=== PATIENT | female | born 1960 | race Caucasian/White ===

== ENCOUNTER → 2017-06-18 | Outpatient (CLI) | payer MEDICAID, SELFPAY | PROVIDERS: Family Provider Family Medicine; Visit Provider Orthopaedic Surgery | DX: M17.0 Bilateral primary osteoarthritis of knee (principal) | CPT/HCPCS: 73564 ==

== ENCOUNTER → 2017-07-10 15:59 | Outpatient (CLI) | payer MEDICAID, SELFPAY ==
--- NOTE | 2017-07-10 16:05 | MR_ITS ---
MR knee LT wo con HISTORY: Left knee pain mostly medial swelling and limited range of motion. ITS.REASON: INJURY OF LEFT KNEE, INITIAL ENCOUNTER ORDERING PHYSICIAN: Major Wasserman MD PATIENT AGE: 56 years COMPARISON: 11/07/2016 TECHNIQUE: Standard multiplanar multiecho sequences are performed without contrast. FINDINGS: The oblique sagittal images for the cruciate ligaments are limited. The patient was not able to tolerate repeating the images. Once again, the ACL is not identified consistent with chronic tear. There is thickening of the posterior cruciate ligament. There is a longitudinal tear involving the posterior horn of the medial meniscus which was not evident on the previous exam. The anterior horn of the lateral meniscus is not identified consistent with chronic tear/maceration versus postsurgical change. There is increased signal intensity of the posterior horn of the lateral meniscus but no obvious tear. There is tendinopathy/tendinosis of the patellar tendon. The collateral ligaments appear intact. There is a moderate sized knee joint effusion mainly in the suprapatellar region. Patellar cartilage is very thin to absent. There are severe osteoarthritic changes of all 3 compartments. There has been interval injection of radio opaque material into the subchondral cystic area of the lateral tibial plateau with decreased T2 signal in this region. Small subchondral cystic changes are present at the lateral tibial plateau centrally as well as the medial tibial plateau. There is increased T2 signal involving the medial tibial plateau which is more prominent than when compared to the previous exam consistent with underlying bone marrow edema. T2 hyperintensity also involves the subchondral portion of the lateral femoral condyle with cortical irregularity. There is also increased T2 signal involving the superior patella more prominent on today's study. IMPRESSION: 1. There is a new longitudinal tear involving posterior horn of the medial meniscus. 2. Anterior horn of the lateral meniscus is not identified consistent with chronic tear/maceration 3. Chronic tear of the ACL. 4. Moderate size knee joint effusion with severe tricompartmental osteoarthritis and subchondral cystic changes/bone marrow edema of the distal femur and proximal tibia and patella as described above. Prior injection of hypointense material within the lateral tibial plateau.
== END ==
PROVIDERS: Family Provider Family Medicine; PCP Family Medicine; Visit Provider Orthopaedic Surgery
DX: S89.92XA Unspecified injury of left lower leg, initial encounter (principal)
CPT/HCPCS: 73721

== ENCOUNTER → 2017-08-11 16:28 | Outpatient (CLI) | payer MEDICAID, SELFPAY ==
--- NOTE | 2017-08-11 | XR_ITS ---
XR chest 2V HISTORY: Hypertension ORDERING PHYSICIAN: Major Wasserman MD PATIENT AGE: 56 years FINDINGS: The cardiomediastinal silhouette and pulmonary vascularity are within normal limits. The lungs are clear without infiltrates, suspicious nodules, or pleural effusions. No acute bony abnormalities. There is moderate lumbar scoliosis convex left IMPRESSION: No acute finding or change from 12/09/2016
[2017-08-11 16:40] LABS: Microscopic, Urine URINE MICROSCOPIC (MICROSCOPIC)
[2017-08-11 17:02] LABS: Appearance,Urine CLEAR (Clear); Bilirubin,Urine Negative (Negative); Blood, Urine Negative (Negative); Color,Urine YELLOW (Yellow); Glucose,Urine (UA) Negative (Negative); Ketones,Urine Negative (Negative); Leukocyte Esterase,Urine Negative (Negative); Nitrate,Urine Negative (Negative); PH,Urine 5.5 (5.0-8.5); Protein,Urine Negative (Negative); Urobilinogen,Urine 0.2 EU/dl (0.2)
[2017-08-11 17:11] LABS: Basophils % 0.8 % (0.1-2.0); Eosinophils # 0.9 K/mm3 (0.0-0.4); Eosinophils % 17.9 % (0.1-12.0); Hemoglobin 13.4 g/dL (12.2-16.2); Lymphocytes # 1.3 K/mm3 (0.7-4.5); Lymphocytes % 24.5 K/mm3 (10-50); Mean Corpuscular HGB Conc 31.9 g/dL (31.8-35.4); Mean Corpuscular Hemoglobin 31.3 pg (27.0-31.2); Mean Corpuscular Volume 98.1 fl (81-99); Mean Platelet Volume 7.8 fl (7.4-10.4); Monocytes # 0.3 K/mm3 (0.1-1.0); Monocytes % 5.2 % (1.7-9.3); Neutrophils # 2.7 K/mm3 (1.8-7.8); Neutrophils % 51.7 % (37.0-80.0); Platelet Count 252 K/mm3 (142-424); Red Blood Count 4.28 M/mm3 (4.20-5.40); Red Cell Distribution Width 12.8 % (11.5-17.5); White Blood Count 5.1 K/mm3 (4.8-10.8)
[2017-08-11 17:17] LABS: INR 1.03 (0.9-1.1); Prothrombin Time 11.1 seconds (9.4-11.8)
[2017-08-11 17:24] LABS: Bacteria,Urine Trace /lpf; Squamous Epithelial Cell,Urine Occasional #/hpf (0-5)
[2017-08-11 18:09] LABS: Erythrocyte Sedimentation Rate 21 mm/hr (0-30)
[2017-08-11 19:33] LABS: Alanine Aminotransferase 95 U/L (12-78); Albumin Level 3.7 gm/dL (3.4-5.0); Albumin/Globulin Ratio 1.4 (1.1-1.8); Alkaline Phosphatase 99 U/L (46-116); Anion Gap 14.1 mEq/L (5-15); Aspartate Amino Transferase 47 U/L (15-37); Bilirubin,Total 0.4 mg/dL (0.2-1.0); Blood Urea Nitrogen 27 mg/dL (7-18); Calcium 8.9 mg/dL (8.5-10.1); Carbon Dioxide 27 mmol/L (21.0-32.0); Chloride 106 mmol/L (98-107); Creatinine,Serum 1.03 mg/dL (0.55-1.02); Estimated Glomerular Filt Rate 55 ml/min (>60); GFR (African American) 67 ML/MIN (>60); Globulin 2.6 gm/dl (1.3-3.2); Glucose 108 mg/dL (74-106); Potassium 4.1 mmoL/L (3.5-5.1); Sodium 143 mmol/L (136-145); Total Protein,Serum 6.3 gm/dL (6.4-8.2)
[2017-08-11 19:36] LABS: C-Reactive Protein < 0.2 mg/L (0.0-0.9)
== END ==
PROVIDERS: PCP Nurse Practitioner; Visit Provider Orthopaedic Surgery
DX: Z01.818 Encounter for other preprocedural examination (principal); M17.12 Unilateral primary osteoarthritis, left knee
CPT/HCPCS: 36415; 71046; 80053; 81001; 85025; 85610; 85651; 86140; 86850; 93005

== ENCOUNTER 2017-08-19 14:29 | Inpatient (IN) | payer MEDICAID, SELFPAY ==
[2017-08-18 12:52] VITALS: BMI 41.0
[2017-08-19] VITALS (19 sets, daily range): BP systolic 112–197; BP diastolic 70–102; PULSE 63–78; RESP 17–20; TEMP 36.1–43; O2SAT 94–98; BMI 41.0; BMI 44.6
--- NOTE | 2017-08-19 | XR_ITS ---
Repeat View XR CLINICAL INDICATION: Knee replacement ORDERING PHYSICIAN: Major Wasserman MD PATIENT AGE: 56 years COMPARISON: None FINDINGS: 2 images submitted with the C-arm show good alignment of the total knee arthroplasty. Fluoroscopy time 5 seconds IMPRESSION: Status post total arthroplasty as described above
--- NOTE | 2017-08-19 06:36 | HMH.ANESCL ---
[facility] Anesthesia Checklist - Structural Data Admitted From: Home Planned Operative Procedure/s: l total knee Consent for Planned Operative Procedure(s) Verified: Yes Verified Documents: Surgical Consent - Airway Assessment C-Spine Mobility Assessed: Yes TMJ Mobility Assessed: Yes Dentition: Dentures-good fit - Neurological Assessment Level of Consciousness: Awake, Alert - Psychosocial Assessment Concerns Regarding Surgery: pt got very sick for every surgery - Anesthesia Plan Anesthesia Risk discussed: Yes Anesthesia Plan: Verified ASA Class: II Anesthesia Type: General - Preoperative Comments Pre-Operative Comments: will do fem sciatic block [facility] Anesthesia HX I have reviewed the patient's past medical history: Yes Medical History: Reports:: Depression, Hypertension Denies:: Cancer, Diabetes Mellitus Type 1, Diabetes Mellitus Type 2, Internal Pacemaker, MRSA Other Medical History: Reports: Arthritis, Thyroid Disease, Other (IBS) Laterality Cases: Bilateral: Arthroscopy Knee Other Surgeries: Yes: Colonoscopy, Hysterectomy-Total, Other (Gallbladder, Gastric Bypass.). No: Pacemaker Amputation: No Fractures: Yes (right first toe fracture) *Family Hx:: Anemia, Cancer, Diabetes, Heart Attack, Hypertension, Thyroid Disorder
[2017-08-19 07:03] LABS: Basophils % 0.6 % (0.1-2.0); Eosinophils # 0.7 K/mm3 (0.0-0.4); Eosinophils % 11.1 % (0.1-12.0); Hematocrit 40.4 % (37.0-47.0); Hemoglobin 13.9 g/dL (12.2-16.2); Lymphocytes # 1.5 K/mm3 (0.7-4.5); Lymphocytes % 23.4 K/mm3 (10-50); Mean Corpuscular HGB Conc 34.4 g/dL (31.8-35.4); Mean Corpuscular Hemoglobin 32.4 pg (27.0-31.2); Mean Platelet Volume 8.5 fl (7.4-10.4); Monocytes # 0.3 K/mm3 (0.1-1.0); Monocytes % 4.4 % (1.7-9.3); Neutrophils # 3.9 K/mm3 (1.8-7.8); Neutrophils % 60.5 % (37.0-80.0); Platelet Count 278 K/mm3 (142-424); Red Cell Distribution Width 12.4 % (11.5-17.5); White Blood Count 6.4 K/mm3 (4.8-10.8)
[2017-08-19 07:52] LABS: C-Reactive Protein < 0.2 mg/L (0.0-0.9)
[2017-08-19 08:10] LABS: Erythrocyte Sedimentation Rate 26 mm/hr (0-30)
--- NOTE | 2017-08-19 09:06 | SUR.OPER ---
0733- time into OR delay due to leg ayala dropped upon opening room & resterilzed
--- NOTE | 2017-08-19 12:04 | SUR.PREOP ---
Addendum entered by Annia Tee RN 08/19/17 12:06: 1205-udated family, second time on pt condition and surgery. Original Note: Addendum entered by Annia Tee RN 08/19/17 12:06: Original Note: Addendum entered by Annia Tee RN 08/19/17 12:05: 1130 Original Note: updated family members on pt, voiced understanding.
--- NOTE | 2017-08-19 13:10 | HMH.ANESI ---
[facility] Anesthesia Record Part I Intake, IV Amount: 1,750 Estimated blood loss (mL): 100 Urine output (mL): 200 Blood Products used (#): none Blood Pressure: 197/95 SaO2: 96 Pulse Rate: 75 Respiratory Rate: 18 Temperature: 98.2 F Patient is:: Drowsy, Stable Stable to PACU at:: 13:10
--- NOTE | 2017-08-19 13:13 | P.PN_ITS ---
[facility] Anesthesia Record Part I Intake, IV Amount: 1,750 Estimated blood loss (mL): 100 Urine output (mL): 200 Blood Products used (#): none Blood Pressure: 197/95 SaO2: 96 Pulse Rate: 75 Respiratory Rate: 18 Temperature: 98.2 F Patient is:: Drowsy, Stable Stable to PACU at:: 13:10
--- NOTE | 2017-08-19 13:13 | HMH.ANESII ---
[facility] Anesthesia Record Part II Discharge Time: 13:40 Destination: Medical Surgical Department PACU nurse assessment reviewed?: Yes Patient Condition:: Good Anesthesia Complications:: None
--- NOTE | 2017-08-19 13:15 | XR_ITS ---
XR knee LT 3V HISTORY: Follow-up total knee replacement ITS.REASON: s/p left total knee arthroplasty ORDERING PHYSICIAN: Major Wasserman MD PATIENT AGE: 56 years COMPARISON: 06/18/2017 FINDINGS: Status post total knee replacement with good alignment of the prosthesis. Postsurgical drain and gas is present. There remains sclerosis of the lateral aspect of the tibial plateau as before probably related to recent subchondroplasty IMPRESSION: Status post total arthroplasty with good alignment as described above
--- NOTE | 2017-08-19 14:25 | HMH.OPNOTE ---
Date of procedure: 08/19/17 Pre-op Diagnosis:: Advanced tricompartmental degenerative arthritis, left knee Post-op Diagnosis:: Advanced tricompartmental degenerative arthritis, left knee Post-op diagnosis:: same Procedure performed:: Cemented total knee arthroplasty, left knee Surgeon:: Major Wasserman MD Coal Pulverizing Operator(s):: Dr. Lima (Dr. Lima's assistance was needed given the complexity and difficulty of the procedure). JOB TRAINER:: Ulises Simmons Anesthesia: GETA, regional Estimated blood loss (mL): 100 Clinical Note:: Patient is a 56-year-old female with end-stage osteoarthritis and [id number] tricompartmental osteoarthritis with more significant degeneration over the lateral compartment and a progressive valgus deformity and flexion contracture presented with unremitting severe pain not relieved by conservative management. The pain is advanced to the point that it is becoming a hazard for the patient with risk of falling and injuring herself. Total knee arthroplasty is indicated to relieve the pain, improve function, reduce the risk of falls and to improve quality of life. Operative findings:: As noted on the preoperative evaluation, the knee joint had a fixed flexion of 5? and fixed valgus deformity of 5?. As seen on the x-rays, the lateral and patellofemoral compartments showed advanced degenerative changes with [id number] appearance. The menisci and cruciate ligaments were significantly degenerate. There was extensive osteophyte formation over all 3 compartments. There were a couple of loose bodies at the back of the knee. Bone quality was satisfactory. Operative note:: On the day of the surgery the patient and her were seen in the preoperative area. I reviewed the clinical and x-ray findings with the patient and her . I again discussed the diagnosis, natural history and management options in detail including both nonsurgical and surgical. She has end-stage degenerative arthritis of her LEFT knee and has failed to respond satisfactorily to conservative management so far and has opted for a LEFT total knee arthroplasty. Her knee joint also gives out and she is at risk of falls potentially resulting in fractures. She mobilizes with a cane. We again discussed the details of the procedure, risks and benefits and alternatives in detail. The complications discussed include but are not limited to infection, injury to nerves and blood vessels including injury to popliteal artery, injury to tendons and ligaments, DVT and PE, fat embolism, intraoperative fracture, limb length inequality, patella fracture, patellofemoral instability, patellar clunk syndrome, quadriceps and patellar tendon rupture, implant failure, component loosening, periprosthetic femur and tibia fractures, stiffness(arthrofibrosis), limp, incomplete relief of pain, incomplete functional recovery, likely need for further surgery in future including revision and anesthetic complications including heart attack, stroke and even . We discussed how any of these events can be devastating. We have discussed nonsurgical alternatives as well. Patient understands and wishes to proceed with a LEFT total knee arthroplasty and I believe that she is fully informed as to the risks, benefits, and alternatives including nonsurgical alternatives. We also discussed the postoperative course including the rehab and physical therapy required. She lives with her family and is planning to go back home with home health after surgery. A physical examination was performed and documented. Consent form was reviewed and signed. The patient was then brought to the operating room and a general anesthesia was administered by the paralegal instructor. Prior to that patient had femoral and sciatic nerve blocks in the pre-anesthetic area. The patient was then positioned supine on the operating table. All the bony prominences were appropriately padded. A well-padded tourniquet cuff was placed high over the upper thigh.
--- NOTE | 2017-08-19 14:34 | P.OP_ITS ---
Date of procedure: 08/19/17 Pre-op Diagnosis:: Advanced tricompartmental degenerative arthritis, left knee Post-op Diagnosis:: Advanced tricompartmental degenerative arthritis, left knee Post-op diagnosis:: same Procedure performed:: Cemented total knee arthroplasty, left knee Surgeon:: Major Wasserman MD Instructional Design Consultant(s):: Dr. Lima (Dr. Lima's assistance was needed given the complexity and difficulty of the procedure). RETAIL FIELD MERCHANDISER:: Ulises Simmons Anesthesia: GETA, regional Estimated blood loss (mL): 100 Clinical Note:: Patient is a 56-year-old female with end-stage osteoarthritis and [id number] tricompartmental osteoarthritis with more significant degeneration over the lateral compartment and a progressive valgus deformity and flexion contracture presented with unremitting severe pain not relieved by conservative management. The pain is advanced to the point that it is becoming a hazard for the patient with risk of falling and injuring herself. Total knee arthroplasty is indicated to relieve the pain, improve function, reduce the risk of falls and to improve quality of life. Operative findings:: As noted on the preoperative evaluation, the knee joint had a fixed flexion of 5 ? and fixed valgus deformity of 5?. As seen on the x-rays, the lateral and patellofemoral compartments showed advanced degenerative changes with bone-on- bone appearance. The menisci and cruciate ligaments were significantly degenerate. There was extensive osteophyte formation over all 3 compartments. There were a couple of loose bodies at the back of the knee. Bone quality was satisfactory. Operative note:: On the day of the surgery the patient and her were seen in the preoperative area. I reviewed the clinical and x-ray findings with the patient and her . I again discussed the diagnosis, natural history and management options in detail including both nonsurgical and surgical. She has end-stage degenerative arthritis of her LEFT knee and has failed to respond satisfactorily to conservative management so far and has opted for a LEFT total knee arthroplasty. Her knee joint also gives out and she is at risk of falls potentially resulting in fractures. She mobilizes with a cane. We again discussed the details of the procedure, risks and benefits and alternatives in detail. The complications discussed include but are not limited to infection, injury to nerves and blood vessels including injury to popliteal artery, injury to tendons and ligaments, DVT and PE, fat embolism, intraoperative fracture, limb length inequality, patella fracture, patellofemoral instability, patellar clunk syndrome, quadriceps and patellar tendon rupture, implant failure, component loosening, periprosthetic femur and tibia fractures, stiffness( arthrofibrosis), limp, incomplete relief of pain, incomplete functional recovery , likely need for further surgery in future including revision and anesthetic complications including heart attack, stroke and even . We discussed how any of these events can be devastating. We have discussed nonsurgical alternatives as well. Patient understands and wishes to proceed with a LEFT total knee arthroplasty and I believe that she is fully informed as to the risks , benefits, and alternatives including nonsurgical alternatives. We also discussed the postoperative course including the rehab and physical therapy required. She lives with her family and is planning to go back home with home health after surgery. A physical examination was performed and documented. Consent form was reviewed and signed. The patient was then brought to the operating room and a general anesthesia was administered by the form setter. Prior to that patient had femoral and sciat
--- NOTE | 2017-08-19 17:05 | SUR.PHASEI ---
f/c drained of 225 ml clear dark yellow urine, hemovac drained of 25 ml dark red viscous blood, hemovac clamped at [address]asserman, not tob be unclamped until 1430, hemovac tubing unclamped at 1430 by Pam Bello RN, verbal order for 3 views left knee given by Dr Wasserman and entered by Florence Garcia RN, Briana Winston and Jolene Blackwood to PACU for xrays, verbal order given by Dr Wasserman for knee immobilizer to be applied by PT, order entered by Florence Garcia RN and call made to PT, confirmed by Candy that knee immobilizer would be applied by PT
[2017-08-19 18:34] LABS: Microscopic,Cath URINE MICROSCOPIC (MICROSCOPIC)
[2017-08-19 19:43] LABS: Appearance,Urine/Cath CLEAR (Clear); Bilirubin,Cath Negative (Negative); Blood, Urine/Cath Negative (Negative); Color,Urine/Cath YELLOW (Yellow); Glucose,Urine/Cath (UA) Negative (Negative); Ketones,Urine/Cath Negative (Negative); Leukocyte Esterase,Cath Negative (Negative); Nitrate,Cath Negative (Negative); PH,Urine/Cath 5.5 (5.0-8.5); Protein,Urine/Cath Negative (Negative); Urobilinogen,Cath 0.2 EU/dl (0.2)
[2017-08-19 21:14] LABS: Bacteria,Urine/Cath 1+ /lpf; Mucus,Urine/Cath 1+ /lpf; RBC,Urine/Cath Occasional # /hpf (0-3); Squamous Epithelial Ur./Cath Occasional #/hpf (0-5); WBC,Urine/Cath Occasional #/hpf (0-3)
[2017-08-20] VITALS (12 sets, daily range): BP systolic 100–152; BP diastolic 57–99; PULSE 65–98; RESP 16–22; TEMP 36.8–37.4; O2SAT 89–99; BMI 44.7
--- NOTE | 2017-08-20 03:33 | PC.NURSE ---
Pt has rested well this shift with c/o mild pain in her left knee r/t surgical procedure. Pt continues to have polar pack and knee immobilizer to left knee. Femoral, pedal, and tibial pulses all palpable and strong. No s/s of compartment syndrome or infection noted to leg, unable to visulize incision due to dressing which is CDI. Pt is able to wiggle toes and feel touch which are pink and warm. Homavac in place with sanguineous drainage present, 120 ml of draining emptied at beginning of shift. F/C in place and draining clear yellow urine. Pt c/o pressure in bladder even though catheter is in place, bladder is not distended upon palpation and catheter is in place during inspection of butch area. Lung clear t/o auscultation, pt educated on using incentive spirometer, pt states she is using it when she is awake. BS hypoactive, pt denies passing flatus, LBM 08/18/17. Scud noted to rt leg. VSS. No acute distress noted. Will continue to monitor.
--- NOTE | 2017-08-20 06:44 | PC.NURSE ---
18 cleared from ASSET COORDINATOR
[2017-08-20 07:12] LABS: Anion Gap 11.4 mEq/L (5-15); Blood Urea Nitrogen 25 mg/dL (7-18); Carbon Dioxide 28 mmol/L (21.0-32.0); Chloride 103 mmol/L (98-107); Creatinine Clearance Estimated 50 mL/min (0-300); Creatinine,Serum 1.23 mg/dL (0.55-1.02); Estimated Glomerular Filt Rate 45 ml/min (>60); GFR (African American) 55 ML/MIN (>60); Glucose 132 mg/dL (74-106); Potassium 3.4 mmoL/L (3.5-5.1); Sodium 139 mmol/L (136-145)
--- NOTE | 2017-08-20 07:21 | HMH.CONS ---
*Admission Date: 08/19/17 *Chief complaint: Postop left knee replacement *History of present illness: 56-year-old female underwent total left knee replacement by Dr. Wasserman yesterday. I have been consulted for medical management. Patient is a longtime patient in my practice who sees my nurse practitioner Saundra Currie. She has a history of hypothyroidism and swelling of the lower extremities as well as obesity. [facility] History I have reviewed the patient's past medical history: Yes Medical History: Reports:: Depression, Hypertension Denies:: Cancer, Diabetes Mellitus Type 1, Diabetes Mellitus Type 2, Internal Pacemaker, MRSA, Seizures Other Medical History: Reports: Arthritis, Thyroid Disease, Other (IBS) Laterality Cases: Left: Arthroscopy Knee Other Surgeries: Yes: Colonoscopy, Hysterectomy-Total, Other (Gallbladder, Gastric Bypass.). No: Pacemaker Amputation: No Fractures: Yes (right first toe fracture) - *Social History Educational Level: Completed High School Smoking Status: Never smoker Tobacco Type: cigarettes Alcohol Intake: never Occupational Status: unemployed, disabled Housing: house Household Members: spouse - Psychiatric History Expresses thoughts of harming self/others: None Suicide Plan Description: No Plan Pschychiatric History:: Reports:: Depression *Family Hx:: Anemia, Cancer, Diabetes, Heart Attack, Hypertension, Thyroid Disorder Review of Systems - Review of Systems Review of systems:: pertinent systems reviewed and negative unless documented below - Constitutional Denies anorexia, Denies chills, Denies fever(s) - *Cardiovascular Reports chest pain - *Respiratory Denies cough, Denies shortness of breath - *Gastrointestinal Denies abdominal pain - *Musculoskeletal Reports joint pain Meds Home Medications Medication Instructions Recorded Confirmed Type aspirin 81 mg chewable tablet 81 mg PO ONCE 07/23/17 08/19/17 History cholecalciferol (vitamin D3) 1,000 1,000 unit PO DAILY 07/23/17 08/19/17 History unit capsule cyclobenzaprine 10 mg tablet 10 mg PO Q8H 07/23/17 08/19/17 History furosemide 40 mg tablet 40 mg PO ONCE 07/23/17 08/19/17 History levothyroxine 100 mcg capsule 100 mcg PO DAILY 07/23/17 08/19/17 History naproxen 500 mg tablet 500 mg PO Q12H 07/23/17 08/19/17 History omeprazole 40 mg capsule,delayed 40 mg PO DAILY 07/23/17 08/19/17 History release pramipexole 0.125 mg tablet 0.125 mg PO HS 07/23/17 08/19/17 History venlafaxine ER 75 mg 75 mg PO DAILY 07/23/17 08/19/17 History capsule,extended release 24 hr zinc acetate 50 mg (zinc) capsule 50 mg PO DAILY 07/23/17 08/19/17 History Propranolol HCl 40 mg PO DAILY 08/19/17 08/19/17 History Allergies Allergy/AdvReac Type Severity Reaction Status Date / Time hyaluronic acid AdvReac Severe Verified 08/19/17 06:34 [From Caty] Exam Vital signs and Labs for Last 24 Hours: Temp Pulse Resp BP Pulse Ox 98.4 F 81 22 100/67 89 L 08/20/17 05:34 08/20/17 05:34 08/20/17 05:34 08/20/17 05:34 08/20/17 05:34 Laboratory Results - last 24 hr 08/19/17 06:49: ESR 26 08/19/17 06:49: C-Reactive Protein < 0.2 08/19/17 06:49: Blood Type AB Positive, Antibody Screen Negative, Crossmatch (AHG) See Detail 08/19/17 : Urine Color Yellow, Urine Appearance Clear, Urine pH 5.5, Ur Specific [place] 1.020, Urine Protein Negative, Urine Glucose (UA) Negative, Urine Ketones Negative, Urine Blood Negative, Urine Nitrate Negative, Urine Bilirubin Negative, Urine Urobilinogen 0.2, Ur Leukocyte Esterase Negative, Urine RBC Occasional, Urine WBC Occasional, Ur Squamous Epith Cells Occasional, Urine Bacteria 1+, Hyaline Casts 5-10 I & O for Last 24 hours: Intake & Output 08/17/17 08/18/17 08/19/17 08/20/17 11:59 11:59 11:59 11:59 Intake Total 3273 / 3273 Output Total 170 / 170 Balance 3103 / 3103 Weight 285 lb 0.006 oz 285 lb Narrative: She is sitting up in bed and is in no distress. HEENT
--- NOTE | 2017-08-20 07:24 | P.CONS_ITS ---
*Admission Date: 08/19/17 *Chief complaint: Postop left knee replacement *History of present illness: 56-year-old female underwent total left knee replacement by Dr. Wasserman yesterday. I have been consulted for medical management. Patient is a longtime patient in my practice who sees my nurse practitioner Saundra Currie. She has a history of hypothyroidism and swelling of the lower extremities as well as obesity. [facility] History I have reviewed the patient's past medical history: Yes Medical History: Reports:: Depression, Hypertension Denies:: Cancer, Diabetes Mellitus Type 1, Diabetes Mellitus Type 2, Internal Pacemaker, MRSA, Seizures Other Medical History: Reports: Arthritis, Thyroid Disease, Other (IBS) Laterality Cases: Left: Arthroscopy Knee Other Surgeries: Yes: Colonoscopy, Hysterectomy-Total, Other (Gallbladder, Gastric Bypass.). No: Pacemaker Amputation: No Fractures: Yes (right first toe fracture) - *Social History Educational Level: Completed High School Smoking Status: Never smoker Tobacco Type: cigarettes Alcohol Intake: never Occupational Status: unemployed, disabled Housing: house Household Members: spouse - Psychiatric History Expresses thoughts of harming self/others: None Suicide Plan Description: No Plan Pschychiatric History:: Reports:: Depression *Family Hx:: Anemia, Cancer, Diabetes, Heart Attack, Hypertension, Thyroid Disorder Review of Systems - Review of Systems Review of systems:: pertinent systems reviewed and negative unless documented below - Constitutional Denies anorexia, Denies chills, Denies fever(s) - *Cardiovascular Reports chest pain - *Respiratory Denies cough, Denies shortness of breath - *Gastrointestinal Denies abdominal pain - *Musculoskeletal Reports joint pain Meds Home Medications Medication Instructions Recorded Confirmed Type aspirin 81 mg chewable tablet 81 mg PO ONCE 07/23/17 08/19/17 History cholecalciferol (vitamin D3) 1,000 1,000 unit PO DAILY 07/23/17 08/19/17 History unit capsule cyclobenzaprine 10 mg tablet 10 mg PO Q8H 07/23/17 08/19/17 History furosemide 40 mg tablet 40 mg PO ONCE 07/23/17 08/19/17 History levothyroxine 100 mcg capsule 100 mcg PO DAILY 07/23/17 08/19/17 History naproxen 500 mg tablet 500 mg PO Q12H 07/23/17 08/19/17 History omeprazole 40 mg capsule,delayed 40 mg PO DAILY 07/23/17 08/19/17 History release pramipexole 0.125 mg tablet 0.125 mg PO HS 07/23/17 08/19/17 History venlafaxine ER 75 mg 75 mg PO DAILY 07/23/17 08/19/17 History capsule,extended release 24 hr zinc acetate 50 mg (zinc) capsule 50 mg PO DAILY 07/23/17 08/19/17 History Propranolol HCl 40 mg PO DAILY 08/19/17 08/19/17 History Allergies Allergy/AdvReac Type Severity Reaction Status Date / Time hyaluronic acid AdvReac Severe Verified 08/19/17 06:34 [From Caty] Exam Vital signs and Labs for Last 24 Hours: Temp Pulse Resp BP Pulse Ox 98.4 F 81 22 100/67 89 L 08/20/17 05:34 08/20/17 05:34 08/20/17 05:34 08/20/17 05:34 08/20/17 05:34 Laboratory Results - last 24 hr 08/19/17 06:49: ESR 26 08/19/17 06:49: C-Reactive Protein < 0.2 08/19/17 06:49: Blood Type AB Positive, Antibody Screen Negative, Crossmatch ( AHG) See Detail 08/19/17 : Urine Color Yellow, Urine Appearance Clear, Urine pH 5.5, Ur Specific [place] 1.020, Urine Protein Negative, Urine Glucose (U
--- NOTE | 2017-08-20 07:34 | HMH.PHAVTE ---
[facility] Pharmacy VTE Monitoring - Patient Demographics Admission date: 08/19/17 Report Date: 08/20/17 Time: 07:34 Allergies/Adverse Reactions: Patient Allergies hyaluronic acid [From Supartz] Adverse Reaction (Severe, Verified 08/19/17 06:34) Height: 1.7 m Weight: 129.274 kg Patient Problems: Current Active Problems Status post left knee replacement (Acute) Hypothyroidism (Acute) Hypertension (Acute) - VTE Risk Labs: VTE Related Lab Results Hgb 13.9 g/dL (12.2-16.2) 08/19/17 06:49 Hct 40.4 % (37.0-47.0) 08/19/17 06:49 Plt Count 278 K/mm3 (142-424) 08/19/17 06:49 BUN 25 mg/dL (7-18) H 08/20/17 06:35 Creatinine 1.23 mg/dL (0.55-1.02) H 08/20/17 06:35 Estimated Creat Clear 50 mL/min (0-300) 08/20/17 06:35 Was VTE Risk Assessment Performed: Yes VTE Risk Level: Very Low Risk Clinical Trial Participant: No - Prophylaxis VTE Prophylaxis Ordered?: Yes Types of VTE Prophylaxis: TEDS Knee High
[2017-08-20 07:35] LABS: Basophils % 0.2 % (0.1-2.0); Eosinophils # 0.1 K/mm3 (0.0-0.4); Eosinophils % 0.8 % (0.1-12.0); Hematocrit 33.6 % (37.0-47.0); Lymphocytes # 1.2 K/mm3 (0.7-4.5); Lymphocytes % 14.4 K/mm3 (10-50); Mean Corpuscular HGB Conc 33.1 g/dL (31.8-35.4); Mean Corpuscular Volume 96.8 fl (81-99); Mean Platelet Volume 8.5 fl (7.4-10.4); Monocytes # 0.4 K/mm3 (0.1-1.0); Monocytes % 4.6 % (1.7-9.3); Neutrophils # 6.7 K/mm3 (1.8-7.8); Platelet Count 205 K/mm3 (142-424); Red Blood Count 3.47 M/mm3 (4.20-5.40); Red Cell Distribution Width 12.5 % (11.5-17.5); White Blood Count 8.3 K/mm3 (4.8-10.8)
--- NOTE | 2017-08-20 07:41 | PC.NURSE ---
report given to bryce amaya rn
--- NOTE | 2017-08-20 10:25 | HMH.PTEV ---
Physical Therapy Evaluation Rehab PT IP Evaluation Start: 08/19/17 14:03 Freq: ONCE Status: Active Protocol: Document 08/20/17 10:20 [email or web address] (Rec: 08/20/17 10:25 [email or web address] [id number]) Subjective/History History History This is the initial Physical Therapy evaluation for Sue Wood. Pt is a 56 y/o female admitted to [facility] s/p L TKA. Subjective Subjective PT RepORTS 8/10 PAIN w/ mvmnt of LLE Rehab PT IP Eval Objective Appearance Patient Behavior Appropriate Fearful Patient Orientation Person Place Time Difficulty following instructions none Speech Pattern Clear Ambulation Patient Able to Ambulate Yes Ambulation Observation IP General Gait Pattern Observation Antalgic Gait Decrease Weight Bear (L) Decrease Stride Lngth (L) Ambulation Distance (feet) 2 Ambulation Assistive Device Rolling Walker Balance Ability to Arise Able, uses arms to help Sitting Balance Steady, safe Standing Balance Unsteady Dynamic Sitting Balance Ability Good Dynamic Standing Balance Ability Poor Transfers Bed Transfer Ability Minimal x 1 (25% assist) Chair Transfer Ability Minimal x 1 (25% assist) Sit to Stand Bed Transfer Ability Minimal x 1 (25% assist) Sit to Stand Chair Transfer Ability Minimal x 1 (25% assist) Pain Left Knee Pain Intensity 8 ROM LLE PT ROM Status ABN Abnormal ROM Comment severe limit 2nd to pain and knee immobilizer MMT LLE PT MMT ABN Abnormal MMT Grade 3-/5 Rehab PT IP prob,goals,plan Problems Date of Evaluation: 08/20/17 PT IP Problems Bed Mobility Transfers Gait Self care Safety Rehab Potential Rehab Potential Fair Equipment Needs Assistive Devices Rolling / Wheeled Walker Plan PT Intervention Plan Bed Mobility Transfers Gait Balance Self care Safety PT Plan Frequency BID Duration LOS Discharge Goals Bed Transfer Ability Contact Maciej
--- NOTE | 2017-08-20 11:46 | SW/DCPLANNER ---
WENT IN TO SPEAK WITH PATIENT REGARDING HER DISCHARGE PLAN: PATIENT STATED SHE RESIDES AT HOME WITH SPOUSE, SHE SAID SHE DRAWS DISABILITY AND HER IS A DATABASE SPECIALIST...SHE HAS PASSPORT INSURANCE AND I SENT IT TO [facility]... PATIENT APPEARS TO NOT HAVE AN INSURANCE THAT WILL PAY FOR SKILLED REHAB SO I WILL SPEAK WITH PATIENT AND ASSIST WITH HOME HEALTH SERVICES... [place] STATED [place] AND DOESN'T KNOW HOW SHE IS GOING TO INTO HER HOUSE, WILL GET AN AMBULANCE AT HER EXPENSE TO TAKE HER HOME...IF ORDERED HOME HEALTH I WILL SET IT UP AT TIME OF DISPOSITION....
--- NOTE | 2017-08-20 11:48 | HMH.ORTHPN ---
Subjective Date: 08/20/17 Time: 10:45 Principal diagnosis: Status post total knee arthroplasty, left Interval history: Patient is status post left total knee arthroplasty post op day #1. Patient is sitting up in a chair. Says she is doing well and reports no problems. Patient reports moderate knee pain and says it's well-controlled with medication. Patient still reports some paresthesias in the lower leg and foot from the nerve blocks. No history of any nausea or vomiting. No history of any cough, chest pain, shortness of breath or palpitations. Patient is eating and drinking well. PN: Obj Ex Vital signs: Temp Pulse Resp BP Pulse Ox 99.3 F 72 18 152/99 94 L 08/20/17 10:11 08/20/17 10:11 08/20/17 10:11 08/20/17 10:11 08/20/17 10:11 Narrative: Intake & Output 08/19/17 08/20/17 08/20/17 19:59 03:59 11:59 Intake Total 2110 / 0 1403 / 1403 Output Total 120 / 120 750 / 750 Balance 2109 / 2109 -120 / -120 653 / 653 Weight 285 lb 285 lb Laboratory Results - last 24 hr 08/19/17 : Urine Color Yellow, Urine Appearance Clear, Urine pH 5.5, Ur Specific [place] 1.020, Urine Protein Negative, Urine Glucose (UA) Negative, Urine Ketones Negative, Urine Blood Negative, Urine Nitrate Negative, Urine Bilirubin Negative, Urine Urobilinogen 0.2, Ur Leukocyte Esterase Negative, Urine RBC Occasional, Urine WBC Occasional, Ur Squamous Epith Cells Occasional, Urine Bacteria 1+, Hyaline Casts 5-10 08/20/17 06:35: WBC 8.3 D, RBC 3.47 L, Hgb 11.0 L D, Hct 33.6 L, MCV 96.8, MCH 32.0 H, MCHC 33.1, RDW 12.5, Plt Count 205 D, MPV 8.5, Neut % (Auto) 80.0, Lymph % (Auto) 14.4, [place] % (Auto) 4.6, Eos % (Auto) 0.8, Baso % (Auto) 0.2, Neut # (Auto) 6.7, Lymph # (Auto) 1.2, [place] # (Auto) 0.4, Eos # (Auto) 0.1, Baso # (Auto) 0.0 08/20/17 06:35: Sodium 139, Potassium 3.4 L, Chloride 103, Carbon Dioxide 28, Anion Gap 11.4, BUN 25 H, Creatinine 1.23 H, Estimated Creat Clear 50, Estimated GFR 45 L, Est GFR ( Amer) 55 L, Glucose 132 H Physical exam: General appearance: alert, active, awake, no acute distress ENT: normal exam; mucous membranes moist Neck: Soft and supple, trachea midline, full range of movements Cardiovascular: regular rate & rhythm, S1-S2 heard, normal peripheral pulses Respiratory: clear to auscultation, normal breath sounds Abdomen: Soft and nontender, normal bowel sounds Neuro: alert, oriented x 3, asset analyst II-XII normal as tested Psych: normal and appropriate mood/affect; communicates well Extremities: On examination of the left knee, a knee immobilizer is in place. On examination out of the knee immobilizer, dressings are clean, dry and intact. Knee range of motion is 10-70? of flexion. Distal pulses are 2+. Capillary refill is brisk. Patient has paresthesias over the right leg and foot from the nerve blocks. Thigh and calf are soft and nontender. Extensor mechanism is intact and quadriceps is actively yann. She is able to just about actively lift the leg off the chair. The Hemovac drain is in place and total drainage overnight was 150 mL. Progress Note: A&P (1) Status post left knee replacement Status: Acute Assessment and plan: Status post left total knee arthroplasty, postoperative day #1, doing well I reviewed the intraoperative findings and procedure with the patient. I have given a paper copy of the postoperative knee x-ray to the patient. Patient started physical therapy and mobilization today with the help of physical therapist. Discontinue IV fluids as eating and drinking well. Continue SHIRT PRESSER for another day and continue DVT prophylaxis. Care management consult regarding discharge planning. Medical management as per Dr. Judd. Current Visit: Yes
--- NOTE | 2017-08-20 15:49 | PC.NURSE ---
Lungs clear, bowel sounds active x4. Pt has been up to the chair in the am w/heel elevated on pillow. Instructed on use of incentive spirometer, pt states she uses it 10 times q1hr. Huitron dc'd w/700ml's out. Hemovac in place w/bloody drainage noted. HAIR CUTTER dosage changed to 0.5mg q10 w/lockout of 20 per md request due pt being drowsy from use. Respiration are easy and non labored at approx 16-20 per minute. No s/s of respiratory depression noted. Family at bedside. Will continue to monitor.
--- NOTE | 2017-08-20 17:58 | PC.NURSE ---
Good urine output since removal of kiser. Pt was assisted to bedside commode with minimal assist x2. She reported severe pain upon return to bed. Toradol administered with satisfactory pain relief. Polar pack in place. 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
--- NOTE | 2017-08-20 18:19 | PC.NURSE ---
Care management rounds: Discussed pt needs after dc and dc plan
--- NOTE | 2017-08-20 18:59 | PC.NURSE ---
report to be given to Hannah Alarcon RN
[2017-08-21] VITALS (13 sets, daily range): BP systolic 100–168; BP diastolic 50–84; PULSE 57–89; RESP 18–24; TEMP 36.3–38.8; O2SAT 93–100
--- NOTE | 2017-08-21 03:48 | PC.NURSE ---
Pt has c/o pain this shift in her left knee r/t surgical procedure, medicated with COATER SLATE and other PRN pain medication. Pt had epsiode of being nauseated and shakiness, PRN zofran administered and v/s taken, WNL, pt states she think it is the morphine. Polar pack in place to left knee, dressing CDI, hemovac in place and draining sanguineous draining. Pt uses immobilizer when getting up tp BSC, pt does well with 2 assist to BSC. 2L O2 NC in place. Pt educated on use of incentive spirometer. Lung sounds clear. BS active, pt states she is passing flatus. VSS. No acute distress noted. Will continue to monitor.
--- NOTE | 2017-08-21 06:54 | HMH.ACPN2 ---
Internal Medicine - PN: Subj *Date: 08/21/17 *Time: 06:54 Interval history: The patient has no complaints this morning. She did develop some nausea yesterday evening and overnight and she believes she may have overdone it yesterday. Other than pain in her knees she has no other problems at this time Exam Vital signs and Labs for Last 24 Hours: Temp Pulse Resp BP Pulse Ox 99.1 F 76 22 125/65 96 08/21/17 04:00 08/21/17 04:00 08/21/17 04:00 08/21/17 04:00 08/21/17 04:00 Laboratory Results - last 24 hr 08/20/17 06:35: WBC 8.3 D, RBC 3.47 L, Hgb 11.0 L D, Hct 33.6 L, MCV 96.8, MCH 32.0 H, MCHC 33.1, RDW 12.5, Plt Count 205 D, MPV 8.5, Neut % (Auto) 80.0, Lymph % (Auto) 14.4, [place] % (Auto) 4.6, Eos % (Auto) 0.8, Baso % (Auto) 0.2, Neut # (Auto) 6.7, Lymph # (Auto) 1.2, [place] # (Auto) 0.4, Eos # (Auto) 0.1, Baso # (Auto) 0.0 08/20/17 06:35: Sodium 139, Potassium 3.4 L, Chloride 103, Carbon Dioxide 28, Anion Gap 11.4, BUN 25 H, Creatinine 1.23 H, Estimated Creat Clear 50, Estimated GFR 45 L, Est GFR ( Amer) 55 L, Glucose 132 H Vital Signs - 24 hr 08/20/17 07:42 08/20/17 09:37 08/20/17 10:11 Temperature 98.6 F 99.3 F Pulse Rate [Apical] 98 H 72 Pulse Rate [Right Brachial] Respiratory Rate 16 16 18 Blood Pressure [Right Arm] 109/57 152/99 02 Sat by Pulse Oximetry 97 97 94 L 08/20/17 12:00 08/20/17 14:00 08/20/17 16:00 Temperature 99.0 F 99.2 F 98.8 F Pulse Rate [Apical] 68 66 65 Pulse Rate [Right Brachial] Respiratory Rate 18 16 18 Blood Pressure [Right Arm] 124/64 126/61 127/67 02 Sat by Pulse Oximetry 94 L 95 97 08/20/17 20:00 08/20/17 21:20 08/20/17 21:30 Temperature 98.3 F Pulse Rate [Apical] 69 Pulse Rate [Right Brachial] Respiratory Rate 22 Blood Pressure [Right Arm] 121/64 02 Sat by Pulse Oximetry 95 94 L 94 L 08/20/17 22:00 08/21/17 00:00 08/21/17 02:00 Temperature 99.0 F 99.0 F 99.5 F Pulse Rate [Apical] Pulse Rate [Right Brachial] 79 79 86 Respiratory Rate 18 22 20 Blood Pressure [Right Arm] 125/68 132/70 117/65 02 Sat by Pulse Oximetry 94 L 100 96 08/21/17 04:00 Temperature 99.1 F Pulse Rate [Apical] Pulse Rate [Right Brachial] 76 Respiratory Rate 22 Blood Pressure [Right Arm] 125/65 02 Sat by Pulse Oximetry 96 I & O for Last 24 hours: Intake & Output 08/18/17 08/19/17 08/20/17 08/21/17 11:59 11:59 11:59 11:59 Intake Total 3513 / 3513 1331 / 1331 Output Total 870 / 870 2135 / 2135 Balance 2643 / 2643 -804 / -804 Weight 285 lb 0.006 oz 285 lb 285 lb 0.006 oz Narrative: She appears well. Lungs are clear. Heart has a regular rate and rhythm. Abdomen is soft and nontender. Assessment and Plan (1) Status post left knee replacement Current visit: Yes Status: Acute Category: Surgical Code(s): Z96.652 - Presence of left artificial knee joint (2) Hypertension Current visit: Yes Status: Acute Category: Medical Code(s): I10 - Essential (primary) hypertension (3) Hypothyroidism Current visit: Yes Status: Acute Category: Medical Code(s): E03.9 - Hypothyroidism, unspecified - Assessment and plan all Dx Assessment and Plan for all problems:: No change in medical care. Postop care per Dr. Wasserman
--- NOTE | 2017-08-21 07:22 | PC.NURSE ---
REPORT GIVEN TO Eduardo QUESADA W/C
--- NOTE | 2017-08-21 07:43 | PC.NURSE ---
report given to bryce amaya rn
--- NOTE | 2017-08-21 07:48 | PC.NURSE ---
9mg cleared from HEEL SANDER pump
--- NOTE | 2017-08-21 08:43 | PC.NURSE ---
Left message with SANDRA in Dr Wasserman's office to have him call me when he gets in regarding pt temp of 101.9.
--- NOTE | 2017-08-21 09:17 | XR_ITS ---
XR chest portable HISTORY: ITS.REASON: new fever, recent surgery with fever ORDERING PHYSICIAN: Major Wasserman MD PATIENT AGE: 56 years COMPARISON: 08/11/2017 FINDINGS: The cardiomediastinal silhouette and pulmonary vascularity are within normal limits. There are mild atelectatic changes in the left lung base laterally. Right hemidiaphragm is slightly elevated with mild vascular crowding on the right. No lobar consolidation or collapse is evident. IMPRESSION: Low lung volumes with mild left basilar atelectasis. No lobar consolidation or collapse
[2017-08-21 09:39] LABS: Adenovirus,PCR Not Detected (NotDetected); Bordetella Pertussis Not Detected (NotDetected); Chlamydophila Pneumoniae, PCR Not Detected (NotDetected); Coronavirus 229E Not Detected (NotDetected); Coronavirus NL63 Not Detected (NotDetected); Coronavirus OC43 Not Detected (NotDetected); Coronovirus HKU1,PCR Not Detected (NotDetected); Human Metapneumovirus Not Detected (NotDetected); Influenza A, PCR Not Detected (NotDetected); Influenza AH1, 2009 Not Detected (NotDetected); Influenza AH1, PCR Not Detected (NotDetected); Influenza AH3,PCR Not Detected (NotDetected); Influenza B, PCR Not Detected (NotDetected); Mycoplasma Pneumoniae, PCR Not Detected (NotDected); Parainfluenza 1, PCR Not Detected (NotDetected); Parainfluenza 2, PCR Not Detected (NotDetected); Parainfluenza 3, PCR Not Detected (NotDetected); Parainfluenza 4, PCR Not Detected (NotDetected); Respiratory Syncytial Virus Not Detected (NotDetected); Rhinovirus/Enterovirus Not Detected (NotDetected)
[2017-08-21 09:40] LABS: Basophils % 0.5 % (0.1-2.0); Eosinophils # 0.2 K/mm3 (0.0-0.4); Eosinophils % 3.5 % (0.1-12.0); Hematocrit 30.8 % (37.0-47.0); Hemoglobin 10.3 g/dL (12.2-16.2); Lymphocytes # 0.8 K/mm3 (0.7-4.5); Lymphocytes % 10.8 K/mm3 (10-50); Mean Corpuscular HGB Conc 33.6 g/dL (31.8-35.4); Mean Corpuscular Hemoglobin 32.4 pg (27.0-31.2); Mean Corpuscular Volume 96.4 fl (81-99); Mean Platelet Volume 8.9 fl (7.4-10.4); Monocytes # 0.3 K/mm3 (0.1-1.0); Monocytes % 4.7 % (1.7-9.3); Neutrophils # 5.5 K/mm3 (1.8-7.8); Neutrophils % 80.4 % (37.0-80.0); Platelet Count 161 K/mm3 (142-424); Red Blood Count 3.19 M/mm3 (4.20-5.40); Red Cell Distribution Width 12.5 % (11.5-17.5); White Blood Count 6.9 K/mm3 (4.8-10.8)
[2017-08-21 10:48] LABS: Appearance,Urine CLEAR (Clear); Bilirubin,Urine Negative (Negative); Blood, Urine Negative (Negative); Color,Urine YELLOW (Yellow); Glucose,Urine (UA) Negative (Negative); Ketones,Urine Negative (Negative); Leukocyte Esterase,Urine Negative (Negative); Microscopic, Urine URINE MICROSCOPIC (MICROSCOPIC); Nitrate,Urine Negative (Negative); Protein,Urine Negative (Negative); Urobilinogen,Urine 0.2 EU/dl (0.2)
[2017-08-21 11:15] LABS: Bacteria,Urine Trace /lpf
--- NOTE | 2017-08-21 11:19 | PC.NURSE ---
Dr Judd notified that pt spiked a temp of 101.9 orally. Chest xray, cbc, and pcr panel ordered. Tylenol administered per aug. Dr Wasserman returned call, UA ordered. Stated he will be up to the floor around 1100 to see pt.
--- NOTE | 2017-08-21 12:39 | HMH.ORTHPN ---
Subjective Date: 08/21/17 Time: 12:00 Principal diagnosis: Status post total knee arthroplasty, left Interval history: Patient is status post left total knee arthroplasty post op day #2. Patient is lying down in bed. Says she is not feeling well today and spiked a temperature this morning. She says she is feeling tired and drowsy. He reports moderate knee pain and says it's well-controlled with medication. No history of any nausea or vomiting. She reports that she had productive cough this morning. No history of any chest pain, shortness of breath or palpitations. She did not do any physical therapy for mobilization this morning as she is not feeling well. Following recommendation by Dr. Judd, she had chest x-ray, CBC and viral screening. Also I have recommended urine culture and sensitivity earlier in the morning. PN: Obj Ex Vital signs: Temp Pulse Resp BP Pulse Ox 97.4 F L 57 L 22 100/50 93 L 08/21/17 12:00 08/21/17 12:00 08/21/17 12:00 08/21/17 12:00 08/21/17 12:00 Narrative: Laboratory Results - last 24 hr 08/21/17 09:26: Chlamy pneumoniae PCR Not detected, Adenovirus (PCR) Not detected, B.parapertussis DNA PCR Not detected, Coronavirus OC43 (PCR) Not detected, Coronavirus HKU1 (PCR) Not detected, Coronavirus 229E (PCR) Not detected, Coronavirus NL63 (PCR) Not detected, Human Metapneumovir PCR Not detected, Influenza A (H1) PCR Not detected, Influ A (H1N1/09) PCR Not detected, Influenza A (H3) PCR Not detected, Influenza Type A (PCR) Not detected, Influenza Type B (PCR) Not detected, M. pneumoniae (PCR) Not detected, Parainfluenza 1 (PCR) Not detected, Parainfluenza 2 (PCR) Not detected, Parainfluenza 3 (PCR) Not detected, Parainfluenza 4 (PCR) Not detected, RSV (PCR) Not detected, Entero/Rhino (PCR) Not detected 08/21/17 09:30: WBC 6.9, RBC 3.19 L, Hgb 10.3 L, Hct 30.8 L, MCV 96.4, MCH 32.4 H, MCHC 33.6, RDW 12.5, Plt Count 161, MPV 8.9, Neut % (Auto) 80.4 H, Lymph % (Auto) 10.8, [place] % (Auto) 4.7, Eos % (Auto) 3.5, Baso % (Auto) 0.5, Neut # (Auto) 5.5, Lymph # (Auto) 0.8, [place] # (Auto) 0.3, Eos # (Auto) 0.2, Baso # (Auto) 0.0 08/21/17 10:30: Urine Color Yellow, Urine Appearance Clear, Urine pH 6.0, Ur Specific [place] 1.010, Urine Protein Negative, Urine Glucose (UA) Negative, Urine Ketones Negative, Urine Blood Negative, Urine Nitrate Negative, Urine Bilirubin Negative, Urine Urobilinogen 0.2, Ur Leukocyte Esterase Negative, Urine RBC None, Urine WBC None, Ur Squamous Epith Cells 3-5, Urine Bacteria Trace Intake & Output 08/21/17 08/21/17 08/21/17 03:59 11:59 19:59 Intake Total 290 / 290 Output Total 825 / 825 Balance -825 / -825 260 / 260 Intake: Intake, Oral Amount 240 / 240 Intake, Total IV Amount 50 / 50 Cefazolin Sodium 1 gm In 0.9 % 50 / 50 Sodium Chloride 50 ml @ 100 mls /hr IV Q6H [facility] Rx#:[id number] Output: Output, Urine Amount 800 / 800 Output, Drainage Amount / 30 Left Knee Other: Number of Voids 1 - Constitutional no acute distress - Routine HEENT Exam Head: Present: normocephalic Eye: Present: EOMI, PERRL - Routine Neck Exam Present: supple, full ROM, trachea midline - Routine Respiratory Exam Present: CTA bilaterally - Routine Cardiovascular Exam Present: RRR, Normal S1, Normal S2 - Routine Abdominal Exam Present: soft, normoactive bowel sounds - Routine Extremities Exam Present: edema, pulses intact Comments: On examination of the left knee, a knee immobilizer is in place. On examination out of the knee immobilizer, dressings are clean, dry and intact. I have changed the dressings and the incision appears clean, dry and healthy. There is no erythema or discharge. There is diffuse swelling and tenderness over the knee as to be expected. I have also removed the Hemovac drain under aseptic precautions and sent the drain tip for culture and sensitivity. Sterile dressings were applied.
--- NOTE | 2017-08-21 16:01 | PC.NURSE ---
Lungs clear, bowel sounds active x4. Pt had a temp in the am of 101.[address] Wasserman and Dr Judd notified and new orders received (see previous notes). Pt was given tylenol. Follow up temp was 98.9 orally with most recent temp being 97.4. She refused ambulating with physical therapy in the am. She did get up to the chair for approx 2hrs. She requested being put back to bed. Pt educated on benefits of staying up to chair, ambulating and using incentive spirometer to help prevent pneumonia and promote circulation. Pt verbalizes understanding. Will continue to monitor.
--- NOTE | 2017-08-21 18:44 | PC.NURSE ---
6 mg cleared out of BRIDGES SUPERVISOR Dressing to r knee is cdi.
--- NOTE | 2017-08-21 18:51 | PC.NURSE ---
Report to be given to Alisha Mathur RN
[2017-08-22] VITALS (7 sets, daily range): BP systolic 122–169; BP diastolic 50–76; PULSE 58–73; RESP 16–20; TEMP 36.6–37.3; O2SAT 91–98
--- NOTE | 2017-08-22 03:59 | PC.NURSE ---
PATIENT HAS RESTED ON AND OFF THIS SHIFT. SHE WAS ASSISTED TO BSC PER STAFF X1 AND DID WELL. SHE C/O PAIN AND SPASMS TO LEFT KNEE ON AND OFF. CAREER TRANSITION SPECIALIST IS IN USE, HOWEVER PATIENT DID RECEIVED ONE DOSE OF PRN TORADOL. DRESSING REMAINS CDI. PATIENT DID C/O HAVING COLD CHILLS ONCE THIS SHIFT. TEMP WAS TAKEN AT THAT TIME AND WAS 98.7 AND SHE HAS REMAINED AFEBRILE THROUGHOUT SHIFT. PATIENT IS CURRENTLY IN BED ASLEEP. NO OTHER PROBLEMS NOTED AT THIS TIME. VSS. WILL CONTINUE TO MONITOR. SAFETY MEASURES IN PLACE, CALL LIGHT IN REACH.
--- NOTE | 2017-08-22 06:46 | PC.NURSE ---
5.5 ML SHIFT TOTAL CLEARED FROM JACKSCREW MAN PUMP
--- NOTE | 2017-08-22 07:03 | HMH.ACPN2 ---
Internal Medicine - PN: Subj *Date: 08/22/17 *Time: 07:03 Interval history: Patient spiked a fever yesterday morning which led to a workup for postoperative infection. Patient's chest x-ray, CBC, urinalysis were all nonsupporting of a bacterial infection. Patient was encouraged to use her incentive spirometer. Dr. Wasserman evaluated her knee and did not feel like there is any sign of infection. Throughout the day patient states she continued to have what she thought were low-grade fever although review of vital signs shows normal temperatures. This morning she feels a little tired. Exam Vital signs and Labs for Last 24 Hours: Temp Pulse Resp BP Pulse Ox 98.6 F 73 20 169/76 93 L 08/22/17 06:00 08/22/17 06:00 08/22/17 06:00 08/22/17 06:00 08/22/17 06:00 Laboratory Results - last 24 hr 08/19/17 06:49: Crossmatch (AHG) See Detail 08/21/17 09:26: Chlamy pneumoniae PCR Not detected, Adenovirus (PCR) Not detected, B.parapertussis DNA PCR Not detected, Coronavirus OC43 (PCR) Not detected, Coronavirus HKU1 (PCR) Not detected, Coronavirus 229E (PCR) Not detected, Coronavirus NL63 (PCR) Not detected, Human Metapneumovir PCR Not detected, Influenza A (H1) PCR Not detected, Influ A (H1N1/09) PCR Not detected, Influenza A (H3) PCR Not detected, Influenza Type A (PCR) Not detected, Influenza Type B (PCR) Not detected, M. pneumoniae (PCR) Not detected, Parainfluenza 1 (PCR) Not detected, Parainfluenza 2 (PCR) Not detected, Parainfluenza 3 (PCR) Not detected, Parainfluenza 4 (PCR) Not detected, RSV (PCR) Not detected, Entero/Rhino (PCR) Not detected 08/21/17 09:30: WBC 6.9, RBC 3.19 L, Hgb 10.3 L, Hct 30.8 L, MCV 96.4, MCH 32.4 H, MCHC 33.6, RDW 12.5, Plt Count 161, MPV 8.9, Neut % (Auto) 80.4 H, Lymph % (Auto) 10.8, [place] % (Auto) 4.7, Eos % (Auto) 3.5, Baso % (Auto) 0.5, Neut # (Auto) 5.5, Lymph # (Auto) 0.8, [place] # (Auto) 0.3, Eos # (Auto) 0.2, Baso # (Auto) 0.0 08/21/17 10:30: Urine Color Yellow, Urine Appearance Clear, Urine pH 6.0, Ur Specific [place] 1.010, Urine Protein Negative, Urine Glucose (UA) Negative, Urine Ketones Negative, Urine Blood Negative, Urine Nitrate Negative, Urine Bilirubin Negative, Urine Urobilinogen 0.2, Ur Leukocyte Esterase Negative, Urine RBC None, Urine WBC None, Ur Squamous Epith Cells 3-5, Urine Bacteria Trace I & O for Last 24 hours: Intake & Output 08/19/17 08/20/17 08/21/17 08/22/17 11:59 11:59 11:59 11:59 Intake Total 3513 / 3513 1571 / 1571 883 / 883 Output Total 870 / 870 2165 / 2165 1100 / 1100 Balance 2643 / 2643 -594 / -594 -217 / -217 Weight 285 lb 0.006 oz 285 lb 285 lb 0.006 oz Narrative: She is awake and alert. She does not appear toxic. Oropharynx is moist and clear. Neck is without lymphadenopathy. Lungs are clear to auscultation. Heart has a regular rate and rhythm. Assessment and Plan (1) Status post left knee replacement Start date: 08/19/17 Current visit: Yes Status: Acute Category: Surgical Code(s): Z96.652 - Presence of left artificial knee joint (2) Hypertension Current visit: Yes Status: Acute Category: Medical Code(s): I10 - Essential (primary) hypertension (3) Hypothyroidism Current visit: Yes Status: Acute Category: Medical Code(s): E03.9 - Hypothyroidism, unspecified - Assessment and plan all Dx Assessment and Plan for all problems:: She is medically stable. CBC this evening is pending. Patient tells me Dr. Wasserman may discharge her today and I see no contraindication to that from a medical standpoint.
--- NOTE | 2017-08-22 07:06 | P.PN_ITS ---
Internal Medicine - PN: Subj *Date: 08/22/17 *Time: 07:03 Interval history: Patient spiked a fever yesterday morning which led to a workup for postoperative infection. Patient's chest x-ray, CBC, urinalysis were all nonsupporting of a bacterial infection. Patient was encouraged to use her incentive spirometer. Dr. Wasserman evaluated her knee and did not feel like there is any sign of infection. Throughout the day patient states she continued to have what she thought were low-grade fever although review of vital signs shows normal temperatures. This morning she feels a little tired. Exam Vital signs and Labs for Last 24 Hours: Temp Pulse Resp BP Pulse Ox 98.6 F 73 20 169/76 93 L 08/22/17 06:00 08/22/17 06:00 08/22/17 06:00 08/22/17 06:00 08/22/17 06:00 Laboratory Results - last 24 hr 08/19/17 06:49: Crossmatch (AHG) See Detail 08/21/17 09:26: Chlamy pneumoniae PCR Not detected, Adenovirus (PCR) Not detected, B.parapertussis DNA PCR Not detected, Coronavirus OC43 (PCR) Not detected, Coronavirus HKU1 (PCR) Not detected, Coronavirus 229E (PCR) Not detected, Coronavirus NL63 (PCR) Not detected, Human Metapneumovir PCR Not detected, Influenza A (H1) PCR Not detected, Influ A (H1N1/09) PCR Not detected , Influenza A (H3) PCR Not detected, Influenza Type A (PCR) Not detected, Influenza Type B (PCR) Not detected, M. pneumoniae (PCR) Not detected, Parainfluenza 1 (PCR) Not detected, Parainfluenza 2 (PCR) Not detected, Parainfluenza 3 (PCR) Not detected, Parainfluenza 4 (PCR) Not detected, RSV (PCR ) Not detected, Entero/Rhino (PCR) Not detected 08/21/17 09:30: WBC 6.9, RBC 3.19 L, Hgb 10.3 L, Hct 30.8 L, MCV 96.4, MCH 32.4 H, MCHC 33.6, RDW 12.5, Plt Count 161, MPV 8.9, Neut % (Auto) 80.4 H, Lymph % ( Auto) 10.8, [place] % (Auto) 4.7, Eos % (Auto) 3.5, Baso % (Auto) 0.5, Neut # (Auto ) 5.5, Lymph # (Auto) 0.8, [place] # (Auto) 0.3, Eos # (Auto) 0.2, Baso # (Auto) 0.0 08/21/17 10:30: Urine Color Yellow, Urine Appearance Clear, Urine pH 6.0, Ur Specific [place] 1.010, Urine Protein Negative, Urine Glucose (UA) Negative, Urine Ketones Negative, Urine Blood Negative, Urine Nitrate Negative, Urine Bilirubin Negative, Urine Urobilinogen 0.2, Ur Leukocyte Esterase Negative, Urine RBC None, Urine WBC None, Ur Squamous Epith Cells 3-5, Urine Bacteria Trace I & O for Last 24 hours: Intake & Output 08/19/17 08/20/17 08/21/17 08/22/17 11:59 11:59 11:59 11:59 Intake Total 3513 / 3513 1571 / 1571 883 / 883 Output Total 870 / 870 2165 / 2165 1100 / 1100 Balance 2643 / 2643 -594 / -594 -217 / -217 Weight 285 lb 0.006 oz 285 lb 285 lb 0.006 oz Narrative: She is awake and alert. She does not appear toxic. Oropharynx is moist and clear. Neck is without lymphadenopathy. Lungs are clear to auscultation. Heart has a regular rate and rhythm. Assessment and Plan (1) Status post left knee replacement Start date: 08/19/17 Current visit: Yes Status: Acute Category: Surgical Code(s): Z96.652 - Presence of left artificial knee joint (2) Hypertension Current visit: Yes Status: Acute Category: Medical Code(s): I10 - Essential (primary) hypertension (3) Hypothyroidism Current visit: Yes Status: Acute Category: Medical Code(s): E03.9 - Hypothyroidism, unspecified - Assessment and plan all Dx Assessment and Plan for all problems:: She is medically stable. CBC this evening is pending. Patient tells me Dr. Wasserman may discharge her today and I see no contraindication to that from a medical standpoint.
--- NOTE | 2017-08-22 07:13 | PC.NURSE ---
REPORT GIVEN TO Reanna CUENCA W/C
[2017-08-22 07:17] LABS: Basophils % 0.3 % (0.1-2.0); Eosinophils # 0.4 K/mm3 (0.0-0.4); Eosinophils % 8.3 % (0.1-12.0); Hemoglobin 9.6 g/dL (12.2-16.2); Lymphocytes # 0.9 K/mm3 (0.7-4.5); Lymphocytes % 16.5 K/mm3 (10-50); Mean Corpuscular HGB Conc 33.2 g/dL (31.8-35.4); Mean Corpuscular Hemoglobin 32.3 pg (27.0-31.2); Mean Corpuscular Volume 97.4 fl (81-99); Mean Platelet Volume 8.3 fl (7.4-10.4); Monocytes # 0.3 K/mm3 (0.1-1.0); Monocytes % 5.2 % (1.7-9.3); Neutrophils # 3.7 K/mm3 (1.8-7.8); Neutrophils % 69.6 % (37.0-80.0); Platelet Count 157 K/mm3 (142-424); Red Blood Count 2.98 M/mm3 (4.20-5.40); Red Cell Distribution Width 12.5 % (11.5-17.5); White Blood Count 5.3 K/mm3 (4.8-10.8)
--- NOTE | 2017-08-22 09:36 | P.PN_ITS ---
Internal Medicine - PN: Subj *Date: 08/22/17 *Time: 09:36 Exam Vital signs and Labs for Last 24 Hours: Temp Pulse Resp BP Pulse Ox 99.1 F 71 16 142/58 92 L 08/22/17 08:00 08/22/17 08:00 08/22/17 08:00 08/22/17 08:00 08/22/17 08:00 Laboratory Results - last 24 hr 08/19/17 06:49: Crossmatch (AHG) See Detail 08/21/17 09:26: Chlamy pneumoniae PCR Not detected, Adenovirus (PCR) Not detected, B.parapertussis DNA PCR Not detected, Coronavirus OC43 (PCR) Not detected, Coronavirus HKU1 (PCR) Not detected, Coronavirus 229E (PCR) Not detected, Coronavirus NL63 (PCR) Not detected, Human Metapneumovir PCR Not detected, Influenza A (H1) PCR Not detected, Influ A (H1N1/09) PCR Not detected , Influenza A (H3) PCR Not detected, Influenza Type A (PCR) Not detected, Influenza Type B (PCR) Not detected, M. pneumoniae (PCR) Not detected, Parainfluenza 1 (PCR) Not detected, Parainfluenza 2 (PCR) Not detected, Parainfluenza 3 (PCR) Not detected, Parainfluenza 4 (PCR) Not detected, RSV (PCR ) Not detected, Entero/Rhino (PCR) Not detected 08/21/17 09:30: WBC 6.9, RBC 3.19 L, Hgb 10.3 L, Hct 30.8 L, MCV 96.4, MCH 32.4 H, MCHC 33.6, RDW 12.5, Plt Count 161, MPV 8.9, Neut % (Auto) 80.4 H, Lymph % ( Auto) 10.8, [place] % (Auto) 4.7, Eos % (Auto) 3.5, Baso % (Auto) 0.5, Neut # (Auto ) 5.5, Lymph # (Auto) 0.8, [place] # (Auto) 0.3, Eos # (Auto) 0.2, Baso # (Auto) 0.0 08/21/17 10:30: Urine Color Yellow, Urine Appearance Clear, Urine pH 6.0, Ur Specific [place] 1.010, Urine Protein Negative, Urine Glucose (UA) Negative, Urine Ketones Negative, Urine Blood Negative, Urine Nitrate Negative, Urine Bilirubin Negative, Urine Urobilinogen 0.2, Ur Leukocyte Esterase Negative, Urine RBC None, Urine WBC None, Ur Squamous Epith Cells 3-5, Urine Bacteria Trace 08/22/17 06:30: WBC 5.3, RBC 2.98 L, Hgb 9.6 L, Hct 29.0 L, MCV 97.4, MCH 32.3 H , MCHC 33.2, RDW 12.5, Plt Count 157, MPV 8.3, Neut % (Auto) 69.6, Lymph % (Auto ) 16.5, [place] % (Auto) 5.2, Eos % (Auto) 8.3, Baso % (Auto) 0.3, Neut # (Auto) 3.7, Lymph # (Auto) 0.9, [place] # (Auto) 0.3, Eos # (Auto) 0.4, Baso # (Auto) 0.0 I & O for Last 24 hours: Intake & Output 08/19/17 08/20/17 08/21/17 08/22/17 23:59 23:59 23:59 23:59 Intake Total 2110 / 2110 2684 / 2684 890 / 890 523 / 523 Output Total 120 / 120 2059 / 0 1954 / 1954 Balance 1989 624 / 624 -1065 / -1065 523 / 523 Weight 129.274 kg 129.274 kg Assessment and Plan (1) Status post left knee replacement Start date: 08/19/17 Current visit: Yes Status: Acute Category: Surgical Code(s): Z96.652 - Presence of left artificial knee joint (2) Hypertension Current visit: Yes Status: Acute Category: Medical Code(s): I10 - Essential (primary) hypertension (3) Hypothyroidism Current visit: Yes Status: Acute Category: Medical Code(s): E03.9 - Hypothyroidism, unspecified The patient's infection will respond to the chosen ABx?: Yes Is the patient receiving the right drug, dose, and route?: Yes Could a more targeted ABx be ordered?: No
--- NOTE | 2017-08-22 15:24 | HMH.DCSUM ---
General - General Admission date: 08/19/17 Discharge date: 08/22/17 HPI HPI: Patient is a 56-year-old female with advanced degenerative joint disease of the left knee who is admitted to the hospital electively following an uncomplicated primary left total knee arthroplasty on 08/19/2017. She has not responded well to conservative options including NSAID, Tylenol, and interarticular injections and arthroscopic surgery for her knee osteoarthritis. She is using assistive walking devices. Total knee arthroplasty is indicated to reduce the risk of falls, improve her pain and mobility and quality of life. The surgical and nonsurgical alternatives were discussed in detail with the patient as well as the risks and benefits of the surgery. She has a history of hypothyroidism, swelling of the lower extremities as well as morbid obesity. Objective Vital signs: Temp Pulse Resp BP Pulse Ox 99.1 F 71 16 142/58 98 08/22/17 08:00 08/22/17 08:00 08/22/17 08:00 08/22/17 08:00 08/22/17 09:00 no acute distress, morbidly obese, cooperative - *Routine HEENT Exam Head: Present: normocephalic, atraumatic Eye: Present: EOMI, PERRL - *Routine Neck Exam Present: supple, full ROM, tracheal deviation - *Routine Respiratory Exam Present: CTA bilaterally - *Routine Cardiovascular Exam Present: RRR, Normal S1, Normal S2 - *Routine Abdominal Exam Present: soft, normoactive bowel sounds - *Routine Extremities Exam Present: normal capillary refill Comments: On examination of the left knee, a knee immobilizer is in place. On examination out of the knee immobilizer, dressings are clean, dry and intact. I have changed the dressings and the incision appears clean, dry and healthy. There is no erythema or discharge. There is diffuse swelling and tenderness over the knee as to be expected. Sterile dressings were applied. Knee range of motion is 5-90? of flexion. Distal pulses are 2+. Capillary refill is brisk. Sensation is intact to light touch throughout. Thigh and calf are soft and there is mild tenderness over the distal thigh. There is also 1+ edema of the left leg, ankle and foot. She demonstrates good range of foot and ankle movements. The quadriceps tendon is actively yann. She is not able to actively straight leg raise. - *Routine Skin Exam Present: intact, normal turgor - *Routine Neurological Exam Present: alert, oriented X3, CN II-XII intact, moving all extremities, vision grossly intact, hearing grossly intact - Routine Psychiatric Exam Present: normal affect, normal thought process, cooperative, good judgment Hospital Course Hospital Course: Patient underwent an uncomplicated straightforward primary left total knee arthroplasty on 08/19/2017. Following surgery patient progressed well without any complications. Her postoperative check x-ray was satisfactory with good alignment and fixation of the components. On postoperative day 2 she spiked a 101.5 temperature appropriate screening revealed no infective focus. She responded well to symptomatic treatment and has been apyrexial for more than 24 hours prior to discharge. She progressed rapidly with physical therapy and was able to mobilize using a walker. At the time of discharge she still has not regained good quadriceps control and was advised to mobilize with the knee immobilizer until she fully regains quadriceps control and is able to actively straight leg raise. Her pain is well controlled with as needed oral Percocet. The dressings were changed on the second postoperative day and also at the time of discharge and the wound is healthy and healing well. No signs of any erythema, induration or discharge. Patient was started on Xarelto 10 mg daily for DVT for prophylaxis after surgery. Her neurovascular status in both lower extremities is intact. Pedal pulses 2+ bilaterally and fully sensate distally. No clinical evidence of DVT noted. Patient was cl
--- NOTE | 2017-08-22 15:24 | SW/DCPLANNER ---
RECEIVED REFERRAL FOR HOME HEALTH PT FOR THIS PATIENT: I SPOKE WITH PATIENT AND SHE STATED SHE THOUGHT SHE COULD BENEFIT FROM SOME HOME HEALTH AND I GOT AN ORDER AND SET UP WITH [facility] PER PATIENT CHOICE.. SHE IS GOING TO DISCHARGE HOME LATER TODAY AND SERVICES TO START ON FRIDAY.. I HAVE ASKED THEM TO CALL HER AND LET HER KNOW WHEN THEY WOULD BE THERE....
--- NOTE | 2017-08-22 15:44 | DIET.NUTRFU ---
Pt with hx of gastric bypass. She is on regular diet and po intakes avg 56% x 4 meals. Pt reports we are meeting her nutritional needs with current diet. She eats small meals but usually eats only 3 meals a day. No nutritional concerns.
[2017-08-28 15:04] LABS: POC Glucose,Bedside 116 mg/dL (70-110)
== END 2017-08-22 16:56 | disposition home health service (06) | DRG 470 ==
PROVIDERS: Admitting Provider Orthopaedic Surgery; Family Provider Family Medicine; PCP Nurse Practitioner; Visit Provider Orthopaedic Surgery
PROC: 0SRD0J9 Replacement of Left Knee Joint with Synthetic Substitute, Cemented, Open Approach (ICD-10-PCS; CPT 27447; principal; 2017-08-19 07:30)
DX: E03.9 Hypothyroidism, unspecified (principal); I10 Essential (primary) hypertension; M17.12 Unilateral primary osteoarthritis, left knee
CPT/HCPCS: 27447; 36415; 71045; 73562; 80048; 81001; 82962; 85025; 85651; 86140; 86850; 87486; 87581; 87633; 87798; 94761; 96374; 97110; 97116; 97161; C1765; C1776; J2405

== ENCOUNTER → 2017-09-04 10:33 | Outpatient (CLI) | payer MEDICAID, SELFPAY ==
--- NOTE | 2017-09-04 10:35 | XR_ITS ---
XR knee LT 2V HISTORY: Follow-up total knee replacement ITS.REASON: post operative LEFT TKA ORDERING PHYSICIAN: Major Wasserman MD PATIENT AGE: 56 years COMPARISON: 09/16/2017 FINDINGS: Status post total knee arthroplasty. Good alignment. No evidence of orthopedic complications. Skin clips remain in place. There is sclerosis of the lateral tibial plateau consistent with previous subchondral plasty. IMPRESSION: No change status post total knee arthroplasty with good alignment
== END ==
PROVIDERS: PCP Family Medicine; Visit Provider Orthopaedic Surgery
DX: Z48.89 Encounter for other specified surgical aftercare (principal)
CPT/HCPCS: 73560

== ENCOUNTER → 2017-11-12 11:20 | Outpatient (CLI) | payer MEDICAID, SELFPAY ==
--- NOTE | 2017-11-12 11:23 | XR_ITS ---
XR knee LT 2V HISTORY: Follow-up filming arthroplasty ITS.REASON: s/p LT TKA dos 08/19/17 ORDERING PHYSICIAN: Major Wasserman MD PATIENT AGE: 56 years COMPARISON: 09/04/2017 FINDINGS: Status post total knee arthroplasty with good alignment of the prosthesis and no evidence of orthopedic complication. IMPRESSION: Unremarkable status post left knee arthroplasty
== END ==
PROVIDERS: PCP Family Medicine; Visit Provider Orthopaedic Surgery
DX: Z96.652 Presence of left artificial knee joint (principal)
CPT/HCPCS: 73560

== ENCOUNTER 2017-11-13 08:30 | Outpatient (RCR) | payer MEDICAID, SELFPAY ==
--- NOTE | 2017-11-06 16:39 | HMH.PTOPEV ---
PT Outpatient Evaluation Rehab OP Evaluation Start: 11/06/17 16:31 Freq: Status: Active Protocol: Document 11/06/17 16:31 [email or web address] (Rec: 11/06/17 16:38 IRENE [id number]) Electronically Signed By Nathan Schwartz PT 11/06/17 16:31 Outpatient Therapy Subjective History Subjective History This is the initial Physical Therapy evaluation for Sue Wood. Pt is a 56 y/o female referred to PT s/p L TKA. Pt had sx 08/19/17. Pt had multiple HHPT visits. Chief Complaint Pain Stiff Weakness Symptom Type Ache Throb Sharp Symptoms Relieved By Rest/Positioning Symptoms Aggravated By Physical Activity Walking Current Functional Limitations Standing Squatting Recreation Activity Walking Stairs Symptom Description Constant but Variable Level of pain today (0-10) 2 Pain scale - at its best (0-10) 2 Pain scale - at its worst (0-10) 9 Hip/Knee Eval Gait Observation General Gait Pattern Observation Antalgic Gait Assistive Device Assistive Devices Straight Cane MMT left Knee Extension Strength Grade 4 Good Knee Flexion Strength Grade 4 Good right Knee Extension Strength Grade 5 Normal Knee Flexion Strength Grade 5 Normal ROM left Knee Extension Active Range of Motion ( 0 degrees) Knee Flexion Active Range of Motion ( 115 degrees) right Knee Extension Active Range of Motion ( 0 degrees) Knee Flexion Active Range of Motion ( 125 degrees) Outpatient Therapy Assessment Impairments Problems/Impairmments Impaired Range of Motion Impaired Strength Impaired Endurance Impaired Gait Pattern Impaired Walking Impaired Standing Impaired Household Care Impaired Stair Climbing Impaired Squatting Impaired Recreational Activities Subjective C/O Pain Impaired Self Care/Self Management Prognosis Rehab Potential
== END 2017-11-13 08:31 | disposition home or self-care (01) ==
LOC: PT 08:30
PROVIDERS: Family Provider Family Medicine; PCP Family Medicine; Visit Provider Orthopaedic Surgery
DX: Z96.652 Presence of left artificial knee joint (principal)
CPT/HCPCS: 97010; 97014; 97110; 97163; G0283

== ENCOUNTER → 2018-02-27 09:45 | Outpatient (CLI) | payer MEDICAID, SELFPAY ==
--- NOTE | 2018-02-27 09:47 | MR_ITS ---
MR lumbar spine wo con Ordering Physician: Gabby London Patient Age: 57 years: Female HISTORY: ITS.REASON: LUMBAGO OF MULTIPLE SITES Low back pain bilateral pain numbness tingling down legs to feet. Symptoms 2 months. No trauma. No surgery TECHNIQUE: Sagittal STIR, T1, T2, axial T1 and T2. On 1.5T Siemens wide bore MRI. 3-D MR myelogram image set obtained & performed on MRI workstation. Additional sagittal thin section T2 weighted dataset obtained from this latter acquisition as well (---76 CPT) COMPARISON :July 29, 2016 MRI lumbar Plain films lumbar spine July 19, 2016 FINDINGS Levoscoliosis again noted. Roughly Up to 20 degree levoscoliosis on this nonstanding study with this there is disc space more pronounced at the inner curvature and right aspect of the L2/3, L3/4 disc levels L5/S1. Disc space fairly well maintained but There is 3.5 mm Grade 1 degenerative anterolisthesis of L5 on S1, this mild listhesis become slightly more pronounced to the left. Prominent facet hypertrophy bilaterally. Minor disc bulge most evident to the left. These features yield moderate/generous Left Foraminal encroachment . L4/5. Only mild degenerative disc space narrowing.. Again minimal 2.5 mm grade 1 degenerative anterolisthesis noted. Diffuse disc bulge with additional disc protrusion just right of midline extending cephalad & indenting thecal sac.. This along with a very prominent exuberant facet hypertrophy yields prominent central canal stenosis at this level. Pronounced Bilateral foraminal encroachment at this level also observed due to both the disc bulge and exuberant facet/ligament flavum hypertrophy. . L3/4. disc space narrowing most pronounced rightward, reflecting levoscoliosis. Eccentric disc bulge to the right indents thecal sac to right and encroach upon right foramen. The levoscoliosis also decreases the height of the right foramen. Together features yield generous right foraminal stenosis, encroachment.. Moderate central canal stenosis L2/3 disc space narrowing most pronounced rightward, reflecting levoscoliosis. Diffuse disc bulge slightly more evident to the right bilateral foraminal disc bulge and mild central canal stenosis. L1/L2, T12/L1 disc intact. T11/12 disc intact. No foramen widely patent at these levels. There is mild old superior endplate compression T11 with prominent Schmorl's node superior aspect. Stable appearance. 3-D MRI myelogram image set nicely demonstrates the multilevel spinal stenosis with findings similar to the previous 2017 study. On only question slight progressive spinal stenosis at L4/5. Less pronounced spinal stenosis L3/4 and mild narrowing spinal canal narrowing at L2/3. Levoscoliosis again noted along on the sequence along with the generous fluid at the L4/5 facets bilaterally IMPRESSION Levoscoliosis with multilevel degenerative changes similar to previous study. No prominent findings. L4/5. Fairly pronounced spinal stenosis due to prominent exuberant facet arthropathy and hypertrophy.. Mild listhesis & mild disc bulge also contribute to the spinal stenosis and bilateral foraminal encroachment most pronounced at this level bilaterally. (Spinal stenosis is similar to perhaps incrementally more pronounced L4/5 versus 2017 MR) L3/4. Moderate central canal stenosis with rightward foraminal encroachment. . L2/3. Mild/moderate central canal stenosis, with mild bilateral foraminal encroachment
== END ==
PROVIDERS: Family Provider Family Medicine; PCP Family Medicine; Visit Provider Nurse Practitioner
DX: M54.42 Lumbago with sciatica, left side; M54.40 Lumbago with sciatica, unspecified side
CPT/HCPCS: 72148; 76376

== ENCOUNTER 2018-03-06 13:00 | Outpatient (RCR) | payer MEDICAID, SELFPAY ==
--- NOTE | 2017-12-26 10:53 | HMH.PTOPEV ---
PT Outpatient Evaluation Rehab PT Outpatient Evaluation Start: 12/26/17 10:29 Freq: Status: Active Protocol: Document 12/26/17 10:29 RU (Rec: 12/26/17 10:52 RU [id number]) Electronically Signed By Slade Mckinnon, PT 12/26/17 10:29 Outpatient Therapy Subjective History Subjective History Pt reports h/o chronic LBP over the last 2-3yrs, however, reports most recent exacerbation began insidiously around 12/01/17. Pt reports L sided LBP with radicular s/s from L glut mm area to L foot/ ankle at its worst. pt reports recent L TKA (August), which (LBP) interfered with TKA rehab. Chief Complaint Pain Spasms Stiff Paresthesia Weakness Symptom Type Ache Throb Sharp Dull Stabbing Burning Numbness Tingling Shooting Symptoms Relieved By Rest/Positioning Ice Prescription Meds Symptoms Aggravated By Standing Bending/Stooping Physical Activity Twisting Walking Lifting Prior Functional Limitations Lifting Housework Standing Sitting Walking Current Functional Limitations Reaching Lifting Standing Sitting Walking Bending/Stooping Symptom Description Constant but Variable Level of pain today (0-10) 4 Pain scale - at its best (0-10) 3 Pain scale - at its worst (0-10) 9 Lumbopelvic Eval Posture Thoracic Spine Posture Standing Position Flattened Lumbar Spine Posture Standing Position Flattened Assistive device Assistive Devices Straight Cane Gait Observation General Gait Pattern Observation Antalgic Gait Palapation tenderness right thoracic spinal tenderness Yes:
--- NOTE | 2018-02-04 14:47 | HMH.RHREAS ---
Rehab Reassessment Rehab OP Re-assessment Start: 02/04/18 14:42 Freq: Status: Active Protocol: Document 02/04/18 14:42 RU (Rec: 02/04/18 14:47 RU [id number]) Electronically Signed By Slade Mckinnon, PT 02/04/18 14:42 Rehab Re-assessment Subjective Subjective PT REPORTS 6-7/10 LBP ON VAS, AND FEELS 25% BETTER SINCE I EVAL Objective Objective Notes AROM L-SPINE FLX 0-20, EXT 0- 10, R SB 0-10, L SB 0-5 MMT: L HIP FLX 4/5, ALL OTHER 4+-5/5 B LE TTP: L LUMBAR PARASPINALS 3/4, L PIRIFORMIS 3/4, R LUMBAR PARA. 2/4 Assessment Progress Assessment Slower Than Expected Patient goals met STG'S 09/05 Goals Not Met STGS 12/06, LTG'S 04/08 Plan Plan PT TO CONT. W/SKILLED P.T. TO MAKE FURTHER IMPROVEMENTS W/ ROM, STRENGTH, AND TTP TO ALLOW FOR OPTIMAL FUNCTION Frequency of Therapy 2X/WK Duration of therapy 2-4 WEEKS Time and Billing Re-Eval Time 15 Re-Eval Billing Units 1 PHYSICIAN CERTIFICATION: I certify the specified therapy services for Sue Wood are required, authorized, and reviewed every 30 days.
== END 2018-03-06 13:01 | disposition home or self-care (01) ==
LOC: PT 13:00
PROVIDERS: Family Provider Family Medicine; PCP Family Medicine; Visit Provider Nurse Practitioner
DX: M54.42 Lumbago with sciatica, left side (principal)
CPT/HCPCS: 97010; 97012; 97014; 97035; 97110; 97163; 97164; G0283

== ENCOUNTER → 2018-05-04 10:53 | Outpatient (CLI) | payer MEDICAID, SELFPAY ==
--- NOTE | 2018-05-04 10:58 | XR_ITS ---
XR DEXA axial skeleton HISTORY: ITS.REASON: POST MENOPAUSAL ORDERING PHYSICIAN: Raisa Perla PATIENT AGE: 57 years COMPARISON: None FINDINGS: The BMD measured at the Total Left femoral neck is 0.715 g/cm squared with a T score of -2.3. This is considered Osteopenic according to the World Health Organization criteria. Fracture risk is Moderate. Treatment is advised. L1 L4 density has T score of -1.7. IMPRESSION: Osteopenia with moderate fracture risk. Suggest treatment and follow-up exams April 2020
== END ==
PROVIDERS: PCP Nurse Practitioner; Visit Provider Physician Assistant Medical
DX: Z78.0 Asymptomatic menopausal state (principal)
CPT/HCPCS: 77080

== ENCOUNTER 2018-05-13 14:03 | Outpatient (RCR) | payer MEDICAID, SELFPAY | END 2018-05-13 14:05 | disposition home or self-care (01) | LOC: PT 14:03 | PROVIDERS: Visit Provider Physician Assistant Medical | DX: M43.16 Spondylolisthesis, lumbar region (principal); M41.9 Scoliosis, unspecified ==

== ENCOUNTER → 2018-06-10 14:30 | Outpatient (CLI) | payer MEDICAID, SELFPAY ==
--- NOTE | 2018-06-10 14:42 | XR_ITS ---
EXAM: XR lumbar spine min 4V HISTORY: ITS.REASON: LBP MULTIPLE SITES ORDERING PHYSICIAN: Gabby London PATIENT AGE: 57 years COMPARISON: None FINDINGS: There is mild lumbar scoliosis convex left which measures 13 degrees. Degenerative disc disease is present at L2-L3, L3-L4, L4-L5, and L5-S1. There is 5 mm anterolisthesis of L4 on L5. No fracture or dislocation. No lytic or blastic change. IMPRESSION: Mild levoscoliosis with multilevel degenerative disc disease
--- NOTE | 2018-06-10 14:42 | XR_ITS ---
XR hip RT 2-3V w/pelvis HISTORY: Right hip pain ITS.REASON: LBP MULTIPLE SITES ORDERING PHYSICIAN: Gabby London PATIENT AGE: 57 years COMPARISON: 07/19/2016 FINDINGS: No fracture or dislocation is evident. No significant degenerative change. No lytic or blastic change. Unremarkable soft tissues. Mild osteoarthritic changes are present at the SI joints on both sides IMPRESSION: Negative hips. Mild osteoarthritic changes of the SI joints
== END ==
PROVIDERS: PCP Nurse Practitioner; Visit Provider Nurse Practitioner
DX: M54.5 Low back pain (principal)
CPT/HCPCS: 72110; 73502

== ENCOUNTER → 2018-07-24 13:56 | Outpatient (CLI) | payer MEDICAID, SELFPAY ==
--- NOTE | 2018-07-24 14:03 | CT_ITS ---
CT sinus wo con CLINICAL INDICATION: Facial pressure and pain ITS.REASON: FRONTAL SINUS PAIN, FACIAL INJURY ORDERING PHYSICIAN: Gabby London PATIENT AGE: 57 years COMPARISON: None TECHNIQUE:Axial images obtained with sagittal and coronal reformats. All CT scans at the facility use one or more dose reduction, viz: automated exposure control, ma/kV adjustment per patient size (including targeted exams where dose is matched to indication, i.e. head), or iterative reconstruction technique. FINDINGS: No sinus air-fluid level. No significant mucosal thickening or sinus mass. The ostiomeatal units are patent. There is mild leftward nasal septal deviation with a small septal spur projecting toward the left. The temporomandibular joints have an unremarkable appearance. Scattered small lymph nodes are present in the neck. The globes have an unremarkable appearance.. Incidental note made of degenerative disc disease with reversal lordosis at the C5-C6 level. IMPRESSION: 1. No evidence of sinusitis. 2. Mild leftward nasal septal deviation with small septal spur projecting toward the left
== END ==
PROVIDERS: PCP Nurse Practitioner; Visit Provider Nurse Practitioner
DX: J34.89 Other specified disorders of nose and nasal sinuses (principal); S09.93XD Unspecified injury of face, subsequent encounter; R31.9 Hematuria, unspecified
CPT/HCPCS: 70486

== ENCOUNTER → 2018-08-05 15:29 | Outpatient (CLI) | payer MEDICAID, SELFPAY ==
--- NOTE | 2018-08-05 15:36 | XR_ITS ---
XR knee LT 2V HISTORY: Follow-up knee replacement ITS.REASON: status post left knee arthroplasty DOS 08/19/17 ORDERING PHYSICIAN: Major Wasserman MD PATIENT AGE: 57 years COMPARISON: None FINDINGS: Status post total knee arthroplasty with good alignment. The orthopedic complications. IMPRESSION: Good alignment status post total knee arthroplasty unchanged
--- NOTE | 2018-08-05 15:37 | XR_ITS ---
XR chest 2V HISTORY: ITS.REASON: BRONCHITIS ORDERING PHYSICIAN: Major Wasserman MD PATIENT AGE: 57 years COMPARISON: None FINDINGS: The cardiomediastinal silhouette and pulmonary vascularity are within normal limits. The lungs are clear without infiltrates, suspicious nodules, or pleural effusions. There is mild lower thoracic scoliosis convex right No acute bony abnormalities. IMPRESSION: No acute finding
== END ==
PROVIDERS: PCP Nurse Practitioner; Visit Provider Orthopaedic Surgery
DX: Z96.652 Presence of left artificial knee joint (principal); J40 Bronchitis, not specified as acute or chronic
CPT/HCPCS: 71046; 73560

== ENCOUNTER → 2018-09-15 09:44 | Outpatient (POV) | payer MEDICAID, SELFPAY | PROVIDERS: Visit Provider Otolaryngology | DX: Z00.00 Encounter for general adult medical examination without abnormal findings (principal) ==

== ENCOUNTER → 2018-09-29 08:44 | Outpatient (POV) | payer MEDICAID, SELFPAY | PROVIDERS: Visit Provider Otolaryngology | DX: Z00.00 Encounter for general adult medical examination without abnormal findings (principal) ==

== ENCOUNTER → 2018-10-13 11:28 | Outpatient (POV) | payer MEDICAID, SELFPAY | PROVIDERS: Visit Provider Otolaryngology | DX: Z00.00 Encounter for general adult medical examination without abnormal findings (principal) ==

== ENCOUNTER → 2018-12-01 10:48 | Outpatient (POV) | payer MEDICAID, SELFPAY | PROVIDERS: Visit Provider Otolaryngology | DX: Z00.00 Encounter for general adult medical examination without abnormal findings (principal) ==

== ENCOUNTER → 2018-12-16 16:29 | Outpatient (CLI) | payer MEDICAID, SELFPAY ==
--- NOTE | 2018-12-16 16:34 | XR_ITS ---
XR knee LT 2V HISTORY: Follow-up total knee replacement ITS.REASON: 1 year status post LT tka ORDERING PHYSICIAN: Major Wasserman MD PATIENT AGE: 58 years COMPARISON: 08/05/2018 FINDINGS: Status post total replacement with good alignment. There is mild valgus angulation at the knee. On the patellar view the knee joint space is slightly widened medially. There are no previous exams performed with weightbearing. Osteosclerosis is present along the proximal lateral aspect of the tibia is not significant changed. IMPRESSION: Status post total replacement with good alignment of the prosthesis. There is mild valgus angulation at the knee and mild prominence of the medial aspect of the patellofemoral joint space
--- NOTE | 2018-12-16 16:34 | XR_ITS ---
XR knee RT 4V HISTORY: Right knee pain ITS.REASON: right knee osteoarthritis ORDERING PHYSICIAN: Major Wasserman MD PATIENT AGE: 58 years COMPARISON: None FINDINGS: Moderate osteoarthritic changes involving the medial compartment and patellofemoral joint. No fracture or dislocation. No lytic or blastic change. Small periarticular calcification noted medially. IMPRESSION: Moderate osteoarthritis
== END ==
PROVIDERS: PCP Nurse Practitioner; Visit Provider Orthopaedic Surgery
DX: M17.11 Unilateral primary osteoarthritis, right knee (principal); Z96.652 Presence of left artificial knee joint
CPT/HCPCS: 73560; 73564

== ENCOUNTER → 2019-01-05 09:58 | Outpatient (CLI) | payer MEDICAID, SELFPAY ==
--- NOTE | 2019-01-05 10:01 | MM_ITS ---
MM Dig screening mamm BI w/CAD CAD Screening COMPARISON: None, this is baseline INDICATION: There is no personal or family history of breast cancer TECHNIQUE: Standard CC and MLO images were obtained. R2 CAD reviewed. FINDINGS: The breasts are composed primarily of fat with minimal scattered fiber glandular densities in each breast. There is no suspicious lesion and no suspicious microcalcifications. There are small fatty replaced nodes in both axilla. IMPRESSION: Fatty type breast parenchyma with no suspicious lesion seen BI-RADS Category: 1 Negative RECOMMENDED FOLLOW-UP: 1YR - 1 YEAR FOLLOW-UP (A letter has been sent to the patient regarding results of the study.)
== END ==
PROVIDERS: PCP Nurse Practitioner; Referring Provider Nurse Practitioner; Visit Provider Nurse Practitioner
DX: Z12.31 Encounter for screening mammogram for malignant neoplasm of breast (principal)
CPT/HCPCS: 77067

== ENCOUNTER → 2019-02-17 14:08 | Outpatient (CLI) | payer MEDICARE, MEDICAID, SELFPAY ==
--- NOTE | 2019-02-17 14:15 | XR_ITS ---
PROCEDURE: XR KNEE LT 2V CLINICAL INDICATION: sp LT total knee arthroplasty Follow-up surgery COMPARISON: from 12/16/2018 FINDINGS: Status post total knee arthroplasty. There is good alignment. No fracture or dislocation is evident. There is some nonspecific lucency at the base of the tibial prosthesis not significantly changed. Sclerosis is present long the proximal aspect of the laterally and medially nonspecific and not significantly changed. IMPRESSION: Good alignment status post total knee arthroplasty unchanged Dictated by: Charly De Anda MD 02/17/2019 16:17 Signed by: <Electronically signed by Charly De Anda MD in [place]> 02/17/2019 16:17
== END ==
PROVIDERS: PCP Nurse Practitioner; Visit Provider Orthopaedic Surgery
DX: Z96.652 Presence of left artificial knee joint (principal)
CPT/HCPCS: 73560

== ENCOUNTER → 2019-03-02 12:52 | Outpatient (CLI) | payer MEDICARE, MEDICAID, SELFPAY | PROVIDERS: PCP Nurse Practitioner; Visit Provider Nurse Practitioner | DX: R42 Dizziness and giddiness (principal); R25.1 Tremor, unspecified | CPT/HCPCS: 95816 ==

== ENCOUNTER → 2019-06-15 12:33 | Outpatient (CLI) | payer MEDICARE, MEDICAID, SELFPAY ==
--- NOTE | 2019-06-15 12:38 | XR_ITS ---
PROCEDURE: XR KNEE LT 2V CLINICAL INDICATION: lt tka; had injury Follow-up total knee replacement with increasing pain and swelling following injury COMPARISON: KNEELMLT XR knee LT 2V from 09/04/2017 KNEELMLT XR knee LT 2V from 11/12/2017 KNEELMLT XR knee LT 2V from 08/05/2018 XR KNEE LT 2V from 02/17/2019 FINDINGS: Normal alignment prosthesis. No acute fracture or dislocation. Other findings:None. IMPRESSION: Status post total knee replacement with good alignment and no evidence of orthopedic complications Dictated by: Charly De Anda MD 06/15/2019 13:10 Electronically signed by Charly De Anda MD in [place] 06/15/2019 13:10
== END ==
PROVIDERS: PCP Nurse Practitioner; Visit Provider Orthopaedic Surgery
DX: Z96.652 Presence of left artificial knee joint (principal); M25.562 Pain in left knee
CPT/HCPCS: 73560

== ENCOUNTER 2019-06-15 15:13 | Outpatient (RCR) | payer MEDICARE, MEDICAID, SELFPAY | END 2019-06-15 15:45 | disposition home or self-care (01) | LOC: PT 15:13 | PROVIDERS: Visit Provider Orthopaedic Surgery | DX: M25.562 Pain in left knee (principal); Z96.652 Presence of left artificial knee joint | CPT/HCPCS: 97760 ==

== ENCOUNTER → 2019-06-16 10:48 | Outpatient (CLI) | payer MEDICARE, MEDICAID, SELFPAY ==
--- NOTE | 2019-06-16 10:51 | CA_ITS ---
APPROVED REPORT EXAM: Comprehensive 2D, Doppler, and color-flow Echocardiogram [employer]: Sherita Ballard RDCS Ht: 5 ft 7 in Wt: 265lbs BSA: 2.28 BP: 147/84 mmHg Indications: Hypertension/HDD,EDEMA 2D Dimensions LVOT 2.17 cm (M/F) 1.5-2.5 M-Mode Dimensions RVDd 2.39 cm (0.9-2.6) LVDd 5.92 cm (3.5-5.7) LVDs 4.64 cm (3.5-5.7) IVSd 0.86 cm (0.6-1.1) PWd 0.71 cm (0.6-1.1) EF (Teich) 43.10% FS 21.60% EDV (Teich) 174.60 mL ESV (Teich) 99.30 mL LV Diastology E/A Ratio 0.89 Mitral Valve MV A Velocity 76.00 (40-130 cm/s) Left Ventricle Left atrium is mildly enlarged, left ventricle is normal size, visually estimated ejection fraction 55% with no regional wall motion abnormality, grade 1 diastolic dysfunction seen without tissue Doppler evidence of raise left atrial pressure. Right Ventricle Right atrium and right ventricular normal size and contractility. Aortic Valve Aortic valve is minimally thickened and fibrosed, there is no aortic stenosis, there is mild aortic insufficiency. Mitral Valve Mitral valve is grossly normal, there is mild mitral regurgitation. Tricuspid Valve Tricuspid valve is grossly normal, there is mild tricuspid regurgitation. Pulmonic Valve Pulmonic valve is poorly visualized. Great Vessels Aortic root is normal size. Pericardium No significant pericardial effusion noted. Conclusion 1. Mildly enlarged left atrium, normal left ventricular size, visually estimated ejection fraction 55% with no regional wall motion abnormality, grade 1 diastolic dysfunction seen without tissue Doppler evidence of raise left atrial pressure. 2. Thickened and calcified aortic valve without aortic stenosis, there is trace aortic insufficiency. 3. Mild mitral and tricuspid regurgitation. 4. No significant pericardial effusion noted. Electronically signed by : Tushar Waters, 06/18/2019 13:14:19
== END ==
PROVIDERS: PCP Family Medicine; Visit Provider Nurse Practitioner
DX: M79.89 Other specified soft tissue disorders (principal); R60.1 Generalized edema
CPT/HCPCS: 93306

== ENCOUNTER → 2019-07-06 13:51 | Outpatient (CLI) | payer MEDICARE, MEDICAID, SELFPAY ==
--- NOTE | 2019-07-06 13:53 | US_ITS ---
APPROVED REPORT Exam Type: Lower Extremity Segmental Pressures Insurance Operations Rep: Sherita Ballard RDCS Indications Claudication: Rest Pain: Edema Risk Factors Hypertension Obesity Pressures/Indices Right Indices Left Indices Brachial 161.00 mmHg Brachial 150.00 mmHg High Thigh 207.00 mmHg High Thigh 232.00 mmHg Calf 167.00 mmHg Calf 148.00 mmHg Ankle(PT) 182.00 mmHg Ankle(PT) 173.00 mmHg Ankle(DP) 168.00 mmHg Ankle(DP) 183.00 mmHg Digit 147.00 mmHg Digit 122.00 mmHg Findings R CEASAR 1.13 L CEASAR 1.07 R TBI .9 L TBI .8 NORMAL PULSES DIMINISHED WAVEFORMS Conclusion No evidence significant arterial disease throughout the right and left lower extremities as evidenced by normal resting PVR waveforms and normal resting indices. Electronically signed by : Charly De Anda MD 07/06/2019 16:18:44
== END ==
PROVIDERS: PCP Nurse Practitioner; Visit Provider Nurse Practitioner
DX: I73.9 Peripheral vascular disease, unspecified (principal); M79.89 Other specified soft tissue disorders; R60.9 Edema, unspecified; M79.604 Pain in right leg; M79.605 Pain in left leg
CPT/HCPCS: 93923

== ENCOUNTER → 2019-07-12 15:38 | Outpatient (CLI) | payer MEDICARE, MEDICAID, SELFPAY | PROVIDERS: PCP Nurse Practitioner; Visit Provider Nurse Practitioner | DX: R00.2 Palpitations (principal) | CPT/HCPCS: 93270 ==

== ENCOUNTER → 2019-07-20 14:09 | Outpatient (CLI) | payer MEDICARE, MEDICAID, SELFPAY | PROVIDERS: PCP Nurse Practitioner; Visit Provider Nurse Practitioner | DX: G47.33 Obstructive sleep apnea (adult) (pediatric) (principal) | CPT/HCPCS: G0399 ==

== ENCOUNTER → 2019-08-09 12:38 | Outpatient (CLI) | payer MEDICARE, MEDICAID, SELFPAY ==
--- NOTE | 2019-08-09 12:50 | XR_ITS ---
PROCEDURE: XR KNEE LT 2V CLINICAL INDICATION: left knee pain; tka 08/19/17 Pain following injury COMPARISON: KNEELMLT XR knee LT 2V from 11/12/2017 KNEELMLT XR knee LT 2V from 08/05/2018 XR KNEE LT 2V from 02/17/2019 XR KNEE LT 2V from 06/15/2019 FINDINGS: Status post total knee replacement with good alignment. There is sclerosis along the lateral aspect of the proximal tibia may be due to prior sub chondroplasty unchanged. No acute fracture or dislocation. IMPRESSION: No change status post total knee replacement with good alignment Dictated by: Charly De Anda MD 08/09/2019 14:05 Electronically signed by Charly De Anda MD in [place] 08/09/2019 14:05
== END ==
PROVIDERS: PCP Nurse Practitioner; Visit Provider Orthopaedic Surgery
DX: S83.412A Sprain of medial collateral ligament of left knee, initial encounter (principal); Z96.652 Presence of left artificial knee joint
CPT/HCPCS: 73560

== ENCOUNTER → 2020-02-08 13:36 | Outpatient (CLI) | payer MEDICARE, MEDICAID, SELFPAY ==
--- NOTE | 2020-02-08 13:40 | MM_ITS ---
PROCEDURE: MM DIG SCREENING MAMM BI W/CAD Referring Doctor: Gabby London Patient Age:59Y CLINICAL INDICATION: SCREENING 59-year-old spur bilateral screening mammogram. No hormones but no new complaints. Previous hysterectomy. Family history. Negative COMPARISON: CT CTAC CTA-CHEST from 12/25/2015 MG DIG MAMM-SCREEN GENESIS from 01/05/2019 TECHNIQUE: Standard CC and MLO images were obtained. R2 CAD reviewed. Bilateral digital breast tomosynthesis included. Additional CC nipple profile views bilateral FINDINGS: Minimal residual fibroglandular elements in both breast but moderate of fatty replacement. No new dominant or suspicious mass but no suspicious calcifications. Right breast: No new areas of significant concern. Area of asymmetric fibroglandular elements at lateral right breast similar to previous study the with tissue and to dissipate tomosynthesis views particularly the MLO tomosynthesis image set Left breast no new areas of concern Bilateral follow-up 1 year recommended IMPRESSION: . Stable bilateral mammogram with no significant new areas of concern Bilateral follow-up 1 year recommended BI-RAD Category: 1 Negative FOLLOW-UP: 1YR 1 Year Follow-up (A letter has been sent to the patient regarding results of the study.) Dictated b Tyler Morris MD 02/08/2020 17:01 Tyler Morris MD in [place] 02/08/2020 17:01
== END ==
PROVIDERS: PCP Nurse Practitioner; Visit Provider Nurse Practitioner
DX: Z12.31 Encounter for screening mammogram for malignant neoplasm of breast (principal)
CPT/HCPCS: 77063; 77067

== ENCOUNTER → 2020-02-25 17:47 | Outpatient (CLI) | payer MEDICARE, MEDICAID, SELFPAY ==
--- NOTE | 2020-02-25 18:07 | XR_ITS ---
PROCEDURE: XR CERVICAL SPINE 5V CLINICAL INDICATION: NECK PAIN COMPARISON: No exams were available for comparison FINDINGS: There is reversal of the normal cervical lordosis with minimal anterolisthesis of C4 on of 3 mm and C5 on C6 2 mm. There is degenerative disc disease C5-C6 and C6-C7. No acute fracture or dislocation. There is mild on at C3-C4. Mild facet arthritic changes are present C3-C7. There is prominence of the transverse processes bilaterally at C7. Other findings:No acute fracture or dislocation. No lytic or blastic change IMPRESSION: Degenerative changes as described Dictated by: Charly De Anda MD 02/25/2020 22:11 Charly De Anda MD in [place] 02/25/2020 22:11
== END ==
PROVIDERS: PCP Nurse Practitioner; Visit Provider Nurse Practitioner
DX: M54.2 Cervicalgia (principal)
CPT/HCPCS: 72050

== ENCOUNTER 2020-03-02 06:32 | Emergency (ER) | payer MEDICARE, MEDICAID, SELFPAY ==
[2020-03-02] VITALS (12 sets, daily range): BP systolic 104–140; BP diastolic 58–94; PULSE 49–58; RESP 14–18; TEMP 36.4–36.6; O2SAT 91–98; BMI 43.8
--- NOTE | 2020-03-02 06:36 | ECG_ITS ---
APPROVED REPORT Exam: Resting ECG HR:51 bpm ECG Measurements Heart Rate 51 AXES [place] 174 P 38 QRSd 100 QRS -6 QT 458 T 32 QTc 422 <Conclusion> Sinus bradycardia Left ventricular hypertrophy with repolarization abnormality Abnormal ECG Electronically signed by : Ulises Negrete, 03/03/2020 06:34:45
--- NOTE | 2020-03-02 06:41 | HMH.EDOD ---
ED Disposition Clinical Impression: Drug overdose Qualifiers: Encounter type: initial encounter Injury intent: accidental or unintentional Qualified Code(s): T50.901A - Poisoning by unspecified drugs, medicaments and biological substances, accidental (unintentional), initial encounter Disposition: Home, Self-Care Condition on Discharge: Good Instructions: DI for Drug Overdose in Adults Referrals: Ulises Judd MD [Primary Care Provider] - - Critical Care Critical Care Time: No Attestation: On , the high probability of a clinically significant, sudden or life threatening deterioration of the following system(s) required my full and direct attention, intervention and personal management. The time I documented below is in addition to time spent performing reported procedures but includes the following listed in this critical care notation. Medical Decision Making - Medical Records Medical records reviewed: Yes: I reviewed the patient's medical records. - Tavo Inquiry Pt receiving controlled substance: No Vital Signs: 03/02/20 06:30 Temperature 97.8 F Temperature Source Oral Pulse Rate [Left] 58 L Respiratory Rate 18 Blood Pressure [Right Arm] 137/85 Blood Pressure Mean [Right Arm] 102 Blood Pressure Source [Right Arm] Automatic Cuff Blood Pressure Position [Right Arm] Sitting 02 Sat by Pulse Oximetry 97 Oxygen Delivery Method Room Air - Lab Data Lab Results 03/02/20 06:30: WBC 7.4, RBC 3.89 L, Hgb 12.7, Hct 38.2, MCV 98.3, MCH 32.6 H, MCHC 33.2, RDW 13.2, Plt Count 209, MPV 8.8, Neut % (Auto) 65.3, Lymph % (Auto) 20.5, Crisp % (Auto) 4.9, Eos % (Auto) 8.4, Baso % (Auto) 0.8, Neut # (Auto) 4.8, Lymph # (Auto) 1.5, Crisp # (Auto) 0.4, Eos # (Auto) 0.6 H, Baso # (Auto) 0.1 03/02/20 06:30: Sodium 142, Potassium 3.7, Chloride 103, Carbon Dioxide 30, Anion Gap 12.7, BUN 17, Creatinine 1.20 H, Estimated Creat Clear 49, Estimated GFR 46 L, Est GFR ( Amer) 56 L, Glucose 140 H, Calcium 9.5, Total Bilirubin 0.6, AST 79 H, ALT 86 H, Alkaline Phosphatase 102, Total Protein 7.2, Albumin 4.2, Globulin 3.0, Albumin/Globulin Ratio 1.4 03/02/20 06:30: Acetaminophen 58 H Result diagrams: 03/02/20 06:30 03/02/20 06:30 Orders (Tests/Meds): ED MEDICATIONS Discontinued Medications Generic Name Dose Route Start Last Admin Trade Name Horacio PRN Reason Stop Dose Admin Lactated Ringer's 1,000 mls @ 999 mls/hr 03/02/20 06:45 03/02/20 06:46 Lactated Ringer's 1000 Ml Bag IV 03/02/20 07:45 999 mls/hr .Q1H1M JAVIER Administration ORDERS Category Date Time Status Acetaminophen Timed Lab 03/02/20 10:30 Ordered Drug Screen,Urine Stat Lab 03/02/20 06:42 Ordered Urinalysis and Microscopic Stat Lab 03/02/20 06:42 Ordered Medical Decision Narrative: 59-year-old female with past medical history of A. fib, chronic pain, and depression brought in by EMS for further evaluation after overdose. Patient took approximately 8-12 7.5 mg [place] tablets. Received Narcan in route by EMS. Awake alert and oriented on arrival and tearful. Denies suicidal or self-harm thoughts. Denies this being a suicide attempt. Poison Control Center called and recommended obtaining basic labs along with acetaminophen level at 4 hours. Poison Control Center also recommended observing patient for at least 6 hours after ingestion. Labs obtained including CBC, CMP, urine drug screen, 4-hour serum and level. Provided patient with 1 L bolus of lactated Ringer's. Labs significant for mild elevated LFTs. 0-hour acetaminophen level of 58. Repeat draw obtained and not elevated greater than 200. Following observation in emergency department patient remained hemodynamically stable. Patient to be discharged home with outpatient follow-up with PCP. Overdose HPI - General Chief Complaint: Overdose Stated Complaint: ACCIDENTAL OVERDOSE Time Seen by Provider: 03/02/20 06:35 Mode of Arrival: EMS Limitations: No Limitations Description of
--- NOTE | 2020-03-02 06:51 | PC.NURSE ---
SPOKE TO [facility] AT [facility]. CHERISE RECOMMENDS TO REPEAT A TYLENOL LEVEL IN APPROX 4 HOURS, BUT TO OBSERVE PATIENT UP TO 6+ HOURS IF SHE IS SYMPTOMATIC. ATTENDING NOTIFIED.
[2020-03-02 06:53] LABS: Basophils # 0.1 K/mm3 (0-0.2); Basophils % 0.8 % (0.1-2.0); Eosinophils # 0.6 K/mm3 (0.0-0.4); Eosinophils % 8.4 % (0.1-12.0); Hematocrit 38.2 % (37.0-47.0); Hemoglobin 12.7 g/dL (12.2-16.2); Lymphocytes # 1.5 K/mm3 (0.7-4.5); Lymphocytes % 20.5 % (10-50); Mean Corpuscular HGB Conc 33.2 g/dL (31.8-35.4); Mean Corpuscular Hemoglobin 32.6 pg (27.0-31.2); Mean Corpuscular Volume 98.3 fl (81-99); Mean Platelet Volume 8.8 fl (7.4-10.4); Monocytes # 0.4 K/mm3 (0.1-1.0); Monocytes % 4.9 % (1.7-9.3); Neutrophils # 4.8 K/mm3 (1.8-7.8); Neutrophils % 65.3 % (37.0-80.0); Platelet Count 209 K/mm3 (142-424); Red Blood Count 3.89 M/mm3 (4.20-5.40); Red Cell Distribution Width 13.2 % (11.5-17.5); White Blood Count 7.4 K/mm3 (4.8-10.8)
[2020-03-02 06:55] LABS: Chloride 103 mmol/L (98-107); Potassium 3.7 mmoL/L (3.5-5.1); Sodium 142 mmol/L (136-145)
[2020-03-02 06:57] LABS: Blood Urea Nitrogen 17 mg/dl (7-17)
[2020-03-02 06:58] LABS: Acetaminophen 58 ug/ml (10-30); Alanine Aminotransferase 86 U/L (12-78); Albumin Level 4.2 g/dl (3.5-5.0); Albumin/Globulin Ratio 1.4 (1.1-1.8); Alkaline Phosphatase 102 U/L (38-126); Aspartate Amino Transferase 79 U/L (14-36); Bilirubin,Total 0.6 mg/dl (0.2-1.3); Calcium 9.5 mg/dl (8.4-10.2); Creatinine Clearance Estimated 49 mL/min (50-200); Estimated Glomerular Filt Rate 46 ml/min (>60); GFR (African American) 56 ML/MIN (>60); Glucose 140 mg/dl (74-100); Total Protein,Serum 7.2 g/dl (6.3-8.2)
[2020-03-02 07:07] LABS: Anion Gap 12.7 mEq/L (5-15); Carbon Dioxide 30 mmol/L (22.0-30.0)
--- NOTE | 2020-03-02 07:17 | PC.NURSE ---
report received from Urmila RN
--- NOTE | 2020-03-02 08:44 | PC.NURSE ---
Pt resting at this time, no needs voiced. States she cannot provide urine specimen at this time. Dr Lloyd notified.
--- NOTE | 2020-03-02 09:12 | PC.NURSE ---
Poison control called for an update on patient. Update given.
[2020-03-02 10:54] LABS: Acetaminophen 26 ug/ml (10-30)
--- NOTE | 2020-03-02 11:31 | PC.NURSE ---
MD at bedside. Patient given a lunch tray. Is awake and alert.
--- NOTE | 2020-03-02 12:35 | PC.NURSE ---
patient in bathroom at this time
== END 2020-03-02 12:51 | disposition home or self-care (01) ==
PROVIDERS: Emergency Provider Emergency Medicine; PCP Family Medicine
DX: T40.2X1A Poisoning by other opioids, accidental (unintentional), initial encounter (principal); Y92.019 Unspecified place in single-family (private) house as the place of occurrence of the external cause; I48.20 Chronic atrial fibrillation, unspecified; F41.8 Other specified anxiety disorders; I10 Essential (primary) hypertension; E03.9 Hypothyroidism, unspecified; Z79.899 Other long term (current) drug therapy; Z90.710 Acquired absence of both cervix and uterus
CPT/HCPCS: 80053; 80329; 85025; 93005; 96365; 99284

== ENCOUNTER → 2020-03-09 09:49 | Outpatient (POV) | payer MEDICARE, MEDICAID, SELFPAY ==
[2020-03-09 11:03] VITALS: BP 135/57; PULSE 58; RESP 19; TEMP 36.9; O2SAT 100; BMI 42.5
--- NOTE | 2020-03-09 12:21 | HMH.PMCON ---
Assessment and Plan (1) Degenerative joint disease (DJD) of lumbar spine Current visit: Yes Status: Chronic Category: Medical Code(s): M47.816 - Spondylosis without myelopathy or radiculopathy, lumbar region (2) Lumbar radiculopathy Current visit: Yes Status: Chronic Category: Medical Code(s): M54.16 - Radiculopathy, lumbar region (3) Spinal stenosis of lumbar region Current visit: Yes Status: Chronic Category: Medical Code(s): M48.061 - Spinal stenosis, lumbar region without neurogenic claudication (4) Neurogenic claudication Current visit: Yes Status: Chronic Category: Medical Code(s): M48.062 - Spinal stenosis, lumbar region with neurogenic claudication - Assessment and plan all Dx Assessment and Plan for all problems:: We will schedule the patient for a lumbar epidural steroid injection at L4-L5 with an epidurogram. We will see if the patient gets relief with the injections. She does have spinal stenosis with some neurogenic claudication symptoms. She may possibly benefit from possible vert a flex versus spinal cord stimulation if she does not get any relief with the injections. She was given educational information regarding both procedures. We will follow-up with her after her injection to see if she got any relief. She is on Xarelto we will contact her provider to see if she is able to hold her anticoagulation therapy. Patient has been instructed to contact clinic if she has any concerns before her next appointment. The patient and I specifically discussed risk factors for COVID19. These risks include, but are not limited to age greater than 60, heart or lung disease, diabetes, immunosuppression, and travel. We also discussed NSAIDs may worsen COVID19 infection or symptoms. Patient should not use NSAIDs to treat COVID19 signs or symptoms. Patient was also informed that any type of corticosteroid of any form (oral or injection) will decrease the patient's immune system response and may increase the likelihood of COVID19 infection [address] symptoms[address] Barnett has reviewed this note and agrees with this plan of care. This note was dictated using voice recognition software and make contain errors or omissions. HPI - Data of Consult Patient: new to practice Consult date: 03/09/20 Requesting Physician: María Elena Mcmillan APRN Primary Care Provider: Aristides Thompson MD - Consult Narrative Reason for consult: Chronic low back pain History of present illness: Ms. Wood is a 59 year old female is today for consultation for chronic low back pain. Patient has multiple comorbidities. She currently is on anticoagulation therapy for atrial fibrillation. She takes Xarelto as prescribed by Gabby Clark APRN. She is also had gastric bypass in the past. Patient says that she was followed by a pain management clinic in [facility] for which she did undergo injective therapy. Patient has had multiple injections along with various conservative therapies. Patient did try physical therapy for greater than 6 weeks. She did try anti-inflammatories in the past, though she does report to be on Xarelto. Patient says that she has had medial branch blocks and ablations in the past which did not give her any relief. She complains primarily of low back pain that is radiating into her bilateral lower extremities. She says that her pain is causing her legs to feel like they are going to give out . She says she also feels like something is wrapped around bilateral toes . She says that she continuously checks her feet to make sure rubber bands or hair is not wrapped around her toes causing decreased circulation. She reports to have numbness, tingling, edema and redness in her bilateral lower extremities. Patient says that when she is standing and walking she feels as though her legs are going to buckle . She does have imaging from 2018 that shows spinal stenosis. Her pain is 7 out of 10 today. CC: María Elena May
== END ==
PROVIDERS: PCP Family Medicine; Visit Provider Clinical Nurse Specialist Family Health
DX: M48.062 Spinal stenosis, lumbar region with neurogenic claudication (principal); M47.896 Other spondylosis, lumbar region; M54.16 Radiculopathy, lumbar region
CPT/HCPCS: 99202

== ENCOUNTER → 2020-03-12 10:31 | Outpatient (CLI) | payer MEDICARE, MEDICAID, SELFPAY | PROVIDERS: PCP Nurse Practitioner; Visit Provider Internal Medicine Gastroenterology | DX: Z01.818 Encounter for other preprocedural examination (principal) ==

== ENCOUNTER 2020-03-13 11:49 | Day surgery (SDC) | payer MEDICARE, MEDICAID, SELFPAY ==
[2020-03-09 13:46] VITALS: BMI 42.7
--- NOTE | 2020-03-09 13:58 | SUR.PREOP ---
spoke with Dr. Judd's office regarding patient's xarelto. Dr. Judd ok'd patient to stop xarelto tomorrow and resume after the colonoscopy on Friday. Call patient and left message on voicemail with these instructions
[2020-03-12 13:24] LABS: Coronavirus 19 IgG Antibody Negative (Negative); Coronavirus 19 IgM Antibody Negative (Negative)
[2020-03-13] VITALS (8 sets, daily range): BP systolic 117–140; BP diastolic 60–87; PULSE 53–58; RESP 12–18; TEMP 36.5–36.7; O2SAT 95–99
--- NOTE | 2020-03-13 14:27 | HMH.PROC ---
[facility] Procedure Note Procedure Note:: Colonoscopy Procedure Report: Colonoscopy with hemorrhoid band ligation Endoscopist: Brenden Oh II, MD Referring physician: Saundra TERRY Date of Procedure: March 13, 2020 Equipment: Olympus 180 variable stiffness pediatric colonoscope Sedation: MAC sedation Indication: Mrs. Wood is a 59-year-old female who is here for diagnostic colonoscopy secondary to rectal bleeding. She has had blood that will fill the toilet bowl and sometimes on the toilet tissue. This has occurred 5-6 times over the last couple of months. She does have some irregular bowel function with both diarrhea and sometimes regular bowel function. She occasionally will have constipation. The patient has noted some rectal or hemorrhoidal prolapse. She also reports some right lower quadrant abdominal discomfort. She reports no bloating or gassiness. She reports no weight loss or family history of colon cancer. She does state that her last colonoscopy was 5 to 6 years ago at which time colon polyps were removed. Her recent lab work did show normal hemoglobin 12.1 and hematocrit 36.2. Procedure: Prior to the procedure, a history and physical exam was performed, and patient's medications and allergies were reviewed. The risks, benefits and alternatives of the sedation and procedure were discussed with the patient. All questions were answered and informed consent was obtained. The patient was brought to the procedure room. Patient identification and proposed procedure were verified by the physician and the nurse. The patient was placed in a left lateral decubitus position and the scope was passed under direct vision. Throughout the procedure, the patient's blood pressure, pulse, and oxygen saturations were monitored continuously. The colonoscopy was accomplished without difficulty. The patient tolerated the procedure well. Findings: On digital rectal examination there was normal rectal tone. There were no external hemorrhoids. The colonoscope was introduced through the anal canal to the rectum and advanced to the cecum. The ileocecal valve and appendiceal orifice were identified. The scope was advanced a short distance into the ileum which appeared grossly normal. The scope was then withdrawn into the colon. The cecum, ascending, transverse, descending, sigmoid and rectum were grossly normal. There was mild diverticulosis of the descending and sigmoid colon. There were no mucosal abnormalities identified. Upon retroflexion within the rectum there were grade 2-3 internal hemorrhoids.These were banded using 3 bands with excellent ligation effect. The preparation was excellent throughout with [place] Preparation Score of 9. The cecal time was 10 minutes. Impression: 1. Mild left-sided diverticulosis 2. Grade 2-3 internal hemorrhoids status post band ligation x3 Plan: The patient will not require screening/surveillance colonoscopy again for 10 years by ACS guidelines. I would encourage dietary measures and bulk fiber supplementation on a long-term daily maintenance basis.
--- NOTE | 2020-03-13 14:54 | HMH.ANESCL ---
[facility] Anesthesia Checklist - Structural Data Admitted From: Home Planned Operative Procedure/s: colonoscopy Consent for Planned Operative Procedure(s) Verified: Yes - Additional verifications Anesthesia Reactions: No (nausea/vomiting) Hx Blood Transfusions: No - Airway Assessment C-Spine Mobility Assessed: Yes TMJ Mobility Assessed: Yes Dentition: Good Dentition - Neurological Assessment Level of Consciousness: Awake, Alert, Appropriate - Anesthesia Plan Anesthesia Risk discussed: Yes Anesthesia Plan: Verified ASA Class: II Anesthesia Type: MAC [facility] History I have reviewed the patient's past medical history: Yes Medical History: Reports:: Anxiety, Atrial Fibrillation, Depression, Hypertension Denies:: Cancer, Diabetes Mellitus Type 1, Diabetes Mellitus Type 2, Internal Pacemaker, MRSA, Seizures *Have you ever received a pneumonia vaccine?: No *Have you received a flu vaccine this season?: No Other Medical History: Reports: Arthritis, Thyroid Disease, Other Anesthesia experience/problems:: none Laterality Cases: Left: Arthroscopy Knee Other Surgeries: Yes: Bariatric Surgery, Cardiac Catheterization, Cholecystectomy, Colonoscopy, Hysterectomy-Total, Other. No: Pacemaker Amputation: No Fractures: Yes (right first toe fracture) - *Social History Smoking Status: Never smoker Alcohol Intake: never Substance Use Type: denies use *Occupational Status:: disabled Housing: house Household Members: spouse *Travel in the last 8 weeks: None - Psychiatric History Pschychiatric History:: Reports:: Anxiety, Depression Family Hx:: Anemia, Cancer, Diabetes, Heart Attack, Hypertension, Thyroid Disorder
== END 2020-03-13 16:06 | disposition home or self-care (01) ==
LOC: OUTP 11:51
PROVIDERS: PCP Nurse Practitioner; Visit Provider Internal Medicine Gastroenterology
PROC: 0DJD8ZZ Inspection of Lower Intestinal Tract, Via Natural or Artificial Opening Endoscopic (ICD-10-PCS; CPT 45378; principal; 2020-03-13 13:00)
DX: Z86.010 Personal history of colon polyps (principal); K57.30 Diverticulosis of large intestine without perforation or abscess without bleeding; K64.1 Second degree hemorrhoids; I10 Essential (primary) hypertension; I48.91 Unspecified atrial fibrillation; F32.9 Major depressive disorder, single episode, unspecified; F41.9 Anxiety disorder, unspecified; M19.90 Unspecified osteoarthritis, unspecified site; E07.9 Disorder of thyroid, unspecified; Z98.84 Bariatric surgery status; Z90.49 Acquired absence of other specified parts of digestive tract; Z90.710 Acquired absence of both cervix and uterus
CPT/HCPCS: 45398; 36415; 86328

== ENCOUNTER 2020-03-31 11:08 | Day surgery (SDC) | payer MEDICARE, MEDICAID, SELFPAY ==
[2020-03-31 11:28] VITALS: BP 161/81; PULSE 56; RESP 19; TEMP 36.5; O2SAT 99; BMI 40.7
--- NOTE | 2020-03-31 11:49 | HMH.PMPROC ---
- Procedure Date: 03/31/20 Time: 11:49 Anesthesiologist:: Ned Barnett MD Complications:: None Pre-procedure Diagnosis:: Degenerative disc disease of lumbar spine with lumbar radiculopathy symptoms Post-procedure Diagnosis:: Same Indications for Procedure:: This patient is a pleasant 59-year-old white female who we are treating for low back pain with lumbar radiculopathy symptoms. She has been off her Xarelto for 4 days. Most of her pain is in the back rating down both legs. Will do lumbar epidural steroid injection today to help her with her pain symptoms. Procedure Details:: Informed consent was obtained and the risk and benefits of the procedure was explained to the patient. The patient was taken to the procedure room. The patient was placed prone on the procedure table. The patient was prepped and draped in sterile fashion. C-arm fluoroscopy was used to view the lumbar spine. Skin and subcutaneous tissues were anesthetized using lidocaine. I placed an 18-gauge epidural needle and advanced into the L4-L5 interspace using fluoroscopic guidance and [id number] to air. After confirmation of needle placement in the epidural space with dye I injected 2 mL of lidocaine 1.5% with Depo-Medrol 80 mg. Patient tolerated the procedure well with no complications. Plan and Disposition:: Patient does have significant scoliosis so she is most likely not a candidate for minimally invasive lumbar decompression or superion Vertiflex. She can restart her Xarelto tomorrow. We will follow-up with her in 2 weeks. Will reevaluate her symptoms at that time. If she continues to have significant pain with minimal long-term relief from epidurals she may be a candidate for spinal cord stimulation
[2020-03-31 11:50] VITALS: BP 135/85; PULSE 85; RESP 18
[2020-03-31 11:52] VITALS: BP 138/85; PULSE 85; RESP 18; O2SAT 98
[2020-03-31 12:12] VITALS: BP 156/83; PULSE 48; RESP 18; O2SAT 99
== END 2020-03-31 12:13 | disposition home or self-care (01) ==
LOC: SC.PAINP 11:09
PROVIDERS: PCP Nurse Practitioner; Visit Provider Anesthesiology
DX: M51.16 Intervertebral disc disorders with radiculopathy, lumbar region (principal); K21.9 Gastro-esophageal reflux disease without esophagitis; E03.9 Hypothyroidism, unspecified; I48.91 Unspecified atrial fibrillation; I10 Essential (primary) hypertension; J45.909 Unspecified asthma, uncomplicated; F41.9 Anxiety disorder, unspecified; F32.9 Major depressive disorder, single episode, unspecified; N28.9 Disorder of kidney and ureter, unspecified; Z88.8 Allergy status to other drugs, medicaments and biological substances; Z79.899 Other long term (current) drug therapy
CPT/HCPCS: 62323; J1040

== ENCOUNTER 2020-04-06 11:00 | Outpatient (RCR) | payer MEDICARE, MEDICAID, SELFPAY ==
--- NOTE | 2020-03-15 14:10 | HMH.PTOPEV ---
PT Outpatient Evaluation Rehab PT Outpatient Evaluation Start: 03/15/20 13:21 Freq: Status: Active Protocol: Document 03/15/20 13:22 RU (Rec: 03/15/20 14:09 UR [id number]) Electronically Signed By Slade Mckinnon, PT 03/15/20 13:22 Outpatient Therapy Subjective History Subjective History Pt reports acute onset L sided neck pain following 'a spell' (siezure-like episode) ~2 weeks ago. Pt reports 'I just marion freak out, and my neck and shoulders get really tight and tense', and reports constant L sided neck pain since event, with referred pain into L SH, and L suboccipital area. Chief Complaint Pain,Spasms,Stiff Symptom Type Ache,Sharp,Dull Symptoms Relieved By Rest/Positioning,Heat,Ice Symptoms Aggravated By Physical Activity,Twisting, Lifting Prior Functional Limitations None Current Functional Limitations Lifting,Housework,Driving Symptom Description Constant but Variable Level of pain today (0-10) 4 Pain scale - at its best (0-10) 4 Pain scale - at its worst (0-10) 8 Cervical Eval Palpation Cervical Muscles L Cervical Paraspinal,L Suboccipital,L CT Junction,R Upper Trapezius,L Upper Trapezius Cervical/Thoracic Palpation Findings Tenderness,Spasm,Trigger Point Posture Head/C-Spine Posture Sitting Position Flexed Head/C-Spine Posture Standing Position Flexed Flexibility Deficits Upper Trapezius Muscle Length (R) Mild Tightness,(L) Moderate Tightness Levaetor Scapulae Muscle Length (R) Mild Tightness,(L) Mild Tightness Scalene Group Muscle Length (R) Mild Tightness,(L) Mild Tightness Passive Joint Mobility Cervical PIVM Dec: R OA L OA R AA L AA R C2/3 L C2/3 R C3/4 L C3/4 R C4/5 L C4/5 R C5/6 L C5/6 R C6/7 L C6/7 R C7/T1
== END 2020-04-06 11:05 | disposition home or self-care (01) ==
LOC: PT 11:00
PROVIDERS: PCP Nurse Practitioner; Visit Provider Nurse Practitioner
DX: M54.2 Cervicalgia (principal)
CPT/HCPCS: 97010; 97014; 97035; 97110; 97140; 97163; G0283

== ENCOUNTER → 2020-04-20 13:20 | Outpatient (POV) | payer MEDICARE, MEDICAID, SELFPAY ==
[2020-04-20 13:50] VITALS: BP 132/85; PULSE 62; RESP 18; O2SAT 98; BMI 40.4
--- NOTE | 2020-04-20 13:56 | HMH.PAINSOAP ---
[facility] Pain Management SOAP Note Subjective:: Patient is a 59-year-old white female who presents today for follow-up. She is being treated for chronic low back pain with lumbar radiculopathy symptoms. The patient's pain is primarily in her low back area with radiation into her bilateral lower extremities. She does have numbness and tingling as well. Patient says she has no sensation to her right foot. She does say she is having throbbing sensations to her low back area and legs. Patient reports she did not get any relief following the lumbar epidural steroid injection. She rates her pain a 6 out of 10 today. She also reports to be having neck pain that is causing her to have numbness and tingling in her bilateral arms and hands. 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 The patient has tried conservative therapies of physical therapy for more than 6 weeks. She is also used ice and heat therapies. She continues with a limited home stretching program to the best of her ability. The patient is currently on Xarelto that is prescribed by Dr. Mckenzie. She has been approved to hold her anticoagulation therapy in the past for injective therapy. Patient says that injections have not been beneficial for her pain either. Patient has tried all conservative therapies and failed at this point. She was evaluated for possible Vertiflex procedure, however, due to significant scoliosis was not considered a candidate. Dr. SHAWN Silver did discuss with the patient at the last visit possible spinal cord stimulation. She is interested in this type of therapy. Review of Systems General: No recent weight changes, no fever, no sleep disturbances Respiratory: No cough, no shortness of air, no recurring pulmonary infections Cardiovascular/peripheral vascular: No chest pain, no palpitations, no edema, no shortness of breath Gastrointestinal: No new onset incontinence, normal bowel movements reported Genitourinary: No new onset incontinence Musculoskeletal: Low back pain with radiation into bilateral lower extremities and feet with numbness and tingling, neck pain with radiation into bilateral upper extremities with numbness and tingling bilateral hands Psychiatric: Normal mood/affect Neurological: [Denies weakness in extremities], [denies balance issues] Objective:: Physical exam General: Alert and oriented x3, no acute distress, pleasant and cooperative, [on room air] Lungs: Respirations even and unlabored, symmetrical chest expansion Eyes: PERRL Musculoskeletal: Flexion and extension of cervical and lumbar spine somewhat guarded secondary to pain, deep tendon reflexes normal, strength in upper and lower extremities [5/5], [abnormal gait noted] Neurological: Speech clear, staff physician equal, no gross sensory deficit Assessment:: Degenerative disc disease lumbar spine with lumbar radiculopathy symptoms, neck pain with cervical radiculopathy symptoms Plan:: Patient has tried and failed conservative therapies of injections, ice and heat therapies and physical therapy/home stretching programs. The patient cannot take anti-inflammatories due to anticoagulation therapy. She is not interested in oral opiates. At this point the patient would likely benefit from spinal cord stimulation. We will schedule her for psychological evaluation for possible spinal cord stimulator. We will see her back after her psychological evaluation to discuss a further plan of care. She has been instructed to contact clinic if she has any concerns before next appointment. The patient and I specifically discussed risk factors for COVID19. These risks include, but are not limited to age greater than 60, heart or lung disease, diabetes, immunosuppression, and travel. We also discussed NSAIDs may worsen COVID19 infection or symptoms. Patient should not use NSAIDs to treat COVID19 signs or symptoms. Bryanna
== END ==
PROVIDERS: PCP Nurse Practitioner; Visit Provider Clinical Nurse Specialist Family Health
DX: M51.16 Intervertebral disc disorders with radiculopathy, lumbar region (principal); M54.12 Radiculopathy, cervical region; M54.2 Cervicalgia
CPT/HCPCS: 99212

== ENCOUNTER 2020-05-28 18:02 | Emergency (ER) | payer MEDICARE, MEDICAID, SELFPAY ==
[2020-05-28 18:06] VITALS: BP 126/83; PULSE 60; RESP 18; TEMP 36.7; O2SAT 100; BMI 40.4
--- NOTE | 2020-05-28 18:23 | HMH.EDGENADL ---
ED Disposition Clinical Impression: Low back pain Qualifiers: Chronicity: chronic Back pain laterality: midline Sciatica presence: with sciatica Sciatica laterality: bilateral sciatica Qualified Code(s): M54.41 - Lumbago with sciatica, right side; M54.42 - Lumbago with sciatica, left side; G89.29 - Other chronic pain Disposition: Home, Self-Care Condition on Discharge: Good Instructions: DI for Low Back Pain Additional Instructions: Continue your current pain medication. Call Saundra Combs tomorrow for follow-up. Referrals: Gabby London APRN [Primary Care Provider] - - Critical Care Critical Care Time: No Attestation: On 05/28/20, the high probability of a clinically significant, sudden or life threatening deterioration of the following system(s) required my full and direct attention, intervention and personal management. The time I documented below is in addition to time spent performing reported procedures but includes the following listed in this critical care notation. Medical Decision Making - Medical Records Medical records reviewed: Yes: I reviewed the patient's medical records. MR Comment: Reviewed pain management clinic note 04/20/2020, discussion regarding nerve stimulator, reviewed most recent emergency department visit note 03/02/2009/17/2019 which was for an opiate overdose, took 8-12 of her Lortab 7.5 mg. - Tavo Inquiry Pt receiving controlled substance: No Tavo was queried for this patient: Yes Reference #:: [id number] Comment: 19 rxs. last rx 180 lortab 7.5mg on 05/22/20 (30d supply) Vital Signs: 05/28/20 18:06 Temperature 98.0 F Temperature Source Oral Pulse Rate [Right Radial] 60 Respiratory Rate 18 Blood Pressure [Right Arm] 126/83 Blood Pressure Mean [Right Arm] 97 Blood Pressure Source [Right Arm] Automatic Cuff Blood Pressure Position [Right Arm] Sitting 02 Sat by Pulse Oximetry 100 Oxygen Delivery Method Room Air - Lab Data Lab Results 05/28/20 18:35: Urine Color Yellow, Urine Appearance Clear, Urine pH 6.0, Ur Specific [place] 1.025, Urine Protein Negative, Urine Glucose (UA) Negative, Urine Ketones Negative, Urine Blood Negative, Urine Nitrate Negative, Urine Bilirubin Negative, Urine Urobilinogen 0.2, Ur Leukocyte Esterase Negative, Urine WBC Occasional Orders (Tests/Meds): ORDERS Category Date Time Status Lumbar spine XR 2-3 views [XR lumbar spine 2-3V] Stat Exams 05/28/20 18:37 Taken - Radiology Data #1 Image(s): L-Spine - Physician Consults Physician Consulted: Dutch Time: 19:02 Reason -: Pt condition Medical Decision Narrative: Prior LS spine x-ray: EXAM: XR lumbar spine min 4V HISTORY: ITS.REASON: LBP MULTIPLE SITES ORDERING PHYSICIAN: Gabby London PATIENT AGE: 57 years COMPARISON: None FINDINGS: There is mild lumbar scoliosis convex left which measures 13 degrees. Degenerative disc disease is present at L2-L3, L3-L4, L4-L5, and L5-S1. There is 5 mm anterolisthesis of L4 on L5. No fracture or dislocation. No lytic or blastic change. IMPRESSION: Mild levoscoliosis with multilevel degenerative disc disease Dictated By: Charly De Anda MD Signed By: <Electronically signed by Charly De Anda MD in [place]> 06/10/18 1526 DD/ 1524 General Adult HPI - General Stated complaint: Back pain Time Seen by Provider: 05/28/20 18:30 - History of Present Illness HPI narrative: Patient complains of low back pain. She says she twisted wrong about a week and a half ago and felt a crack in her back. She complains of pain in the lower lumbar midline. She has chronic back pain, says that she has scoliosis and spinal stenosis. She has chronic numbness in both the legs because of her spinal stenosis. She says that the aching and numbness in her legs seems to be worse since she injured her back. She goes to pain management with Dr. Barnett and says that they are planning on putting a spinal cord stimulator.
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
[2020-05-28 18:39] LABS: Microscopic, Urine URINE MICROSCOPIC (MICROSCOPIC)
[2020-05-28 18:55] LABS: Appearance,Urine CLEAR (Clear); Bilirubin,Urine Negative (Negative); Blood, Urine Negative (Negative); Color,Urine YELLOW (Yellow); Glucose,Urine (UA) Negative (Negative); Ketones,Urine Negative (Negative); Leukocyte Esterase,Urine Negative (Negative); Nitrate,Urine Negative (Negative); Protein,Urine Negative (Negative); Specific Gravity, Urine 1.025 (1.005-1.030); Urobilinogen,Urine 0.2 EU/dl (0.2)
[2020-05-28 18:57] LABS: WBC,Urine Occasional #/hpf (0-3)
[2020-05-28 19:24] VITALS: BP 130/78; PULSE 64; RESP 18; TEMP 36.7; O2SAT 98
== END 2020-05-28 19:27 | disposition home or self-care (01) ==
PROVIDERS: Emergency Provider Emergency Medicine; PCP Nurse Practitioner
DX: M54.42 Lumbago with sciatica, left side (principal); G89.29 Other chronic pain; I48.0 Paroxysmal atrial fibrillation; F41.8 Other specified anxiety disorders; I10 Essential (primary) hypertension; E03.9 Hypothyroidism, unspecified; Z79.899 Other long term (current) drug therapy
CPT/HCPCS: 72100; 81001; 99282

== ENCOUNTER 2020-07-14 10:08 | Day surgery (SDC) | payer MEDICARE, MEDICAID, SELFPAY ==
[2020-07-14 07:54] VITALS: BMI 40.4
[2020-07-14 10:53] VITALS: BP 134/84; PULSE 60; RESP 18; TEMP 36.4; O2SAT 100
[2020-07-14 11:00] LABS: Basophils # 0.1 K/mm3 (0-0.2); Eosinophils # 1.1 K/mm3 (0.0-0.4); Eosinophils % 16.9 % (0.1-12.0); Hematocrit 41.1 % (37.0-47.0); Lymphocytes # 1.1 K/mm3 (0.7-4.5); Lymphocytes % 18.2 % (10-50); Mean Corpuscular Hemoglobin 33.8 pg (27.0-31.2); Mean Corpuscular Volume 99.5 fl (81-99); Mean Platelet Volume 8.2 fl (7.4-10.4); Monocytes # 0.3 K/mm3 (0.1-1.0); Monocytes % 4.1 % (1.7-9.3); Neutrophils # 3.7 K/mm3 (1.8-7.8); Neutrophils % 59.8 % (37.0-80.0); Platelet Count 258 K/mm3 (142-424); Red Blood Count 4.13 M/mm3 (4.20-5.40); Red Cell Distribution Width 13.4 % (11.5-17.5); White Blood Count 6.3 K/mm3 (4.8-10.8)
[2020-07-14 11:07] LABS: POC Glucose,Bedside 111 (70-110)
[2020-07-14 11:19] LABS: Anion Gap 10.3 mEq/L (5-15); Blood Urea Nitrogen 18 mg/dl (7-17); Calcium 9.9 mg/dl (8.4-10.2); Carbon Dioxide 33 mmol/L (22.0-30.0); Chloride 102 mmol/L (98-107); Creatinine Clearance Estimated 102 mL/min (50-200); Estimated Glomerular Filt Rate 51 ml/min (>60); GFR (African American) 62 ML/MIN (>60); Glucose 123 mg/dl (74-100); Potassium 3.3 mmoL/L (3.5-5.1); Sodium 142 mmol/L (136-145)
[2020-07-14 11:39] LABS: Coronavirus 19 IgG Antibody Negative (Negative); Coronavirus 19 IgM Antibody Negative (Negative)
--- NOTE | 2020-07-14 12:37 | HMH.ANESCL ---
[facility] Anesthesia Checklist - Patient Identification Patient Identification: Arm Band - Structural Data Admitted From: Home Planned Operative Procedure/s: mac Consent for Planned Operative Procedure(s) Verified: Yes Verified Documents: Surgical Consent - Additional verifications Anesthesia Reactions: Yes (nausea) Hx Blood Transfusions: No Blood Transfusion Reaction: No - Anesthesia Plan Anesthesia Risk discussed: Yes Anesthesia Plan: Verified ASA Class: III Anesthesia Type: MAC - Preoperative Comments Pre-Operative Comments: non [facility] History Medical History: Reports:: Anxiety, Atrial Fibrillation, Depression, Diabetes Mellitus Type 2, Hypertension Denies:: Cancer, Diabetes Mellitus Type 1, Internal Pacemaker, MRSA, Seizures *Have you ever received a pneumonia vaccine?: No *Have you received a flu vaccine this season?: Yes Other Medical History: Reports: Arthritis, Thyroid Disease, Other. Denies: Blood Transfusion Reaction Anesthesia experience/problems:: non Laterality Cases: Left: Arthroscopy Knee Other Surgeries: Yes: Bariatric Surgery, Cardiac Catheterization, Cholecystectomy, Colonoscopy, Hysterectomy-Total, Other. No: Pacemaker Amputation: No Fractures: Yes (right first toe fracture) - *Social History Last grade of school completed: High school graduate Smoking Status: Never smoker Alcohol Intake: never Substance Use Type: denies use *Occupational Status:: disabled Housing: house Household Members: spouse *Travel in the last 8 weeks: None - Psychiatric History Pschychiatric History:: Reports:: Anxiety, Depression Family Hx:: Anemia, Cancer, Diabetes, Heart Attack, Hypertension, Thyroid Disorder
[2020-07-14 13:00] VITALS: RESP 24
[2020-07-14 13:30] VITALS: BP 135/65; PULSE 70; RESP 18; TEMP 36.6; O2SAT 96
[2020-07-14 13:45] VITALS: BP 136/68; PULSE 69; RESP 18; O2SAT 97
--- NOTE | 2020-07-14 13:59 | HMH.OPNOTE ---
Date of procedure: 07/14/20 Pre-op Diagnosis:: Degenerative disc disease of lumbar spine with lumbar radiculopathy symptoms and scoliosis Post-op Diagnosis:: Same Procedure performed:: Spinal cord stimulator lead placement epidural x2 Surgeon:: Ned Barnett MD CHIEF INTERNAL AUDITOR:: Other Anesthesia: MAC Estimated blood loss (mL): 1 Clinical Note:: Patient is a pleasant 59-year-old white female who we are treating for low back pain and leg pain. Right leg is worse than left. She has failed all previous conservative treatments including injections, oral medications, physical therapy and she is not a surgical candidate. She has stopped her anticoagulants for 6 days. She presents for spinal cord stimulator trial today with epidural lead placement x2. She is had a successful psychological evaluation. Operative findings:: None Operative note:: Informed consent was obtained the risk and benefits of the procedure were explained to the patient. Patient was taken to the procedure room. The back was prepped using ChloraPrep. The skin and subcutaneous tissues were anesthetized using lidocaine. I placed 17-gauge epidural needle was into the L2-L3 interspace. After confirmation of needle placement in the epidural space stimulating lead was inserted to the T7-T8-T9 vertebral body. Lead placement was checked in AP and lateral views. A second needle was then inserted again into the L2-L3 interspace. Again after confirmation of needle placement in the epidural space a second stimulating lead was inserted and advanced again to the T7-T8-T9 vertebral body. Again lead placement was checked in AP and lateral views. The stylets and needles were removed. The leads were secured in place. The patient was taken recovery in stable condition. The patient tolerated the procedure well with no complications. Patient was programmed by the [employer] canvas products sales representative with good stimulation in all areas of pain. She is put on a paresthesia free fast program. Patient was discharged home neurologically intact with good relief of pain symptoms. Plan and disposition: We will follow-up with this patient in 3 days for reprogramming. We will follow-up in 1 week for lead pull. If the patient has any problems or questions she is to call us back in the back line. Condition: stable Disposition: PACU Complications:: None
[2020-07-14 14:00] VITALS: BP 137/63; PULSE 69; RESP 18; O2SAT 97
[2020-07-14 14:30] VITALS: BP 130/68; PULSE 68; RESP 18; O2SAT 98
== END 2020-07-14 14:30 | disposition home or self-care (01) ==
LOC: OR 10:11
PROVIDERS: PCP Nurse Practitioner; Visit Provider Anesthesiology
DX: M51.16 Intervertebral disc disorders with radiculopathy, lumbar region (principal); M41.9 Scoliosis, unspecified; I48.91 Unspecified atrial fibrillation; E11.9 Type 2 diabetes mellitus without complications; I10 Essential (primary) hypertension; F41.9 Anxiety disorder, unspecified; F32.9 Major depressive disorder, single episode, unspecified; M19.90 Unspecified osteoarthritis, unspecified site; E07.9 Disorder of thyroid, unspecified; Z98.84 Bariatric surgery status; Z90.49 Acquired absence of other specified parts of digestive tract; Z80.9 Family history of malignant neoplasm, unspecified
CPT/HCPCS: 63650 ×2; 36415; 80048; 82962; 85025; 86328; 96374; C1778; J3370

== ENCOUNTER → 2020-07-21 10:17 | Outpatient (POV) | payer MEDICARE, MEDICAID, SELFPAY ==
[2020-07-21 10:39] VITALS: BP 156/73; PULSE 69; RESP 18; TEMP 36.4; O2SAT 98; BMI 35.2
--- NOTE | 2020-07-21 12:17 | P.CONS_ITS ---
[facility] Pain Management SOAP Note Subjective:: Patient is a pleasant 59-year-old white female who is status post spinal cord stimulator trial with [employer] alpha system. She did very well she had 80 to 90% relief in her pain symptoms. She was much more functional. She noticed most difference when she turned her stimulator off and she was unable to walk without having increased pain. This was a successful letter trial. The leads were removed intact with no signs of infection swelling or redness. Band- Aids were placed. We will plan on permanent placement with the [employer] alpha spinal cord stimulator system. Needle entry was at L2-L3 and lead placement was at T7-T8 and T9. Objective:: Oriented x3 in no acute distress. Patient does have an antalgic gait. Motor strength of the lower extremities is 5/5. There is no gross sensory deficit. Final cord stimulator leads were removed intact with no signs of infection redness or swelling. Assessment:: Degenerative disc disease of lumbar spine with lumbar radiculopathy symptoms status post successful spinal cord stimulator trial Plan:: Take approval and plan on permanent placement of spinal cord stimulator system with the [employer] alpha system. This will be with 2 epidural leads at T7-T8 and T9. [facility] History Medical History: Reports:: Anxiety, Atrial Fibrillation, Depression, Diabetes Mellitus Type 2, Hypertension Denies:: Cancer, Diabetes Mellitus Type 1, Internal Pacemaker, MRSA, Seizures *Have you ever received a pneumonia vaccine?: Yes *Have you received a flu vaccine this season?: Yes Other Medical History: Reports: Arthritis, Thyroid Disease, Other. Denies: Blood Transfusion Reaction Laterality Cases: Left: Arthroscopy Knee Other Surgeries: Yes: Bariatric Surgery, Cardiac Catheterization, Cholecystectomy, Colonoscopy, Hysterectomy-Total, Other. No: Pacemaker Amputation: No Fractures: Yes (right first toe fracture) - *Social History Smoking Status: Never smoker Alcohol Intake: never Substance Use Type: denies use *Occupational Status:: other Housing: house Household Members: spouse *Travel in the last 8 weeks: None - Psychiatric History Pschychiatric History:: Reports:: Anxiety, Depression Family Hx:: Anemia, Cancer, Diabetes, Heart Attack, Hypertension, Thyroid Disorder
== END ==
PROVIDERS: PCP Nurse Practitioner; Visit Provider Anesthesiology
DX: M51.16 Intervertebral disc disorders with radiculopathy, lumbar region (principal); Z96.82 Presence of neurostimulator
CPT/HCPCS: 99212; G0463

== ENCOUNTER → 2020-07-27 13:58 | Outpatient (POV) | payer MEDICARE, MEDICAID, SELFPAY ==
[2020-07-27 14:20] VITALS: BP 140/77; PULSE 68; RESP 18; TEMP 36.7; O2SAT 99; BMI 39.9
--- NOTE | 2020-07-27 15:19 | HMH.PAINSOAP ---
[facility] Pain Management SOAP Note Subjective:: Patient is a pleasant 59-year-old white female who is status post spinal cord stimulator trial. Patient has done extremely well getting 90% relief of her pain symptoms. She is much more functional. She is awaiting implant. She rates her pain a 5 out of 10. She has tried and failed multiple modalities of treatment including injections, medications. Patient states her pain is much higher now. She states that she has not been taking all of her prescribed [place]. I encouraged her to do so until she gets implanted. Patient does have a approval for this. Needle entry was at L2-L3 and lead placement at T7-T8-T9 for her trial. ROS General: no recent weight change, no fever, no sleep disturbances Respiratory: no cough, no shortness of air, no recurring pulmonary infections Cardiovascular/Peripheral Vascular: No chest pain, No palpitations, no edema, no shortness of breath. Gastrointestinal: no new onset incontinence, normal bowel movements reported Genitourinary: no new onset incontinence Musculoskeletal: Back pain, leg pain Psychiatric: normal mood/ affect Neurological: [denies new onset weakness in extremities], [denies new onset balance issues] Objective:: Physical Exam General: Alert and oriented x3, no acute distress, pleasant and cooperative, [on room air] Lungs: Resps E/U, Symmetrical chest expansion, Eyes: PERRL Musculoskeletal: Flexion and extension of lumbar spine somewhat guarded secondary to pain, deep tendon reflexes normal, strength in upper and lower extremities [5/5], [abnormal gait noted] Neurological: speech clear, finishing machine operator equal, no gross sensory deficits Assessment:: Degenerative disc disease lumbar spine lumbar radiculopathy symptoms spinal stenosis Plan:: We will move forward with her implant she is on a blood thinner however she has permission to come off prior to her implant. Patient had a successful trial. Again the entry was at L2-L3 and lead placement at was at T7-T8-T9. And I will follow-up with the patient after this reassess her symptoms at that time we discussed the process. Patient's questions were answered. Dr. Barnett has reviewed this note and agrees with this plan of care. This note was dictated using voice recognition software and may contain errors or omissions [facility] History I have reviewed the patient's past medical history: Yes Medical History: Reports:: Anxiety, Atrial Fibrillation, Depression, Diabetes Mellitus Type 2, Hypertension Denies:: Cancer, Diabetes Mellitus Type 1, Internal Pacemaker, MRSA, Seizures *Have you ever received a pneumonia vaccine?: Yes *Have you received a flu vaccine this season?: Yes Other Medical History: Reports: Arthritis, Thyroid Disease, Other. Denies: Blood Transfusion Reaction Laterality Cases: Left: Arthroscopy Knee Other Surgeries: Yes: Bariatric Surgery, Cardiac Catheterization, Cholecystectomy, Colonoscopy, Hysterectomy-Total, Other. No: Pacemaker Amputation: No Fractures: Yes (right first toe fracture) - *Social History Smoking Status: Never smoker Alcohol Intake: never Substance Use Type: denies use *Occupational Status:: other Housing: house Household Members: spouse *Travel in the last 8 weeks: None - Psychiatric History Pschychiatric History:: Reports:: Anxiety, Depression Family Hx:: Anemia, Cancer, Diabetes, Heart Attack, Hypertension, Thyroid Disorder
== END ==
PROVIDERS: PCP Nurse Practitioner; Visit Provider Clinical Nurse Specialist Family Health
DX: M48.061 Spinal stenosis, lumbar region without neurogenic claudication (principal)
CPT/HCPCS: 99212; G0463

== ENCOUNTER → 2020-08-15 11:43 | Outpatient (CLI) | payer MEDICARE, MEDICAID, SELFPAY ==
[2020-08-15 12:07] LABS: Basophils # 0.1 K/mm3 (0-0.2); Basophils % 0.9 % (0.1-2.0); Eosinophils % 16.1 % (0.1-12.0); Hematocrit 41.1 % (37.0-47.0); Hemoglobin 13.1 g/dL (12.2-16.2); Lymphocytes # 1.2 K/mm3 (0.7-4.5); Lymphocytes % 18.5 % (10-50); Mean Corpuscular HGB Conc 31.9 g/dL (31.8-35.4); Mean Corpuscular Hemoglobin 31.2 pg (27.0-31.2); Mean Corpuscular Volume 97.8 fl (81-99); Mean Platelet Volume 8.3 fl (7.4-10.4); Monocytes # 0.3 K/mm3 (0.1-1.0); Monocytes % 4.8 % (1.7-9.3); Neutrophils # 3.7 K/mm3 (1.8-7.8); Neutrophils % 59.7 % (37.0-80.0); Platelet Count 222 K/mm3 (142-424); Red Cell Distribution Width 13.2 % (11.5-17.5); White Blood Count 6.3 K/mm3 (4.8-10.8)
[2020-08-15 12:44] LABS: Chloride 100 mmol/L (98-107); Potassium 3.8 mmoL/L (3.5-5.1); Sodium 141 mmol/L (136-145)
[2020-08-15 12:47] LABS: Blood Urea Nitrogen 30 mg/dl (7-17); Estimated Glomerular Filt Rate 46 ml/min (>60); GFR (African American) 56 ML/MIN (>60)
[2020-08-15 12:48] LABS: Anion Gap 10.8 mEq/L (5-15); Calcium 9.9 mg/dl (8.4-10.2); Carbon Dioxide 34 mmol/L (22.0-30.0); Glucose 111 mg/dl (74-100)
[2020-08-15 13:11] LABS: Coronavirus 19 IgG Antibody Negative (Negative); Coronavirus 19 IgM Antibody Negative (Negative)
== END ==
PROVIDERS: Visit Provider Anesthesiology
DX: Z01.818 Encounter for other preprocedural examination (principal); Z20.822 Contact with and (suspected) exposure to COVID-19; M51.36 Other intervertebral disc degeneration, lumbar region
CPT/HCPCS: 36415; 80048; 85025; 86328

== ENCOUNTER 2020-08-16 09:03 | Day surgery (SDC) | payer MEDICARE, MEDICAID, SELFPAY ==
[2020-08-15 08:43] VITALS: BMI 39.6
[2020-08-16 10:16] VITALS: BP 148/64; PULSE 68; RESP 18; TEMP 36.4; O2SAT 100
--- NOTE | 2020-08-16 12:08 | HMH.PMCON ---
Assessment and Plan - Assessment and plan all Dx Assessment and Plan for all problems:: Impression-degenerative disc disease of the lumbar spine with radiculopathy Plan-placement of pain stimulator system including catheter and leads today HPI - Data of Consult Patient: new to practice Consult date: 08/16/20 Requesting Physician: Ned Barnett MD Primary Care Provider: Gabby London - Consult Narrative Reason for consult: Degenerative disc disease of the lumbar spine with radiculopathy History of present illness: Ms. Wood is a 59 year old female with chronic back pain who had a recent pain stimulator trial with significant improvement. She comes in today for placement of a pain stimulator system CC: Ned Barnett MD [facility] History I have reviewed the patient's past medical history: Yes Medical History: Reports:: Anxiety, Atrial Fibrillation, Depression, Hypertension Denies:: Cancer, Diabetes Mellitus Type 1, Diabetes Mellitus Type 2, Internal Pacemaker, MRSA, Seizures *Have you ever received a pneumonia vaccine?: No *Have you received a flu vaccine this season?: Yes Other Medical History: Reports: Arthritis, Thyroid Disease, Other. Denies: Blood Transfusion Reaction Comment:: Atrial fib, asthma, depression, chronic back pain Laterality Cases: Left: Arthroscopy Knee Other Surgeries: Yes: Bariatric Surgery, Cardiac Catheterization, Cholecystectomy, Colonoscopy, Hysterectomy-Total, Other. No: Pacemaker Amputation: No Fractures: Yes (right first toe fracture) Comment: Operations--cardiac cath, left knee arthroscopy, left knee replacement, lap cholecystectomy, hysterectomy, gastric bypass, cardiac ablation - *Social History Last grade of school completed: High school graduate Smoking Status: Never smoker Alcohol Intake: never Substance Use Type: denies use *Occupational Status:: disabled Housing: house Household Members: spouse *Travel in the last 8 weeks: Inside the [facility] - Psychiatric History Pschychiatric History:: Reports:: Anxiety, Depression Family Hx:: Diabetes, Heart Attack, Hypertension, Thyroid Disorder, Mental illness Review of Systems - Review of Systems Review of systems:: pertinent systems reviewed and negative unless documented below Meds Home Medications Medication Instructions Recorded Confirmed Type cholecalciferol (vitamin D3) 25 1,000 unit PO DAILY 07/23/17 08/15/20 History mcg (1,000 unit) capsule furosemide 40 mg tablet 80 mg PO DAILY 07/23/17 08/15/20 History levothyroxine 100 mcg capsule 125 mcg PO DAILY 07/23/17 08/15/20 History naproxen 500 mg tablet 500 mg PO Q12H PRN 07/23/17 08/15/20 History venlafaxine 75 mg capsule,extended 150 mg PO DAILY 07/23/17 08/15/20 History release 24 hr zinc acetate 50 mg (zinc) capsule 50 mg PO DAILY 07/23/17 08/15/20 History Potassium Chloride [Pot Chlor 10 10 meq PO BID 08/20/17 08/15/20 History mEq Tab] Topiramate 50 mg PO BID 08/20/17 08/15/20 History hydrocodone 7.5 mg-acetaminophen 1 tab PO Q4-6H PRN 09/04/17 08/15/20 History 300 mg tablet Buspirone HCl [Buspar 10mg 10 mg PO BID 05/06/18 08/15/20 History tablet] Ferrous Sulfate [Ferrous Sulfate 325 mg PO DAILY 05/06/18 08/15/20 History 325mg Tablet] Pramipexole Di-HCl [Mirapex 1mg 1 mg PO TID 05/06/18 08/15/20 History tablet] rivaroxaban 10 mg tablet 20 mg PO DAILY 08/12/19 08/15/20 History Escitalopram Oxalate [Lexapro] 10 mg PO DAILY 05/28/20 08/15/20 History Melatonin 1 mg PO DAILY 05/28/20 08/15/20 History Pantoprazole Sodium 40 mg PO DAILY 05/28/20 08/15/20 History Sulfamethoxazole/Trimethoprim 1 each PO BID #14 tab 08/16/20 Rx [Bactrim DS tablet] Allergies Allergy/AdvReac Type Severity Reaction Status Date / Time hyaluronic acid AdvReac Severe Verified 07/21/20 10:38 [From Caty] Objective Vital signs: Temp Pulse Resp BP Pulse Ox 97.6 F 68 18 148/64 H 100 08/16/20 10:16 08/16/20 10:16 08/16/20 10:16 07/31
--- NOTE | 2020-08-16 12:19 | P.OP_ITS ---
Date of procedure: 08/16/20 Pre-op Diagnosis:: Degenerative disc disease of lumbar spine with lumbar radiculopathy symptoms and scoliosis Post-op Diagnosis:: Same Procedure performed:: Spinal cord stimulator lead placement epidural x2 for permanent spinal cord stimulator placement Surgeon:: Ned Barnett MD SIMULATION DEVELOPER:: Other Anesthesia: MAC Estimated blood loss (mL): 5 Clinical Note:: The patient is a pleasant 59-year-old white female who we are treating for low back pain and leg pain. Her right side is worse than her left. She has failed all previous conservative treatments including injections, oral medications, physical therapy and she is not a surgical candidate. She has had a successful psychological evaluation and a successful spinal cord stimulator trial. She had 80 to 90% relief of her pain symptoms after her spinal cord stimulator trial. She has been off of her blood thinners for 7 days. She presents for permanent placement of her spinal cord stimulator today. Operative findings:: None Operative note:: Informed consent was obtained and the risk and benefits of the procedure were explained to the patient. Patient was taken to the operating room placed prone on the procedure table. She was prepped and draped in sterile fashion. C-arm fluoroscopy was used to view the lumbar spine. The skin and subcutaneous tissues adjacent to the L2-L3 and L3-L4 interspace were anesthetized using lidocaine. I made an incision adjacent to the L2-L3 and L3-L4 interspace and dissected down to the lumbar paraspinous fascia. A 17-gauge epidural needle was inserted and advanced into the L2-L3 interspace. After confirmation of needle placement in the epidural space stimulating lead was inserted and advanced very easily to the T7-T8 vertebral bodies. This was an 8 contact compact lead. Lead placement was checked in AP and lateral views. A second needle was inserted and advanced again into the L2-L3 interspace. Again after confirmation of needle placement in the epidural space a stimulating lead was inserted and advanced again very easily to the T7-T8 vertebral bodies. Again this was an 8 contact compact lead. Again lead placement is checked in AP and lateral views. The stylets and needles were removed. The leads were secured to the fascia with anchor devices and 2-[address] Cisneros created the generator pocket. I tunneled the leads from the back to the generator pocket and attached the leads to the generator. Impedances were checked and found to be okay. Both incisions were irrigated with bacitracin solution. Both incisions were then closed with 2-0 Vicryl followed by 4-0 nylon. A wound VAC was placed over both incisions. The patient was distended abdominal binder taken recovery stable condition. Patient tolerated the procedure well with no complications. Patient was programmed by the [employer] sales representative and placed on a paresthesia free FAST program. Patient was discharged home neurologically intact with good relief of pain symptoms. Plan and disposition: We will follow-up with this patient in 1 week for wound check and reprogramming. We will follow-up in 2 weeks for suture removal. If she has any problems or questions she is to call us back in the pain clinic. Condition: stable Disposition: PACU Complications:: None
--- NOTE | 2020-08-16 12:33 | P.PN_ITS ---
[facility] Anesthesia Checklist - Patient Identification Patient Identification: Arm Band, Verbal (Name & ) - Structural Data Admitted From: Home Planned Operative Procedure/s: nerve stimulator Consent for Planned Operative Procedure(s) Verified: Yes Verified Documents: Surgical Consent - Additional verifications Anesthesia Reactions: Yes (nausea) Hx Blood Transfusions: No Blood Transfusion Reaction: No - Anesthesia Plan Anesthesia Plan: Verified ASA Class: III Anesthesia Type: MAC [facility] History Medical History: Reports:: Anxiety, Atrial Fibrillation, Depression, Hypertension Denies:: Cancer, Diabetes Mellitus Type 1, Diabetes Mellitus Type 2, Internal Pacemaker, MRSA, Seizures *Have you ever received a pneumonia vaccine?: No *Have you received a flu vaccine this season?: Yes Other Medical History: Reports: Arthritis, Thyroid Disease, Other. Denies: Blood Transfusion Reaction Anesthesia experience/problems:: none Laterality Cases: Left: Arthroscopy Knee Other Surgeries: Yes: Bariatric Surgery, Cardiac Catheterization, Cholecyst ectomy, Colonoscopy, Hysterectomy-Total, Other. No: Pacemaker Amputation: No Fractures: Yes (right first toe fracture) - *Social History Last grade of school completed: High school graduate Smoking Status: Never smoker Alcohol Intake: never Substance Use Type: denies use *Occupational Status:: disabled Housing: house Household Members: spouse *Travel in the last 8 weeks: Inside the [place] - Psychiatric History Pschychiatric History:: Reports:: Anxiety, Depression Family Hx:: Diabetes, Heart Attack, Hypertension, Thyroid Disorder, Mental illness
--- NOTE | 2020-08-16 13:21 | P.OP_ITS ---
Date of procedure: 08/16/20 Pre-op Diagnosis:: Degenerative disc disease of the lumbar spine with radiculopathy Post-op Diagnosis:: Same Procedure performed:: Placement of pain stimulator generator Surgeon:: Zackery Cisneros MD CLIENT REPORTING ASSOCIATE:: Marcos Velasco, Ulises Simmons, Reji Cevallos, Felix Gaston, Other Anesthesia: MAC, local Estimated blood loss (mL): 15 Operative findings:: Not applicable Operative note:: Patient was placed prone on the operating table and her back and flank regions were prepped and draped in sterile fashion. Once adequate IV sedation was obtained via anesthesia and local anesthesia lysing 1% Xylocaine with epinephrine a paraspinal incision was made by Dr. Kathleen there which 2 epidural leads were placed in the epidural space to the area desired by Dr. Kathleen. The leads were then fixed the paraspinal fascia with fixation devices and 2-0 Prolene sutures. A right flank incision was then made under which made a pocket for placement of the generator. Utilizing the tunneling device the cath the leads were passed from the paraspinal incision to the pocket incision. Both pockets irrigated with antibiotic solution. The leads and connected to the generator which was placed in the pocket. System noted to be functioning properly. Subcutaneous tissues closed with 2-0 Vicryl. Skin closed arm stitches of 4-0 nylon. Wound VAC dressings and a binder applied to the wound. The patient taught procedure well was taken recovery in stable condition. Upon recovery the patient will be discharged home and will follow up in 1 week remove the wound VAC system in 2 weeks remove the sutures. Antibiotics x1 week per protocol. The patient tolerated the procedure well Condition: stable Disposition: PACU Complications:: None
[2020-08-16 13:35] VITALS: BP 136/81; PULSE 72; RESP 18; TEMP 36.3; O2SAT 97
[2020-08-16 13:50] VITALS: BP 137/75; PULSE 63; RESP 18; TEMP 36.3; O2SAT 98
[2020-08-16 14:05] VITALS: BP 123/71; PULSE 66; RESP 18; TEMP 36.3; O2SAT 99
[2020-08-16 14:20] VITALS: BP 140/80; PULSE 63; RESP 18; TEMP 36.3; O2SAT 94
[2020-08-16 14:39] VITALS: BP 113/75; PULSE 60; RESP 18; TEMP 36.3; O2SAT 94
== END 2020-08-16 14:41 | disposition home or self-care (01) ==
LOC: OR 09:04
PROVIDERS: PCP Nurse Practitioner; Visit Provider Anesthesiology
PROC: (CPT 63650; principal; 2020-08-16 10:45)
DX: M51.16 Intervertebral disc disorders with radiculopathy, lumbar region (principal); F41.9 Anxiety disorder, unspecified; I48.91 Unspecified atrial fibrillation; F32.9 Major depressive disorder, single episode, unspecified; I10 Essential (primary) hypertension; M19.90 Unspecified osteoarthritis, unspecified site; E07.9 Disorder of thyroid, unspecified; Z79.899 Other long term (current) drug therapy; Z83.3 Family history of diabetes mellitus; Z82.49 Family history of ischemic heart disease and other diseases of the circulatory system; Z81.8 Family history of other mental and behavioral disorders; Z88.8 Allergy status to other drugs, medicaments and biological substances
CPT/HCPCS: 63650 ×2; 63685; 96374; C1778; C1820; J3370

== ENCOUNTER → 2020-08-24 15:18 | Outpatient (POV) | payer MEDICARE, MEDICAID, SELFPAY ==
[2020-08-24 15:58] VITALS: BP 128/74; PULSE 88; RESP 18; O2SAT 98; BMI 39.6
--- NOTE | 2020-08-24 16:10 | HMH.PAINSOAP ---
[facility] Pain Management SOAP Note Subjective:: Patient is a 59-year-old white female who presents today for follow-up after her spinal cord stimulator implant. She has been treated for chronic pain secondary to degenerative disc disease lumbar spine with lumbar radiculopathy symptoms. Patient rates her pain a 2 out of 10 today. She did receive reprogramming with the [employer] spinal cord stimulator this past week. She says that she is getting good relief. She will have her wound VAC removed today. She does report some incisional pain today. Otherwise, the patient says she is doing well. Review of Systems General: No recent weight changes, no fever, no sleep disturbances Respiratory: No cough, no shortness of air, no recurring pulmonary infections Cardiovascular/peripheral vascular: No chest pain, no palpitations, no edema, no shortness of breath Gastrointestinal: No new onset incontinence, normal bowel movements reported Genitourinary: No new onset incontinence Musculoskeletal: Incisional pain Psychiatric: Normal mood/affect Neurological: [Denies weakness in extremities], [denies balance issues] Objective:: Physical exam General: Alert and oriented x3, no acute distress, pleasant and cooperative, [on room air] Lungs: Respirations even and unlabored, symmetrical chest expansion Eyes: PERRL Musculoskeletal: Flexion and extension of lumbar spine somewhat guarded secondary to pain, deep tendon reflexes normal, strength in upper and lower extremities [5/5], [abnormal gait noted] Neurological: Speech clear, steel sampler equal, no gross sensory deficit Integumentary: Wound VAC removed. Incision well approximated, no redness, no drainage, no edema noted to site. Sutures open to air and intact Assessment:: Degenerative disc disease lumbar spine with lumbar radiculopathy symptoms Plan:: We will plan to see the patient back in the clinic in 2 weeks to reevaluate her symptoms and remove her sutures at that time. Patient is doing well overall. She has been instructed to contact clinic if she has any concerns before next appointment. The patient and I specifically discussed risk factors for COVID19. These risks include, but are not limited to age greater than 60, heart or lung disease, diabetes, immunosuppression, and travel. We also discussed NSAIDs may worsen COVID19 infection or symptoms. Patient should not use NSAIDs to treat COVID19 signs or symptoms. Patient was also informed that any type of corticosteroid of any form (oral or injection) will decrease the patient's immune system response and may increase the likelihood of COVID19 infection and symptoms[address] Dr. Barnett has reviewed this note and agrees with this plan of care. This note was dictated using voice recognition software and make contain errors or omissions. [facility] History I have reviewed the patient's past medical history: Yes Medical History: Reports:: Anxiety, Atrial Fibrillation, Depression, Hypertension Denies:: Cancer, Diabetes Mellitus Type 1, Diabetes Mellitus Type 2, Internal Pacemaker, MRSA, Seizures *Have you ever received a pneumonia vaccine?: Yes *Have you received a flu vaccine this season?: Yes Other Medical History: Reports: Arthritis, Thyroid Disease, Other. Denies: Blood Transfusion Reaction Laterality Cases: Left: Arthroscopy Knee Other Surgeries: Yes: Bariatric Surgery, Cardiac Catheterization, Cholecystectomy, Colonoscopy, Hysterectomy-Total, Other. No: Pacemaker Amputation: No Fractures: Yes (right first toe fracture) - *Social History Smoking Status: Never smoker Alcohol Intake: never Substance Use Type: denies use *Occupational Status:: other Housing: house Household Members: spouse *Travel in the last 8 weeks: None - Psychiatric History Pschychiatric History:: Reports:: Anxiety, Depression Family Hx:: Diabetes, Heart Attack, Hypertension, Thyroid Disorder, Mental illness
== END ==
PROVIDERS: PCP Nurse Practitioner; Visit Provider Clinical Nurse Specialist Family Health
DX: M51.16 Intervertebral disc disorders with radiculopathy, lumbar region (principal)
CPT/HCPCS: 99212; G0463

== ENCOUNTER → 2020-09-07 13:50 | Outpatient (POV) | payer MEDICARE, MEDICAID, SELFPAY ==
[2020-09-07 14:10] VITALS: BP 151/93; PULSE 68; RESP 20; TEMP 36.2; O2SAT 100; BMI 39.6
--- NOTE | 2020-09-07 14:26 | HMH.PAINSOAP ---
[facility] Pain Management SOAP Note Subjective:: Patient is a pleasant 59-year-old white female who presents today for follow-up after her spinal cord stimulator implant. She is being treated for chronic low back pain secondary to degenerative disc disease lumbar spine with lumbar radiculopathy symptoms. She rates the pain a 5 out of 10 however she does need a reprogramming. Her sutures have been removed her sites are well-healed no sign symptoms of infection. Patient overall doing well. She states that she is moving forward with being more active. ROS General: no recent weight change, no fever, no sleep disturbances Respiratory: no cough, no shortness of air, no recurring pulmonary infections Cardiovascular/Peripheral Vascular: No chest pain, No palpitations, no edema, no shortness of breath. Gastrointestinal: no new onset incontinence, normal bowel movements reported Genitourinary: no new onset incontinence Musculoskeletal: Back pain, leg pain Psychiatric: normal mood/ affect Neurological: [denies new onset weakness in extremities], [denies new onset balance issues] Objective:: Physical Exam General: Alert and oriented x3, no acute distress, pleasant and cooperative, [on room air] Lungs: Resps E/U, Symmetrical chest expansion, Eyes: PERRL Musculoskeletal: Flexion and extension of lumbar spine somewhat guarded secondary to pain, deep tendon reflexes normal, strength in upper and lower extremities [5/5], [abnormal gait noted] Neurological: speech clear, can striper equal, no gross sensory deficits Assessment:: Degenerative disc disease lumbar spine lumbar radiculopathy, back pain Plan:: We will see the patient back in 3 months reassess her symptoms at that time she has been instructed to call the office if she has any issues prior to her next appointment. Dr. Barnett has reviewed this note and agrees with this plan of care. This note was dictated using voice recognition software and may contain errors or omissions [facility] History I have reviewed the patient's past medical history: Yes Medical History: Reports:: Anxiety, Atrial Fibrillation, Depression, Hypertension Denies:: Cancer, Diabetes Mellitus Type 1, Diabetes Mellitus Type 2, Internal Pacemaker, MRSA, Seizures *Have you ever received a pneumonia vaccine?: Yes *Have you received a flu vaccine this season?: Yes Other Medical History: Reports: Arthritis, Thyroid Disease, Other. Denies: Blood Transfusion Reaction Laterality Cases: Left: Arthroscopy Knee Other Surgeries: Yes: Bariatric Surgery, Cardiac Catheterization, Cholecystectomy, Colonoscopy, Hysterectomy-Total, Other. No: Pacemaker Amputation: No Fractures: Yes (right first toe fracture) - *Social History Smoking Status: Never smoker Alcohol Intake: never Substance Use Type: denies use *Occupational Status:: other Housing: house Household Members: spouse *Travel in the last 8 weeks: None - Psychiatric History Pschychiatric History:: Reports:: Anxiety, Depression Family Hx:: Diabetes, Heart Attack, Hypertension, Thyroid Disorder, Mental illness
== END ==
PROVIDERS: PCP Nurse Practitioner; Visit Provider Clinical Nurse Specialist Family Health
DX: M51.16 Intervertebral disc disorders with radiculopathy, lumbar region (principal); Z98.890 Other specified postprocedural states
CPT/HCPCS: 99213; G0463

== ENCOUNTER → 2020-10-02 10:15 | Outpatient (POV) | payer MEDICARE, MEDICAID, SELFPAY ==
--- NOTE | 2020-10-02 10:56 | XR_ITS ---
PROCEDURE: XR MULTIPLE SPINE 6+V CLINICAL INDICATION: BACK PAIN/HX OF COMPRESSION FX COMPARISON: No exams were available for comparison FINDINGS: Thoracic spine: Mild thoracic scoliosis convex right. Epidural neurostimulator device is present with the leads terminating superiorly at the T10 level. Mild degenerative changes of the midthoracic spine with small anterior osteophytes at T7-T8. No acute fracture or dislocation. On the swimmer's view there is flexion of the cervical spine with 4 mm anterolisthesis of C4 on C5 with degenerative disc disease at C5-C6 and C6-C7. Lumbar spine: Mild lumbar scoliosis convex left with degenerative disc disease at L2-L3 L3-L4 and L4-5. There is 8 mm anterolisthesis of L5 on S1 with degenerative disc disease also at that level. No acute fracture. There are degenerative changes in the SI joints IMPRESSION: 1. 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 Please see above for detail 2. Degenerative changes of the SI joints Dictated by: Charly De Anda MD 10/02/2020 15:04 Charly De Anda MD in [place] 10/02/2020 15:04
--- NOTE | 2020-10-02 12:11 | P.CONS_ITS ---
[facility] Pain Management SOAP Note Subjective:: Patient is a pleasant 59-year-old white female presents today for follow-up. Patient is in extreme discomfort at this moment. She rates her pain a 10 out of 10. She was leaning forward and she felt something pop in her lower back she has had extreme pain since. Patient has a history of compression fractures. Patient sites and incisions where her stimulator was placed are healed with no sign symptoms of infection. Patient will be sent for x-rays today. We will also start her on some prednisone. ROS General: no recent weight change, no fever, no sleep disturbances Respiratory: no cough, no shortness of air, no recurring pulmonary infections Cardiovascular/Peripheral Vascular: No chest pain, No palpitations, no edema, no shortness of breath. Gastrointestinal: no new onset incontinence, normal bowel movements reported Genitourinary: no new onset incontinence Musculoskeletal: Back pain, leg pain Psychiatric: normal mood/ affect Neurological: [denies new onset weakness in extremities], [denies new onset balance issues] Objective:: Physical Exam General: Alert and oriented x3, no acute distress, pleasant and cooperative, [on room air] Lungs: Resps E/U, Symmetrical chest expansion, Eyes: PERRL Musculoskeletal: Flexion and extension of lumbar spine somewhat guarded secondary to pain, deep tendon reflexes normal, strength in upper and lower extremities [5/5], [abnormal gait noted] Neurological: speech clear, telesales supervisor equal, no gross sensory deficits Assessment:: Acute back pain, degenerative disc disease lumbar spine lumbar radiculopathy Plan:: We will schedule the patient for x-rays at this time of lumbar and thoracic spine to help determine pathology of pain we will also start on prednisone 20 mg 1 p.o. twice daily. Patient's been instructed to call our office on Friday if she still having pain we will see her . I will review her x-rays when available. Dr. Barnett has reviewed this note and agrees with this plan of care. This note was dictated using voice recognition software and may contain errors or omissions [facility] History I have reviewed the patient's past medical history: Yes Medical History: Reports:: Anxiety, Atrial Fibrillation, Depression, Hypertension Denies:: Cancer, Diabetes Mellitus Type 1, Diabetes Mellitus Type 2, Internal Pacemaker, MRSA, Seizures *Have you ever received a pneumonia vaccine?: Yes *Have you received a flu vaccine this season?: Yes Other Medical History: Reports: Arthritis, Thyroid Disease, Other. Denies: Blood Transfusion Reaction Laterality Cases: Left: Arthroscopy Knee Other Surgeries: Yes: Bariatric Surgery, Cardiac Catheterization, Cholecystectomy, Colonoscopy, Hysterectomy-Total, Other. No: Pacemaker Amputation: No Fractures: Yes (right first toe fracture) - *Social History Smoking Status: Never smoker Alcohol Intake: never Substance Use Type: denies use *Occupational Status:: other Housing: house Household Members: spouse *Travel in the last 8 weeks: None - Psychiatric History Pschychiatric History:: Reports:: Anxiety, Depression Family Hx:: Diabetes, Heart Attack, Hypertension, Thyroid Disorder, Mental il lness
[2020-10-02 12:29] VITALS: BP 137/85; PULSE 64; RESP 18; O2SAT 98; BMI 39.6
== END ==
PROVIDERS: PCP Nurse Practitioner; Visit Provider Clinical Nurse Specialist Family Health
DX: R52 Pain, unspecified (principal); M51.16 Intervertebral disc disorders with radiculopathy, lumbar region; Z87.39 Personal history of other diseases of the musculoskeletal system and connective tissue
CPT/HCPCS: 72084; 99212; G0463

== ENCOUNTER → 2020-10-06 11:02 | Day surgery (SDC) | payer MEDICARE, MEDICAID, SELFPAY ==
[2020-10-06 11:50] VITALS: BP 158/74; PULSE 62; RESP 20; TEMP 36.6; O2SAT 100; BMI 39.4
[2020-10-06 12:08] VITALS: BP 125/78; BP 128/89; PULSE 77; PULSE 85; RESP 18; O2SAT 98
--- NOTE | 2020-10-06 12:10 | HMH.PMPROC ---
- Procedure Date: 10/06/20 Time: 12:10 Anesthesiologist:: Ned Barnett MD Complications:: None Pre-procedure Diagnosis:: Sacroiliitis Post-procedure Diagnosis:: Same Indications for Procedure:: This patient is a pleasant 59-year-old white female who we are treating for right-sided hip pain. She is tender over the right SI joint. She does have a positive Eber's test on the right side. She has a positive Galina test on the right side. She has positive SI joint compression test on the right side. We will do a right SI joint injection today under fluoroscopy to help her with her pain symptoms. She has been on prednisone orally which is not helped her with her pain symptoms. She also has a spinal cord stimulator in place which works fine for her back pain but is not helped her hip pain. Her x-ray showed no acute changes throughout her lumbar spine however it did comment on inflammation in the SI joints. Procedure Details:: Right SI joint injection under fluoroscopy Informed consent was obtained and the risks and benefits of the procedure was going to the patient. Patient was taken to the procedure room. Patient was placed prone on the procedure table. The right hip was prepped using ChloraPrep. The skin and subcutaneous tissues were anesthetized using lidocaine. I placed a 22-gauge spinal needle into the inferior aspect of the right SI joint. Needle placement was confirmed with dye. After this we injected 5 mL bupivacaine 0.25% and Depo-Medrol 40 mg into the right SI joint. The patient tolerated the procedure well with no complication. Plan and Disposition:: We will follow-up with her in 2 weeks. Will reevaluate symptoms at that time.
== END ==
PROVIDERS: PCP Family Medicine; Visit Provider Anesthesiology
DX: M46.1 Sacroiliitis, not elsewhere classified (principal); I10 Essential (primary) hypertension; I25.10 Atherosclerotic heart disease of native coronary artery without angina pectoris; Z45.1 Encounter for adjustment and management of infusion pump
CPT/HCPCS: 27096; G0260; J1040; Q9966

== ENCOUNTER → 2020-10-19 13:01 | Outpatient (POV) | payer MEDICARE, MEDICAID, SELFPAY ==
[2020-10-19 13:25] VITALS: BP 142/78; PULSE 85; RESP 18; TEMP 36.8; O2SAT 98; BMI 38.0
--- NOTE | 2020-10-19 14:05 | P.CONS_ITS ---
[facility] Pain Management SOAP Note Subjective:: Patient is a pleasant 59-year-old white female who presents today for follow-up after right SI joint injection. Patient is doing extremely well. She rates her pain a 2 out of 10. Patient is still having some residual pain in her right SI joint. Patient has a positive Eber's test Galina test SI joint compression test and distraction test on that side. She is interested in repeating the injection 1 more time to get full results. Patient does have a neurostimulator which she states she is using sparingly at this time due to the relief that she got from her injective therapy. ROS General: no recent weight change, no fever, no sleep disturbances Respiratory: no cough, no shortness of air, no recurring pulmonary infections Cardiovascular/Peripheral Vascular: No chest pain, No palpitations, no edema, no shortness of breath. Gastrointestinal: no new onset incontinence, normal bowel movements reported Genitourinary: no new onset incontinence Musculoskeletal: Right SI joint pain Psychiatric: normal mood/ affect Neurological: [denies new onset weakness in extremities], [denies new onset balance issues] Objective:: Physical Exam General: Alert and oriented x3, no acute distress, pleasant and cooperative, [on room air] Lungs: Resps E/U, Symmetrical chest expansion, Eyes: PERRL Musculoskeletal: Flexion and extension of lumbar spine somewhat guarded secondary to pain, deep tendon reflexes normal, strength in upper and lower extremities [5/5], antalgic gait noted Neurological: speech clear, 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 Given the efficacy of this in the past I do believe it would benefit her. She has been instructed to call the office if she has any issues prior to her next appointment. Dr. Barnett has reviewed this note and agrees with this plan of care. This note was dictated using voice recognition software and may contain errors or omissions [facility] History I have reviewed the patient's past medical history: Yes Medical History: Reports:: Anxiety, Atrial Fibrillation, Depression, Hypertension Denies:: Cancer, Diabetes Mellitus Type 1, Diabetes Mellitus Type 2, Internal Pacemaker, MRSA, Seizures *Have you ever received a pneumonia vaccine?: Yes *Have you received a flu vaccine this season?: Yes Other Medical History: Reports: Arthritis, Hypothyroidism, Thyroid Disease, Other. Denies: Blood Transfusion Reaction Laterality Cases: Left: Arthroscopy Knee Other Surgeries: Yes: Bariatric Surgery, Cardiac Catheterization, Cholecystectomy, Colonoscopy, Hysterectomy-Total, Other (neurostimulator implant). No: Pacemaker Amputation: No Fractures: Yes (right first toe fracture) - *Social History Smoking Status: Never smoker Alcohol Intake: never Substance Use Type: denies use *Occupational Status:: other Housing: house Household Members: spouse *Travel in the last 8 weeks: None - Psychiatric History Pschychiatric History:: Reports:: Anxiety, Depression Family Hx:: Diabetes, Heart Attack, Hypertension, Thyroid Disorder, Mental illness
== END ==
PROVIDERS: PCP Family Medicine; Visit Provider Clinical Nurse Specialist Family Health
DX: M46.1 Sacroiliitis, not elsewhere classified (principal)
CPT/HCPCS: 99212; G0463

== ENCOUNTER → 2020-11-06 11:11 | Outpatient (POV) | payer MEDICARE, MEDICAID, SELFPAY ==
[2020-11-06 11:17] VITALS: BP 133/79; PULSE 68; RESP 18; O2SAT 98; BMI 38.0
--- NOTE | 2020-11-06 12:11 | HMH.PAINSOAP ---
[facility] Pain Management SOAP Note Subjective:: Is a pleasant 59-year-old white female who presents today for follow-up. Patient had a right SI joint injection she is still having some relief from this. She does rate her pain a 6 out of 10. This is more in the musculature of her right buttocks. Patient has extreme point tenderness over her right piriformis muscle. Patient and I discussed trigger point injection she is agreeable. Patient does have a neurostimulator which is still providing quite a bit of relief for other areas of her body. ROS General: no recent weight change, no fever, no sleep disturbances Respiratory: no cough, no shortness of air, no recurring pulmonary infections Cardiovascular/Peripheral Vascular: No chest pain, No palpitations, no edema, no shortness of breath. Gastrointestinal: no new onset incontinence, normal bowel movements reported Genitourinary: no new onset incontinence Musculoskeletal: Myofascial pain piriformis pain Psychiatric: normal mood/ affect, Neurological: [denies new onset weakness in extremities], [denies new onset balance issues] Objective:: Physical Exam General: Alert and oriented x3, no acute distress, pleasant and cooperative, [on room air] Lungs: Resps E/U, Symmetrical chest expansion, Eyes: PERRL Musculoskeletal: Flexion and extension of lumbar spine somewhat guarded secondary to pain, deep tendon reflexes normal, strength in upper and lower extremities [5/5], [abnormal gait noted] Neurological: speech clear, template fitter equal, no gross sensory deficits Assessment:: Myofascial pain syndrome, piriformis syndrome, sacroiliitis Plan:: We will plan a piriformis trigger point injection for the patient. I will follow-up with her after this reassess her symptoms at that time she has been instructed to call the office if she has any issues prior to her next appointment. Dr. Barnett has reviewed this note and agrees with this plan of care. This note was dictated using voice recognition software and may contain errors or omissions [facility] History I have reviewed the patient's past medical history: Yes Medical History: Reports:: Anxiety, Atrial Fibrillation, Depression, Hypertension Denies:: Cancer, Diabetes Mellitus Type 1, Diabetes Mellitus Type 2, Internal Pacemaker, MRSA, Seizures *Have you ever received a pneumonia vaccine?: Yes *Have you received a flu vaccine this season?: Yes Other Medical History: Reports: Arthritis, Hypothyroidism, Thyroid Disease, Other. Denies: Blood Transfusion Reaction Laterality Cases: Left: Arthroscopy Knee Other Surgeries: Yes: Bariatric Surgery, Cardiac Catheterization, Cholecystectomy, Colonoscopy, Hysterectomy-Total, Other (neurostimulator implant). No: Pacemaker Amputation: No Fractures: Yes (right first toe fracture) - *Social History Smoking Status: Never smoker Alcohol Intake: never Substance Use Type: denies use *Occupational Status:: other Housing: house Household Members: spouse *Travel in the last 8 weeks: None - Psychiatric History Pschychiatric History:: Reports:: Anxiety, Depression Family Hx:: Diabetes, Heart Attack, Hypertension, Thyroid Disorder, Mental illness
== END ==
PROVIDERS: PCP Family Medicine; Visit Provider Clinical Nurse Specialist Family Health
DX: M79.18 Myalgia, other site (principal); G57.00 Lesion of sciatic nerve, unspecified lower limb; M46.1 Sacroiliitis, not elsewhere classified
CPT/HCPCS: 99212; G0463

== ENCOUNTER 2020-11-17 10:47 | Day surgery (SDC) | payer MEDICARE, MEDICAID, SELFPAY ==
[2020-11-17 11:04] VITALS: BP 196/91; PULSE 59; RESP 16; TEMP 36.3; O2SAT 100; BMI 38.0
[2020-11-17 11:29] VITALS: BP 133/78; PULSE 85; RESP 18; O2SAT 98
[2020-11-17 11:30] VITALS: BP 138/89; PULSE 89; RESP 18; O2SAT 98
--- NOTE | 2020-11-17 11:46 | HMH.PMPROC ---
- Procedure Date: 11/17/20 Time: 11:46 Anesthesiologist:: Ned Barnett MD Complications:: None Pre-procedure Diagnosis:: Sacroiliitis and piriformis syndrome right side Post-procedure Diagnosis:: Same Indications for Procedure:: This patient is a pleasant 59-year-old white female who we are treating for right-sided sacroiliitis and piriformis syndrome. She does have a spinal cord stimulator in place. She is doing well with her stimulator. She did well with her previous right SI joint injection. We will do a right piriformis muscle injection today as she is having some issues over the piriformis muscle and down her right leg. Procedure Details:: Trigger point injections x1 to the right piriformis muscle Informed consent was obtained risk and benefits of the procedure were explained to the patient. Patient was taken the procedure room. The right buttock was prepped using ChloraPrep. A 25-gauge needle was used we injected 10 mL bupivacaine 0.25% and Depo-Medrol 40 mg into the right piriformis muscle. Patient tolerated procedure well with no complications. Plan and Disposition:: We will follow-up with her in 2 weeks. Will reevaluate her symptoms at that time.
[2020-11-17 11:50] VITALS: BP 136/76; PULSE 52; RESP 18; O2SAT 100
== END 2020-11-17 11:50 | disposition home or self-care (01) ==
LOC: SC.PAINP 10:48
PROVIDERS: PCP Family Medicine; Visit Provider Anesthesiology
DX: M46.1 Sacroiliitis, not elsewhere classified (principal); G57.01 Lesion of sciatic nerve, right lower limb; Z96.82 Presence of neurostimulator; I48.91 Unspecified atrial fibrillation; I10 Essential (primary) hypertension; M19.90 Unspecified osteoarthritis, unspecified site; E78.5 Hyperlipidemia, unspecified; G43.909 Migraine, unspecified, not intractable, without status migrainosus; Z88.8 Allergy status to other drugs, medicaments and biological substances
CPT/HCPCS: 20552; J1030

== ENCOUNTER → 2020-11-28 16:13 | Outpatient (CLI) | payer MEDICARE, MEDICAID, SELFPAY ==
--- NOTE | 2020-11-28 16:24 | XR_ITS ---
PROCEDURE: XR ANKLE RT MIN 3V CLINICAL INDICATION: PAIN IN RT ANKLE AND JOINTS OF RT FOOT COMPARISON: CR ANKR3 ANKLE-RT-3 VIEWS from 06/03/2015 FINDINGS: No fracture or dislocation. No lytic or blastic change. There is normal mineralization. The ankle joint has an unremarkable appearance. Degenerative changes are present in the midfoot. There is a mildly prominent calcaneal spur. Other findings:None. IMPRESSION: No acute findings. Dictated by: Charly De Anda MD 11/28/2020 18:25 Charly De Anda MD in [place] 11/28/2020 18:25
== END ==
PROVIDERS: PCP Family Medicine; Visit Provider Family Medicine
DX: M25.571 Pain in right ankle and joints of right foot (principal)
CPT/HCPCS: 73610

== ENCOUNTER → 2020-12-14 10:50 | Outpatient (POV) | payer MEDICARE, MEDICAID, SELFPAY ==
[2020-12-14 10:58] VITALS: BP 142/84; PULSE 66; RESP 20; O2SAT 98; BMI 37.5
--- NOTE | 2020-12-14 13:39 | HMH.PAINSOAP ---
[facility] Pain Management SOAP Note Subjective:: Patient is a 60-year-old white female who presents today for follow-up after right SI joint injection and a right piriformis injection. Patient is being treated for chronic right sacroiliitis and piriformis pain syndrome. She also has severe right knee pain at this time. She did contact the clinic to see if she could undergo an injection tomorrow. Patient I did discuss we would need to get approval by her insurance before proceeding with the injection to her right knee. She rates her pain at 7 out of 10 to her right knee and a 3 out of 10 at this time to her low back in comparison to her knee. She says that the pain in her right low back area is starting to return. She got significant relief with her previous injections up to 70% relief for more than 2 weeks. Unfortunately, the pain is starting to return. She is uncertain if her right knee pain is contributing to her worsening low back pain. She says the pain is worse with standing and walking and does not improve with sitting. She is continuing with home stretching program. Is also tried anti-inflammatories. She has tried physical therapy in the past with no significant relief for greater than 6 weeks. Review of Systems General: No recent weight changes, no fever, no sleep disturbances Respiratory: No cough, no shortness of air, no recurring pulmonary infections Cardiovascular/peripheral vascular: No chest pain, no palpitations, no edema, no shortness of breath Gastrointestinal: No new onset incontinence, normal bowel movements reported Genitourinary: No new onset incontinence Musculoskeletal: Right knee pain, right low back pain and right buttock pain Psychiatric: Normal mood/affect Neurological: [Denies weakness in extremities], [denies balance issues] Objective:: Physical exam General: Alert and oriented x3, no acute distress, pleasant and cooperative, [on room air] Lungs: Respirations even and unlabored, symmetrical chest expansion Eyes: PERRL Musculoskeletal: Flexion and extension of lumbar spine somewhat guarded secondary to pain, deep tendon reflexes normal, strength in upper and lower extremities [4/5], [abnormal gait noted] Neurological: Speech clear, polls or surveys 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 She has had injections in her right knee in the past which is giving her about 60 to 70% relief for greater than 2 weeks. Following her knee injection, we will schedule her for right SI joint injection and possible right piriformis injection if she is still having pain in her right buttock. We will follow-up with her after her injection to reevaluate her symptoms. Risks and benefits of the procedure have been explained to the patient. Patient would like to proceed with the procedure. Possible side effects of corticosteroids have been discussed with the patient. Patient has been instructed to contact the clinic with any concerns before the next appointment. Dr. Barnett has reviewed this note and agrees with this plan of care. This note was dictated using voice recognition software and make contain errors or omissions. [facility] History I have reviewed the patient's past medical history: Yes Medical History: Reports:: Anxiety, Atrial Fibrillation, Depression, Hyperlipidemia, Hypertension Denies:: Cancer, Diabetes Mellitus Type 1, Diabetes Mellitus Type 2, Internal Pacemaker, MRSA, Seizures *Have you ever received a pneumonia vaccine?: No *Have you received a flu vaccine this season?: No Other Medical History: Reports: Arthritis, Hypothyroidism, Thyroid Disease, Other. Denies: Blood Transfusion Reaction Laterality Cases: Left: Arthroscopy Knee Other Surgeries: Yes: Bariatric Surgery, Cardiac Catheterization, Cholecystectomy, Colonoscopy, Hysterectomy-Total, Other
== END ==
PROVIDERS: PCP Family Medicine; Visit Provider Clinical Nurse Specialist Family Health
DX: G57.01 Lesion of sciatic nerve, right lower limb (principal); M17.11 Unilateral primary osteoarthritis, right knee; M46.1 Sacroiliitis, not elsewhere classified
CPT/HCPCS: 99212; G0463

== ENCOUNTER 2020-12-18 13:00 | Day surgery (SDC) | payer MEDICARE, MEDICAID, SELFPAY ==
[2020-12-18 13:21] VITALS: BP 151/68; PULSE 64; RESP 18; O2SAT 97; BMI 382.7
[2020-12-18 13:41] VITALS: BP 158/90; PULSE 60; RESP 18; O2SAT 99
[2020-12-18 13:42] VITALS: BP 158/95; PULSE 61; RESP 18; O2SAT 100
--- NOTE | 2020-12-18 13:49 | P.PCN_ITS ---
- Procedure Date: 12/18/20 Time: 13:49 Anesthesiologist:: María Elena Mcmillan APRN Complications:: None Pre-procedure Diagnosis:: Osteoarthritis right knee, right knee pain Post-procedure Diagnosis:: Same Indications for Procedure:: Patient is a 60-year-old white female who presents today for a right intra- articular knee injection. Patient has had a left knee surgery in the past and 10 used to have worsening left knee pain. She has been using her right leg for stability due to weakness in her left knee. She is now having worsening pain in her right knee. Her pain is a 7 out of 10 to her right knee. We will perform a right intra-articular knee injection today to see if she gets relief. She does have some edema noted to her right knee and is having limited mobility due to th e pain in her right knee. She is concerned that her knees are causing her to have worsening low back pain. We did discuss undergoing an x-ray of her left knee at her last visit due to worsening pain to the left knee. We will assess her left knee to make sure hardware is in place. She is continue with home stretching. Physical exam General: Alert and oriented x3, no acute distress, pleasant and cooperative, [on room air] Lungs: Respirations even and unlabored, symmetrical chest expansion Eyes: PERRL Musculoskeletal: Flexion and extension of lumbar spine somewhat guarded secondary to pain, deep tendon reflexes normal, strength in upper and lower extremities [5/5], [abnormal gait noted] Neurological: Speech clear, wound care physician equal, no gross sensory deficit Procedure Details:: Procedure: Informed consent was obtained and risk and benefits of the procedure was explained to the patient. Patient was taken to the procedure room. Right knee was prepped using ChloraPrep. A 25-gauge needle was used first medially then laterally to inject 10 mL's bupivacaine 0.25% and Depo-Medrol 40 mg. Patient tolerated the procedure well with no complications. Plan and Disposition:: We will see the patient back in 2 weeks to reevaluate her symptoms. We will order an x-ray of her left knee to check hardware placement. Patient has been instructed to contact the clinic with any concerns before the next appointment. Dr. Barnett has reviewed this note and agrees with this plan of care. This note was dictated using voice recognition software and make contain errors or omissions.
[2020-12-18 13:58] VITALS: BP 132/56; PULSE 68; RESP 20; O2SAT 98
--- NOTE | 2020-12-18 14:00 | XR_ITS ---
PROCEDURE: XR KNEE LT 3V CLINICAL INDICATION: LT KNEE PAIN COMPARISON: CR KNEELMLT XR knee LT 2V from 08/05/2018 CR XR KNEE LT 2V from 02/17/2019 CR XR KNEE LT 2V from 06/15/2019 CR XR KNEE LT 2V from 08/09/2019 FINDINGS: There has been a prior total knee replacement on the left. There is good alignment of the prosthesis with no evidence of prosthesis loosening. There is an area of sclerosis with small cystic component involving the proximal tibia laterally which is unchanged. IMPRESSION: Status post total knee replacement with good alignment overall not significantly changed Dictated by: Charly De Anda MD 12/18/2020 14:11 Charly De Anda MD in [place] 12/18/2020 14:11
== END 2020-12-18 13:59 | disposition home or self-care (01) ==
PROVIDERS: PCP Family Medicine; Visit Provider Clinical Nurse Specialist Family Health
DX: M17.11 Unilateral primary osteoarthritis, right knee (principal); M25.569 Pain in unspecified knee
CPT/HCPCS: 20610; 73562

== ENCOUNTER 2021-01-09 14:22 | Emergency (ER) | payer MEDICARE, MEDICAID, SELFPAY ==
[2021-01-09 14:27] VITALS: BP 124/71; PULSE 61; RESP 16; TEMP 36.8; O2SAT 98; BMI 38.0
[2021-01-09 14:39] VITALS: PULSE 68; RESP 16; TEMP 36.8; O2SAT 99; BMI 38.0
--- NOTE | 2021-01-09 14:41 | XR_ITS ---
PROCEDURE: XR ANKLE RT MIN 3V CLINICAL INDICATION: fall Posttraumatic pain COMPARISON: CR ANKR3 ANKLE-RT-3 VIEWS from 06/03/2015 CR XR ANKLE RT MIN 3V from 11/28/2020 FINDINGS: No fracture or dislocation. No lytic or blastic change. There is normal mineralization. The joint spaces are well-preserved. No significant degenerative/arthritic changes. No erosive changes evident. Other findings:None. IMPRESSION: Negative ankle Dictated by: Charly De Anda MD 01/09/2021 15:26 Charly De Anda MD in [place] 01/09/2021 15:26
--- NOTE | 2021-01-09 14:41 | XR_ITS ---
PROCEDURE: XR FOOT RT MIN 3V CLINICAL INDICATION: fall Pain COMPARISON: CR FTR3 FOOT-RT-3 VIEWS from 06/03/2015 CR FTR3 FOOT-RT-3 VIEWS from 01/22/2016 CR FTR3 FOOT-RT-3 VIEWS from 02/20/2016 CR FTR3 FOOT-RT-3 VIEWS from 03/19/2016 FINDINGS: There is lateral angulation the head of the 3rd metatarsal. This may represent an old fracture. Please correlate as the patient's area of pain and swelling. This was not present however on the previous exam. There are osteoarthritic changes which have developed at the tarsal metatarsal junction at the 2nd, 3rd, 4th, and 5th metatarsals. Subchondral cystic changes are present at the tarsal metatarsal junction as well and have developed in the interval. There is some mild prominence of the joint space at the 2nd tarsal metatarsal junction. There are osteoarthritic changes at the navicular cuneiform joint which is developed. Small calcaneal spurs noted. There is prominent soft tissue swelling along the dorsal aspect of the foot at the metatarsal region. There is lateral deviation of the proximal phalanges at the 2nd 3rd and 4th toes. No definite acute bony destructive changes apparent IMPRESSION: Diffuse soft tissue swelling at the dorsal metatarsal region Degenerative changes of the midfoot as described above. Possible developing Charcot joint. Old fracture at the head of the 3rd metatarsal Dictated by: Charly De Anda MD 01/09/2021 15:25 Charly De Anda MD in [place] 01/09/2021 15:25
--- NOTE | 2021-01-09 15:38 | HMH.EDUTC ---
[facility] [place] Dis[place] Clinical Impression: Right foot pain Right ankle pain Qualifiers: Chronicity: acute Qualified Code(s): M25.571 - Pain in right ankle and joints of right foot Disposition: Home, Self-Care Condition on Discharge: Good Instructions: DI for Ankle Pain Additional Instructions: Rest the extremity, apply ice for 15 minutes as tolerated three or four times per day, Wear the joseph wrap for compression, Elevate the extremity as tolerated while you are resting. Take ibuprofen for pain. Follow up with Dr. Fontenot (podiatry). I put in a referral but you need to call his office and schedule an appointment. Follow up with your regular doctor. GO TO THE ER FOR ANY WORSENING SYMPTOMS Referrals: Ulises Judd MD [Primary Care Provider] - Liza Fontenot DPM [Staff Physician] - Time of Disposition: 15:40 Medical Decision Making - Medical Records Medical records reviewed: No: I reviewed the patient's medical records. - Tavo Inquiry Pt receiving controlled substance: No Vital Signs: 01/09/21 14:27 01/09/21 14:39 01/09/21 16:08 Temperature 98.3 F 98.3 F 98 F Temperature Source Oral Oral Pulse Rate 64 Pulse Rate [Right Radial] 61 68 Respiratory Rate 16 16 16 Blood Pressure 121/81 Blood Pressure [Right Arm] 124/71 Blood Pressure Mean [Right Arm] 88 Blood Pressure Source [Right Arm] Automatic Cuff Blood Pressure Position [Right Arm] Sitting 02 Sat by Pulse Oximetry 98 99 Oxygen Delivery Method Room Air - Radiology Data #1 Image(s): Ankle, Foot/Toes PROCEDURE: XR ANKLE RT MIN 3V CLINICAL INDICATION: fall Posttraumatic pain COMPARISON: CR ANKR3 ANKLE-RT-3 VIEWS from 06/03/2015 CR XR ANKLE RT MIN 3V from 11/28/2020 FINDINGS: No fracture or dislocation. No lytic or blastic change. There is normal mineralization. The joint spaces are well-preserved. No significant degenerative/arthritic changes. No erosive changes evident. Other findings:None. IMPRESSION: Negative ankle Dictated by: Charly De Anda MD 01/09/2021 15:26 Charly De Anda MD in [place] 01/09/2021 15:26 [facility] [place] HPI - General Stated complaint: ao 12/28 rt ankle pain Time Seen by Provider: 01/09/21 14:45 Mode of Arrival: Ambulatory Source of Information: Patient Limitations: No Limitations Description of Symptoms (Recalled from Triage Doc. by RN): pt fell two weeks ago and is still having pain in her R foot and ankle. HEENT Symptoms (Recalled from RN notes): No Resp Symptoms (Recalled from RN notes): No Skin Symptoms (Recalled from RN notes): No MS Symptoms (Recalled from RN notes): Yes (R foot and ankle pain) Functional Status (Recalled from RN notes): na - History of Present Illness Provider Complaint: She c/o right foot pain and swelling for the past 2 weeks. - Related Data Home Medications Medication Instructions Recorded Confirmed cholecalciferol (vitamin D3) 25 1,000 unit PO DAILY 07/23/17 12/18/20 mcg (1,000 unit) capsule furosemide 40 mg tablet 80 mg PO DAILY 07/23/17 12/18/20 levothyroxine 100 mcg capsule 125 mcg PO DAILY 07/23/17 12/18/20 naproxen 500 mg tablet 500 mg PO Q12H PRN 07/23/17 12/18/20 venlafaxine 75 mg capsule,extended 150 mg PO DAILY 07/23/17 12/18/20 release 24 hr zinc acetate 50 mg (zinc) capsule 50 mg PO DAILY 07/23/17 12/18/20 Potassium Chloride [Pot Chlor 10 10 meq PO BID 08/20/17 12/18/20 mEq Tab] Topiramate 50 mg PO BID 08/20/17 12/18/20 hydrocodone 7.5 mg-acetaminophen 1 tab PO Q4-6H PRN 09/04/17 12/18/20 300 mg tablet Buspirone HCl [Buspar 10mg 10 mg PO BID 05/06/18 12/18/20 tablet] Ferrous Sulfate [Ferrous Sulfate 325 mg PO DAILY 05/06/18 12/18/20 325mg Tablet] Pramipexole Di-HCl [Mirapex 1mg 1 mg PO TID 05/06/18 12/18/20 tablet] rivaroxaban 10 mg tablet 20 mg PO DAILY 08/12/19 12/18/20 Escitalopram Oxalate [Lexapro] 10 mg PO DAILY 05/28/20 12/18/20 Melatonin 1 mg PO DAILY 05/28/20 12/18/20 Pantoprazole Sodium 40 mg
[2021-01-09 16:08] VITALS: BP 121/81; PULSE 64; RESP 16; TEMP 36.6
== END 2021-01-09 17:00 | disposition home or self-care (01) ==
PROVIDERS: Emergency Provider Nurse Practitioner Family; PCP Family Medicine
DX: M25.571 Pain in right ankle and joints of right foot (principal); I48.0 Paroxysmal atrial fibrillation; I10 Essential (primary) hypertension; F41.8 Other specified anxiety disorders; E78.5 Hyperlipidemia, unspecified; E03.9 Hypothyroidism, unspecified; Z79.899 Other long term (current) drug therapy
CPT/HCPCS: G0463; 73610; 73630; 99202

== ENCOUNTER 2021-03-08 03:36 | Emergency (ER) | payer MEDICARE, MEDICAID, SELFPAY ==
[2021-03-08 03:52] VITALS: BP 161/89; PULSE 68; RESP 18; TEMP 36.4; O2SAT 94; BMI 39.9
--- NOTE | 2021-03-08 04:17 | HMH.EDEPIS ---
ED Disposition Clinical Impression: Epistaxis Disposition: Home, Self-Care Condition on Discharge: Good Instructions: DI for Nosebleed Additional Instructions: see pcp or ent if sx continue Referrals: Ulises Judd MD [Primary Care Provider] - Fortunato Shearer MD [Staff Physician] - - Critical Care Critical Care Time: No Attestation: On 03/08/21, the high probability of a clinically significant, sudden or life threatening deterioration of the following system(s) required my full and direct attention, intervention and personal management. The time I documented below is in addition to time spent performing reported procedures but includes the following listed in this critical care notation. Medical Decision Making - Medical Records Medical records reviewed: Yes: I reviewed the patient's medical records. - Tavo Inquiry Pt receiving controlled substance: No Vital Signs: 03/08/21 03:52 Temperature 97.5 F L Temperature Source Oral Pulse Rate [Right] 68 Respiratory Rate 18 Blood Pressure [Right Arm] 161/89 H Blood Pressure Mean [Right Arm] 113 Blood Pressure Source [Right Arm] Automatic Cuff Blood Pressure Position [Right Arm] Sitting 02 Sat by Pulse Oximetry 94 L Oxygen Delivery Method Room Air Orders (Tests/Meds): ED MEDICATIONS Discontinued Medications Generic Name Dose Route Start Last Admin Trade Name Freq PRN Reason Stop Dose Admin Cocaine HCl 4 ml 03/08/21 04:05 03/08/21 04:06 Cocaine 4% Topical Soln 4ml Bottle TP 03/08/21 04:06 4 ml ONCE ONE Administration Oxymetazoline HCl 2 ml 03/08/21 04:05 03/08/21 04:06 Oxymetazoline Nasal [place] 0.05% 15ml NS 03/08/21 04:06 2 ml ONCE ONE Administration Medical Decision Narrative: has nosebleed complicated by anticoagulant Epistaxis HPI - General Chief complaint: Epistaxis Stated complaint: Nose Bleed Time Seen by Provider: 03/08/21 04:05 Mode of Arrival: Ambulatory Source of Information: Patient, Medical Record Limitations: No Limitations Description of Symptoms (Recalled from ER Triage Doc. by RN): Pt states her Dr took her off xarelto, but today is the first day she didn't take it. Pt states her nose started bleeding about 0130 this evening and would not stop. On arrival pt hat tissue stuffed up both nare, when removed there was blood on the tissue from the right nare. No active bleeding noted at this time. - History of Present Illness HPI Narrative: atraumatic nose bleed from rt with hx of same on xaralto till yesterday complaint: epistaxis Location: bilateral nostril Onset (ago): hour(s) Duration: intermittent Context: history of previous Treatment prior to arrival: stuffed nose with tissue - Related Data Home Medications Medication Instructions Recorded Confirmed cholecalciferol (vitamin D3) 25 1,000 unit PO DAILY 07/23/17 12/18/20 mcg (1,000 unit) capsule furosemide 40 mg tablet 80 mg PO DAILY 07/23/17 12/18/20 levothyroxine 100 mcg capsule 125 mcg PO DAILY 07/23/17 12/18/20 naproxen 500 mg tablet 500 mg PO Q12H PRN 07/23/17 12/18/20 venlafaxine 75 mg capsule,extended 150 mg PO DAILY 07/23/17 12/18/20 release 24 hr zinc acetate 50 mg (zinc) capsule 50 mg PO DAILY 07/23/17 12/18/20 Potassium Chloride [Pot Chlor 10 10 meq PO BID 08/20/17 12/18/20 mEq Tab] Topiramate 50 mg PO BID 08/20/17 12/18/20 hydrocodone 7.5 mg-acetaminophen 1 tab PO Q4-6H PRN 09/04/17 12/18/20 300 mg tablet Buspirone HCl [Buspar 10mg 10 mg PO BID 05/06/18 12/18/20 tablet] Ferrous Sulfate [Ferrous Sulfate 325 mg PO DAILY 05/06/18 12/18/20 325mg Tablet] Pramipexole Di-HCl [Mirapex 1mg 1 mg PO TID 05/06/18 12/18/20 tablet] rivaroxaban 10 mg tablet 20 mg PO DAILY 08/12/19 12/18/20 Escitalopram Oxalate [Lexapro] 10 mg PO DAILY 05/28/20 12/18/20 Melatonin 1 mg PO DAILY 05/28/20 12/18/20 Pantoprazole Sodium 40 mg PO DAILY 05/28/20 12/18/20 Previous Rx's Medication Instructions Recorded Diclof
[2021-03-08 04:36] VITALS: BP 122/80; PULSE 71; RESP 18; TEMP 36.4; O2SAT 96
== END 2021-03-08 04:38 | disposition home or self-care (01) ==
PROVIDERS: Emergency Provider Emergency Medicine; PCP Family Medicine
DX: R04.0 Epistaxis (principal); F41.8 Other specified anxiety disorders; I10 Essential (primary) hypertension; E78.5 Hyperlipidemia, unspecified; I48.0 Paroxysmal atrial fibrillation; E03.9 Hypothyroidism, unspecified; Z79.899 Other long term (current) drug therapy
CPT/HCPCS: 30901; 99281

== ENCOUNTER 2021-03-24 11:50 | Emergency (ER) | payer MEDICARE, MEDICAID, SELFPAY ==
[2021-03-24 13:00] VITALS: BP 177/99; PULSE 62; RESP 20; TEMP 36.6; O2SAT 100; BMI 39.1
--- NOTE | 2021-03-24 13:23 | HMH.EDUTC ---
[facility] [place] Disposition Clinical Impression: URI (upper respiratory infection) Qualifiers: URI type: unspecified URI Qualified Code(s): J06.9 - Acute upper respiratory infection, unspecified Disposition: Home, Self-Care Condition on Discharge: Good Instructions: Preventing the Spread of Coronavirus Discharge Instructions Additional Instructions: You have been tested for COVID19. Please isolate yourself as if you are positive until test results received. Return to [facility] if difficulty breathing, chest pain, dehydration, etc Referrals: Ulises Judd MD [Primary Care Provider] - Time of Disposition: 13:25 Medical Decision Making - Tavo Inquiry Pt receiving controlled substance: No Vital Signs: 03/24/21 13:00 Temperature 97.8 F Temperature Source Oral Pulse Rate [Right Brachial] 62 Respiratory Rate 20 Blood Pressure [Right Arm] 177/99 H Blood Pressure Mean [Right Arm] 125 Blood Pressure Source [Right Arm] Automatic Cuff Blood Pressure Position [Right Arm] Sitting 02 Sat by Pulse Oximetry 100 Oxygen Delivery Method Room Air [facility] [place] HPI - General Stated complaint: nasa congestion,cough Time Seen by Provider: 03/24/21 13:23 Mode of Arrival: Ambulatory Source of Information: Patient Limitations: No Limitations Description of Symptoms (Recalled from Triage Doc. by RN): PATIENT C/O CONGESTION, RUNNY NOSE, DIARRHEA, CHILLS AND COUGH X 5 DAYS. REQUESTING COVID TEST HEENT Symptoms (Recalled from RN notes): Yes Resp Symptoms (Recalled from RN notes): Yes Skin Symptoms (Recalled from RN notes): No MS Symptoms (Recalled from RN notes): No Functional Status (Recalled from RN notes): WNL - History of Present Illness Provider Complaint: Runny nose, nasal congestion, cough, diarrhea X 5 days. No fever. Has been vaccinated against COVID19. No known direct exposure. Onset (ago): day(s) (5) Location: chest Relieving factors: none Exacerbating factors: none Associated symptoms: cough, malaise Treatments prior to arrival: none - Related Data Home Medications Medication Instructions Recorded Confirmed cholecalciferol (vitamin D3) 25 1,000 unit PO DAILY 07/23/17 12/18/20 mcg (1,000 unit) capsule furosemide 40 mg tablet 80 mg PO DAILY 07/23/17 12/18/20 levothyroxine 100 mcg capsule 125 mcg PO DAILY 07/23/17 12/18/20 naproxen 500 mg tablet 500 mg PO Q12H PRN 07/23/17 12/18/20 venlafaxine 75 mg capsule,extended 150 mg PO DAILY 07/23/17 12/18/20 release 24 hr zinc acetate 50 mg (zinc) capsule 50 mg PO DAILY 07/23/17 12/18/20 Potassium Chloride [Pot Chlor 10 10 meq PO BID 08/20/17 12/18/20 mEq Tab] Topiramate 50 mg PO BID 08/20/17 12/18/20 hydrocodone 7.5 mg-acetaminophen 1 tab PO Q4-6H PRN 09/04/17 12/18/20 300 mg tablet Buspirone HCl [Buspar 10mg 10 mg PO BID 05/06/18 12/18/20 tablet] Ferrous Sulfate [Ferrous Sulfate 325 mg PO DAILY 05/06/18 12/18/20 325mg Tablet] Pramipexole Di-HCl [Mirapex 1mg 1 mg PO TID 05/06/18 12/18/20 tablet] rivaroxaban 10 mg tablet 20 mg PO DAILY 08/12/19 12/18/20 Escitalopram Oxalate [Lexapro] 10 mg PO DAILY 05/28/20 12/18/20 Melatonin 1 mg PO DAILY 05/28/20 12/18/20 Pantoprazole Sodium 40 mg PO DAILY 05/28/20 12/18/20 Previous Rx's Medication Instructions Recorded Diclofenac Sodium [Pennsaid] 2 gm TP QID 30 Days #2 soln.pk.g. 12/25/20 Allergies Allergy/AdvReac Type Severity Reaction Status Date / Time hyaluronic acid AdvReac Severe Verified 12/18/20 13:22 [From Caty] - Worker's Comp Is this a Worker's Comp case?: No [facility] History - Hepatitis A Screen Drug use history?: No High risk sexual behaviors?: No History of sexually transmitted infection?: No Currently employed?: No Childcare worker?: No Do you have indoor plumbing?: Yes Do you have electricity?: Yes Attestation statement:: This patient has been screened for Hepatitis A risk factors. I have reviewed the patient's past medical history: Yes Medical History: Reports:: Anxiety, Atri
[2021-03-24 13:34] VITALS: BP 177/99; PULSE 62; RESP 20; TEMP 36.6; O2SAT 100
== END 2021-03-24 13:36 | disposition home or self-care (01) ==
PROVIDERS: Emergency Provider Physician Assistant; PCP Family Medicine
DX: J06.9 Acute upper respiratory infection, unspecified (principal)
CPT/HCPCS: 99202; C9803; G0463; U0003; U0005

== ENCOUNTER → 2021-04-02 15:27 | Outpatient (POV) | payer MEDICARE, MEDICAID, SELFPAY ==
[2021-04-02 15:42] VITALS: BP 126/68; PULSE 67; RESP 18; O2SAT 98; BMI 39.1
--- NOTE | 2021-04-02 16:08 | HMH.PAINSOAP ---
[facility] Pain Management SOAP Note Subjective:: Patient is a 60-year-old white female who presents today for follow-up. The patient did undergo a right intra-articular knee injection on 12/18/2020. Patient is back today with complaints of worsening knee pain as well as low back pain with radiation into the right foot. She says that the pain is progressively Mahesh worsening. She is unable to discharge her spinal cord stimulator?[employer] due to the pump moving. Patient has lost weight recently and says that she is now unable to charge her device adequately. She is having severe low back pain with radiation into her lower extremities with any type of movement. She is now using a scooter and a walker for ambulation. She is very tearful today. She rates her pain an 8 out of 10. She would like to undergo repositioning/takedown of her [employer] stimulator. She is also interested and a right intra-articular knee injection. Given the patient's worsening symptoms and minimal relief with her device, we did discuss intrathecal therapy. She is interested in proceeding with possible intrathecal therapy for long-term pain management. Review of Systems General: No recent weight changes, no fever, no sleep disturbances Respiratory: No cough, no shortness of air, no recurring pulmonary infections Cardiovascular/peripheral vascular: No chest pain, no palpitations, no edema, no shortness of breath Gastrointestinal: No new onset incontinence, normal bowel movements reported Genitourinary: No new onset incontinence Musculoskeletal: Low back pain, right knee pain, right foot pain Psychiatric: [Normal mood/affect] Neurological: [Denies weakness in extremities], [denies balance issues] Objective:: Physical exam General: Alert and oriented x3, no acute distress, pleasant and cooperative, [on room air] Lungs: Respirations even and unlabored, symmetrical chest expansion Eyes: PERRL Musculoskeletal: Flexion and extension of lumbar [spine] somewhat guarded secondary to pain, strength in upper and lower extremities [5/5], [antalgic gait noted] Neurological: Speech clear, [design agent equal], no gross sensory deficit Assessment:: Degenerative disc disease lumbar spine with lumbar radiculopathy symptoms, osteoarthritis bilateral knees Plan:: We will schedule the patient for repeat injection to her right knee. She does get relief with the injections up to 80% but only for short time, at approximately 2 weeks. We will schedule patient for takedown of her [employer] stimulator and reach out to the admitting representative for reprogramming. We will send the patient for psychological evaluation to see if she is an appropriate candidate for intrathecal therapy. We will order the patient compounding cream to apply topically to her knees. Patient is continued to have significant pain and the low back, right lower extremity and right foot. She is also having pain into bilateral knees and left leg. Patient says the pain has now started to travel to her mid back and neck as well. We will schedule her for the psychological evaluation and discuss a further plan of care once we receive the results. Possible side effects of corticosteroids have been discussed with the patient. Risks and benefits of the procedure have been explained to the patient. Patient would like to proceed with the procedure. Patient has been instructed to contact the clinic with any concerns before the next appointment. Dr. Barnett has reviewed this note and agrees with this plan of care. This note was dictated using voice recognition software and make contain errors or omissions. [facility] History I have reviewed the patient's past medical history: Yes Medical History: Reports:: Anxiety, Atrial Fibrillation, Depression, Hyperlipidemia, Hypertension Denies:: Cancer, Diabetes Mellitus Type 1, Diabetes Mellitus Type 2, Internal Pacemaker, MRSA, Seizures *Have you ever received a pneumonia vacc
== END ==
PROVIDERS: PCP Family Medicine; Visit Provider Clinical Nurse Specialist Family Health
DX: M51.16 Intervertebral disc disorders with radiculopathy, lumbar region (principal); M17.0 Bilateral primary osteoarthritis of knee
CPT/HCPCS: 99212; G0463

== ENCOUNTER 2021-04-13 10:00 | Day surgery (SDC) | payer MEDICARE, MEDICAID, SELFPAY ==
[2021-04-13 10:07] VITALS: BP 151/71; PULSE 64; RESP 18; TEMP 36.6; O2SAT 99; BMI 39.1
[2021-04-13 10:26] VITALS: BP 145/70; PULSE 64; RESP 18; O2SAT 100
[2021-04-13 10:27] VITALS: BP 145/70; PULSE 64; RESP 18; O2SAT 100
--- NOTE | 2021-04-13 10:33 | P.PCN_ITS ---
- Procedure Date: 04/13/21 Time: 10:33 Anesthesiologist:: Ned Barnett MD Complications:: None Pre-procedure Diagnosis:: Right knee pain with degenerative osteoarthritis Post-procedure Diagnosis:: Same Indications for Procedure:: This patient is a pleasant 60-year-old white female who we are treating for right knee pain with degenerative osteoarthritis. She had a right knee intra-articular injection back in November. She did benefit from this she was 70 to 80% better. Her pain is now returning she presents for repeat right knee intra- articular injection today. Procedure Details:: Right knee intra-articular injection Informed consent was obtained the risk and benefits of the procedure were explained to the patient. Patient was taken the procedure room. The right knee was prepped using ChloraPrep. A 25-gauge needle was used first medially then laterally to inject 10 mL bupivacaine 0.25% and Depo-Medrol 40 mg into the right knee. The patient tolerated procedure well with no complications. Plan and Disposition:: We will follow-up with her in 2 weeks. Will reevaluate symptoms at that time.
[2021-04-13 10:44] VITALS: BP 156/81; PULSE 60; RESP 20; O2SAT 100
== END 2021-04-13 10:45 | disposition home or self-care (01) ==
LOC: SC.PAINP 10:02
PROVIDERS: PCP Family Medicine; Visit Provider Anesthesiology
DX: M17.11 Unilateral primary osteoarthritis, right knee (principal); M81.0 Age-related osteoporosis without current pathological fracture; E03.9 Hypothyroidism, unspecified; E78.5 Hyperlipidemia, unspecified; I48.91 Unspecified atrial fibrillation; I10 Essential (primary) hypertension; F41.9 Anxiety disorder, unspecified; F32.9 Major depressive disorder, single episode, unspecified; Z88.8 Allergy status to other drugs, medicaments and biological substances
CPT/HCPCS: 20610; J1040

== ENCOUNTER → 2021-04-16 14:42 | Outpatient (CLI) | payer MEDICARE, MEDICAID, SELFPAY ==
[2021-04-16 15:18] LABS: Basophils % 0.6 % (0.1-2.0); Eosinophils # 0.4 K/mm3 (0.0-0.4); Eosinophils % 8.2 % (0.1-12.0); Hematocrit 38.4 % (37.0-47.0); Hemoglobin 12.1 g/dL (12.2-16.2); Lymphocytes # 1.1 K/mm3 (0.7-4.5); Lymphocytes % 22.2 % (10-50); Mean Corpuscular HGB Conc 31.6 g/dL (31.8-35.4); Mean Corpuscular Hemoglobin 31.9 pg (27.0-31.2); Mean Corpuscular Volume 100.9 fl (81-99); Mean Platelet Volume 9.3 fl (7.4-10.4); Monocytes # 0.2 K/mm3 (0.1-1.0); Monocytes % 4.7 % (1.7-9.3); Neutrophils # 3.3 K/mm3 (1.8-7.8); Neutrophils % 64.2 % (37.0-80.0); Platelet Count 235 K/mm3 (142-424); Red Blood Count 3.81 M/mm3 (4.20-5.40); Red Cell Distribution Width 13.3 % (11.5-17.5); White Blood Count 5.1 K/mm3 (4.8-10.8)
[2021-04-16 16:28] LABS: Chloride 108 mmol/L (98-107); Sodium 143 mmol/L (136-145)
[2021-04-16 16:29] LABS: Potassium 4.1 mmoL/L (3.5-5.1)
[2021-04-16 16:31] LABS: Blood Urea Nitrogen 13 mg/dl (7-17); Estimated Glomerular Filt Rate 85 ml/min (>60); GFR (African American) 103 ML/MIN (>60)
[2021-04-16 16:32] LABS: Anion Gap 12.1 mEq/L (5-15); Carbon Dioxide 27 mmol/L (22.0-30.0); Glucose 89 mg/dl (74-100)
== END ==
PROVIDERS: Visit Provider Anesthesiology
DX: Z01.812 Encounter for preprocedural laboratory examination (principal); Z11.52 Encounter for screening for COVID-19; U07.1 COVID-19; M54.16 Radiculopathy, lumbar region
CPT/HCPCS: 36415; 80048; 85025; C9803; U0003; U0005

== ENCOUNTER 2021-04-17 10:05 | Emergency (ER) | payer MEDICARE, MEDICAID, SELFPAY ==
[2021-04-17 10:56] VITALS: BP 133/80; PULSE 87; RESP 19; O2SAT 99; BMI 39.1
--- NOTE | 2021-04-17 11:41 | HMH.EDUTC ---
[facility] [place] Disposition Clinical Impression: Epistaxis Disposition: Home, Self-Care Condition on Discharge: Good Instructions: DI for Nosebleed Additional Instructions: Follow up with your pcp if you continue to have nosebleeds. Follow up witn ENT if necessary. GO TO THE ER FOR ANY WORSENING SYMPTOMS OR CONCERNS Referrals: Ulises Judd MD [Primary Care Provider] - Time of Disposition: 12:28 Medical Decision Making - Medical Records Medical records reviewed: No: I reviewed the patient's medical records. - Tavo Inquiry Pt receiving controlled substance: No Vital Signs: 04/17/21 10:56 04/17/21 13:04 Temperature 98 F Pulse Rate 85 Pulse Rate [Left] 87 Respiratory Rate 19 16 Blood Pressure 133/82 Blood Pressure [Right Arm] 133/80 Blood Pressure Mean [Right Arm] 97 02 Sat by Pulse Oximetry 99 Orders (Tests/Meds): ED MEDICATIONS Discontinued Medications Generic Name Dose Route Start Last Admin Trade Name Freq PRN Reason Stop Dose Admin Oxymetazoline HCl 0 ml 04/17/21 13:02 04/17/21 13:03 Oxymetazoline Nasal [place] 0.05% 15ml NS 04/17/21 13:03 1 spray ONCE ONE Administration Medical Decision Narrative: Pressure was held to her nose and afrin was appied. the bleeding was easily stopped. She was observed for 45 minutes after the bleeding stopped and then released. She is to return if the bleeding resumes. [facility] [place] HPI - General Stated complaint: nose bleed Time Seen by Provider: 04/17/21 11:41 Mode of Arrival: Ambulatory Source of Information: Patient Limitations: No Limitations Description of Symptoms (Recalled from Triage Doc. by RN): pt has had bilateral epistaxis since 0630 today. pt states she frequently has had nose bleeds in the past. HEENT Symptoms (Recalled from RN notes): Yes (epistaxis) Resp Symptoms (Recalled from RN notes): No Skin Symptoms (Recalled from RN notes): No MS Symptoms (Recalled from RN notes): No Functional Status (Recalled from RN notes): na - History of Present Illness Provider Complaint: She had a covid test done this morning at around 0630. After that she began having a nose bleed. She has a history of getting nose bleeds frequently. She was having the covid test because she is going to have a procedure done in 3 days. She takes blood thinner because she has a history of atrial fib. She has been holding her blood thinner for the past 4 days already due to her procedure. - Related Data Home Medications Medication Instructions Recorded Confirmed cholecalciferol (vitamin D3) 25 1,000 unit PO DAILY 07/23/17 04/16/21 mcg (1,000 unit) capsule furosemide 40 mg tablet 80 mg PO DAILY 07/23/17 04/16/21 levothyroxine 100 mcg capsule 125 mcg PO DAILY 07/23/17 04/16/21 naproxen 500 mg tablet 500 mg PO Q12H PRN 07/23/17 04/16/21 venlafaxine 75 mg capsule,extended 150 mg PO BID 07/23/17 04/16/21 release 24 hr zinc acetate 50 mg (zinc) capsule 50 mg PO DAILY 07/23/17 04/16/21 Potassium Chloride [Pot Chlor 10 10 meq PO BID 08/20/17 04/16/21 mEq Tab] Topiramate 50 mg PO BID 08/20/17 04/16/21 hydrocodone 7.5 mg-acetaminophen 1 tab PO Q4-6H PRN 09/04/17 04/16/21 300 mg tablet Buspirone HCl [Buspar 10mg 10 mg PO BID 05/06/18 04/16/21 tablet] Ferrous Sulfate [Ferrous Sulfate 325 mg PO DAILY 05/06/18 04/16/21 325mg Tablet] Pramipexole Di-HCl [Mirapex 1mg 1 mg PO TID 05/06/18 04/16/21 tablet] rivaroxaban 10 mg tablet 20 mg PO DAILY 08/12/19 04/16/21 Escitalopram Oxalate [Lexapro] 10 mg PO DAILY 05/28/20 04/16/21 Melatonin 1 mg PO DAILY 05/28/20 04/16/21 Pantoprazole Sodium 40 mg PO DAILY 05/28/20 04/16/21 Diclofenac Sodium [Pennsaid] 2 gm TP QID 04/13/21 04/16/21 Allergies Allergy/AdvReac Type Severity Reaction Status Date / Time hyaluronic acid AdvReac Severe Verified 04/13/21 10:33 [From Caty] - Worker's Comp Is this a Worker's Comp case?: No [facility] History - Hepatitis A Screen Drug use history?: No H
[2021-04-17 13:04] VITALS: BP 133/82; PULSE 85; RESP 16; TEMP 36.6
== END 2021-04-17 13:05 | disposition home or self-care (01) ==
PROVIDERS: Emergency Provider Nurse Practitioner Family; PCP Family Medicine
DX: R04.0 Epistaxis (principal); Z20.822 Contact with and (suspected) exposure to COVID-19; I48.0 Paroxysmal atrial fibrillation; I10 Essential (primary) hypertension; E78.5 Hyperlipidemia, unspecified; E03.9 Hypothyroidism, unspecified; F41.8 Other specified anxiety disorders; Z79.899 Other long term (current) drug therapy
CPT/HCPCS: G0463; 99202

== ENCOUNTER 2021-04-20 00:25 | Emergency (ER) | payer MEDICARE, MEDICAID, SELFPAY ==
[2021-04-20 00:26] VITALS: BP 159/82; PULSE 81; RESP 16; TEMP 36.8; O2SAT 97; BMI 37.5
[2021-04-20 01:42] LABS: Basophils % 0.5 % (0.1-2.0); Eosinophils # 0.4 K/mm3 (0.0-0.4); Eosinophils % 6.2 % (0.1-12.0); Hematocrit 26.9 % (37.0-47.0); Hemoglobin 8.8 g/dL (12.2-16.2); Lymphocytes # 1.4 K/mm3 (0.7-4.5); Lymphocytes % 23.9 % (10-50); Mean Corpuscular HGB Conc 32.5 g/dL (31.8-35.4); Mean Corpuscular Volume 98.3 fl (81-99); Mean Platelet Volume 9.5 fl (7.4-10.4); Monocytes # 0.3 K/mm3 (0.1-1.0); Monocytes % 4.5 % (1.7-9.3); Neutrophils # 3.9 K/mm3 (1.8-7.8); Platelet Count 250 K/mm3 (142-424); Red Blood Count 2.74 M/mm3 (4.20-5.40); Red Cell Distribution Width 13.3 % (11.5-17.5)
--- NOTE | 2021-04-20 01:49 | HMH.EDGENADL ---
ED Disposition Clinical Impression: Epistaxis not due to trauma Disposition: Home, Self-Care Condition on Discharge: Fair Instructions: DI for Nosebleed Referrals: Ulises Judd MD [Primary Care Provider] - - Critical Care Critical Care Time: No Attestation: On 04/20/21, the high probability of a clinically significant, sudden or life threatening deterioration of the following system(s) required my full and direct attention, intervention and personal management. The time I documented below is in addition to time spent performing reported procedures but includes the following listed in this critical care notation. Medical Decision Making - Medical Records Medical records reviewed: Yes: I reviewed the patient's medical records. - Tavo Inquiry Pt receiving controlled substance: No Vital Signs: 04/20/21 00:26 04/20/21 02:13 Temperature 98.2 F 98.2 F Temperature Source Oral Oral Pulse Rate 80 Pulse Rate [Right] 81 Respiratory Rate 16 20 Blood Pressure 148/79 H Blood Pressure [Right Arm] 159/82 H Blood Pressure Mean [Right Arm] 107 02 Sat by Pulse Oximetry 97 Oxygen Delivery Method Room Air - Lab Data Lab Results 04/20/21 01:32: WBC 6.0, RBC 2.74 L, Hgb 8.8 L, Hct 26.9 L, MCV 98.3, MCH 32.0 H, MCHC 32.5, RDW 13.3, Plt Count 250, MPV 9.5, Neut % (Auto) 65.0, Lymph % (Auto) 23.9, [place] % (Auto) 4.5, Eos % (Auto) 6.2, Baso % (Auto) 0.5, Neut # (Auto) 3.9, Lymph # (Auto) 1.4, [place] # (Auto) 0.3, Eos # (Auto) 0.4, Baso # (Auto) 0.0 Result diagrams: 04/20/21 01:32 Orders (Tests/Meds): ED MEDICATIONS Generic Name Dose Route Start Last Admin Trade Name Freq PRN Reason Stop Dose Admin Silver Nitrate 1 each 04/20/21 01:48 Silver Nitrate Applicator TP 04/20/21 01:49 ONCE ONE Discontinued Medications Generic Name Dose Route Start Last Admin Trade Name Freq PRN Reason Stop Dose Admin Hydrocodone Bitart/Acetaminophen 1 tab 04/20/21 02:22 Hydrocodone/Apap 5/325 Mg Tablet PO 04/20/21 02:23 ONCE ONE Cocaine HCl 4 ml 04/20/21 00:55 04/20/21 00:55 Cocaine 4% Topical Soln 4ml Bottle TP 04/20/21 00:56 4 ml ONCE ONE Administration Ondansetron HCl 4 mg 04/20/21 01:21 04/20/21 01:34 Ondansetron 4mg Odt SL 04/20/21 01:22 4 mg ONCE ONE Administration Oxymetazoline HCl 1 ml 04/20/21 00:55 04/20/21 00:56 Oxymetazoline Nasal [place] 0.05% 15ml NS 04/20/21 00:56 1 ml ONCE ONE Administration Medical Decision Narrative: Patient is a 60-year-old female presenting to the emergency department chief complaint of epistaxis. Differential diagnosis includes anterior bleed, posterior bleed, sinusitis, anemia among others. Given the patient history of having prolonged chest pain the day prior as well, patient CBC was checked. Patient was found to be anemic compared to prior assessment 4 days ago. Bleeding was stopped with oxymetazoline as well as cocaine, and then silver nitrate. Patient was observed in between ED steps, and had resolution of epistaxis. Throughout the course the emergency department stay she stated that she developed some nausea as she had swallowed some blood she was given Zofran for this. She also has chronic right lower back pain where she has a stimulator and was given a [place]. Due to her blood loss, she was given outpatient lab follow-up as well as told to follow-up with Dr. Judd her primary care physician. Her was able to escort her home. General Adult HPI - General Chief complaint: Epistaxis Stated complaint: nose bleed Time Seen by Provider: 04/20/21 00:40 Mode of Arrival: Wheelchair Limitations: No Limitations Description of Symptoms (Recalled from ER Triage Doc. by RN): pt states nosebleed that started a hour ago - History of Present Illness HPI narrative: Patient is 60-year-old female presented emergency department with chief complaint of epistaxis. Patient states that it began about an hour prior to coming to
[2021-04-20 02:13] VITALS: BP 148/79; PULSE 80; RESP 20; TEMP 36.8; O2SAT 98
--- NOTE | 2021-04-20 02:15 | PC.NURSE ---
pt given d/c instructions and outpt order for cbc to be completed before noon today (04/20).
== END 2021-04-20 02:20 | disposition home or self-care (01) ==
PROVIDERS: Emergency Provider Emergency Medicine; PCP Family Medicine
DX: R04.0 Epistaxis (principal); U07.1 COVID-19; F41.8 Other specified anxiety disorders; E78.5 Hyperlipidemia, unspecified; I10 Essential (primary) hypertension; E03.9 Hypothyroidism, unspecified; Z79.899 Other long term (current) drug therapy
CPT/HCPCS: 30901; 36415; 85025; 99282

== ENCOUNTER → 2021-04-20 11:20 | Outpatient (CLI) | payer MEDICARE, MEDICAID, SELFPAY ==
[2021-04-20 11:55] LABS: Basophils % 0.7 % (0.1-2.0); Eosinophils # 0.4 K/mm3 (0.0-0.4); Eosinophils % 5.9 % (0.1-12.0); Hematocrit 26.8 % (37.0-47.0); Hemoglobin 8.3 g/dL (12.2-16.2); Lymphocytes # 1.2 K/mm3 (0.7-4.5); Lymphocytes % 19.3 % (10-50); Mean Corpuscular HGB Conc 30.8 g/dL (31.8-35.4); Mean Corpuscular Hemoglobin 31.9 pg (27.0-31.2); Mean Corpuscular Volume 103.4 fl (81-99); Mean Platelet Volume 8.8 fl (7.4-10.4); Monocytes # 0.2 K/mm3 (0.1-1.0); Monocytes % 3.9 % (1.7-9.3); Neutrophils # 4.2 K/mm3 (1.8-7.8); Neutrophils % 70.1 % (37.0-80.0); Platelet Count 245 K/mm3 (142-424); Red Blood Count 2.59 M/mm3 (4.20-5.40); Red Cell Distribution Width 13.6 % (11.5-17.5)
== END ==
PROVIDERS: PCP Family Medicine; Visit Provider Emergency Medicine
DX: D64.9 Anemia, unspecified (principal)
CPT/HCPCS: 36415; 85025

== ENCOUNTER 2021-04-20 16:04 | Emergency (ER) | payer MEDICARE, MEDICAID, SELFPAY ==
[2021-04-20] VITALS (7 sets, daily range): BP systolic 109–168; BP diastolic 47–93; PULSE 66–92; RESP 14–17; TEMP 36.6; O2SAT 96–100; BMI 39.1
[2021-04-20 18:11] LABS: Hematocrit 24.5 % (37.0-47.0); Hemoglobin 7.8 g/dL (12.2-16.2)
--- NOTE | 2021-04-20 19:48 | PC.NURSE ---
paged dr lopez
--- NOTE | 2021-04-20 19:49 | PC.NURSE ---
on phone with dr lopez
--- NOTE | 2021-04-20 20:51 | PC.NURSE ---
calling [facility] at this time [phone]
--- NOTE | 2021-04-20 20:55 | PC.NURSE ---
phone number entered in error in last note. phone number is [phone]
--- NOTE | 2021-04-20 20:58 | PC.NURSE ---
[facility] not have [facility]. calling [facility] now
--- NOTE | 2021-04-20 21:03 | PC.NURSE ---
on phone with dr. Dunham from
--- NOTE | 2021-04-20 21:13 | PC.NURSE ---
call placed to [facility] at this time. waiting admissions clinician from dr barrios.
--- NOTE | 2021-04-20 22:58 | PC.NURSE ---
contacted [facility]onya[facility] for oxygen delivery. faxed information to [phone]
[2021-04-20 23:07] LABS: Basophils % 0.5 % (0.1-2.0); Eosinophils # 0.1 K/mm3 (0.0-0.4); Eosinophils % 1.7 % (0.1-12.0); Hemoglobin 7.8 g/dL (12.2-16.2); Lymphocytes # 0.9 K/mm3 (0.7-4.5); Lymphocytes % 10.3 % (10-50); Mean Corpuscular HGB Conc 31.1 g/dL (31.8-35.4); Mean Corpuscular Hemoglobin 32.1 pg (27.0-31.2); Mean Corpuscular Volume 103.3 fl (81-99); Mean Platelet Volume 9.1 fl (7.4-10.4); Monocytes # 0.3 K/mm3 (0.1-1.0); Monocytes % 3.2 % (1.7-9.3); Neutrophils # 7.1 K/mm3 (1.8-7.8); Neutrophils % 84.4 % (37.0-80.0); Platelet Count 266 K/mm3 (142-424); Red Blood Count 2.42 M/mm3 (4.20-5.40); Red Cell Distribution Width 13.6 % (11.5-17.5); White Blood Count 8.4 K/mm3 (4.8-10.8)
--- NOTE | 2021-04-20 23:10 | HMH.EDGENADL ---
ED Disposition <UzmakwakuCrys - Last Filed: 04/20/21 23:19> Condition on Discharge: Fair Time of Disposition: 07:04 - Critical Care Critical Care Time: No <Jasmyn Lloyd - Last Filed: 04/21/21 07:48> Clinical Impression: Epistaxis Disposition: Admitted as Observation Instructions: DI for Nosebleed Referrals: Ulises Judd MD [Primary Care Provider] - Attestation: On 04/20/21, the high probability of a clinically significant, sudden or life threatening deterioration of the following system(s) required my full and direct attention, intervention and personal management. The time I documented below is in addition to time spent performing reported procedures but includes the following listed in this critical care notation. Medical Decision Making - Medical Records Medical records reviewed: Yes: I reviewed the patient's medical records. - Tavo Dennis Pt receiving controlled substance: No - Lab Data Result diagrams: 04/20/21 22:50 <Crys Perez - Last Filed: 04/20/21 23:19> - Medical Records Medical records reviewed: Yes: I reviewed the patient's medical records. - Tavo Dennis Pt receiving controlled substance: No - Lab Data Result diagrams: 04/21/21 07:30 04/20/21 22:50 <Jasmyn Lloyd - Last Filed: 04/21/21 07:48> Vital Signs: 04/20/21 16:38 04/20/21 17:31 04/20/21 18:01 Temperature 97.9 F Temperature Source Oral Pulse Rate 67 76 Pulse Rate [Right Radial] 66 Respiratory Rate 17 16 16 TAR Vitals Timing Blood Pressure 115/64 113/55 L Blood Pressure [Right Arm] 162/81 H Blood Pressure Mean 81 74 Blood Pressure Mean [Right Arm] 108 Blood Pressure Source Blood Pressure Source [Right Arm] Automatic Cuff Blood Pressure Position Blood Pressure Position [Right Arm] Supine 02 Sat by Pulse Oximetry 99 100 100 Oxygen Delivery Method Room Air 04/20/21 18:31 04/20/21 19:30 04/20/21 20:30 Temperature Temperature Source Pulse Rate 75 92 H Pulse Rate [Right Radial] Respiratory Rate 16 TAR Vitals Timing Blood Pressure 109/47 L 116/69 168/93 H Blood Pressure [Right Arm] Blood Pressure Mean 84 Blood Pressure Mean [Right Arm] Blood Pressure Source Automatic Cuff Blood Pressure Source [Right Arm] Blood Pressure Position Sitting Blood Pressure Position [Right Arm] 02 Sat by Pulse Oximetry 96 98 Oxygen Delivery Method Room Air 04/20/21 23:00 04/21/21 00:00 04/21/21 01:00 Temperature 98.0 F Temperature Source Oral Pulse Rate 81 75 74 Pulse Rate [Right Radial] Respiratory Rate 14 12 12 TAR Vitals Timing Pre-Blood Vitals Blood Pressure 152/72 H 143/98 H 175/78 H Blood Pressure [Right Arm] Blood Pressure Mean 110 Blood Pressure Mean [Right Arm] Blood Pressure Source Automatic Cuff Blood Pressure Source [Right Arm] Blood Pressure Position Supine Blood Pressure Position [Right Arm] 02 Sat by Pulse Oximetry 97 97 99 Oxygen Delivery Method Room Air Room Air 04/21/21 01:05 04/21/21 01:10 04/21/21 01:15 Temperature 97.9 F 97.5 F L 98.3 F Temperature Source Oral Oral Oral Pulse Rate 81 80 80 Pulse Rate [Right Radial] Respiratory Rate 12 15 15 TAR Vitals Timing Start Vitals 5 Minute 10 Minute Blood Pressure 170/74 H 162/101 H 125/85 Blood Pressure [Right Arm] Blood Pressure Mean 106 121 98 Blood Pressure Mean [Right Arm] Blood Pressure Source Automatic Cuff Automatic Cuff Automatic Cuff Blood Pressure Source [Right Arm] Blood Pressure Position Supine Supine Supine Blood Pressure Position [Right Arm] 02 Sat by Pulse Oximetry 96 98 98 Oxygen Delivery Method 04/21/21 01:30 04/21/21 01:45 04/21/21 02:00 Temperature 97.4 F L 97.5 F L 98.0 F Temperature Source Oral Oral Oral Pulse Rate 73 73 74 Pulse Rate [Right Radial] Respiratory Rate 12 12 12 TAR Vitals Timing 15 Minute 30 Minute 45 Minute Blood Pressure 153/70 H 144/88 H 146/69 H Blood Pressure [Right Arm]
[2021-04-20 23:17] LABS: Alanine Aminotransferase 27 U/L (12-78); Albumin Level 3.6 g/dl (3.5-5.0); Albumin/Globulin Ratio 1.4 (1.1-1.8); Alkaline Phosphatase 101 U/L (38-126); Anion Gap 10.9 mEq/L (5-15); Aspartate Amino Transferase 38 U/L (14-36); Bilirubin,Total 0.2 mg/dl (0.2-1.3); Blood Urea Nitrogen 20 mg/dl (7-17); Calcium 8.5 mg/dl (8.4-10.2); Carbon Dioxide 26 mmol/L (22.0-30.0); Chloride 106 mmol/L (98-107); Creatinine Clearance Estimated 134 mL/min (50-200); Estimated Glomerular Filt Rate 73 ml/min (>60); GFR (African American) 89 ML/MIN (>60); Globulin 2.6 g/dL (1.3-3.2); Glucose 145 mg/dl (74-100); Potassium 3.9 mmoL/L (3.5-5.1); Sodium 139 mmol/L (136-145); Total Protein,Serum 6.2 g/dl (6.3-8.2)
[2021-04-21] VITALS (49 sets, daily range): BP systolic 101–175; BP diastolic 51–101; PULSE 61–81; RESP 12–20; TEMP 36.3–37; O2SAT 95–100
[2021-04-21 04:11] LABS: Hematocrit 22.8 % (37.0-47.0); Hemoglobin 7.2 g/dL (12.2-16.2)
--- NOTE | 2021-04-21 07:13 | PC.NURSE ---
Page out to dr mayorga. Awaiting a call back
[2021-04-21 07:40] LABS: Hematocrit 23.7 % (37.0-47.0); Hemoglobin 7.5 g/dL (12.2-16.2)
--- NOTE | 2021-04-21 07:41 | PC.NURSE ---
speaking with dr monzon
--- NOTE | 2021-04-21 07:44 | PC.NURSE ---
nues-->mukesh epistaxis anemia obs covid +
--- NOTE | 2021-04-21 08:35 | PC.NURSE ---
Dr Judd at bedside to see pt. states for pt to receive 1L of prbc and to be d/c. states a follow up h/h is not necessary and pt can be d/c following the transfusion.
--- NOTE | 2021-04-21 09:18 | P.PN_ITS ---
Internal Medicine - PN: Subj *Date: 04/21/21 *Time: 09:18 Interval history: Patient is familiar to me and I evaluated her while in the emergency department. Patient presented with a nosebleed for the second time this week. Nosebleeds had begun earlier in the week after nasal swab for Covid. Patient had a decline in H&H. She had presented to the ER overnight and had been given a unit of blood with attempts made by the ER to transfer the patient. As no one could acutely accept her in transfer plan had been to admit the patient. Bleeding had stopped and patient's hemoglobin was stable. Had a long discussion with patient regarding lack of the ENT services at our facility. As bleeding had stopped and hemoglobin was stable the plan was to give the patient additional unit of packed red blood cells and discharge. She had a diagnosis of COVID-19 infection as well and was going to be given Regen-Cov. It was emphasized to the patient that should bleeding recur when she returns home that I recommend she go to a facility with ENT services that can evaluate her promptly such as the [facility]. Exam Vital signs and Labs for Last 24 Hours: Temp Pulse Resp BP Pulse Ox 98.6 F 77 12 138/59 L 99 04/21/21 08:45 04/21/21 09:01 04/21/21 09:01 04/21/21 09:01 04/21/21 08:45 Laboratory Results - last 24 hr 04/20/21 18:06: Hgb 7.8 L, Hct 24.5 L 04/20/21 22:50: WBC 8.4 D, RBC 2.42 L, Hgb 7.8 L, Hct 25.0 L, MCV 103.3 H, MCH 32.1 H, MCHC 31.1 L, RDW 13.6, Plt Count 266, MPV 9.1, Neut % (Auto) 84.4 H, Lymph % (Auto) 10.3, [place] % (Auto) 3.2, Eos % (Auto) 1.7, Baso % (Auto) 0.5, Neut # (Auto) 7.1, Lymph # (Auto) 0.9, [place] # (Auto) 0.3, Eos # (Auto) 0.1, Baso # (Auto) 0.0 04/20/21 22:50: Sodium 139, Potassium 3.9, Chloride 106, Carbon Dioxide 26, Anion Gap 10.9, BUN 20 H, Creatinine 0.80, Estimated Creat Clear 134, Estimated GFR 73, Est GFR ( Amer) 89, Glucose 145 H, Calcium 8.5, Total Bilirubin 0 .2, AST 38 H, ALT 27, Alkaline Phosphatase 101, Total Protein 6.2 L, Albumin 3.6, Globulin 2.6, Albumin/Globulin Ratio 1.4 04/20/21 22:50: Blood Type AB Positive, Antibody Screen Negative, Crossmatch (AHG) See Detail 04/21/21 04:01: Hgb 7.2 L, Hct 22.8 L 04/21/21 07:30: Hgb 7.5 L, Hct 23.7 L I & O for Last 24 hours: Intake & Output 04/18/21 04/19/21 04/20/21 04/21/21 11:59 11:59 11:59 11:59 Intake Total 306 / 306 Balance 306 / 306 Weight 250 lb - Constitutional no acute distress - *Routine HEENT Exam Comments: Nasal packing is present in both nares - *Routine Respiratory Exam Present: CTA bilaterally - *Routine Cardiovascular Exam Present: RRR Assessment and Plan (1) Atrial fibrillation Status: Acute Category: Medical Code(s): I48.91 - Unspecified atrial fibrillation (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 She can then be discharged home. If patient does not require return to a facility with ENT services outpatient follow-up will be arranged with ENT. She has been advised to hold her Xarelto indefinitely
--- NOTE | 2021-04-21 10:30 | PC.NURSE ---
pt c/o chest fluttering and sob pt nsr on radiographer cardiac catheterization. when pt falls asleep resp even and easy lungs clear.
--- NOTE | 2021-04-21 10:45 | ECG_ITS ---
APPROVED REPORT Exam: Resting ECG HR:65 bpm ECG Measurements Heart Rate 65 AXES ID 152 P 50 QRSd 86 QRS 11 QT 468 T 39 QTc 486 Conclusion Sinus rhythm with premature atrial complexes Abnormal ECG Electronically signed by : Ulises Negrete MD 04/22/2021 08:47:49
== END 2021-04-21 11:44 | disposition home or self-care (01) ==
PROVIDERS: Emergency Medicine; Emergency Provider Emergency Medicine; PCP Family Medicine
DX: R04.0 Epistaxis (principal); I48.0 Paroxysmal atrial fibrillation; F41.8 Other specified anxiety disorders; U07.1 COVID-19; I10 Essential (primary) hypertension; E03.9 Hypothyroidism, unspecified; Z79.899 Other long term (current) drug therapy
CPT/HCPCS: 30903; 36415; 36430; 80053; 85014; 85018; 85025; 86850; 93005; 96365; 96367; 96375; 99282; 99284; J2405; P9016

== ENCOUNTER → 2021-04-30 09:11 | Outpatient (POV) | payer MEDICARE, MEDICAID, SELFPAY ==
[2021-04-30 09:22] VITALS: BP 177/83; PULSE 68; RESP 18; O2SAT 100; BMI 39.1
--- NOTE | 2021-04-30 11:46 | HMH.PAINSOAP ---
[facility] Pain Management SOAP Note Subjective:: Patient is a 60-year-old white female who presents today for follow-up after a right intra-articular knee injection. Patient reports that she got 100% relief with this injection. She has no pain to her right knee at this time. She is complaining, however, of left knee pain which is progressively worsening with no relief of interventional therapies per our clinic. Patient does see Dr. Wasserman and says that she will schedule an appointment to follow back up with him. She is complaining at this time of pain with her spinal cord stimulator. She says that it is causing her to have stimulation in her neck causing significant pain. The patient was scheduled for a takedown of the device, but was diagnosed with Covid at that time and had to postpone the procedure. She is scheduled for May 23. The patient most recently is complaining of frequent nosebleeds. She was having multiple episodes of nosebleeding and did follow-up with an urgent treatment center as well as the emergency room. Patient is on Xarelto for atrial fibrillation. She is currently holding her anticoagulation therapy. She had significant bleeding from her nose with a trip to the emergency room. She was noted to have a perforated septum. The patient says that she is had to get multiple units of blood while inpatient. She is having right ear pain as well now and plans to follow-up with her primary care provider. The patient says that her nosebleeds have subsided at this time. She is scheduled to see Dr. Judd for reevaluation and for lab work regarding her low H&H. Patient is reporting to feel very tired and lethargic since being hospitalized. She is saying that she is having stimulation into her neck area caused by the stimulator. The patient's [employer] spinal cord stimulator was placed for low back pain, however. She says that the stimulator has never given her stimulation in her neck area in the past. She does rate her pain a 5 out of 10. She has not had any visits with the security representative for reprogramming recently. Review of Systems General: No recent weight changes, no fever, no sleep disturbances Respiratory: No cough, no shortness of air, no recurring pulmonary infections Cardiovascular/peripheral vascular: No chest pain, no palpitations, no edema, no shortness of breath Gastrointestinal: No new onset incontinence, normal bowel movements reported Genitourinary: No new onset incontinence Musculoskeletal: Right side neck pain, left knee pain Psychiatric: [Normal mood/affect] Neurological: [Denies weakness in extremities], [denies balance issues] Objective:: Physical exam General: Alert and oriented x3, no acute distress, pleasant and cooperative Lungs: Respirations even and unlabored, symmetrical chest expansion Eyes: PERRL Musculoskeletal: Flexion and extension of cervical [spine] and left knee somewhat guarded secondary to pain, [antalgic gait noted] Neurological: Speech clear, no gross sensory deficit Assessment:: Degenerative disc disease lumbar spine with lumbar radiculopathy symptoms, neck pain, left knee pain, osteoarthritis left knee Plan:: We will schedule the patient a reprogramming visit with [employer] spinal cord stimulator security representative. Patient is scheduled to undergo a takedown of her device on May 23. Of note, the patient is currently holding her Xarelto therapy for a perforated septum and excessive bleeding. She has not had any recent lab work to check her H&H level. She will follow up with her PCP Dr. Judd. 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 The patient is planning to see Dr. Wasserman for her left knee pain which is progressively worsening. She got significant relief of her right knee pain with the injection. We will see the patient back after takedown of her device. Patient has been
== END ==
PROVIDERS: Visit Provider Clinical Nurse Specialist Family Health
DX: M51.16 Intervertebral disc disorders with radiculopathy, lumbar region (principal); M54.2 Cervicalgia; M17.9 Osteoarthritis of knee, unspecified
CPT/HCPCS: 99212; G0463

== ENCOUNTER → 2021-05-11 09:43 | Outpatient (CLI) | payer MEDICARE, MEDICAID, SELFPAY | PROVIDERS: PCP Family Medicine; Visit Provider Family Medicine | DX: R56.9 Unspecified convulsions (principal) | CPT/HCPCS: 95819 ==

== ENCOUNTER 2021-05-17 00:08 | Emergency (ER) | payer MEDICARE, MEDICAID, SELFPAY ==
[2021-05-17 00:10] VITALS: BP 163/81; PULSE 60; RESP 16; TEMP 36.6; O2SAT 96; BMI 37.3
[2021-05-17 01:00] VITALS: BP 149/80; PULSE 60; O2SAT 99
--- NOTE | 2021-05-17 01:18 | HMH.EDEPIS ---
ED Disposition Clinical Impression: Epistaxis not due to trauma Disposition: Home, Self-Care Condition on Discharge: Good Instructions: DI for Nosebleed Additional Instructions: see dr shearer at 0900 Referrals: Ulises Judd MD [Primary Care Provider] - Fortunato Shearer MD [Staff Physician] - - Critical Care Critical Care Time: No Attestation: On 05/17/21, the high probability of a clinically significant, sudden or life threatening deterioration of the following system(s) required my full and direct attention, intervention and personal management. The time I documented below is in addition to time spent performing reported procedures but includes the following listed in this critical care notation. Medical Decision Making - Medical Records Medical records reviewed: Yes: I reviewed the patient's medical records. - Tavo Inquiry Pt receiving controlled substance: No Vital Signs: 05/17/21 00:10 05/17/21 01:00 Temperature 97.8 F Temperature Source Oral Pulse Rate 60 Pulse Rate [Apical] 60 Respiratory Rate 16 Blood Pressure 149/80 H Blood Pressure [Right Arm] 163/81 H Blood Pressure Mean [Right Arm] 108 Blood Pressure Source [Right Arm] Automatic Cuff Blood Pressure Position [Right Arm] Sitting 02 Sat by Pulse Oximetry 96 99 Oxygen Delivery Method Room Air Room Air - Physician Consults Physician Consulted: jessica Reason -: Pt condition Epistaxis HPI - General Chief complaint: Epistaxis Stated complaint: nose bleed Time Seen by Provider: 05/17/21 00:15 Mode of Arrival: Ambulatory Source of Information: Patient, Medical Record Limitations: No Limitations Description of Symptoms (Recalled from ER Triage Doc. by RN): patient states that throughout the day she has had intermittent nose bleeds. States that she has a history of them and has been unable to get them to stop. - History of Present Illness HPI Narrative: nosebleed during the day and persisted into tonight - has hx of nosebleeds - not on xarelto at this time complaint: epistaxis Location: bilateral nostril Onset (ago): hour(s) Duration: intermittent Context: history of previous Treatment prior to arrival: stuffed nose with tissue - Related Data Home Medications Medication Instructions Recorded Confirmed cholecalciferol (vitamin D3) 25 1,000 unit PO DAILY 07/23/17 04/26/21 mcg (1,000 unit) capsule furosemide 40 mg tablet 80 mg PO DAILY 07/23/17 04/26/21 levothyroxine 100 mcg capsule 125 mcg PO DAILY 07/23/17 04/26/21 naproxen 500 mg tablet 500 mg PO Q12H PRN 07/23/17 04/26/21 venlafaxine 75 mg capsule,extended 150 mg PO BID 07/23/17 04/26/21 release 24 hr zinc acetate 50 mg (zinc) capsule 50 mg PO DAILY 07/23/17 04/26/21 Potassium Chloride [Pot Chlor 10 10 meq PO BID 08/20/17 04/26/21 mEq Tab] Topiramate 50 mg PO BID 08/20/17 04/26/21 hydrocodone 7.5 mg-acetaminophen 1 tab PO Q4-6H PRN 09/04/17 04/26/21 300 mg tablet Buspirone HCl [Buspar 10mg 10 mg PO BID 05/06/18 04/26/21 tablet] Ferrous Sulfate [Ferrous Sulfate 325 mg PO DAILY 05/06/18 04/26/21 325mg Tablet] Pramipexole Di-HCl [Mirapex 1mg 1 mg PO TID 05/06/18 04/26/21 tablet] rivaroxaban 10 mg tablet 20 mg PO DAILY 08/12/19 04/26/21 Escitalopram Oxalate [Lexapro] 10 mg PO DAILY 05/28/20 04/26/21 Melatonin 1 mg PO DAILY 05/28/20 04/26/21 Pantoprazole Sodium 40 mg PO DAILY 05/28/20 04/26/21 Diclofenac Sodium [Pennsaid] 2 gm TP QID 04/13/21 04/26/21 buspirone 15 mg tablet 15 mg PO DAILY tab 04/26/21 04/26/21 vitamin B complex-folic acid ER 1 tab PO DAILY 04/26/21 04/26/21 400 mcg tablet,extended release Azelastine HCl [Azelastine Nasal 2 spray NOSTRIL-B DAILY 05/15/21 05/15/21 [place] 30mL Bottle] Sodium Chloride/Aloe Vera [[place] 14.1 gm NS BID 05/15/21 05/15/21 Saline Nasal Gel] Allergies Allergy/AdvReac Type Severity Reaction Status Date / Time hyaluronic acid AdvReac Severe Verified 04/26/21 10:19 [From [employer]]
--- NOTE | 2021-05-17 02:29 | PC.NURSE ---
When discussing discharge paperwork with patient, it was noted that she was beginning to bleed from her left nare and she complained of drainage in the back of her throat. MD notified and requested patient wait for the bleeding to stop before being discharged. After roughly 10 minutes the patients bleeding had not subsided so MD reevaluated and repacked her nose. Patient again was told to wait for additional 20 minutes post procedure to see if the bleeding would subside. Upon reevaluation patient states that she no longer feels any drainage and the bleeding as subsided as well. Patient was informed to follow up with Doctor Shearer in the morning at 0900.
[2021-05-17 02:32] VITALS: BP 149/80; PULSE 65; RESP 18; TEMP 36.6; O2SAT 97
== END 2021-05-17 02:34 | disposition home or self-care (01) ==
PROVIDERS: Emergency Provider Emergency Medicine; PCP Family Medicine
DX: R04.0 Epistaxis (principal); I48.91 Unspecified atrial fibrillation; F41.8 Other specified anxiety disorders; E78.5 Hyperlipidemia, unspecified; I10 Essential (primary) hypertension; E03.9 Hypothyroidism, unspecified; Z79.899 Other long term (current) drug therapy
CPT/HCPCS: 30901 ×2; 99282

== ENCOUNTER → 2021-05-29 11:54 | Outpatient (CLI) | payer MEDICARE, MEDICAID, SELFPAY | PROVIDERS: PCP Family Medicine; Visit Provider Nurse Practitioner Family | DX: E66.01 Morbid (severe) obesity due to excess calories (principal); I10 Essential (primary) hypertension; I48.91 Unspecified atrial fibrillation; R04.0 Epistaxis; R06.00 Dyspnea, unspecified; Z68.36 Body mass index [BMI] 36.0-36.9, adult | CPT/HCPCS: 93270 ==

== ENCOUNTER → 2021-06-01 11:12 | Outpatient (CLI) | payer MEDICARE, MEDICAID, SELFPAY ==
--- NOTE | 2021-06-01 11:12 | CA_ITS ---
APPROVED REPORT EXAM: Comprehensive 2D, Doppler, and color-flow Echocardiogram Accreditation Manager: Becky Martines RT(R) Ht: 5 ft 7 in Wt: 234lbs BSA: 2.16 BP: 126/84 mmHg Indications: SOA, HTN, obesity, hyperlipidemia, hx of ablation, hx AFIB, Abn EKG 2D Dimensions LVOT 2.09 cm (M/F) 1.5-2.5 LVEF (Doss's) 60.20 % F: 54 - 74 LV Volume 128.20 mL F: 46 - 106 LV Volume Index 59.35 mL/m2 F: 29 - 61 LA Volume 74.30 mL LA Volume Index 34.39 mL/m2 (M/F) 16-34 M-Mode Dimensions RVDd 3.14 cm (0.9-2.6) LA Diam 4.64 cm (1.9-4.0) LVDd 5.19 cm (3.5-5.7) Ao Diam 2.99 cm (2.0-3.7) LVDs 3.62 cm (3.5-5.7) IVSd 0.89 cm (0.6-1.1) PWd 0.85 cm (0.6-1.1) EF (Teich) 57.20% FS 30.30% EDV (Teich) 128.90 mL ESV (Teich) 55.20 mL LV Diastology E Decel Time 160.00 (160-240 msec) E/A Ratio 0.8 MED E' 6.40 (< 7 cm/sec) E'/MED E' Ratio 13.08 (>14) LAT E' 7.80 (<10 cm/sec) E/LAT E' Ratio 10.73 (>14) Mitral Valve MV E Max Connor. 84.00 (40-130 cm/s) MV A Velocity 101.00 (40-130 cm/s) E/A Ratio 0.83 MV Decel. Time 160.00 (160-240 ms) MV PHT 47.00 ms Left Ventricle Left atrium is mildly enlarged, left ventricle is normal size, mild concentric left ventricular hypertrophy, visually estimated ejection fraction 55% with no regional wall motion abnormality, grade 1 diastolic dysfunction seen without tissue Doppler evidence of raise left atrial pressure. Right Ventricle Right atrium and right ventricle are mildly enlarged with normal contractility. Aortic Valve Aortic valve is minimally thickened and fibrosed, there is no aortic stenosis or aortic insufficiency. Mitral Valve Mitral valve grossly normal, there is trace mitral regurgitation. Tricuspid Valve Tricuspid valve grossly normal, there is trace tricuspid regurgitation, tricuspid regurgitation jet velocity is inadequate for calculation of the right ventricular systolic pressure. Pulmonic Valve Pulmonic valve is poorly visualized. Great Vessels Aortic root is normal size. Inferior vena cava is normal size with normal inspiratory collapse. Pericardium No significant pericardial effusion noted. Conclusion 1. Mild biatrial enlargement, normal left ventricular size, mild concentric left ventricular hypertrophy, visually estimated ejection fraction 55% with no regional wall motion abnormality, grade 1 diastolic dysfunction seen without tissue Doppler evidence of raise left atrial pressure. 2. Mildly enlarged right ventricle with normal contractility. 3. Trace mitral and tricuspid regurgitation. 4. No significant pericardial effusion noted. 5. Inferior vena cava normal size with normal inspiratory collapse. Electronically signed by : Tushar Waters MD 06/01/2021 15:52:19
== END ==
PROVIDERS: PCP Family Medicine; Visit Provider Nurse Practitioner Family
DX: E66.01 Morbid (severe) obesity due to excess calories (principal); I10 Essential (primary) hypertension; I48.91 Unspecified atrial fibrillation; R04.0 Epistaxis; R06.00 Dyspnea, unspecified; Z79.01 Long term (current) use of anticoagulants; Z68.36 Body mass index [BMI] 36.0-36.9, adult
CPT/HCPCS: 93306

== ENCOUNTER → 2021-06-18 11:12 | Outpatient (POV) | payer MEDICARE, MEDICAID, SELFPAY ==
[2021-06-18 11:43] VITALS: BP 179/89; PULSE 77; RESP 18; O2SAT 96; BMI 35.9
--- NOTE | 2021-06-18 11:48 | HMH.PAINSOAP ---
[facility] Pain Management SOAP Note Subjective:: Patient is a pleasant 60-year-old female who comes in here today for follow-up. Patient is currently being treated for degenerative disc disease of the lumbar spine with lumbar radiculopathy symptoms, neck pain, left knee pain. Patient has a [employer] spinal cord stimulator. When we last saw this patient, she was complaining of stimulation to her neck that was not there before. Due to her recent weight loss, her stimulator has been moving and flipped. We had scheduled her to get this fixed on May 23, however, she was having massive nosebleeding where she even had to go to the emergency department for this. We had to cancel her procedure because of this. Now, patient says that they found a mass in her sinuses that is causing her nosebleeds. She says that she cannot get an MRI because of her stimulator. She is scheduled for a CT of her head tomorrow. She would like to get the stimulator explanted since it has not been providing her relief. She talked to the [employer] licensing representative last week who said that her battery is completely . She rates her pain today as 7 out of 10. Her Tavo number is [phone] with a morphine equivalent of 30. Review of Systems General: No recent weight changes, no fever, no sleep disturbances Respiratory: No cough, no shortness of air, no recurring pulmonary infections Cardiovascular/peripheral vascular: No chest pain, no palpitations, no edema, no shortness of breath Gastrointestinal: No new onset incontinence, normal bowel movements reported Genitourinary: No new onset incontinence Musculoskeletal: Low back pain Psychiatric: [Normal mood/affect] Neurological: [Denies weakness in extremities], [denies balance issues] Objective:: Physical exam General: Alert and oriented x3, no acute distress, pleasant and cooperative Lungs: Respirations even and unlabored, symmetrical chest expansion Eyes: PERRL Musculoskeletal: Flexion and extension of lumbar [spine] somewhat guarded secondary to pain, [antalgic gait noted] Neurological: Speech clear, no gross sensory deficit Assessment:: Degenerative disc disease of the lumbar spine with lumbar radiculopathy symptoms Plan:: Patient says that they recently found a mass behind her sinuses that could be causing her nosebleeds. She is scheduled for CT scan tomorrow. Patient would like to get her stimulator explanted since it has not been helping her. She also needs to get an MRI. We will schedule patient for the explant of her [employer] spinal cord stimulator. Risks and benefits of the procedure have been explained to the patient. Patient would like to proceed with the procedure. Patient has been instructed to contact the clinic with any concerns before the next appointment. Dr. Barnett has reviewed this note and agrees with this plan of care. This note was dictated using voice recognition software and make contain errors or omissions. [facility] History Medical History: Reports:: Anxiety, Arrhythmia, Atrial Fibrillation, Depression, Hyperlipidemia, Hypertension Denies:: Cancer, Diabetes Mellitus Type 1, Diabetes Mellitus Type 2, Internal Pacemaker, MRSA, Seizures *Have you ever received a pneumonia vaccine?: No *Have you received a flu vaccine this season?: Yes Other Medical History: Reports: Arthritis, Hypothyroidism, Thyroid Disease, Other. Denies: Blood Transfusion Reaction Laterality Cases: Left: Arthroscopy Knee Other Surgeries: Yes: Bariatric Surgery, Cardiac Catheterization, Cardiac Surgery, Cholecystectomy, Colonoscopy, Hysterectomy-Total, Other. No: Pacemaker Amputation: No Fractures: Yes (right first toe fracture, 4th toe) - *Social History Smoking Status: Former smoker #Yrs smoked (if former smoker): 2 Alcohol Intake: former Substance Use Type: denies use *Occupational Status:: unemployed Housing: house Household Members: spouse *Travel in the last 8 weeks: None - P
== END ==
PROVIDERS: Visit Provider Clinical Nurse Specialist Family Health
DX: M51.16 Intervertebral disc disorders with radiculopathy, lumbar region (principal)
CPT/HCPCS: 99212; G0463

== ENCOUNTER → 2021-08-13 12:46 | Outpatient (CLI) | payer MEDICARE, MEDICAID, SELFPAY ==
[2021-08-13 17:22] LABS: Basophils # 0.1 K/mm3 (0-0.2); Basophils % 0.9 % (0.1-2.0); Eosinophils # 0.7 K/mm3 (0.0-0.4); Eosinophils % 12.2 % (0.1-12.0); Hematocrit 37.2 % (37.0-47.0); Hemoglobin 11.7 g/dL (12.2-16.2); Lymphocytes # 1.3 K/mm3 (0.7-4.5); Lymphocytes % 22.2 % (10-50); Mean Corpuscular HGB Conc 31.4 g/dL (31.8-35.4); Mean Corpuscular Hemoglobin 30.9 pg (27.0-31.2); Mean Corpuscular Volume 98.5 fl (81-99); Mean Platelet Volume 8.5 fl (7.4-10.4); Monocytes # 0.2 K/mm3 (0.1-1.0); Monocytes % 3.9 % (1.7-9.3); Neutrophils # 3.5 K/mm3 (1.8-7.8); Neutrophils % 60.7 % (37.0-80.0); Platelet Count 300 K/mm3 (142-424); Red Blood Count 3.78 M/mm3 (4.20-5.40); Red Cell Distribution Width 13.7 % (11.5-17.5); White Blood Count 5.7 K/mm3 (4.8-10.8)
[2021-08-13 17:58] LABS: Anion Gap 9.7 mEq/L (5-15); Blood Urea Nitrogen 23 mg/dl (7-17); Calcium 9.2 mg/dl (8.4-10.2); Carbon Dioxide 28 mmol/L (22.0-30.0); Chloride 105 mmol/L (98-107); Estimated Glomerular Filt Rate 57 ml/min (>60); GFR (African American) 68 ML/MIN (>60); Glucose 97 mg/dl (74-100); Potassium 3.7 mmoL/L (3.5-5.1); Sodium 139 mmol/L (136-145)
== END ==
PROVIDERS: PCP Family Medicine; Visit Provider Anesthesiology
DX: M51.36 Other intervertebral disc degeneration, lumbar region (principal)
CPT/HCPCS: 36415; 80048; 85025

== ENCOUNTER 2021-08-15 12:04 | Day surgery (SDC) | payer MEDICARE, MEDICAID, SELFPAY ==
[2021-08-14 10:05] VITALS: BMI 34.7
[2021-08-15 12:30] VITALS: BP 144/75; PULSE 61; RESP 18; TEMP 36.8; O2SAT 100
--- NOTE | 2021-08-15 12:57 | P.PN_ITS ---
[facility] Anesthesia Checklist - Patient Identification Patient Identification: Arm Band - Structural Data Admitted From: Home Planned Operative Procedure/s: Stimulator explant Consent for Planned Operative Procedure(s) Verified: Yes - NPO Status Verified Time NPO: 00:00 - Additional verifications Anesthesia Reactions: Yes (N/V) Hx Blood Transfusions: No Blood Transfusion Reaction: No - Airway Assessment C-Spine Mobility Assessed: Yes TMJ Mobility Assessed: Yes Dentition: Edentulous - Neurological Assessment Level of Consciousness: Awake Hx Seizures: No Numbness or tingling in extremities: No - Anesthesia Plan Anesthesia Risk discussed: Yes Anesthesia Plan: Verified ASA Class: III Anesthesia Type: MAC [facility] History I have reviewed the patient's past medical history: Yes Medical History: Reports:: Anxiety, Arrhythmia, Atrial Fibrillation, Depression, Hyperlipidemia, Hypertension Denies:: Cancer, Diabetes Mellitus Type 1, Diabetes Mellitus Type 2, Internal Pacemaker, MRSA, Seizures *Have you ever received a pneumonia vaccine?: No *Have you received a flu vaccine this season?: Yes Other Medical History: Reports: Arthritis, Hypothyroidism, Thyroid Disease, Other. Denies: Blood Transfusion Reaction Anesthesia experience/problems:: None Laterality Cases: Left: Arthroscopy Knee Other Surgeries: Yes: Bariatric Surgery, Cardiac Catheterization, Cardiac Surgery, Cholecystectomy, Colonoscopy, Hysterectomy-Total, Other. No: Pacemaker Amputation: No Fractures: Yes (right first toe fracture, 4th toe) - *Social History Last grade of school completed: High school graduate Smoking Status: Former smoker #Yrs smoked (if former smoker): 2 Alcohol Intake: never Substance Use Type: denies use *Occupational Status:: disabled Housing: house Household Members: spouse *Travel in the last 8 weeks: None - Psychiatric History Pschychiatric History:: Reports:: Anxiety, Depression Family Hx:: Diabetes, Heart Attack
[2021-08-15 15:37] VITALS: BP 135/72; PULSE 71; RESP 18; TEMP 36.5; O2SAT 99
[2021-08-15 15:52] VITALS: BP 158/89; PULSE 64; RESP 18; O2SAT 99
--- NOTE | 2021-08-15 16:00 | HMH.OPNOTE ---
Date of procedure: 08/15/21 Pre-op Diagnosis:: Nonfunctioning spinal cord stimulator system Post-op Diagnosis:: Same Procedure performed:: Removal of spinal cord stimulator system generator and leads Surgeon:: Ned Barnett MD BUSINESS WRITER:: Jumana Osborne Anesthesia: MAC Estimated blood loss (mL): 5 Clinical Note:: This patient is a pleasant 60-year-old white female who we are treating for low back pain with lumbar radiculopathy symptoms. She has had a [employer] spinal cord stimulator in place. This stimulator has flipped several times as the patient has lost a significant amount of weight. Her leads have migrated the system is nonfunctioning at this time. Her battery is completely . She would like explant of her spinal cord stimulator system as it is not helping at all. Operative findings:: None Operative note:: Informed consent was obtained risk and benefits of the procedure were explained to the patient. Patient was taken to the procedure room. The skin and subcutaneous tissues overlying the stimulator generator and lead anchors were anesthetized using lidocaine. I made an incision over the generator and over the leads. I dissected down and explanted the generator and leads. We took final pictures to confirm that all leads and generator were removed. Both incisions were irrigated with antibiotic solution. Both incisions were then closed with 2-0 Vicryl followed by 4-0 nylon and mya. A pressure dressing was placed over both incisions. Patient was taken recovery in stable condition. Patient tolerated the procedure well with no complications. Patient was discharged home neurologically intact with good relief of pain symptoms. We also did discharge her with Bactrim DS twice a day for 5 days. Plan and disposition: We will follow-up with this patient in 1 week for wound check. We will follow-up in 2 weeks for suture and staple removal. If she has any problems or questions she is to call us back in the pain clinic. Condition: stable Disposition: PACU Complications:: None
[2021-08-15 16:26] VITALS: BP 171/91; PULSE 64; RESP 18; O2SAT 99
== END 2021-08-15 16:26 | disposition home or self-care (01) ==
LOC: OR 12:06
PROVIDERS: PCP Family Medicine; Visit Provider Anesthesiology
DX: T85.192A Other mechanical complication of implanted electronic neurostimulator of spinal cord electrode (lead), initial encounter (principal); F41.9 Anxiety disorder, unspecified; I48.91 Unspecified atrial fibrillation; F32.9 Major depressive disorder, single episode, unspecified; E78.5 Hyperlipidemia, unspecified; I10 Essential (primary) hypertension; M19.90 Unspecified osteoarthritis, unspecified site; E03.9 Hypothyroidism, unspecified; Z87.891 Personal history of nicotine dependence; Z83.3 Family history of diabetes mellitus; Z82.3 Family history of stroke; Z88.8 Allergy status to other drugs, medicaments and biological substances; Z79.899 Other long term (current) drug therapy
CPT/HCPCS: 63661; 63688; 96374; J3370

== ENCOUNTER → 2021-08-23 11:04 | Outpatient (POV) | payer MEDICARE, MEDICAID, SELFPAY ==
[2021-08-23 11:26] VITALS: BP 146/84; PULSE 87; RESP 18; O2SAT 98; BMI 35.2
--- NOTE | 2021-08-23 12:21 | P.CONS_ITS ---
[facility] Pain Management SOAP Note Subjective:: Patient is a very pleasant 60-year-old white female who presents today for follow-up and wound check. She went removal of the spinal cord stimulator system including the generator and leads on 08/15/[address] VALADEZ. She states that overall she is doing well and denies any complications from this procedure. Denies any excessive drainage, redness, or pain at the incision site. She is wondering when she can have the mya removed. She rates her pain today as a 6 out of 10. 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 She states that she underwent mass excision and pathology results demonstrated a benign lesion. Objective:: General: Alert and oriented x3, no acute distress, pleasant and cooperative Lungs: Resps E/U, symmetric chest expansion Eyes: PERRL Musculoskeletal: limited flexion and extension of the lumbar spine secondary to pain. Deep tendon reflexes were normal in bilateral lower extremities. Motor exam was grossly intact in the bilateral lower extremities, antalgic gait noted. Skin: Both incision sites appear to be clear dry and intact and are healing appropriately. Neurological: Speech is clear, clinical cytogeneticist scientist equal, no gross sensory deficits Assessment:: Degenerative disc disease of the lumbar spine with lumbar radiculopathy Plan:: Wound check was performed today and incision sites appear to be healing appropriately. I discussed with the patient that we will remove mya at the next visit in 1 week. We will follow-up with this patient in 1 week for staple removal. [facility] #[id number] was reviewed and appropriate. [facility] History Medical History: Reports:: Anxiety, Arrhythmia, Atrial Fibrillation, Depression, Hyperlipidemia, Hypertension Denies:: Cancer, Diabetes Mellitus Type 1, Diabetes Mellitus Type 2, Internal Pacemaker, MRSA, Seizures *Have you ever received a pneumonia vaccine?: No *Have you received a flu vaccine this season?: Yes Other Medical History: Reports: Arthritis, Hypothyroidism, Thyroid Disease, Other. Denies: Blood Transfusion Reaction Laterality Cases: Left: Arthroscopy Knee Other Surgeries: Yes: Bariatric Surgery, Cardiac Catheterization, Cardiac Surgery, Cholecystectomy, Colonoscopy, Hysterectomy-Total, Other. No: Pacemaker Amputation: No Fractures: Yes (right first toe fracture, 4th toe) - *Social History Smoking Status: Former smoker #Yrs smoked (if former smoker): 2 Alcohol Intake: never Substance Use Type: denies use *Occupational Status:: unemployed Housing: house Household Members: spouse *Travel in the last 8 weeks: None - Psychiatric History Pschychiatric History:: Reports:: Anxiety, Depression Family Hx:: Diabetes, Heart Attack
== END ==
PROVIDERS: Visit Provider Anesthesiology Pain Medicine
DX: M51.16 Intervertebral disc disorders with radiculopathy, lumbar region (principal)
CPT/HCPCS: 99212; G0463

== ENCOUNTER → 2021-08-30 14:50 | Outpatient (POV) | payer MEDICARE, MEDICAID, SELFPAY ==
--- NOTE | 2021-08-30 15:35 | HMH.PAINSOAP ---
[facility] Pain Management SOAP Note Subjective:: Is a very pleasant 60-year-old white female who presents today follow-up. She is currently being treated for degenerative disc disease of the lumbar spine with lumbar radiculopathy. She recently underwent a spinal cord stimulator system removal including the generator and leads on August 15, 2021. She states that overall she is doing okay but she continues to experience chronic low back and leg pain. She states that in the past she experience adequate pain relief from epidural injections and is wanting repeat injections in the future. she is currently prescribed hydrocodone 5 mg 1 tablet p.o. 4 times daily by an outside provider. She rates her pain today as a 7 out of 10. Objective:: General: Alert and oriented x3, no acute distress, pleasant and cooperative Lungs: Resps E/U, symmetric chest expansion Eyes: PERRL Musculoskeletal: limited flexion and extension of the lumbar spine secondary to pain. Deep tendon reflexes were normal in bilateral lower extremities. Motor exam was grossly intact in the bilateral lower extremities, antalgic gait noted. skin: Incision sites appear to be healing appropriately with mya intact Neurological: Speech is clear, hand bander equal, no gross sensory deficits Assessment:: Degenerative disc disease of the lumbar spine with lumbar radiculopathy Plan:: I discussed with the patient that her incision sites are healing appropriately and we will remove mya today. I discussed with the patient we will follow-up with her in 1 month for reassessment of her chronic pain symptoms and further evaluation for lumbar epidural steroid injections to help manage her chronic low back and leg pain symptoms. Tavo and prior prior drug screens were reviewed and appropriate. [facility] History Medical History: Reports:: Anxiety, Arrhythmia, Atrial Fibrillation, Depression, Hyperlipidemia, Hypertension Denies:: Cancer, Diabetes Mellitus Type 1, Diabetes Mellitus Type 2, Internal Pacemaker, MRSA, Seizures *Have you ever received a pneumonia vaccine?: No *Have you received a flu vaccine this season?: Yes Other Medical History: Reports: Arthritis, Hypothyroidism, Thyroid Disease, Other. Denies: Blood Transfusion Reaction Laterality Cases: Left: Arthroscopy Knee Other Surgeries: Yes: Bariatric Surgery, Cardiac Catheterization, Cardiac Surgery, Cholecystectomy, Colonoscopy, Hysterectomy-Total, Other. No: Pacemaker Amputation: No Fractures: Yes (right first toe fracture, 4th toe) - *Social History Smoking Status: Former smoker #Yrs smoked (if former smoker): 2 Alcohol Intake: never Substance Use Type: denies use *Occupational Status:: unemployed Housing: house Household Members: spouse *Travel in the last 8 weeks: None - Psychiatric History Pschychiatric History:: Reports:: Anxiety, Depression Family Hx:: Diabetes, Heart Attack
[2021-08-30 15:49] VITALS: BP 154/88; PULSE 68; RESP 20; TEMP 36.7; O2SAT 97; BMI 34.9
== END ==
PROVIDERS: Visit Provider Anesthesiology Pain Medicine
DX: M51.16 Intervertebral disc disorders with radiculopathy, lumbar region (principal)
CPT/HCPCS: 99212; G0463

== ENCOUNTER → 2021-09-04 14:21 | Outpatient (CLI) | payer MEDICARE, MEDICAID, SELFPAY ==
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
== END ==
PROVIDERS: PCP Family Medicine; Visit Provider Family Medicine
DX: M25.511 Pain in right shoulder (principal); M75.101 Unspecified rotator cuff tear or rupture of right shoulder, not specified as traumatic
CPT/HCPCS: 73030

== ENCOUNTER 2021-09-14 11:02 | Outpatient (RCR) | payer MEDICARE, MEDICAID, SELFPAY ==
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
== END 2021-09-14 11:05 | disposition home or self-care (01) ==
LOC: OT 11:02
PROVIDERS: PCP Family Medicine; Visit Provider Family Medicine
DX: M75.101 Unspecified rotator cuff tear or rupture of right shoulder, not specified as traumatic (principal)
CPT/HCPCS: 97165

== ENCOUNTER → 2021-10-01 09:13 | Outpatient (POV) | payer MEDICARE, MEDICAID, SELFPAY ==
[2021-10-01 09:23] VITALS: BP 144/79; PULSE 59; RESP 18; TEMP 36.4; O2SAT 100; BMI 35.2
--- NOTE | 2021-10-01 09:42 | HMH.PAINSOAP ---
[facility] Pain Management SOAP Note Subjective:: Patient is a pleasant 60-year-old female who presents today for follow-up. Patient is being treated for degenerative disc disease of lumbar spine with lumbar radiculopathy symptoms, bilateral sacroiliitis, bilateral knee pain. Patient previously had a spinal cord stimulator system but this was removed on August 15, 2021. She was getting relief from the spinal cord stimulator special for her low back that radiates to bilateral lower extremities. However, she developed a mass behind her sinus. She could not get an MRI because of the spinal cord stimulator so she decided to get it explanted to further evaluate her sinus mass. For pain, we have been managing this patient with ejective therapy. Patient is also getting hydrocodone 5 mg 4 times a day from an outside provider. Today, patient is complaining of bilateral upper buttock pain that radiates to her bilateral legs and does not cross her knees. She says that she cannot tolerate any prolonged activity such as sitting, standing, and walking. It is difficult for her to sit down and stand up from a sitting position because of the pain. Denies any recent falls or traumas. Denies any loss of bowel and bladder functions. Review of Systems: General: No recent weight changes, no fever, no sleep disturbances Respiratory: No cough, no shortness of air, no recurring pulmonary infections Cardiovascular/peripheral vascular: No chest pain, no palpitations, no edema, no shortness of breath Gastrointestinal: No new onset incontinence, normal bowel movements reported Genitourinary: No new onset incontinence Musculoskeletal: Low back pain, bilateral hip pain, bilateral knee pain Psychiatric: [Normal mood/affect] Neurological: [Denies weakness in extremities], [denies balance issues] Objective:: Physical Exam: General: Alert and oriented x3, no acute distress, pleasant and cooperative, [on room air] Lungs: Respirations even and unlabored, symmetrical chest expansion Eyes: PERRL Musculoskeletal: Flexion and extension of lumbar [spine] somewhat guarded secondary to pain, [antalgic gait noted], patient is walking with a cane. Bilateral SI are positive for DANIELLE, Arina's, Cochrane's, Gaenslen's, compression, and distraction. Neurological: Speech clear, no gross sensory deficit Assessment:: Bilateral sacroiliitis Degenerative disc disease of lumbar spine with lumbar radiculopathy symptoms Bilateral knee pain Plan:: Patient has been having issues with her bilateral upper buttock pain. It is difficult for her to sit down and stand up from a sitting position. Her bilateral SI are positive for DANIELLE, Arina's, Cochrane's, Gaenslen's, compression, and distraction. We will schedule the patient for a bilateral SI injection. Risk and benefits have been discussed with the patient. Patient would like to proceed with this procedure. Patient has been instructed to contact the clinic with any concerns before the next appointment. Dr. Barnett has reviewed this note and agrees with this plan of care. This note was dictated using voice recognition software and make contain errors or omissions. [facility] History Medical History: Reports:: Anxiety, Arrhythmia, Atrial Fibrillation, Depression, Hyperlipidemia, Hypertension Denies:: Cancer, Diabetes Mellitus Type 1, Diabetes Mellitus Type 2, Internal Pacemaker, MRSA, Seizures *Have you ever received a pneumonia vaccine?: No *Have you received a flu vaccine this season?: Yes Other Medical History: Reports: Arthritis, Hypothyroidism, Thyroid Disease, Other. Denies: Blood Transfusion Reaction Laterality Cases: Left: Arthroscopy Knee Other Surgeries: Yes: Bariatric Surgery, Cardiac Catheterization, Cardiac Surgery, Cholecystectomy, Colonoscopy, Hysterectomy-Total, Other. No: Pacemaker Amputation: No Fractures: Yes (right first toe fracture, 4th toe) - *Social History Smoking Status: Former smoker #Yrs smoked (if former smoker): 2
== END ==
PROVIDERS: Visit Provider Student in an Organized Health Care Education/Training Program
DX: M46.1 Sacroiliitis, not elsewhere classified (principal); M51.16 Intervertebral disc disorders with radiculopathy, lumbar region; M25.561 Pain in right knee; M25.562 Pain in left knee
CPT/HCPCS: 99212; G0463

== ENCOUNTER 2021-10-05 12:10 | Day surgery (SDC) | payer MEDICARE, MEDICAID, SELFPAY ==
[2021-10-05 12:44] VITALS: BP 150/78; PULSE 100; PULSE 68; RESP 18; RESP 20; TEMP 36.7; O2SAT 100; BMI 35.6
[2021-10-05 12:49] VITALS: BP 150/78; PULSE 102; RESP 20
--- NOTE | 2021-10-05 12:49 | P.PCN_ITS ---
- Procedure Date: 10/05/21 Time: 12:49 Anesthesiologist:: Charles Steele CRNA Complications:: None Pre-procedure Diagnosis:: Bilateral sacroiliitis Post-procedure Diagnosis:: Same Indications for Procedure:: Patient has had some significant improvement in her bilateral posterior hip pain with previous SI joint injections. She is having some intense pain over the bilateral posterior hips. Extreme point tenderness over the bilateral SI joints. Procedure Details:: Procedure: Bilateral sacroiliac joint injections under fluoroscopy Informed consent was obtained and the risks and benefits of the procedure were explained to the patient.~ The patient was taken to the procedure room and noninvasive monitors were placed including a noninvasive blood pressure cuff and pulse oximeter.~ The patient was placed prone on the procedure table. Both hips were cleansed using Betadine as a cleansing solution. C-arm fluoroscopy was used to view the right sacroiliac joint.~ The skin and subcutaneous tissues were anesthetized using lidocaine 1.5% and a 25-gauge needle.~ After this, a 22-gauge spinal needle was inserted under fluoroscopic guidance into the inferior aspect of the right sacroiliac joint.~ Omnipaque dye was injected and good spread was seen throughout the joint.~ After this, approximately 5 mL of bupivacaine, 0.25% and Depo-Medrol, 40 mg was incrementally injected into the right sacroiliac joint. We then moved to the left sacroiliac joint.~ The skin and subcutaneous tissues were anesthetized using lidocaine 1.5% and a 25-gauge needle.~ After this, a 22- gauge spinal needle was inserted under fluoroscopic guidance into the inferior aspect of the left sacroiliac joint.~ Omnipaque dye was injected and good spread was seen throughout the joint. After this, approximately 5 mL of bupivacaine, 0.25% and Depo-Medrol, 40 mg was incrementally injected into the left sacroiliac joint.~ The patient tolerated the procedure well with no complications. The patient was observed in the Pain Clinic and then was discharged home neurologically intact. Plan and Disposition:: She was discharged from clinic without difficulty.
[2021-10-05 12:53] VITALS: BP 153/82; PULSE 64; RESP 18; O2SAT 100
== END 2021-10-05 12:54 | disposition home or self-care (01) ==
LOC: SC.PAINP 12:11
PROVIDERS: PCP Family Medicine; Visit Provider Nurse Anesthetist, Certified Registered
DX: M46.1 Sacroiliitis, not elsewhere classified (principal); M51.16 Intervertebral disc disorders with radiculopathy, lumbar region; F41.9 Anxiety disorder, unspecified; F32.A Depression, unspecified; I48.91 Unspecified atrial fibrillation; E78.5 Hyperlipidemia, unspecified; I10 Essential (primary) hypertension; M19.90 Unspecified osteoarthritis, unspecified site; Z88.8 Allergy status to other drugs, medicaments and biological substances
CPT/HCPCS: 27096; G0260; J1040

== ENCOUNTER 2021-10-30 11:16 | Emergency (ER) | payer MEDICARE, MEDICAID, SELFPAY ==
[2021-10-30] VITALS (8 sets, daily range): BP systolic 138–162; BP diastolic 65–81; PULSE 56–70; RESP 13–20; TEMP 36.4–36.8; O2SAT 93–100; BMI 34.4
--- NOTE | 2021-10-30 11:20 | PC.NURSE ---
GODFREY Perez at BS
--- NOTE | 2021-10-30 11:26 | ECG_ITS ---
APPROVED REPORT Exam: Resting ECG HR:64 bpm ECG Measurements Heart Rate 64 AXES DC 173 P 74 QRSd 96 QRS 20 QT 427 T 62 QTc 437 Conclusion SINUS RHYTHM WITH OCCASIONAL SUPRAVENTRICULAR PREMATURE COMPLEXES BORDERLINE ECG UNCONFIRMED REPORT Electronically signed by : Ulises Negrete MD 10/31/2021 17:56:40
[2021-10-30 11:33] LABS: POC Glucose,Bedside 136 (70-110)
--- NOTE | 2021-10-30 11:50 | PC.NURSE ---
ED MD at
--- NOTE | 2021-10-30 11:51 | PC.NURSE ---
ISMAEL ARRIAGA at
--- NOTE | 2021-10-30 11:53 | HMH.EDGENADL ---
ED Disposition Clinical Impression: Generalized weakness, Nausea Disposition: Home, Self-Care Condition on Discharge: Good Instructions: DI for Fatigue, DI for Nausea -- Adult Additional Instructions: follow up PCP return here for worse or any concerns Referrals: Ulises Judd MD [Primary Care Provider] - - Critical Care Critical Care Time: No Attestation: On 10/30/21, the high probability of a clinically significant, sudden or life threatening deterioration of the following system(s) required my full and direct attention, intervention and personal management. The time I documented below is in addition to time spent performing reported procedures but includes the following listed in this critical care notation. Medical Decision Making - Medical Records Medical records reviewed: Yes: I reviewed the patient's medical records. - Tavo Inquiry Pt receiving controlled substance: No Vital Signs: 10/30/21 11:17 10/30/21 11:34 10/30/21 12:00 Temperature 97.5 F L Temperature Source Oral Pulse Rate 61 56 L Pulse Rate [Left Radial] 64 Respiratory Rate 14 20 18 Blood Pressure 148/72 H 140/73 Blood Pressure [Left Arm] 162/81 H Blood Pressure Mean [Left Arm] 108 Blood Pressure Source Automatic Cuff Blood Pressure Source [Left Arm] Automatic Cuff Blood Pressure Position Sitting Blood Pressure Position [Left Arm] Sitting 02 Sat by Pulse Oximetry 100 100 100 Oxygen Delivery Method Room Air Room Air Room Air 10/30/21 13:03 10/30/21 13:45 Temperature Temperature Source Pulse Rate 70 60 Pulse Rate [Left Radial] Respiratory Rate 16 13 Blood Pressure 143/81 H 138/79 Blood Pressure [Left Arm] Blood Pressure Mean [Left Arm] Blood Pressure Source Automatic Cuff Automatic Cuff Blood Pressure Source [Left Arm] Blood Pressure Position Sitting Sitting Blood Pressure Position [Left Arm] 02 Sat by Pulse Oximetry 100 93 L Oxygen Delivery Method Room Air Room Air - Lab Data Lab Results 10/30/21 11:20: POC Glucose 136 H 10/30/21 11:32: WBC 6.5, RBC 4.42, Hgb 13.7, Hct 42.2, MCV 95.4, MCH 31.0, MCHC 32.4, RDW 14.1, Plt Count 263, MPV 8.9, Neut % (Auto) 71.0, Lymph % (Auto) 18.7, [place] % (Auto) 4.6, Eos % (Auto) 4.6, Baso % (Auto) 1.1, Neut # (Auto) 4.6, Lymph # (Auto) 1.2, [place] # (Auto) 0.3, Eos # (Auto) 0.3, Baso # (Auto) 0.1 10/30/21 11:32: Sodium 141, Potassium 4.0, Chloride 107, Carbon Dioxide 26, Anion Gap 12.0, BUN 19 H, Creatinine 0.80, Estimated Creat Clear 118, Estimated GFR 73, Est GFR ( Amer) 89, Glucose 150 H, Calcium 9.6, Total Bilirubin 0.5, AST 48 H, ALT 48, Alkaline Phosphatase 132 H, Troponin I < 0.01, Total Protein 6.7, Albumin 3.9, Globulin 2.8, Albumin/Globulin Ratio 1.4 10/30/21 12:16: Urine Color Yellow, Urine Appearance Clear, Urine pH 5.5, Ur Specific [place] 1.010, Urine Protein Negative, Urine Glucose (UA) Negative, Urine Ketones Negative, Urine Blood Negative, Urine Nitrate Negative, Urine Bilirubin Negative, Urine Urobilinogen 0.2, Ur Leukocyte Esterase Negative, Urine RBC None, Urine WBC 3-5, Ur Squamous Epith Cells 3-5, Urine Bacteria None Result diagrams: 10/30/21 11:32 10/30/21 11:32 Orders (Tests/Meds): ED MEDICATIONS Discontinued Medications Generic Name Dose Route Start Last Admin Trade Name Abq PRN Reason Stop Dose Admin Ondansetron HCl 8 mg 10/30/21 11:53 10/30/21 12:05 Ondansetron 4mg Odt SL 10/30/21 11:54 8 mg ONCE ONE Administration Medical Decision Narrative: ekg by me nsr, sinus arrythmia, no stelev 1240pm reval, aox4, neutro intact, vss, no obvous source for weakness other than jetlag and home meds, or any convcern for emergency distress, ok with plan to avoid driving today and have relative pick up man, f/u pcp General Adult HPI - General Stated complaint: weakness, possible low glucose Time Seen by Provider: 10/30/21 11:53 - History of Present Illness HPI narrative: generalized weakness and nausea, con
[2021-10-30 12:02] LABS: Chloride 107 mmol/L (98-107); Sodium 141 mmol/L (136-145)
[2021-10-30 12:03] LABS: Basophils # 0.1 K/mm3 (0-0.2); Basophils % 1.1 % (0.1-2.0); Eosinophils # 0.3 K/mm3 (0.0-0.4); Eosinophils % 4.6 % (0.1-12.0); Hematocrit 42.2 % (37.0-47.0); Hemoglobin 13.7 g/dL (12.2-16.2); Lymphocytes # 1.2 K/mm3 (0.7-4.5); Lymphocytes % 18.7 % (10-50); Mean Corpuscular HGB Conc 32.4 g/dL (31.8-35.4); Mean Corpuscular Volume 95.4 fl (81-99); Mean Platelet Volume 8.9 fl (7.4-10.4); Monocytes # 0.3 K/mm3 (0.1-1.0); Monocytes % 4.6 % (1.7-9.3); Neutrophils # 4.6 K/mm3 (1.8-7.8); Platelet Count 263 K/mm3 (142-424); Red Blood Count 4.42 M/mm3 (4.20-5.40); Red Cell Distribution Width 14.1 % (11.5-17.5); White Blood Count 6.5 K/mm3 (4.8-10.8)
[2021-10-30 12:05] LABS: Alanine Aminotransferase 48 U/L (12-78); Albumin Level 3.9 g/dl (3.5-5.0); Albumin/Globulin Ratio 1.4 (1.1-1.8); Alkaline Phosphatase 132 U/L (38-126); Aspartate Amino Transferase 48 U/L (14-36); Bilirubin,Total 0.5 mg/dl (0.2-1.3); Blood Urea Nitrogen 19 mg/dl (7-17); Carbon Dioxide 26 mmol/L (22.0-30.0); Creatinine Clearance Estimated 118 mL/min (50-200); Estimated Glomerular Filt Rate 73 ml/min (>60); GFR (African American) 89 ML/MIN (>60); Globulin 2.8 g/dL (1.3-3.2); Total Protein,Serum 6.7 g/dl (6.3-8.2)
[2021-10-30 12:06] LABS: Calcium 9.6 mg/dl (8.4-10.2); Glucose 150 mg/dl (74-100)
--- NOTE | 2021-10-30 12:14 | PC.NURSE ---
Ana RN assisting patient to restroom with wheelchair and back to ED room; no complications
[2021-10-30 12:19] LABS: Troponin I < 0.01 ng/ml (0.00-0.034)
[2021-10-30 12:20] LABS: Microscopic, Urine URINE MICROSCOPIC (MICROSCOPIC)
--- NOTE | 2021-10-30 12:20 | PC.NURSE ---
patient sitting up talking on cell phone at this time
--- NOTE | 2021-10-30 12:25 | PC.NURSE ---
ED MD at speaking with patient on POC
[2021-10-30 12:31] LABS: Appearance,Urine CLEAR (Clear); Bilirubin,Urine Negative (Negative); Blood, Urine Negative (Negative); Color,Urine YELLOW (Yellow); Glucose,Urine (UA) Negative (Negative); Ketones,Urine Negative (Negative); Leukocyte Esterase,Urine Negative (Negative); Nitrate,Urine Negative (Negative); PH,Urine 5.5 (5.0-8.5); Protein,Urine Negative (Negative); Urobilinogen,Urine 0.2 EU/dl (0.2)
--- NOTE | 2021-10-30 13:25 | PC.NURSE ---
GODFREY Perez at BS
--- NOTE | 2021-10-30 13:28 | PC.NURSE ---
pt still drowsy, pt reports she drove herself to the hospital. Notified ER MD going to order pt lunch tray to see if she can eat.
--- NOTE | 2021-10-30 13:31 | PC.NURSE ---
ISMAEL ARRIAGA at to reasses pt.
--- NOTE | 2021-10-30 13:41 | PC.NURSE ---
patient given a lunch tray from dietary; patient sitting up currently trying to eat
--- NOTE | 2021-10-30 14:34 | PC.NURSE ---
entered room to check on pt, pt sleeping. Woke pt up to check on her. Pt reports still feels very drowsy, pt at half her sandwich. Pt reports attempted to call her cousin to come get her-reports they did not answer. Pt states she will try to call them again.
== END 2021-10-30 15:20 | disposition home or self-care (01) ==
PROVIDERS: Emergency Provider Emergency Medicine; PCP Family Medicine
DX: R53.1 Weakness (principal); R11.0 Nausea; I10 Essential (primary) hypertension; I48.91 Unspecified atrial fibrillation; I49.9 Cardiac arrhythmia, unspecified; E03.9 Hypothyroidism, unspecified; M19.90 Unspecified osteoarthritis, unspecified site; M54.9 Dorsalgia, unspecified; G89.29 Other chronic pain; J45.909 Unspecified asthma, uncomplicated; F32.A Depression, unspecified; F41.9 Anxiety disorder, unspecified; F17.210 Nicotine dependence, cigarettes, uncomplicated; Z79.1 Long term (current) use of non-steroidal anti-inflammatories (NSAID); Z79.899 Other long term (current) drug therapy; Z88.8 Allergy status to other drugs, medicaments and biological substances; Z82.49 Family history of ischemic heart disease and other diseases of the circulatory system; Z83.3 Family history of diabetes mellitus
CPT/HCPCS: 80053; 81001; 82962; 84484; 85025; 93005; 99284

== ENCOUNTER → 2021-11-02 14:18 | Outpatient (CLI) | payer MEDICARE, MEDICAID, SELFPAY ==
--- NOTE | 2021-11-02 14:38 | XR_ITS ---
FINAL REPORT CLINICAL HISTORY: pain, old injury to rt great toe and foot FINDINGS: 3 views of the right foot were obtained. There is no acute fracture or dislocation. There is moderate hallux valgus deformity. There is advanced osteoarthritis of the 2nd through 5th tarsometatarsal joints best seen on the oblique views. There is a large plantar spur. IMPRESSION: Advanced osteoarthritis. Reviewed, Interpreted and Dictated by Joe Marx MD Transcribed by Kirit De La Cruz Authenticated by Joe Marx MD on 11/02/2021 04:03:26 PM [facility]
--- NOTE | 2021-11-02 14:38 | XR_ITS ---
FINAL REPORT CLINICAL HISTORY: lynn foot pain FINDINGS: 3 views of the left foot were obtained. There is no acute fracture or dislocation. The bones are osteopenic. There are [id number] hypertrophic changes at the 3rd and 4th tarsometatarsal joints. There is a large plantar spur. IMPRESSION: Mild to moderate hypertrophic changes at the 3rd and 4th tarsometatarsal joints with a large plantar spur. Reviewed, Interpreted and Dictated by Joe Marx MD Transcribed by Kirit De La Cruz Authenticated by Joe Marx MD on 11/02/2021 04:03:32 PM [facility]
== END ==
PROVIDERS: PCP Family Medicine; Visit Provider Podiatrist
DX: M79.672 Pain in left foot (principal); M79.671 Pain in right foot
CPT/HCPCS: 73630

== ENCOUNTER → 2021-11-08 09:24 | Outpatient (POV) | payer MEDICARE, MEDICAID, SELFPAY ==
[2021-11-08 09:45] VITALS: BP 143/80; PULSE 59; RESP 18; TEMP 36.7; O2SAT 100; BMI 34.7
--- NOTE | 2021-11-08 10:40 | HMH.PAINSOAP ---
[facility] Pain Management SOAP Note Subjective:: Patient is a pleasant 60-year-old female who presents today for follow-up after a bilateral SI injection on October 05, 2021. Patient is being treated for degenerative disc disease of lumbar spine with lumbar radiculopathy symptoms, sacroiliitis. After the procedure, patient had significant relief of 100% that lasted for 4 days. Patient states that she was able to increase her activity during those days. However, as soon as she went back to work at , she started to have pain again on her right hip. Denies any issues after the injection. She wants to know if we can do a repeat injection scheduled. Rates her pain today as 7 out of 10. Patient is also prescribed Magnolia 7.5 mg 4 times a day by Dr. Ulises Judd. Tavo [phone] with an active morphine equivalent of 30. When I last saw this patient, I referred her to podiatry because she was having constant right foot pain around her toes. She says that she injured her toe about 5 years ago when she was working. Today, patient states that she just saw podiatry and was offered surgical intervention. She will meet with Dr. Yu in November to schedule her surgery. Interval History: Patient previously had a spinal cord stimulator system with [employer] that was explanted on August 15, 2021. 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 She needed to get an MRI but because of the stimulator she could not. We explanted her stimulator and they were able to evaluate her mass. We will continue to manage this patient with injective therapy. Review of Systems: General: No recent weight changes, no fever, no sleep disturbances Respiratory: No cough, no shortness of air, no recurring pulmonary infections Cardiovascular/peripheral vascular: No chest pain, no palpitations, no edema, no shortness of breath Gastrointestinal: No new onset incontinence, normal bowel movements reported Genitourinary: No new onset incontinence Musculoskeletal: Low back pain, bilateral hip pain, right foot pain Psychiatric: [Normal mood/affect] Neurological: [Denies weakness in extremities], [denies balance issues] Objective:: Physical Exam: General: Alert and oriented x3, no acute distress, pleasant and cooperative Lungs: Respirations even and unlabored, symmetrical chest expansion Eyes: PERRL Musculoskeletal: Flexion and extension of lumbar [spine] somewhat guarded secondary to pain, [antalgic gait noted]; bilateral SI are positive for DANIELLE, Arina's, [place]'s, Gaenslen's, compression, and distraction. Neurological: Speech clear, no gross sensory deficit Assessment:: Degenerative disc disease of lumbar spine with lumbar radiculopathy symptoms Bilateral sacroiliitis Right foot pain Plan:: Patient had 100% relief after the bilateral SI injection that lasted for 4 days. Patient has tried and failed conservative therapies such as oral medications, physical therapy, and at home exercises for greater than 6 weeks. We will schedule the patient for a bilateral SI injection. Risk and benefits of this procedure has been discussed with the patient. Patient would like to proceed with this procedure. Patient will be seeing Dr. Yu to schedule her right foot surgery. I discussed with the patient that if she will move forward with the right foot surgery, we will consider doing a bilateral SI RFA if the SI injections wear off too quickly. We will postpone in doing sacroiliac joint stabilization procedure until she is done with the right foot surgery. Patient has been instructed to contact the clinic with any concerns before the next appointment. Dr. Barnett has reviewed this note and agrees with this plan of care. This note was dictated using voice recognition software and make contain errors or omissions. [facility] History Medical History: Reports:: Anxiety, Arrhythmia, Atrial Fibrillation, Depression, Hyperlip
== END ==
PROVIDERS: Visit Provider Student in an Organized Health Care Education/Training Program
DX: M51.16 Intervertebral disc disorders with radiculopathy, lumbar region (principal); M46.1 Sacroiliitis, not elsewhere classified; M79.671 Pain in right foot
CPT/HCPCS: 99212; G0463

== ENCOUNTER 2021-12-04 11:00 | Outpatient (RCR) | payer MEDICARE, MEDICAID, SELFPAY | END 2021-12-04 11:05 | disposition home or self-care (01) | LOC: PT 11:00 | PROVIDERS: PCP Family Medicine; Visit Provider Family Medicine | DX: M54.12 Radiculopathy, cervical region (principal); M25.511 Pain in right shoulder | CPT/HCPCS: 97010; 97012; 97014; 97035; 97110; 97163; 97164; G0283 ==

== ENCOUNTER → 2021-12-06 11:10 | Outpatient (POV) | payer MEDICARE, MEDICAID, SELFPAY ==
[2021-12-06 11:43] VITALS: BP 152/83; PULSE 60; RESP 18; TEMP 36.6; O2SAT 100; BMI 34.4
--- NOTE | 2021-12-06 12:02 | HMH.PAINSOAP ---
[facility] Pain Management SOAP Note Subjective:: Patient is a pleasant 61-year-old female who presents today for follow-up. Patient is current being treated for degenerative disc disease of the lumbar spine with lumbar radiculopathy symptoms, sacroiliitis. We have been managing this patient with injective therapy. She had a bilateral SI injection on October 05, 2021 that provided 90 to 100% of relief but it only lasted for about a week. During that week, patient was able to increase her activity. When I saw her last time, she states that her pain is back to baseline so we ordered a repeat bilateral SI injection. However, this repeat injection was rejected by her insurance stating that she needed to wait for 3 months before trying a repeat injection. Patient has continued to do home exercises but they only provide minimal relief. She has done physical therapy in the past that aggravated her symptoms. For pain, she is taking Liberty 7.5 mg 4 times a day that is prescribed by an outside clinic. Tavo [id number] with an active morphine equivalent of 30. Patient has an appointment with Dr. Yu in the next couple of days for her right toe pain. She was told that she may need surgical intervention for this. Interval History: Patient previously had a spinal cord stimulator system with [email or web address] that was explanted on August 15, 2021. 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 She needed to get an MRI but because of the stimulator she could not. We explanted her stimulator and they were able to evaluate her mass. We will continue to manage this patient with injective therapy. Review of Systems: General: No recent weight changes, no fever, no sleep disturbances Respiratory: No cough, no shortness of air, no recurring pulmonary infections Cardiovascular/peripheral vascular: No chest pain, no palpitations, no edema, no shortness of breath Gastrointestinal: No new onset incontinence, normal bowel movements reported Genitourinary: No new onset incontinence Musculoskeletal: Low back pain, bilateral hip pain Psychiatric: [Normal mood/affect] Neurological: [Denies weakness in extremities], [denies balance issues] Objective:: Physical Exam: General: Alert and oriented x3, no acute distress, pleasant and cooperative Lungs: Respirations even and unlabored, symmetrical chest expansion Eyes: PERRL Musculoskeletal: Flexion and extension of lumbar [spine] somewhat guarded secondary to pain, [antalgic gait noted]; bilateral SI are positive for DANIELLE, Arina's, [place]'s, Gaenslen's, compression, and distraction. Neurological: Speech clear, no gross sensory deficit Assessment:: Degenerative disc disease of lumbar spine with lumbar radiculopathy symptoms, bilateral sacroiliitis, right foot pain Plan:: Patient had 90 to 100% relief after her bilateral SI injection that only provided almost a week of relief. Her pain is back to baseline now. I do believe that the patient would benefit from a repeat injection however this has been denied by insurance. We will schedule the patient for a right SI RFA. Risk and benefits have been discussed with the patient. Patient would like to proceed with this procedure. Patient has been instructed to contact the clinic with any concerns before the next appointment. Dr. Barnett has reviewed this note and agrees with this plan of care. This note was dictated using voice recognition software and make contain errors or omissions. [facility] History Medical History: Reports:: Anxiety, Arrhythmia, Atrial Fibrillation, Depression, Hyperlipidemia, Hypertension Denies:: Cancer, Diabetes Mellitus Type 1, Diabetes Mellitus Type 2, Internal Pacemaker, MRSA, Seizures *Have you ever received a pneumonia vaccine?: No *Have you received a flu vaccine this season?: Yes Other Medical History: Reports: Arthritis, Hypothyroidism, Thyroid Disease, Other. Denies: Blood Transfusion R
== END ==
PROVIDERS: Visit Provider Student in an Organized Health Care Education/Training Program
DX: M51.16 Intervertebral disc disorders with radiculopathy, lumbar region (principal); M46.1 Sacroiliitis, not elsewhere classified; M19.90 Unspecified osteoarthritis, unspecified site
CPT/HCPCS: 99212; G0463

== ENCOUNTER → 2021-12-20 10:45 | Outpatient (POV) | payer MEDICARE, MEDICAID, SELFPAY ==
[2021-12-20 10:54] VITALS: BP 166/74; PULSE 97; RESP 20; O2SAT 99; BMI 34.2
--- NOTE | 2021-12-20 12:41 | HMH.PAINSOAP ---
[facility] Pain Management SOAP Note Subjective:: Patient is a pleasant 61-year-old female who presents today for follow-up. Patient is currently being treated for degenerative disc disease of lumbar spine with lumbar radiculopathy symptoms, sacroiliitis. We have been managing this patient with injective therapy. She had a bilateral SI injection on October 05, 2021 that provided 90 to 100% relief that lasted for about a week. She says that she was able to increase her activity during that 1 week. We have tried to get the patient approved for a second injection in this area but has been denied by insurance twice. Her insurance wants us to wait 3 months before trying a repeat injection. We also have tried to schedule the patient for a right SI RFA but this, again, is denied by insurance. She has tried and failed other conservative therapies such as oral medication and home exercises. She also has tried Pennsaid and compounding cream that provides minimal relief. She has tried physical therapy that aggravated her symptoms. For pain, she takes Corning 7.5 mg 4 times a day that is prescribed by an outside clinic. [facility] [id number] with an active morphine equivalent of 30. She is following up with Dr. Yu for her right toe pain. She was told that she may need surgical intervention for this. Interval History: Patient previously had a spinal cord stimulator system with [employer] that was explanted on August 15, 2021. 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 She needed to get an MRI but because of the stimulator she could not. We explanted her stimulator and they were able to evaluate her mass. We will continue to manage this patient with injective therapy. Review of Systems: General: No recent weight changes, no fever, no sleep disturbances Respiratory: No cough, no shortness of air, no recurring pulmonary infections Cardiovascular/peripheral vascular: No chest pain, no palpitations, no edema, no shortness of breath Gastrointestinal: No new onset incontinence, normal bowel movements reported Genitourinary: No new onset incontinence Musculoskeletal: Low back pain, bilateral hip pain Psychiatric: [Normal mood/affect] Neurological: [Denies weakness in extremities], [denies balance issues] Objective:: Physical Exam: General: Alert and oriented x3, no acute distress, pleasant and cooperative Lungs: Respirations even and unlabored, symmetrical chest expansion Eyes: PERRL Musculoskeletal: Flexion and extension of lumbar [spine] somewhat guarded secondary to pain, [antalgic gait noted]; bilateral SI are positive for DANIELLE, Arina's, [place]'s, Gaenslen's, compression, and distraction; limited range of motion of her knee secondary to pain Neurological: Speech clear, no gross sensory deficit Assessment:: Degenerative disc disease of lumbar spine with lumbar radiculopathy symptoms, sacroiliitis, bilateral knee pain Plan:: At this time, we are limited to what we can offer the patient. We will follow-up with her in 6 weeks to see if we can do a repeat bilateral SI injection. Patient might benefit from a sacroiliac joint stabilization procedure. We will discuss this procedure at her next follow-up. Patient has been instructed to contact the clinic with any concerns before the next appointment. Dr. Barnett has reviewed this note and agrees with this plan of care. This note was dictated using voice recognition software and make contain errors or omissions. [facility] History Medical History: Reports:: Anxiety, Arrhythmia, Atrial Fibrillation, Depression, Hyperlipidemia, Hypertension Denies:: Cancer, Diabetes Mellitus Type 1, Diabetes Mellitus Type 2, Internal Pacemaker, MRSA, Seizures *Have you ever received a pneumonia vaccine?: Yes *Have you received a flu vaccine this season?: Yes Other Medical History: Reports: Arthritis, Hypothyroidism, Thyroid Disease, Other. Denies: Blood Transfusion R
== END ==
PROVIDERS: Visit Provider Student in an Organized Health Care Education/Training Program
DX: M51.16 Intervertebral disc disorders with radiculopathy, lumbar region (principal); M46.1 Sacroiliitis, not elsewhere classified; M17.0 Bilateral primary osteoarthritis of knee
CPT/HCPCS: 99212; G0463

== ENCOUNTER → 2022-01-16 12:58 | Outpatient (CLI) | payer MEDICARE, MEDICAID, SELFPAY ==
--- NOTE | 2022-01-16 13:01 | XR_ITS ---
FINAL REPORT CLINICAL HISTORY: knee pain COMPARISON: 12/18/2020 FINDINGS: LEFT KNEE 4 views of the left knee were obtained. There is a new fracture of the proximal pole of the patella with approximately 10 mm of distraction. There is new varus angulation with abnormal appearance of the femoral component of the arthroplasty which is most worries for loosening. IMPRESSION: New fracture of the proximal pole of the patella. New varus angulation, most worrisome for loosening. Reviewed, Interpreted and Dictated by Woody Chopra III, MD Transcribed by Morelia Brown Authenticated and [facility]
== END ==
PROVIDERS: PCP Family Medicine; Visit Provider Orthopaedic Surgery
DX: M25.562 Pain in left knee (principal)
CPT/HCPCS: 73564

== ENCOUNTER → 2022-02-11 12:02 | Outpatient (POV) | payer MEDICARE, MEDICAID, SELFPAY ==
[2022-02-11 12:24] VITALS: BP 123/73; PULSE 67; RESP 20; TEMP 36.7; O2SAT 100; BMI 38.0
--- NOTE | 2022-02-11 13:11 | HMH.PAINSOAP ---
[facility] Pain Management SOAP Note Subjective:: Patient is a pleasant 61-year-old female that presents today for follow-up. We are currently treating the patient for degenerative disc disease of lumbar spine with lumbar radiculopathy symptoms, sacroiliitis, bilateral knee pain. Today she rates her pain an 8 out of 10. She states her pain is primarily in her back and her left knee. Patient describes this as a sharp, shooting pain that is worse with activity. She is scheduled to see an therapeutic physician in [place] for her left knee tomorrow. She denies any new trauma or injury. Patient denies any change to the location or type of pain she experiences. we have done injective therapy in the past. She has had bilateral SI injections that provided 90 to 100% relief lasting about a week. Her last injection however did not provide as long of lasting results. We do try and reschedule her for repeat SI injections however her insurance denied the procedure stating that she needed 3 months between injections. We have also tried to schedule a SI RFA however again insurance denied this. She has tried and failed other conservative therapies such as oral medications and home exercises. She does use Pennsaid and compounding cream however this only provides minimal relief. She has tried physical therapy in the past but this made her symptoms worse. She is currently being managed with Saint Johns 7.5 mg 4 times a day that is written by Dr. Judd. Patient denies any side effects from this medication. She states this medication does adequately manage her pain. Patient has recently been diagnosed with stage III kidney disease. She states that she is having to come off all her NSAIDs and stated that she is worried she will need a higher dosage on her Saint Johns. Patient states she will discuss with Dr. Judd whether he will continue prescribing this medication or would like us to take over. Patient also states that her [id number] last week due to end-stage renal disease. Her Tavo is [phone]. It has been reviewed and appropriate. Review of Systems: General: No recent weight changes, no fever, no sleep disturbances Respiratory: No cough, no shortness of air, no recurring pulmonary infections Cardiovascular/peripheral vascular: No chest pain, no palpitations, no edema, no shortness of breath Gastrointestinal: No new onset incontinence, normal bowel movements reported Genitourinary: No new onset incontinence Musculoskeletal: Low back pain, left knee pain Psychiatric: [Normal mood/affect] Neurological: [Denies weakness in extremities], [denies balance issues] Objective:: Physical Exam: General: Alert and oriented x3, no acute distress, pleasant and cooperative Lungs: Respirations even and unlabored, symmetrical chest expansion Eyes: PERRL Musculoskeletal: Flexion and extension of lumbar [spine] somewhat guarded secondary to pain, [antalgic gait noted]. Extreme point tenderness along bilateral SI's. Positive bilateral Eber's, Arina's, Gaenslen's, compression and distraction test Neurological: Speech clear, no gross sensory deficit Assessment:: Degenerative disc disease of lumbar spine with lumbar radiculopathy symptoms, sacroiliitis, bilateral knee pain Plan:: Patient is experiencing worsening bilateral SI pain. She did have extreme point tenderness and a positive bilateral Eber's, Arina's, Gaenslen's, compression and distraction test during today's exam. I have discussed with her regarding scheduling her for bilateral SI injections. Risk and benefits were discussed with the patient. She would like to proceed forward with these injections. I will schedule the patient for a bilateral SI injection at today's visit. At her next follow-up we will review over her left knee findings with her orthopedic surgeon from [place] as well as whether we will be taking over her Saint Johns prescription from Dr. Judd. Patient has been instructed to contact the clin
== END ==
PROVIDERS: PCP Family Medicine; Visit Provider Nurse Practitioner Family
DX: M51.16 Intervertebral disc disorders with radiculopathy, lumbar region (principal); M46.1 Sacroiliitis, not elsewhere classified; M25.561 Pain in right knee; M25.562 Pain in left knee
CPT/HCPCS: 99212; G0463

== ENCOUNTER 2022-02-28 17:47 | Emergency (ER) | payer MEDICARE, MEDICAID, SELFPAY ==
--- NOTE | 2022-02-28 18:21 | EXP.UTC ---
Discharge Plan Disposition Patient Disposition: Home, Self-Care Condition: Good Prescriptions Prescriptions: New promethazine 25 mg Tablet 25 mg PO Q6H PRN (Reason: Nausea And Vomiting) Qty: 20 0RF No Action naproxen 500 mg tablet 500 mg PO Q12H PRN (Reason: pain) venlafaxine 75 mg capsule,extended release 24hr 150 mg PO BID cholecalciferol (vitamin D3) 1,000 unit capsule 1,000 unit PO DAILY zinc acetate [Galzin] 50 mg (zinc) capsule 50 mg PO DAILY bumetanide 1 mg tablet 1 mg PO DAILY levothyroxine 125 mcg tablet 125 mcg PO DAILY potassium chloride 10 mEq capsule, extended release 10 meq PO DAILY vitamin B complex-folic acid 400 mcg tablet extended release 1 tab PO DAILY Label Comments: TAKE ONE TABLET BY MOUTH EVERY DAY diclofenac sodium 2 GM solution in packet 2 gm TP QID rivaroxaban 20 MG tablet 20 mg PO DAILY Rx Instructions: must administer with evening meal metoprolol succinate 25 MG tablet extended release 24 hr 25 mg PO DAILY topiramate 50 tablet 50 mg PO BID Label Comments: ferrous sulfate 325 MG tablet 325 mg PO DAILY pramipexole 1 tablet 1 mg PO TID pantoprazole 40 MG tablet,delayed release (DR/EC) 40 mg PO DAILY Referrals Follow up/Referrals: Ulises Judd MD [Primary Care Provider] - See instructions Activity Restrictions/Add. Instructions Additional Instructions/Restrictions: Drink plenty of fluids. Take tylenol for pain or fever. Return if you begin to have difficulty breathing. Follow up with your regular doctor. GO TO THE ER FOR ANY WORSENING SYMPTOMS Return a stool sample to the outpatient lab with the order form that we gave you if your diarrhea continues. Clinical Impressions Clinical Impression: Diarrhea, COVID-19 Instructions Patient Instructions: Promethazine, Coronavirus Disease 2019, Preventing the Spread of Coronavirus Discharge Instructions Discharge ED Provider: Thaddeus Jameson [facility] General Stated complaint: covid test/pcr Time Seen by Provider: 02/28/22 18:20 History of Present Illness Provider Complaint: She is here to have a covid-19 pcr test. She has surgery scheduled for 03/05 on her left knee for knee replacement. She was diagnosed with covid-19 1 week ago. She states that her physician is wanting her to test negative for covid before they can do the surgery. She denies any complaints except that she continues to have diarrhea. She had c-diff around 3 months ago and she is worried that it has returned. She has not taken any antibiotics recently. Related Data Home Medications Medication Instructions Recorded Confirmed cholecalciferol (vitamin D3) 25 1,000 unit PO DAILY Supplement 07/23/17 02/11/22 mcg (1,000 unit) capsule naproxen 500 mg tablet 500 mg PO Q12H PRN pain 07/23/17 02/11/22 venlafaxine 75 mg capsule,extended 150 mg PO BID Depression 07/23/17 02/11/22 release 24 hr zinc acetate 50 mg (zinc) capsule 50 mg PO DAILY Supplement 07/23/17 02/11/22 (Galzin) topiramate 50 mg tablet 50 mg PO BID HEADACHES 08/20/17 02/11/22 ferrous sulfate 325 mg (65 mg 325 mg PO DAILY Supplement 05/06/18 02/11/22 iron) tablet pramipexole 1 mg tablet 1 mg PO TID restless legs 05/06/18 02/11/22 pantoprazole 40 mg tablet,delayed 40 mg PO DAILY stomach 05/28/20 02/11/22 release diclofenac sodium 2 % topical 2 gm topical QID NSAID 04/13/21 02/11/22 solution in packet vitamin B complex-folic acid ER 1 tab PO DAILY Supplement 04/26/21 02/11/22 400 mcg tablet,extended release bumetanide 1 mg tablet 1 mg PO DAILY Fluid 05/17/21 02/11/22 levothyroxine 125 mcg tablet 125 mcg PO DAILY Supplement 05/17/21 02/11/22 potassium chloride 10 mEq 10 meq PO DAILY Supplement 05/17/21 02/11/22 capsule,extended release metoprolol succinate 25 mg 25 mg PO DAILY BLOOD PRESSURE 10/01/21 02/11/22 tablet,extended release 24 hr
[2022-02-28 18:24] VITALS: BP 140/79; PULSE 66; RESP 16; TEMP 36.8; O2SAT 99; BMI 33.2
[2022-02-28 18:38] VITALS: BP 140/79; PULSE 66; RESP 16; TEMP 36.8
== END 2022-02-28 18:39 | disposition home or self-care (01) ==
PROVIDERS: Emergency Provider Nurse Practitioner Family; PCP Family Medicine
DX: U07.1 COVID-19 (principal)
CPT/HCPCS: 99212; C9803; G0463; U0003; U0005

== ENCOUNTER → 2022-03-05 11:04 | Outpatient (POV) | payer MEDICARE, MEDICAID, SELFPAY ==
[2022-03-05 11:22] VITALS: BP 155/91; PULSE 68; RESP 18; TEMP 36.9; O2SAT 97; BMI 33.6
--- NOTE | 2022-03-05 12:28 | EXP.PAIN.SOA ---
[facility] Pain Management SOAP Note Subjective:: Patient is a pleasant 61-year-old female who presents today for follow-up. We are currently treating the patient for degenerative disc disease of lumbar spine with lumbar radiculopathy symptoms, sacroiliitis, bilateral knee pain. Today the patient rates her pain a 9 out of 10 and states the pain is primarily in her low back on the right side and her left knee. Patient states this is a sharp sensation that is worse with increased activity. Patient denies any new trauma or injury to the site. She denies any change in location or type of pain she experiences. She is currently seen a orthopedic surgeon in [place] for her left knee. She is planning on having surgery for this issue. At this time the patient states she does not have a definitive surgery date however she is hoping that it will be next week. We have done injective therapy in the past for this patient that has provided significant improvement of her symptoms including bilateral SI injections. Recently we did try to resubmit bilateral SI injections however insurance denied it patient has tried oral medications such as Tylenol and ibuprofen with no improvement of her symptoms. She was previously prescribed [place] 7.5 mg 4 times a day by Dr. Judd however last month he did stop prescribing her medication and stated that our office could take over this prescription. Patient states she has not had this medication since January. Patient denies any side effects with this medication. She states this medication did adequately help manage her pain. Patient recently was diagnosed with stage III kidney disease and had to stop taking all her NSAID medication. Patient has tried and failed conservative therapy such as oral medications, topical medications, home exercises longer than 6 weeks. Her Tavo is [id number]. Its been reviewed and appropriate. Review of Systems: General: No recent weight changes, no fever, no sleep disturbances Respiratory: No cough, no shortness of air, no recurring pulmonary infections Cardiovascular/peripheral vascular: No chest pain, no palpitations, no edema, no shortness of breath Gastrointestinal: No new onset incontinence, normal bowel movements reported Genitourinary: No new onset incontinence Musculoskeletal: Low back pain, left knee pain Psychiatric: [Normal mood/affect] Neurological: [Denies weakness in extremities], [denies balance issues] Objective:: Physical Exam: General: Alert and oriented x3, no acute distress, pleasant and cooperative Lungs: Respirations even and unlabored, symmetrical chest expansion Eyes: PERRL Musculoskeletal: Flexion and extension of lumbar [spine] somewhat guarded secondary to pain, [antalgic gait noted]. Point tenderness distal patella left knee Neurological: Speech clear, no gross sensory deficit Assessment:: Degenerative disc disease of lumbar spine with lumbar radiculopathy symptoms, sacroiliitis, bilateral knee pain Plan:: Patient continues to have significant pain in her low back and left knee. Patient did have limited range of motion of her lumbar spine and point tenderness along her left knee at today's exam. At this time we will not schedule the patient for injective therapy due to her upcoming left knee surgery. I will reorder the patient's [place] 7.5 mg 4 times a day and provide a 1 month supply of this medication. I have counseled the patient that we will do a 1 month follow-up in person however if she does end up having her left knee surgery at that time we can do a telehealth visit. Patient will return to clinic in 1 month for follow-up, reevaluation of symptoms as well as medication refill. Patient has been instructed to contact the clinic with any concerns before the next appointment. Dr. Barnett has reviewed this note and agrees with this plan of care. This note was dictated using voice recognition software and make contain errors or omissions. [facility] Medical History (Reviewed
== END | disposition home or self-care (01) ==
PROVIDERS: PCP Family Medicine; Visit Provider Nurse Practitioner Family
DX: M51.16 Intervertebral disc disorders with radiculopathy, lumbar region (principal); M46.1 Sacroiliitis, not elsewhere classified; M25.561 Pain in right knee; M25.562 Pain in left knee
CPT/HCPCS: 99212; G0463

== ENCOUNTER 2022-03-26 13:44 | Outpatient (RCR) | payer MEDICARE, MEDICAID, SELFPAY | END 2022-03-26 13:50 | disposition home or self-care (01) | LOC: PT 13:44 | PROVIDERS: PCP Family Medicine; Visit Provider Orthopaedic Surgery | DX: M25.562 Pain in left knee (principal); T84.033A Mechanical loosening of internal left knee prosthetic joint, initial encounter | CPT/HCPCS: 97163 ==

== ENCOUNTER → 2022-04-11 13:40 | Outpatient (POV) | payer MEDICARE, MEDICAID, SELFPAY ==
[2022-04-11 14:07] VITALS: BP 127/63; PULSE 61; RESP 18; TEMP 36.6; O2SAT 97; BMI 46.0
--- NOTE | 2022-04-11 15:15 | A.OFFVIS_ITS ---
[facility] Pain Management SOAP Note Subjective:: Patient is a pleasant 61-year-old female who presents today as a follow-up. Patient is currently being treated for degenerative disc disease of lumbar spine with lumbar radiculopathy symptoms, sacroiliitis, bilateral knee pain, right foot pain. Patient is current being managed with [place] 7.5 mg 4 times a day. Denies any side effects from this medication. Stable on these medications. She recently had a left knee TKA by an orthopedic provider in [place]. She still healing from this. She was prescribed oxycodone 5 mg up to 3 times a day. Her sutures were removed and her incisions seem to be healing really well. She was taking ibuprofen and Tylenol in the past to also help with her pain. She was recently diagnosed with stage III kidney disease and had to stop taking all of her NSAID medications. Tavo [id number] with an active morphine equivalent of 53. Review of Systems: General: No recent weight changes, no fever, no sleep disturbances Respiratory: No cough, no shortness of air, no recurring pulmonary infections Cardiovascular/peripheral vascular: No chest pain, no palpitations, no edema, no shortness of breath Gastrointestinal: No new onset incontinence, normal bowel movements reported Genitourinary: No new onset incontinence Musculoskeletal: Low back pain Psychiatric: [Normal mood/affect] Neurological: [Denies weakness in extremities], [denies balance issues] Objective:: Physical Exam: General: Alert and oriented x3, no acute distress, pleasant and cooperative Lungs: Respirations even and unlabored, symmetrical chest expansion Eyes: PERRL Musculoskeletal: Flexion and extension of lumbar [spine] somewhat guarded secondary to pain, [antalgic gait noted] Neurological: Speech clear, no gross sensory deficit Assessment:: Degenerative disc disease of lumbar spine with lumbar radiculopathy symptoms, sacroiliitis, bilateral knee pain Plan:: We will continue the patient's [place] 7.5 mg 4 times a day and provide the patient with 1 month worth of refill. Patient is complaining of worsening low back pain especially around her SI joints today. Discussed with her that we will have to wait 4 more weeks to try injective therapy again. She is 4 weeks post op left TKA. Patient has been instructed to contact the clinic with any concerns before the next appointment. Dr. Barnett has reviewed this note and agrees with this plan of care. This note was dictated using voice recognition software and make contain errors or omissions. [facility] Medical History Abnormal electrocardiography Dyspnea Social History Smoking Status: Current every day smoker second hand exposure: No alcohol intake: never substance use type: denies use current occupational status: disabled Travel in the last 8 weeks: None household members: spouse housing: house current occupational exposures/hazards: No caffeine: Yes
== END | disposition home or self-care (01) ==
PROVIDERS: Visit Provider Student in an Organized Health Care Education/Training Program
DX: M51.16 Intervertebral disc disorders with radiculopathy, lumbar region (principal); M46.1 Sacroiliitis, not elsewhere classified; M25.561 Pain in right knee; M25.562 Pain in left knee; Z72.0 Tobacco use
CPT/HCPCS: 99212; G0463

== ENCOUNTER → 2022-05-13 14:41 | Outpatient (POV) | payer MEDICARE, MEDICAID, SELFPAY ==
[2022-05-13 15:23] VITALS: BP 145/72; PULSE 79; RESP 20; O2SAT 99; BMI 34.0
--- NOTE | 2022-05-13 16:05 | EXP.PAIN.SOA ---
[facility] Pain Management SOAP Note Subjective:: Patient is a pleasant 61-year-old female who presents today for follow-up. We are currently treating the patient for degenerative disc disease of lumbar spine with lumbar radiculopathy symptoms, sacroiliitis, bilateral knee pain, right foot pain. Today the patient rates her pain a 10 out of 10. She states the pain is all in her low back that radiates into bilateral hips and buttocks. Patient denies any new trauma or injury. Patient denies any change in location or type of pain she experiences. Patient states this is a aching, throbbing sensation that is worse with increased activity. Patient states that she cannot perform activities of daily living and cannot handle prolonged sitting, standing, walking due to the pain. Patient does state that she has neuropathy in both her feet and now is experiencing numbness and tingling in her hands as well. Patient states she has not had cervical imaging in the past. Patient previously had a left knee arthroplasty by her provider in [place] and she continues to heal from this. She states that they did actually replace half of her femur that was fractured as well. She states that she continues to have pain and swelling with her knee and is using a cane for ambulation. Patient was previously seen physical therapy however due to the extent of her knee replacement and femur replacement her orthopedic surgeon has stopped treatment at this time. Patient does use [id number] Tylenol as needed to help with her pain symptoms. Patient was recently diagnosed with stage III kidney disease and had to stop all her NSAIDs. Patient is currently prescribed [place] 7.5 mg 4 times a day. Patient denies any side effects from this medication. She states this medication does help manage her pain symptoms. She is requesting refill at today's visit. Patient was also given oxycodone 5 mg from her orthopedic physician related to her knee surgery however she states that he is not continuing this medication. Her Tavo is [id number]. It has been reviewed and appropriate. Review of Systems: General: No recent weight changes, no fever, no sleep disturbances Respiratory: No cough, no shortness of air, no recurring pulmonary infections Cardiovascular/peripheral vascular: No chest pain, no palpitations, no edema, no shortness of breath Gastrointestinal: No new onset incontinence, normal bowel movements reported Genitourinary: No new onset incontinence Musculoskeletal: Low back pain, left knee pain Psychiatric: [Normal mood/affect] Neurological: [Denies weakness in extremities], [denies balance issues] Objective:: Physical Exam: General: Alert and oriented x3, no acute distress, pleasant and cooperative Lungs: Respirations even and unlabored, symmetrical chest expansion Eyes: PERRL Musculoskeletal: Flexion and extension of lumbar [spine] somewhat guarded secondary to pain, [antalgic gait noted]. Extreme point tenderness along bilateral SI's and positive bilateral Eber's, Arina's, Gaenslen's, compression and distraction exam Neurological: Speech clear, no gross sensory deficit Assessment:: Degenerative disc disease of lumbar spine with lumbar radiculopathy symptoms, sacroiliitis, bilateral knee pain, right foot pain Plan:: Patient is experiencing significant pain in her low back that radiates into her bilateral hips/buttocks. Patient did have limited range of motion of her lumbar spine as well as positive bilateral Eber's, Arina's, Gaenslen's, compression and distraction exam. Patient also had extreme point tenderness along bilateral SI's. I have discussed with the patient that she may benefit from bilateral SI injections. Risk and benefits were discussed with the patient. She would like to proceed forward with this plan of care. I will also order the patient a CT without contrast of her cervical spine. I have also discussed with the patient that she may be a beneficial candidate for a pain pu
== END | disposition home or self-care (01) ==
PROVIDERS: PCP Family Medicine; Visit Provider Nurse Practitioner Family
DX: M51.16 Intervertebral disc disorders with radiculopathy, lumbar region (principal); M46.1 Sacroiliitis, not elsewhere classified; M25.561 Pain in right knee; M25.562 Pain in left knee; M79.671 Pain in right foot
CPT/HCPCS: 99212; G0463

== ENCOUNTER → 2022-06-14 12:50 | Outpatient (CLI) | payer MEDICARE, MEDICAID, SELFPAY | PROVIDERS: PCP Family Medicine | DX: Z01.812 Encounter for preprocedural laboratory examination (principal) | CPT/HCPCS: C9803; U0003; U0005 ==

== ENCOUNTER → 2022-06-17 11:21 | Outpatient (POV) | payer MEDICARE, MEDICAID, SELFPAY ==
[2022-06-17 12:08] VITALS: BP 156/80; PULSE 71; RESP 18; O2SAT 98; BMI 32.2
--- NOTE | 2022-06-17 14:42 | EXP.PAIN.SOA ---
[facility] Pain Management SOAP Note Subjective:: Patient is a pleasant 61-year-old female who is here for medication refill and follow-up. Patient is currently being treated for degenerative disc disease of the cervical and lumbar spine with cervical and lumbar radiculopathy symptoms, sacroiliitis, bilateral knee pain, right foot pain. Patient is being managed with [place] 7.5 mg 4 times a day. Patient denies any side effects from the medications. Patient denies any changes to the location and type of pain. Patient states that this is adequately helping manage their pain. Rates pain as 6 out of 10. [facility] number [id number] with an active morphine equivalent 30. Drug screens have been reviewed and appropriate. Review of Systems: General: No recent weight changes, no fever, no sleep disturbances Respiratory: No cough, no shortness of air, no recurring pulmonary infections Cardiovascular/peripheral vascular: No chest pain, no palpitations, no edema, no shortness of breath Gastrointestinal: No new onset incontinence, normal bowel movements reported Genitourinary: No new onset incontinence Musculoskeletal: Low back pain Psychiatric: [Normal mood/affect] Neurological: [Denies weakness in extremities], [denies balance issues] Objective:: Physical Exam: General: Alert and oriented x3, no acute distress, pleasant and cooperative Lungs: Respirations even and unlabored, symmetrical chest expansion Eyes: PERRL Musculoskeletal: Flexion and extension of lumbar and cervical [spine] somewhat guarded secondary to pain, [antalgic gait noted] Neurological: Speech clear, no gross sensory deficit Assessment:: Degenerative disc disease of the cervical and lumbar spine with cervical and lumbar radiculopathy symptoms, sacroiliitis, knee pain, right foot pain Plan:: We will continue the patient's [place] 7.5 mg 4 times a day. We will provide the patient with 1 month of refills. We would like to see the patient back in 1 month for follow-up and reevaluation of chronic pain syndrome. Patient has been advised of risks of oversedation with the prescribed medication. Narcan has been offered to the patient in the event of oversedation. Patient has been advised that a family member should also be educated regarding administration of Narcan. Patient has been instructed to contact the clinic with any concerns before the next appointment. Dr. Barnett has reviewed this note and agrees with this plan of care. This note was dictated using voice recognition software and make contain errors or omissions. [facility] Disclaimer: The information contained in this section may have been updated after the patient was seen, as this information can be updated by other users. Medical History Abnormal electrocardiography Dyspnea Social History Smoking Status: Current every day smoker second hand exposure: No alcohol intake: never substance use type: denies use current occupational status: disabled Travel in the last 8 weeks: None household members: spouse housing: house current occupational exposures/hazards: No caffeine: Yes
== END | disposition home or self-care (01) ==
PROVIDERS: PCP Family Medicine; Visit Provider Student in an Organized Health Care Education/Training Program
DX: M51.16 Intervertebral disc disorders with radiculopathy, lumbar region (principal); M50.10 Cervical disc disorder with radiculopathy, unspecified cervical region; M46.1 Sacroiliitis, not elsewhere classified; M25.569 Pain in unspecified knee; M79.671 Pain in right foot
CPT/HCPCS: 99212; G0463

== ENCOUNTER → 2022-07-08 13:57 | Outpatient (POV) | payer MEDICARE, MEDICAID, SELFPAY ==
--- NOTE | 2022-07-08 14:41 | EXP.PAIN.SOA ---
[facility] Pain Management SOAP Note Subjective:: Patient is a pleasant 61-year-old female who presents today for medication refill and follow-up. We are currently treating the patient for degenerative disc disease of cervical and lumbar spine with cervical and lumbar radiculopathy symptoms, sacroiliitis, bilateral knee pain, right foot pain. Today the patient rates her pain a 4 out of 10. Patient denies any new trauma or injury. Patient denies any change location or type of pain she experiences. Patient states she continues to have significant back pain and hand pain. Previously we did try and order cervical imaging however it was denied by insurance due to not having prior x-ray imaging. Patient is interested in getting this resubmitted. Patient does state that she traveled a lot last week due to the holidays and is experiencing edema in her bilateral lower extremities. Patient does state that she ate quite a bit of food with salt however she is on a daily medication to help with her fluid. Patient has tried compounding cream in the past however she did not notice significant improvement on her hands. Patient is currently managed with [place] 7.5 mg 4 times a day. Patient denies any side effects from this medication. She states this medication does help with her pain symptoms. Previously we had discussed that the patient may benefit from intrathecal pain pump trial. Patient was given educational handouts at her last visit. She is interested in proceeding forward with this plan of care. Her Tavo is [id number]. Its been reviewed and appropriate. Review of Systems: General: No recent weight changes, no fever, no sleep disturbances Respiratory: No cough, no shortness of air, no recurring pulmonary infections Cardiovascular/peripheral vascular: No chest pain, no palpitations, no edema, no shortness of breath Gastrointestinal: No new onset incontinence, normal bowel movements reported Genitourinary: No new onset incontinence Musculoskeletal: Neck pain, hand pain Psychiatric: [Normal mood/affect] Neurological: [Denies weakness in extremities], [denies balance issues] Objective:: Physical Exam: General: Alert and oriented x3, no acute distress, pleasant and cooperative Lungs: Respirations even and unlabored, symmetrical chest expansion Eyes: PERRL Musculoskeletal: Flexion and extension of cervical [spine] somewhat guarded secondary to pain, [antalgic gait noted] Neurological: Speech clear, no gross sensory deficit ORT score updated with low risk Assessment:: Degenerative disc disease of cervical and lumbar spine with cervical and lumbar radiculopathy symptoms, sacroiliitis, bilateral knee pain, right foot pain Plan:: Patient continues to experience significant pain in her upper and lower back including significant pain in her hands. Patient did have limited range of motion of her cervical spine during today's visit. I will order the patient a x-ray of her cervical spine as well as a psychiatric evaluation with the plan to proceed forward with a intrathecal pain pump trial in the future if she is deemed an appropriate candidate. I will refill the patient's [place] 7.5 mg 4 times a day and provide a 1 month supply of this medication. Patient will return to clinic in 1 month for reevaluation of symptoms, medication refill and follow-up. Patient has been advised of risks of oversedation with the prescribed medication. Narcan has been offered to the patient in the event of oversedation. Patient has been advised that a family member should also be educated regarding administration of Narcan. Patient has been instructed to contact the clinic with any concerns before the next appointment. Dr. Barnett has reviewed this note and agrees with this plan of care. This note was dictated using voice recognition software and make contain errors or omissions. [facility] Disclaimer: The information contained in this section may have been updated after the patient was s
[2022-07-08 15:13] VITALS: BP 142/63; PULSE 63; RESP 18; O2SAT 97; BMI 32.2
== END | disposition home or self-care (01) ==
PROVIDERS: Visit Provider Nurse Practitioner Family
DX: M50.10 Cervical disc disorder with radiculopathy, unspecified cervical region (principal); M51.16 Intervertebral disc disorders with radiculopathy, lumbar region; M46.1 Sacroiliitis, not elsewhere classified; M25.561 Pain in right knee; M25.562 Pain in left knee; M79.671 Pain in right foot
CPT/HCPCS: 99212; G0463

== ENCOUNTER → 2022-07-08 15:11 | Outpatient (CLI) | payer MEDICARE, MEDICAID, SELFPAY ==
[2022-07-08 17:12] LABS: Amphetamine/Metha Screen,Urine Negative ng/ml (<1000); Barbiturates Screen,Urine Negative ng/ml (<200)
[2022-07-08 17:13] LABS: Benzodiazepines Screen,Urine Negative ng/ml (<200)
[2022-07-08 17:14] LABS: Cannabinoid Screen,Urine Negative ng/ml (<50); Cocaine Screen,Urine Negative ng/ml (<300)
[2022-07-08 17:15] LABS: Methadone Screen,Urine Negative ng/ml (<300)
[2022-07-08 17:16] LABS: Opiate Screen,Urine Negative ng/ml (<300); Phencyclidine Screen,Urine Negative ng/ml (<25)
[2022-07-13 23:11] LABS: Opiates Negative (Cutoff=100)
== END ==
PROVIDERS: PCP Family Medicine; Visit Provider Nurse Practitioner Family
DX: Z79.891 Long term (current) use of opiate analgesic (principal)
CPT/HCPCS: 80305; 80361; 80365; 99212; G0463; G0480

== ENCOUNTER → 2022-07-18 13:22 | Outpatient (CLI) | payer MEDICARE, MEDICAID, SELFPAY ==
--- NOTE | 2022-07-18 13:43 | XR_ITS ---
PROCEDURE INFORMATION: Exam: XR Cervical Spine Exam date and time: 07/18/2022 1:57 PM Age: 61 years old Clinical indication: Neck pain TECHNIQUE: Imaging protocol: Radiologic exam of the cervical spine. Views: 4 or 5 views. COMPARISON: CR XR MULTIPLE SPINE 6+V 10/02/2020 10:57 AM FINDINGS: Bones/joints: Osteopenia, bones appear diffusely demineralized. Lateral series 2 shows severe anterior subluxation C3-C4 up to 9 mm, and moderate anterior subluxation C4-C5 of 4-5 mm. No definite acute fractures seen, though the posterior elements are suboptimally evaluated at C3 through C5 levels due to superimposed bone shadows. There is cervical facet arthropathy. There is central spinal stenosis suggested at C4-C5, and stenosis of the right C4, left C4 and C5 neural foramina, correlate for radiculopathy. No definite focal lytic lesion is seen. Degenerative disc narrowing and spondylosis greatest C5-C6 and C6-C7. Soft tissues: No acute findings in the soft tissues. No prevertebral swelling. Lungs: Visualized lung apices are unremarkable. IMPRESSION: 1. Severe anterior subluxation at C3-C4 up to 9 mm, moderate anterior subluxation at C4-C5 of 4-5 mm. 2. Spinal stenosis suggested at C4-C5, and stenosis of both C4 foramina and left C5 foramen, correlate for myelopathy and radiculopathy. 3. No definite fracture visible, but recommend follow-up with MRI to exclude occult injury, cord or nerve compression due to the significant degree of listhesis. 4. Degenerative disc narrowing and spondylosis C5-C6 and C6-C7. 5. Osteopenia, limiting the study.
== END ==
PROVIDERS: PCP Family Medicine; Visit Provider Family Medicine
DX: M54.2 Cervicalgia (principal)
CPT/HCPCS: 72050

== ENCOUNTER → 2022-07-31 15:04 | Outpatient (POV) | payer MEDICARE, MEDICAID, SELFPAY ==
[2022-07-31 15:14] VITALS: BP 142/74; PULSE 69; RESP 18; O2SAT 97; BMI 31.8
--- NOTE | 2022-07-31 15:23 | EXP.PAIN.SOA ---
[facility] Pain Management SOAP Note Subjective:: Patient is a pleasant 61-year-old female who presents today for follow-up of x-ray imaging of her cervical spine. We are currently treating the patient for degenerative disc disease of cervical and lumbar spine with cervical and lumbar radiculopathy symptoms, sacroiliitis, bilateral knee pain, right foot pain. Today she rates her pain a 7 out of 10. Patient denies any new trauma or injury. Patient denies any change location or type of pain she experiences. Patient states she continues to have weakness in her hands and extremities. Patient does use a cane for additional ambulation. Patient is currently managed with [place] 7.5 mg 4 times a day from our office. Patient denies any side effects from this medication. She states this medication does help manage her pain symptoms. She does not need a refill at this time. Patient has tried compounding cream in the past however she did not notice significant difference. We have discussed in the past about a intrathecal pain pump trial and educational handouts were given at the last visit however we were doing imaging first. Her Tavo is [id number]. Its been reviewed and appropriate. Review of Systems: General: No recent weight changes, no fever, no sleep disturbances Respiratory: No cough, no shortness of air, no recurring pulmonary infections Cardiovascular/peripheral vascular: No chest pain, no palpitations, no edema, no shortness of breath Gastrointestinal: No new onset incontinence, normal bowel movements reported Genitourinary: No new onset incontinence Musculoskeletal: Upper back/neck pain Psychiatric: [Normal mood/affect] Neurological: [Denies weakness in extremities], [denies balance issues] Objective:: Physical Exam: General: Alert and oriented x3, no acute distress, pleasant and cooperative Lungs: Respirations even and unlabored, symmetrical chest expansion Eyes: PERRL Musculoskeletal: Flexion and extension of cervical [spine] somewhat guarded secondary to pain, [antalgic gait noted] Neurological: Speech clear, no gross sensory deficit PROCEDURE INFORMATION: Exam: XR Cervical Spine Exam date and time: 07/18/2022 1:57 PM Age: 61 years old Clinical indication: Neck pain TECHNIQUE: Imaging protocol: Radiologic exam of the cervical spine. Views: 4 or 5 views. COMPARISON: CR XR MULTIPLE SPINE 6+V 10/02/2020 10:57 AM FINDINGS: Bones/joints: Osteopenia, bones appear diffusely demineralized. Lateral series 2 shows severe anterior subluxation C3-C4 up to 9 mm, and moderate anterior subluxation C4-C5 of 4-5 mm. No definite acute fractures seen, though the posterior elements are suboptimally evaluated at C3 through C5 levels due to superimposed bone shadows. There is cervical facet arthropathy. There is central spinal stenosis suggested at C4-C5, and stenosis of the right C4, left C4 and C5 neural foramina, correlate for radiculopathy. No definite focal lytic lesion is seen. Degenerative disc narrowing and spondylosis greatest C5-C6 and C6-C7. Soft tissues: No acute findings in the soft tissues. No prevertebral swelling. Lungs: Visualized lung apices are unremarkable. IMPRESSION: 1. Severe anterior subluxation at C3-C4 up to 9 mm, moderate anterior subluxation at C4-C5 of 4-5 mm. 2. Spinal stenosis suggested at C4-C5, and stenosis of both C4 foramina and left C5 foramen, correlate for myelopathy and radiculopathy. 3. No definite fracture visible, but recommend follow-up with MRI to exclude occult injury, cord or nerve compression due to the significant degree of listhesis. 4. Degenerative disc narrowing and spondylosis C5-C6 and C6-C7. 5. Osteopenia, limiting the study. Assessment:: Degenerative disc disease of cervical and lumbar spine with cervical and lumbar radiculopathy symptoms, sacroiliitis, bilateral knee pain, right foot pain, cervical spondylosis, cervical facet arthropathy
== END ==
PROVIDERS: PCP Family Medicine; Visit Provider Nurse Practitioner Family
DX: M50.122 Cervical disc disorder at C5-C6 level with radiculopathy (principal); M51.16 Intervertebral disc disorders with radiculopathy, lumbar region; M46.1 Sacroiliitis, not elsewhere classified; M25.561 Pain in right knee; M25.562 Pain in left knee; M79.672 Pain in left foot; M47.22 Other spondylosis with radiculopathy, cervical region; M48.02 Spinal stenosis, cervical region
CPT/HCPCS: 99212; G0463

== ENCOUNTER → 2022-08-16 09:06 | Outpatient (CLI) | payer MEDICARE, MEDICAID, SELFPAY ==
--- NOTE | 2022-08-16 09:19 | XR_ITS ---
FINAL REPORT TECHNIQUE: Bone densitometry calculations of the lumbar spine and hips were obtained. CLINICAL HISTORY: . osteopenia FINDINGS: DEXA BONE DENSITY AXIAL SKELETON Using L1-4, the bone mineral density of the spine is 0.877 g/cm2, corresponding to T-score of -1.5 with a Z-score is 0.0. Using the left hip, the bone mineral density of the total hip is 0.560 g/cm2, corresponding to a T-score of -3.1 with a Z-score of -2.1. Using the right hip, the bone mineral density of the total hip is 0.641 g/cm2, corresponding to a T-score of -2.5 with a Z-score of -1.4. NOTE: T-score: Standard deviation compared with peak bone mass of young adult mean. *Following the recommendations of the International Society of Bone Densitometry, classification of hip BMD is based on the lower of two T-scores; total hip or femoral neck. IMPRESSION: Osteoporosis: Lowest T-score is at or below -2.5. This patient's T-score meets the World Health Organization criteria for osteoporosis. FRAX not reported because: Some T-score for Spine Total or hip Total or femoral neck at or below-2.5. Reviewed, Interpreted and Dictated by Fidelia Kothari MD Transcribed by Morelia Brown Authenticated and [facility]
== END ==
PROVIDERS: PCP Family Medicine; Visit Provider Nurse Practitioner Family
DX: M85.89 Other specified disorders of bone density and structure, multiple sites (principal); M54.2 Cervicalgia; M54.9 Dorsalgia, unspecified
CPT/HCPCS: 77080

== ENCOUNTER 2022-10-22 11:16 | Emergency (ER) | payer MEDICARE, MEDICAID, SELFPAY ==
[2022-10-22] VITALS (15 sets, daily range): BP systolic 94–137; BP diastolic 49–74; PULSE 52–60; RESP 14–20; TEMP 36.4–36.9; O2SAT 96–100; BMI 31.1
--- NOTE | 2022-10-22 11:19 | PC.NURSE ---
poison control called prior to pts arrival, reports pt accidentally took Lyrica approx 2500 mg this morning. Reports to observe pt for at least 4 hours. States can given pt charcoal but may not be helpful and will make pt an aspiration risk. Notified Dr. Dowling of what poison control stated
--- NOTE | 2022-10-22 11:21 | PC.NURSE ---
ISMAEL ARRIAGA at
--- NOTE | 2022-10-22 11:28 | ECG_ITS ---
APPROVED REPORT Exam: Resting ECG HR:58 bpm ECG Measurements Heart Rate 58 AXES ND 182 P 27 QRSd 101 QRS 13 QT 425 T 30 QTc 421 Conclusion SINUS BRADYCARDIA MINIMAL VOLTAGE CRITERIA FOR LVH, CONSIDER NORMAL VARIANT [MEETS CRITERIA IN ONE OF: R(aVL), S(V1), R(V5), R(V5/V6)+S(V1)] BORDERLINE ECG UNCONFIRMED REPORT Electronically signed by : Ulises Negrete MD 10/22/2022 19:36:18
[2022-10-22 11:49] LABS: Basophils % 0.5 % (0.1-2.0); Eosinophils # 0.2 K/mm3 (0.0-0.4); Eosinophils % 4.5 % (0.1-12.0); Hematocrit 37.6 % (37.0-47.0); Hemoglobin 11.8 g/dL (12.2-16.2); Lymphocytes # 0.8 K/mm3 (0.7-4.5); Mean Corpuscular HGB Conc 31.3 g/dL (31.8-35.4); Mean Corpuscular Hemoglobin 29.9 pg (27.0-31.2); Mean Corpuscular Volume 95.4 fl (81-99); Mean Platelet Volume 8.5 fl (7.4-10.4); Monocytes # 0.2 K/mm3 (0.1-1.0); Monocytes % 5.2 % (1.7-9.3); Neutrophils % 71.8 % (37.0-80.0); Platelet Count 273 K/mm3 (142-424); Red Blood Count 3.95 M/mm3 (4.20-5.40); Red Cell Distribution Width 13.9 % (11.5-17.5); White Blood Count 4.2 K/mm3 (4.8-10.8)
--- NOTE | 2022-10-22 11:50 | PC.NURSE ---
notified ER pt is more droswy, pt on bus monitor and continuous pulse ox. VSS wnl at this time
[2022-10-22 11:56] LABS: Alanine Aminotransferase 31 U/L (12-78); Albumin Level 3.8 g/dl (3.5-5.0); Albumin/Globulin Ratio 1.3 (1.1-1.8); Alkaline Phosphatase 109 U/L (38-126); Anion Gap 10.7 mEq/L (5-15); Aspartate Amino Transferase 36 U/L (14-36); Bilirubin,Total 0.3 mg/dl (0.2-1.3); Blood Urea Nitrogen 19 mg/dl (7-17); Calcium 8.7 mg/dl (8.4-10.2); Carbon Dioxide 28 mmol/L (22.0-30.0); Chloride 108 mmol/L (98-107); Creatinine Clearance Estimated 84 mL/min (50-200); Estimated Glomerular Filt Rate 56 ml/min (>60); GFR (African American) 68 ML/MIN (>60); Globulin 2.9 g/dL (1.3-3.2); Glucose 111 mg/dl (74-100); Potassium 3.7 mmoL/L (3.5-5.1); Sodium 143 mmol/L (136-145); Total Protein,Serum 6.7 g/dl (6.3-8.2)
--- NOTE | 2022-10-22 11:58 | PC.NURSE ---
pt given additional warm blanket, call light in reach, pt taking po fluids at this time. will continue to monitor
[2022-10-22 12:15] LABS: Acetaminophen < 10 ug/ml (10-30); Salicylate < 1.0 mg/dL (2.0-20.0)
[2022-10-22 12:16] LABS: Ethyl Alcohol < 10 mg/dl (0-10)
[2022-10-22 12:26] LABS: Thyroid Stimulating Hormone 1.07 uIU/mL (0.465-4.68)
--- NOTE | 2022-10-22 13:04 | HMH.EDGENADL ---
Discharge Plan Disposition Patient Disposition: Home, Self-Care Chief Complaint: Overdose Prescriptions Prescriptions: No Action naproxen 500 mg tablet 500 mg PO Q12H PRN (Reason: pain) venlafaxine 75 mg capsule,extended release 24hr 150 mg PO BID cholecalciferol (vitamin D3) 1,000 unit capsule 1,000 unit PO DAILY zinc acetate [Galzin] 50 mg (zinc) capsule 50 mg PO DAILY bumetanide 1 mg tablet 1 mg PO DAILY levothyroxine 125 mcg tablet 125 mcg PO DAILY potassium chloride 10 mEq capsule, extended release 10 meq PO DAILY vitamin B complex-folic acid 400 mcg tablet extended release 1 tab PO DAILY Label Comments: TAKE ONE TABLET BY MOUTH EVERY DAY diclofenac sodium 2 GM solution in packet 2 gm TP QID rivaroxaban 20 MG tablet 20 mg PO DAILY Rx Instructions: must administer with evening meal metoprolol succinate 25 MG tablet extended release 24 hr 25 mg PO DAILY promethazine 25 mg Tablet 25 mg PO Q6H PRN (Reason: Nausea And Vomiting) Qty: 20 0RF topiramate 50 tablet 50 mg PO BID Label Comments: ferrous sulfate 325 MG tablet 325 mg PO DAILY pramipexole 1 tablet 1 mg PO TID pantoprazole 40 MG tablet,delayed release (DR/EC) 40 mg PO DAILY hydrocodone-acetaminophen 7.5-325 mg tablet 1 tab PO QID Qty: 120 0RF Referrals Follow up/Referrals: Ulises Judd MD [Primary Care Provider] - See instructions Clinical Impressions Clinical Impression: Overdose Discharge ED Provider: Ramu Dowling General Adult HPI General Chief complaint: Overdose Stated complaint: Accidentally took wrong medication Time Seen by Provider: 10/22/22 11:20 Mode of Arrival: Ambulatory Source of Information: Patient Limitations: No Limitations Description of Symptoms (Recalled from ER Triage Doc. by RN): Pt reports accidental ingestion of Lyrica at approx 1015 this morning. Pt reports she normally puts all of her pills in an old pill bottles and takes them at one time. Reports she picked up the other bottle by mistake. Lyrica bottle pt brought in is 75 mg capsules, she has 17 capsules left in her bottle. Prescripton was filled on 10/09/22 s/p cervical spine surgery. pt reports does fell drowsy. History of Present Illness HPI narrative: 61-year-old female presents after accidental ingestion of Lyrica. This occurred around 1015 this morning. She reports that she put them in an old pill bottle and accidentally took them. They are 75 mg she estimated taking 2500 mg total, about 30 pills. She reports mild drowsiness on initial exam. This was not intentional. No other symptoms we did discuss with poison control and they did recommended observation for 8 hours Related Data Home Medications Medication Instructions Recorded Confirmed cholecalciferol (vitamin D3) 25 1,000 unit PO DAILY Supplement 07/23/17 07/31/22 mcg (1,000 unit) capsule naproxen 500 mg tablet 500 mg PO Q12H PRN pain 07/23/17 07/31/22 venlafaxine 75 mg capsule,extended 150 mg PO BID Depression 07/23/17 07/31/22 release 24 hr zinc acetate 50 mg (zinc) capsule 50 mg PO DAILY Supplement 07/23/17 07/31/22 (Galzin) topiramate 50 mg tablet 50 mg PO BID HEADACHES 08/20/17 07/31/22 ferrous sulfate 325 mg (65 mg 325 mg PO DAILY Supplement 05/06/18 07/31/22 iron) tablet pramipexole 1 mg tablet 1 mg PO TID restless legs 05/06/18 07/31/22 pantoprazole 40 mg tablet,delayed 40 mg PO DAILY stomach 05/28/20 07/31/22 release diclofenac sodium 2 % topical 2 gm topical QID NSAID 04/13/21 07/31/22 solution in packet vitamin B complex-folic acid ER 1 tab PO DAILY Supplement 04/26/21 07/31/22 400 mcg tablet,extended release bumetanide 1 mg tablet 1 mg PO DAILY Fluid 05/17/21 07/31/22 levothyroxine 125 mcg tablet 125 mcg PO DAILY Supplement 05/17/21 07/31/22 potassium chloride 10 mEq 10 meq PO DAILY Supplement 05/17/21 07/31/22 capsule,extended rel
--- NOTE | 2022-10-22 13:11 | PC.NURSE ---
checked on pt, pt sleeping when i entered room but alertable to soft tactile stimulation. Pt drank some of her mt. dew while in room via straw, pt tolerated well. call light in reach, at bs.
--- NOTE | 2022-10-22 16:01 | PC.NURSE ---
checked on pt at this time, pt reports feels like she is starting to feel more awake. Pt states no needs at this time, call ligt in reach
== END 2022-10-22 17:58 | disposition home or self-care (01) ==
PROVIDERS: Emergency Provider Emergency Medicine; PCP Family Medicine
DX: T42.71XA Poisoning by unspecified antiepileptic and sedative-hypnotic drugs, accidental (unintentional), initial encounter (principal); R53.83 Other fatigue
CPT/HCPCS: 80053; 80329; 84443; 85025; 93005; 96360; 99285

== ENCOUNTER → 2022-10-28 10:35 | Outpatient (POV) | payer MEDICARE, MEDICAID, SELFPAY ==
--- NOTE | 2022-10-28 11:14 | EXP.PAIN.SOA ---
[facility] Pain Management SOAP Note Subjective:: Patient is a pleasant 61-year-old female who presents today for follow-up. We are currently treating the patient for degenerative disc disease of cervical and lumbar spine with cervical and lumbar radiculopathy symptoms, sacroiliitis, bilateral knee pain, right foot pain. Today she states since our last visit she has had cervical fusion surgery on August 25. Patient states that they were updating additional imaging for an MRI when she was contacted by Dr. Velazquez and stated that she needed to go back to ER for emergency surgery due to spinal cord compression. Patient states that he was worried about additional paralyzation and that she did end up having additional surgery on August 27. Patient states immediately following the surgery she did feel significant improvement in the numbness and tingling in her bilateral upper extremities. Patient is still wearing her c-collar. Patient denies any other problems following this surgery. She states she is scheduled to see the surgeon later today for follow-up. Patient does use a cane for ambulation. She states she does not even think that she has had additional improvement in her right foot that she feels that she has better posture and less pain in that area. Patient denies right her pain today a 7 out of 10 and states it is all along her right knee. She does describe this as an aching, throbbing sensation that is worse with increased activity. Patient states her pain does interfere with her activities of daily living such as cooking and cleaning. Patient has previously had intra-articular injections that did provide significant relief of upwards of 80% or more lasting long-term for over a year or more. Patient is interested in repeating this injection. Patient is currently managed with [place] 7.5 mg 4 times a day from our office and pregabalin 75 mg twice a day from an outside provider. Patient denies any side effects from these medications. Her Tavo is [id number]. Its been reviewed and appropriate. Review of Systems: General: No recent weight changes, no fever, no sleep disturbances Respiratory: No cough, no shortness of air, no recurring pulmonary infections Cardiovascular/peripheral vascular: No chest pain, no palpitations, no edema, no shortness of breath Gastrointestinal: No new onset incontinence, normal bowel movements reported Genitourinary: No new onset incontinence Musculoskeletal: Right knee pain Psychiatric: [Normal mood/affect] Neurological: [Denies weakness in extremities], [denies balance issues] Objective:: Physical Exam: General: Alert and oriented x3, no acute distress, pleasant and cooperative Lungs: Respirations even and unlabored, symmetrical chest expansion Eyes: PERRL Musculoskeletal: Flexion and extension of right knee somewhat guarded secondary to pain, [antalgic gait noted] Neurological: Speech clear, no gross sensory deficit Assessment:: Degenerative disc disease of cervical and lumbar spine with cervical and lumbar radiculopathy symptoms, bilateral knee pain, right foot pain, right knee osteoarthritis Plan:: Patient is experiencing worsening pain in her right knee with limited range of motion. I have discussed with the patient that she may benefit from repeat intra-articular knee injection. Risk and benefits were discussed with the patient and she would like to proceed forward with this plan of care. Patient is not on any blood thinners. I will also refill her [place] 7.5 mg 4 times a day and provide a 1 month supply of this medication. We will schedule her for a right knee intra-articular injection. Patient has been advised of risks of oversedation with the prescribed medication. Narcan has been offered to the patient in the event of oversedation. Patient has been advised that a family member should also be educated regarding administration of Narcan. Patient has been instructed to contact the clinic with any concer
[2022-10-28 12:01] LABS: Amphetamine/Metha Screen,Urine Negative ng/ml (<1000)
[2022-10-28 12:02] LABS: Barbiturates Screen,Urine Negative ng/ml (<200); Benzodiazepines Screen,Urine Negative ng/ml (<200)
[2022-10-28 12:03] LABS: Cannabinoid Screen,Urine Negative ng/ml (<50)
[2022-10-28 12:04] LABS: Cocaine Screen,Urine Negative ng/ml (<300); Methadone Screen,Urine Negative ng/ml (<300)
[2022-10-28 12:05] LABS: Opiate Screen,Urine Negative ng/ml (<300); Phencyclidine Screen,Urine Negative ng/ml (<25)
[2022-10-28 12:30] VITALS: BP 146/87; PULSE 62; RESP 18; O2SAT 98; BMI 31.1
[2022-11-03 15:07] LABS: Opiates Negative (Cutoff=100)
== END ==
PROVIDERS: PCP Family Medicine; Visit Provider Nurse Practitioner Family
DX: Z79.891 Long term (current) use of opiate analgesic (principal); M50.10 Cervical disc disorder with radiculopathy, unspecified cervical region; M25.561 Pain in right knee; M25.562 Pain in left knee; M17.12 Unilateral primary osteoarthritis, left knee; M79.671 Pain in right foot
CPT/HCPCS: 80305; 80361; 80365; 99212; G0463; G0480

== ENCOUNTER 2022-11-05 10:26 | Day surgery (SDC) | payer MEDICARE, MEDICAID, SELFPAY ==
[2022-11-05 10:38] VITALS: BP 134/82; PULSE 59; RESP 18; TEMP 36.2; O2SAT 100; BMI 31.3
[2022-11-05 11:05] VITALS: BP 133/66; PULSE 57; RESP 18; O2SAT 100
--- NOTE | 2022-11-05 11:07 | EXP.PAIN.PRO ---
Procedure Date: 11/05/22 Time: 11:00 Anesthesiologist:: Charles Setele CRNA Complications:: None Pre-procedure Diagnosis:: Degenerative osteoarthritis right knee. Chronic right knee pain. Post-procedure Diagnosis:: Same. Indications for Procedure:: Patient is a very pleasant 61-year-old female that comes our clinic today for right intra-articular knee injection. Patient has had this 2 years ago with significant improvement terms of her overall right knee pain. Today she complains of severe right knee pain with ambulation. Procedure Details:: Informed consent was obtained risk and benefits of the procedure were explained to the patient. Patient was taken the procedure room the right knee was prepped using ChloraPrep. A 25-gauge needle was used to inject 10 mL bupivacaine 0.25% and Depo-Medrol 40 mg into the right knee. The patient tolerated the procedure well with no complications. Plan and Disposition:: Patient was discharged without incident.
== END 2022-11-05 11:05 | disposition home or self-care (01) ==
PROVIDERS: PCP Family Medicine; Visit Provider Nurse Anesthetist, Certified Registered
DX: M17.11 Unilateral primary osteoarthritis, right knee (principal); M25.561 Pain in right knee; G89.29 Other chronic pain
CPT/HCPCS: 20610

== ENCOUNTER → 2022-11-20 11:46 | Outpatient (POV) | payer MEDICARE, MEDICAID, SELFPAY ==
--- NOTE | 2022-11-20 12:04 | EXP.PAIN.SOA ---
[facility] Pain Management SOAP Note Subjective:: Patient is a pleasant 61-year-old female who presents today for follow-up of intra-articular right knee injection on 11/05/2022. We are currently treating the patient for degenerative disc disease of cervical and lumbar spine with cervical and lumbar radiculopathy symptoms, sacroiliitis, bilateral knee pain, right foot pain. Today she states that she has had at least 90 to 100% improvement in her right knee pain symptoms. She rates her pain a 1 out of 10. Patient states she has been able to increase her activity with decreased pain symptoms following this injection. She is currently managed with [place] 7.5 mg 4 times a day from our office and pregabalin 75 mg twice a day from an outside provider. Patient denies any side effects from this medication. Her Tavo is [id number]. Its been reviewed and appropriate. Review of Systems: General: No recent weight changes, no fever, no sleep disturbances Respiratory: No cough, no shortness of air, no recurring pulmonary infections Cardiovascular/peripheral vascular: No chest pain, no palpitations, no edema, no shortness of breath Gastrointestinal: No new onset incontinence, normal bowel movements reported Genitourinary: No new onset incontinence Musculoskeletal: Low back pain Psychiatric: [Normal mood/affect] Neurological: [Denies weakness in extremities], [denies balance issues] Objective:: Physical Exam: General: Alert and oriented x3, no acute distress, pleasant and cooperative Lungs: Respirations even and unlabored, symmetrical chest expansion Eyes: PERRL Musculoskeletal: Flexion and extension of lumbar [spine] somewhat guarded secondary to pain, [antalgic gait noted] Neurological: Speech clear, no gross sensory deficit Assessment:: Degenerative disc disease of cervical and lumbar spine with cervical and lumbar radiculopathy symptoms, sacroiliitis, bilateral knee pain, right foot pain Plan:: Patient has had significant improvement of her pain symptoms in her right knee following her intra-articular injection and does not require any additional injective therapy at this time. We will send in a refill of her [place] 7.5 mg 4 times a day and provide a 1 month supply of this medication. Patient will return to clinic in 1 month for reevaluation of symptoms, medication refill and follow-up. Patient has been advised of risks of oversedation with the prescribed medication. Narcan has been offered to the patient in the event of oversedation. Patient has been advised that a family member should also be educated regarding administration of Narcan. Patient has been instructed to contact the clinic with any concerns before the next appointment. Dr. Barnett has reviewed this note and agrees with this plan of care. This note was dictated using voice recognition software and make contain errors or omissions. [facility] Disclaimer: The information contained in this section may have been updated after the patient was seen, as this information can be updated by other users. Medical History Abnormal electrocardiography Dyspnea Family History (Updated 11/05/22 @ 10:41 by Raisa Corley RN) Other No significant family history Social History Smoking Status: Never smoker second hand exposure: No alcohol intake: never substance use type: denies use current occupational status: retired Travel in the last 8 weeks: None household members: spouse housing: house current occupational exposures/hazards: No caffeine: Yes
[2022-11-20 12:24] VITALS: BP 164/67; PULSE 57; RESP 18; O2SAT 97; BMI 31.1
== END | disposition home or self-care (01) ==
PROVIDERS: PCP Family Medicine; Visit Provider Nurse Practitioner Family
DX: M51.16 Intervertebral disc disorders with radiculopathy, lumbar region (principal); M50.10 Cervical disc disorder with radiculopathy, unspecified cervical region; M46.1 Sacroiliitis, not elsewhere classified; M25.561 Pain in right knee; M25.562 Pain in left knee
CPT/HCPCS: 99212; G0463

== ENCOUNTER → 2022-12-19 11:20 | Outpatient (POV) | payer MEDICARE, MEDICAID, SELFPAY ==
--- NOTE | 2022-12-19 11:47 | EXP.PAIN.SOA ---
[facility] Pain Management SOAP Note Subjective:: Patient is a pleasant 62-year-old female who presents today for 1 month follow-up and medication refill. We are currently treating the patient for degenerative disc disease of cervical and lumbar spine with cervical and lumbar radiculopathy symptoms, sacroiliitis, bilateral knee pain, right foot pain. Today she rates her pain a 5 out of 10. Patient denies any new trauma or injury. Patient denies any change location or type of pain she experiences. She does state that she continues to have occasional spasms and that her pain does good on some days and not so great on others. Today she does state it is a better day. She does state that she is scheduled to go see a medicaid collection specialist up at Dr. Velazquez's office tomorrow. She is currently managed with [place] 7.5 mg 4 times a day from our office and pregabalin 75 mg twice a day from an outside provider. Patient denies any side effects from these medications. Her Tavo is [id number]. Its been reviewed and appropriate. Review of Systems: General: No recent weight changes, no fever, no sleep disturbances Respiratory: No cough, no shortness of air, no recurring pulmonary infections Cardiovascular/peripheral vascular: No chest pain, no palpitations, no edema, no shortness of breath Gastrointestinal: No new onset incontinence, normal bowel movements reported Genitourinary: No new onset incontinence Musculoskeletal: Bilateral knee pain, neck pain, low back pain Psychiatric: [Normal mood/affect] Neurological: [Denies weakness in extremities], [denies balance issues] Objective:: Physical Exam: General: Alert and oriented x3, no acute distress, pleasant and cooperative Lungs: Respirations even and unlabored, symmetrical chest expansion Eyes: PERRL Musculoskeletal: Flexion and extension of cervical, lumbar [spine] somewhat guarded secondary to pain, [antalgic gait noted] Neurological: Speech clear, no gross sensory deficit Assessment:: Degenerative disc disease of cervical and lumbar spine with cervical and lumbar radiculopathy symptoms, sacroiliitis, bilateral knee pain, right foot pain Plan:: I will refill the patient's [place] 7.5 mg 4 times a day and provide a 1 month supply of this medication. We will follow-up with the patient in 1 month for reevaluation of symptoms and medication refill. Patient has been advised of risks of oversedation with the prescribed medication. Narcan has been offered to the patient in the event of oversedation. Patient has been advised that a family member should also be educated regarding administration of Narcan. Patient has been instructed to contact the clinic with any concerns before the next appointment. Dr. Barnett has reviewed this note and agrees with this plan of care. This note was dictated using voice recognition software and make contain errors or omissions. [facility] Disclaimer: The information contained in this section may have been updated after the patient was seen, as this information can be updated by other users. Medical History Abnormal electrocardiography Dyspnea Family History (Updated 11/05/22 @ 10:41 by Raisa Corley RN) Other No significant family history Social History Smoking Status: Never smoker second hand exposure: No alcohol intake: never substance use type: denies use current occupational status: retired Travel in the last 8 weeks: None household members: spouse housing: house current occupational exposures/hazards: No caffeine: Yes
[2022-12-19 12:21] VITALS: BP 141/51; PULSE 60; RESP 18; O2SAT 98; BMI 30.5
== END | disposition home or self-care (01) ==
PROVIDERS: PCP Family Medicine; Visit Provider Nurse Practitioner Family
DX: M50.10 Cervical disc disorder with radiculopathy, unspecified cervical region (principal); M51.16 Intervertebral disc disorders with radiculopathy, lumbar region; M46.1 Sacroiliitis, not elsewhere classified; M25.561 Pain in right knee; M25.562 Pain in left knee; M79.671 Pain in right foot
CPT/HCPCS: 99212; G0463

== ENCOUNTER → 2023-01-02 13:21 | Outpatient (POV) | payer MEDICARE, MEDICAID, SELFPAY ==
--- NOTE | 2023-01-02 13:49 | EXP.PAIN.SOA ---
[facility] Pain Management SOAP Note Subjective:: Patient is a pleasant 62-year-old female who presents today for follow-up. We are currently treating the patient for degenerative disc disease of cervical and lumbar spine with cervical and lumbar radiculopathy symptoms, sacroiliitis, bilateral knee pain, right foot pain. Today she rates her pain a 7 out of 10. She stated that approximately a few days ago she was sitting and turned and immediately had a popping sensation in her mid back. Patient states she is continued to have significant pain at this location and describes it as a constant aching, throbbing sensation that is worse with increased activity. Patient does have a history of fractures and significant osteoporosis. Patient is concerned that she may have fractured her back. Patient denies any other injury or trauma. Patient is currently managed with [place] 7.5 mg 4 times a day from our office and pregabalin 75 mg twice a day from an outside provider. She denies any side effects from this medication. She does state that she also feels like she has had increased grogginess over the last few days and has not even taken any of her pain medication. Patient states that she feels like she could just go back to sleep at any time during the day. Her Tavo is [id number]. Its been reviewed and appropriate. Review of Systems: General: No recent weight changes, no fever, no sleep disturbances Respiratory: No cough, no shortness of air, no recurring pulmonary infections Cardiovascular/peripheral vascular: No chest pain, no palpitations, no edema, no shortness of breath Gastrointestinal: No new onset incontinence, normal bowel movements reported Genitourinary: No new onset incontinence Musculoskeletal: Mid back pain Psychiatric: [Normal mood/affect] Neurological: [Denies weakness in extremities], [denies balance issues] Objective:: Physical Exam: General: Alert and oriented x3, no acute distress, pleasant and cooperative Lungs: Respirations even and unlabored, symmetrical chest expansion Eyes: PERRL Musculoskeletal: Flexion and extension of thoracic [spine] somewhat guarded secondary to pain, [antalgic gait noted] Neurological: Speech clear, no gross sensory deficit Assessment:: Degenerative disc disease of cervical and lumbar spine with cervical and lumbar radiculopathy symptoms, bilateral knee pain, sacroiliitis, right foot pain, mid back pain Plan:: Patient is experiencing significant pain at her mid back with radiating symptoms. I will order x-ray imaging of her thoracic spine to as well as order updated labs of CBC, CMP, thyroid panel and A1c related to her increased grogginess. I have counseled the patient to make a follow-up appointment with her primary care doctor related to her increased grogginess. Patient will return to clinic in 1 week following her x-ray imaging and lab work for reevaluation of symptoms and plan of care. Patient has been instructed to contact the clinic with any concerns before the next appointment. Dr. Barnett has reviewed this note and agrees with this plan of care. This note was dictated using voice recognition software and make contain errors or omissions. [facility] Disclaimer: The information contained in this section may have been updated after the patient was seen, as this information can be updated by other users. Medical History Abnormal electrocardiography Dyspnea Family History (Updated 11/05/22 @ 10:41 by Raisa Corley RN) Other No significant family history Social History Smoking Status: Never smoker second hand exposure: No alcohol intake: never substance use type: denies use current occupational status: retired Travel in the last 8 weeks: None household members: spouse housing: house current occupational exposures/hazards: No caffeine: Yes
[2023-01-02 15:18] LABS: Amphetamine/Metha Screen,Urine Negative ng/ml (<1000)
[2023-01-02 15:19] LABS: Barbiturates Screen,Urine Negative ng/ml (<200)
[2023-01-02 15:20] LABS: Benzodiazepines Screen,Urine Positive ng/ml (<200); Cannabinoid Screen,Urine Negative ng/ml (<50)
[2023-01-02 15:21] LABS: Cocaine Screen,Urine Negative ng/ml (<300)
[2023-01-02 15:22] LABS: Methadone Screen,Urine Negative ng/ml (<300); Opiate Screen,Urine Negative ng/ml (<300)
[2023-01-02 15:23] LABS: Phencyclidine Screen,Urine Negative ng/ml (<25)
[2023-01-02 15:40] VITALS: BP 146/76; PULSE 56; RESP 18; O2SAT 98; BMI 31.1
[2023-01-09 13:53] LABS: Opiates Negative (Cutoff=100)
== END ==
PROVIDERS: PCP Family Medicine; Visit Provider Nurse Practitioner Family
DX: Z79.891 Long term (current) use of opiate analgesic (principal); M50.10 Cervical disc disorder with radiculopathy, unspecified cervical region; M51.16 Intervertebral disc disorders with radiculopathy, lumbar region; M46.1 Sacroiliitis, not elsewhere classified; M25.561 Pain in right knee; M25.562 Pain in left knee; M79.671 Pain in right foot; M54.6 Pain in thoracic spine
CPT/HCPCS: 99212; 80305; 80361; 80365; G0463; G0480

== ENCOUNTER → 2023-01-02 14:38 | Outpatient (CLI) | payer MEDICARE, SELFPAY ==
--- NOTE | 2023-01-02 14:43 | XR_ITS ---
FINAL REPORT TECHNIQUE: 3 views CLINICAL HISTORY: ACUTE PAIN below shoulder blades sx jul 2022 felt a pop then started having pain FINDINGS: There is no fracture present. There is dextroscoliosis. Moderate degenerative changes are seen. There are postoperative changes in the lower cervical and upper thoracic spine from fusion. IMPRESSION: Degenerative and postoperative changes with no acute bony abnormality. Reviewed, Interpreted and Dictated by Woody Chopra III, MD Transcribed by Justine Arevalo Authenticated and [facility]
[2023-01-02 15:57] LABS: Basophils % 0.4 % (0.1-2.0); Eosinophils # 0.2 K/mm3 (0.0-0.4); Eosinophils % 4.8 % (0.1-12.0); Hematocrit 40.6 % (37.0-47.0); Hemoglobin 12.8 g/dL (12.2-16.2); Lymphocytes % 23.4 % (10-50); Mean Corpuscular HGB Conc 31.6 g/dL (31.8-35.4); Mean Corpuscular Hemoglobin 29.3 pg (27.0-31.2); Mean Corpuscular Volume 92.6 fl (81-99); Mean Platelet Volume 8.6 fl (7.4-10.4); Monocytes # 0.3 K/mm3 (0.1-1.0); Monocytes % 6.5 % (1.7-9.3); Neutrophils # 2.8 K/mm3 (1.8-7.8); Platelet Count 231 K/mm3 (142-424); Red Blood Count 4.39 M/mm3 (4.20-5.40); Red Cell Distribution Width 14.1 % (11.5-17.5); White Blood Count 4.3 K/mm3 (4.8-10.8)
[2023-01-02 16:13] LABS: Chloride 106 mmol/L (98-107); Sodium 142 mmol/L (136-145)
[2023-01-02 16:16] LABS: Alanine Aminotransferase 35 U/L (12-78); Albumin Level 3.9 g/dl (3.5-5.0); Albumin/Globulin Ratio 1.4 (1.1-1.8); Alkaline Phosphatase 130 U/L (38-126); Aspartate Amino Transferase 40 U/L (14-36); Bilirubin,Total 0.3 mg/dl (0.2-1.3); Blood Urea Nitrogen 15 mg/dl (7-17); Carbon Dioxide 30 mmol/L (22.0-30.0); Estimated Glomerular Filt Rate 63 ml/min (>60); GFR (African American) 77 ML/MIN (>60); Globulin 2.7 g/dL (1.3-3.2); Total Protein,Serum 6.6 g/dl (6.3-8.2)
[2023-01-02 16:17] LABS: Calcium 8.7 mg/dl (8.4-10.2); Glucose 88 mg/dl (74-100)
[2023-01-02 16:26] LABS: Hemoglobin A1C 5.7 % (4.0-6.0)
[2023-01-02 16:35] LABS: Free Thyroxine Index 2.1 ug/dL (5.93-13.13); T4 (Thyroxine) 6.1 ug/dl (5.53-11.0); Triiodothryronine (T3) Uptake 35 % (23.5-40.5)
[2023-01-02 16:49] LABS: Thyroid Stimulating Hormone 1.43 uIU/mL (0.465-4.68)
== END ==
PROVIDERS: PCP Family Medicine; Visit Provider Nurse Practitioner Family
DX: M54.6 Pain in thoracic spine (principal); R53.83 Other fatigue; Z79.899 Other long term (current) drug therapy
CPT/HCPCS: 36415; 72072; 80053; 80305; 80361; 80365; 83036; 84436; 84443; 84479; 85025; 99212; G0463; G0480

== ENCOUNTER 2023-01-08 14:00 | Outpatient (RCR) | payer MEDICARE, MEDICAID, SELFPAY ==
--- NOTE | 2022-09-18 11:23 | HMH.SLAPHASI ---
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 Does Patient Qualify for Service Yes Qualify/Failure Comment Based on the results of the cognitive communication assessment, Sue would benefit from skilled speech therapy services to improve cognitive linguistic skills to her baseline. Plan Pt will be seen # times/week 1 for # weeks 12 Anticipate reaching STG in # weeks 8 Anticipate reaching LTG in # weeks 12 Pt/Guardian verbally ack understanding Yes of dx/prognosis/goals Pt/Guardian verbally ack understanding Yes of/consent to tx prog G -code Required No STG-Verbal Expressive Language Naming Actions & Describing Objects 90 Define Words 90 STG-Attending/Orientation/Memory Delayed Recall 90 Memory Recall 90 STG-Comparative/Linguistic Skills Thought Organization 90 Sequence Events in Correct Order 90 Care Home Goals Increase cognitive skills to communicate Yes w/family & friends Education Instructions provided Preliminary assesment results, goals, and POC were discussed with pt who expressed understanding. Pt/Caregiver Able to Recall Information Able to recall/restate Reinforcement needed No Speech & Language HPI History Present Illness Description of Patient Problem Ms. Wood is a 61 year old female presenting to [facility] for an assessment of cognitive communication skills. She was admitted to on 08/23/22 followng a concerning MRI. She was c/o worsening shoulder pain and numbness in her hands , which prompted the MRI order . Cervical spine MRI showed
== END 2023-01-08 14:05 | disposition home or self-care (01) ==
LOC: ST 14:00
PROVIDERS: PCP Family Medicine; Visit Provider Physical Medicine & Rehabilitation
DX: F80.89 Other developmental disorders of speech and language (principal); R41.841 Cognitive communication deficit; M43.12 Spondylolisthesis, cervical region
CPT/HCPCS: 92523; 97129; 97130

== ENCOUNTER → 2023-01-15 11:54 | Outpatient (POV) | payer MEDICARE, SELFPAY ==
--- NOTE | 2023-01-15 12:03 | A.OFFVIS_ITS ---
[facility] Pain Management SOAP Note Subjective:: Patient is a pleasant 62-year-old female who presents today for medication refill and follow-up. We are currently treating the patient for degenerative disc disease of cervical and lumbar spine with cervical and lumbar radiculopathy symptoms, sacroiliitis, bilateral knee pain, right foot pain. Today she rates her pain an 8 out of 10. Patient denies any new trauma or injury. Patient denies any change to location or type of pain she experiences. Patient is currently managed with [place] 7.5 mg 4 times a day from our office and pregabalin 75 mg twice a day from an outside provider. Patient denies any side effects from this medication. Her Tavo is [id number]. Its been reviewed and ap propriate. Review of Systems: General: No recent weight changes, no fever, no sleep disturbances Respiratory: No cough, no shortness of air, no recurring pulmonary infections Cardiovascular/peripheral vascular: No chest pain, no palpitations, no edema, no shortness of breath Gastrointestinal: No new onset incontinence, normal bowel movements reported Genitourinary: No new onset incontinence Musculoskeletal: Low back pain Psychiatric: [Normal mood/affect] Neurological: [Denies weakness in extremities], [denies balance issues] Objective:: Physical Exam: General: Alert and oriented x3, no acute distress, pleasant and cooperative Lungs: Respirations even and unlabored, symmetrical chest expansion Eyes: PERRL Musculoskeletal: Flexion and extension of lumbar [spine] somewhat guarded secondary to pain, [antalgic gait noted] Neurological: Speech clear, no gross sensory deficit Assessment:: Degenerative disc disease of cervical and lumbar spine with cervical and lumbar radiculopathy symptoms, sacroiliitis, bilateral knee pain, right foot pain Plan:: We will refill the patient's [place] 5 mg 4 times a day and provide a 1 month supply of this medication. I have discussed with the patient that her urine drug screen was negative and out of precaution we will do a pill count in future. Patient will return to clinic in 1 month for reevaluation of symptoms and plan of care. Patient has been advised of risks of oversedation with the prescribed medication. Narcan has been offered to the patient in the event of oversedation. Patient has been advised that a family member should also be educated regarding administration of Narcan. Patient has been instructed to contact the clinic with any concerns before the next appointment. Dr. Barnett has reviewed this note and agrees with this plan of care. This note was dictated using voice recognition software and make contain errors or omissions. [facility] Disclaimer: The information contained in this section may have been updated after the patient was seen, as this information can be updated by other users. Medical History Abnormal electrocardiography Dyspnea Family History (Updated 11/05/22 @ 10:41 by Raisa Corley RN) Other No significant family history Social History Smoking Status: Never smoker second hand exposure: No alcohol intake: never substance use type: denies use current occupational status: retired Travel in the last 8 weeks: None household members: spouse housing: house current occupational exposures/hazards: No caffeine: Yes
[2023-01-15 14:58] VITALS: BP 146/72; PULSE 62; RESP 18; O2SAT 97; BMI 31.1
== END | disposition home or self-care (01) ==
PROVIDERS: PCP Family Medicine; Visit Provider Nurse Practitioner Family
DX: M50.10 Cervical disc disorder with radiculopathy, unspecified cervical region (principal); M51.16 Intervertebral disc disorders with radiculopathy, lumbar region; M46.1 Sacroiliitis, not elsewhere classified; M25.561 Pain in right knee; M25.562 Pain in left knee; M79.671 Pain in right foot
CPT/HCPCS: 99212; G0463

== ENCOUNTER 2023-01-15 14:00 | Outpatient (RCR) | payer MEDICARE, MEDICAID, SELFPAY | END 2023-01-15 14:05 | disposition home or self-care (01) | LOC: OT 14:00 | PROVIDERS: PCP Family Medicine; Visit Provider Physical Medicine & Rehabilitation | DX: M47.812 Spondylosis without myelopathy or radiculopathy, cervical region (principal) | CPT/HCPCS: 97010; 97014; 97035; 97110; 97140; 97164; 97165; 97530; G0283 ==

== ENCOUNTER 2023-01-15 15:00 | Outpatient (RCR) | payer MEDICARE, MEDICAID, SELFPAY | END 2023-01-15 15:05 | disposition home or self-care (01) | LOC: PT 15:00 | PROVIDERS: PCP Family Medicine; Visit Provider Physical Medicine & Rehabilitation | DX: M47.812 Spondylosis without myelopathy or radiculopathy, cervical region (principal); R41.841 Cognitive communication deficit | CPT/HCPCS: 20561; 97010; 97014; 97110; 97140; 97163; 97164; 97530; 97535; G0283 ==

== ENCOUNTER → 2023-02-17 10:54 | Outpatient (POV) | payer MEDICARE, SELFPAY ==
--- NOTE | 2023-02-17 11:22 | EXP.PAIN.SOA ---
[facility] Pain Management SOAP Note Subjective:: Patient is a pleasant 62-year-old female who presents today for medication refill and follow-up. We are currently treating the patient for degenerative disc disease of cervical and lumbar spine with cervical and lumbar radiculopathy symptoms, sacroiliitis, bilateral knee pain, right foot pain. Today she rates her pain an 8 out of 10. Patient denies any new trauma or injury. Patient does state that her pain today is more related to her neck and shoulders and describes this as an aching, throbbing sensation that is worse with increased activity. She does not have numbness and tingling into her right arm more than her left. Patient does state the pain interferes with her ability perform activities of daily living. Patient is currently managed with Riggins 7.5 mg 4 times a day from our office and pregabalin 75 mg twice a day from an outside provider along with diazepam 2 mg twice a day. Patient denies any side effects from this medication. Her Atvo is [id number]. Its been reviewed and appropriate. Review of Systems: General: No recent weight changes, no fever, no sleep disturbances Respiratory: No cough, no shortness of air, no recurring pulmonary infections Cardiovascular/peripheral vascular: No chest pain, no palpitations, no edema, no shortness of breath Gastrointestinal: No new onset incontinence, normal bowel movements reported Genitourinary: No new onset incontinence Musculoskeletal: Neck pain, bilateral shoulder pain, arm numbness and tingling Psychiatric: [Normal mood/affect] Neurological: [Denies weakness in extremities], [denies balance issues] Objective:: Physical Exam: General: Alert and oriented x3, no acute distress, pleasant and cooperative Lungs: Respirations even and unlabored, symmetrical chest expansion Eyes: PERRL Musculoskeletal: Flexion and extension of cervical [spine] somewhat guarded secondary to pain, [antalgic gait noted] Neurological: Speech clear, no gross sensory deficit Assessment:: Degenerative disc disease of cervical and lumbar spine with cervical and lumbar radiculopathy symptoms, sacroiliitis, bilateral knee pain, right foot pain Plan:: Patient is experiencing significant pain in her neck with radiating symptoms into her upper extremities and shoulders. Patient had limited range of motion of her cervical spine during today's visit. I have discussed with the patient that she may benefit from a cervical epidural steroid injection. Risk and benefits were explained to the patient and she would like to proceed forward with this plan of care. Patient is currently on blood thinners that is prescribed by Dr. Judd. We will contact his office and confirm that she can come off this medication prior to this injection. I will refill the patient's Riggins 7.5 mg 4 times a day and provide a 1 month supply of this medication. Patient will be scheduled for a MATHEUS C6-C7. Patient has been advised of risks of oversedation with the prescribed medication. Narcan has been offered to the patient in the event of oversedation. Patient has been advised that a family member should also be educated regarding administration of Narcan. Patient has been instructed to contact the clinic with any concerns before the next appointment. Dr. Barnett has reviewed this note and agrees with this plan of care. This note was dictated using voice recognition software and make contain errors or omissions. [facility] Disclaimer: The information contained in this section may have been updated after the patient was seen, as this information can be updated by other users. Medical History Abnormal electrocardiography Dyspnea Family History (Updated 11/05/22 @ 10:41 by Raisa Corley RN) Other No significant family history Social History Smoking Status: Never smoker second hand exposure: N
[2023-02-17 12:32] VITALS: BP 146/81; PULSE 68; RESP 18; O2SAT 99; BMI 31.1
== END | disposition home or self-care (01) ==
PROVIDERS: PCP Family Medicine; Visit Provider Nurse Practitioner Family
DX: M50.10 Cervical disc disorder with radiculopathy, unspecified cervical region (principal); M51.16 Intervertebral disc disorders with radiculopathy, lumbar region; M46.1 Sacroiliitis, not elsewhere classified; M25.561 Pain in right knee; M25.562 Pain in left knee; M79.671 Pain in right foot
CPT/HCPCS: 99212; G0463

== ENCOUNTER 2023-03-04 11:19 | Day surgery (SDC) | payer MEDICARE, SELFPAY ==
[2023-03-04 11:34] VITALS: BP 168/91; PULSE 58; RESP 18; TEMP 36.6; O2SAT 100; BMI 32.8
[2023-03-04 11:51] VITALS: BP 173/86; PULSE 56; RESP 18; O2SAT 97
[2023-03-04 11:52] VITALS: BP 173/86; PULSE 56; RESP 18
--- NOTE | 2023-03-04 12:03 | EXP.PAIN.PRO ---
Procedure Date: 03/04/23 Time: 12:02 Anesthesiologist:: Charles Steele CRNA Complications:: None Pre-procedure Diagnosis:: Degenerative disc cervical spine multilevels. Cervical posterior laminectomy. Status post anterior cervical discectomy as well as multilevel posterior fusion cervical spine. Right myofascial trapezius muscle pain. Post-procedure Diagnosis:: Same. Indications for Procedure:: Patient is a very pleasant 62-year-old female comes our clinic today for cervical epidural steroid injection. However, after further review regarding her anterior and posterior cervical fusion. I elected to simply give her right trapezius muscle trigger point injections. Patient's cervical multilevel fusion was done earlier this year. Patient's main complaint is right trapezius pain. Patient also reports she has right torn rotator cuff of the right shoulder. She is in care with orthopedic surgery waiting cardiac clearance for right shoulder rotator cuff repair. Procedure Details:: Details of the procedure explained to the patient. The patient taken to procedure room placed in the sitting position. The area over the right trapezius muscle was cleansed using chlorhexidine as a cleansing solution. Using a 25-gauge needle and a 10 cc solution containing 0.25% Marcaine +1% lidocaine and 40 mg of Depo-Medrol 3 separate areas over the right trapezius muscle was accessed and injected with 3 mL of solution at each area. Patient tolerated procedure without difficulty. There are no complications. Plan and Disposition:: Patient was discharged without incident.
[2023-03-04 12:10] VITALS: BP 166/76; PULSE 54; RESP 20
== END 2023-03-04 12:10 | disposition home or self-care (01) ==
PROVIDERS: PCP Family Medicine; Visit Provider Nurse Anesthetist, Certified Registered
DX: M43.22 Fusion of spine, cervical region; M79.18 Myalgia, other site; M50.30 Other cervical disc degeneration, unspecified cervical region
CPT/HCPCS: 20552; J1040

== ENCOUNTER → 2023-03-06 12:34 | Outpatient (CLI) | payer MEDICARE, SELFPAY ==
--- NOTE | 2023-03-06 | CA_ITS ---
APPROVED REPORT Exam: Pharmacologic Technologist: Suzanna Corona, Ht: 5 ft 7 in Wt: 213 lbs BSA: 2.08 m2 HR: 49 bpm BP: 155/69 mmHg Rhythm: Sinus bradycardia Medical History Medical History: HTN Medications: Levothyroxine,,,,, Ferrous sulfate,,,,, Pantoprazole,,,,, PERCOCET,,,,, TopIRAMATE,,,,, Naproxen,,,,, Vit D3,,,,, ProMETHAZINE,,,,, Venlafaxine,,,,, Potassium,,,,, Pramipexale,,,,, RIvaROXABAN,,,,, Allergies: HYALURONIC ACID Cardiac Risk Factors: HTN Stress Test Details Test: LEXISCAN HR Resting HR: 49 bpm Max Heart Rate (APMHR): 158 bpm Max HR Achieved: 64 bpm Target HR (85% APMHR): 134 bpm % of APMHR: 41 Recovery HR: 56 bpm BP Resting BP: 155/69 mmHg Max BP: 155/69 mmHg Recovery BP: 139.0/67.0 mmHg ECG Resting ECG: MARKED SINUS BRADYCARDIA, PVCS, PAC, RIGHTWARD AXIS, T WAVE ABNS Stress ECG: NO ST CHANGES Arrhythmia: PVCs, PACs Clinical Exercise duration: 04:01 min Highest Stage Achieved: Exercise capacity: 1.0 METs Stress ECG Conclusion PT HAD SOA, NAUSEA, MALAISE NO CP PACs, PVCs NO SIGNIFICANT ST CHANGES UNREMARKABLE LEXISCAN STRESS MYOVIEW IMAGES REPORTED SEPARATELY Test Summary REST 03:52 . . 49 . 155/ 69 . . Stage 1 01:00 . . 59 . . . . Stage 2 01:00 . . 58 . . . . Stage 3 01:00 . . 56 . 144/ 71 . . Stage 4 01:00 . . 55 . 140/ 69 . . Stage 4 01:01 . . 54 . 140/ 69 . Stop exercise at 04:01 RECOVERY 01:00 . . 55 . 142/ 72 . . RECOVERY 02:00 . . 59 . 142/ 72 . . RECOVERY 03:00 . . 56 . 136/ 68 . . RECOVERY 04:00 . . 54 . 139/ 67 . . RECOVERY 04:10 . . 55 . 139/ 67 . . Electronically signed by : Annia Martínez, 03/18/2023 23:57:08
--- NOTE | 2023-03-06 12:34 | NM_ITS ---
APPROVED REPORT Exam: Nuclear Stress Test Indication: HTN, FM HX, SOB, PALPITATIONS Patient Location: Outpatient Stress Tech: Suzanna Corona NM Tech:Emma Saenz AYEPipo RT(R)(N) Ht: 5 ft 7 in Wt: 210 lbs Bra Size: 40D HR: 49 bpm BP: 155/69 mmHg BSA: 2.07 m2 Rhythm: NSR TID: 1.22 BMI: 32.8 History: HTN, FM HX, SOB, PALPITATIONS PT COULD NOT LIE ON STOMACH FOR PRONE IMAGES Procedure: Patient received 0.4 mg of intravenous Lexiscan, resting heart rate 49 bpm, resting blood pressure 155/69 mmHg, with Lexiscan maximum heart rate achieved was 64 bpm which is % of the maximum predicted heart rate and blood pressure was 155/69 mmHg. With Lexiscan, patient denied any complaint of chest pain. Cardiac Stress and Resting SPECT Images: Cardiac Stress and Resting SPECT images were obtained using technetium 99m Myoview 31.0 mCi stress and 10.31 mCi at rest. The patient could not lie on her abdomen. Therefore, prone stress imaging could not be performed. This may affect the diagnostic interpretation of the study findings. Resting and stress imaging in supine position demonstrate a medium sized, moderate, reversible perfusion defect in the basal anterior, anterolateral, as well as in the basal inferior LV wall. There is increased transient ischemic dilatation ratio (TID 1.22), suggestive of possible multivessel disease or balanced ischemia. Gated imaging demonstrates mild reduction in global LV systolic function. There is moderate hypokinesis of the basal anterior and inferior LV garcia. LVEF is calculated at 49%. Conclusion: The patient could not lie on her abdomen. Therefore, prone stress imaging could not be performed. This may affect the diagnostic interpretation of the study findings. Medium sized, moderate, reversible perfusion defect in the basal anterior, anterolateral, as well as in the basal inferior LV wall. Findings are suggestive of reversible ischemia. Increased transient ischemic dilatation ratio (TID 1.22), suggestive of possible multivessel disease or balanced ischemia. Gated imaging demonstrates mild reduction in global LV systolic function. There is moderate hypokinesis of the basal anterior and inferior LV garcia. LVEF is calculated at 49%. Electronically signed by : Annia Martínez, 03/18/2023 23:59:56
== END ==
LOC: RAD 12:34
PROVIDERS: PCP Family Medicine; Visit Provider Physician Assistant
DX: E66.01 Morbid (severe) obesity due to excess calories (principal); F17.200 Nicotine dependence, unspecified, uncomplicated; I10 Essential (primary) hypertension; I48.91 Unspecified atrial fibrillation; R06.00 Dyspnea, unspecified; R94.31 Abnormal electrocardiogram [ECG] [EKG]; Z01.810 Encounter for preprocedural cardiovascular examination; Z68.33 Body mass index [BMI] 33.0-33.9, adult
CPT/HCPCS: 78452; 93017; A9502; J2785

== ENCOUNTER → 2023-03-21 07:51 | Outpatient (CLI) | payer MEDICARE, SELFPAY ==
--- NOTE | 2023-03-21 08:08 | CA_ITS ---
APPROVED REPORT EXAM: Comprehensive 2D, Doppler, and color-flow Echocardiogram Vacuum Conditioner Operator: Gemma West, RCS, RVS Ht: 5 ft 7 in Wt: 213lbs BSA: 2.08 BP: 137/66 mmHg Indications: Hx-Afib, pre-op clearance, SOA, Smoker, HTN, HLD, ABN EKG,Murmur 2D Dimensions Aortic Root 3.38 cm LA Volume 121.90 mL Left Atrium 4.44 cm LA Volume Index 58.388199 mL/m2 (M/F) 16-34 LVOT 2.05 cm (M/F) 1.5-2.5 M-Mode Dimensions RVDd 4.21 cm (0.9-2.6) LA Diam 4.12 cm (1.9-4.0) LVDd 4.33 cm (3.5-5.7) Ao Diam 3.62 cm (2.0-3.7) LVDs 2.85 cm (3.5-5.7) IVSd 1.29 cm (0.6-1.1) PWd 1.02 cm (0.6-1.1) EF (Teich) 63.40% EPSs 0.69 cm FS 34.20% EDV (Teich) 84.40 mL TAPSE 2.98 (<1.7) ESV (Teich) 30.90 mL LV Diastology E Decel Time 193.00 (160-240 msec) E/A Ratio 1.19 MED E' 6.20 (< 7 cm/sec) MED A' 10.20 cm/s E'/MED E' Ratio 15.68 (>14) LAT E' 12.50 (<10 cm/sec) LAT A' 10.70 cm/s E/LAT E' Ratio 7.78 (>14) Aortic Valve LVOT Max 106.00 (70-110 cm/s) LVOT VTI 23.78 cm AoV Peak Connor. 163.00 (50-130 cm/s) AO Peak GR. 10.60 mmHg AO Mean GR. 5.20 (<5 mmHg) AO VTI 38.13 (18-25 cm) JUAN (VTI) 2.06 (2.5-4.5 cm2) Mitral Valve MV A Velocity 82.00 (40-130 cm/s) E/A Ratio 1.19 MV Decel. Time 193.00 (160-240 ms) Pulmonary Valve PV Peak Velocity 82.00 (50-150 cm/s) TN End VMAX 178.00 cm/s Tricuspid Valve TR P. Velocity 304.00 cm/s RAP Estimate 10.00 mmHg RVSP 47.10 mmHg Left Ventricle The left ventricle is normal size. The left ventricular systolic function is normal. The left ventricular ejection fraction is within the normal range. There is normal left ventricular wall thickness. There is normal LV segmental wall motion. The left ventricular diastolic function is indeterminate. LVEF is 55%. Right Ventricle Right ventricle is mildly dilated. The right ventricular systolic function is normal. Atria The left atrium size is normal. The right atrium size is normal. There is no Doppler evidence of interatrial shunt. Aortic Valve The aortic valve is mildly thickened. The aortic valve opens well. There is no aortic valvular stenosis. Trace aortic regurgitation. Mitral Valve The mitral valve is normal in structure. No evidence of mitral valve stenosis. Mild mitral regurgitation. Tricuspid Valve The tricuspid valve leaflets are thin and pliable. Mild to moderate tricuspid regurgitation. RVSP is 30-35 mmHg. Pulmonic Valve The pulmonary valve is normal in structure. Trace pulmonic regurgitation. Great Vessels The aortic root is normal in size. The ascending aorta is normal in size. IVC is normal in size and collapses >50% with inspiration. Pericardium There is no pericardial effusion. Other Information Study Quality: Fair Conclusion Normal biventricular systolic function. Mild RV dilation. Mild MR. Mild to moderate TR. Elevated RVSP 30-35 mmHg. Electronically signed by : Annia Martínez MD 03/23/2023 15:47:15
== END ==
LOC: RT 07:52
PROVIDERS: PCP Family Medicine; Visit Provider Physician Assistant
DX: E66.01 Morbid (severe) obesity due to excess calories (principal); F17.200 Nicotine dependence, unspecified, uncomplicated; I10 Essential (primary) hypertension; I48.0 Paroxysmal atrial fibrillation; R06.00 Dyspnea, unspecified; R94.31 Abnormal electrocardiogram [ECG] [EKG]; Z01.810 Encounter for preprocedural cardiovascular examination; Z68.33 Body mass index [BMI] 33.0-33.9, adult
CPT/HCPCS: 93306

== ENCOUNTER → 2023-04-21 13:49 | Outpatient (POV) | payer MEDICARE, SELFPAY ==
--- OUTSIDE RECORDS SUMMARY | 2023-04-21 13:51 | XMS_ITS | Encounter Summary ---
Author Name Unknown Organization [facility] Address [address] [place] [address] Encounter Details Date Type Department Care Team Description ASSESSMENT No Information TREATMENT PLAN No Information
--- OUTSIDE RECORDS SUMMARY | 2023-04-21 13:51 | XMS_ITS | Encounter Summary ---
Author Name Unknown Organization [facility] Address [address] [place] [address] Encounter Details Date Type Department Care Team Description ASSESSMENT No Information TREATMENT PLAN No Information
--- OUTSIDE RECORDS SUMMARY | 2023-04-21 13:51 | XMS_ITS | Encounter Summary ---
Author Name Unknown Organization [facility] Address [address] [place] [address] Encounter Details Date Type Department Care Team Description ASSESSMENT No Information TREATMENT PLAN No Information
--- OUTSIDE RECORDS SUMMARY | 2023-04-21 13:51 | XMS_ITS | Encounter Summary ---
Author Name Unknown Organization [facility] Address [address] [place] [address] Encounter Details Date Type Department Care Team Description ASSESSMENT No Information TREATMENT PLAN No Information
--- OUTSIDE RECORDS SUMMARY | 2023-04-21 13:51 | XMS_ITS | Encounter Summary ---
Author Name Unknown Organization [facility] Address [address] [place] [address] Encounter Details Date Type Department Care Team Description ASSESSMENT No Information TREATMENT PLAN No Information
--- OUTSIDE RECORDS SUMMARY | 2023-04-21 13:51 | XMS_ITS | Encounter Summary ---
Author Name Unknown Organization [facility] Address [address] [place] [address] Encounter Details Date Type Department Care Team Description ASSESSMENT No Information TREATMENT PLAN No Information
--- OUTSIDE RECORDS SUMMARY | 2023-04-21 13:52 | XMS_ITS | Summary of Care ---
Author Name Unknown Organization [facility] Address [address] [place] [address]- Care Team Providers Care Machine Technician Name Role Phone Ulises Judd Primary Care Physician Unavailab le Encounter 09/04/22 - 09/16/22 [facility] [address] [place] [address] Encounter Diagnosis spondylolisthesis at C3-C4 s/p C2-T2 PCF(Discharge Diagnosis) - 09/04/22 Discharge Disposition: Discharged to Home or Self Care Attending Physician: Elida Connolly DO Admitting Physician: Elida Connolly DO Allergies, Adverse Reactions, Alerts Substance Reaction Severity Status gabapentin Hallucinations Active hyaluronate preparations 1 Anaphylaxis A ctive 1anaphylaxis Assessment and Plan Extracted from: Title: PM&R Discharge Summary Author:Kalyn Busch Date:09/16/22 Patient: MICHAELLE LEONARD Age: 61 years Sex: Female : 1960 Associated Diagnoses: None Author: Kalyn Ventura Date of Admission: 09/04/22 Date of Discharge: 09/16/22 Admission Diagnosis: spondylolisthesis at C3-C4 s/p C2-T2 PCF spondylolisthesis at C3-C4 s/p C2-T2 PCF resulting in functional decline Service Attending: Elida Andrews D.O. Discharge Attending: Elida Andrews D.O. Service Resident: Kalyn Real D.O. Admission HPI: 61-year-old female with PMH significant for chronic neck and back pain, osteoporosis, hypothyroidism, GERD, nasopharyngeal mass, REFUGIO, A-fib on Xarelto, HTN who was admitted to [facility] on 08/23/2022 for concerning MRI. Patient was seen by an outside provider for worsening right shoulder and neck pain, along with numbness in the hands. MRI of the cervical spine was ordered which showed anterior listhesis and severe stenosis at C3-4, at that time patient was advised to go to the emergency department for immediate evaluation. She was seen by neurosurgery and diagnosed with progressive cervical spondylitic lytic myelopathy and high-grade spondylolisthesis at C3-4 with significant endplate erosion, facet joint erosion, spinal cord compression. Parents working she was t
--- OUTSIDE RECORDS SUMMARY | 2023-04-21 13:52 | XMS_ITS | Continuity of Care Document ---
Author Name Unknown Organization [facility] al Address [address] [place] [address]- Care Team Providers Care Ultrasound Manager Name Role Phone NOFAMILY, PROVIDER Primary Care Physician Tato cabrera Encounter [facility] [id number] Date(s): 04/21/20 - 04/21/[address] [address]- [place] Encounter Diagnosis Traumatic ecchymosis of groin(Discharge Diagnosis) - 04/21/20 Discharge Disposition: Home or Self Care Attending Physician: Kye Jeter MD Admitting Physician: Kye Jeter MD Referring Physician: Kye Jeter MD Allergies, Adverse Reactions, Alerts Substance Reaction Severity Status gabapentin Active Supartz Active Assessment and Plan Extracted from: Title:Addendum *ED Author:Jacque Nelson Date: Impression and Plan Diagnosis Traumatic ecchymosis of groin ([id number] S30.1XXA, Discharge, Medical) Plan Condition: Stable. Disposition: Discharged: Time 04/21/2020 19:53:00, to home. Patient was given the following educational materials: Contusion, Jluk-gl-Toin, Contusion, [id number]. Follow up with: PROVIDER NOFAMILY Within As needed; bruise will resolve slowly. return any concern. f/u pcp for abnormal liver function tests. Within As needed, Return to Emergency Department, Primary Care Physician, In: as needed. Counseled: Patient, Family, Regarding diagnostic results, Regarding treatment plan, Regarding prescription, Patient indicated understanding of instructions. Extracted from: Title:ED Physician Note Author:Kye Jeter Date:04/21/20 Assessment/Plan Ordered: CBC with Auto Diff 6, Blood, Stat collect, 04/21/20 17:57:00 EDT, Once, Stop date 04/21/20 17:58:00 EDT, Lab Collect Comprehensive Metabolic Panel 9, Blood, Stat collect, 04/21/20 17:57:00 EDT, Stop date 04/21/20 17:58:00 EDT, Lab Collect CT Abdomen +Pelvis w/ Cont, 04/21/20 17:57:00 EDT, Stat, 04/21/20 17:57:00 EDT, pain, Transport Mode: Cart, Rad Type Follow Up No qualifying data available Functional Status 04/21/20 Recent Travel History No recent t
--- OUTSIDE RECORDS SUMMARY | 2023-04-21 13:52 | XMS_ITS | Continuity of Care Document ---
Author Name Unknown Organization [facility] al Address [address] [place] [address]- Care Team Providers Care Early Childhood Coordinator Name Role Phone NOFAMILY, PROVIDER Primary Care Physician Tato cabrera Encounter [facility] [id number] Date(s): 04/21/20 - 04/21/[address] [address]- [place] Encounter Diagnosis Traumatic ecchymosis of groin(Discharge Diagnosis) - 04/21/20 Discharge Disposition: Home or Self Care Attending Physician: Kye Jeter MD Admitting Physician: Kye Jeter MD Referring Physician: Kye Jetre MD Allergies, Adverse Reactions, Alerts Substance Reaction Severity Status gabapentin Active Supartz Active Assessment and Plan Extracted from: Title:Addendum *ED Author:Jacque Nelson Date: Impression and Plan Diagnosis Traumatic ecchymosis of groin ([id number] S30.1XXA, Discharge, Medical) Plan Condition: Stable. Disposition: Discharged: Time 04/21/2020 19:53:00, to home. Patient was given the following educational materials: Contusion, Mvqp-[id number]-[id number], Contusion, Gnnq-gb-Kagc. Follow up with: PROVIDER NOFAMILY Within As [...]
--- NOTE | 2023-04-21 14:12 | A.OFFVIS_ITS ---
[facility] Pain Management SOAP Note Subjective:: Patient is a very pleasant 62-year-old female comes our clinic today for medication refill. We are currently managing the patient with [place] 7.5 mg 1 p.o. 4 times daily patient reports medication helps with her overall pain symptoms. She does not report any side effects from the medication. Patient also takes Lyrica 75 mg 1 p.o. twice daily and diazepam 2 mg 1 p.o. twice daily from her PCP. We have been managing the patient chronically for degenerative disc disease cervical spine. Degenerative disc disease lumbar spine. Cervical lumbar radiculopathy. Bilateral sacroiliitis. Osteoarthritis bilateral knee. Chronic right foot pain. Chronic right shoulder pain. Myofascial pain. Chronic pain syndrome. She rates her pain today 10/07. Patient's main complaint is right shoulder pain due to rotator cuff tear. However, orthopedic surgery does not recommend surgery at this time. Low back pain she describes as constant, dull, aching. Also bilateral hip and leg radicular symptoms at times. Patient is status post trigger point injections of the right trapezius muscle on 03/04/2026. She reports significant improvement in the right posterior cervical spine as well as right trapezius muscle. Patient's Tavo #[id number] has been reviewed and appropriate. Objective:: Patient is awake alert [place] x3. In no acute distress. Flexion-extension lumbar spine somewhat guarded secondary to pain. Deep tendon reflexes upper and lower extremities normal. Motor strength upper and lower extremities normal. There is no gross sensory deficit. Gait is normal. Assessment:: Degenerative disc lumbar spine multilevels. Lumbar radiculopathy. Degenerative disc cervical spine multiple levels. Cervical radiculopathy. Right shoulder pain. Bilateral knee pain. Right foot pain. Myofascial pain. Chronic pain syndrome. Plan:: I will refill the patient's pain medication. Austin 7.5 mg 1 p.o. 4 times daily. Patient return to see us in 1 month. UDS is pending. [facility] Disclaimer: The information contained in this section may have been updated after the patient was seen, as this information can be updated by other users. Medical History (Updated 03/26/23 @ 09:33 by Ghanshyam Clark RN) Abnormal electrocardiography Abnormal stress test Dyspnea Family History Other No significant family history Social History Smoking Status: Never smoker second hand exposure: No alcohol intake: never substance use type: denies use current occupational status: retired Travel in the last 8 weeks: None household members: spouse housing: house current occupational exposures/hazards: No caffeine: Yes
[2023-04-21 15:10] VITALS: BP 151/77; PULSE 54; RESP 18; O2SAT 99; BMI 33.6
[2023-04-21 15:14] LABS: Amphetamine/Metha Screen,Urine Negative ng/ml (<1000)
[2023-04-21 15:15] LABS: Barbiturates Screen,Urine Negative ng/ml (<200); Benzodiazepines Screen,Urine Negative ng/ml (<200)
[2023-04-21 15:16] LABS: Cannabinoid Screen,Urine Negative ng/ml (<50)
[2023-04-21 15:17] LABS: Cocaine Screen,Urine Negative ng/ml (<300); Methadone Screen,Urine Negative ng/ml (<300)
[2023-04-21 15:18] LABS: Opiate Screen,Urine Positive ng/ml (<300); Phencyclidine Screen,Urine Negative ng/ml (<25)
[2023-04-27 08:24] LABS: Codeine Negative (Cutoff=100); Hydrocodone Positive (.); Hydromorphone Negative (Cutoff=100); Morphine Negative (Cutoff=100); Opiates Positive (.)
== END | disposition home or self-care (01) ==
PROVIDERS: Nurse Practitioner Family; PCP Family Medicine; Visit Provider Nurse Anesthetist, Certified Registered
DX: Z79.891 Long term (current) use of opiate analgesic (principal); M51.16 Intervertebral disc disorders with radiculopathy, lumbar region; M50.10 Cervical disc disorder with radiculopathy, unspecified cervical region; M25.511 Pain in right shoulder; M25.561 Pain in right knee; M25.562 Pain in left knee; M79.671 Pain in right foot; M79.10 Myalgia, unspecified site; G89.4 Chronic pain syndrome
CPT/HCPCS: 80305; 80307; 80361; 80365; 99212; G0463; G0480

== ENCOUNTER 2023-05-07 08:12 | Day surgery (SDC) | payer MEDICARE, SELFPAY ==
[2023-05-07] VITALS (13 sets, daily range): BP systolic 115–160; BP diastolic 67–86; PULSE 51–62; RESP 17–18; O2SAT 94–99; BMI 36.6
--- NOTE | 2023-05-07 07:18 | IR_ITS ---
APPROVED REPORT Patient Location: Outpatient PROCEDURES Left heart catheterization Left ventriculogram Selective coronary angiogram INDICATION Abnormal Myoview, Angina pectoris Informed consent was obtained prior to the procedure. COMPLICATIONS None Estimated Blood Loss: Less than10 mls TECHNIQUE One percent lidocaine used to anesthetize the right anterior aspect of the wrist. The right radial artery was accessed via the Seldinger technique. A 6 Croatian sheath was placed in the right radial artery. 2.5 mg of Verapamil, 800 mcg of nitroglycerin, 1mg Lidocaine and 5000 U Heparin were given through the arterial sheath. The papa catheter was also used to perform left heart catheterization, left ventriculogram and selective coronary angiogram. At the end of the procedure the sheath was removed good hemostasis was achieved using Traclet band, patient was transferred to the postop holding area in stable condition. ANGIOGRAPHIC RESULTS The left main artery Normal The left anterior descending artery Normal The circumflex artery Normal The right coronary artery Dominant normal The KEE ventriculogram reveals Preserved 50% The left ventricular end-diastolic pressure 15 mmHg IMPRESSION Normal coronaries Preserved ejection fraction Normal LVEDP PLAN 1. Continue medical management Electronically signed by : Yonatan Euceda MD 05/07/2023 10:40:14
[2023-05-07 08:51] LABS: Basophils % 0.7 % (0.1-2.0); Eosinophils # 0.4 K/mm3 (0.0-0.4); Eosinophils % 9.5 % (0.1-12.0); Hematocrit 41.6 % (37.0-47.0); Hemoglobin 14.1 g/dL (12.2-16.2); Lymphocytes # 1.1 K/mm3 (0.7-4.5); Lymphocytes % 28.6 % (10-50); Mean Corpuscular HGB Conc 33.9 g/dL (31.8-35.4); Mean Corpuscular Hemoglobin 32.8 pg (27.0-31.2); Mean Platelet Volume 8.5 fl (7.4-10.4); Monocytes # 0.2 K/mm3 (0.1-1.0); Monocytes % 5.1 % (1.7-9.3); Neutrophils # 2.1 K/mm3 (1.8-7.8); Neutrophils % 56.1 % (37.0-80.0); Platelet Count 204 K/mm3 (142-424); Red Blood Count 4.29 M/mm3 (4.20-5.40); Red Cell Distribution Width 13.3 % (11.5-17.5); White Blood Count 3.7 K/mm3 (4.8-10.8)
[2023-05-07 08:55] LABS: Chloride 103 mmol/L (98-107); Potassium 3.6 mmoL/L (3.5-5.1); Sodium 140 mmol/L (136-145)
[2023-05-07 08:58] LABS: Anion Gap 11.6 mEq/L (5-15); Blood Urea Nitrogen 18 mg/dl (7-17); Carbon Dioxide 29 mmol/L (22.0-30.0); Creatinine Clearance Estimated 89 mL/min (50-200); Estimated Glomerular Filt Rate 56 ml/min (>60); GFR (African American) 68 ML/MIN (>60)
[2023-05-07 08:59] LABS: Glucose 104 mg/dl (74-100)
== END 2023-05-07 14:00 | disposition home or self-care (01) ==
PROVIDERS: PCP Family Medicine; Visit Provider Internal Medicine
DX: E66.01 Morbid (severe) obesity due to excess calories (principal); I10 Essential (primary) hypertension; I48.0 Paroxysmal atrial fibrillation; R06.00 Dyspnea, unspecified; R94.31 Abnormal electrocardiogram [ECG] [EKG]; R94.39 Abnormal result of other cardiovascular function study; I20.89 Other forms of angina pectoris; Z68.36 Body mass index [BMI] 36.0-36.9, adult; Z79.899 Other long term (current) drug therapy; Z79.01 Long term (current) use of anticoagulants
CPT/HCPCS: 80048; 85025; 93458; 99152; C1725; C1769; J1644; Q9967

== ENCOUNTER → 2023-05-21 13:49 | Outpatient (POV) | payer MEDICARE, SELFPAY ==
--- NOTE | 2023-05-21 14:16 | EXP.PAIN.SOA ---
[facility] Pain Management SOAP Note Subjective:: Patient is a pleasant 62-year-old female who presents today for 1 month follow-up and medication refill. We are currently treating the patient for degenerative disc disease of cervical and lumbar spine with cervical and lumbar radiculopathy symptoms, chronic pain syndrome, right shoulder pain, bilateral knee pain, right foot pain, myofascial pain. Today she rates her pain a 6 out of 10. Patient denies any new injury or trauma. She does state since our last visit she has gained approximately 30 pounds in fluid. Patient states she is already on a daily fluid pill however it does not seem to be making a difference. Patient does state that she has been to see her food service specialist and had a cardiac cath who stated everything appeared to be doing well. Patient has not followed up with her primary care provider. Patient is currently managed with [place] 7.5 mg 4 times a day. Patient denies any side effects from this medication. She is also prescribed pregabalin 75 mg twice a day from outside provider. Her Tavo has been reviewed and is appropriate. Review of Systems: General: No recent weight changes, no fever, no sleep disturbances Respiratory: No cough, no shortness of air, no recurring pulmonary infections Cardiovascular/peripheral vascular: No chest pain, no palpitations, no edema, no shortness of breath Gastrointestinal: No new onset incontinence, normal bowel movements reported Genitourinary: No new onset incontinence Musculoskeletal: Low back pain, leg pain Psychiatric: [Normal mood/affect] Neurological: [Denies weakness in extremities], [denies balance issues] Objective:: Physical Exam: General: Alert and oriented x3, no acute distress, pleasant and cooperative Lungs: Respirations even and unlabored, symmetrical chest expansion Eyes: PERRL Musculoskeletal: Flexion and extension of lumbar [spine] somewhat guarded secondary to pain, [antalgic gait noted] Neurological: Speech clear, no gross sensory deficit Assessment:: Degenerative disc disease of cervical and lumbar spine with cervical and lumbar radiculopathy symptoms, chronic pain syndrome, right shoulder pain, bilateral knee pain, right foot pain, myofascial pain Plan:: I have counseled the patient to contact her primary care provider to discuss a 30 pound fluid accumulation over the last month. I have recommended updated lab work and possible other testing to determine the cause. I will refill the patient's [place] 7.5 mg 4 times a day and provide a 1 month supply of this medication. Patient will return to clinic in 1 month for reevaluation of symptoms and plan of care. Patient has been advised of risks of oversedation with the prescribed medication. Narcan has been offered to the patient in the event of oversedation. Patient has been advised that a family member should also be educated regarding administration of Narcan. Patient has been instructed to contact the clinic with any concerns before the next appointment. Dr. Barnett has reviewed this note and agrees with this plan of care. This note was dictated using voice recognition software and make contain errors or omissions. [facility] Disclaimer: The information contained in this section may have been updated after the patient was seen, as this information can be updated by other users. Medical History Abnormal electrocardiography Abnormal stress test Dyspnea Family History Other No significant family history Social History Smoking Status: Never smoker second hand exposure: No alcohol intake: never substance use type: denies use current occupational status: retired Travel in the last 8 weeks: None household members: spouse housing: house current occupational exposures/hazards: No caffeine: Yes
[2023-05-21 14:47] VITALS: BP 133/55; PULSE 54; RESP 18; O2SAT 98; BMI 35.0
== END | disposition home or self-care (01) ==
PROVIDERS: PCP Family Medicine; Visit Provider Nurse Practitioner Family
DX: M50.10 Cervical disc disorder with radiculopathy, unspecified cervical region (principal); M51.16 Intervertebral disc disorders with radiculopathy, lumbar region; G89.4 Chronic pain syndrome; M25.511 Pain in right shoulder; M25.561 Pain in right knee; M25.562 Pain in left knee; M79.671 Pain in right foot; M79.10 Myalgia, unspecified site
CPT/HCPCS: 99212; G0463

== ENCOUNTER → 2023-06-16 11:21 | Outpatient (POV) | payer MEDICARE, SELFPAY ==
--- NOTE | 2023-06-16 11:48 | EXP.PAIN.SOA ---
[facility] Pain Management SOAP Note Subjective:: Patient is a pleasant 62-year-old female who presents today for 1 month follow-up and medication refill. We are currently treating the patient for degenerative disc disease of cervical and lumbar spine with cervical and lumbar radiculopathy symptoms, chronic pain syndrome, right shoulder pain, bilateral knee pain, right foot pain, myofascial pain. Today she rates her pain a 5 out of 10. Patient denies any new trauma or injury. Patient states that she has been sleeping quite a bit since our last visit. Patient states that she typically will sleep 20 hours a day. She states she feels groggy all the time and is unrelated to her medication. Patient states that during the last months she has not taken the medication as much to see whether or not if it made any difference however she denies any changes. She states she has not been to see her primary care doctor. She is currently managed with [place] 7.5 mg 4 times a day from our office and pregabalin 75 mg twice a day from her PCP. Patient denies any side effects from this medication. She does state that she is scheduled to see her orthopedic surgeon for her shoulder issues coming up this next week. Her Tavo has been reviewed and is appropriate. Review of Systems: General: No recent weight changes, no fever, no sleep disturbances Respiratory: No cough, no shortness of air, no recurring pulmonary infections Cardiovascular/peripheral vascular: No chest pain, no palpitations, no edema, no shortness of breath Gastrointestinal: No new onset incontinence, normal bowel movements reported Genitourinary: No new onset incontinence Musculoskeletal: Low back pain, shoulder pain, increased fatigue Psychiatric: [Normal mood/affect] Neurological: [Denies weakness in extremities], [denies balance issues] Objective:: Physical Exam: General: Alert and oriented x3, no acute distress, pleasant and cooperative Lungs: Respirations even and unlabored, symmetrical chest expansion Eyes: PERRL Musculoskeletal: Flexion and extension of lumbar [spine] somewhat guarded secondary to pain, [antalgic gait noted] Neurological: Speech clear, no gross sensory deficit Assessment:: Degenerative disc disease of cervical and lumbar spine with cervical and lumbar radiculopathy symptoms, chronic pain syndrome, right shoulder pain, bilateral knee pain, right foot pain, myofascial pain Plan:: Patient continues to have significant pain in her low back and shoulder with limited range of motion. I have discussed with the patient due to her increased fatigue and grogginess that she may benefit from updated lab work. Patient denies having any recent labs drawn. I will order the patient a CBC, CMP, iron panel, thyroid panel and B12. I have discussed with the patient that I highly recommend she make a follow-up appointment with her primary care provider to discuss the increased fatigue. I will send in her [place] 7.5 mg 4 times a day and provide a 1 month supply of this medication. Patient will return to clinic in 2 weeks for reevaluation of symptoms and lab follow-up. Patient has been advised of risks of oversedation with the prescribed medication. Narcan has been offered to the patient in the event of oversedation. Patient has been advised that a family member should also be educated regarding administration of Narcan. Patient has been instructed to contact the clinic with any concerns before the next appointment. Dr. Barnett has reviewed this note and agrees with this plan of care. This note was dictated using voice recognition software and make contain errors or omissions. [facility] Disclaimer: The information contained in this section may have been updated after the patient was seen, as this information can be updated by other users. Medical History Abnormal electrocardiography Abnormal stress test Dyspnea Family History (Reviewed 05/14/23 @ 14:3
[2023-06-16 11:56] VITALS: BP 154/91; PULSE 61; RESP 17; O2SAT 95; BMI 34.9
== END | disposition home or self-care (01) ==
PROVIDERS: PCP Family Medicine; Visit Provider Nurse Practitioner Family
DX: M50.10 Cervical disc disorder with radiculopathy, unspecified cervical region (principal); M51.16 Intervertebral disc disorders with radiculopathy, lumbar region; G89.4 Chronic pain syndrome; M25.511 Pain in right shoulder; M25.561 Pain in right knee; M25.562 Pain in left knee; M79.671 Pain in right foot; M79.10 Myalgia, unspecified site
CPT/HCPCS: 99212; G0463

== ENCOUNTER → 2023-07-04 08:52 | Outpatient (POV) | payer MEDICARE, SELFPAY ==
[2023-07-04 09:44] VITALS: BP 166/88; PULSE 62; RESP 18; O2SAT 96; BMI 34.9
--- NOTE | 2023-07-04 13:56 | EXP.PAIN.SOA ---
[facility] Pain Management SOAP Note Subjective:: Patient is a pleasant 62-year-old female who presents today for medication refill and follow-up. We are currently treating the patient for degenerative disc disease of cervical and lumbar spine with cervical and lumbar radiculopathy symptoms, chronic pain syndrome, right shoulder pain, bilateral knee pain, right foot pain, myofascial pain. Today she rates her pain a 9 out of 10. Patient denies any new trauma or injury. She states today that she continues to have chronic fatigue and increased drowsiness. Patient states that the last visit the blood work that I ordered she is not completed yet due to getting tied up with the holidays. Patient does state that she is planning on getting the blood work done today along with her urine drug screen after leaving our office. Patient is currently managed Irons[place] 7.5 mg 4 times a day from our office and pregabalin 75 mg twice a day from her neurosurgeon out of [place]. Patient does present today emotional and states that she has been dealing with a kidney infection. Patient states that she had saw her primary care provider who did do a UA and was treating her but also sent out a culture to determine sensitivity. Patient just states with that and everything else she has had a lot going on. Patient denies any side effects from her pain medication. She is requesting a refill at today's visit. Her Tavo has been reviewed and is appropriate. Review of Systems: General: No recent weight changes, no fever, no sleep disturbances Respiratory: No cough, no shortness of air, no recurring pulmonary infections Cardiovascular/peripheral vascular: No chest pain, no palpitations, no edema, no shortness of breath Gastrointestinal: No new onset incontinence, normal bowel movements reported Genitourinary: No new onset incontinence Musculoskeletal: Low back pain Psychiatric: [Normal mood/affect] Neurological: [Denies weakness in extremities], [denies balance issues] Objective:: Physical Exam: General: Alert and oriented x3, no acute distress, pleasant and cooperative Lungs: Respirations even and unlabored, symmetrical chest expansion Eyes: PERRL Musculoskeletal: Flexion and extension of lumbar [spine] somewhat guarded secondary to pain, [antalgic gait noted] Neurological: Speech clear, no gross sensory deficit Assessment:: Degenerative disc disease of cervical and lumbar spine with cervical and lumbar radiculopathy symptoms, chronic pain syndrome, right shoulder pain, bilateral knee pain, right foot pain, myofascial pain Plan:: Patient continues to experience significant drowsiness and fatigue with chronic low back pain. I have discussed with the patient to continue to discuss with her primary care provider regarding the increased drowsiness. Patient does state that she is going to lab immediately from our visits to have the lab work ordered of a CBC, CMP, iron panel, thyroid panel and B12 along with her urine drug screen. I will refill the patient's [place] 7.5 mg 4 times a day and provide a 1 month supply of this medication. Patient will return to clinic in 1 month for reevaluation of symptoms and plan of care. Patient has been advised of risks of oversedation with the prescribed medication. Narcan has been offered to the patient in the event of oversedation. Patient has been advised that a family member should also be educated regarding administration of Narcan. Patient has been instructed to contact the clinic with any concerns before the next appointment. Dr. Barnett has reviewed this note and agrees with this plan of care. This note was dictated using voice recognition software and make contain errors or omissions. Update: Patient did not present to the lab for her urine drug screen or blood work. At this time we will hold off sending in her prescription medication. Patient in the past has had inappropriate drug screens in October and December and out of precaution we will contact the patient and let her know that we will need a urine drug screen before the prescription is sent as a precaution. [facility] Disclaimer: The information contained in this section may have been updated after the patient was seen, as this information can be updated by other users. Medical History Abnormal electrocardiography Abnormal stress test Dyspnea Family History Other No significant family history Social History Smoking Status: Never smoker second hand exposure: No alcohol intake: never substance use type: denies use current occupational status: retired Travel in the last 8 weeks: None household members: spouse housing: house current occupational exposures/hazards: No caffeine: Yes
== END | disposition home or self-care (01) ==
PROVIDERS: PCP Family Medicine; Visit Provider Nurse Practitioner Family
DX: M50.10 Cervical disc disorder with radiculopathy, unspecified cervical region (principal); M51.16 Intervertebral disc disorders with radiculopathy, lumbar region; G89.4 Chronic pain syndrome; M25.511 Pain in right shoulder; M25.562 Pain in left knee; M25.561 Pain in right knee; M79.671 Pain in right foot; M79.10 Myalgia, unspecified site
CPT/HCPCS: 99212; G0463

== ENCOUNTER 2023-07-07 12:02 | Outpatient (CLI) | payer MEDICARE, SELFPAY ==
[2023-07-11 13:35] LABS: Acetone <0.010 g/dL (0.000-0.010); Butalbital <1 ug/mL (1-10); Chlordiazepoxide <0.1 ug/mL (0.1-0.9); Diazepam <0.1 ug/mL (0.1-0.9); Ethanol <0.010 g/dL (0.000-0.010); Isopropanol <0.010 g/dL (0.000-0.010); Pentobarbital <1 ug/mL (1-5)
[2023-07-14 09:30] LABS: Oxycodone Cofirmation WB Negative (.); Oxymorphone GS/MS Negative (.)
== END 2023-07-07 23:59 ==
LOC: LAB 12:03
PROVIDERS: PCP Family Medicine; Visit Provider Nurse Practitioner Family
DX: Z79.891 Long term (current) use of opiate analgesic (principal)
CPT/HCPCS: 80306; 80307

== ENCOUNTER → 2023-08-01 13:13 | Outpatient (POV) | payer MEDICARE, SELFPAY ==
[2023-08-01 13:28] VITALS: BP 149/68; PULSE 56; RESP 18; O2SAT 97; BMI 36.0
--- NOTE | 2023-08-01 13:45 | EXP.PAIN.SOA ---
[facility] Pain Management SOAP Note Subjective:: This patient is a pleasant 62-year-old female comes our clinic today for medication refills and follow-up. We are currently treating the patient for degenerative disc lumbar spine multilevels. Lumbar radiculopathy. Degenerative disc cervical spine multilevels. Cervical radiculopathy. Chronic right shoulder pain. Bilateral knee pain. Myofascial pain. She rates her pain 6/10 today. We currently manage the patient with [place] 7.5 mg 1 p.o. 4 times daily. Patient also takes Lyrica 75 mg 1 p.o. twice daily from her PCP. Patient reports the medication does help with her overall pain symptoms and allows her to continue with active daily living. She does not report any side effects. Her Tavo has been reviewed and appropriate. Objective:: Patient is awake alert [place] x 3. In no acute distress. Flexion-extension cervical lumbar spine somewhat guarded secondary to pain. Deep tendon reflexes upper and lower extremities normal. Motor strength upper and lower extremities normal. There is no gross sensory deficit. Gait is normal. Assessment:: Degenerative disc lumbar spine multilevels. Lumbar radiculopathy. Degenerative disc cervical spine cervical radiculopathy. Chronic right shoulder pain. DJD right shoulder. Plan:: Patient reports she is having right shoulder surgery in [place] within the next few weeks. I will refill her pain medication [place] 7.5 mg 1 p.o. 4 times daily. She will return to see us in a month. [facility] Disclaimer: The information contained in this section may have been updated after the patient was seen, as this information can be updated by other users. Medical History Abnormal electrocardiography Abnormal stress test Dyspnea Family History Other No significant family history Social History Smoking Status: Never smoker second hand exposure: No alcohol intake: never substance use type: denies use current occupational status: retired Travel in the last 8 weeks: None household members: spouse housing: house current occupational exposures/hazards: No caffeine: Yes
== END | disposition home or self-care (01) ==
PROVIDERS: PCP Family Medicine; Visit Provider Nurse Anesthetist, Certified Registered
DX: M51.16 Intervertebral disc disorders with radiculopathy, lumbar region (principal); M50.10 Cervical disc disorder with radiculopathy, unspecified cervical region; M19.011 Primary osteoarthritis, right shoulder; M25.511 Pain in right shoulder; G89.29 Other chronic pain
CPT/HCPCS: 99212; G0463

== ENCOUNTER 2023-08-01 14:30 | Outpatient (CLI) | payer MEDICARE, SELFPAY ==
[2023-08-01 15:15] LABS: Basophils % 0.6 % (0.1-2.0); Eosinophils # 0.3 K/mm3 (0.0-0.4); Eosinophils % 6.8 % (0.1-12.0); Hematocrit 38.5 % (37.0-47.0); Hemoglobin 12.9 g/dL (12.2-16.2); Lymphocytes % 22.6 % (10-50); Mean Corpuscular HGB Conc 33.3 g/dL (31.8-35.4); Mean Corpuscular Hemoglobin 32.7 pg (27.0-31.2); Mean Platelet Volume 9.1 fl (7.4-10.4); Monocytes # 0.2 K/mm3 (0.1-1.0); Monocytes % 5.2 % (1.7-9.3); Neutrophils # 2.9 K/mm3 (1.8-7.8); Neutrophils % 64.8 % (37.0-80.0); Platelet Count 197 K/mm3 (142-424); Red Blood Count 3.93 M/mm3 (4.20-5.40); Red Cell Distribution Width 13.1 % (11.5-17.5); White Blood Count 4.5 K/mm3 (4.8-10.8)
[2023-08-01 15:29] LABS: Alanine Aminotransferase 39 U/L (12-78); Albumin Level 3.9 g/dl (3.5-5.0); Albumin/Globulin Ratio 1.6 (1.1-1.8); Alkaline Phosphatase 87 U/L (38-126); Anion Gap 9.8 mEq/L (5-15); Aspartate Amino Transferase 41 U/L (14-36); Bilirubin,Total 0.3 mg/dl (0.2-1.3); Blood Urea Nitrogen 17 mg/dl (7-17); Calcium 8.7 mg/dl (8.4-10.2); Carbon Dioxide 30 mmol/L (22.0-30.0); Chloride 105 mmol/L (98-107); Estimated Glomerular Filt Rate 63 ml/min (>60); GFR (African American) 77 ML/MIN (>60); Globulin 2.4 g/dL (1.3-3.2); Glucose 127 mg/dl (74-100); Potassium 3.8 mmoL/L (3.5-5.1); Sodium 141 mmol/L (136-145); Total Protein,Serum 6.3 g/dl (6.3-8.2)
[2023-08-01 15:38] LABS: Iron 82 ug/dL (37-170)
[2023-08-01 15:48] LABS: Total Iron Binding Capacity 272 ug/dL (265-497)
[2023-08-01 15:50] LABS: T4 (Thyroxine) 5.6 ug/dl (5.53-11.0); Triiodothryronine (T3) Uptake 35 % (23.5-40.5)
[2023-08-01 16:18] LABS: Vitamin B12 709 pg/mL (239-931)
== END 2023-08-01 23:59 ==
LOC: LAB 14:31
PROVIDERS: Nurse Practitioner Family; PCP Family Medicine; Visit Provider Nurse Anesthetist, Certified Registered
DX: Z79.899 Other long term (current) drug therapy; E03.9 Hypothyroidism, unspecified; I10 Essential (primary) hypertension; R40.0 Somnolence; R73.9 Hyperglycemia, unspecified; D64.9 Anemia, unspecified
CPT/HCPCS: 36415; 80053; 82607; 83540; 83550; 84436; 84443; 84479; 85025; 99212; G0463

== ENCOUNTER 2023-09-03 14:43 | Outpatient (POV) | payer MEDICARE, SELFPAY ==
[2023-09-03 14:52] VITALS: BP 186/80; PULSE 75; RESP 20; BMI 37.0
--- NOTE | 2023-09-03 15:15 | A.OFFVIS_ITS ---
[facility] Pain Management SOAP Note Subjective:: Patient is a pleasant 62-year-old female who presents today for medication refill and follow-up. We are currently treating the patient for degenerative disc disease of cervical and lumbar spine with cervical and lumbar radiculopathy symptoms, chronic knee pain, right shoulder pain. Today she rates her pain a 8 out of 10. Patient states that she has been experiencing worsening low back pain along the right side and feels like it may be a UTI or a kidney stone. She states that it is similar but yet still a little bit different. Patient denies any new trauma or injury. Patient states that she has not saw her primary care provider regarding this. Patient does also states that she is experiencing worsening pain in her right knee and would like to do an injection coming up for this. Patient has undergone her right shoulder surgery and states that they did tell her everything went well however it was worse than what they thought once they were in there. Patient does present today in sling due to this procedure. She states that at this time they have not yet started physical therapy. Patient is currently managed with Paradox 7.5 mg 4 times a day from our office and Lyrica 75 mg twice a day from her primary care provider. She denies any side effects from this medication however she states that she feels like the pain medication is not working as well currently. Patient did recently get a postop prescription for Percocet [address] Kahn's office with a 5-day supply. Her Tavo has been reviewed. Review of Systems: General: No recent weight changes, no fever, no sleep disturbances Respiratory: No cough, no shortness of air, no recurring pulmonary infections Cardiovascular/peripheral vascular: No chest pain, no palpitations, no edema, no shortness of breath Gastrointestinal: No new onset incontinence, normal bowel movements reported Genitourinary: No new onset incontinence Musculoskeletal: Right-sided low back pain Psychiatric: [Normal mood/affect] Neurological: [Denies weakness in extremities], [denies balance issues] Objective:: Physical Exam: General: Alert and oriented x3, no acute distress, pleasant and cooperative Lungs: Respirations even and unlabored, symmetrical chest expansion Eyes: PERRL Musculoskeletal: Flexion and extension of lumbar [spine] somewhat guarded secondary to pain, [antalgic gait noted] Neurological: Speech clear, no gross sensory deficit Assessment:: Degenerative disc disease of cervical and lumbar spine with cervical and lumbar radiculopathy symptoms, chronic knee pain, right shoulder pain Plan:: Patient is experiencing worsening pain in her low back along the right side and does state that she questions if she does have a kidney stone or UTI. I have counseled the patient that I will order her a urinalysis as well as x-ray and CT of her lumbar spine without contrast to rule these out. I will refill the patient's Paradox and provide a 1 month supply of this medication. Patient will return to clinic in 2 weeks for reevaluation of symptoms and plan of care. Patient did also have elevated free T4 levels from previous lab work drawn. We will follow-up with the patient at the next visit on how she is doing with her overall fatigue and whether or not we need to do additional evaluation for possible hypothyroid or send her to a specialist. Risks and benefits of the medication have been explained in detail to the patient. The patient does understand the risk of dependence on the medication when given over a prolonged period. Patient has been advised of risks of oversedation with the prescribed medication. Narcan has been offered to the paitent in the event of oversedation. Patient has been advised that a family member should also be educated regarding administration of Narcan. The patient has been advised to consult with his/her primary care provider and pharmacist regarding drug-drug interaction of medications currently prescribed. Patient has been prescribed a controlled substance after being counseled on the medication, medication safety, and possible side effects. Opioid contract was reviewed and signed by the patient, and that they have agreed to all of the terms set forth by our compliance program. Patient has been instructed to contact the clinic with any concerns before the next appointment. Dr. Barnett has reviewed this note and agrees with this plan of care. This note was dictated using voice recognition software and make contain errors or omissions. [facility] Disclaimer: The information contained in this section may have been updated after the patient was seen, as this information can be updated by other users. Medical History Abnormal electrocardiography Abnormal stress test Dyspnea Family History Other No significant family history Social History Smoking Status: Never smoker second hand exposure: No alcohol intake: never substance use type: denies use current occupational status: other Travel in the last 8 weeks: None household members: spouse housing: house current occupational exposures/hazards: No caffeine: Yes
[2023-09-03 16:09] LABS: Microscopic, Urine URINE MICROSCOPIC (MICROSCOPIC)
--- NOTE | 2023-09-03 16:27 | XR_ITS ---
PROCEDURE INFORMATION: Exam: XR Lumbosacral Spine Exam date and time: 09/03/2023 4:29 PM Age: 62 years old Clinical indication: Low back pain TECHNIQUE: Imaging protocol: Radiologic exam of the lumbosacral spine. Views: 4 or 5 views. COMPARISON: CR XR MULTIPLE SPINE 6+V 10/02/2020 10:57 AM FINDINGS: Bones/joints: There is a levo scoliotic curvature of the lumbar spine. The alignment of the lumbar spine is within normal limits with maintained lumbar lordosis. There are moderate degenerative changes characterized by disc space narrowing at multiple levels, most pronounced in the lower lumbar region. There is evidence of osteophyte formation along the vertebral bodies. The facet joints show moderate hypertrophic changes. The vertebral body heights are preserved, and there are no signs of acute fracture or dislocation. There is anterolisthesis of L4 on L5. There is loss of vertebral body at L5. Soft tissues: Unremarkable. Intraperitoneal space: There are right upper quadrant surgical clips suggesting prior cholecystectomy. Vasculature: The visualized portions of the abdominal aorta and pelvic bones appear unremarkable. Other findings: Prevertebral and paravertebral soft tissues appear unremarkable. IMPRESSION: 1. Moderate degenerative changes in the lumbar spine, including disc space narrowing and osteophyte formation. 2. No evidence of acute fracture or significant malalignment.
[2023-09-03 16:38] LABS: Appearance,Urine CLEAR (Clear); Bilirubin,Urine Negative (Negative); Blood, Urine Negative (Negative); Color,Urine YELLOW (Yellow); Glucose,Urine (UA) Negative (Negative); Ketones,Urine Negative (Negative); Leukocyte Esterase,Urine Negative (Negative); Nitrate,Urine Negative (Negative); Protein,Urine Negative (Negative); Urobilinogen,Urine 0.2 EU/dl (0.2)
[2023-09-03 16:58] LABS: Bacteria,Urine Trace /lpf; RBC,Urine Occasional #/hpf (0-3); Squamous Epithelial Cell,Urine Occasional #/hpf (0-5); WBC,Urine Occasional #/hpf (0-3)
== END 2023-09-03 23:59 | disposition home or self-care (01) ==
PROVIDERS: PCP Family Medicine; Visit Provider Nurse Practitioner Family
DX: M50.10 Cervical disc disorder with radiculopathy, unspecified cervical region (principal); M51.16 Intervertebral disc disorders with radiculopathy, lumbar region; M25.561 Pain in right knee; G89.29 Other chronic pain; M25.511 Pain in right shoulder
CPT/HCPCS: 72110; 81001; 99212; G0463

== ENCOUNTER 2023-09-21 11:16 | Emergency (ER) | payer MEDICARE, SELFPAY ==
[2023-09-21] VITALS (9 sets, daily range): BP systolic 91–175; BP diastolic 50–95; PULSE 53–60; RESP 16–20; TEMP 36.3–36.6; O2SAT 95–100; BMI 35.0
--- NOTE | 2023-09-21 11:24 | PC.NURSE ---
placed pt in bed, given warm blanket and pillow for comfort.
--- NOTE | 2023-09-21 11:45 | CT_ITS ---
PROCEDURE INFORMATION: Exam: CT Pelvis Without Contrast; Skeletal Exam date and time: 09/21/2023 12:25 PM Age: 62 years old Clinical indication: Injury or trauma; Fall; Blunt trauma (contusions or hematomas); Bilateral; Pelvic region; Additional info: Sudden KEATING, fall, injury TECHNIQUE: Imaging protocol: Computed tomography of the pelvis without contrast. Exam focused on the skeleton. Radiation optimization: All CT scans at this facility use at least one of these dose optimization techniques: automated exposure control; mA and/or kV adjustment per patient size (includes targeted exams where dose is matched to clinical indication); or iterative reconstruction. COMPARISON: CR HIPCMRT XR hip RT 2-3V w/pelvis 06/10/2018 2:45 PM FINDINGS: Bones/joints: There is a scoliosis with advanced asymmetric degenerative changes lower lumbar spine more pronounced right of midline. There are osteolytic changes involving the endplates at L4-L5 with loss of endplate definition and indistinct scalloping of the endplate margins resulting in widening of the disc space concerning for spondylodiscitis. Mild degenerative changes are present at the pubic symphysis. There is no pelvic fracture or malalignment. Soft tissues: The soft tissues: No significant paraspinal soft tissue swelling detected. IMPRESSION: 1. Negative for pelvic fracture. 2. Advanced degenerative changes lower lumbar spine with additional endplate changes L4-L5 concerning for superimposed spondylodiscitis. Follow-up contrast enhanced MRI examination is suggested for further assessment.
--- NOTE | 2023-09-21 11:45 | CT_ITS ---
PROCEDURE INFORMATION: Exam: CTA Head With Contrast, Arteriography Exam date and time: 09/21/2023 12:29 PM Age: 62 years old Clinical indication: Injury or trauma; Fall; Blunt trauma; Head; Additional info: Sudden KEATING, near syncope, fall, injury TECHNIQUE: Imaging protocol: Computed tomographic angiography of the head with contrast. Exam focused on the arteries. 3D rendering (Not supervised by radiologist): MIP and/or 3D reconstructed images were created by the technologist. Radiation optimization: All CT scans at this facility use at least one of these dose optimization techniques: automated exposure control; mA and/or kV adjustment per patient size (includes targeted exams where dose is matched to clinical indication); or iterative reconstruction. Contrast material: ISOVUE; Contrast volume: 100 ml; Contrast route: INTRAVENOUS (IV); COMPARISON: CT HEAD/BRAIN WO CON 09/21/2023 12:27 PM FINDINGS: Limitations: Study is significantly limited due to pronounced motion artifact. ANTERIOR CIRCULATION: Right internal carotid artery: Poorly visualized. No occlusion. Right middle cerebral artery: Not well visualized. No occlusion. Right anterior cerebral artery: Not well visualized. No occlusion Left internal carotid artery: Poorly visualized. No occlusion. Left middle cerebral artery: Not well visualized. No occlusion Left anterior cerebral artery: No o poorly visualized. No occlusion. POSTERIOR CIRCULATION: Right vertebral artery: No occlusion or significant stenosis. No aneurysm. Left vertebral artery: No occlusion or significant stenosis. No aneurysm. Basilar artery: No occlusion or significant stenosis. No aneurysm. Right posterior cerebral artery: Poorly visualized. No occlusion. Left posterior cerebral artery: Poorly visualized. No occlusion. Brain: No intracranial hemorrhage, mass effect, or midline shift. Cerebral ventricles: No ventriculomegaly. Bones/joints: Unremarkable. No acute fracture. Soft tissues: Unremarkable. Other findings: . IMPRESSION: 1. Suboptimal study significantly limited due to motion artifact. 2. No major branch occlusion detected.
--- NOTE | 2023-09-21 11:45 | CT_ITS ---
PROCEDURE INFORMATION: Exam: CT Head Without Contrast Exam date and time: 09/21/2023 12:27 PM Age: 62 years old Clinical indication: Pain; Headache; Additional info: Sudden KEATING, near syncope, fall, injury TECHNIQUE: Imaging protocol: Computed tomography of the head without contrast. Radiation optimization: All CT scans at this facility use at least one of these dose optimization techniques: automated exposure control; mA and/or kV adjustment per patient size (includes targeted exams where dose is matched to clinical indication); or iterative reconstruction. COMPARISON: SINUSWO CT sinus wo con 07/24/2018 2:18 PM FINDINGS: Brain: Moderate chronic microvascular ischemic changes are noted in the periventricular areas. Moderate diffuse cerebral atrophy is seen. Cerebral ventricles: No ventriculomegaly. Paranasal sinuses: A mucous retention cyst is seen in the left maxillary sinus. Mastoid air cells: Visualized mastoid air cells are well aerated. Bones/joints: Unremarkable. No acute fracture. Soft tissues: Unremarkable. IMPRESSION: 1. No acute findings. 2. Moderate chronic microvascular ischemic changes with moderate diffuse cerebral atrophy. 3. Mucous retention cyst in the left maxillary sinus.
--- NOTE | 2023-09-21 11:45 | CT_ITS ---
PROCEDURE INFORMATION: Exam: CTA Neck With Contrast Exam date and time: 09/21/2023 12:29 PM Age: 62 years old Clinical indication: Injury or trauma; Fall; Blunt trauma; Neck; Additional info: Sudden KEATING, near syncope, fall, injury TECHNIQUE: Imaging protocol: Computed tomographic angiography of the neck with contrast. Exam focused on the cervical segments of the vasculature. 3D rendering (Not supervised by radiologist): MIP and/or 3D reconstructed images were created by the technologist. Radiation optimization: All CT scans at this facility use at least one of these dose optimization techniques: automated exposure control; mA and/or kV adjustment per patient size (includes targeted exams where dose is matched to clinical indication); or iterative reconstruction. Contrast material: ISOVUE; Contrast volume: 100 ml; Contrast route: INTRAVENOUS (IV); COMPARISON: CT ANGIO HEAD 09/21/2023 12:29 PM FINDINGS: Limitations: Study is technically suboptimal due to metallic streak artifact emanating from patient's spinal hardware as well as some motion artifact. Right vertebral artery poorly visualized but appears grossly patent. Right common carotid artery: No stenosis. No dissection or occlusion. Right internal carotid artery: No stenosis of the extracranial segment. No dissection or occlusion. Right external carotid artery: No occlusion or stenosis of the origin. Left common carotid artery: No stenosis. No dissection or occlusion. Left internal carotid artery: No stenosis of the extracranial segment. No dissection or occlusion. Left external carotid artery: No occlusion or stenosis of the origin. Right vertebral artery: No stenosis. No dissection or occlusion. Left vertebral artery: Left vertebral artery poorly visualized but appears grossly patent. Soft tissues: Normal. No significant soft tissue swelling. Bones/joints: No acute fracture. IMPRESSION: 1. Limited study with poor visualization vertebral arteries due to extensive metallic artifact emanating from patient's spinal hardware. 2. No evidence of carotid stenosis. REFERENCES: NASCET CRITERIA. The degree of stenosis in the cervical segment of the internal carotid artery is based on NASCET criteria. Normal is no stenosis. Mild is less than 50% stenosis. Moderate is 50-69% stenosis. Severe is 70% to 99% stenosis. Total occlusion is no detectable patent lumen.
--- NOTE | 2023-09-21 11:51 | HMH.EDGENADL ---
Discharge Plan Disposition Patient Disposition: Home, Self-Care Prescriptions Prescriptions: No Action naproxen 500 mg tablet 500 mg PO Q12H PRN (Reason: pain) venlafaxine 75 mg capsule,extended release 24hr 150 mg PO BID cholecalciferol (vitamin D3) 1,000 unit capsule 1,000 unit PO DAILY zinc acetate [Galzin] 50 mg (zinc) capsule 50 mg PO DAILY bumetanide 1 mg tablet 1 mg PO DAILY levothyroxine 125 mcg tablet 125 mcg PO DAILY potassium chloride 10 mEq capsule, extended release 10 meq PO DAILY cyanocobalamin (vitamin B-12) 500 mcg tablet 500 mcg PO DAILY Patient Comments: TAKE ONE TABLET BY MOUTH EVERY WEEK ascorbic acid (vitamin C) [Vitamin C] 500 mg tablet 0.5 g PO DAILY Patient Comments: TAKE ONE TABLET BY MOUTH EVERY DAY vitamin B complex-folic acid 400 mcg tablet extended release 1 tab PO DAILY Patient Comments: TAKE ONE TABLET BY MOUTH EVERY DAY nitroglycerin 0.4 mg tablet, sublingual 0.4 mg sublingual Q5-15M PRN (Reason: chest pain) Qty: 30 1RF Rx Instructions: do not exceed 3 doses per episode diclofenac sodium 2 GM solution in packet 2 g TP QID rivaroxaban 20 MG tablet 20 mg PO DAILY Rx Instructions: must administer with evening meal metoprolol succinate 25 MG tablet extended release 24 hr 25 mg PO DAILY promethazine 25 mg Tablet 25 mg PO Q6H PRN (Reason: Nausea And Vomiting) Qty: 20 0RF hydrocodone-acetaminophen 7.5-325 mg tablet 1 tab PO QID Qty: 120 0RF topiramate 50 tablet 50 mg PO BID Patient Comments: ferrous sulfate 325 MG tablet 325 mg PO DAILY pramipexole 1 tablet 1 mg PO TID pantoprazole 40 MG tablet,delayed release (DR/EC) 40 mg PO DAILY Referrals Follow up/Referrals: Yonatan Euceda MD [Staff Physician] - See instructions Ulises Judd MD [Primary Care Provider] - See instructions Activity Restrictions/Add. Instructions Additional Instructions/Restrictions: No neurologic or cardiovascular emergency or traumatic emergency identified today. Given the fact that she had a near syncopal episode I would recommend you follow-up with Dr. Euceda for further investigation of your heart including a Holter monitor and/or an echo to look for further structural heart disease. Return with any significant worsening of your symptoms Clinical Impressions Clinical Impression: Headache, Near syncope, Coccyx contusion, Fall Discharge ED Provider: Austin Kennedy General Adult HPI General Chief complaint: Fall Stated complaint: AO 09/21/23 @10:45 fell, bottom and lower back taya Time Seen by Provider: 09/21/23 11:34 Mode of Arrival: Wheelchair Source of Information: Patient Limitations: No Limitations Description of Symptoms (Recalled from ER Triage Doc. by RN): Patient states she was singing in the choir at [employer] when she stood up and felt a little off balance. States she has had a migraine and when she attempted to walk down the steps she fell landing on her bottom. Complaint of headache, lower back pain and pain in her bottom. States she took a lortab at approx 915am. History of Present Illness HPI narrative: Patient is a 62-year-old female presenting today with multiple complaints. States that she started feeling a stabbing headache around 830 this morning that was associated with lightheadedness and dizziness. She states that her symptoms persisted when she went to [employer] and she was getting ready to sing in the choir and she felt very lightheaded while sitting song needed to be accompanied by her walking down stairs afterwards she had a near syncopal episode where she fell did not lose consciousness but fell directly onto her buttock and has significant pain in that region right now. Headache has persisted and is severe. She has had migraines like this in the past no history of any vascular problems including aneurysms etc. Headache has not improved since this began. Related Data Home Medications Medication Instructions Recorded Confirmed cholecalciferol (vitamin D3) 25 1,000 unit PO DAILY Supplement 07/23/17 08/01/23 mcg (1,000 unit) capsule naproxen 500 mg tablet 500 mg PO Q12H PRN pain 07/23/17 08/01/23 venlafaxine 75 mg capsule,extended 150 mg PO BID Depression 07/23/17 08/01/23 release 24 hr zinc acetate 50 mg (zinc) capsule 50 mg PO DAILY Supplement 07/23/17 08/01/23 (Galzin) topiramate 50 mg tablet 50 mg PO BID HEADACHES 08/20/17 08/01/23 ferrous sulfate 325 mg (65 mg 325 mg PO DAILY Supplement 05/06/18 08/01/23 iron) tablet pramipexole 1 mg tablet 1 mg PO TID restless legs 05/06/18 08/01/23 pantoprazole 40 mg tablet,delayed 40 mg PO DAILY stomach 05/28/20 08/01/23 release diclofenac sodium 2 % topical 2 g topical QID NSAID 04/13/21 08/01/23 solution in packet vitamin B complex-folic acid ER 1 tab PO DAILY Supplement 04/26/21 08/01/23 400 mcg tablet,extended release bumetanide 1 mg tablet 1 mg PO DAILY Fluid 05/17/21 08/01/23 levothyroxine 125 mcg tablet 125 mcg PO DAILY Supplement 05/17/21 08/01/23 potassium chloride 10 mEq 10 meq PO DAILY Supplement 05/17/21 08/01/23 capsule,extended release metoprolol succinate 25 mg 25 mg PO DAILY BLOOD PRESSURE 10/01/21 08/01/23 tablet,extended release 24 hr rivaroxaban 20 mg tablet 20 mg PO DAILY Blood thinner 10/01/21 08/01/23 ascorbic acid (vitamin C) 500 mg 0.5 g PO DAILY 06/11/23 08/01/23 tablet (Vitamin C) cyanocobalamin (vitamin B-12) 500 500 mcg PO DAILY 06/11/23 08/01/23 mcg tablet Previous Rx's Medication Instructions Recorded promethazine 25 mg tablet 25 mg PO Q6H PRN Nausea And 02/28/22 Vomiting #20 tabs nitroglycerin 0.4 mg sublingual 0.4 mg sublingual Q5-15M PRN chest 04/29/23 tablet pain #30 tabs hydrocodone 7.5 mg-acetaminophen 1 tab PO QID #120 tabs 09/03/23 325 mg tablet Allergies Allergy/AdvReac Type Severity Reaction Status Date / Time gabapentin Allergy Verified 09/21/23 11:31 hyaluronic acid AdvReac Severe Verified 06/11/23 09:14 [From Cat[facility]] [facility] Disclaimer: The information contained in this section may have been updated after the patient was seen, as this information can be updated by other users. Medical History Abnormal electrocardiography Abnormal stress test Dyspnea Family History Other No significant family history Social History Smoking Status: Unknown if ever smoked second hand exposure: No alcohol intake: never substance use type: denies use current occupational status: other Travel in the last 8 weeks: None household members: spouse housing: house current occupational exposures/hazards: No caffeine: Yes ROS Obtained: Yes All systems reviewed & no additional complaints except as documented Physical Exam General General appearance: lethargic Respiratory Respiratory exam: Present normal lung sounds bilaterally Cardiovascular Cardiovascular exam: Present regular rate and normal rhythm Back Exam Back exam: Present other (No midline lumbar or thoracic spine tenderness or cervical spine tenderness) Back 1 view image: 1. ttp Neurological Exam Neurological exam: Present alert and oriented X3 Medical Decision Making Tavo Inquiry Pt receiving controlled substance: No Vital Signs: 09/21/23 11:18 09/21/23 11:24 09/21/23 12:15 Temperature 97.4 F L Temperature Source Oral Pulse Rate 54 L Pulse Rate [Radial] 56 L Respiratory Rate 16 Blood Pressure 175/92 H 151/95 H Blood Pressure [Right Arm] 175/92 H Blood Pressure Mean 123 Blood Pressure Mean [Right Arm] 119 Blood Pressure Source [Right Arm] Automatic Cuff Blood Pressure Position [Right Arm] Sitting 02 Sat by Pulse Oximetry 100 99 Oxygen Delivery Method Room Air Room Air 09/21/23 13:01 Temperature Temperature Source Pulse Rate 55 L Pulse Rate [Radial] Respiratory Rate Blood Pressure 91/50 L Blood Pressure [Right Arm] Blood Pressure Mean 64 Blood Pressure Mean [Right Arm] Blood Pressure Source [Right Arm] Blood Pressure Position [Right Arm] 02 Sat by Pulse Oximetry 96 Oxygen Delivery Method Room Air Lab Data Lab Results 09/21/23 11:50: WBC 4.0 L, RBC 4.02 L, Hgb 13.2, Hct 41.0, MCV 102.0 H, MCH 32.7 H, MCHC 32.1, RDW 13.4, Plt Count 203, MPV 8.7, Neut % (Auto) 62.1, Lymph % (Auto) 23.2, [place] % (Auto) 10.5 H, Eos % (Auto) 3.3, Baso % (Auto) 0.9, Neut # (Auto) 2.5, Lymph # (Auto) 0.9, [place] # (Auto) 0.4, Eos # (Auto) 0.1, Baso # (Auto) 0.0, Sodium 140, Potassium 3.9, Chloride 111 H, Carbon Dioxide 31 H, Anion Gap 1.9 L, BUN 15, Creatinine 0.90, Estimated Creat Clear 94, Estimated GFR 63, Est GFR ( Amer) 77, Glucose 102 H, Calcium 9.0, Magnesium 2.2, Total Bilirubin 0.2, AST 45 H, ALT 42, Alkaline Phosphatase 114, Troponin I < 0.01, Total Protein 6.2 L, Albumin 3.5, Globulin 2.7, Albumin/Globulin Ratio 1.3 09/21/23 11:50 09/21/23 11:50 Orders (Tests/Meds): ED MEDICATIONS Discontinued Medications Generic Name Dose Route Start Last Admin Trade Name Freq PRN Reason Stop Dose Admin Diphenhydramine HCl 12.5 mg 09/21/23 11:45 09/21/23 12:02 Diphenhydramine 50mg/Ml Vial IV 09/21/23 11:46 12.5 mg ONCE ONE Administration Lactated Ringer's 500 mls @ 999 mls/hr 09/21/23 11:45 09/21/23 12:01 Lactated Ringer's 1000 Ml Bag IV 09/21/23 12:15 999 mls/hr .Q31M JAVIER Administration Iopamidol 100 ml 09/21/23 12:36 09/21/23 12:37 Iopamidol-370 (76%);100ml Bottle IV 09/21/23 12:37 100 ml ONCE ONE Administration Ketorolac Tromethamine 15 mg 09/21/23 11:45 09/21/23 12:00 Ketorolac 30mg/Ml Vial IV 09/21/23 11:46 15 mg ONCE ONE Administration Prochlorperazine Edisylate 5 mg 09/21/23 11:45 09/21/23 12:03 Prochlorperazine 10mg/2ml Vial IV 09/21/23 11:46 5 mg ONCE ONE Administration Sodium Chloride 50 ml 09/21/23 12:36 09/21/23 12:37 0.9 % Sodium Chloride 50 Ml Vial IV 09/21/23 12:37 50 ml ONCE ONE Administration Sodium Chloride 10 ml 09/21/23 12:36 09/21/23 12:37 Sodium Chloride 0.9% 10ml Syr (Rad Only) IV 09/21/23 12:37 10 ml ONCE ONE Administration ORDERS Category Date Time Status CT angio head Stat Cat Scan 09/21/23 11:[address] angio neck Stat Cat Scan 09/21/23 11:[address] bony pelvis Stat Cat Scan 09/21/23 11:[address] head/brain wo con Stat Cat Scan 09/21/23 11:45 Completed CBC w/Auto Diff [Complete Blood Count Auto Diff] Stat Lab 09/21/23 11:50 Completed CMP [Comprehensive Metabolic Panel] Stat Lab 09/21/23 11:50 Completed Magnesium Stat Lab 09/21/23 11:50 Completed Trop I [Troponin I] Stat Lab 09/21/23 11:50 Completed Troponin I Q3H Lab 09/21/23 15:00 Ordered Troponin I Q3H Lab 09/21/23 18:00 Ordered ECG Data Tracing #1: I reviewed this ECG and interpreted as documented below: Ventricular rate of 53 sinus bradycardia no acute ischemic changes noted there is normal axis nondiagnostic EKG Medical Decision Narrative: Patient is a 62-year-old female presenting with above history and physical. Differential includes migraine, vascular dissection, aneurysmal rupture, arrhythmia, dehydration coccygeal fracture versus contusion etc. Will get a bony pelvis CT scan as well as a CT of the head and CT angio head and neck EKG and further workup for syncope. Migraine cocktail is also been administered will reassess. Reassessment 1:46 PM patient is somewhat somnolent from her migraine cocktail but is feeling better. CT scans performed which I personally interpreted and reviewed which show no traumatic or cardiovascular or neurovascular emergency. EKG was unremarkable labs unremarkable. She will be following up with Dr. Euceda for outpatient Holter and echo for structural heart disease. Cannot exactly determine exactly what did cause her syncopal or near syncopal episode today but cannot rule out arrhythmia. She and her reassured she was discharged in stable condition once fully awake. Critical Care Critical Care Time Critical Care Time: No
[2023-09-21] MEDS: KETOROLAC 30MG/ML VIAL 15 MG IV (12:00)
[2023-09-21] MEDS: LACTATED RINGERS 1000ML 500 ML 999 ML IV (12:01)
[2023-09-21] MEDS: diphenhydrAMINE 50MG/ML VIAL 12.5 MG IV (12:02)
[2023-09-21 12:03] LABS: Basophils % 0.9 % (0.1-2.0); Chloride 111 mmol/L (98-107); Eosinophils # 0.1 K/mm3 (0.0-0.4); Eosinophils % 3.3 % (0.1-12.0); Hemoglobin 13.2 g/dL (12.2-16.2); Lymphocytes # 0.9 K/mm3 (0.7-4.5); Lymphocytes % 23.2 % (10-50); Mean Corpuscular HGB Conc 32.1 g/dL (31.8-35.4); Mean Corpuscular Hemoglobin 32.7 pg (27.0-31.2); Mean Platelet Volume 8.7 fl (7.4-10.4); Monocytes # 0.4 K/mm3 (0.1-1.0); Monocytes % 10.5 % (1.7-9.3); Neutrophils # 2.5 K/mm3 (1.8-7.8); Neutrophils % 62.1 % (37.0-80.0); Platelet Count 203 K/mm3 (142-424); Red Blood Count 4.02 M/mm3 (4.20-5.40); Red Cell Distribution Width 13.4 % (11.5-17.5)
[2023-09-21] MEDS: PROCHLORPERAZINE 10MG/2ML VIAL 5 MG IV (12:03)
--- NOTE | 2023-09-21 12:03 | ECG_ITS ---
APPROVED REPORT Exam: Resting ECG HR:53 bpm ECG Measurements Heart Rate 53 AXES WA 187 P 58 QRSd 97 QRS 11 QT 465 T 32 QTc 448 Conclusion SINUS BRADYCARDIA WITH OCCASIONAL SUPRAVENTRICULAR PREMATURE COMPLEXES BORDERLINE ECG UNCONFIRMED REPORT Electronically signed by : Thaddeus Kennedy, 09/21/2023 14:24:34
[2023-09-21 12:04] LABS: Potassium 3.9 mmoL/L (3.5-5.1); Sodium 140 mmol/L (136-145)
[2023-09-21 12:06] LABS: Alanine Aminotransferase 42 U/L (12-78); Aspartate Amino Transferase 45 U/L (14-36); Blood Urea Nitrogen 15 mg/dl (7-17); Creatinine Clearance Estimated 94 mL/min (50-200); Estimated Glomerular Filt Rate 63 ml/min (>60); GFR (African American) 77 ML/MIN (>60)
[2023-09-21 12:07] LABS: Albumin Level 3.5 g/dl (3.5-5.0); Albumin/Globulin Ratio 1.3 (1.1-1.8); Alkaline Phosphatase 114 U/L (38-126); Anion Gap 1.9 mEq/L (5-15); Bilirubin,Total 0.2 mg/dl (0.2-1.3); Carbon Dioxide 31 mmol/L (22.0-30.0); Globulin 2.7 g/dL (1.3-3.2); Glucose 102 mg/dl (74-100); Magnesium 2.2 mg/dl (1.6-2.3); Total Protein,Serum 6.2 g/dl (6.3-8.2)
[2023-09-21 12:20] LABS: Troponin I < 0.01 ng/ml (0.00-0.034)
--- NOTE | 2023-09-21 12:20 | PC.NURSE ---
Pt gone to RAD via stretcher
[2023-09-21] MEDS: 0.9 % SODIUM CHLORIDE 50 ML VIAL IV (12:37)
[2023-09-21] MEDS: IOPAMIDOL-370 (76%);100ML BOTTLE 100 ML IV (12:37)
[2023-09-21] MEDS: SODIUM CHLORIDE 0.9% 10ML SYR (RAD ONLY) 10 ML IV (12:37)
--- NOTE | 2023-09-21 13:14 | PC.NURSE ---
dietary notified of lunch tray request
--- NOTE | 2023-09-21 15:12 | PC.NURSE ---
pt is still asleep. is @ bedside.
== END 2023-09-21 16:08 | disposition home or self-care (01) ==
PROVIDERS: Emergency Provider Student in an Organized Health Care Education/Training Program; PCP Family Medicine
DX: R00.1 Bradycardia, unspecified (principal); S30.0XXA Contusion of lower back and pelvis, initial encounter; G44.89 Other headache syndrome; R55 Syncope and collapse; W19.XXXA Unspecified fall, initial encounter
CPT/HCPCS: 70450; 70496; 70498; 72192; 80053; 83735; 84484; 85025; 93005; 96374; 96375; 99285; Q9967

== ENCOUNTER 2023-09-24 13:44 | Outpatient (POV) | payer MEDICARE, SELFPAY ==
--- NOTE | 2023-09-24 14:04 | A.OFFVIS_ITS ---
[facility] Pain Management SOAP Note Subjective:: Patient is a pleasant 62-year-old female who presents today for medication refill and follow-up. Today she rates her pain a 9 out of 10. Patient states that she did recently have a [facility] [place] [employer]. Patient states that there was not anything in particular she stumbled over however she was having somewhat of migraine symptoms and felt like she kind of blacked out causing her to fall backwards. Patient states that she did go to the ER for evaluation and had no acute fractures. She does state that today she is a little bit more sore in and around her right knee and would like to see about doing an injection. Patient describes this as a fairly constant aching sensation that is worse with increased activity or ambulation. She does state the pain interferes with her ability to perform activities of daily living such as cooking and cleaning. Patient has not had a total knee replacement in the right knee. She has had replacement in the left. Patient is currently managed with Stonewall 7.5 mg 4 times a day from our office and pregabalin from an outside provider. She denies any side effects from this medication. Her Tavo has been reviewed and is appropriate. Review of Systems: General: No recent weight changes, no fever, no sleep disturbances Respiratory: No cough, no shortness of air, no recurring pulmonary infections Cardiovascular/peripheral vascular: No chest pain, no palpitations, no edema, no shortness of breath Gastrointestinal: No new onset incontinence, normal bowel movements reported Genitourinary: No new onset incontinence Musculoskeletal: Low back pain, right knee pain Psychiatric: [Normal mood/affect] Neurological: [Denies weakness in extremities], [denies balance issues] Objective:: Physical Exam: General: Alert and oriented x3, no acute distress, pleasant and cooperative Lungs: Respirations even and unlabored, symmetrical chest expansion Eyes: PERRL Musculoskeletal: Flexion and extension of right knee somewhat guarded secondary to pain, [antalgic gait noted] Neurological: Speech clear, no gross sensory deficit Assessment:: Degenerative disc disease of cervical and lumbar spine with cervical and lumbar radiculopathy symptoms, chronic knee pain, left shoulder pain Plan:: Patient is experiencing worsening pain in her right knee with limited range of motion. I discussed the risk and benefits of the intra-articular knee injection and she would like to proceed forward with this plan of care. I have also discussed with the patient due to the history of migraines and findings on her head CT is that it may be beneficial to see neurology such as Dr. Kamara for additional testing. Patient states at this time she will wait. I have counseled her to just let our office know if she would like us to send a referral at any time. I will refill the patient's Stonewall 7.5 mg 4 times a day and provide a 1 month supply of this medication. This is ahead of schedule I have counseled the patient that it will be there when her next scheduled pickup date is available. Patient acknowledges understanding of this. Patient will be scheduled for right knee intra-articular injection. Risks and benefits of the medication have been explained in detail to the patient. The patient does understand the risk of dependence on the medication when given over a prolonged period. Patient has been advised of risks of oversedation with the prescribed medication. Narcan has been offered to the paitent in the event of oversedation. Patient has been advised that a family member should also be educated regarding administration of Narcan. The patient has been advised to consult with his/her primary care provider and pharmacist regarding drug-drug interaction of medications currently prescribed. Patient has been prescribed a controlled substance after being counseled on the medication, medication safety, and possible side effects. Opioid contract was reviewed and signed by the patient, and that they have agreed to all of the terms set forth by our compliance program. Patient has been instructed to contact the clinic with any concerns before the next appointment. Dr. Barnett has reviewed this note and agrees with this plan of care. This note was dictated using voice recognition software and make contain errors or omissions. [facility] Disclaimer: The information contained in this section may have been updated after the patient was seen, as this information can be updated by other users. Medical History Abnormal electrocardiography Abnormal stress test Dyspnea Family History Other No significant family history Social History Smoking Status: Unknown if ever smoked second hand exposure: No alcohol intake: never substance use type: denies use current occupational status: other Travel in the last 8 weeks: None household members: spouse housing: house current occupational exposures/hazards: No caffeine: Yes
[2023-09-24 14:33] VITALS: BP 148/70; PULSE 62; RESP 20; BMI 37.2
== END 2023-09-24 23:59 | disposition home or self-care (01) ==
PROVIDERS: PCP Family Medicine; Visit Provider Nurse Practitioner Family
DX: M50.10 Cervical disc disorder with radiculopathy, unspecified cervical region (principal); M51.16 Intervertebral disc disorders with radiculopathy, lumbar region; M25.561 Pain in right knee; G89.29 Other chronic pain; M25.512 Pain in left shoulder
CPT/HCPCS: 99212; G0463

== ENCOUNTER 2023-10-21 11:07 | Day surgery (SDC) | payer MEDICARE, SELFPAY ==
[2023-10-21 11:22] VITALS: BP 166/74; PULSE 58; RESP 18; O2SAT 100; BMI 36.0
--- NOTE | 2023-10-21 11:29 | EXP.PAIN.PRO ---
Procedure Date: 10/21/23 Time: 11:20 Anesthesiologist:: Charles Steele CRNA Complications:: None Pre-procedure Diagnosis:: DJD right knee. Chronic right knee pain. Post-procedure Diagnosis:: Same. Indications for Procedure:: Patient is a pleasant 62-year-old female that comes our clinic today for a right intra-articular knee injection. Patient reports right knee pain that is constant, dull, sharp, stabbing. She rates the pain 9/10. Procedure Details:: . Procedure Details: Right intra-articular knee injection Informed consent was obtained risk and benefits of the procedure were explained to the patient. Patient was taken the procedure room the right knee was prepped using ChloraPrep. A 25-gauge needle was used to inject 10 mL bupivacaine 0.25% and Depo-Medrol 40 mg into the right knee. The patient tolerated the procedure well with no complications. Plan and Disposition:: Patient was discharged without incident.
[2023-10-21] MEDS: BUPIVACAINE 0.25% 10ML INJ 25 MG IJ (11:31)
[2023-10-21] MEDS: methylPREDNISolone ACETATE 80MG/ML VIAL 80 MG (11:32)
[2023-10-21] MEDS: LIDOCAINE 1% 5ML PF VIAL 5 ML (11:32)
[2023-10-21 11:40] VITALS: BP 151/81; PULSE 57; RESP 18; O2SAT 100
== END 2023-10-21 11:40 | disposition home or self-care (01) ==
PROVIDERS: PCP Family Medicine; Visit Provider Nurse Anesthetist, Certified Registered
DX: M17.11 Unilateral primary osteoarthritis, right knee (principal); M25.561 Pain in right knee; G89.29 Other chronic pain
CPT/HCPCS: 20610; J1010

== ENCOUNTER 2023-11-05 10:34 | Outpatient (POV) | payer MEDICARE, SELFPAY ==
[2023-11-05 11:08] VITALS: BP 139/66; PULSE 54; RESP 16; O2SAT 96; BMI 36.6
--- NOTE | 2023-11-05 15:52 | EXP.PAIN.SOA ---
[facility] Pain Management SOAP Note Subjective:: Patient is a pleasant 62-year-old female who presents today for follow-up of right intra-articular knee injection as well as medication refill. Today she rates her pain a 1 out of 10 in the right knee however states that her pain in her low back and legs is a 8 out of 10. Patient states it is a chronic aching, throbbing sensation with numbness and tingling into her extremities. She does state the pain interferes with her ability perform activities of daily living such as cooking and cleaning. She does also state that she is also having a lot of pain in her right foot around the toes. Patient states that she does have the big toe where it was broken in the past and then has the other 4 that are hammertoes. She states that she has chronic pain related to this. Patient is currently managed with Lincoln 7.5 mg 4 times a day from our office and pregabalin from an outside provider. She denies any side effects from this medication. Her Tavo has been reviewed and is appropriate. Review of Systems: General: No recent weight changes, no fever, no sleep disturbances Respiratory: No cough, no shortness of air, no recurring pulmonary infections Cardiovascular/peripheral vascular: No chest pain, no palpitations, no edema, no shortness of breath Gastrointestinal: No new onset incontinence, normal bowel movements reported Genitourinary: No new onset incontinence Musculoskeletal: Low back pain, leg pain Psychiatric: [Normal mood/affect] Neurological: [Denies weakness in extremities], [denies balance issues] Objective:: Physical Exam: General: Alert and oriented x3, no acute distress, pleasant and cooperative Lungs: Respirations even and unlabored, symmetrical chest expansion Eyes: PERRL Musculoskeletal: Flexion and extension of lumbar [spine] somewhat guarded secondary to pain, [antalgic gait noted] Neurological: Speech clear, no gross sensory deficit Assessment:: Degenerative disc disease of cervical and lumbar spine with cervical and lumbar radiculopathy symptoms, chronic knee pain, left shoulder pain, right foot pain Plan:: Patient is experiencing worsening pain in her low back with radiating symptoms down into her lower extremities. Patient does have limited range of motion of her lumbar spine. I have discussed with patient that she may benefit from lumbar epidural steroid injection. Risk and benefits were discussed with patient and she would like to proceed forward with this plan of care. Patient is on Xarelto and will have to stop this medication prior to her injection. We will reach out to her provider and confirm that she can discontinue this medication temporarily. Patient has tried and failed conservative therapies with continued at home exercises and stretching with minimal relief in between injections. I will refill the patient's Lincoln 7.5 mg 4 times a day and provide a 1 month supply of this medication. Patient will be scheduled for an LESI L4-L5 under fluoroscopy. Risks and benefits of the medication have been explained in detail to the patient. The patient does understand the risk of dependence on the medication when given over a prolonged period. Patient has been advised of risks of oversedation with the prescribed medication. Narcan has been offered to the paitent in the event of oversedation. Patient has been advised that a family member should also be educated regarding administration of Narcan. The patient has been advised to consult with his/her primary care provider and pharmacist regarding drug-drug interaction of medications currently prescribed. Patient has been prescribed a controlled substance after being counseled on the medication, medication safety, and possible side effects. Opioid contract was reviewed and signed by the patient, and that they have agreed to all of the terms set forth by our compliance program. Patient has been instructed to contact the clinic with any concerns before the next appointment. Dr. Barnett has reviewed this note and agrees with this plan of care. This note was dictated using voice recognition software and make contain errors or omissions. [facility] Disclaimer: The information contained in this section may have been updated after the patient was seen, as this information can be updated by other users. Medical History Abnormal electrocardiography Abnormal stress test Dyspnea Family History Other No significant family history Social History Smoking Status: Unknown if ever smoked second hand exposure: No alcohol intake: never substance use type: denies use current occupational status: other Travel in the last 8 weeks: None household members: spouse housing: house current occupational exposures/hazards: No caffeine: Yes
== END 2023-11-05 23:59 | disposition home or self-care (01) ==
PROVIDERS: PCP Family Medicine; Visit Provider Nurse Practitioner Family
DX: M51.16 Intervertebral disc disorders with radiculopathy, lumbar region (principal); M50.10 Cervical disc disorder with radiculopathy, unspecified cervical region; M25.561 Pain in right knee; G89.29 Other chronic pain; M25.512 Pain in left shoulder; M79.671 Pain in right foot
CPT/HCPCS: 99212; G0463

== ENCOUNTER 2023-11-13 15:00 | Outpatient (RCR) | payer MEDICARE, SELFPAY | END 2023-11-13 16:10 | disposition home or self-care (01) | LOC: OT 15:00 | PROVIDERS: Visit Provider Orthopaedic Surgery | DX: M25.511 Pain in right shoulder (principal) | CPT/HCPCS: 97010; 97014; 97110; 97140; 97164; 97165; 97530; G0283 ==

== ENCOUNTER 2023-11-25 11:31 | Day surgery (SDC) | payer MEDICARE, SELFPAY ==
[2023-11-25 12:02] VITALS: BP 153/79; PULSE 66; RESP 18; TEMP 36.4; O2SAT 100; BMI 36.0
[2023-11-25 12:25] VITALS: BP 162/85; PULSE 57; RESP 18; O2SAT 98
--- NOTE | 2023-11-25 12:26 | EXP.PAIN.PRO ---
Procedure Date: 11/25/23 Time: 12:20 Anesthesiologist:: Charles Steele CRNA Complications:: None Pre-procedure Diagnosis:: Degenerative disc lumbar spine multilevels. Lumbar radiculopathy. Lumbar postlaminectomy syndrome. Post-procedure Diagnosis:: Same. Indications for Procedure:: Patient is a very pleasant 62-year-old female comes our clinic today for lumbar epidural steroid injection at the L4-5 level. However, upon looking at the anatomy under fluoroscopy L4-5 is the postlaminectomy syndrome level. Lumbar epidural steroid injection was given at the L3-4 level. Patient describes low back pain is constant, dull, aching. She rates her pain 6/10. Patient also reports bilateral leg radiculopathy at times. Procedure Details:: Procedure: Lumbar epidural steroid injection under fluoroscopy Informed consent was obtained and the risks and benefits of the procedure were explained to the patient. The patient was taken to the procedure room and noninvasive monitors placed, including noninvasive blood pressure cuff and pulse oximeter. The back was viewed using C-arm Fluoroscopy and prepped using Chloraprep as a cleansing solution and the L3-4 interspace was palpated. Skin and subcutaneous tissues were anesthetized using lidocaine 1.5% and a 25-gauge needle. After this, an 18-gauge Touhy epidural needle was placed into the L3-4 interspace and advanced using fluoroscopic guidance and loss of resistance to air until the epidural space was encountered. After confirmation of needle placement in the epidural space, with dye, a solution containing normal saline, 3 mL and Depo-Medrol 80 mg were incrementally injected into the lumbar epidural space. The patient tolerated the procedure well with no complications. The patient was observed in the Pain Clinic and then discharged home neurologically intact. Plan and Disposition:: Patient was discharged without incident.
[2023-11-25] MEDS: methylPREDNISolone ACETATE 80MG/ML VIAL 80 MG (12:49)
== END 2023-11-25 12:27 | disposition home or self-care (01) ==
PROVIDERS: PCP Family Medicine; Visit Provider Nurse Anesthetist, Certified Registered
DX: M51.16 Intervertebral disc disorders with radiculopathy, lumbar region (principal); M96.1 Postlaminectomy syndrome, not elsewhere classified
CPT/HCPCS: 62323

== ENCOUNTER 2023-12-03 13:35 | Outpatient (POV) | payer MEDICARE, SELFPAY ==
--- NOTE | 2023-12-03 13:53 | EXP.PAIN.SOA ---
[facility] Pain Management SOAP Note Subjective:: Patient is a pleasant 62-year-old female who presents today for medication refill and follow-up of lumbar epidural steroid injection L3-L4 on 11/25/2023. Today she rates her pain a 4 out of 10. Patient does state that she had significant improvement following this injection of more than 50%. Patient is very emotional during today's visit and states that she has been having seizure-like activity. Patient does state that this is not uncommon and that she has had it in the past and has been to neurology however denies ever being put on medication for this. Patient states the last week or so has been increased for no specific reason. Patient is currently managed with [place] 7.5 mg 4 times a day from our office and pregabalin from an outside provider. She denies any side effects from this medication. Her Tavo has been reviewed and is appropriate. Review of Systems: General: No recent weight changes, no fever, no sleep disturbances Respiratory: No cough, no shortness of air, no recurring pulmonary infections Cardiovascular/peripheral vascular: No chest pain, no palpitations, no edema, no shortness of breath Gastrointestinal: No new onset incontinence, normal bowel movements reported Genitourinary: No new onset incontinence Musculoskeletal: Low back pain Psychiatric: [Normal mood/affect] Neurological: [Denies weakness in extremities], [denies balance issues] Objective:: Physical Exam: General: Alert and oriented x3, no acute distress, pleasant and cooperative Lungs: Respirations even and unlabored, symmetrical chest expansion Eyes: PERRL Musculoskeletal: Flexion and extension of lumbar [spine] somewhat guarded secondary to pain, [antalgic gait noted] Neurological: Speech clear, no gross sensory deficit Assessment:: Degenerative disc disease of cervical and lumbar spine with cervical and lumbar radiculopathy symptoms, chronic knee pain, left shoulder pain, right foot pain Plan:: Due to the patient's complaint of seizure-like activity and being very emotional that I have recommended the patient to present to ER for evaluation. I have counseled the patient that I do believe that she needs to be seen by neurology. Patient states that she has already been through all this in the past and there was no change. We did have one of our staff members take her down to the ER for evaluation. Patient is scheduled for a drug urine screen. I have counseled staff to make sure that ER is aware of this and that we still want to get this order. I will refill the patient's [place] 7.5 mg 4 times a day and provide a 1 month supply of this medication once we have confirmed that she has done her urine drug screen. Risks and benefits of the medication have been explained in detail to the patient. The patient does understand the risk of dependence on the medication when given over a prolonged period. Patient has been advised of risks of oversedation with the prescribed medication. Narcan has been offered to the paitent in the event of oversedation. Patient has been advised that a family member should also be educated regarding administration of Narcan. The patient has been advised to consult with his/her primary care provider and pharmacist regarding drug-drug interaction of medications currently prescribed. Patient has been prescribed a controlled substance after being counseled on the medication, medication safety, and possible side effects. Opioid contract was reviewed and signed by the patient, and that they have agreed to all of the terms set forth by our compliance program. Patient has been instructed to contact the clinic with any concerns before the next appointment. Dr. Barnett has reviewed this note and agrees with this plan of care. This note was dictated using voice recognition software and make contain errors or omissions. [facility] Disclaimer: The information contained in this section may have been updated after the patient was seen, as this information can be updated by other users. Medical History Abnormal electrocardiography Abnormal stress test Dyspnea Family History Other No significant family history Social History Smoking Status: Unknown if ever smoked second hand exposure: No alcohol intake: never substance use type: denies use current occupational status: other Travel in the last 8 weeks: None household members: spouse housing: house current occupational exposures/hazards: No caffeine: Yes
[2023-12-03 14:28] VITALS: BP 154/69; PULSE 54; RESP 18; O2SAT 100; BMI 37.0
[2023-12-03 18:29] LABS: Barbiturates Screen,Urine Negative ng/ml (<200)
[2023-12-03 18:30] LABS: Amphetamine/Metha Screen,Urine Negative ng/ml (<1000); Benzodiazepines Screen,Urine Negative ng/ml (<200)
[2023-12-03 18:31] LABS: Cocaine Screen,Urine Negative ng/ml (<300)
[2023-12-03 18:32] LABS: Cannabinoid Screen,Urine Negative ng/ml (<50); Methadone Screen,Urine Negative ng/ml (<300)
[2023-12-03 18:33] LABS: Opiate Screen,Urine Positive ng/ml (<300)
[2023-12-03 18:34] LABS: Phencyclidine Screen,Urine Negative ng/ml (<25)
[2023-12-09 09:15] LABS: Codeine Negative (Cutoff=100); Hydrocodone Positive (.); Hydromorphone Negative (Cutoff=100); Morphine Negative (Cutoff=100); Opiates Positive (.)
== END 2023-12-03 23:59 | disposition home or self-care (01) ==
LOC: SC.PAIN 13:36
PROVIDERS: PCP Family Medicine; Visit Provider Nurse Practitioner Family
DX: Z79.891 Long term (current) use of opiate analgesic (principal); M50.10 Cervical disc disorder with radiculopathy, unspecified cervical region; M51.16 Intervertebral disc disorders with radiculopathy, lumbar region; M25.569 Pain in unspecified knee; G89.29 Other chronic pain; M25.512 Pain in left shoulder; M79.671 Pain in right foot
CPT/HCPCS: 80307; 80361; 80365; 99212; G0463; G0480

== ENCOUNTER 2023-12-03 14:13 | Emergency (ER) | payer MEDICARE, SELFPAY ==
[2023-12-03 14:14] VITALS: BP 132/62; PULSE 57; RESP 18; TEMP 36.6; O2SAT 98; BMI 34.7
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
[2023-12-03 14:30] VITALS: BP 135/71; PULSE 56; O2SAT 93
[2023-12-03] MEDS: KETOROLAC 30MG/ML VIAL 15 MG IV (14:40)
[2023-12-03] MEDS: ACETAMINOPHEN 1,000MG/100ML VIAL 1000 MG IV (14:40)
[2023-12-03] MEDS: DEXAMETHASONE 4MG/ML 5ML MDV 10 MG IV (14:41)
[2023-12-03] MEDS: LACTATED RINGERS 1000ML 1,000 ML 999 ML IV (14:41)
[2023-12-03 15:05] LABS: Chloride 104 mmol/L (98-107); Sodium 139 mmol/L (136-145)
[2023-12-03 15:08] LABS: Alanine Aminotransferase 65 U/L (12-78); Albumin Level 4.3 g/dl (3.5-5.0); Albumin/Globulin Ratio 1.4 (1.1-1.8); Alkaline Phosphatase 94 U/L (38-126); Aspartate Amino Transferase 64 U/L (14-36); Basophils % 0.8 % (0.1-2.0); Bilirubin,Total 0.4 mg/dl (0.2-1.3); Blood Urea Nitrogen 20 mg/dl (7-17); Calcium 9.3 mg/dl (8.4-10.2); Carbon Dioxide 27 mmol/L (22.0-30.0); Creatine Kinase 64 U/L (30-135); Creatinine Clearance Estimated 92 mL/min (50-200); Eosinophils # 0.2 K/mm3 (0.0-0.4); Eosinophils % 3.6 % (0.1-12.0); Estimated Glomerular Filt Rate 56 ml/min (>60); GFR (African American) 68 ML/MIN (>60); Glucose 93 mg/dl (74-100); Hematocrit 41.6 % (37.0-47.0); Hemoglobin 13.6 g/dL (12.2-16.2); Lymphocytes # 1.1 K/mm3 (0.7-4.5); Lymphocytes % 20.5 % (10-50); Mean Corpuscular HGB Conc 32.6 g/dL (31.8-35.4); Mean Corpuscular Hemoglobin 31.9 pg (27.0-31.2); Mean Corpuscular Volume 97.9 fl (81-99); Mean Platelet Volume 8.2 fl (7.4-10.4); Monocytes # 0.3 K/mm3 (0.1-1.0); Monocytes % 5.4 % (1.7-9.3); Neutrophils # 3.8 K/mm3 (1.8-7.8); Neutrophils % 69.8 % (37.0-80.0); Platelet Count 200 K/mm3 (142-424); Red Blood Count 4.25 M/mm3 (4.20-5.40); Red Cell Distribution Width 13.8 % (11.5-17.5); Total Protein,Serum 7.3 g/dl (6.3-8.2); White Blood Count 5.4 K/mm3 (4.8-10.8)
[2023-12-03] MEDS: METHOCARBAMOL 500MG TABLET 500 MG PO (15:15)
[2023-12-03 15:31] VITALS: BP 135/71; PULSE 56; O2SAT 99
[2023-12-03 16:01] VITALS: BP 122/57; PULSE 53; O2SAT 100
[2023-12-03 16:23] VITALS: BP 122/57; PULSE 53; RESP 15; TEMP 36.6; O2SAT 100
== END 2023-12-03 16:24 | disposition home or self-care (01) ==
PROVIDERS: Physician Assistant; Emergency Provider Emergency Medicine; PCP Family Medicine
DX: M62.830 Muscle spasm of back; M51.34 Other intervertebral disc degeneration, thoracic region; M51.35 Other intervertebral disc degeneration, thoracolumbar region; M51.36 Other intervertebral disc degeneration, lumbar region; M51.37 Other intervertebral disc degeneration, lumbosacral region; M48.02 Spinal stenosis, cervical region; M48.03 Spinal stenosis, cervicothoracic region; M48.04 Spinal stenosis, thoracic region; M48.05 Spinal stenosis, thoracolumbar region; I11.0 Hypertensive heart disease with heart failure; I50.30 Unspecified diastolic (congestive) heart failure; E03.9 Hypothyroidism, unspecified; I48.0 Paroxysmal atrial fibrillation; Z79.01 Long term (current) use of anticoagulants
CPT/HCPCS: 80053; 80307; 80361; 80365; 82550; 83735; 85025; 96361; 96374; 96375; 99212; 99284; G0463; G0480; J0131; J7120

== ENCOUNTER 2023-12-18 13:16 | Outpatient (CLI) | payer MEDICARE, SELFPAY ==
--- NOTE | 2023-12-18 13:22 | MM_ITS ---
PROCEDURE INFORMATION: Exam: MG Bilateral Screening 3D Mammography Exam date and time: 12/18/2023 1:18 PM Age: 63 years old Clinical indication: Screening examination TECHNIQUE: Imaging protocol: Bilateral Screening tomosynthesis and 2D mammography including computer-aided detection (CAD) when performed. COMPARISON: 1. MG MM DIG SCREENING MAMM BI W/CAD 02/08/2020 1:44 PM 2. MG DIG MAMM-SCREEN GENESIS 01/05/2019 10:07 AM FINDINGS: MAMMOGRAPHY: Breast composition: The breasts are almost entirely fatty. Mass: None. Architectural distortion: None. Calcifications: No suspicious calcifications. Asymmetric density: None. Skin thickening: None. Axillary adenopathy: None. IMPRESSION: No mammographic evidence of malignancy. Annual screening is recommended unless otherwise clinically indicated. ASSESSMENT: BI-RADS Category 1: Negative
== END 2023-12-18 23:59 | disposition home or self-care (01) ==
LOC: RAD 13:17
PROVIDERS: PCP Family Medicine; Visit Provider Family Medicine
DX: Z12.31 Encounter for screening mammogram for malignant neoplasm of breast (principal)
CPT/HCPCS: 77063; 77067

== ENCOUNTER 2024-01-07 11:36 | Outpatient (POV) | payer MEDICARE, SELFPAY ==
--- OUTSIDE RECORDS SUMMARY | 2024-01-07 11:38 | XMS_ITS | Encounter Summary ---
Author Name Unknown Organization [facility] Address [address] [place] [id number] Encounter Details Date Type Department Care Team Description 2023-12-29 Telephone [facility] [address] [place] [address] Kaleigh Camacho The [facility] care team was unable to complete a Medication Reconciliation with the patient following discharge. ASSESSMENT No Information TREATMENT PLAN No Information
--- OUTSIDE RECORDS SUMMARY | 2024-01-07 11:39 | XMS_ITS | Encounter Summary ---
Author Name Unknown Organization [facility] Address [address] [place] [id number] Encounter Details Date Type Department Care Team Description 2023-12-29 Telephone [facility] [address] [place] [address] Kaleigh Camacho The [facility] care team was unable to complete a Medication Reconciliation with the patient following discharge. ASSESSMENT No Information TREATMENT PLAN No Information
--- NOTE | 2024-01-07 12:06 | A.OFFVIS_ITS ---
[facility] Disclaimer: The information contained in this section may have been updated after the patient was seen, as this information can be updated by other users. Medical History Abnormal stress test Abnormal electrocardiography Dyspnea Family History Other No significant family history Social History Smoking Status: Former smoker second hand exposure: No alcohol intake: never substance use type: denies use current occupational status: other Travel in the last 8 weeks: None household members: spouse housing: house current occupational exposures/hazards: No caffeine: Yes PM Subjective & Objective Subjective Subjective:: Patient is a pleasant 63-year-old female who presents today for medication refill and follow-up. Today she rates her pain a 8 out of 10. Patient denies any new trauma or injury. Patient is currently managed with [place] 7.5 mg 4 times a day from our office and pregabalin from her primary care. She denies any side effects from this medication. Her Tavo has been reviewed and is appropriate. Review of Systems: General: No recent weight changes, no fever, no sleep disturbances Respiratory: No cough, no shortness of air, no recurring pulmonary infections Cardiovascular/peripheral vascular: No chest pain, no palpitations, no edema, no shortness of breath Gastrointestinal: No new onset incontinence, normal bowel movements reported Genitourinary: No new onset incontinence Musculoskeletal: Low back pain Psychiatric: [Normal mood/affect] Neurological: [Denies weakness in extremities], [denies balance issues] Pain at rest (0-10 scale): 8 Objective Objective:: Physical Exam: General: Alert and oriented x3, no acute distress, pleasant and cooperative Lungs: Respirations even and unlabored, symmetrical chest expansion Eyes: PERRL Musculoskeletal: Flexion and extension of lumbar [spine] somewhat guarded secondary to pain, [antalgic gait noted] Neurological: Speech clear, no gross sensory deficit Has patient had previous pain injection?: No Conservative treatment options previously tried: Home exercise plan Length of treatment: Longer than 6 weeks and Prescription medications Length of treatment: Longer than 6 weeks Meds Home Medications and Allergies Home Medications Medication Instructions Recorded Confirmed Type cholecalciferol (vitamin D3) 25 1,000 unit PO DAILY Supplement 07/23/17 12/30/23 History mcg (1,000 unit) capsule venlafaxine 75 mg capsule,extended 150 mg PO BID Depression 07/23/17 12/30/23 History release 24 hr zinc acetate 50 mg (zinc) capsule 50 mg PO DAILY Supplement 07/23/17 12/30/23 History (Galzin) topiramate 50 mg tablet 50 mg PO BID HEADACHES 08/20/17 12/30/23 History ferrous sulfate 325 mg (65 mg 325 mg PO DAILY Supplement 05/06/18 12/30/23 History iron) tablet pramipexole 1 mg tablet 1 mg PO TID restless legs 05/06/18 12/30/23 History pantoprazole 40 mg tablet,delayed 40 mg PO DAILY stomach 05/28/20 12/30/23 History release vitamin B complex-folic acid ER 1 tab PO DAILY Supplement 04/26/21 12/30/23 History 400 mcg tablet,extended release potassium chloride 10 mEq 10 meq PO DAILY Supplement 05/17/21 12/30/23 History capsule,extended release metoprolol succinate 25 mg 25 mg PO DAILY BLOOD PRESSURE 10/01/21 12/30/23 History tablet,extended release 24 hr rivaroxaban 20 mg tablet 20 mg PO DAILY Blood thinner 10/01/21 12/30/23 History nitroglycerin 0.4 mg sublingual 0.4 mg sublingual Q5-15M PRN chest 04/29/23 12/30/23 Rx tablet pain #30 tabs ascorbic acid (vitamin C) 500 mg 0.5 g PO DAILY 06/11/23 12/30/23 History tablet (Vitamin C) cyanocobalamin (vitamin B-12) 500 500 mcg PO DAILY 06/11/23 12/30/23 History mcg tablet hydrocodone 7.5 mg-acetaminophen 1 tab PO QID #120 tabs 12/04/23 12/30/23 Rx 325 mg tablet alendronate 70 mg tablet 70 mg PO WEEKLY 12/30/23 12/30/23 History bumetanide 1 mg tablet 1 mg PO BID PRN Fluid 12/30/23 12/30/23 History levothyroxine 137 mcg tablet 137 mcg PO DAILY 12/30/23 12/30/23 History New Prescriptions to Start Prescriptions: Allergies Allergy/AdvReac Type Severity Reaction Status Date / Time gabapentin Allergy Verified 12/30/23 10:57 hyaluronic acid AdvReac Severe Verified 12/30/23 10:57 [From Supartz] Assessment and Plan *Assessment and plan (1) Lumbar radiculopathy: Status: Chronic Category: Medical Code(s): M54.16 - Radiculopathy, lumbar region (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 Qualifiers: Spinal osteoarthritis complication: with radiculopathy Qualified Code(s): M47.26 - Other spondylosis with radiculopathy, lumbar region Category: Medical Code(s): M47.816 - Spondylosis without myelopathy or radiculopathy, lumbar region Plan I will refill the patient's [place] and provide a 1 month supply of this medication. Patient will return to clinic in 1 month for reevaluation of symptoms and plan of care. Risks and benefits of the medication have been explained in detail to the patient. The patient does understand the risk of dependence on the medication when given over a prolonged period. Patient has been advised of risks of oversedation with the prescribed medication. Narcan has been offered to the paitent in the event of oversedation. Patient has been advised that a family member should also be educated regarding administration of Narcan. The patient has been advised to consult with his/her primary care provider and pharmacist regarding drug-drug interaction of medications currently prescribed. Patient has been prescribed a controlled substance after being counseled on the medication, medication safety, and possible side effects. Opioid contract was reviewed and signed by the patient, and that they have agreed to all of the terms set forth by our compliance program. Patient has been instructed to contact the clinic with any concerns before the next appointment. Dr. Barnett has reviewed this note and agrees with this plan of care. This note was dictated using voice recognition software and make contain errors or omissions.
[2024-01-07 12:13] VITALS: BP 156/76; PULSE 54; RESP 16; O2SAT 97; BMI 35.2
== END 2024-01-07 23:59 | disposition home or self-care (01) ==
PROVIDERS: PCP Family Medicine; Visit Provider Nurse Practitioner Family
DX: M47.26 Other spondylosis with radiculopathy, lumbar region (principal); G89.29 Other chronic pain
CPT/HCPCS: 99212; G0463

== ENCOUNTER 2024-02-05 10:21 | Outpatient (POV) | payer MEDICARE, SELFPAY ==
--- OUTSIDE RECORDS SUMMARY | 2024-02-05 10:24 | XMS_ITS ---
Author Organization [facility] No information ASSESSMENT No information CHIEF COMPLAINT No information Immunizations Date Vaccine Dateadministered Timeadministered Vaccinecode Dose Duedate Cptcode Cvxcode Administeredby 03/07 00:00 :00 flucelva x quad 2 years and up 03/07/2021 11:51:00 11:51:00 [id number] .50 12/28/19 00:00:00 [id number] Elzbieta Mcdonald OBJECTIVE DATA No information PHYSICAL EXAMINATION No information TREATMENT PLAN No information PROBLEMS No information RESULTS No information REVIEW OF SYSTEMS No information SUBJECTIVE DATA No information VITAL SIGNS No information MEDICATIONS No information
[2024-02-05 10:28] VITALS: BP 144/62; PULSE 53; RESP 16; O2SAT 100; BMI 35.2
--- NOTE | 2024-02-05 10:32 | A.OFFVIS_ITS ---
[facility] Disclaimer: The information contained in this section may have been updated after the patient was seen, as this information can be updated by other users. Medical History Abnormal stress test Abnormal electrocardiography Dyspnea Family History Other No significant family history Social History Smoking Status: Former smoker second hand exposure: No alcohol intake: never substance use type: denies use current occupational status: retired Travel in the last 8 weeks: None household members: spouse housing: house current occupational exposures/hazards: No caffeine: Yes PM Subjective & Objective Subjective Subjective:: Patient is a pleasant 63-year-old female who presents today for medication refill and 1 month follow-up. Today she rates her pain a 9 out of 10. Patient denies any new trauma or injury. She does state that she has gone into A-fib a couple of times this week so it is not as great of a week. She is currently managed with [place] 7.5 mg 4 times a day and was taking pregabalin from her primary care. Patient does state that she felt like she was having a lot more grogginess and stopped taking the pregabalin temporarily. She states that she does feel like it is not as bad as what it had been. She is prescribed diazepam from an outside provider. Her Tavo has been reviewed and is appropriate. Review of Systems: General: No recent weight changes, no fever, no sleep disturbances Respiratory: No cough, no shortness of air, no recurring pulmonary infections Cardiovascular/peripheral vascular: No chest pain, no palpitations, no edema, no shortness of breath Gastrointestinal: No new onset incontinence, normal bowel movements reported Genitourinary: No new onset incontinence Musculoskeletal: Low back pain Psychiatric: [Normal mood/affect] Neurological: [Denies weakness in extremities], [denies balance issues] Pain at rest (0-10 scale): 9 Objective Objective:: Physical Exam: General: Alert and oriented x3, no acute distress, pleasant and cooperative Lungs: Respirations even and unlabored, symmetrical chest expansion Eyes: PERRL Musculoskeletal: Flexion and extension of lumbar [spine] somewhat guarded secondary to pain, [antalgic gait noted] Neurological: Speech clear, no gross sensory deficit Has patient had previous pain injection?: No Conservative treatment options previously tried: Prescription medications Length of treatment: Longer than 12 weeks Meds Home Medications and Allergies Home Medications ?Medication ?Instructions ?Recorded ?Confirmed ?Type cholecalciferol (vitamin D3) 25 1,000 unit PO DAILY Supplement 07/23/17 02/05/24 History mcg (1,000 unit) capsule venlafaxine 75 mg capsule,extended 150 mg PO BID Depression 07/23/17 02/05/24 History release 24 hr zinc acetate 50 mg (zinc) capsule 50 mg PO DAILY Supplement 07/23/17 02/05/24 History (Galzin) topiramate 50 mg tablet 50 mg PO BID HEADACHES 08/20/17 02/05/24 History ferrous sulfate 325 mg (65 mg 325 mg PO DAILY Supplement 05/06/18 02/05/24 History iron) tablet pramipexole 1 mg tablet 1 mg PO TID restless legs 05/06/18 02/05/24 History pantoprazole 40 mg tablet,delayed 40 mg PO DAILY stomach 05/28/20 02/05/24 History release vitamin B complex-folic acid ER 1 tab PO DAILY Supplement 04/26/21 02/05/24 History 400 mcg tablet,extended release potassium chloride 10 mEq 10 meq PO DAILY Supplement 05/17/21 02/05/24 History capsule,extended release metoprolol succinate 25 mg 25 mg PO DAILY BLOOD PRESSURE 10/01/21 02/05/24 History tablet,extended release 24 hr rivaroxaban 20 mg tablet 20 mg PO DAILY Blood thinner 10/01/21 02/05/24 History nitroglycerin 0.4 mg sublingual 0.4 mg sublingual Q5-15M PRN chest 04/29/23 02/05/24 Rx tablet pain #30 tabs ascorbic acid (vitamin C) 500 mg 0.5 g PO DAILY 06/11/23 02/05/24 History tablet (Vitamin C) cyanocobalamin (vitamin B-12) 500 500 mcg PO DAILY 06/11/23 02/05/24 History mcg tablet alendronate 70 mg tablet 70 mg PO WEEKLY 12/30/23 02/05/24 History bumetanide 1 mg tablet 1 mg PO BID PRN Fluid 12/30/23 02/05/24 History levothyroxine 137 mcg tablet 137 mcg PO DAILY 12/30/23 02/05/24 History hydrocodone 7.5 mg-acetaminophen 1 tab PO QID #120 tabs 01/07/24 02/05/24 Rx 325 mg tablet New Prescriptions to Start Prescriptions: Allergies Allergy/AdvReac Type Severity Reaction Status Date / Time gabapentin Allergy Verified 12/30/23 10:57 hyaluronic acid AdvReac Severe Verified 12/30/23 10:57 [From Supartz] Assessment and Plan *Assessment and plan (1) Degenerative joint disease (DJD) of lumbar spine: Status: Chronic Qualifiers: Spinal osteoarthritis complication: with radiculopathy Qualified Code(s): M47.26 - Other spondylosis with radiculopathy, lumbar region Category: Medical Code(s): M47.816 - Spondylosis without myelopathy or radiculopathy, lumbar region (2) Lumbar radiculopathy: Status: Chronic Category: Medical Code(s): M54.16 - Radiculopathy, lumbar region Plan We will refill the patient's [place] and provide a 1 month supply of this medication. Patient will return to clinic in 1 month for reevaluation of symptoms and plan of care. Risks and benefits of the medication have been explained in detail to the patient. The patient does understand the risk of dependence on the medication when given over a prolonged period. Patient has been advised of risks of oversedation with the prescribed med ication. Narcan has been offered to the paitent in the event of oversedation. Patient has been advised that a family member should also be educated regarding administration of Narcan. The patient has been advised to consult with his/her primary care provider and pharmacist regarding drug-drug interaction of medications currently prescribed. Patient has been prescribed a controlled substance after being counseled on the medication, medication safety, and possible side effects. Opioid contract was reviewed and signed by the patient, and that they have agreed to all of the terms set forth by our compliance program. Patient has been instructed to contact the clinic with any concerns before the next appointment. Dr. Barnett has reviewed this note and agrees with this plan of care. This note was dictated using voice recognition software and make contain errors or omissions.
== END 2024-02-05 23:59 | disposition home or self-care (01) ==
PROVIDERS: PCP Family Medicine; Visit Provider Nurse Practitioner Family
DX: M47.26 Other spondylosis with radiculopathy, lumbar region (principal); Z79.899 Other long term (current) drug therapy; Z87.891 Personal history of nicotine dependence; Z96.82 Presence of neurostimulator
CPT/HCPCS: 99212; G0463

== ENCOUNTER 2024-02-13 10:27 | Outpatient (CLI) | payer MEDICARE, SELFPAY ==
--- NOTE | 2024-02-13 10:32 | CT_ITS ---
FINAL REPORT CLINICAL HISTORY: .PAIN, SCOLIOSIS COMPARISON: None FINDINGS: Axial CT images of the thoracic spine were obtained without contrast. Sagittal and coronal reformatted images were also obtained. This study was performed with techniques to keep radiation doses as low as reasonably achievable (ALARA). Individualized dose reduction techniques using automated exposure control or adjustment of mA and/or kV according to the patient's size were employed. Dextroscoliosis is present. There is mild and moderate degenerative change in the thoracic spine, as well as postoperative change of fusion in the lower cervical spine extending to the T2 level. There are mild T3 and T4 superior endplate fractures, favor chronic. There is moderate T11 superior endplate compression fracture, also favor chronic. There is no evidence of significant canal stenosis. No paraspinous soft tissue abnormality is identified. Multilevel osteophytes are present. Note is made of postoperative changes in the stomach. IMPRESSION: Compression fractures, mild, in the T3 and T4 superior endplates, favor chronic. There is also a moderate T11 superior endplate compression fracture, also favor chronic. Postoperative changes in the lower cervical spine extending to the T2 level. No significant canal stenosis and no definite paraspinal abnormalities are seen. Reviewed, Interpreted and Dictated by Woody Chopra III, MD Transcribed by Millicent White Authenticated and [facility]
--- NOTE | 2024-02-13 10:34 | MR_ITS ---
FINAL REPORT CLINICAL HISTORY: LBP SCOLIOSIS FINDINGS: Multiplanar MR imaging of the lumbar spine was performed without contrast. On the sagittal T2-weighted images, disc degeneration is seen at multiple levels. Note is made of levoscoliosis. There is 10 mm of anterolisthesis of L4 on 5. There is 6 mm of anterolisthesis of L5 on S1. Endplate changes are seen at multiple levels, greatest at L5-S1. Note is made of several hemangiomas. There is no evidence of fracture. The conus has an unremarkable appearance. T12-L1: There is no significant canal stenosis or neural foraminal narrowing. L1-2: An annular disc bulge is present with mild bilateral neural foraminal narrowing. L2-3: An annular bulge is present. Facet arthropathy and osteophytes are present. There is a small right paracentral disc protrusion with moderate right and mild left neural foraminal narrowing. L3-4: An annular bulge is present. Facet arthropathy and osteophytes are present. There is severe right and mild left neural foraminal narrowing. L4-5: There is severe irregularity at the inferior L4 and superior L5 endplates which are felt to represent severe endplate changes. There is no convincing evidence of discitis or osteomyelitis. There is severe, right greater than left neural foraminal narrowing. There is severe central canal stenosis with an AP diameter of the thecal sac of 3 mm. L5-S1: An annular bulge and facet arthropathy are present. There is moderate right and severe left neural foraminal narrowing. IMPRESSION: Multilevel degenerative disc disease and spondylosis.. Severe central canal stenosis at L4-5. Small right paracentral disc protrusion at L2-3. Reviewed, Interpreted and Dictated by Woody Chopra III, MD Transcribed by Lis Parisi Authenticated and [facility]
--- NOTE | 2024-02-13 10:34 | CT_ITS ---
FINAL REPORT TECHNIQUE: Axial imaging of the lumbar spine was obtained without contrast. Sagittal and coronal reformatted images were also obtained and reviewed. This study was performed with techniques to keep radiation doses as low as reasonably achievable (ALARA). Individualized dose reduction techniques using automated exposure control or adjustment of mA and/or kV according to the patient's size were employed. CLINICAL HISTORY: .PAIN, SCOLIOSIS COMPARISON: CT pelvis 09/21/2023. FINDINGS: Levoscoliosis and moderate to severe degenerative changes noted in the lumbar spine. There is 13 mm of left lateral subluxation of L4 on L5, as well as 7 mm of anterolisthesis of L5 on S1, secondary to changes of facet arthropathy. There is narrowing and marked irregularity of the inferior L4 and superior L5 endplates, which is stable when compared to a prior CT of the pelvis dated 09/21/2023. These changes may represent severe degenerative endplate change or changes of chronic discitis/osteomyelitis. L1-L2: An annular bulge is present without evidence of central canal stenosis or neural foraminal narrowing. L2-L3: An annular bulge is present with facet arthropathy and osteophytes. There is moderate right and mild left neural foraminal narrowing. L3-L4: An annular bulge is present with facet arthropathy and osteophytes. There is severe left and mild right neuroforaminal narrowing, as well as mild canal stenosis with an AP canal diameter of 8 mm. L4-L5: An annular bulge is present with facet arthropathy and osteophytes, and marked endplate irregularity as described above. There is severe right and moderate to severe left neural foraminal narrowing, severe right lateral recess narrowing, and severe canal stenosis with an AP canal diameter of 3 mm. L5-S1: An annular bulge is present with facet arthropathy and osteophytes, and as previously noted 7 mm of anterolisthesis of L5 on S1. There is moderate right and severe left neuroforaminal narrowing. IMPRESSION: Multilevel lumbar degenerative changes present as described above, with multilevel neuroforaminal narrowing, moderate to severe, as described above. At the L4-5 level there is marked irregularity and narrowing of the inferior L4 and superior L5 endplates, that may represent severe degenerative change versus chronic discitis/osteomyelitis. There is severe canal stenosis at this level as well as moderate to severe bilateral neural foraminal narrowing. Reviewed, Interpreted and Dictated by Woody Chopra III, MD Transcribed by Millicent White Authenticated and . [facility]
== END 2024-02-13 23:59 | disposition home or self-care (01) ==
LOC: RAD 10:30
PROVIDERS: PCP Family Medicine; Visit Provider Orthopaedic Surgery
DX: M41.34 Thoracogenic scoliosis, thoracic region (principal); M41.86 Other forms of scoliosis, lumbar region; M54.16 Radiculopathy, lumbar region
CPT/HCPCS: 72128; 72131; 72148

== ENCOUNTER 2024-03-08 15:01 | Outpatient (POV) | payer MEDICARE, SELFPAY ==
[2024-03-08 15:20] VITALS: BP 120/64; PULSE 60; RESP 16; O2SAT 100; BMI 35.0
--- NOTE | 2024-03-08 15:27 | EXP.PAIN.SOA ---
[facility] Disclaimer: The information contained in this section may have been updated after the patient was seen, as this information can be updated by other users. Medical History Abnormal stress test Abnormal electrocardiography Dyspnea Family History Other No significant family history Social History Smoking Status: Former smoker second hand exposure: No alcohol intake: never substance use type: denies use current occupational status: other Travel in the last 8 weeks: None household members: spouse housing: house current occupational exposures/hazards: No caffeine: Yes PM Subjective & Objective Subjective Subjective:: Patient is a pleasant 63-year-old female who presents today for medication refill and follow-up. Today she rates her pain an 8 out of 10. Patient does state that she managed to hurt her left knee on Friday. Patient states she is not really sure what exactly she did that they had company over with all the family and that she did end up falling asleep and woke up with worsening pain on that leg. Patient states she did immediately go and ice the area and does have a small bruise but the pain is getting better. Patient is currently managed with [place] 7.5 mg 4 times a day from our office and pregabalin was from her primary care. Patient did stop taking this due to additional dizziness. Her Tavo has been reviewed and is appropriate. Review of Systems: General: No recent weight changes, no fever, no sleep disturbances Respiratory: No cough, no shortness of air, no recurring pulmonary infections Cardiovascular/peripheral vascular: No chest pain, no palpitations, no edema, no shortness of breath Gastrointestinal: No new onset incontinence, normal bowel movements reported Genitourinary: No new onset incontinence Musculoskeletal: Low back pain, left knee pain Psychiatric: [Normal mood/affect] Neurological: [Denies weakness in extremities], [denies balance issues] Pain at rest (0-10 scale): 8 Objective Objective:: Physical Exam: General: Alert and oriented x3, no acute distress, pleasant and cooperative Lungs: Respirations even and unlabored, symmetrical chest expansion Eyes: PERRL Musculoskeletal: Flexion and extension of lumbar [spine] somewhat guarded secondary to pain, [antalgic gait noted] Neurological: Speech clear, no gross sensory deficit Has patient had previous pain injection?: No Conservative treatment options previously tried: Home exercise plan Length of treatment: Longer than 6 weeks Meds Home Medications and Allergies Home Medications ?Medication ?Instructions ?Recorded ?Confirmed ?Type cholecalciferol (vitamin D3) 25 1,000 unit PO DAILY Supplement 07/23/17 03/08/24 History mcg (1,000 unit) capsule venlafaxine 75 mg capsule,extended 150 mg PO BID Depression 07/23/17 03/08/24 History release 24 hr zinc acetate 50 mg (zinc) capsule 50 mg PO DAILY Supplement 07/23/17 03/08/24 History (Galzin) topiramate 50 mg tablet 50 mg PO BID HEADACHES 08/20/17 03/08/24 History ferrous sulfate 325 mg (65 mg 325 mg PO DAILY Supplement 05/06/18 03/08/24 History iron) tablet pramipexole 1 mg tablet 1 mg PO TID restless legs 05/06/18 03/08/24 History pantoprazole 40 mg tablet,delayed 40 mg PO DAILY stomach 05/28/20 03/08/24 History release vitamin B complex-folic acid ER 1 tab PO DAILY Supplement 04/26/21 03/08/24 History 400 mcg tablet,extended release potassium chloride 10 mEq 10 meq PO DAILY Supplement 05/17/21 03/08/24 History capsule,extended release metoprolol succinate 25 mg 25 mg PO DAILY BLOOD PRESSURE 10/01/21 03/08/24 History tablet,extended release 24 hr rivaroxaban 20 mg tablet 20 mg PO DAILY Blood thinner 10/01/21 03/08/24 History nitroglycerin 0.4 mg sublingual 0.4 mg sublingual Q5-15M PRN chest 04/29/23 03/08/24 Rx tablet pain #30 tabs ascorbic acid (vitamin C) 500 mg 0.5 g PO DAILY 06/11/23 03/08/24 History tablet (Vitamin C) cyanocobalamin (vitamin B-12) 500 500 mcg PO DAILY 06/11/23 03/08/24 History mcg tablet alendronate 70 mg tablet 70 mg PO WEEKLY 12/30/23 03/08/24 History bumetanide 1 mg tablet 1 mg PO BID PRN Fluid 12/30/23 03/08/24 History levothyroxine 137 mcg tablet 137 mcg PO DAILY 12/30/23 03/08/24 History hydrocodone 7.5 mg-acetaminophen 1 tab PO QID #120 tabs 02/05/24 03/08/24 Rx 325 mg tablet New Prescriptions to Start Prescriptions: Allergies Allergy/AdvReac Type Severity Reaction Status Date / Time gabapentin Allergy Verified 12/30/23 10:57 hyaluronic acid AdvReac Severe Verified 12/30/23 10:57 [From Supartz] Assessment and Plan *Assessment and plan (1) Spinal stenosis of lumbar region: Status: Chronic Category: Medical Code(s): M48.061 - Spinal stenosis, lumbar region without neurogenic claudication (2) Lumbar radiculopathy: Status: Chronic Category: Medical Code(s): M54.16 - Radiculopathy, lumbar region (3) Low back pain: Status: Acute Qualifiers: Back pain laterality: midline Chronicity: chronic Sciatica laterality: bilateral sciatica Sciatica presence: with sciatica Qualified Code(s): M54.41 - Lumbago with sciatica, right side; M54.42 - Lumbago with sciatica, left side; G89.29 - Other chronic pain Category: Medical Code(s): M54.5 - Low back pain Plan I will refill the patient's [place] and provide a 1 month supply of this medication. Patient will return to clinic in 1 month for reevaluation of symptoms and plan of care. Risks and benefits of the medication have been explained in detail to the patient. The patient does understand the risk of dependence on the medication when given over a prolonged period. Patient has been advised of risks of oversedation with the prescribed medication. Narcan has been offered to the paitent in the event of oversedation. Patient has been advised that a family member should also be educated regarding administration of Narcan. The patient has been advised to consult with his/her primary care provider and pharmacist regarding drug-drug interaction of medications currently prescribed. Patient has been prescribed a controlled substance after being counseled on the medication, medication safety, and possible side effects. Opioid contract was reviewed and signed by the patient, and that they have agreed to all of the terms set forth by our compliance program. Patient has been instructed to contact the clinic with any concerns before the next appointment. Dr. Barnett has reviewed this note and agrees with this plan of care. This note was dictated using voice recognition software and make contain errors or omissions.
[2024-03-08 17:49] LABS: Calcium 8.6 mg/dl (8.4-10.2)
[2024-03-08 18:04] LABS: 25-OH Vitamin D, Total 56.5 ng/mL (30-100)
== END 2024-03-08 23:59 | disposition home or self-care (01) ==
PROVIDERS: Orthopaedic Surgery; PCP Family Medicine; Visit Provider Nurse Practitioner Family
DX: M48.061 Spinal stenosis, lumbar region without neurogenic claudication (principal); M54.16 Radiculopathy, lumbar region; M54.41 Lumbago with sciatica, right side; M54.42 Lumbago with sciatica, left side; G89.29 Other chronic pain; E55.9 Vitamin D deficiency, unspecified; Z96.82 Presence of neurostimulator; Z87.891 Personal history of nicotine dependence; Z79.899 Other long term (current) drug therapy
CPT/HCPCS: 36415; 82306; 82310; 99212; G0463

== ENCOUNTER 2024-03-23 09:12 | Outpatient (CLI) | payer MEDICARE, SELFPAY ==
--- NOTE | 2024-03-23 09:17 | XR_ITS ---
FINAL REPORT TECHNIQUE: Bone densitometry calculations of the lumbar spine and left hip were obtained. CLINICAL HISTORY: SCREENING FINDINGS: Using L1-4, the bone mineral density of the spine is 0.815 g/cm2, corresponding to T-score of -2.1. Using the left hip, the bone mineral density of the femoral neck is 0.614 g/cm2, corresponding to a T-score of -2.1. Using the right hip, the bone mineral density of the femoral neck is 0.609 g/cm?, corresponding to a T-score of -2.2. NOTE: T-score: Standard deviation compared with peak bone mass of young adult mean. *Following the recommendations of the International Society of Bone densitometry, classification of hip BMD is based on the lower of two T-scores; total hip or femoral neck. IMPRESSION: Diminished bone mineral density of the lumbar spine and bilateral hips consistent with osteopenia. Reviewed, Interpreted and Dictated by Nader Garcia MD Transcribed by Millicent White Authenticated and [facility]
== END 2024-03-23 23:59 | disposition home or self-care (01) ==
LOC: RAD 09:13
PROVIDERS: PCP Family Medicine; Visit Provider Orthopaedic Surgery
DX: M85.89 Other specified disorders of bone density and structure, multiple sites (principal); M54.50 Low back pain, unspecified
CPT/HCPCS: 77080

== ENCOUNTER 2024-04-01 14:48 | Outpatient (POV) | payer MEDICARE, SELFPAY ==
--- NOTE | 2024-04-01 15:01 | A.OFFVIS_ITS ---
[facility] Disclaimer: The information contained in this section may have been updated after the patient was seen, as this information can be updated by other users. Medical History Abnormal stress test Abnormal electrocardiography Dyspnea Family History Other No significant family history Social History Smoking Status: Former smoker second hand exposure: No alcohol intake: never substance use type: denies use current occupational status: other Travel in the last 8 weeks: None household members: spouse housing: house current occupational exposures/hazards: No caffeine: Yes PM Subjective & Objective Subjective Subjective:: Patient is a pleasant 63-year-old female who presents today for medication refill. Today she rates her pain an 9 out of 10. She denies any new falls or injuries. She does state from her last visit she has been to see Dr. Álvarez at regarding her worsening scoliosis. She states she is scheduled to see him back on 19 April. She states he did think that there was surgical intervention available as an option. Patient states she continues to have worsening numbness in her hands and her feet and feels more more unsteady when she is up walking. Patient does present today in wheelchair to help with ambulation. She is currently managed with [place] 7.5 mg 4 times a day from our office. She denies any side effects from this medication. She does state that it helps ease some of her pains. Her Tavo has been reviewed and is appropriate. Review of Systems: General: No recent weight changes, no fever, no sleep disturbances Respiratory: No cough, no shortness of air, no recurring pulmonary infections Cardiovascular/peripheral vascular: No chest pain, no palpitations, no edema, no shortness of breath Gastrointestinal: No new onset incontinence, normal bowel movements reported Genitourinary: No new onset incontinence Musculoskeletal: Low back pain Psychiatric: [Normal mood/affect] Neurological: [Denies weakness in extremities], [denies balance issues] Pain at rest (0-10 scale): 9 Objective Objective:: Physical Exam: General: Alert and oriented x3, no acute distress, pleasant and cooperative Lungs: Respirations even and unlabored, symmetrical chest expansion Eyes: PERRL Musculoskeletal: Flexion and extension of lumbar [spine] somewhat guarded secondary to pain, [antalgic gait noted] Neurological: Speech clear, no gross sensory deficit Has patient had previous pain injection?: No Conservative treatment options previously tried: Home exercise plan Length of treatment: Longer than 6 weeks Meds Home Medications and Allergies Home Medications ?Medication ?Instructions ?Recorded ?Confirmed ?Type cholecalciferol (vitamin D3) 25 1,000 unit PO DAILY Supplement 07/23/17 03/08/24 History mcg (1,000 unit) capsule venlafaxine 75 mg capsule,extended 150 mg PO BID Depression 07/23/17 03/08/24 History release 24 hr zinc acetate 50 mg (zinc) capsule 50 mg PO DAILY Supplement 07/23/17 03/08/24 History (Galzin) topiramate 50 mg tablet 50 mg PO BID HEADACHES 08/20/17 03/08/24 History ferrous sulfate 325 mg (65 mg 325 mg PO DAILY Supplement 05/06/18 03/08/24 History iron) tablet pramipexole 1 mg tablet 1 mg PO TID restless legs 05/06/18 03/08/24 History pantoprazole 40 mg tablet,delayed 40 mg PO DAILY stomach 05/28/20 03/08/24 History release vitamin B complex-folic acid ER 1 tab PO DAILY Supplement 04/26/21 03/08/24 History 400 mcg tablet,extended release potassium chloride 10 mEq 10 meq PO DAILY Supplement 05/17/21 03/08/24 History capsule,extended release metoprolol succinate 25 mg 25 mg PO DAILY BLOOD PRESSURE 10/01/21 03/08/24 History tablet,extended release 24 hr rivaroxaban 20 mg tablet 20 mg PO DAILY Blood thinner 10/01/21 03/08/24 History nitroglycerin 0.4 mg sublingual 0.4 mg sublingual Q5-15M PRN chest 04/29/23 03/08/24 Rx tablet pain #30 tabs ascorbic acid (vitamin C) 500 mg 0.5 g PO DAILY 06/11/23 03/08/24 History tablet (Vitamin C) cyanocobalamin (vitamin B-12) 500 500 mcg PO DAILY 06/11/23 03/08/24 History mcg tablet alendronate 70 mg tablet 70 mg PO WEEKLY 12/30/23 03/08/24 History bumetanide 1 mg tablet 1 mg PO BID PRN Fluid 12/30/23 03/08/24 History levothyroxine 137 mcg tablet 137 mcg PO DAILY 12/30/23 03/08/24 History hydrocodone 7.5 mg-acetaminophen 1 tab PO QID #120 tabs 03/08/24 Rx 325 mg tablet New Prescriptions to Start Prescriptions: Allergies Allergy/AdvReac Type Severity Reaction Status Date / Time gabapentin Allergy Verified 12/30/23 10:57 hyaluronic acid AdvReac Severe Verified 12/30/23 10:57 [From Supartz] Assessment and Plan *Assessment and plan (1) Degenerative joint disease (DJD) of lumbar spine: Status: Chronic Qualifiers: Spinal osteoarthritis complication: with radiculopathy Qualified Code(s): M47.26 - Other spondylosis with radiculopathy, lumbar region Category: Medical Code(s): M47.816 - Spondylosis without myelopathy or radiculopathy, lumbar region Plan We will refill the patient's [place] and provide a 1 month supply of this medication. Patient will return to clinic in 1 month for reevaluation of symptoms and plan of care. Risks and benefits of the medication have been explained in detail to the patient. The patient does understand the risk of dependence on the medication when given over a prolonged period. Patient has been advised of risks of oversedation with the prescribed medication. Narcan has been offered to the paitent in the event of oversedation. Patient has been advised that a family member should also be educated regarding administration of Narcan. The patient has been advised to consult with his/her primary care provider and pharmacist regarding drug-drug interaction of medications currently prescribed. Patient has been prescribed a controlled substance after being counseled on the medication, medication safety, and possible side effects. Opioid contract was reviewed and signed by the patient, and that they have agreed to all of the terms set forth by our compliance program. Patient has been instructed to contact the clinic with any concerns before the next appointment. Dr. Barnett has reviewed this note and agrees with this plan of care. This note was dictated using voice recognition software and make contain errors or omissions.
[2024-04-01 15:08] VITALS: BP 134/70; PULSE 58; RESP 16; O2SAT 99; BMI 40.9
== END 2024-04-01 23:59 | disposition home or self-care (01) ==
PROVIDERS: PCP Family Medicine; Visit Provider Nurse Practitioner Family
DX: M47.26 Other spondylosis with radiculopathy, lumbar region (principal); Z96.82 Presence of neurostimulator; Z87.891 Personal history of nicotine dependence; Z79.899 Other long term (current) drug therapy
CPT/HCPCS: 99212; G0463

== ENCOUNTER 2024-05-03 13:38 | Outpatient (POV) | payer MEDICARE, SELFPAY ==
--- NOTE | 2024-05-03 13:58 | EXP.PAIN.SOA ---
[facility] Disclaimer: The information contained in this section may have been updated after the patient was seen, as this information can be updated by other users. Medical History Abnormal stress test Abnormal electrocardiography Dyspnea Family History Other No significant family history Social History Smoking Status: Former smoker second hand exposure: No alcohol intake: never substance use type: denies use current occupational status: other Travel in the last 8 weeks: None household members: spouse housing: house current occupational exposures/hazards: No caffeine: Yes PM Subjective & Objective Subjective Subjective:: Patient is a pleasant 63-year-old female who presents today for 1 month follow-up and medication refill. Today she rates her pain a 7 out of 10. She denies any new trauma or injury. She does state that she continues to have chronic pain throughout her back and difficulty with her legs. She does present today in wheelchair. She does state from her last visit she did meet with Dr. Henri Traore they are in [place] and they are recommending surgery. 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 She states that he told her that she had been in a wheelchair within 2 years if she does not proceed forward with this. She states that she still does not know quite what she wants to do. She feels like she still has a lot of issues with feeling off balance and that her legs are going to give out. Patient is currently managed with [place] 7.5 mg 4 times a day from our office but states that she really does not feel like this is working that great. She states there are some days she does not even bother taking it because it just does not seem to be helping. Her Tavo has been reviewed and is appropriate. Review of Systems: General: No recent weight changes, no fever, no sleep disturbances Respiratory: No cough, no shortness of air, no recurring pulmonary infections Cardiovascular/peripheral vascular: No chest pain, no palpitations, no edema, no shortness of breath Gastrointestinal: No new onset incontinence, normal bowel movements reported Genitourinary: No new onset incontinence Musculoskeletal: Low back pain, leg pain Psychiatric: [Normal mood/affect] Neurological: [Denies weakness in extremities], [denies balance issues] Pain at rest (0-10 scale): 7 Objective Objective:: Physical Exam: General: Alert and oriented x3, no acute distress, pleasant and cooperative Lungs: Respirations even and unlabored, symmetrical chest expansion Eyes: PERRL Musculoskeletal: Flexion and extension of lumbar [spine] somewhat guarded secondary to pain, [antalgic gait noted] Neurological: Speech clear, no gross sensory deficit FINDINGS: Multiplanar MR imaging of the lumbar spine was performed without contrast. On the sagittal T2-weighted images, disc degeneration is seen at multiple levels. Note is made of levoscoliosis. There is 10 mm of anterolisthesis of L4 on 5. There is 6 mm of anterolisthesis of L5 on S1. Endplate changes are seen at multiple levels, greatest at L5-S1. Note is made of several hemangiomas. There is no evidence of fracture. The conus has an unremarkable appearance. T12-L1: There is no significant canal stenosis or neural foraminal narrowing. L1-2: An annular disc bulge is present with mild bilateral neural foraminal narrowing. L2-3: An annular bulge is present. Facet arthropathy and osteophytes are present. There is a small right paracentral disc protrusion with moderate right and mild left neural foraminal narrowing. L3-4: An annular bulge is present. Facet arthropathy and osteophytes are present. There is severe right and mild left neural foraminal narrowing. L4-5: There is severe irregularity at the inferior L4 and superior L5 endplates which are felt to represent severe endplate changes. There is no convincing evidence of discitis or osteomyelitis. There is severe, right greater than left neural foraminal narrowing. There is severe central canal stenosis with an AP diameter of the thecal sac of 3 mm. L5-S1: An annular bulge and facet arthropathy are present. There is moderate right and severe left neural foraminal narrowing. IMPRESSION: Multilevel degenerative disc disease and spondylosis.. Severe central canal stenosis at L4-5. Small right paracentral disc protrusion at L2-3. Reviewed, Interpreted and Dictated by Woody Chopra III, MD Transcribed by Lis Parisi Authenticated and [facility] Has patient had previous pain injection?: No Conservative treatment options previously tried: Home exercise plan Length of treatment: Longer than 12 weeks Meds Home Medications and Allergies Home Medications ?Medication ?Instructions ?Recorded ?Confirmed ?Type cholecalciferol (vitamin D3) 25 1,000 unit PO DAILY Supplement 07/23/17 04/01/24 History mcg (1,000 unit) capsule venlafaxine 75 mg capsule,extended 150 mg PO BID Depression 07/23/17 04/01/24 History release 24 hr zinc acetate 50 mg (zinc) capsule 50 mg PO DAILY Supplement 07/23/17 04/01/24 History (Galzin) topiramate 50 mg tablet 50 mg PO BID HEADACHES 08/20/17 04/01/24 History ferrous sulfate 325 mg (65 mg 325 mg PO DAILY Supplement 05/06/18 04/01/24 History iron) tablet pramipexole 1 mg tablet 1 mg PO TID restless legs 05/06/18 04/01/24 History pantoprazole 40 mg tablet,delayed 40 mg PO DAILY stomach 05/28/20 04/01/24 History release vitamin B complex-folic acid ER 1 tab PO DAILY Supplement 04/26/21 04/01/24 History 400 mcg tablet,extended release potassium chloride 10 mEq 10 meq PO DAILY Supplement 05/17/21 04/01/24 History capsule,extended release metoprolol succinate 25 mg 25 mg PO DAILY BLOOD PRESSURE 10/01/21 04/01/24 History tablet,extended release 24 hr rivaroxaban 20 mg tablet 20 mg PO DAILY Blood thinner 10/01/21 04/01/24 History nitroglycerin 0.4 mg sublingual 0.4 mg sublingual Q5-15M PRN chest 04/29/23 04/01/24 Rx tablet pain #30 tabs ascorbic acid (vitamin C) 500 mg 0.5 g PO DAILY 06/11/23 04/01/24 History tablet (Vitamin C) cyanocobalamin (vitamin B-12) 500 500 mcg PO DAILY 06/11/23 04/01/24 History mcg tablet alendronate 70 mg tablet 70 mg PO WEEKLY 12/30/23 04/01/24 History bumetanide 1 mg tablet 1 mg PO BID PRN Fluid 12/30/23 04/01/24 History levothyroxine 137 mcg tablet 137 mcg PO DAILY 12/30/23 04/01/24 History hydrocodone 7.5 mg-acetaminophen 1 tab PO QID #120 tabs 04/01/24 Rx 325 mg tablet New Prescriptions to Start Prescriptions: Allergies Allergy/AdvReac Type Severity Reaction Status Date / Time gabapentin Allergy Verified 12/30/23 10:57 hyaluronic acid AdvReac Severe Verified 12/30/23 10:57 [From [facility]artz] Assessment and Plan *Assessment and plan (1) Low back pain: Status: Acute Qualifiers: Back pain laterality: midline Chronicity: chronic Sciatica laterality: bilateral sciatica Sciatica presence: with sciatica Qualified Code(s): M54.41 - Lumbago with sciatica, right side; M54.42 - Lumbago with sciatica, left side; G89.29 - Other chronic pain Category: Medical Code(s): M54.5 - Low back pain (2) Spinal stenosis of lumbar region: Status: Chronic Category: Medical Code(s): M48.061 - Spinal stenosis, lumbar region without neurogenic claudication (3) Lumbar radiculopathy: Status: Chronic Category: Medical Code(s): M54.16 - Radiculopathy, lumbar region (4) Degenerative joint disease (DJD) of lumbar spine: Status: Chronic Qualifiers: Spinal osteoarthritis complication: with radiculopathy Qualified Code(s): M47.26 - Other spondylosis with radiculopathy, lumbar region Category: Medical Code(s): M47.816 - Spondylosis without myelopathy or radiculopathy, lumbar region Plan I did discuss with the patient that I will reach out to Dr. Traore's office and get a copy of the last note. I did discuss with the patient after she requested an increase of her medication for medication change that I can talk to Dr. Barnett and we can see whether or not if we can do anything different. Patient acknowledges understanding. We will change her medication from [place] 7.5 to [place] 10 mg 4 times a day and provide a 1 month supply of this medication. Patient will return to clinic in 1 month for reevaluation of symptoms and plan of care. Risks and benefits of the medication have been explained in detail to the patient. The patient does understand the risk of dependence on the medication when given over a prolonged period. Patient has been advised of risks of oversedation with the prescribed medication. Narcan has been offered to the paitent in the event of oversedation. Patient has been advised that a family member should also be educated regarding administration of Narcan. The patient has been advised to consult with his/her primary care provider and pharmacist regarding drug-drug interaction of medications currently prescribed. Patient has been prescribed a controlled substance after being counseled on the medication, medication safety, and possible side effects. Opioid contract was reviewed and signed by the patient, and that they have agreed to all of the terms set forth by our compliance program. Patient has been instructed to contact the clinic with any concerns before the next appointment. Dr. Barnett has reviewed this note and agrees with this plan of care. This note was dictated using voice recognition software and make contain errors or omissions.
[2024-05-03 14:58] VITALS: BP 111/70; PULSE 108; RESP 18; O2SAT 98; BMI 40.8
== END 2024-05-03 23:59 | disposition home or self-care (01) ==
PROVIDERS: PCP Family Medicine; Visit Provider Nurse Practitioner Family
DX: M54.41 Lumbago with sciatica, right side (principal); M54.42 Lumbago with sciatica, left side; G89.29 Other chronic pain; M48.061 Spinal stenosis, lumbar region without neurogenic claudication; M47.26 Other spondylosis with radiculopathy, lumbar region; Z87.891 Personal history of nicotine dependence
CPT/HCPCS: 99212; G0463

== ENCOUNTER 2024-06-01 12:04 | Observation (INO) | payer MEDICARE, SELFPAY ==
[2024-06-01] VITALS (10 sets, daily range): BP systolic 123–155; BP diastolic 67–90; PULSE 55–81; RESP 16–24; TEMP 36.6–37; O2SAT 96–100; BMI 42.0; BMI 43.2
--- NOTE | 2024-06-01 12:05 | ECG_ITS ---
APPROVED REPORT Exam: Resting ECG HR:64 bpm ECG Measurements Heart Rate 64 AXES WA 175 P 56 QRSd 94 QRS 28 QT 408 T 34 QTc 418 Conclusion Sinus rhythm Electronically signed by : MELINDA STAPLES, 06/01/2024 15:05:54
--- NOTE | 2024-06-01 12:08 | ED_ITS ---
Discharge Plan Disposition Patient Disposition: Admitted Condition: Good Clinical Impressions Clinical Impression: Tachyarrhythmia Chest pain Qualifiers: Chest pain type: unspecified Qualified Code(s): R07.9 - Chest pain, unspecified Discharge ED Provider: Vidal Perea HPI <CATHERINE Shelton - Last Filed: 06/01/24 17:59> General Chief Complaint: Chest Pain Stated Complaint: chest pain Time Seen by Provider: 06/01/24 12:08 History of Present Illness HPI narrative: Patient presents for evaluation of chest discomfort. Patient noted that she abruptly been having a fast heart rate and palpitations that cause her discomfort. It started around 730 last night. It occurred periodically through the night. She measured her heart rate with a wrist blood pressure cuff/heart rate monitor. She noted that her blood pressure was elevated as well. Last episode was just prior to arrival here at the hospital. She does have a known history of previous atrial fibrillation status post ablation. She currently denies chest pain shortness of breath fever chills hemoptysis hematochezia melena nausea vomiting diarrhea. Related Data Home Medications ?Medication ?Instructions ?Recorded ?Confirmed topiramate 50 mg tablet 100 mg PO BID 08/20/17 06/01/24 ferrous sulfate 325 mg (65 mg 325 mg PO BID 05/06/18 06/01/24 iron) tablet pramipexole 1 mg tablet 1 mg PO TID 05/06/18 06/01/24 pantoprazole 40 mg tablet,delayed 40 mg PO DAILY 05/28/20 06/01/24 release potassium chloride 10 mEq 10 meq PO BID 05/17/21 06/01/24 capsule,extended release metoprolol succinate 25 mg 25 mg PO DAILY 10/01/21 06/01/24 tablet,extended release 24 hr rivaroxaban 20 mg tablet 20 mg PO DAILY 10/01/21 06/01/24 cyanocobalamin (vitamin B-12) 500 500 mcg PO WEEKLY 06/11/23 06/01/24 mcg tablet alendronate 70 mg tablet 70 mg PO WEEKLY 12/30/23 06/01/24 bumetanide 1 mg tablet 1 mg PO BID 12/30/23 06/01/24 levothyroxine 137 mcg tablet 137 mcg PO DAILY 12/30/23 06/01/24 hydrocodone 10 mg-acetaminophen 1 tab PO QIDP PRN Pain (Scale 06/01/24 06/01/24 325 mg tablet Score 4-6) venlafaxine 150 mg tablet,extended 150 mg PO BID 06/01/24 06/01/24 release 24 hr Previous Rx's ?Medication ?Instructions ?Recorded nitroglycerin 0.4 mg sublingual 0.4 mg sublingual Q5-15M PRN chest 04/29/23 tablet pain #30 tabs Allergies Allergy/AdvReac Type Severity Reaction Status Date / Time gabapentin Allergy Verified 12/30/23 10:57 hyaluronic acid (From AdvReac Severe Verified 12/30/23 10:57 Supartz) [facility] <CATHERINE Shelton - Last Filed: 06/01/24 17:59> [facility] Disclaimer: The information contained in this section may have been updated after the patient was seen, as this information can be updated by other users. Medical History Abnormal stress test Abnormal electrocardiography Dyspnea Surgical History Hx of cholecystectomy H/O spinal fusion H/O shoulder surgery H/O knee surgery H/O: hysterectomy Family History Other No significant family history Social History (Updated 06/01/24 @ 16:24 by Kaleigh Linder RN) Smoking Status: Never smoker second hand exposure: No alcohol intake: never substance use type: denies use current occupational status: other Travel in the last 8 weeks: None household members: spouse housing: house current occupational exposures/hazards: No caffeine: Yes Other Medical History Have you received the Flu Vaccine for this season: Yes Have you received the Pneumonia Vaccine: Yes <CATHERINE Shelton - Last Filed: 06/01/24 17:59> ROS Obtained: Yes Systems reviewed as appropriate & no additional complaints except as documented Physical Exam <CATHERINE Shelton - Last Filed: 06/01/24 17:59> General General appearance: alert and in no apparent distress Respiratory Respiratory exam: Present normal lung sounds bilaterally Cardiovascular Cardiovascular exam: Present regular rate Neurological Exam Neurological exam: Present alert and oriented X3 HEART Score <CATHERINE Shelton - Last Filed: 06/01/24 17:59> HEART Score HEART Score assessment performed?: No History (anamnesis): Slightly suspicious ECG: Non-specific disturbance Age: 45-65 years Risk factors: 3 or more risk factors Troponin: </= normal limit HEART Score: 4 <Vidal Perea MD - Last Filed: 06/02/24 15:01> HEART Score HEART Score: 4 Critical Care <CATHERINE Shelton - Last Filed: 06/01/24 17:59> Critical Care Time Critical Care Time: No Medical Decision Making <CATHERINE Shelton - Last Filed: 06/01/24 17:59> Medical Records Medical records reviewed: Yes I reviewed the patient's medical records. Tavo Inquiry Pt receiving controlled substance: No Vital Signs Vital Signs: 06/01/24 12:04 06/01/24 13:01 06/01/24 13:31 Temperature 98.2 F Temperature Source Oral Pulse Rate 60 68 Pulse Rate [Right] 64 Respiratory Rate 18 23 24 Blood Pressure 136/79 148/87 H Blood Pressure [Right Arm] 148/71 H Blood Pressure Mean [Right Arm] 96 02 Sat by Pulse Oximetry 100 99 98 Oxygen Delivery Method Room Air Room Air Room Air 06/01/24 14:00 06/01/24 14:31 06/01/24 15:25 Temperature 98.1 F Temperature Source Oral Pulse Rate 57 L 59 L 81 Pulse Rate [Right] Respiratory Rate 18 Blood Pressure 133/67 155/71 H 148/76 H Blood Pressure [Right Arm] Blood Pressure Mean [Right Arm] 02 Sat by Pulse Oximetry 100 100 Oxygen Delivery Method Room Air Room Air Room Air Lab Data Lab results reviewed: Yes I reviewed the patient's lab results. Labs: Lab Results 06/01/24 12:05: WBC 4.5 L, RBC 4.09 L, Hgb 13.2, Hct 41.1, MCV 100.5 H, MCH 32.3 H, MCHC 32.1, RDW 13.5, Plt Count 210, MPV 8.4, Neut % (Auto) 65.8, Lymph % (Auto) 24.3, [place] % (Auto) 5.1, Eos % (Auto) 3.7, Baso % (Auto) 1.1, Neut # (Auto) 3.0, Lymph # (Auto) 1.1, [place] # (Auto) 0.2, Eos # (Auto) 0.2, Baso # (Auto) 0.1, PT 11.3, INR 1.01, Sodium 144, Potassium 4.0, Chloride 112 H, Carbon Dioxide 27, Anion Gap 9.0, BUN 16, Creatinine 0.90, Estimated Creat Clear 46, Estimated GFR 63, Est GFR ( Amer) 77, Glucose 93, Calcium 8.8, Magnesium 2.1, Total Bilirubin 0.3, AST 50 H, ALT 44, Alkaline Phosphatase 74, Troponin I < 0.01, NT-Pro-B Natriuret Pep 462 H, Total Protein 6.4, Albumin 4.0, Globulin 2.4, Albumin/Globulin Ratio 1.7, Hepatitis C Antibody Non reactive, HIV 1&2 Antibody Rapid Nonreactive 06/01/24 15:25: Troponin I < 0.01 06/02/24 05:44 06/02/24 05:44 Response Orders (Tests/Meds): ED MEDICATIONS Generic Name Dose Route Start Last Admin Trade Name Freq PRN Reason Stop Dose Admin Acetaminophen 650 mg 06/01/24 15:10 Acetaminophen 325mg Tab PO 07/01/24 15:09 Q4HP PRN Fever or Mild Pain (1-3) Hydrocodone Bitart/Acetaminophen 1 tab 06/01/24 18:53 06/02/24 08:58 Hydrocodone 10mg/Apap 325mg Tab PO 07/01/24 18:52 1 tab QIDP PRN Administration Pain (Scale Score 4-6) Bumetanide 1 mg 06/01/24 18:55 06/02/24 08:51 Bumetanide 1 Mg Tablet PO 07/01/24 18:54 1 mg BIDL JAVIER Administration Hydroxyzine Pamoate 25 mg 06/01/24 17:42 06/02/24 01:15 Hydroxyzine Pamoate 25mg Capsule PO 07/01/24 17:41 25 mg Q6HP PRN Administration Anxiety Levothyroxine Sodium 137 mcg 06/02/24 09:00 06/02/24 08:52 Levothyroxine 137mcg (0.137mg) Tab PO 07/02/24 08:59 137 mcg DAILYDM JAVIER Administration Metoprolol Succinate 50 mg 06/02/24 09:00 12/04/24 08:51 Metoprolol Succinate Xl 50mg Tablet PO 07/02/24 08:59 50 mg DAILY JAVIER Administration Ondansetron HCl 4 mg 06/01/24 15:10 Ondansetron 4mg/2ml Vial IV 07/01/24 15:09 Q8HP PRN Nausea Pantoprazole Sodium 40 mg 06/02/24 21:00 Pantoprazole 40mg Tablet PO 07/02/24 20:59 HS JAVIER Potassium Chloride 10 meq 06/01/24 21:00 06/02/24 08:51 Potassium Chloride 10meq Capsule.Er PO 07/01/24 20:59 10 meq BID JAVIER Administration Pramipexole Dihydrochloride 1 mg 06/01/24 21:00 06/02/24 12:08 Pramipexole 1mg Tab PO 07/01/24 20:59 1 mg TID JAVIER Administration Rivaroxaban 20 mg 06/02/24 17:30 Rivaroxaban 10mg Tablet PO 07/02/24 17:29 QPMWITHMEAL JAVIER Topiramate 100 mg 06/02/24 09:00 06/02/24 08:52 Topiramate 100mg Tablet PO 07/02/24 08:59 100 mg BID JAVIER Administration Venlafaxine HCl 150 mg 06/02/24 09:00 06/02/24 08:52 Venlafaxine Xr 75mg Capsule PO 07/02/24 08:59 150 mg DAILY JAVIER Administration Discontinued Medications Generic Name Dose Route Start Last Admin Trade Name Freq PRN Reason Stop Dose Admin Belladonna Alkaloids 60 ml 06/02/24 11:58 06/02/24 11:59 Belladonna Alkaloids 60 Ml Ml PO 06/02/24 11:59 60 ml ONCE ONE Administration Enoxaparin Sodium 40 mg 06/02/24 09:00 Enoxaparin 40mg/0.4ml Syringe SUBCUT 07/02/24 08:59 BID JAVIER Iopamidol 75 ml 06/02/24 12:32 06/02/24 12:33 Iopamidol-370 (76%);100ml Bottle IV 06/02/24 12:33 75 ml ONCE ONE Administration Metoprolol Succinate 25 mg 06/02/24 09:00 Metoprolol Succinate Xl 25mg Tablet PO 07/02/24 08:59 DAILY JAVIER Non-Formulary Medication 100 mg 06/01/24 21:00 06/01/24 20:30 Topiramate PO 07/01/24 20:59 100 mg BID JAVIER Administration Sodium Chloride 10 ml 06/02/24 12:32 06/02/24 12:33 Sodium Chloride 0.9% 10ml Syr (Rad Only) IV 06/02/24 12:33 10 ml ONCE ONE Administration ORDERS Category Date Time Status Chest XR 2 view (NOT portable) [XR chest 2V] Stat Exams 06/01/24 12:58 Completed BNP [NT Pro Brain Natriuretic Pep.] Stat Lab 06/01/24 12:05 Completed CBC w/Auto Diff [Complete Blood Count Auto Diff] Stat Lab 06/01/24 12:05 Completed CMP [Comprehensive Metabolic Panel] Stat Lab 06/01/24 12:05 Completed HIV (1&2) Antibody Rapid Stat Lab 06/01/24 12:05 Completed Hep C Ab with Reflex to RNA Stat Lab 06/01/24 12:05 Completed INR [Prothrombin Time INR] Stat Lab 06/01/24 12:05 Completed Magnesium Stat Lab 06/01/24 12:05 Completed Trop I [Troponin I] Stat Lab 06/01/24 12:05 Completed Troponin I Q3H Lab 06/01/24 15:25 Completed Troponin I Q3H Lab 06/01/24 18:15 Completed MDM Narrative Medical Decision Narrative: In summary patient is a 63-year-old female who presents to the emergency department for evaluation of palpitations and chest pain. Patient is initially normotensive at 148/71 with an O2 sat of 100% breathing 18 times a minute and a pulse of 64 upon arrival, afebrile. Physical exam is unremarkable and nonfocal including what appears to be sinus bradycardia on the bedside monitor currently at 55, normal breath sounds normal heart sounds no abdominal tenderness no dependent edema noted. No increased work of breathing or accessory muscle use. Differential diagnosis includes tachyarrhythmia versus A-fib RVR versus ACS versus CHF etc. Initial workup will be conducted with hematologic labs plain film chest x-ray twelve-lead EKG. Initial interventions were considered however patient currently is asymptomatic thus deferred for now. Initial workup reviewed by me shows a white count of 4.5 normal H&H with no neutrophilic shift, a troponin of less than 0.01 and NT proBNP of 462 with the remainder of her hematologic labs being nonactionable. My informal interpretation of her plain film chest x-ray shows no acute processes.. Given that patient had documented tachycardia intermittently but none since arrival I had an interactive discussion with Dr. Euceda of cardiology regarding patient management. He would like to have the patient admitted for further evaluation and care. Given that I had interactive discussion with hospital medicine about patient management and she will be admitted for further evaluation and care. <Vidal Perea MD - Last Filed: 06/02/24 15:01> Vital Signs Vital Signs: 06/01/24 12:04 06/01/24 13:01 06/01/24 13:31 Temperature 98.2 F Temperature Source Oral Pulse Rate 60 68 Pulse Rate [Right] 64 Respiratory Rate 18 23 24 Blood Pressure 136/79 148/87 H Blood Pressure [Right Arm] 148/71 H Blood Pressure Mean [Right Arm] 96 02 Sat by Pulse Oximetry 100 99 98 Oxygen Delivery Method Room Air Room Air Room Air 06/01/24 14:00 06/01/24 14:31 06/01/24 15:25 Temperature 98.1 F Temperature Source Oral Pulse Rate 57 L 59 L 81 Pulse Rate [Right] Respiratory Rate 18 Blood Pressure 133/67 155/71 H 148/76 H Blood Pressure [Right Arm] Blood Pressure Mean [Right Arm] 02 Sat by Pulse Oximetry 100 100 Oxygen Delivery Method Room Air Room Air Room Air Lab Data Labs: Lab Results 06/01/24 12:05: WBC 4.5 L, RBC 4.09 L, Hgb 13.2, Hct 41.1, MCV 100.5 H, MCH 32.3 H, MCHC 32.1, RDW 13.5, Plt Count 210, MPV 8.4, Neut % (Auto) 65.8, Lymph % (Auto) 24.3, [place] % (Auto) 5.1, Eos % (Auto) 3.7, Baso % (Auto) 1.1, Neut # (Auto) 3.0, Lymph # (Auto) 1.1, [place] # (Auto) 0.2, Eos # (Auto) 0.2, Baso # (Auto) 0.1, PT 11.3, INR 1.01, Sodium 144, Potassium 4.0, Chloride 112 H, Carbon Dioxide 27, Anion Gap 9.0, BUN 16, Creatinine 0.90, Estimated Creat Clear 46, Estimated GFR 63, Est GFR ( Amer) 77, Glucose 93, Calcium 8.8, Magnesium 2.1, Total Bilirubin 0.3, AST 50 H, ALT 44, Alkaline Phosphatase 74, Troponin I < 0.01, NT-Pro-B Natriuret Pep 462 H, Total Protein 6.4, Albumin 4.0, Globulin 2.4, Albumin/Globulin Ratio 1.7, Hepatitis C Antibody Non reactive, HIV 1&2 Antibody Rapid Nonreactive 06/01/24 15:25: Troponin I < 0.01 Response Orders (Tests/Meds): ED MEDICATIONS Generic Name Dose Route Start Last Admin Trade Name Freq PRN Reason Stop Dose Admin Acetaminophen 650 mg 06/01/24 15:10 Acetaminophen 325mg Tab PO 07/01/24 15:09 Q4HP PRN Fever or Mild Pain (1-3) Hydrocodone Bitart/Acetaminophen 1 tab 06/01/24 18:53 06/02/24 08:58 Hydrocodone 10mg/Apap 325mg Tab PO 07/01/24 18:52 1 tab QIDP PRN Administration Pain (Scale Score 4-6) Bumetanide 1 mg 06/01/24 18:55 06/02/24 08:51 Bumetanide 1 Mg Tablet PO 07/01/24 18:54 1 mg BIDL JAVIER Administration Hydroxyzine Pamoate 25 mg 06/01/24 17:42 06/02/24 01:15 Hydroxyzine Pamoate 25mg Capsule PO 07/01/24 17:41 25 mg Q6HP PRN Administration Anxiety Levothyroxine Sodium 137 mcg 06/02/24 09:00 06/02/24 08:52 Levothyroxine 137mcg (0.137mg) Tab PO 07/02/24 08:59 137 mcg DAILYDM JAVIER Administration Metoprolol Succinate 50 mg 06/02/24 09:00 06/02/24 08:51 Metoprolol Succinate Xl 50mg Tablet PO 07/02/24 08:59 50 mg DAILY JAVIER Administration Ondansetron HCl 4 mg 06/01/24 15:10 Ondansetron 4mg/2ml Vial IV 07/01/24 15:09 Q8HP PRN Nausea Pantoprazole Sodium 40 mg 06/02/24 21:00 Pantoprazole 40mg Tablet PO 07/02/24 20:59 HS JAVIER Potassium Chloride 10 meq 06/01/24 21:00 06/02/24 08:51 Potassium Chloride 10meq Capsule.Er PO 07/01/24 20:59 10 meq BID JAVIER Administration Pramipexole Dihydrochloride 1 mg 06/01/24 21:00 06/02/24 12:08 Pramipexole 1mg Tab PO 07/01/24 20:59 1 mg TID JAVIER Administration Rivaroxaban 20 mg 06/02/24 17:30 Rivaroxaban 10mg Tablet PO 07/02/24 17:29 QPMWITHMEAL JAVIER Topiramate 100 mg 06/02/24 09:00 06/02/24 08:52 Topiramate 100mg Tablet PO 07/02/24 08:59 100 mg BID JAVIER Administration Venlafaxine HCl 150 mg 06/02/24 09:00 06/02/24 08:52 Venlafaxine Xr 75mg Capsule PO 07/02/24 08:59 150 mg DAILY JAVIRE Administration Discontinued Medications Generic Name Dose Route Start Last Admin Trade Name Freq PRN Reason Stop Dose Admin Belladonna Alkaloids 60 ml 06/02/24 11:58 06/02/24 11:59 Belladonna Alkaloids 60 Ml Ml PO 06/02/24 11:59 60 ml ONCE ONE Administration Enoxaparin Sodium 40 mg 06/02/24 09:00 Enoxaparin 40mg/0.4ml Syringe SUBCUT 07/02/24 08:59 BID [facility] Iopamidol 75 ml 06/02/24 12:32 06/02/24 12:33 Iopamidol-370 (76%);100ml Bottle IV 06/02/24 12:33 75 ml ONCE ONE Administration Metoprolol Succinate 25 mg 06/02/24 09:00 Metoprolol Succinate Xl 25mg Tablet PO 07/02/24 08:59 DAILY [facility] Non-Formulary Medication 100 mg 06/01/24 21:00 06/01/24 20:30 Topiramate PO 07/01/24 20:59 100 mg BID JAVIER Administration Sodium Chloride 10 ml 06/02/24 12:32 06/02/24 12:33 Sodium Chloride 0.9% 10ml Syr (Rad Only) IV 06/02/24 12:33 10 ml ONCE ONE Administration ORDERS Category Date Time Status Chest XR 2 view (NOT portable) [XR chest 2V] Stat Exams 06/01/24 12:58 Completed BNP [NT Pro Brain Natriuretic Pep.] Stat Lab 06/01/24 12:05 Completed CBC w/Auto Diff [Complete Blood Count Auto Diff] Stat Lab 06/01/24 12:05 Completed CMP [Comprehensive Metabolic Panel] Stat Lab 06/01/24 12:05 Completed HIV (1&2) Antibody Rapid Stat Lab 06/01/24 12:05 Completed Hep C Ab with Reflex to RNA Stat Lab 06/01/24 12:05 Completed INR [Prothrombin Time INR] Stat Lab 06/01/24 12:05 Completed Magnesium Stat Lab 06/01/24 12:05 Completed Trop I [Troponin I] Stat Lab 06/01/24 12:05 Completed Troponin I Q3H Lab 06/01/24 15:25 Completed Troponin I Q3H Lab 06/01/24 18:15 Completed ECG Data Tracing #1: Attestation: I reviewed this ECG and interpreted as documented below: (Sinus rhythm 64 beats a minute. MO 175, QRS 94, QTc 418. Normal axis) MDM Narrative Medical Decision Narrative: In summary patient is a 63-year-old female who presents to the emergency department for evaluation of palpitations and chest pain. Patient is initially normotensive at 148/71 with an O2 sat of 100% breathing 18 times a minute and a pulse of 64 upon arrival, afebrile. Physical exam is unremarkable and nonfocal including what appears to be sinus bradycardia on the bedside monitor currently at 55, normal breath sounds normal heart sounds no abdominal tenderness no dependent edema noted. No increased work of breathing or accessory muscle use. Differential diagnosis includes tachyarrhythmia versus A-fib RVR versus ACS versus CHF etc. Initial workup will be conducted with hematologic labs plain film chest x-ray twelve-lead EKG. Initial interventions were considered however patient currently is asymptomatic thus deferred for now. Initial workup reviewed by me shows a white count of 4.5 normal H&H with no neutrophilic shift, a troponin of less than 0.01 and NT proBNP of 462 with the remainder of her hematologic labs being nonactionable. My informal interpretation of her plain film chest x-ray shows no acute processes.. Given that patient had documented tachycardia intermittently but none since arrival I had an interactive discussion with Dr. Euceda of cardiology regarding patient management. He would like to have the patient admitted for further evaluation and care. Given that I had interactive discussion with hospital medicine about patient management and she will be admitted for further evaluation and care. I was consulted by the ROSARIO, and we discussed the complexity of the problems being addressed. I approved the treatment and management plan for this patient's care in the Emergency Department, thus performing a substantive portion of the medical decision making. Vidal Perea MD
[2024-06-01 12:18] LABS: Basophils # 0.1 K/mm3 (0-0.2); Basophils % 1.1 % (0.1-2.0); Eosinophils # 0.2 K/mm3 (0.0-0.4); Eosinophils % 3.7 % (0.1-12.0); Hematocrit 41.1 % (37.0-47.0); Hemoglobin 13.2 g/dL (12.2-16.2); Lymphocytes # 1.1 K/mm3 (0.7-4.5); Lymphocytes % 24.3 % (10-50); Mean Corpuscular HGB Conc 32.1 g/dL (31.8-35.4); Mean Corpuscular Hemoglobin 32.3 pg (27.0-31.2); Mean Corpuscular Volume 100.5 fl (81-99); Mean Platelet Volume 8.4 fl (7.4-10.4); Monocytes # 0.2 K/mm3 (0.1-1.0); Monocytes % 5.1 % (1.7-9.3); Neutrophils % 65.8 % (37.0-80.0); Platelet Count 210 K/mm3 (142-424); Red Blood Count 4.09 M/mm3 (4.20-5.40); Red Cell Distribution Width 13.5 % (11.5-17.5); White Blood Count 4.5 K/mm3 (4.8-10.8)
[2024-06-01 12:24] LABS: Chloride 112 mmol/L (98-107); Sodium 144 mmol/L (136-145)
[2024-06-01 12:27] LABS: Alanine Aminotransferase 44 U/L (12-78); Albumin/Globulin Ratio 1.7 (1.1-1.8); Alkaline Phosphatase 74 U/L (38-126); Aspartate Amino Transferase 50 U/L (14-36); Bilirubin,Total 0.3 mg/dl (0.2-1.3); Blood Urea Nitrogen 16 mg/dl (7-17); Calcium 8.8 mg/dl (8.4-10.2); Carbon Dioxide 27 mmol/L (22.0-30.0); Creatinine Clearance Estimated 46 mL/min (50-200); Estimated Glomerular Filt Rate 63 ml/min (>60); GFR (African American) 77 ML/MIN (>60); Globulin 2.4 g/dL (1.3-3.2); Glucose 93 mg/dl (74-100); Magnesium 2.1 mg/dl (1.6-2.3); Total Protein,Serum 6.4 g/dl (6.3-8.2)
[2024-06-01 12:36] LABS: INR 1.01 (0.9-1.1); NT Pro Brain Natriuretic Pep. 462 pg/mL (0-125); Prothrombin Time 11.3 seconds (10.1-12.5)
[2024-06-01 12:39] LABS: Troponin I < 0.01 ng/ml (0.00-0.034)
--- NOTE | 2024-06-01 12:42 | PC.NURSE ---
pt resting in bed and visiting with her family member. no needs voiced. call julian in reach.
--- NOTE | 2024-06-01 12:58 | XR_ITS ---
FINAL REPORT CLINICAL HISTORY: Chest pain, weakness FINDINGS: CHEST 2 VIEWS PA AND LATERAL There is cardiomegaly with mild pulmonary vascular congestion. The mediastinum is unremarkable. The lungs are clear. There is no pneumothorax. There are postoperative changes of the cervical thoracic spine. IMPRESSION: Cardiomegaly with pulmonary vascular congestion. Reviewed, Interpreted and Dictated by Woody Chopra III, MD Transcribed by Lis Parisi Authenticated and [facility]
[2024-06-01 14:56] LABS: HIV (1&2) Antibody Rapid NONREACTIVE (NONREACTIVE)
--- NOTE | 2024-06-01 14:56 | PC.NURSE ---
HS aware of admission
--- NOTE | 2024-06-01 15:19 | PC.NURSE ---
report called to Alina
--- NOTE | 2024-06-01 16:08 | HMH.PHAINT1 ---
Pharmacy Intervention Comments: home medications verified via outpatient pharmacy and patient interview
[2024-06-01 16:13] LABS: Troponin I < 0.01 ng/ml (0.00-0.034)
--- NOTE | 2024-06-01 18:41 | P.HP_ITS ---
History of Present Illness *Admission Date: 06/01/24 *Reason for visit:: Tachyarrhythmias *History of present illness: Sue Wood is a 63-year-old female with a medical history significant for paroxysmal A-fib s/p ablation on Xarelto, HFpEF, hypothyroidism, anxiety/depression, degenerative disc disease low back who presents with 1 day onset of recurring palpitations and elevated heart rate on her blood pressure cuff. She states it began around 11 PM last night while she was watching a movie with her , with a heart rate as high as 180. She felt palpitations but denied chest pain, shortness of breath during this period. These episodes continued into today and patient decided to come to the ED. Initial EKG showed heart rate 64 with sinus rhythm. CXR showed pulmonary edema, and patient states she has not been taking her medications every day as she is nervous about taking 70 medications. Workup otherwise unremarkable. Dr. Euceda was consulted by the ED who recommended admission for further evaluation of tachyarrhythmias due to history of A-fib. Case discussed with ED provider and decision was made to admit patient for tachyarrhythmia, pulmonary edema. [facility] Disclaimer: The information contained in this section may have been updated after the patient was seen, as this information can be updated by other users. Medical History Abnormal stress test Abnormal electrocardiography Dyspnea Surgical History Hx of cholecystectomy H/O spinal fusion H/O shoulder surgery H/O knee surgery H/O: hysterectomy Family History Other No significant family history Social History (Updated 06/01/24 @ 16:24 by Kaleigh Linder RN) Smoking Status: Never smoker second hand exposure: No alcohol intake: never substance use type: denies use current occupational status: other Travel in the last 8 weeks: None household members: spouse housing: house current occupational exposures/hazards: No caffeine: Yes Other Medical History Have you received the Flu Vaccine for this season: No Have you received the Pneumonia Vaccine: No Meds Home Medications and Allergies Home Medications ?Medication ?Instructions ?Recorded ?Confirmed ?Type topiramate 50 mg tablet 100 mg PO BID 08/20/17 06/01/24 History ferrous sulfate 325 mg (65 mg 325 mg PO BID 05/06/18 06/01/24 History iron) tablet pramipexole 1 mg tablet 1 mg PO TID 05/06/18 06/01/24 History pantoprazole 40 mg tablet,delayed 40 mg PO DAILY 05/28/20 06/01/24 History release potassium chloride 10 mEq 10 meq PO BID 05/17/21 06/01/24 History capsule,extended release metoprolol succinate 25 mg 25 mg PO DAILY 10/01/21 06/01/24 History tablet,extended release 24 hr rivaroxaban 20 mg tablet 20 mg PO DAILY 10/01/21 06/01/24 History nitroglycerin 0.4 mg sublingual 0.4 mg sublingual Q5-15M PRN chest 04/29/23 06/01/24 Rx tablet pain #30 tabs cyanocobalamin (vitamin B-12) 500 500 mcg PO WEEKLY 06/11/23 06/01/24 History mcg tablet alendronate 70 mg tablet 70 mg PO WEEKLY 12/30/23 06/01/24 History bumetanide 1 mg tablet 1 mg PO BID 12/30/23 06/01/24 History levothyroxine 137 mcg tablet 137 mcg PO DAILY 12/30/23 06/01/24 History hydrocodone 10 mg-acetaminophen 1 tab PO QIDP PRN Pain (Scale 06/01/24 06/01/24 History 325 mg tablet Score 4-6) venlafaxine 150 mg tablet,extended 150 mg PO BID 06/01/24 06/01/24 History release 24 hr New Prescriptions to Start Prescriptions: Allergies Allergy/AdvReac Type Severity Reaction Status Date / Time gabapentin Allergy Verified 12/30/23 10:57 hyaluronic acid (From AdvReac Severe Verified 12/30/23 10:57 Supartz) Exam Data for Last 24 hours Vital signs and Labs for Last 24 Hours: Temp Pulse Resp BP Pulse Ox O2 Del Method 98 F 55 L 16 148/90 H 99 Room Air 06/01/24 16:00 06/01/24 16:00 06/01/24 16:00 06/01/24 16:00 06/01/24 16:00 06/01/24 16:00 Laboratory Results - last 24 hr 06/01/24 12:05: WBC 4.5 L, RBC 4.09 L, Hgb 13.2, Hct 41.1, MCV 100.5 H, MCH 32.3 H, MCHC 32.1, RDW 13.5, Plt Count 210, MPV 8.4, Neut % (Auto) 65.8, Lymph % (Auto) 24.3, [place] % (Auto) 5.1, Eos % (Auto) 3.7, Baso % (Auto) 1.1, Neut # (Auto) 3.0, Lymph # (Auto) 1.1, [place] # (Auto) 0.2, Eos # (Auto) 0.2, Baso # (Auto) 0.1, PT 11.3, INR 1.01, Sodium 144, Potassium 4.0, Chloride 112 H, Carbon Dioxide 27, Anion Gap 9.0, BUN 16, Creatinine 0.90, Estimated Creat Clear 46, Estimated GFR 63, Est GFR ( Amer) 77, Glucose 93, Calcium 8.8, Magnesium 2.1, Total Bilirubin 0.3, AST 50 H, ALT 44, Alkaline Phosphatase 74, Troponin I < 0.01, NT-Pro-B Natriuret Pep 462 H, Total Protein 6.4, Albumin 4.0, Globulin 2.4, Albumin/Globulin Ratio 1.7, HIV 1&2 Antibody Rapid Nonreactive 06/01/24 15:25: Troponin I < 0.01 I & O for Last 24 hours: Intake & Output 05/29/24 05/30/24 05/31/24 06/01/24 23:59 23:59 23:59 23:59 Weight 106.73 kg Constitutional Constitutional: no acute distress *Routine HEENT Exam Head: Present normocephalic Eye: Present EOMI and PERRL ENT: Present mucous membranes moist *Routine Neck Exam Neck: Present supple; Absent lymphadenopathy *Routine Respiratory Exam Respiratory: Present CTA bilaterally *Routine Cardiovascular Exam Cardiovascular: Present RRR *Routine Abdominal Exam Abdominal: Present soft and normoactive bowel sounds; Absent tenderness *Routine Rectal Exam Rectal:: deferred *Routine Genitalia Exam Genitalia:: deferred *Routine Extremities Exam Extremities: Absent cyanosis, clubbing or edema *Routine Skin Exam Skin: Present warm; Absent rash *Routine Neurological Exam Neurological: Present alert and oriented X3 Assessment and Plan *Assessment and plan (1) Tachyarrhythmia: Status: Acute Category: Medical Code(s): R00.0 - Tachycardia, unspecified (2) Atrial fibrillation: Status: Chronic Qualifiers: Atrial fibrillation type: paroxysmal Qualified Code(s): I48.0 - Paroxysmal atrial fibrillation Category: Medical Code(s): I48.91 - Unspecified atrial fibrillation Plan Sue Wood is a 63-year-old female with a medical history significant for paroxysmal A-fib s/p ablation on Xarelto, HFpEF, hypothyroidism, anxiety/depression, degenerative disc disease low back who presents with 1 day onset of recurring palpitations and elevated heart rate on her blood pressure cuff. She states it began around 11 PM last night while she was watching a movie with her , with a heart rate as high as 180. She felt palpitations but denied chest pain, shortness of breath during this period. These episodes continued into today and patient decided to come to the ED. Initial EKG showed heart rate 64 with sinus rhythm. CXR showed pulmonary edema, and patient states she has not been taking her medications every day as she is nervous about taking 70 medications. Workup otherwise unremarkable. Dr. Euceda was consulted by the ED who recommended admission for further evaluation of tachyarrhythmias due to history of A-fib. Case discussed with ED provider and decision was made to admit patient for tachyarrhythmia, pulmonary edema. #Tachyarrhythmia, resolved #HFpEF exacerbation #History of A-fib s/p ablation ? On admission, patient was in normal sinus rhythm with heart rate in the 50s and 60s, comfortable and conversational. ? CXR does suggest vascular congestion, BNP 462. No significant peripheral edema. - It is possible pulmonary edema triggered Afib RVR at home. ? Patient states she has not been adherent to her medications every day as she is nervous about taking so many medications. ? Resumed home Bumex 1 mg twice daily. - Resumed home metoprolol succinate 25mg, Xarelto 20mg. - Follow-up ECHO. - Cardiology consulted, pending further recommendations. - Continuous cardiac tele. #Hypothyroidism - Resumed home levothyroxine 137mcg. - Follow-up TSH. #Anxiety/depression - Resumed home velafaxine at lower dose of 150mg daily. FULL CODE Xarelto 20mg
[2024-06-01 19:12] LABS: Troponin I < 0.01 ng/ml (0.00-0.034)
[2024-06-01] MEDS: BUMETANIDE 1 MG TABLET PO (20:29)
[2024-06-01] MEDS: POTASSIUM CHLORIDE 10MEQ CAPSULE.ER 10 MEQ PO (20:29)
[2024-06-01] MEDS: HYDROCODONE 10MG/APAP 325MG TAB 1 TAB PO (20:29)
[2024-06-01] MEDS: TOPIRAMATE 100 EACH PO (20:30)
[2024-06-01] MEDS: PRAMIPEXOLE 1MG TAB 1 MG PO (22:02)
[2024-06-02] VITALS (8 sets, daily range): BP systolic 119–149; BP diastolic 58–96; PULSE 55–104; RESP 16–22; TEMP 36.6–36.7; O2SAT 95–99; BMI 44.1
--- NOTE | 2024-06-02 00:46 | ECG_ITS ---
APPROVED REPORT Exam: Resting ECG HR:61 bpm ECG Measurements Heart Rate 61 AXES VA 161 P 67 QRSd 100 QRS 9 QT 421 T 27 QTc 425 Conclusion SINUS RHYTHM NORMAL ECG UNCONFIRMED REPORT Electronically signed by : Ulises Negrete MD 06/02/2024 20:54:53
[2024-06-02] MEDS: hydrOXYzine pamoate 25MG CAPSULE 25 MG PO (01:15)
--- NOTE | 2024-06-02 04:14 | PC.NURSE ---
At 0040 patient reports while up she became weak, SOB, and felt like the [place] was going on in her chest. She said she was having a tightness in epigastric area. EKG was performed and read sinus rhythm, vitals were stable with BP 130/71, HR 65, O2 95% RA, RR 22. Moreno Fraire NP at bedside. orthostatic vitals were obtained, see chart. While sitting up patient experienced SOB. Upon standing patient became very SOB, Shakey, and said she felt like something was squeezing her around her epigastric area. After lying down patient felt better. Discussed using a purewick and not getting out of bed without assistance. patient agreed. while techs were dressing patient she had another episode. patient reports feeling SOB and tightness in same area. patient stated this happens when cold air touches her back. vistaril was given per aug for anxiety.
[2024-06-02 06:18] LABS: Basophils # 0.1 K/mm3 (0-0.2); Eosinophils # 0.2 K/mm3 (0.0-0.4); Eosinophils % 4.7 % (0.1-12.0); Hematocrit 36.5 % (37.0-47.0); Hemoglobin 12.1 g/dL (12.2-16.2); Lymphocytes # 1.3 K/mm3 (0.7-4.5); Lymphocytes % 27.5 % (10-50); Mean Corpuscular HGB Conc 33.3 g/dL (31.8-35.4); Mean Corpuscular Hemoglobin 32.4 pg (27.0-31.2); Mean Corpuscular Volume 97.5 fl (81-99); Mean Platelet Volume 8.5 fl (7.4-10.4); Monocytes # 0.3 K/mm3 (0.1-1.0); Monocytes % 6.1 % (1.7-9.3); Neutrophils # 2.8 K/mm3 (1.8-7.8); Neutrophils % 60.7 % (37.0-80.0); Platelet Count 175 K/mm3 (142-424); Red Blood Count 3.74 M/mm3 (4.20-5.40); Red Cell Distribution Width 13.4 % (11.5-17.5); White Blood Count 4.6 K/mm3 (4.8-10.8)
--- NOTE | 2024-06-02 06:21 | EXP.EVENT.NO ---
Patient had tried to get out of bed to go to the bathroom and was having quite a bit of problems. Staff had to place her back into the bed. Patient describes pain under the breast and the chest wall that whenever she stands up it feels like there is a tight band and she cannot breathe. exam: With the patient lying in bed showing no symptoms of any discomfort heart and lung sounds were normal. Abdomen hyper active bowel sounds. Had the patient to do orthostatics and actually saw that the blood pressure went up and the heart rate went up from lying sitting to standing 126/60 with 64 lying 139/70 with a heart rate of 70 and 149/96 with a heart rate of 99 standing. What was unusual is that she was fine until she was standing and then needed help standing up kind of leaned forward and was acting as if she was having a tremor and having terrible pain was placed back in bed and seemed to improve. Aranda: Patient gives a history of having gastric bypass surgery more than 15 years ago crushed question where there was a Karla-en-Y also has significant fixation of her cervical spine, thoracic spine shows degeneration with bone spurring but her lumbar spine especially L4 L5-S1 significant degeneration with spinal stenosis, patient stated that she does go to a spinal surgeon in [place] a Dr. Henri Traore. That he has informed her about the spinal stenosis could lead to her not being able to walk.. And her CT scans and MRI of her lumbar spine are quite impressive. So unsure as to the making of this new pain related to all of her previous surgeries always standing now having problems whether or not there is enough spinal stenosis it is beginning to affect her ability to stand. Nurse did note that later on she came in the room patient was sleeping, but only when the patient heard her touch the doorknob to leave the room that she woke up and then started having problems like she was having the same pain again.. Unsure of the cause of this whether there is secondary gain but there is definitely spinal degeneration with scoliosis a twisting and there is cervical next fixation of multiple levels.
[2024-06-02 06:31] LABS: Albumin Level 3.4 g/dl (3.5-5.0); Chloride 112 mmol/L (98-107); Sodium 144 mmol/L (136-145)
[2024-06-02 06:34] LABS: Alanine Aminotransferase 37 U/L (12-78); Albumin/Globulin Ratio 1.5 (1.1-1.8); Alkaline Phosphatase 77 U/L (38-126); Aspartate Amino Transferase 42 U/L (14-36); Bilirubin,Total 0.3 mg/dl (0.2-1.3); Blood Urea Nitrogen 20 mg/dl (7-17); Calcium 8.6 mg/dl (8.4-10.2); Carbon Dioxide 26 mmol/L (22.0-30.0); Creatinine Clearance Estimated 43 mL/min (50-200); Estimated Glomerular Filt Rate 56 ml/min (>60); GFR (African American) 68 ML/MIN (>60); Globulin 2.2 g/dL (1.3-3.2); Glucose 105 mg/dl (74-100); Total Protein,Serum 5.6 g/dl (6.3-8.2)
[2024-06-02 07:16] LABS: HCV Ab Non Reactive (Non Reactive)
[2024-06-02] MEDS: BUMETANIDE 1 MG TABLET PO ×2 (08:51→15:22)
[2024-06-02] MEDS: POTASSIUM CHLORIDE 10MEQ CAPSULE.ER 10 MEQ PO (08:51)
[2024-06-02] MEDS: METOPROLOL SUCCINATE XL 50MG TABLET 50 MG PO (08:51)
[2024-06-02] MEDS: VENLAFAXINE XR 75MG CAPSULE 150 MG PO (08:52)
[2024-06-02] MEDS: LEVOTHYROXINE 137MCG (0.137MG) TAB 137 MCG PO (08:52)
[2024-06-02] MEDS: TOPIRAMATE 100MG TABLET 100 MG PO (08:52)
[2024-06-02] MEDS: PRAMIPEXOLE 1MG TAB 1 MG PO ×2 (08:52→12:08)
[2024-06-02] MEDS: HYDROCODONE 10MG/APAP 325MG TAB 1 TAB PO (08:58)
--- NOTE | 2024-06-02 10:12 | P.CONCA_ITS ---
History of Present Illness History of Present Illness Consult date: 06/02/24 Requesting physician: Kavon Taylor Chief complaint: palpitations Additional Medical History:: 1. History of A. fib A. history of ablation, 2019 B. On Xarelto therapy 2. History of HFpEF 3. Hypothyroidism 4. Anxiety/depression 5. Degenerative disc disease with low back pain 6. Normal coronary angiogram, 04/2023 7. Chronic lower extremity edema, declined referral to lymphedema clinic 8. Tobacco use 9. Colonoscopy, 2019, mild left-sided diverticulosis with grade 2-3 internal hemorrhoids status post band ligation x 3. Dr. Brenden Oh. History of present illness: Sue Wood is a 63-year-old female with a medical history significant for paroxysmal A-fib s/p ablation on Xarelto, HFpEF, hypothyroidism, anxiety/depression, degenerative disc disease low back who presents with 1 day onset of recurring palpitations and elevated heart rate on her blood pressure cuff. She states it began around 11 PM last night while she was watching a movie with her , with a heart rate as high as 180. She felt palpitations but denied chest pain, shortness of breath during this period. These episodes continued into today and patient decided to come to the ED. Initial EKG showed heart rate 64 with sinus rhythm. CXR showed pulmonary edema, and patient states she has not been taking her medications every day as she is nervous about taking 70 medications. Workup otherwise unremarkable. Dr. Euceda was consulted by the ED who recommended admission for further evaluation of tachyarrhythmias due to history of A-fib. Case discussed with ED provider and decision was made to admit patient for tachyarrhythmia, pulmonary edema. The above per Dr. Taylor Events as noted above confirmed by patient. She does relate intermittently not taking her medications over the last few weeks due to concern with the amount of pills she is taking. EKG showed sinus rhythm on admission. Telemetry has shown sinus rhythm with no arrhythmias during her stay. [facility] Disclaimer: The information contained in this section may have been updated after the patient was seen, as this information can be updated by other users. Medical History Abnormal stress test Abnormal electrocardiography Dyspnea Surgical History Hx of cholecystectomy H/O spinal fusion H/O shoulder surgery H/O knee surgery H/O: hysterectomy Family History Other No significant family history Social History (Updated 06/01/24 @ 16:24 by Kaleigh Linder, RN) Smoking Status: Never smoker second hand exposure: No alcohol intake: never substance use type: denies use current occupational status: other Travel in the last 8 weeks: None household members: spouse housing: house current occupational exposures/hazards: No caffeine: Yes Review of Systems Review of Systems Review of systems:: pertinent systems reviewed and negative unless documented below *Cardiovascular Cardiovascular: Denies chest pain and Reports palpitations Endocrine Endocrine: Reports palpitations Exam Data for Last 24 hours Vital signs and Labs for Last 24 Hours: Temp Pulse Resp BP Pulse Ox O2 Del Method 98 F 66 16 139/58 L 96 Room Air 06/02/24 08:00 06/02/24 08:00 06/02/24 08:00 06/02/24 08:00 06/02/24 08:00 06/02/24 09:00 Laboratory Results - last 24 hr 06/01/24 12:05: WBC 4.5 L, RBC 4.09 L, Hgb 13.2, Hct 41.1, MCV 100.5 H, MCH 32.3 H, MCHC 32.1, RDW 13.5, Plt Count 210, MPV 8.4, Neut % (Auto) 65.8, Lymph % (Auto) 24.3, [place] % (Auto) 5.1, Eos % (Auto) 3.7, Baso % (Auto) 1.1, Neut # (Auto) 3.0, Lymph # (Auto) 1.1, [place] # (Auto) 0.2, Eos # (Auto) 0.2, Baso # (Auto) 0.1, PT 11.3, INR 1.01, Sodium 144, Potassium 4.0, Chloride 112 H, Carbon Dioxide 27, Anion Gap 9.0, BUN 16, Creatinine 0.90, Estimated Creat Clear 46, Estimated GFR 63, Est GFR ( Amer) 77, Glucose 93, Calcium 8.8, Magnesium 2.1, Total Bilirubin 0.3, AST 50 H, ALT 44, Alkaline Phosphatase 74, Troponin I < 0.01, NT-Pro-B Natriuret Pep 462 H, Total Protein 6.4, Albumin 4.0, Globulin 2.4, Albumin/Globulin Ratio 1.7, Hepatitis C Antibody Non reactive, HIV 1&2 Anti body Rapid Nonreactive 06/01/24 15:25: Troponin I < 0.01 06/01/24 18:15: Troponin I < 0.01 06/02/24 05:44: WBC 4.6 L, RBC 3.74 L, Hgb 12.1 L, Hct 36.5 L, MCV 97.5, MCH 32.4 H, MCHC 33.3, RDW 13.4, Plt Count 175, MPV 8.5, Neut % (Auto) 60.7, Lymph % (Auto) 27.5, [place] % (Auto) 6.1, Eos % (Auto) 4.7, Baso % (Auto) 1.0, Neut # (Auto) 2.8, Lymph # (Auto) 1.3, [place] # (Auto) 0.3, Eos # (Auto) 0.2, Baso # (Auto) 0.1, Sodium 144, Potassium 4.0, Chloride 112 H, Carbon Dioxide 26, Anion Gap 10.0, BUN 20 H, Creatinine 1.00, Estimated Creat Clear 43, Estimated GFR 56 L, Est GFR ( Amer) 68, Glucose 105 H, Calcium 8.6, Magnesium 2.0, Total Bilirubin 0.3, AST 42 H, ALT 37, Alkaline Phosphatase 77, Total Protein 5.6 L, Albumin 3.4 L D, Globulin 2.2, Albumin/Globulin Ratio 1.5 I & O for Last 24 hours: Intake & Output 05/30/24 05/31/24 06/01/24 06/02/24 11:59 11:59 11:59 11:59 Intake Total 780 / 780 Output Total 675 / 675 Balance 105 / 105 Weight 240 lb Constitutional Constitutional: no acute distress *Routine Respiratory Exam Respiratory: Present CTA bilaterally *Routine Cardiovascular Exam Cardiovascular: Present RRR *Routine Extremities Exam Extremities: Present edema Meds Home Medications and Allergies Home Medications ?Medication ?Instructions ?Recorded ?Confirmed ?Type topiramate 50 mg tablet 100 mg PO BID 08/20/17 06/01/24 History ferrous sulfate 325 mg (65 mg 325 mg PO BID 05/06/18 06/01/24 History iron) tablet pramipexole 1 mg tablet 1 mg PO TID 05/06/18 06/01/24 History pantoprazole 40 mg tablet,delayed 40 mg PO DAILY 05/28/20 06/01/24 History release potassium chloride 10 mEq 10 meq PO BID 05/17/21 06/01/24 History capsule,extended release metoprolol succinate 25 mg 25 mg PO DAILY 10/01/21 06/01/24 History tablet,extended release 24 hr rivaroxaban 20 mg tablet 20 mg PO DAILY 10/01/21 06/01/24 History nitroglycerin 0.4 mg sublingual 0.4 mg sublingual Q5-15M PRN chest 04/29/23 06/01/24 Rx tablet pain #30 tabs cyanocobalamin (vitamin B-12) 500 500 mcg PO WEEKLY 06/11/23 06/01/24 History mcg tablet alendronate 70 mg tablet 70 mg PO WEEKLY 12/30/23 06/01/24 History bumetanide 1 mg tablet 1 mg PO BID 12/30/23 06/01/24 History levothyroxine 137 mcg tablet 137 mcg PO DAILY 12/30/23 06/01/24 History hydrocodone 10 mg-acetaminophen 1 tab PO QIDP PRN Pain (Scale 06/01/24 06/01/24 History 325 mg tablet Score 4-6) venlafaxine 150 mg tablet,extended 150 mg PO BID 06/01/24 06/01/24 History release 24 hr New Prescriptions to Start Prescriptions: Allergies Allergy/AdvReac Type Severity Reaction Status Date / Time gabapentin Allergy Verified 12/30/23 10:57 hyaluronic acid (From AdvReac Severe Verified 12/30/23 10:57 Supartz) Assessment and Plan *Assessment and plan (1) Tachyarrhythmia: Status: Acute Category: Medical Code(s): R00.0 - Tachycardia, unspecified (2) Hypertension: Status: Chronic Qualifiers: Hypertension type: primary hypertension Qualified Code(s): I10 - Essential (primary) hypertension Category: Medical Code(s): I10 - Essential (primary) hypertension (3) Atrial fibrillation: Status: Chronic Qualifiers: Atrial fibrillation type: paroxysmal Qualified Code(s): I48.0 - Paroxysmal atrial fibrillation Category: Medical Code(s): I48.91 - Unspecified atrial fibrillation (4) snf current use of anticoagulant: Status: Acute Category: Medical Code(s): 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 Palpitations with history of A. fib/ablation -sinus here but will recommend event monitor at discharge -non-compliance with meds recently. Strongly encouraged compliance -check thyroid panel but recently normal earlier this year 2. PAF -on Xarelto and metoprolol 3. History of HFpEF with Elevated BNP, mild -continue bumex 4. Anxiety Stable from a cardiac standpoint for discharge home. Recommend event monitor at discharge for evaluation of palpitations. Strongly encouraged compliance with medications. Home medications Bumex 1 mg twice daily Metoprolol succinate 25 mg daily Xarelto 20 mg daily Potassium 10 mill equivalents twice daily Follow-up in office in 3 to 4 weeks.
[2024-06-02 11:07] LABS: Free Thyroxine Index 1.8 ug/dL (5.93-13.13); T4 (Thyroxine) 4.8 ug/dl (5.53-11.0); Triiodothryronine (T3) Uptake 37 % (23.5-40.5)
[2024-06-02 11:20] LABS: Thyroid Stimulating Hormone 8.02 uIU/mL (0.465-4.68)
--- NOTE | 2024-06-02 11:53 | ECG_ITS ---
APPROVED REPORT Exam: Resting ECG HR:49 bpm ECG Measurements Heart Rate 49 AXES RI 176 P 72 QRSd 92 QRS 63 QT 441 T 39 QTc 412 Conclusion SINUS BRADYCARDIA BORDERLINE ECG UNCONFIRMED REPORT Electronically signed by : Ulises Negrete MD 06/02/2024 20:54:23
--- NOTE | 2024-06-02 11:57 | CT_ITS ---
FINAL REPORT TECHNIQUE: After the administration of oral and intravenous contrast, axial images were obtained through the abdomen and pelvis by computed tomography. The study was performed with techniques to keep radiation dose as low as reasonably achievable, (ALARA). Individual dose reduction techniques using automated exposure control or adjustment of mA and/or kV according to the patient's size were employed. CLINICAL HISTORY: epigastric abdominal pain FINDINGS: Abdomen: There is mild atelectasis or scar in the lung bases. There is fatty infiltration of the liver. Patient is status postcholecystectomy. There is mild biliary ductal dilatation, favor postcholecystectomy change. Postoperative changes are seen in the stomach. The spleen is unremarkable. The adrenals are normal. The pancreas is unremarkable. The kidneys enhance appropriately. The aorta is normal in caliber. There is no free fluid or adenopathy. Pelvis: The appendix is not identified. Patient is status post hysterectomy. There are multiple fluid-filled bowel loops in a nonspecific pattern. The urinary bladder is unremarkable. There is no free fluid or adenopathy. IMPRESSION: Mild biliary ductal dilatation, favor postcholecystectomy change. Multiple fluid-filled bowel loops in a nonspecific pattern. Reviewed, Interpreted and Dictated by Woody Chopra III, MD Transcribed by Lis Parisi Authenticated and [facility]
[2024-06-02] MEDS: BELLADONNA ALKALOIDS 60 ML ML PO (11:59)
[2024-06-02 12:03] LABS: POC Glucose,Bedside 109 (70-110)
--- NOTE | 2024-06-02 12:14 | PC.NURSE ---
tech notified this RN of pt reporting chest pain under the left breast at 1145. when i entered the room pt was supine in bed, leaned forward with noted tremors and reporting soa. i auscultated her lungs which were clear, placed 2LNC on pt for comfort, assessed vitals (WNL, HR shayla @ 57). RT was paged for a STAT EKG (1143) and MD was called to bedside (1142). EKG cleared by MD. MD assessed pt with no new significant findings. pt reported that she had just eaten some chips and this may be causing her discomfort. GI cocktail administered per AUG and MD ordered abdominal CT. after about 10 minutes pt expressed that she was feeling some relief and that this event was similar to the one she experienced last night. she explains that she deals with intermittent anxiety. pt encouraged to relax,and practice breathing exercises. pt is calm at this time with no further needs or complaints.
[2024-06-02] MEDS: SODIUM CHLORIDE 0.9% 10ML SYR (RAD ONLY) 10 ML IV (12:33)
[2024-06-02] MEDS: IOPAMIDOL-370 (76%);100ML BOTTLE 75 ML IV (12:33)
--- NOTE | 2024-06-02 14:05 | P.DS_ITS ---
General Admission date:: 06/01/24 HPI HPI HPI: Sue Wood is a 63-year-old female with a medical history significant for paroxysmal A-fib s/p ablation on Xarelto, HFpEF, hypothyroidism, anxiety/depression, degenerative disc disease low back who presents with 1 day onset of recurring palpitations and elevated heart rate on her blood pressure cuff. She states it began around 11 PM last night while she was watching a movie with her , with a heart rate as high as 180. She felt palpitations but denied chest pain, shortness of breath during this period. These episodes continued into today and patient decided to come to the ED. Initial EKG showed heart rate 64 with sinus rhythm. CXR showed pulmonary edema, and patient states she has not been taking her medications every day as she is nervous about taking 70 medications. Workup otherwise unremarkable. Dr. Euceda was consulted by the ED who recommended admission for further evaluation of tachyarrhythmias due to history of A-fib. Case discussed with ED provider and decision was made to admit patient for tachyarrhythmia, pulmonary edema. Hospital Course Hospital Course Hospital Course: Counseled on medication adherence. Sue Wood is a 63-year-old female with a medical history significant for paroxysmal A-fib s/p ablation on Xarelto, HFpEF, hypothyroidism, anxiety/depression, degenerative disc disease low back who presents with 1 day onset of recurring palpitations and elevated heart rate on her blood pressure cuff. She states it began around 11 PM last night while she was watching a movie with her , with a heart rate as high as 180. She felt palpitations but denied chest pain, shortness of breath during this period. These episodes continued into today and patient decided to come to the ED. Initial EKG showed heart rate 64 with sinus rhythm. CXR showed pulmonary edema, and patient states she has not been taking her medications every day as she is nervous about taking 7 medications. Workup otherwise unremarkable. Dr. Euceda was consulted by the ED who recommended admission for further evaluation of tachyarrhythmias due to history of A-fib. Case discussed with ED provider and decision was made to admit patient for tachyarrhythmia, pulmonary edema. #Tachyarrhythmia, resolved #HFpEF exacerbation #History of A-fib s/p ablation ? On admission, patient was in normal sinus rhythm with heart rate in the 50s and 60s, comfortable and conversational. ? CXR does suggest vascular congestion, BNP 462. No significant peripheral edema. - It is possible pulmonary edema triggered Afib RVR at home. ? Patient states she has not been adherent to her medications every day as she is nervous about taking so many medications. ? Resumed home Bumex 1 mg twice daily. - Resumed home metoprolol succinate 25mg, Xarelto 20mg. - Cardiology consulted, did not recommend interventions at this. Recommended and counseled patient on medication adherence. - Discharged with event monitor, will follow-up with cardiology within 2 weeks. #Hypothyroidism - TSH elevated 8.02, T4 low. - Will increase levothroxine from 137 to 150mcg. #Anxiety/depression - Resumed home velafaxine at lower dose of 150mg daily due to risk of arrythmias. FULL CODE Xarelto 20mg Exam Data for Last 24 hours Vital signs and Labs for Last 24 Hours: Temp Pulse Resp BP Pulse Ox O2 Del Method 98 F 58 L 16 119/70 99 Room Air 06/02/24 12:00 06/02/24 12:00 06/02/24 12:00 06/02/24 12:00 06/02/24 12:00 06/02/24 13:00 Laboratory Results - last 24 hr 06/01/24 12:05: Hepatitis C Antibody Non reactive, HIV 1&2 Antibody Rapid Nonreactive 06/01/24 15:25: Troponin I < 0.01 06/01/24 18:15: Troponin I < 0.01 06/02/24 05:44: WBC 4.6 L, RBC 3.74 L, Hgb 12.1 L, Hct 36.5 L, MCV 97.5, MCH 32.4 H, MCHC 33.3, RDW 13.4, Plt Count 175, MPV 8.5, Neut % (Auto) 60.7, Lymph % (Auto) 27.5, [place] % (Auto) 6.1, Eos % (Auto) 4.7, Baso % (Auto) 1.0, Neut # (Auto) 2.8, Lymph # (Auto) 1.3, [place] # (Auto) 0.3, Eos # (Auto) 0.2, Baso # (Auto) 0.1, Sodium 144, Potassium 4.0, Chloride 112 H, Carbon Dioxide 26, Anion Gap 10.0, BUN 20 H, Creatinine 1.00, Estimated Creat Clear 43, Estimated GFR 56 L, Est GFR ( Amer) 68, Glucose 105 H, Calcium 8.6, Magnesium 2.0, Total Bilirubin 0.3, AST 42 H, ALT 37, Alkaline Phosphatase 77, Total Protein 5.6 L, Albumin 3.4 L D, Globulin 2.2, Albumin/Globulin Ratio 1.5, TSH 8.02 H, Free T4 Index 1.8 L, Thyroxine (T4) 4.8 L, T3 Uptake 37 06/02/24 11:53: POC Glucose 109 I & O for Last 24 hours: Intake & Output 05/30/24 05/31/24 06/01/24 06/02/24 23:59 23:59 23:59 23:59 Intake Total 780 / 780 Output Total 0 / 0 1375 / 1375 Balance 0 / 480 -595 / -595 Weight 106.73 kg 108.862 kg Results Data Completed and Pending Labs on day of discharge: Labs from last 24 hours 06/02/24 06/02/24 06/01/24 11:53 05:44 18:15 WBC 4.6 L RBC 3.74 L Hgb 12.1 L Hct 36.5 L MCV 97.5 MCH 32.4 H MCHC 33.3 RDW 13.4 Plt Count 175 MPV 8.5 Neut % (Auto) 60.7 Lymph % (Auto) 27.5 [place] % (Auto) 6.1 Eos % (Auto) 4.7 Baso % (Auto) 1.0 Neut # (Auto) 2.8 Lymph # (Auto) 1.3 [place] # (Auto) 0.3 Eos # (Auto) 0.2 Baso # (Auto) 0.1 Sodium 144 Potassium 4.0 Chloride 112 H Carbon Dioxide 26 Anion Gap 10.0 BUN 20 H Creatinine 1.00 Estimated Creat Clear 43 Estimated GFR 56 L Est GFR ( Amer) 68 Glucose 105 H POC Glucose 109 Calcium 8.6 Magnesium 2.0 Total Bilirubin 0.3 AST 42 H ALT 37 Alkaline Phosphatase 77 Troponin I < 0.01 Total Protein 5.6 L Albumin 3.4 L D Globulin 2.2 Albumin/Globulin Ratio 1.5 TSH 8.02 H Free T4 Index 1.8 L Thyroxine (T4) 4.8 L T3 Uptake 37 Hepatitis C Antibody HIV 1&2 Antibody Rapid 06/01/24 06/01/24 15:25 12:05 WBC RBC Hgb Hct MCV MCH MCHC RDW Plt Count MPV Neut % (Auto) Lymph % (Auto) [place] % (Auto) Eos % (Auto) Baso % (Auto) Neut # (Auto) Lymph # (Auto) [place] # (Auto) Eos # (Auto) Baso # (Auto) Sodium Potassium Chloride Carbon Dioxide Anion Gap BUN Creatinine Estimated Creat Clear Estimated GFR Est GFR ( Amer) Glucose POC Glucose Calcium Magnesium Total Bilirubin AST ALT Alkaline Phosphatase Troponin I < 0.01 Total Protein Albumin Globulin Albumin/Globulin Ratio TSH Free T4 Index Thyroxine (T4) T3 Uptake Hepatitis C Antibody Non reactive HIV 1&2 Antibody Rapid Nonreactive DS: Diagnosis Discharge Diagnosis (1) Tachyarrhythmia: Status: Acute Code(s): R00.0 - Tachycardia, unspecified (2) Hypertension: Status: Chronic Code(s): I10 - Essential (primary) hypertension Qualifiers: Hypertension type: primary hypertension Qualified Code(s): I10 - Essential (primary) hypertension (3) Atrial fibrillation: Status: Chronic Code(s): I48.91 - Unspecified atrial fibrillation Qualifiers: Atrial fibrillation type: paroxysmal Qualified Code(s): I48.0 - Paroxysmal atrial fibrillation (4) FPC current use of anticoagulant: Status: Acute Code(s): Z79.01 - FPC (current) use of anticoagulants Meds Home Medications and Allergies Home Medications ?Medication ?Instructions ?Recorded ?Confirmed ?Type topiramate 50 mg tablet 100 mg PO BID 08/20/17 06/08/24 History ferrous sulfate 325 mg (65 mg 325 mg PO BID 05/06/18 06/08/24 History iron) tablet pramipexole 1 mg tablet 1 mg PO TID 05/06/18 06/08/24 History pantoprazole 40 mg tablet,delayed 40 mg PO DAILY 05/28/20 06/08/24 History release potassium chloride 10 mEq 10 meq PO BID 05/17/21 06/08/24 History capsule,extended release rivaroxaban 20 mg tablet 20 mg PO DAILY 10/01/21 06/08/24 History nitroglycerin 0.4 mg sublingual 0.4 mg sublingual Q5-15M PRN chest 04/29/23 06/08/24 Rx tablet pain #30 tabs cyanocobalamin (vitamin B-12) 500 500 mcg PO WEEKLY 06/11/23 06/08/24 History mcg tablet alendronate 70 mg tablet 70 mg PO WEEKLY 12/30/23 06/08/24 History bumetanide 1 mg tablet 1 mg PO BID 12/30/23 06/08/24 History metoprolol succinate 25 mg 25 mg PO DAILY 30 days #30 tabs 06/02/24 06/08/24 Rx tablet,extended release 24 hr venlafaxine 150 mg tablet,extended 150 mg PO DAILY 30 days #0 tabs 06/02/24 06/08/24 Rx release 24 hr hydrocodone 10 mg-acetaminophen 1 tab PO QIDP PRN Pain (Scale 06/04/24 06/08/24 Rx 325 mg tablet Score 4-6) #120 tabs levothyroxine 150 mcg capsule 150 mcg PO DAILY #30 caps 06/14/24 Rx New Prescriptions to Start Prescriptions: levothyroxine Kavon Taylor metoprolol succinate Kavon Taylor Allergies Allergy/AdvReac Type Severity Reaction Status Date / Time gabapentin Allergy Verified 06/08/24 09:45 hyaluronic acid (From AdvReac Severe Verified 06/08/24 09:45 Supartz) Discharge Plan Disposition Patient Disposition: Home, Self-Care Condition: Good Follow up Plan Follow up with: Yonatan Euceda MD [Staff Physician] - 06/08/24 9:30 am Ulises Judd MD [Referring] - 06/08/24 11:15 am Prescriptions/Medication Reconciliation: New levothyroxine 150 mcg capsule 150 mcg PO DAILY Qty: 30 0RF Continued potassium chloride 10 mEq capsule, extended release 10 meq PO BID cyanocobalamin (vitamin B-12) 500 mcg tablet 500 mcg PO WEEKLY Patient Comments: TAKE ONE TABLET BY MOUTH EVERY WEEK nitroglycerin 0.4 mg tablet, sublingual 0.4 mg sublingual Q5-15M PRN (Reason: chest pain) Qty: 30 1RF Rx Instructions: do not exceed 3 doses per episode alendronate 70 mg tablet 70 mg PO WEEKLY bumetanide 1 mg tablet 1 mg PO BID rivaroxaban 20 MG tablet 20 mg PO DAILY Rx Instructions: must administer with evening meal metoprolol succinate 25 MG tablet extended release 24 hr 25 mg PO DAILY 30 Days Qty: 30 0RF topiramate 50 tablet 100 mg PO BID Patient Comments: ferrous sulfate 325 MG tablet 325 mg PO BID pramipexole 1 tablet 1 mg PO TID pantoprazole 40 MG tablet,delayed release (DR/EC) 40 mg PO DAILY Changed venlafaxine 150 mg tablet extended release 24hr 150 mg PO DAILY 30 Days Qty: 0 0RF Discontinued levothyroxine 137 mcg tablet 137 mcg PO DAILY No Action hydrocodone-acetaminophen 10-325 mg tablet 1 tab PO QIDP PRN (Reason: Pain (Scale Score 4-6)) Qty: 120 0RF Problem Reconciliation Problems Reviewed?: Yes Patient Discharge Instructions Patient Instructions: DI for Chest Pain Print Language: Vietnamese Providers Primary Care Provider: Provider,Referral Admit Provider: Kavon Taylor Attending Provider: Kavon Taylor
--- NOTE | 2024-06-04 11:40 | SW/DCPLANNER ---
Spoke with rommel on the phone. Patient stated that she is doing well. Patient stated that she is aware of her upcoming appointments and that she has no concerns or questions at this time. Tony Espinosa
== END 2024-06-02 16:55 | disposition home or self-care (01) ==
LOC: ER 14:37 → 2ND 15:18
PROVIDERS: Physician Assistant; Admitting Provider Student in an Organized Health Care Education/Training Program; Emergency Provider Emergency Medicine; Visit Provider Student in an Organized Health Care Education/Training Program
DX: I48.0 Paroxysmal atrial fibrillation (principal); R00.0 Tachycardia, unspecified; I11.0 Hypertensive heart disease with heart failure; Z79.01 Long term (current) use of anticoagulants; Z79.899 Other long term (current) drug therapy; E03.9 Hypothyroidism, unspecified; I50.30 Unspecified diastolic (congestive) heart failure
CPT/HCPCS: 36415; 71046; 74177; 80053; 82962; 83735; 83880; 84436; 84443; 84479; 84484; 85025; 85610; 86803; 87389; 93005; 99285; G0378; Q9967

== ENCOUNTER 2024-06-04 09:51 | Outpatient (POV) | payer MEDICARE, SELFPAY ==
[2024-06-04 10:14] VITALS: BP 137/63; PULSE 60; RESP 16; O2SAT 100; BMI 42.0
--- NOTE | 2024-06-04 10:20 | EXP.PAIN.SOA ---
[facility] Disclaimer: The information contained in this section may have been updated after the patient was seen, as this information can be updated by other users. Medical History (Updated 06/04/24 @ 10:23 by Mamta Traore APRN) Abnormal stress test Abnormal electrocardiography Dyspnea Surgical History Hx of cholecystectomy H/O spinal fusion H/O shoulder surgery H/O knee surgery H/O: hysterectomy Family History Other No significant family history Social History (Updated 06/01/24 @ 16:24 by Kaleigh Linder RN) Smoking Status: Never smoker second hand exposure: No alcohol intake: never substance use type: denies use current occupational status: other Travel in the last 8 weeks: None household members: spouse housing: house current occupational exposures/hazards: No caffeine: Yes PM Subjective & Objective Subjective Subjective:: Patient is a pleasant 63-year-old female who presents today for medication refill and worsening pain. Today she does rate her pain a 9 out of 10. Patient states that she still has her chronic low back pain but is having worsening knee pain bilaterally. Patient has had her left knee replaced in the past. She does describe this as a constant aching, throbbing with any type of additional ambulation or movement. Patient has had intra-articular injections on the right knee and has had significant improvement of at least 50%. This last injection was back in September. Patient does state due to the worsening pain it is interfering with her ability perform activities of daily living and she would like to see about getting some additional injections. Patient does state from her last visit that she has also seen Dr. Traore in [place] and at this time they are holding off on any surgery. She does state that he gave a new order for additional assistive devices and that she does feel like her overall back pain has just progressively worsened. Patient is currently managed with Tekonsha 7.5 mg 4 times a day from our office. She denies any side effects from this medication. Her Tavo has been reviewed and is appropriate. Review of Systems: General: No recent weight changes, no fever, no sleep disturbances Respiratory: No cough, no shortness of air, no recurring pulmonary infections Cardiovascular/peripheral vascular: No chest pain, no palpitations, no edema, no shortness of breath Gastrointestinal: No new onset incontinence, normal bowel movements reported Genitourinary: No new onset incontinence Musculoskeletal: Bilateral knee pain, low back pain Psychiatric: [Normal mood/affect] Neurological: [Denies weakness in extremities], [denies balance issues] Pain at rest (0-10 scale): 9 Objective Objective:: Physical Exam: General: Alert and oriented x3, no acute distress, pleasant and cooperative Lungs: Respirations even and unlabored, symmetrical chest expansion Eyes: PERRL Musculoskeletal: Flexion and extension of bilateral knees somewhat guarded secondary to pain, [antalgic gait noted] Neurological: Speech clear, no gross sensory deficit Has patient had previous pain injection?: No Conservative treatment options previously tried: Home exercise plan Length of treatment: Longer than 12 weeks Meds Home Medications and Allergies Home Medications ?Medication ?Instructions ?Recorded ?Confirmed ?Type topiramate 50 mg tablet 100 mg PO BID 08/20/17 06/04/24 History ferrous sulfate 325 mg (65 mg 325 mg PO BID 05/06/18 06/04/24 History iron) tablet pramipexole 1 mg tablet 1 mg PO TID 05/06/18 06/04/24 History pantoprazole 40 mg tablet,delayed 40 mg PO DAILY 05/28/20 06/04/24 History release potassium chloride 10 mEq 10 meq PO BID 05/17/21 06/04/24 History capsule,extended release rivaroxaban 20 mg tablet 20 mg PO DAILY 10/01/21 06/04/24 History nitroglycerin 0.4 mg sublingual 0.4 mg sublingual Q5-15M PRN chest 04/29/23 06/04/24 Rx tablet pain #30 tabs cyanocobalamin (vitamin B-12) 500 500 mcg PO WEEKLY 06/11/23 06/04/24 History mcg tablet alendronate 70 mg tablet 70 mg PO WEEKLY 12/30/23 06/04/24 History bumetanide 1 mg tablet 1 mg PO BID 12/30/23 06/04/24 History levothyroxine 137 mcg tablet 137 mcg PO DAILY 12/30/23 06/04/24 History hydrocodone 10 mg-acetaminophen 1 tab PO QIDP PRN Pain (Scale 06/01/24 06/04/24 History 325 mg tablet Score 4-6) metoprolol succinate 25 mg 25 mg PO DAILY 30 days #30 tabs 06/02/24 06/04/24 Rx tablet,extended release 24 hr venlafaxine 150 mg tablet,extended 150 mg PO DAILY 30 days #0 tabs 06/02/24 06/04/24 Rx release 24 hr New Prescriptions to Start Prescriptions: Allergies Allergy/AdvReac Type Severity Reaction Status Date / Time gabapentin Allergy Verified 12/30/23 10:57 hyaluronic acid (From AdvReac Severe Verified 12/30/23 10:57 Supartz) Assessment and Plan *Assessment and plan (1) Bilateral knee pain: Status: Acute Category: Medical Code(s): M25.561 - Pain in right knee; M25.562 - Pain in left knee Plan Patient is experiencing significant pain in her bilateral knees with limited range of motion. I did discuss with patient due to her having a prior left knee replacement that she may benefit from a infrapatellar nerve block on the left side and a repeat intra-articular right knee injection. Risk and benefits were discussed with patient and she would like to proceed forward with this plan of care. Patient has tried and failed conservative therapy including continued at home stretching exercise for longer than 12 weeks. I will refill the patient's Tekonsha and provide a 1 month supply of this medication. Patient will return to clinic for right intra-articular knee injection and left infrapatellar nerve block under fluoroscopy. \ Risks and benefits of the medication have been explained in detail to the patient. The patient does understand the risk of dependence on the medication when given over a prolonged period. Patient has been advised of risks of oversedation with the prescribed medication. Narcan has been offered to the paitent in the event of oversedation. Patient has been advised that a family member should also be educated regarding administration of Narcan. The patient has been advised to consult with his/her primary care provider and pharmacist regarding drug-drug interaction of medications currently prescribed. Patient has been prescribed a controlled substance after being counseled on the medication, medication safety, and possible side effects. Opioid contract was reviewed and signed by the patient, and that they have agreed to all of the terms set forth by our compliance program. Patient has been instructed to contact the clinic with any concerns before the next appointment. Dr. Barnett has reviewed this note and agrees with this plan of care. This note was dictated using voice recognition software and make contain errors or omissions.
== END 2024-06-04 23:59 | disposition home or self-care (01) ==
PROVIDERS: PCP Family Medicine; Visit Provider Nurse Practitioner Family
DX: M25.561 Pain in right knee (principal); M25.562 Pain in left knee; Z73.89 Other problems related to life management difficulty; Z79.899 Other long term (current) drug therapy
CPT/HCPCS: 99212; G0463

== ENCOUNTER 2024-07-01 15:34 | Emergency (ER) | payer MEDICARE, SELFPAY ==
--- NOTE | 2024-07-01 15:58 | ED_ITS ---
Discharge Plan Disposition Patient Disposition: Home, Self-Care Condition: Good Prescriptions Prescriptions: New benzonatate 100 mg capsule 100 mg PO TIDP PRN (Reason: Cough) Qty: 30 0RF methylprednisolone 4 mg Tablets,Dose Pack 4 mg PO DIRECTED 6 Days Qty: 21 0RF Rx Instructions: Take 1 pack as directed for 6 days cefdinir 300 mg capsule 300 mg PO BID Qty: 20 0RF No Action potassium chloride 10 mEq capsule, extended release 10 meq PO BID cyanocobalamin (vitamin B-12) 500 mcg tablet 500 mcg PO WEEKLY Patient Comments: TAKE ONE TABLET BY MOUTH EVERY WEEK nitroglycerin 0.4 mg tablet, sublingual 0.4 mg sublingual Q5-15M PRN (Reason: chest pain) Qty: 30 1RF Rx Instructions: do not exceed 3 doses per episode alendronate 70 mg tablet 70 mg PO WEEKLY bumetanide 1 mg tablet 1 mg PO BID rivaroxaban 20 MG tablet 20 mg PO DAILY Rx Instructions: must administer with evening meal metoprolol succinate 25 MG tablet extended release 24 hr 25 mg PO DAILY 30 Days Qty: 30 0RF venlafaxine 150 mg tablet extended release 24hr 150 mg PO DAILY 30 Days Qty: 0 0RF levothyroxine 150 mcg capsule 150 mcg PO DAILY Qty: 30 0RF topiramate 50 tablet 100 mg PO BID Patient Comments: ferrous sulfate 325 MG tablet 325 mg PO BID pramipexole 1 tablet 1 mg PO TID pantoprazole 40 MG tablet,delayed release (DR/EC) 40 mg PO DAILY hydrocodone-acetaminophen 10-325 mg tablet 1 tab PO QIDP PRN (Reason: Pain (Scale Score 4-6)) Qty: 120 0RF Referrals Follow up/Referrals: Ulises Judd MD [Primary Care Provider] - See instructions Activity Restrictions/Add. Instructions Additional Instructions/Restrictions: Drink plenty of fluids. Take tylenol or ibuprofen for pain or fever. Take the medications as directed. Follow up with your regular doctor. GO TO THE ER FOR ANY WORSENING SYMPTOMS Use the incentive spirometer 10 times every 4 hours while you are awake for the next couple of weeks. Clinical Impressions Clinical Impression: Acute bronchitis, Pleurisy, Acute viral syndrome Instructions Patient Instructions: DI for Acute Bronchitis, DI for Pleurisy Print Language Print Language: [place] Discharge ED Provider: Thaddeus Jameson [facility] [place] HPI General Stated complaint: cough, temo vomiting, diarrhea Time Seen by Provider: 07/01/24 15:58 Related Data Home Medications ?Medication ?Instructions ?Recorded ?Confirmed topiramate 50 mg tablet 100 mg PO BID 08/20/17 06/08/24 ferrous sulfate 325 mg (65 mg 325 mg PO BID 05/06/18 06/08/24 iron) tablet pramipexole 1 mg tablet 1 mg PO TID 05/06/18 06/08/24 pantoprazole 40 mg tablet,delayed 40 mg PO DAILY 05/28/20 06/08/24 release potassium chloride 10 mEq 10 meq PO BID 05/17/21 06/08/24 capsule,extended release rivaroxaban 20 mg tablet 20 mg PO DAILY 10/01/21 06/08/24 cyanocobalamin (vitamin B-12) 500 500 mcg PO WEEKLY 06/11/23 06/08/24 mcg tablet alendronate 70 mg tablet 70 mg PO WEEKLY 12/30/23 06/08/24 bumetanide 1 mg tablet 1 mg PO BID 12/30/23 06/08/24 Previous Rx's ?Medication ?Instructions ?Recorded nitroglycerin 0.4 mg sublingual 0.4 mg sublingual Q5-15M PRN chest 04/29/23 tablet pain #30 tabs metoprolol succinate 25 mg 25 mg PO DAILY 30 days #30 tabs 06/02/24 tablet,extended release 24 hr venlafaxine 150 mg tablet,extended 150 mg PO DAILY 30 days #0 tabs 06/02/24 release 24 hr hydrocodone 10 mg-acetaminophen 1 tab PO QIDP PRN Pain (Scale 06/04/24 325 mg tablet Score 4-6) #120 tabs levothyroxine 150 mcg capsule 150 mcg PO DAILY #30 caps 06/14/24 benzonatate 100 mg capsule 100 mg PO TIDP PRN Cough #30 caps 07/01/24 cefdinir 300 mg capsule 300 mg PO BID #20 caps 07/01/24 methylprednisolone 4 mg tablets in 4 mg PO DIRECTED 6 days #21 tabs 07/01/24 a dose pack Allergies Allergy/AdvReac Type Severity Reaction Status Date / Time gabapentin Allergy Verified 06/08/24 09:45 hyaluronic acid (From AdvReac Severe Verified 06/08/24 09:45 Supartz) [facility] Disclaimer: The information contained in this section may have been updated after the patient was seen, as this information can be updated by other users. Medical History Abnormal stress test Abnormal electrocardiography Dyspnea Surgical History Hx of cholecystectomy H/O spinal fusion H/O shoulder surgery H/O knee surgery H/O: hysterectomy Family History Other No significant family history Social History Smoking Status: Never smoker second hand exposure: No alcohol intake: never substance use type: denies use current occupational status: other Travel in the last 8 weeks: None household members: spouse housing: house current occupational exposures/hazards: No caffeine: Yes Have you lived/traveled outside [place] in past 30 days?: No Contact w/someone who lives/traveled outside [place] past 30 days?: No Exposure to someone with infectious disease in past 14 days?: No Do you have a fever (greater than 100.4 F or 38 C)?: No Have you tested positive for COVID-19: No Exposed to someone with COVID-19 in past 14 days?: No Do you have a sore throat?: No Do you have a cough?: Yes Do you have any weakness?: No Do you have any diarrhea?: Yes Are you experiencing any unusual bleeding?: No Do you have any muscle aches/pain?: No Do you have any abdominal pain?: No Are you experiencing loss of taste or smell?: No ROS Obtained: Yes All systems reviewed & no additional complaints except as documented Constitutional Constitutional: Reports chills and Reports fever(s) Eyes Eyes: Denies eye discharge ENT Ears, Nose, Mouth, and Throat: Reports as per HPI Cardiovascular Cardiovascular: Denies chest pain Respiratory Respiratory: Reports chest congestion and Reports cough Gastrointestinal Gastrointestingal: Reports nausea; Denies abdominal pain, constipation, cramping, diarrhea or vomiting Musculoskeletal Musculoskeletal: Denies arthralgias Integumentary/Breasts Skin/Breast: Denies rash Neurologic Neurologic: Denies paresthesias Physical Exam General General appearance: alert and in no apparent distress Eye Eye exam: Present normal appearance, PERRL and EOMI ENT ENT exam: Present mucous membranes moist and normal external ear exam Expanded ENT Exam External ear exam: Present normal external inspection TM/Canal exam: Bilateral TM: erythema and bulging Nose exam: Absent sinus tenderness Nasal speculum exam: Bilateral: normal Mouth exam: Present normal external inspection; Absent drooling Teeth exam: Present normal inspection Throat exam: Present tonsillar erythema and tonsillomegaly Neck Neck exam: Present normal inspection, full ROM and trachea midline; Absent tenderness, lymphadenopathy or thyromegaly Chest Chest inspection: Present normal inspection and symmetric chest wall rise; Absent tenderness or rash Respiratory Respiratory exam: Present normal lung sounds bilaterally; Absent respiratory distress, wheezes, stridor or accessory muscle use Cardiovascular Cardiovascular exam: Present regular rate, normal rhythm and normal heart sounds Abdominal Exam Abdominal exam: Present soft; Absent distention, tenderness, guarding, rebound or rigidity Extremities Exam Extremities exam: Present normal inspection, full ROM and normal capillary refill; Absent tenderness or calf tenderness Back Exam Back exam: Present normal inspection and full ROM; Absent tenderness Neurological Exam Neurological exam: Present alert and oriented X3 Psychiatric Psychiatric exam: Present normal affect and normal mood Skin Skin exam: Present warm, dry, intact and normal color Lymphatic Lymphatic Findings: no adenopathy Medical Decision Making Medical Records Medical records reviewed: No I reviewed the patient's medical records. Screening: Per USPSTF and CDC recommendations, given the prevalence of disease in our region, it is our hospital?s policy to screen for HIV and viral Hepatitis for all patients aged 18 and over and those with ongoing risk factors. Tavo Inquiry Pt receiving controlled substance: No Lab Data Lab results reviewed: Yes I reviewed the patient's lab results.
--- NOTE | 2024-07-01 16:07 | XR_ITS ---
PROCEDURE INFORMATION: Exam: XR Right Ribs with PA Chest Exam date and time: 07/01/2024 4:14 PM Age: 63 years old Clinical indication: Painful respiration; Additional info: Cough TECHNIQUE: Imaging protocol: Radiologic exam of the right ribs with PA chest. Views: 3 views COMPARISON: CR XR CHEST 2V 06/01/2024 1:31 PM FINDINGS: Lungs: Normal. Pleural spaces: Normal. No pleural effusion. No pneumothorax. Heart/Mediastinum: Normal. No cardiomegaly. Vasculature: Tortuous atherosclerotic thoracic aorta. Bones/joints: Cervicothoracic spine fusion hardware in place. Old right posterior 10th rib fracture. Thoracic spine dextroscoliosis. Organs: Status post cholecystectomy. IMPRESSION: 1. No acute findings. 2. Old right posterior 10th rib fracture.
[2024-07-01 16:13] VITALS: BP 135/53; PULSE 57; RESP 20; TEMP 36.7; O2SAT 97; BMI 36.6
[2024-07-01 17:15] VITALS: BP 135/53; PULSE 57; RESP 18; TEMP 36.7
[2024-07-01 17:20] LABS: Coronavirus 19, PCR Not Detected (NotDetected); Influenza A, PCR Not Detected (NotDetected); Influenza B, PCR Not Detected (NotDetected)
== END 2024-07-01 17:20 | disposition home or self-care (01) ==
PROVIDERS: Emergency Provider Nurse Practitioner Family; PCP Family Medicine
DX: J20.9 Acute bronchitis, unspecified (principal); R09.1 Pleurisy
CPT/HCPCS: 71101; 87636; 99213; G0381

== ENCOUNTER 2024-07-06 10:00 | Day surgery (SDC) | payer MEDICARE, SELFPAY ==
[2024-07-06 10:11] VITALS: BP 147/77; PULSE 67; RESP 16; TEMP 36.6; O2SAT 97; BMI 41.5
[2024-07-06] MEDS: methylPREDNISolone ACETATE 80MG/ML VIAL 80 MG (10:19)
[2024-07-06] MEDS: LIDOCAINE 1% 5ML PF VIAL 5 ML (10:20)
[2024-07-06 10:21] VITALS: BP 155/90; PULSE 64; RESP 18; O2SAT 95
[2024-07-06] MEDS: BUPIVACAINE 0.25% 10ML INJ 25 MG IJ (10:21)
[2024-07-06 10:27] VITALS: BP 155/99; PULSE 64; RESP 18; O2SAT 95
--- NOTE | 2024-07-06 10:29 | EXP.PAIN.PRO ---
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 Chronic bilateral knee pain. Post-procedure Diagnosis:: Same. Indications for Procedure:: Patient is a pleasant 63-year-old female who comes our clinic today for right intra-articular knee injection. Patient has responded well in the past to intra-articular cortisone and local anesthetic in the right knee. She rates her pain in the right knee 7/10. Also, patient receiving left infrapatellar nerve block for the chronic left knee pain. She rates her pain 7/10 in the left knee. Procedure Details:: Details of the procedure explained to the patient. The patient taken procedure room placed in the sitting position. The over the right knee was cleaned using chlorhexidine as a cleansing solution. Using a 22-gauge inch and half needle the right knee joint was accessed from the anterior lateral position. After negative aspiration 4 cc of 1% lidocaine +4 cc of 0.25% Marcaine and 40 mg of Depo-Medrol was injected. Patient tolerated procedure without difficulty. There are no complications. Details of procedure explained to the patient. Patient was taken the procedure room placed in the sitting position. The area over the left knee was cleaned using chlorhexidine as a cleansing solution. Using a 25-gauge inch and half needle the left infrapatellar nerve was accessed with ease. After negative aspiration 5 cc of 1% lidocaine +5 cc of 0.25% Marcaine +40 mg of Depo-Medrol was injected. Patient tolerated procedure without difficulty. Dental complications. Plan and Disposition:: Patient was discharged without incident.
[2024-07-06 10:32] VITALS: BP 132/69; PULSE 60; RESP 16; O2SAT 93
== END 2024-07-06 10:32 | disposition home or self-care (01) ==
PROVIDERS: PCP Family Medicine; Visit Provider Nurse Anesthetist, Certified Registered
DX: M17.11 Unilateral primary osteoarthritis, right knee (principal); Z96.652 Presence of left artificial knee joint; M25.561 Pain in right knee; M25.562 Pain in left knee; G89.29 Other chronic pain
CPT/HCPCS: 20610; 64450; J1010

== ENCOUNTER 2024-07-20 10:30 | Outpatient (POV) | payer MEDICARE, SELFPAY ==
[2024-07-20 11:00] VITALS: BP 166/85; PULSE 62; RESP 18; TEMP 36.8; O2SAT 99; BMI 39.6
--- NOTE | 2024-07-20 11:08 | EXP.PAIN.SOA ---
[facility] Disclaimer: The information contained in this section may have been updated after the patient was seen, as this information can be updated by other users. Medical History Abnormal stress test Abnormal electrocardiography Dyspnea Surgical History Hx of cholecystectomy H/O spinal fusion H/O shoulder surgery H/O knee surgery H/O: hysterectomy Family History Other No significant family history Social History Smoking Status: Never smoker second hand exposure: No alcohol intake: never substance use type: denies use current occupational status: other Travel in the last 8 weeks: None household members: spouse housing: house current occupational exposures/hazards: No caffeine: Yes PM Subjective & Objective Subjective Subjective:: Patient is a pleasant 63-year-old female who presents today for follow-up of right intra-articular knee injection and left infrapatellar nerve block on 07/06/2024. Today she rates her pain a 5 out of 10. She denies any new trauma or injury. She does state that she has noticed significant improvements stating about 50% on the right and felt like the left did overall just as well but maybe a little bit under inciting around 45%. She does state that she has noticed a significant difference on her range of motion on the left side. She states it did take a little while to get used to the change of sensation however she feels much more functional. Patient is currently managed with Norco10 mg 4 times a day from our office and pregabalin 75 mg from an outside provider. She denies any side effects from this medication. Her Tavo has been reviewed and is appropriate. Review of Systems: General: No recent weight changes, no fever, no sleep disturbances Respiratory: No cough, no shortness of air, no recurring pulmonary infections Cardiovascular/peripheral vascular: No chest pain, no palpitations, no edema, no shortness of breath Gastrointestinal: No new onset incontinence, normal bowel movements reported Genitourinary: No new onset incontinence Musculoskeletal: Chronic back pain Psychiatric: [Normal mood/affect] Neurological: [Denies weakness in extremities], [denies balance issues] Pain at rest (0-10 scale): 5 Objective Objective:: Physical Exam: General: Alert and oriented x3, no acute distress, pleasant and cooperative Lungs: Respirations even and unlabored, symmetrical chest expansion Eyes: PERRL Musculoskeletal: Flexion and extension of lumbar [spine] somewhat guarded secondary to pain, [antalgic gait noted] Neurological: Speech clear, no gross sensory deficit Has patient had previous pain injection?: Yes Percent improvement in pain since last injection: 50% Conservative treatment options previously tried: Home exercise plan Length of treatment: Longer than 12 weeks Meds Home Medications and Allergies Home Medications ?Medication ?Instructions ?Recorded ?Confirmed ?Type topiramate 50 mg tablet 100 mg PO BID 08/20/17 07/20/24 History ferrous sulfate 325 mg (65 mg 325 mg PO BID 05/06/18 07/20/24 History iron) tablet pramipexole 1 mg tablet 1 mg PO TID 05/06/18 07/20/24 History pantoprazole 40 mg tablet,delayed 40 mg PO DAILY 05/28/20 07/20/24 History release potassium chloride 10 mEq 10 meq PO BID 05/17/21 07/20/24 History capsule,extended release rivaroxaban 20 mg tablet 20 mg PO DAILY 10/01/21 07/20/24 History nitroglycerin 0.4 mg sublingual 0.4 mg sublingual Q5-15M PRN chest 04/29/23 07/20/24 Rx tablet pain #30 tabs cyanocobalamin (vitamin B-12) 500 500 mcg PO WEEKLY 06/11/23 07/20/24 History mcg tablet alendronate 70 mg tablet 70 mg PO WEEKLY 12/30/23 07/20/24 History bumetanide 1 mg tablet 1 mg PO BID 12/30/23 07/20/24 History metoprolol succinate 25 mg 25 mg PO DAILY 30 days #30 tabs 06/02/24 07/20/24 Rx tablet,extended release 24 hr venlafaxine 150 mg tablet,extended 150 mg PO DAILY 30 days #0 tabs 06/02/24 07/20/24 Rx release 24 hr levothyroxine 150 mcg capsule 150 mcg PO DAILY #30 caps 06/14/24 07/20/24 Rx benzonatate 100 mg capsule 100 mg PO TIDP PRN Cough #30 caps 07/01/24 07/20/24 Rx cefdinir 300 mg capsule 300 mg PO BID #20 caps 07/01/24 07/20/24 Rx methylprednisolone 4 mg tablets in 4 mg PO DIRECTED 6 days #21 tabs 07/01/24 07/20/24 Rx a dose pack hydrocodone 10 mg-acetaminophen 1 tab PO QIDP PRN Pain (Scale 07/06/24 07/20/24 Rx 325 mg tablet Score 4-6) #120 tabs New Prescriptions to Start Prescriptions: Allergies Allergy/AdvReac Type Severity Reaction Status Date / Time gabapentin Allergy Verified 06/08/24 09:45 hyaluronic acid (From AdvReac Severe Verified 06/08/24 09:45 Supartz) Assessment and Plan *Assessment and plan (1) Lumbar radiculopathy: Status: Chronic Category: Medical Code(s): M54.16 - Radiculopathy, lumbar region (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 Qualifiers: Spinal osteoarthritis complication: with radiculopathy Qualified Code(s): M47.26 - Other spondylosis with radiculopathy, lumbar region Category: Medical Code(s): M47.816 - Spondylosis without myelopathy or radiculopathy, lumbar region (3) Spinal stenosis of lumbar region: Status: Chronic Category: Medical Code(s): M48.061 - Spinal stenosis, lumbar region without neurogenic claudication (4) Bilateral knee pain: Status: Acute Category: Medical Code(s): M25.561 - Pain in right knee; M25.562 - Pain in left knee Plan Patient has had significant improvement following her knee injections and does not require any additional injection therapy at this time. Patient will return to clinic in 3 weeks for medication refill. Patient did have questions concerning medical marijuana due to the extent of her back symptoms and the fact that she is too high risk for additional back surgery. I did disability counselor her that at this time we are not prescribing this however if she does proceed forward with it from an outside provider the expectation is just to have clear communication. Patient was counseled that generally we would plan to decrease her oral opioids if she chose to add the medical marijuana to her medication regimen. Patient acknowledges understanding and agrees with this plan of care. We will follow-up with this at future appointments. Patient has been instructed to contact the clinic with any concerns before the next appointment. Dr. Barnett has reviewed this note and agrees with this plan of care. This note was dictated using voice recognition software and make contain errors or omissions. All injections are used with Lidocaine, Bupivacaine and Depo Medrol. Occasionally urine drug screen is needed to verify patient's compliance with our office pain contract. This is ordered based off specific treatments related to chronic pain with the potential to abuse certain medications.
== END 2024-07-20 23:59 | disposition home or self-care (01) ==
LOC: SC.PAIN 10:31
PROVIDERS: PCP Family Medicine; Visit Provider Nurse Practitioner Family
DX: M47.26 Other spondylosis with radiculopathy, lumbar region (principal); M48.061 Spinal stenosis, lumbar region without neurogenic claudication; M25.561 Pain in right knee; M25.562 Pain in left knee; Z79.899 Other long term (current) drug therapy
CPT/HCPCS: 99212; G0463

== ENCOUNTER 2024-08-11 14:12 | Outpatient (POV) | payer MEDICARE, SELFPAY ==
--- NOTE | 2024-08-11 14:22 | A.OFFVIS_ITS ---
[facility] Disclaimer: The information contained in this section may have been updated after the patient was seen, as this information can be updated by other users. Medical History Abnormal stress test Abnormal electrocardiography Dyspnea Surgical History Hx of cholecystectomy H/O spinal fusion H/O shoulder surgery H/O knee surgery H/O: hysterectomy Family History Other No significant family history Social History Smoking Status: Never smoker second hand exposure: No alcohol intake: never substance use type: denies use current occupational status: other Travel in the last 8 weeks: None household members: spouse housing: house current occupational exposures/hazards: No caffeine: Yes PM Subjective & Objective Subjective Subjective:: Patient is a pleasant 63-year-old female who presents today for medication refill and follow-up. Today she rates her pain a 9 out of 10. She denies any new trauma or injury. She does state that her pain just seems to continually progress. She states that the last nerve block that did so wonderful has already worn off and feels like she never even had it. Patient does also state that she just feels like her scoliosis continues to progress and that she is experiencing a lot more back spasms. Patient does state that she is scheduled to see a cannabis doctor this coming week on Friday in [place]. Patient is currently managed with [place] 10 mg 4 times a day from our office and pregabalin for her PCP. She denies any side effects. Her Tavo has been reviewed and is appropriate. Review of Systems: General: No recent weight changes, no fever, no sleep disturbances Respiratory: No cough, no shortness of air, no recurring pulmonary infections Cardiovascular/peripheral vascular: No chest pain, no palpitations, no edema, no shortness of breath Gastrointestinal: No new onset incontinence, normal bowel movements reported Genitourinary: No new onset incontinence Musculoskeletal: Low back pain Psychiatric: [Normal mood/affect] Neurological: [Denies weakness in extremities], [denies balance issues] Pain at rest (0-10 scale): 9 Objective Objective:: Physical Exam: General: Alert and oriented x3, no acute distress, pleasant and cooperative Lungs: Respirations even and unlabored, symmetrical chest expansion Eyes: PERRL Musculoskeletal: Flexion and extension of lumbar [spine] somewhat guarded secondary to pain, [antalgic gait noted] Neurological: Speech clear, no gross sensory deficit Has patient had previous pain injection?: No Conservative treatment options previously tried: Home exercise plan Length of treatment: Longer than 12 weeks and Prescription medications Length of treatment: Longer than 12 weeks Meds Home Medications and Allergies Home Medications ?Medication ?Instructions ?Recorded ?Confirmed ?Type topiramate 50 mg tablet 100 mg PO BID 08/20/17 07/20/24 History ferrous sulfate 325 mg (65 mg 325 mg PO BID 05/06/18 07/20/24 History iron) tablet pramipexole 1 mg tablet 1 mg PO TID 05/06/18 07/20/24 History pantoprazole 40 mg tablet,delayed 40 mg PO DAILY 05/28/20 07/20/24 History release potassium chloride 10 mEq 10 meq PO BID 05/17/21 07/20/24 History capsule,extended release rivaroxaban 20 mg tablet 20 mg PO DAILY 10/01/21 07/20/24 History nitroglycerin 0.4 mg sublingual 0.4 mg sublingual Q5-15M PRN chest 04/29/23 07/20/24 Rx tablet pain #30 tabs cyanocobalamin (vitamin B-12) 500 500 mcg PO WEEKLY 06/11/23 07/20/24 History mcg tablet alendronate 70 mg tablet 70 mg PO WEEKLY 12/30/23 07/20/24 History bumetanide 1 mg tablet 1 mg PO BID 12/30/23 07/20/24 History metoprolol succinate 25 mg 25 mg PO DAILY 30 days #30 tabs 06/02/24 07/20/24 Rx tablet,extended release 24 hr venlafaxine 150 mg tablet,extended 150 mg PO DAILY 30 days #0 tabs 06/02/24 07/20/24 Rx release 24 hr levothyroxine 150 mcg capsule 150 mcg PO DAILY #30 caps 06/14/24 07/20/24 Rx benzonatate 100 mg capsule 100 mg PO TIDP PRN Cough #30 caps 07/01/24 07/20/24 Rx cefdinir 300 mg capsule 300 mg PO BID #20 caps 07/01/24 07/20/24 Rx methylprednisolone 4 mg tablets in 4 mg PO DIRECTED 6 days #21 tabs 07/01/24 07/20/24 Rx a dose pack hydrocodone 10 mg-acetaminophen 1 tab PO QIDP PRN Pain (Scale 07/06/24 07/20/24 Rx 325 mg tablet Score 4-6) #120 tabs New Prescriptions to Start Prescriptions: Allergies Allergy/AdvReac Type Severity Reaction Status Date / Time gabapentin Allergy Verified 06/08/24 09:45 hyaluronic acid (From AdvReac Severe Verified 06/08/24 09:45 Supartz) Assessment and Plan *Assessment and plan (1) Lumbar radiculopathy: Status: Chronic Category: Medical Code(s): M54.16 - Radiculopathy, lumbar region (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 Qualifiers: Spinal osteoarthritis complication: with radiculopathy Qualified Code(s): M47.26 - Other spondylosis with radiculopathy, lumbar region Category: Medical Code(s): M47.816 - Spondylosis without myelopathy or radiculopathy, lumbar region Plan I will refill the patient's [place] and provide a 1 month supply of this medication. I will also send in a 2-week dose of baclofen 10 mg 3 times daily for her worsening back spasms. Patient was counseled that if she ends up trying the medical marijuana and it does help that we can talk in future about decreasing her oral pain meds. I did also discuss with the patient that I really do believe in future if the progression continues with her scoliosis and chronic neck and back pain that she may very well be a candidate for a intrathecal pain pump trial. Educational handouts and risk and benefits were discussed during today's visit. We will follow-up with this at future visits. Patient will return to clinic in 1 month for reevaluation of symptoms and plan of care. Risks and benefits of the medication have been explained in detail to the patient. The patient does understand the risk of dependence on the medication when given over a prolonged period. Patient has been advised of risks of oversedation with the prescribed medication. Narcan has been offered to the paitent in the event of oversedation. Patient has been advised that a family member should also be educated regarding administration of Narcan. The patient has been advised to consult with his/her primary care provider and pharmacist regarding drug-drug interaction of medications currently prescribed. Patient has been prescribed a controlled substance after being counseled on the medication, medication safety, and possible side effects. Opioid contract was reviewed and signed by the patient, and that they have agreed to all of the terms set forth by our compliance program. A UDS is needed to verify patient's compliance with our office pain contract. This is ordered based off specific treatments related to chronic pain with the potential to abuse certain medications. Patient has been instructed to contact the clinic with any concerns before the next appointment. Dr. Barnett has reviewed this note and agrees with this plan of care. This note was dictated using voice recognition software and make contain errors or omissions.
[2024-08-11 14:42] VITALS: BP 155/71; PULSE 64; RESP 14; O2SAT 100; BMI 39.6
== END 2024-08-11 23:59 | disposition home or self-care (01) ==
PROVIDERS: PCP Family Medicine; Visit Provider Nurse Practitioner Family
DX: M47.26 Other spondylosis with radiculopathy, lumbar region (principal)
CPT/HCPCS: 99212; G0463

== ENCOUNTER 2024-09-08 13:33 | Outpatient (POV) | payer MEDICARE, SELFPAY ==
--- NOTE | 2024-09-08 13:44 | A.OFFVIS_ITS ---
[facility] Disclaimer: The information contained in this section may have been updated after the patient was seen, as this information can be updated by other users. Medical History Abnormal stress test Abnormal electrocardiography Dyspnea Surgical History Hx of cholecystectomy H/O spinal fusion H/O shoulder surgery H/O knee surgery H/O: hysterectomy Family History Other No significant family history Social History Smoking Status: Never smoker second hand exposure: No alcohol intake: never substance use type: denies use current occupational status: other Travel in the last 8 weeks: None household members: spouse housing: house current occupational exposures/hazards: No caffeine: Yes PM Subjective & Objective Subjective Subjective:: Patient is a pleasant 63-year-old female who presents today for monthly medication refill. Today she rates her pain a 10 out of 10. She denies any new trauma or injury. She does state that she is just constantly always having pain and that about 20 minutes ago even her clothing just seem to flareup her pain all of a sudden. At her last visit we did add baclofen onto her medication regiment 10 mg 3 times a day. She does state that this did help and is requesting refills. Patient is currently managed with [place] 10 mg 4 times a day from our office and pregabalin for her PCP. She denies any side effects. Patient from our last visit did go see the cannabis doctor and did get a medical marijuana card. She states that she only got the marijuana officially on Friday and has not noticed to what extent it is helping as of yet. Her Tavo has been reviewed and is appropriate. Review of Systems: General: No recent weight changes, no fever, no sleep disturbances Respiratory: No cough, no shortness of air, no recurring pulmonary infections Cardiovascular/peripheral vascular: No chest pain, no palpitations, no edema, no shortness of breath Gastrointestinal: No new onset incontinence, normal bowel movements reported Genitourinary: No new onset incontinence Musculoskeletal: Low back pain Psychiatric: [Normal mood/affect] Neurological: [Denies weakness in extremities], [denies balance issues] Pain at rest (0-10 scale): 10 Objective Objective:: Physical Exam: General: Alert and oriented x3, no acute distress, pleasant and cooperative Lungs: Respirations even and unlabored, symmetrical chest expansion Eyes: PERRL Musculoskeletal: Flexion and extension of lumbar [spine] somewhat guarded secondary to pain, [antalgic gait noted] Neurological: Speech clear, no gross sensory deficit Has patient had previous pain injection?: No Conservative treatment options previously tried: Home exercise plan Length of treatment: Longer than 12 weeks Meds Home Medications and Allergies Home Medications ?Medication ?Instructions ?Recorded ?Confirmed ?Type topiramate 50 mg tablet 100 mg PO BID 08/20/17 09/08/24 History ferrous sulfate 325 mg (65 mg 325 mg PO BID 05/06/18 09/08/24 History iron) tablet pramipexole 1 mg tablet 1 mg PO TID 05/06/18 09/08/24 History pantoprazole 40 mg tablet,delayed 40 mg PO DAILY 05/28/20 09/08/24 History release potassium chloride 10 mEq 10 meq PO BID 05/17/21 09/08/24 History capsule,extended release rivaroxaban 20 mg tablet 20 mg PO DAILY 10/01/21 09/08/24 History nitroglycerin 0.4 mg sublingual 0.4 mg sublingual Q5-15M PRN chest 04/29/23 09/08/24 Rx tablet pain #30 tabs cyanocobalamin (vitamin B-12) 500 500 mcg PO WEEKLY 06/11/23 09/08/24 History mcg tablet alendronate 70 mg tablet 70 mg PO WEEKLY 12/30/23 09/08/24 History bumetanide 1 mg tablet 1 mg PO BID 12/30/23 09/08/24 History metoprolol succinate 25 mg 25 mg PO DAILY 30 days #30 tabs 06/02/24 09/08/24 Rx tablet,extended release 24 hr venlafaxine 150 mg tablet,extended 150 mg PO DAILY 30 days #0 tabs 06/02/24 09/08/24 Rx release 24 hr levothyroxine 150 mcg capsule 150 mcg PO DAILY #30 caps 06/14/24 09/08/24 Rx benzonatate 100 mg capsule 100 mg PO TIDP PRN Cough #30 caps 07/01/24 09/08/24 Rx cefdinir 300 mg capsule 300 mg PO BID #20 caps 07/01/24 09/08/24 Rx methylprednisolone 4 mg tablets in 4 mg PO DIRECTED 6 days #21 tabs 07/01/24 09/08/24 Rx a dose pack baclofen 10 mg tablet 10 mg PO TID #42 tabs 08/11/24 09/08/24 Rx hydrocodone 10 mg-acetaminophen 1 tab PO QIDP PRN Pain (Scale 08/11/24 09/08/24 Rx 325 mg tablet Score 4-6) #120 tabs New Prescriptions to Start Prescriptions: Allergies Allergy/AdvReac Type Severity Reaction Status Date / Time gabapentin Allergy Verified 06/08/24 09:45 hyaluronic acid (From AdvReac Severe Verified 06/08/24 09:45 Supartz) Assessment and Plan *Assessment and plan (1) Degenerative joint disease (DJD) of lumbar spine: Status: Chronic Qualifiers: Spinal osteoarthritis complication: with radiculopathy Qualified Code(s): M47.26 - Other spondylosis with radiculopathy, lumbar region Category: Medical Code(s): M47.816 - Spondylosis without myelopathy or radiculopathy, lumbar region (2) Lumbar radiculopathy: Status: Chronic Category: Medical Code(s): M54.16 - Radiculopathy, lumbar region (3) Spinal stenosis of lumbar region: Status: Chronic Category: Medical Code(s): M48.061 - Spinal stenosis, lumbar region without neurogenic claudication Plan We will refill her [place] pain medication and baclofen and provide a 1 month supply of this medication. I did discuss at length with the patient that I will see how she progresses over the next month and if she does continue to use the medical marijuana we will plan on making some adjustments to her current medication regimen. I did recommend for the patient to use a journal to keep track of how much improvement she does or does not get with adding this addition onto her daily regimen. Patient acknowledges understanding and agrees with plan of care. Patient will return to clinic in 1 month. Risks and benefits of the medication have been explained in detail to the patient. The patient does understand the risk of dependence on the medication when given over a prolonged period. Patient has been advised of risks of oversedation with the prescribed medication. Narcan has been offered to the paitent in the event of o versedation. Patient has been advised that a family member should also be educated regarding administration of Narcan. The patient has been advised to consult with his/her primary care provider and pharmacist regarding drug-drug interaction of medications currently prescribed. Patient has been prescribed a controlled substance after being counseled on the medication, medication safety, and possible side effects. Opioid contract was reviewed and signed by the patient, and that they have agreed to all of the terms set forth by our compliance program. A UDS is needed to verify patient's compliance with our office pain contract. This is ordered based off specific treatments related to chronic pain with the potential to abuse certain medications. Patient has been instructed to contact the clinic with any concerns before the next appointment. Dr. Barnett has reviewed this note and agrees with this plan of care. This note was dictated using voice recognition software and make contain errors or omissions.
[2024-09-08 13:48] VITALS: BP 151/78; BP 153/75; PULSE 55; RESP 14; O2SAT 98; BMI 39.4
== END 2024-09-08 23:59 | disposition home or self-care (01) ==
PROVIDERS: PCP Family Medicine; Visit Provider Nurse Practitioner Family
DX: M47.26 Other spondylosis with radiculopathy, lumbar region (principal); M48.061 Spinal stenosis, lumbar region without neurogenic claudication
CPT/HCPCS: 99212; G0463

== ENCOUNTER 2024-09-24 19:24 | Emergency (ER) | payer MEDICARE, SELFPAY ==
[2024-09-24 19:35] VITALS: BP 152/69; PULSE 84; RESP 24; TEMP 37; O2SAT 97; BMI 40.1
--- NOTE | 2024-09-24 19:41 | ED_ITS ---
<Statement entered by Austin Kennedy MD - 09/24/24 23:51> I was consulted by the ROSARIO, and we discussed the complexity of the problems being addressed. I approved the treatment and management plan for this patient's care in the emergency department, thus performing a substantive portion of the medical decision making. Austin Kennedy MD, DANAY, FACEP Discharge Plan Disposition Chief Complaint: Back Pain/Injury Prescriptions Prescriptions: No Action potassium chloride 10 mEq capsule, extended release 10 meq PO BID cyanocobalamin (vitamin B-12) 500 mcg tablet 500 mcg PO WEEKLY Patient Comments: TAKE ONE TABLET BY MOUTH EVERY WEEK nitroglycerin 0.4 mg tablet, sublingual 0.4 mg sublingual Q5-15M PRN (Reason: chest pain) Qty: 30 1RF Rx Instructions: do not exceed 3 doses per episode alendronate 70 mg tablet 70 mg PO WEEKLY bumetanide 1 mg tablet 1 mg PO BID rivaroxaban 20 MG tablet 20 mg PO DAILY Rx Instructions: must administer with evening meal metoprolol succinate 25 MG tablet extended release 24 hr 25 mg PO DAILY 30 Days Qty: 30 0RF venlafaxine 150 mg tablet extended release 24hr 150 mg PO DAILY 30 Days Qty: 0 0RF levothyroxine 150 mcg capsule 150 mcg PO DAILY Qty: 30 0RF hydrocodone-acetaminophen 10-325 mg tablet 1 tab PO QIDP PRN (Reason: Pain (Scale Score 4-6)) Qty: 120 0RF baclofen 10 mg tablet 10 mg PO TID Qty: 90 0RF topiramate 50 tablet 100 mg PO BID Patient Comments: ferrous sulfate 325 MG tablet 325 mg PO BID pramipexole 1 tablet 1 mg PO TID pantoprazole 40 MG tablet,delayed release (DR/EC) 40 mg PO DAILY benzonatate 100 mg capsule 100 mg PO TIDP PRN (Reason: Cough) Qty: 30 0RF methylprednisolone 4 mg Tablets,Dose Pack 4 mg PO DIRECTED 6 Days Qty: 21 0RF Rx Instructions: Take 1 pack as directed for 6 days cefdinir 300 mg capsule 300 mg PO BID Qty: 20 0RF Referrals Follow up/Referrals: Ulises Judd MD [Primary Care Provider] - See instructions Instructions Patient Instructions: DI for Low Back Pain Print Language Print Language: Latvian Discharge ED Provider: Austin Kennedy General Adult HPI General Chief complaint: Back Pain/Injury Stated complaint: Lower back pain into right side,nausea Time Seen by Provider: 09/24/24 19:41 Mode of Arrival: Wheelchair Source of Information: Patient Description of Symptoms (Recalled from ER Triage Doc. by RN): pt to ED with c/o right lower back pain, worsening today. Pt reports foul urine odor 3 days ago, and dark urine. History of Present Illness HPI narrative: Patient presents for evaluation of right flank pain. Patient states she has had 2 weeks of increasing right flank pain. It initially began very small but has now become persistent and pervasive. Patient reports he noted a foul odor to her urine starting 3 days ago. She denies any fever chills hemoptysis hematochezia melena nausea vomiting diarrhea. There is no position of comfort there is no aggravating factors but the pain radiates towards her right groin. She denies any trauma or fall. She does have chronic pain due to scoliosis and degenerative joint disease of the spine and is chronically on hydrocodone. Related Data Home Medications ?Medication ?Instructions ?Recorded ?Confirmed topiramate 50 mg tablet 100 mg PO BID 08/20/17 09/08/24 ferrous sulfate 325 mg (65 mg 325 mg PO BID 05/06/18 09/08/24 iron) tablet pramipexole 1 mg tablet 1 mg PO TID 05/06/18 09/08/24 pantoprazole 40 mg tablet,delayed 40 mg PO DAILY 05/28/20 09/08/24 release potassium chloride 10 mEq 10 meq PO BID 05/17/21 09/08/24 capsule,extended release rivaroxaban 20 mg tablet 20 mg PO DAILY 10/01/21 09/08/24 cyanocobalamin (vitamin B-12) 500 500 mcg PO WEEKLY 06/11/23 09/08/24 mcg tablet alendronate 70 mg tablet 70 mg PO WEEKLY 12/30/23 09/08/24 bumetanide 1 mg tablet 1 mg PO BID 12/30/23 09/08/24 Previous Rx's ?Medication ?Instructions ?Recorded nitroglycerin 0.4 mg sublingual 0.4 mg sublingual Q5-15M PRN chest 04/29/23 tablet pain #30 tabs metoprolol succinate 25 mg 25 mg PO DAILY 30 days #30 tabs 06/02/24 tablet,extended release 24 hr venlafaxine 150 mg tablet,extended 150 mg PO DAILY 30 days #0 tabs 06/02/24 release 24 hr levothyroxine 150 mcg capsule 150 mcg PO DAILY #30 caps 06/14/24 benzonatate 100 mg capsule 100 mg PO TIDP PRN Cough #30 caps 07/01/24 cefdinir 300 mg capsule 300 mg PO BID #20 caps 07/01/24 methylprednisolone 4 mg tablets in 4 mg PO DIRECTED 6 days #21 tabs 07/01/24 a dose pack baclofen 10 mg tablet 10 mg PO TID #90 tabs 09/08/24 hydrocodone 10 mg-acetaminophen 1 tab PO QIDP PRN Pain (Scale 09/08/24 325 mg tablet Score 4-6) #120 tabs Allergies Allergy/AdvReac Type Severity Reaction Status Date / Time gabapentin Allergy Verified 06/08/24 09:45 hyaluronic acid (From AdvReac Severe Verified 06/08/24 09:45 Supartz) [facility] Disclaimer: The information contained in this section may have been updated after the patient was seen, as this information can be updated by other users. Medical History Abnormal stress test Abnormal electrocardiography Dyspnea Surgical History Hx of cholecystectomy H/O spinal fusion H/O shoulder surgery H/O knee surgery H/O: hysterectomy Family History Other No significant family history Social History Smoking Status: Light tobacco smoker second hand exposure: No alcohol intake: never substance use type: denies use current occupational status: other Travel in the last 8 weeks: None household members: spouse housing: house current occupational exposures/hazards: No caffeine: Yes Have you lived/traveled outside [place] in past 30 days?: No Contact w/someone who lives/traveled outside US past 30 days?: No Exposure to someone with infectious disease in past 14 days?: No Do you have a fever (greater than 100.4 F or 38 C)?: No Have you tested positive for COVID-19: No Exposed to someone with COVID-19 in past 14 days?: No Do you have a sore throat?: No Do you have a cough?: No Do you have any weakness?: No Do you have any diarrhea?: No Are you experiencing any unusual bleeding?: No Do you have any muscle aches/pain?: No Do you have any abdominal pain?: No Are you experiencing loss of taste or smell?: No Other Medical History Have you received the Flu Vaccine for this season: No Have you received the Pneumonia Vaccine: No ROS Obtained: Yes Systems reviewed as appropriate & no additional complaints except as documented Physical Exam General General appearance: alert and in no apparent distress Respiratory Respiratory exam: Present normal lung sounds bilaterally Cardiovascular Cardiovascular exam: Present regular rate Neurological Exam Neurological exam: Present alert and oriented X3 Medical Decision Making Medical Records Medical records reviewed: Yes I reviewed the patient's medical records. Screening: Per USPSTF and CDC recommendations, given the prevalence of disease in our region, it is our hospital?s policy to screen for HIV and viral Hepatitis for all patients aged 18 and over and those with ongoing risk factors. Tavo Inquiry Pt receiving controlled substance: No Vital Signs: 09/24/24 19:35 09/24/24 20:08 09/24/24 21:00 Temperature 98.6 F Temperature Source Oral Pulse Rate 77 71 Pulse Rate [Left Radial] 84 Respiratory Rate 24 Blood Pressure 166/74 H 117/57 L Blood Pressure [Right Arm] 152/69 H Blood Pressure Mean [Right Arm] 96 Blood Pressure Source [Right Arm] Automatic Cuff Blood Pressure Position [Right Arm] Sitting 02 Sat by Pulse Oximetry 97 98 96 Oxygen Delivery Method Room Air Room Air Room Air 09/24/24 21:30 Temperature Temperature Source Pulse Rate 71 Pulse Rate [Left Radial] Respiratory Rate Blood Pressure 110/54 L Blood Pressure [Right Arm] Blood Pressure Mean [Right Arm] Blood Pressure Source [Right Arm] Blood Pressure Position [Right Arm] 02 Sat by Pulse Oximetry 94 L Oxygen Delivery Method Room Air Lab Data Lab results reviewed: Yes I reviewed the patient's lab results. Lab Results 09/24/24 19:30: WBC 7.0, RBC 4.16 L, Hgb 13.3, Hct 40.2, MCV 96.6, MCH 32.0 H, MCHC 33.1, RDW 12.9, Plt Count 191, MPV 10.5 H, Neut % (Auto) 80.9 H, Lymph % (Auto) 9.5 L, Gates % (Auto) 7.7, Eos % (Auto) 1.4, Baso % (Auto) 0.4, Neut # (Auto) 5.7, Lymph # (Auto) 0.7, Gates # (Auto) 0.5, Eos # (Auto) 0.1, Baso # (Auto) 0.0, Sodium 140, Potassium 3.9, Chloride 105, Carbon Dioxide 25, Anion Gap 13.9, BUN 17, Creatinine 1.10 H, Estimated Creat Clear 85, Estimated GFR 50 L, Est GFR ( Amer) 61, Glucose 146 H, Calcium 9.6, Total Bilirubin 0.8, A ST 181 H, ALT 248 H, Alkaline Phosphatase 137 H, Total Protein 7.5 D, Albumin 4.7, Globulin 2.8, Albumin/Globulin Ratio 1.7, Lipase 84, Procalcitonin 0.372 09/24/24 19:30 09/24/24 19:30 Orders (Tests/Meds): ED MEDICATIONS Generic Name Dose Route Start Last Admin Trade Name Freq PRN Reason Stop Dose Admin Sodium Chloride 10 ml 09/24/24 20:38 09/24/24 20:42 Sodium Chloride 0.9% 10ml Syr (Rad Only) IV 10/24/24 20:37 10 ml NEEDED PRN Administration Maintain IV Site Discontinued Medications Generic Name Dose Route Start Last Admin Trade Name Freq PRN Reason Stop Dose Admin Acetaminophen 1,000 mg 09/24/24 19:44 09/24/24 20:03 Acetaminophen 500mg Tab PO 09/24/24 19:45 1,000 mg ONCE ONE Administration Iopamidol 75 ml 09/24/24 20:38 09/24/24 20:42 Iopamidol-370 (76%);100ml Bottle IV 09/24/24 20:39 75 ml ONCE ONE Administration Ketorolac Tromethamine 15 mg 09/24/24 19:44 09/24/24 20:03 Ketorolac 30mg/Ml Vial IV 09/24/24 19:45 15 mg ONCE ONE Administration Lidocaine 1 each 09/24/24 19:44 09/24/24 20:03 Lidocaine 5% Transdermal Patch TD 09/24/24 19:45 1 each ONCE ONE Administration Methocarbamol 500 mg 09/24/24 19:44 09/24/24 20:03 Methocarbamol 500mg Tablet PO 09/24/24 19:45 500 mg ONCE ONE Administration ORDERS Category Date Time Status CT abdomen pelvis w con Stat Cat Scan 09/24/24 19:45 Completed CBC w/Auto Diff [Complete Blood Count Auto Diff] Stat Lab 09/24/24 19:30 Completed CMP [Comprehensive Metabolic Panel] Stat Lab 09/24/24 19:30 Completed Lipase Stat Lab 09/24/24 19:30 Completed Procalcitonin Stat Lab 09/24/24 19:30 Completed UA [Urinalysis and Microscopic] Stat Lab 09/24/24 19:45 Ordered Medical Decision Narrative: In summary patient is a 63-year-old female who presents to the emergency department for evaluation of right flank pain. Patient is hemodynamically stable with a blood pressure 152/69 pulse 84 with normal sinus rhythm on bedside monitor breathing 24 times a minute satting at 97% on room air upon arrival, afebrile at 90.6. Physical exam is remarkable for a well-nourished well- developed obese, with a BMI of 40, 63-year-old female who is otherwise in no acute distress. Breath sounds clear and equal bilaterally to the bases without adventitious sounds. Abdomen is soft and diffusely mildly tender to palpation without rebound or guarding or rigidity. Bowel sounds normal active. Patient moves all 4 extremities is neurovascular intact distally. Straight leg raise causes pain in her right low back on the ipsilateral side none on the contralateral side patient is tender to palpation in the paraspinous musculature in the right flank but also has CVA tenderness to percussion. She has no midline bony tenderness or abnormality. There is no edema ecchymosis bony deformity.. Differential diagnosis includes radiculopathy versus urinary tract infection versus pyelonephritis versus kidney stone etc. Initial workup will be conducted with hematologic labs urinalysis CT scan abdomen pelvis. Initial interventions include Tylenol Toradol Lidoderm patch. Initial workup reviewed by me and her hematologic labs are significant for white count of 7 normal hemoglobin hematocrit absolute neutrophil count of 5.7. Creatinine is 1.1 GFR is 50 patient does have transaminitis with an AST of 81 and ALT of 248 and alk phos of 137 bilirubin procalcitonin is 0.372. Upon repeat evaluation patient reported complete resolution of her pain after initial intervention however we have yet to receive a urine specimen.. Given this I had a shared decision- making discussion with the patient and given her reported history of foul- smelling urine and her inability to provide a sample but also no red flags for pyelonephritis I offered the patient the option of trying to provide a urinary sample or going home with a prescription for Macrobid with strict and close follow-up with her PCP for continued new or symptoms and patient via patient directed decision making and discharge was agreeable to that plan. Thus patient be given a prescription for Macrobid with first dose given here as well as a prescription for Robaxin and a Lidoderm patch. Patient to follow-up with her PCP Friday for recheck sooner if needed or return to the ER as needed Critical Care Critical Care Time Critical Care Time: No
--- NOTE | 2024-09-24 19:45 | CT_ITS ---
PROCEDURE INFORMATION: Exam: CT Abdomen And Pelvis With Contrast Exam date and time: 09/24/2024 8:27 PM Age: 63 years old Clinical indication: Abdominal pain; Additional info: Right flank pain TECHNIQUE: Imaging protocol: Computed tomography of the abdomen and pelvis with contrast. Radiation optimization: All CT scans at this facility use at least one of these dose optimization techniques: automated exposure control; mA and/or kV adjustment per patient size (includes targeted exams where dose is matched to clinical indication); or iterative reconstruction. Contrast material: ISOVUE; Contrast volume: 75 ml; Contrast route: IV; COMPARISON: CT ABDOMEN PELVIS W CON 06/02/2024 12:19 PM FINDINGS: Lungs: Lung bases are clear. Liver: Fatty liver changes. Liver otherwise unremarkable. Gallbladder and biliary ducts: Status post cholecystectomy. No evident bile duct dilatation allowing for prior cholecystectomy. Pancreas: Normal. No ductal dilation. Spleen: Normal. No splenomegaly. Adrenal glands: Normal. No mass. Kidneys and ureters: Subcentimeter low-density lesion in the superomedial left kidney too small to characterize but likely a cyst. No follow-up advised. Stomach and bowel: Karla-en-Y gastric bypass changes. GI tract structures otherwise unremarkable with no evident wall thickening allowing for incomplete distention. Appendix: No evidence of appendicitis. Intraperitoneal space: Unremarkable. No free air. No significant fluid collection. Vasculature: Unremarkable. No abdominal aortic aneurysm. Lymph nodes: Unremarkable. No enlarged lymph nodes. Urinary bladder: Unremarkable as visualized. Reproductive: Hysterectomy. Bones/joints: Unremarkable. No acute fracture. Soft tissues: Unremarkable. IMPRESSION: No acute abnormalities of the abdomen and pelvis. Nonemergent findings as above. COMMENTS: Consistent with the [employer]'s Incidental Findings Committee white paper (J Am Trish Radiol 2018): Any incidental renal lesion less than 1 cm or classified as too small to characterize, or any incidental cystic renal lesion characterized as simple-appearing, is likely benign. No follow-up imaging is recommended for these lesions per consensus recommendations based on imaging criteria.
[2024-09-24 19:50] LABS: Basophils % 0.4 % (0.1-2.0); Eosinophils # 0.1 K/mm3 (0.0-0.4); Eosinophils % 1.4 % (0.1-12.0); Hematocrit 40.2 % (37.0-47.0); Hemoglobin 13.3 g/dL (12.2-16.2); Lymphocytes # 0.7 K/mm3 (0.7-4.5); Lymphocytes % 9.5 % (10-50); Mean Corpuscular HGB Conc 33.1 g/dL (31.8-35.4); Mean Corpuscular Volume 96.6 fl (81-99); Mean Platelet Volume 10.5 fl (7.4-10.4); Monocytes # 0.5 K/mm3 (0.1-1.0); Monocytes % 7.7 % (1.7-9.3); Neutrophils # 5.7 K/mm3 (1.8-7.8); Neutrophils % 80.9 % (37.0-80.0); Platelet Count 191 K/mm3 (142-424); Red Blood Count 4.16 M/mm3 (4.20-5.40); Red Cell Distribution Width 12.9 % (11.5-17.5)
[2024-09-24 19:52] LABS: Albumin Level 4.7 g/dl (3.5-5.0); Chloride 105 mmol/L (98-107); Potassium 3.9 mmoL/L (3.5-5.1); Sodium 140 mmol/L (136-145)
[2024-09-24 19:54] LABS: Blood Urea Nitrogen 17 mg/dl (7-17); Creatinine Clearance Estimated 85 mL/min (50-200); Estimated Glomerular Filt Rate 50 ml/min (>60); GFR (African American) 61 ML/MIN (>60)
[2024-09-24 19:55] LABS: Alanine Aminotransferase 248 U/L (12-78); Albumin/Globulin Ratio 1.7 (1.1-1.8); Alkaline Phosphatase 137 U/L (38-126); Anion Gap 13.9 mEq/L (5-15); Aspartate Amino Transferase 181 U/L (14-36); Bilirubin,Total 0.8 mg/dl (0.2-1.3); Calcium 9.6 mg/dl (8.4-10.2); Carbon Dioxide 25 mmol/L (22.0-30.0); Globulin 2.8 g/dL (1.3-3.2); Glucose 146 mg/dl (74-100); Lipase 84 U/L (23-300); Total Protein,Serum 7.5 g/dl (6.3-8.2)
[2024-09-24] MEDS: KETOROLAC 30MG/ML VIAL 15 MG IV (20:03)
[2024-09-24] MEDS: ACETAMINOPHEN 500MG TAB 1000 MG PO (20:03)
[2024-09-24] MEDS: METHOCARBAMOL 500MG TABLET 500 MG PO (20:03)
[2024-09-24] MEDS: LIDOCAINE 5% TRANSDERMAL PATCH 1 EACH TD (20:03)
[2024-09-24 20:08] VITALS: BP 166/74; PULSE 77; O2SAT 98
[2024-09-24 20:16] LABS: Procalcitonin 0.372 ng/mL (0.0-2.0)
[2024-09-24] MEDS: SODIUM CHLORIDE 0.9% 10ML SYR (RAD ONLY) 10 ML IV (20:42)
[2024-09-24] MEDS: IOPAMIDOL-370 (76%);100ML BOTTLE 75 ML IV (20:42)
--- NOTE | 2024-09-24 20:43 | PC.NURSE ---
back from Rad by stretcher at this time
[2024-09-24 21:00] VITALS: BP 117/57; PULSE 71; O2SAT 96
[2024-09-24 21:30] VITALS: BP 110/54; PULSE 71; O2SAT 94
[2024-09-24 22:22] LABS: Microscopic, Urine URINE MICROSCOPIC (MICROSCOPIC)
[2024-09-24 22:24] LABS: Appearance,Urine CLEAR (Clear); Bilirubin,Urine Negative (Negative); Blood, Urine Negative (Negative); Color,Urine YELLOW (Yellow); Glucose,Urine (UA) Negative (Negative); Ketones,Urine Negative (Negative); Leukocyte Esterase,Urine Negative (Negative); Nitrate,Urine POSITIVE (Negative); PH,Urine 5.5 (5.0-8.5); Protein,Urine Negative (Negative); Specific Gravity, Urine 1.015 (1.005-1.030); Urobilinogen,Urine 0.2 EU/dl (0.2)
[2024-09-24] MEDS: NITROFURANTOIN 100MG CAPSULE 100 MG PO (22:25)
[2024-09-24 22:33] VITALS: BP 99/54; PULSE 64; RESP 14; TEMP 36.6; O2SAT 95
[2024-09-24 22:40] LABS: Bacteria,Urine 2+ /lpf; Squamous Epithelial Cell,Urine Occasional #/hpf (0-5); WBC,Urine Occasional #/hpf (0-3)
--- NOTE | 2024-09-28 15:55 | PC.NURSE ---
URINE CULTURE DISCUSSED WITH DR HOLLIS, NO NEW ORDERS
== END 2024-09-24 22:34 | disposition home or self-care (01) ==
PROVIDERS: Physician Assistant; Emergency Provider Student in an Organized Health Care Education/Training Program; PCP Family Medicine
DX: M54.50 Low back pain, unspecified (principal)
CPT/HCPCS: 74177; 80053; 81001; 83690; 84145; 85025; 87086; 87088; 87186; 96374; 99284; J1885; Q9967

== ENCOUNTER 2024-10-07 14:27 | Outpatient (POV) | payer MEDICARE, SELFPAY ==
[2024-10-07 14:37] VITALS: BP 122/66; PULSE 65; RESP 14; O2SAT 99; BMI 40.1
--- NOTE | 2024-10-07 14:43 | A.OFFVIS_ITS ---
[facility] Disclaimer: The information contained in this section may have been updated after the patient was seen, as this information can be updated by other users. Medical History Abnormal stress test Abnormal electrocardiography Dyspnea Surgical History Hx of cholecystectomy H/O spinal fusion H/O shoulder surgery H/O knee surgery H/O: hysterectomy Family History Other No significant family history Social History Smoking Status: Light tobacco smoker second hand exposure: No alcohol intake: never substance use type: denies use current occupational status: other Travel in the last 8 weeks: None household members: spouse housing: house current occupational exposures/hazards: No caffeine: Yes PM Subjective & Objective Subjective Subjective:: Patient is a pleasant 63-year-old female who presents today for medication refill and follow-up. Today she does rate her pain an 8 out of 10. She denies any new trauma or injury. She does state that she is just having a spell currently and that feels like her pain continues to worsen on a daily basis. Patient does state that she has still been doing the medical marijuana however she has not bought any additional and does not do it on a regular basis. Patient states she is still trying to figure out if it does help or not. She does make mention that she feels like it does help her legs a little bit. Patient is currently managed [place] 10 mg 4 times a day and baclofen 10 mg 3 times a day from our office and pregabalin from an outside provider. She denies any side effects. Her Tavo has been reviewed. Review of Systems: General: No recent weight changes, no fever, no sleep disturbances Respiratory: No cough, no shortness of air, no recurring pulmonary infections Cardiovascular/peripheral vascular: No chest pain, no palpitations, no edema, no shortness of breath Gastrointestinal: No new onset incontinence, normal bowel movements reported Genitourinary: No new onset incontinence Musculoskeletal: low back pain Psychiatric: [Normal mood/affect] Neurological: [Denies weakness in extremities], [denies balance issues] Pain at rest (0-10 scale): 8 Objective Objective:: Physical Exam: General: Alert and oriented x3, no acute distress, pleasant and cooperative Lungs: Respirations even and unlabored, symmetrical chest expansion Eyes: PERRL Musculoskeletal: Flexion and extension of lumbar [spine] somewhat guarded secondary to pain, [antalgic gait noted] Neurological: Speech clear, no gross sensory deficit Has patient had previous pain injection?: No Conservative treatment options previously tried: Home exercise plan Length of treatment: Longer than 12 weeks Meds Home Medications and Allergies Home Medications ?Medication ?Instructions ?Recorded ?Confirmed ?Type topiramate 50 mg tablet 100 mg PO BID 08/20/17 10/07/24 History ferrous sulfate 325 mg (65 mg 325 mg PO BID 05/06/18 10/07/24 History iron) tablet pramipexole 1 mg tablet 1 mg PO TID 05/06/18 10/07/24 History pantoprazole 40 mg tablet,delayed 40 mg PO DAILY 05/28/20 10/07/24 History release potassium chloride 10 mEq 10 meq PO BID 05/17/21 10/07/24 History capsule,extended release rivaroxaban 20 mg tablet 20 mg PO DAILY 10/01/21 10/07/24 History nitroglycerin 0.4 mg sublingual 0.4 mg sublingual Q5-15M PRN chest 04/29/23 10/07/24 Rx tablet pain #30 tabs cyanocobalamin (vitamin B-12) 500 500 mcg PO WEEKLY 06/11/23 10/07/24 History mcg tablet alendronate 70 mg tablet 70 mg PO WEEKLY 12/30/23 10/07/24 History bumetanide 1 mg tablet 1 mg PO BID 12/30/23 10/07/24 History metoprolol succinate 25 mg 25 mg PO DAILY 30 days #30 tabs 06/02/24 10/07/24 Rx tablet,extended release 24 hr venlafaxine 150 mg tablet,extended 150 mg PO DAILY 30 days #0 tabs 06/02/24 10/07/24 Rx release 24 hr levothyroxine 150 mcg capsule 150 mcg PO DAILY #30 caps 06/14/24 10/07/24 Rx benzonatate 100 mg capsule 100 mg PO TIDP PRN Cough #30 caps 07/01/24 10/07/24 Rx cefdinir 300 mg capsule 300 mg PO BID #20 caps 07/01/24 10/07/24 Rx methylprednisolone 4 mg tablets in 4 mg PO DIRECTED 6 days #21 tabs 07/01/24 10/07/24 Rx a dose pack baclofen 10 mg tablet 10 mg PO TID #90 tabs 09/08/24 10/07/24 Rx hydrocodone 10 mg-acetaminophen 1 tab PO QIDP PRN Pain (Scale 09/08/24 10/07/24 Rx 325 mg tablet Score 4-6) #120 tabs lidocaine 5 % topical patch 1 patch topical DAILY #30 ea 09/24/24 10/07/24 Rx methocarbamol 750 mg tablet 750 mg PO Q6H PRN muscle spasm #20 09/24/24 10/07/24 Rx tabs nitrofurantoin 100 mg PO BID 5 days #10 caps 09/24/24 10/07/24 Rx monohydrate/macrocrystals 100 mg capsule New Prescriptions to Start Prescriptions: Allergies Allergy/AdvReac Type Severity Reaction Status Date / Time gabapentin Allergy Verified 06/08/24 09:45 hyaluronic acid (From AdvReac Severe Verified 06/08/24 09:45 Supartz) Assessment and Plan *Assessment and plan (1) Lumbar radiculopathy: Status: Chronic Category: Medical Code(s): M54.16 - Radiculopathy, lumbar region (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 Qualifiers: Spinal osteoarthritis complication: with radiculopathy Qualified Code(s): M47.26 - Other spondylosis with radiculopathy, lumbar region Category: Medical Code(s): M47.816 - Spondylosis without myelopathy or radiculopathy, lumbar region Plan Patient does not appear to have a recent drug screen. We will do this today. I will refill the patient's [place] and baclofen. Patient was counseled that officially next month if she is still doing the medical marijuana she will be changed to [place] 10 mg 3 times a day. Patient acknowledges understanding. Patient will return to clinic in 1 month. Patient did also state that she had felt like she has a lot of tightness and pain continued at her neck and low back. I did discuss with the patient that it may be beneficial to order evaluation and treatment by physical therapy. Patient is okay with proceeding forward with this option I will put the order in today and we will follow-up with her in future regarding her improvement. Risks and benefits of the medication have been explained in detail to the patient. The patient does understand the risk of dependence on the medication when given over a prolonged period. Patient has been advised of risks of oversedation with the prescribed medication. Narcan has been offered to the paitent in the event of oversedation. Patient has been advised that a family member should also be educated regarding administration of Narcan. The patient has been advised to consult with his/her primary care provider and pharmacist regarding drug-drug interaction of medications currently prescribed. Patient has been prescribed a controlled substance after being counseled on the medication, medication safety, and possible side effects. Opioid contract was reviewed and signed by the patient, and that they have agreed to all of the terms set forth by our compliance program. A UDS is needed to verify patient's compliance with our office pain contract. This is ordered based off specific treatments related to chronic pain with the potential to abuse certain medications. Patient has been instructed to contact the clinic with any concerns before the next appointment. Dr. Barnett has reviewed this note and agrees with this plan of care. This note was dictated using voice recognition software and make contain errors or omissions.
== END 2024-10-07 23:59 | disposition home or self-care (01) ==
PROVIDERS: PCP Family Medicine; Visit Provider Nurse Practitioner Family
DX: M47.26 Other spondylosis with radiculopathy, lumbar region (principal); M54.2 Cervicalgia; Z79.899 Other long term (current) drug therapy
CPT/HCPCS: 99212; G0463

== ENCOUNTER 2024-10-27 15:00 | Outpatient (RCR) | payer MEDICARE, SELFPAY ==
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
== END 2024-10-27 23:59 | disposition home or self-care (01) ==
LOC: PT 15:00
PROVIDERS: PCP Family Medicine; Visit Provider Nurse Practitioner Family
DX: M47.26 Other spondylosis with radiculopathy, lumbar region (principal); M54.2 Cervicalgia
CPT/HCPCS: 97014; 97110; 97140; 97163; 97530; G0283

== ENCOUNTER 2024-11-05 15:01 | Outpatient (CLI) | payer MEDICARE, SELFPAY ==
--- NOTE | 2024-11-05 | CT_ITS ---
FINAL REPORT TECHNIQUE: Axial images were obtained of the cervical spine by computed tomography. Coronal and sagittal reconstruction process performed. This study was performed with techniques to keep radiation doses as low as reasonably achievable (ALARA). Individualized dose reduction techniques using automated exposure control or adjustment of mA and/or kV according to the patient''s size were employed. CLINICAL HISTORY: PAIN, FUSION 2 YEARS AGO COMPARISON: Plain radiographs of the cervical spine 07/18/2022 FINDINGS: CT CERVICAL SPINE: The patient has undergone prior anterior fusion from C2-C4, with a corpectomy of C3 and an interbody bony graft. A partial corpectomy of the inferior portion of C2 may be present as well. The canal is widely patent. There has been posterior fusion from C2-T1. There is significant degenerative disc disease present at the C4-5 and C5-6 levels. No previous postoperative studies are available for comparison purposes. No prevertebral soft tissue swelling is identified. IMPRESSION: Extensive anterior and posterior fusion as described in the body of the report. No previous postoperative studies are available for comparison purposes. Degenerative disc disease is present at the C4-5 and C5-6 levels. No significant canal stenosis is identified. Reviewed, Interpreted and Dictated by Joe Marx MD Transcribed by Millicent White Authenticated and [facility]
== END 2024-11-05 23:59 | disposition home or self-care (01) ==
LOC: RAD 15:02
PROVIDERS: PCP Family Medicine; Visit Provider Neurological Surgery
DX: M50.321 Other cervical disc degeneration at C4-C5 level (principal); M50.322 Other cervical disc degeneration at C5-C6 level
CPT/HCPCS: 72125

== ENCOUNTER 2024-11-11 10:18 | Outpatient (POV) | payer MEDICARE, SELFPAY ==
[2024-11-11 10:35] VITALS: BP 111/69; PULSE 66; RESP 12; O2SAT 100; BMI 40.1
--- NOTE | 2024-11-11 11:13 | EXP.PAIN.SOA ---
[facility] Disclaimer: The information contained in this section may have been updated after the patient was seen, as this information can be updated by other users. Medical History Abnormal stress test Abnormal electrocardiography Dyspnea Surgical History Hx of cholecystectomy H/O spinal fusion H/O shoulder surgery H/O knee surgery H/O: hysterectomy Family History Other No significant family history Social History Smoking Status: Light tobacco smoker second hand exposure: No alcohol intake: never substance use type: denies use current occupational status: other Travel in the last 8 weeks?: None household members: spouse housing: house current occupational exposures/hazards: No caffeine: Yes PM Subjective & Objective Subjective Subjective:: Patient is a pleasant 63-year-old female who presents today for medication refill and follow-up. She rates her pain today an 8 out of 10. She denies any new falls or injuries. She does state from our last visit that she has started physical therapy however still has quite a bit of pain on a daily basis and that has not noticed any benefit at this time. Patient is seeing Dr. Naseem starks and states that she is having 2 additional MRIs later today for the possibility of a additional back surgery coming up. Patient is currently managed with [place] 10 mg 4 times a day, baclofen 10 mg 3 times a day from our office and pregabalin from an outside provider. At her last visit we did discuss that today's visit we would be dropping her Fairfield to 3 times a day because she is using medical marijuana as it helps some of her pains. Her Tavo has been reviewed and is appropriate. Review of Systems: General: No recent weight changes, no fever, no sleep disturbances Respiratory: No cough, no shortness of air, no recurring pulmonary infections Cardiovascular/peripheral vascular: No chest pain, no palpitations, no edema, no shortness of breath Gastrointestinal: No new onset incontinence, normal bowel movements reported Genitourinary: No new onset incontinence Musculoskeletal: Chronic back pain Psychiatric: [Normal mood/affect] Neurological: [Denies weakness in extremities], [denies balance issues] Pain at rest (0-10 scale): 8 Objective Objective:: Physical Exam: General: Alert and oriented x3, no acute distress, pleasant and cooperative Lungs: Respirations even and unlabored, symmetrical chest expansion Eyes: PERRL Musculoskeletal: Flexion and extension of cervical [spine] somewhat guarded secondary to pain, [antalgic gait noted] Neurological: Speech clear, no gross sensory deficit Has patient had previous pain injection?: No Conservative treatment options previously tried: Prescription medications Length of treatment: Longer than 12 weeks Meds Home Medications and Allergies Home Medications ?Medication ?Instructions ?Recorded ?Confirmed ?Type topiramate 50 mg tablet 100 mg PO BID 08/20/17 11/11/24 History ferrous sulfate 325 mg (65 mg 325 mg PO BID 05/06/18 11/11/24 History iron) tablet pramipexole 1 mg tablet 1 mg PO TID 05/06/18 11/11/24 History pantoprazole 40 mg tablet,delayed 40 mg PO DAILY 05/28/20 11/11/24 History release potassium chloride 10 mEq 10 meq PO BID 05/17/21 11/11/24 History capsule,extended release rivaroxaban 20 mg tablet 20 mg PO DAILY 10/01/21 11/11/24 History nitroglycerin 0.4 mg sublingual 0.4 mg sublingual Q5-15M PRN chest 04/29/23 11/11/24 Rx tablet pain #30 tabs cyanocobalamin (vitamin B-12) 500 500 mcg PO WEEKLY 06/11/23 11/11/24 History mcg tablet alendronate 70 mg tablet 70 mg PO WEEKLY 12/30/23 11/11/24 History bumetanide 1 mg tablet 1 mg PO BID 12/30/23 11/11/24 History metoprolol succinate 25 mg 25 mg PO DAILY 30 days #30 tabs 06/02/24 11/11/24 Rx tablet,extended release 24 hr venlafaxine 150 mg tablet,extended 150 mg PO DAILY 30 days #0 tabs 06/02/24 11/11/24 Rx release 24 hr levothyroxine 150 mcg capsule 150 mcg PO DAILY #30 caps 06/14/24 11/11/24 Rx benzonatate 100 mg capsule 100 mg PO TIDP PRN Cough #30 caps 07/01/24 11/11/24 Rx cefdinir 300 mg capsule 300 mg PO BID #20 caps 07/01/24 11/11/24 Rx methylprednisolone 4 mg tablets in 4 mg PO DIRECTED 6 days #21 tabs 07/01/24 11/11/24 Rx a dose pack lidocaine 5 % topical patch 1 patch topical DAILY #30 ea 09/24/24 11/11/24 Rx methocarbamol 750 mg tablet 750 mg PO Q6H PRN muscle spasm #20 09/24/24 11/11/24 Rx tabs nitrofurantoin 100 mg PO BID 5 days #10 caps 09/24/24 11/11/24 Rx monohydrate/macrocrystals 100 mg capsule baclofen 10 mg tablet 10 mg PO TID #90 tabs 10/07/24 11/11/24 Rx hydrocodone 10 mg-acetaminophen 1 tab PO QIDP PRN Pain (Scale 10/07/24 11/11/24 Rx 325 mg tablet Score 4-6) #120 tabs New Prescriptions to Start Prescriptions: Allergies Allergy/AdvReac Type Severity Reaction Status Date / Time gabapentin Allergy Verified 06/08/24 09:45 hyaluronic acid (From AdvReac Severe Verified 06/08/24 09:45 Supartz) Assessment and Plan *Assessment and plan (1) Neck pain: Status: Acute Category: Medical Code(s): M54.2 - Cervicalgia (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 Qualifiers: Spinal osteoarthritis complication: with radiculopathy Qualified Code(s): M47.26 - Other spondylosis with radiculopathy, lumbar region Category: Medical Code(s): M47.816 - Spondylosis without myelopathy or radiculopathy, lumbar region (3) Lumbar radiculopathy: Status: Chronic Category: Medical Code(s): M54.16 - Radiculopathy, lumbar region (4) Spinal stenosis of lumbar region: Status: Chronic Category: Medical Code(s): M48.061 - Spinal stenosis, lumbar region without neurogenic claudication Plan I will change the [place] to 3 times a day and provide a 1 month supply of this along with make sure she has refills on her baclofen. Patient will return to clinic in 1 month for reevaluation of symptoms and plan of care. Risks and benefits of the medication have been explained in detail to the patient. The patient does understand the risk of dependence on the medication when given over a prolonged period. Patient has been advised of risks of oversedation with the prescribed medication. Narcan has been offered to the paitent in the event of oversedation. Patient has been advised that a family member should also be educated regarding administration of Narcan. The patient has been advised to consult with his/her primary care provider and pharmacist regarding drug-drug interaction of medications currently prescribed. Patient has been prescribed a controlled substance after being counseled on the medication, medication safety, and possible side effects. Opioid contract was reviewed and signed by the patient, and that they have agreed to all of the terms set forth by our compliance program. A UDS is needed to verify patient's compliance with our office pain contract. This is ordered based off specific treatments related to chronic pain with the potential to abuse certain medications. Patient has been instructed to contact the clinic with any concerns before the next appointment. Dr. Barnett has reviewed this note and agrees with this plan of care. This note was dictated using voice recognition software and make contain errors or omissions.
== END 2024-11-11 23:59 | disposition home or self-care (01) ==
PROVIDERS: PCP Family Medicine; Visit Provider Nurse Practitioner Family
DX: M54.2 Cervicalgia (principal); M47.26 Other spondylosis with radiculopathy, lumbar region; M48.061 Spinal stenosis, lumbar region without neurogenic claudication; Z79.899 Other long term (current) drug therapy
CPT/HCPCS: 99212; G0463

== ENCOUNTER 2024-11-11 13:05 | Outpatient (CLI) | payer MEDICARE, SELFPAY ==
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
== END 2024-11-11 23:59 | disposition home or self-care (01) ==
LOC: RAD 13:05
PROVIDERS: PCP Family Medicine; Visit Provider Neurological Surgery
DX: M41.86 Other forms of scoliosis, lumbar region (principal); M51.369 Other intervertebral disc degeneration, lumbar region without mention of lumbar back pain or lower extremity pain; M99.73 Connective tissue and disc stenosis of intervertebral foramina of lumbar region; M47.22 Other spondylosis with radiculopathy, cervical region; M47.12 Other spondylosis with myelopathy, cervical region; M99.71 Connective tissue and disc stenosis of intervertebral foramina of cervical region; R26.81 Unsteadiness on feet; Z98.1 Arthrodesis status
CPT/HCPCS: 72141; 72148

== ENCOUNTER 2024-11-25 10:00 | Outpatient (RCR) | payer MEDICARE, SELFPAY | END 2024-11-25 23:59 | disposition home or self-care (01) | LOC: PT 10:00 | PROVIDERS: PCP Family Medicine; Visit Provider Nurse Practitioner Family | DX: M54.2 Cervicalgia (principal); M47.26 Other spondylosis with radiculopathy, lumbar region | CPT/HCPCS: 97014; 97110; 97140; G0283 ==

== ENCOUNTER 2024-12-09 10:25 | Outpatient (POV) | payer MEDICARE, SELFPAY ==
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
--- OUTSIDE RECORDS SUMMARY | 2024-10-25 14:06 | XMS_ITS | Encounter Summary ---
Author Organization Healthcare Address [address] [place] [address] Care Team Providers Care Quartz Miner Blasting Name Role Phone Ulises Judd MD Primary Care Provider [phone] Encounter Details Date Type Department Care Team (Latest Contact Info) Description 10/25/2024 2:06 PM EDT - 10/25/2024 11:59 PM EDT [facility] [address], [address] [place] [phone] Status post cervical spinal fusion Discharge Disposition: Home or Self Care Social History Tobacco Use Types Packs/Day Years [...] drink first t inna in the morning (EYE-SEATING UPHOLSTERER) to steady your nerves or to get [...] AM EST documented as of this encounter Medications at Time of Discharge alendronate (Fosamax) 70 MG tablet Take 1 tablet (70 mg) by mouth once a week. 10/11/2022 Ascorbic Acid (vitamin C) 500 MG tablet Take 1 tablet (500 mg) by mouth 1 (one) time each day. 04/30/2023 B Sjgxoyd-Zzfwzy-NI ( VITAMIN B 50/B-COMPLEX PO) Take 1 tablet by mouth 1 (one) time each day. baclofen (Lioresal) 10 MG tablet 1 tablet. 10/07/2024 bumetanide (Bumex) 1 MG tablet Take by mouth 1 (one) time each day. cyanocobalamin (Vitamin B-12) 500 MCG tablet Take 1 tablet (500 mcg) by mouth 1 (one) time each day. diazePAM (Valium) 2 MG tabletIndications: Cervical myelopathy with cervical radiculopathy (CMS/HCC),Status post cervical spinal fusion Take 1-2 tablets (2-4 mg) by mouth every 6 (six) hours if needed for anxiety, sleep or muscle spasms. 60 tablet 1 11/20/2022 doxycycline (Vibramycin) 100 MG capsule TAKE ONE CAPSULE BY MOUTH EVERY TWELVE HOURS FOR FOURTEEN DAYS -- FINISH ALL MEDICINE -- 11/08/2022 ferrous sulfate 325 (65 Fe) MG tablet Take 1 tablet (325 mg) by mouth 1 (one) time each day with breakfast. HYDROcodone-acetam inophen ([place]) 10-325 MG tablet TAKE ONE TABLET BY MOUTH FOUR TIMES DAILY NEEDED FOR PAIN (scale score 4-6) MAY CAUSE DROWSINESS 10/13/2024 HYDROcodone-acetam inophen ([place]) 7.5-325 MG tablet Take 1 tablet by mouth 4 (four) times a day. Please hold home pain medications while taking the pain medication that was prescribed to you following your surgery. 0 09/04/2022 levothyroxine (Synthroid, Levoxyl) 125 MCG tablet Take 1 tablet (125 mcg) by mouth 1 (one) time each day. 10/11/2022 levothyroxine (Synthroid, Levoxyl) 137 MCG tablet Take 1 tablet by mouth daily. 06/15/2024 methenamine hippurate (Hiprex) 1 g tablet Take 1 tablet (1 g) by mouth 1 (one) time each day. methocarbamol (Robaxin) 750 MG tablet 1 tablet. 09/25/2024 metoprolol succinate XL (Toprol-XL) 25 MG 24 hr tablet Take 1 tablet (25 mg) by mouth 1 (one) time each day. 01/28/2022 Multiple Vitamins-Minerals (GNP Century Mature Women's 50+) tablet Take 1 tablet by mouth 1 (one) time each day. nitroglycerin (Nitrostat) 0.[address] 1 TABLET UNDER TONGUE EVERY 5- 15 MINUTES IF NEEDED FOR CHEST PAIN; MAY REPEAT 2 TIMES; IF NO RELIEF AFTER 3 DOSES CALL 911 OR GO TO ER 04/30/2023 ondansetron (Zofran) 4 MG tablet Take 1 tablet (4 mg) by mouth every 8 (eight) hours if needed. 08/07/2023 oxyCODONE-acetamin ophen (Percocet) 5-325 MG tablet Take 1 tablet by mouth every 6 (six) hours if needed. 08/07/2023 pantoprazole (Protonix) 40 MG EC tablet Take 1 tablet (40 mg) by mouth 1 (one) time each day. 05/10/2021 phenazopyridine (Pyridium) 100 MG tablet Take 1 tablet by mouth. 10/05/2024 potassium chloride ER (Micro-K) 10 MEQ ER capsule Take 1 capsule (10 mEq) by mouth 2 (two) times a day. Do not crush or chew. pramipexole (Mirapex) 1 MG tablet Take 1 tablet (1 mg) by mouth 3 (three) times a day. pregabalin (Lyrica) 75 MG capsuleIndications :Status post cervical spinal fusion,Cervical radiculopathy,Pare sthesias in right hand,Cervical myelopathy with cervical radiculopathy (CMS/HCC) Take 1 capsule (75 mg) by mouth 2 (two) times a day. 60 capsule 11/25/2023 pregabalin (Lyrica) 75 MG capsuleIndications :Status post cervical spinal fusion Take 1 capsule (75 mg) by mouth 2 (two) times a day. 60 capsule 2 01/23/2024 topiramate 50 MG tablet Take 100 mg by mouth 2 (two) times a day. 60 tablet 3 07/17/2022 venlafaxine 150 MG 24 hr tablet TAKE TWO TABLETS BY MOUTH EVERY DAY --TAKE WITH FOOD-- 12/25/2022 venlafaxine XR (Effexor-XR) 150 MG 24 hr capsule 09/13/2022 Xarelto 20 MG tablet Take 1 tablet (20 mg total) by mouth 1 (one) time each day. May resume 2 weeks after your most recent surgery. 09/04/2022 Zinc 50 MG tablet Take 50 mg by mouth 1 (one) time each day. documented as of this encounter Plan of Treatment Upcoming Encounters Date Type Department Care Team (Late st Contact Info) Description 01/03/2025 3:30 PM EDT Office Visit [place] [facility] [address], [address] [place] [address] Trino Trevizo MD [address] [facility] [address] [place] [address] documented as of this encounter Procedures Procedure Name Priority Date/Time Associated Diagnosis Comments XR CERVICAL SPINE 2 OR 3 VIEWS Routine 10/25/2024 2:16 PM EDT Status post cervical spinal fusion documented in this encounter Results * XR Cervical Spine [...] Visit Diagnoses Diagnosis Status post cervical spinal fusion Arthrodesis status documented in this encounter Additional Health Concerns Assessment Noted Time A fall risk assessment has been complete d for the patient 10/25/2024 2:41 PM EDT A Body Mass Index follow-up plan has been documented for the patient 10/25/2024 6:15 PM EDT documented as of this encounter Care Teams Quartz Miner Blasting Relationship Specialty Start Date End Date Ulises Judd [facility] [address] PCP - General 07/27/21 documented as of this encounter
--- OUTSIDE RECORDS SUMMARY | 2024-12-09 10:41 | XMS_ITS | Encounter Summary ---
Author Organization [employer] Address [address] [place] [id number] Care Team Providers Care Order Tracer Name Role Phone Unavailable Primary Care Provider Unavailabl e Encounter Details Date Type Department Care Team (Late st Contact Info) Description 04/12/2020 Transcribed Document [facility] [address] [place] [address] ProviderAbdiel MD [address], [place] [id number] Social History Tobacco Use Types Packs/Day Years Used Date Smoking Tobacco: Never Assessed Comments Unknown Sex and Gender Information Value Date Recorded Sex Assigned at Not on file Legal Sex Female 5:08 PM CDT Gender Identity Not on file Sexual Orientation Not on file documented as of this encounter Miscellaneous Notes * Cerner Conversion Note - Abdiel ProviderMD - 04/12/2020 11:09 AM CDT Initial Discharge Planning Entered On: 04/13/2020 11:09 EDT Performed On: 04/12/2020 11:09 EDT by MAYNOR SEXTON Rn-Mule Developer Initial Assessment I Previously Documented Living Environment : No qualifying data available. Living Situation : Home Patient Lives With : Spouse Emergency Contact #1 : Efren Emergency Contact #1 Phone Number : Emergency Contact #1 Relationship : [phone] Emergency Contact #2 : none Emergency Contact #2 Phone Number : none Emergency Contact #2 Relationship : n one Enter Doctors Name : Dr. London Does Patient have PCP Listed? : Yes Legal Guardian : No MAYNOR SEXTON Rn-Mule Developer - 04/13/2020 11:09 EDT Initial Assessment II Sensory and Motor Deficits : None Current Home Treatments and Equipment : None MAYNOR SEXTON Rn-Mule Developer - 04/13/2020 11:09 EDT Discharge Needs I Anticipated Discharge Date : 04/14/2020 EDT Anticipated Discharge To, CM : Home with family care Current Home Treatment/Equipment : Current Home Treatment/Equipment No qualifying data available. Post Acute/Home Treatments : None Documentation Status Complete : Yes MAYNOR SEXTON Rn-Mule Developer - 04/13/2020 11:09 EDT Discharge Needs II Professional Skilled Services : Professional Skilled Services No qualifying data available. Needs Assistance with Transportation : No Discharge Options Discussed with Patient : Discharge transportation, DME, Home Health, Outpatient services MAYNOR SEXTON Rn-Mule Developer - 04/13/2020 11:09 EDT documented in this encounter Plan of Treatment Not on file documented as of this encounter Visit Diagnoses Not on filedocumented in this encounter
--- OUTSIDE RECORDS SUMMARY | 2024-12-09 10:41 | XMS_ITS | Encounter Summary ---
Author Organization [employer] Address [address] [place] [address] Care Team Providers Care Machine Shop Supervisor Name Role Phone Unavailable Primary Care Provider Unavailabl e Encounter Details Date Type Department Care Team (Late st Contact Info) Description 04/11/2020 Transcribed Document [facility] [place] Family Medicine [address] [place] [address] ProviderAbdiel MD [address] [place] [address] Social History Tobacco Use Types Packs/Day Years Used Date Smoking Tobacco: Never Assessed Comments Unknown Sex and Gender Information Value Date Recorded Sex Assigned at Not on file Legal Sex Female 5:08 PM CDT Gender Identity Not on file Sexual Orientation Not on file documented as of this encounter Miscellaneous Notes * Cerner Conversion Note - Historical ProviderMD - 04/11/2020 11:23 AM CDT Pain Assessment Entered On: 04/12/2020 1:18 EDT Performed On: 04/11/2020 13:42 EDT by Sally Huang, Rn Intervention Information: [email or web address] Performed by GINNY COOL on 04/11/2020 13:12:00 EDT [email or web address],25mcg IV Push,Peripheral Line 1,Pain (Moderate 4-6) Pain Assessment Pain Assessment : Follow-up assessment Pain Scale Goal : 4 Sally Huang, Debra - 04/12/2020 1:18 EDT documented in this encounter Plan of Treatment Not on file documented as of this encounter Visit Diagnoses Not on filedocumented in this encounter
--- OUTSIDE RECORDS SUMMARY | 2024-12-09 10:41 | XMS_ITS | Encounter Summary ---
Author Organization Healthcare Address [address] [place] [address] Care Team Providers Care Fur Remodeler Name Role Phone Ulises Judd MD Primary Care Provider [phone] Reason for Visit * Reason Comments Med Refill Encounter Details Date Type Department Care Team (Late st Contact Info) Description 10/23/2023 Refill [place] [facility] [address], [address] [place] [address] Trino Trevizo MD [address] [place] [address] Status post cervical spinal fusion; Cervical radiculopathy; Paresthesias in right hand; Cervical myelopathy with cervical radiculopathy (CMS/HCC) Social History Tobacco Use Types Packs/Day Years [...] drink first t inna in the morning (EYE-FISHERIES DIRECTOR) to steady your nerves or to get [...] AM EST documented as of this encounter Plan of Treatment Upcoming Encounters Date Type Department Care Team (Late st Contact Info) Description 01/03/2025 3:30 PM EDT Office Visit [facility] [address] [place] [address] Trino Trevizo MD [address] [facility] [address] [place] [address] documented as of this encounter Visit Diagnoses Diagnosis Status post cervical spinal fusion Arthrodesis status Cervical radiculopathy Brachial neuritis or radiculitis nos Paresthesias in right hand Disturbance of skin sensation Cervical myelopathy with cervical radiculopathy (CMS/HCC) documented in this encounter Additional Health Concerns Assessment Noted Time A fall risk assessment has been complete d for the patient 08/25/2023 2:32 PM EST A Body Mass Index follow-up plan has been documented for the patient 08/26/2023 7:29 AM EST documented as of this encounter Care Teams Fur Remodeler Relationship Specialty Start Date End Date Ulises Judd MD [address] [place] [address] PCP - General 07/27/21 documented as of this encounter
--- OUTSIDE RECORDS SUMMARY | 2024-12-09 10:41 | XMS_ITS | Encounter Summary ---
Author Organization Healthcare Address [address] [place] [address] Care Team Providers Care Site Damage Prevention Technician Name Role Phone Ulises Judd MD Primary Care Provider [phone] Reason for Visit * Reason Comments Med Refill Encounter Details Date Type Department Care Team (Late st Contact Info) Description 02/28/2023 [facility]ill [place] [facility] [address], [address] [place] [address] Trino Trevizo MD [address] [place] [address] Cervical myelopathy with cervical radiculopathy (CMS/HCC); Status post cervical spinal fusion Social History Tobacco Use Types Packs/Day Years Used Date Smoking Tobacco: Former Cigarettes Passive Smoke Exposure: Past Smokeless Tobacco: Never Comments:smokng a few cigs. daily currently. Alcohol Use Standard Drinks/Week Comments Not Currently [...] drink first t inna in the morning (EYE-MEDICAL INSURANCE CODING SPECIALIST) to steady your nerves or to get [...] Description 01/03/2025 3:30 PM EDT Office Visit [facility] [address], [address] [place] [address] Trino Trevizo MD [address] [facility] [address] [place] [address] documented as of this encounter Visit Diagnoses Diagnosis Cervical myelopathy with cervical radiculopathy (CMS/HCC) Status post cervical spinal fusion Arthrodesis status documented in this encounter Additional Health Concerns Assessment Noted Time A fall risk assessment has been complete d for the patient 01/20/2023 12:42 PM EDT A Body Mass Index follow-up plan has been documented for the patient 01/20/2023 1:45 PM EDT documented as of this encounter Care Teams Site Damage Prevention Technician Relationship Specialty Start Date End Date Ulises Judd MD [address] [facility] [place] [address] PCP - General 07/27/21 documented as of this encounter
--- OUTSIDE RECORDS SUMMARY | 2024-12-09 10:41 | XMS_ITS | Referral Summary ---
Author Organization [employer] Address [address] [place] [address] Care Team Providers Care Social Service Director Name Role Phone Unavailable Primary Care Provider Unavailabl e Social History Tobacco Use Types Packs/Day Years Used Date Smoking Tobacco: Never Assessed Comments Unknown Sex and Gender Information Value Date Recorded Sex Assigned at Not on file Legal Sex Female 5:08 PM CDT Gender Identity Not on file Sexual Orientation Not on file Plan of Treatment Not on file
--- OUTSIDE RECORDS SUMMARY | 2024-12-09 10:41 | XMS_ITS | Encounter Summary ---
Author Organization Healthcare Address [address] [place] [address] Care Team Providers Care Supervising Floorperson Name Role Phone Ulises Judd MD Primary Care Provider [phone] Reason for Visit * Reason Comments Med Refill Encounter Details Date Type Department Care Team ([facility] Contact Info) Description 05/22/2022 Refill Medical Office Building [facility] [address] [facility], [address] [place] [address] Pino Ponce MD [facility] [place] [address] Social History Tobacco Use Types Packs/Day Years Used Date Smoking Tobacco: Some Days Cigarettes Smokeless Tobacco: Never Comments:smokng a few cigs. daily currently. Alcohol Use Standard Drinks/Week Comments Not Currently 0 (1 standard drink = 0.6 oz pur e alcohol) Comments No Sex and Gender Information Value Date Recorded Sex Assigned at Female 06/18/2021 9:56 AM EST Legal Sex Female 6:52 PM EDT Gender Identity Female 06/18/2021 9:56 AM EST Sexual Orientation Straight 06/18/2021 9: 56 AM EST COVID-19 Exposure Response Date Recorded In the last 10 days, have yo u been in contact with someone who was confirmed or suspected to have Coronavirus/COVID-19? No / Unsure 05/06/2022 9:20 AM EST documented as of this encounter Plan of Treatment Upcoming Encounters Date Type Department Care Team ([facility] st Contact Info) Description 01/03/2025 3:30 PM EDT Office Visit [place] [facility] [address], [address] [place] [address] Trino Trevizo MD [address] [facility] [address] [place] [address] documented as of this encounter Visit Diagnoses Not on filedocumented in this encounter Additional Health Concerns Assessment Noted Time A fall risk assessment has been complete d for the patient 05/07/2022 3:42 PM EST documented as of this encounter Care Teams Supervising Floorperson Relationship Specialty Start Date End Date Ulises Judd MD [address] [facility] [place] [address] PCP - General 07/27/21 documented as of this encounter
--- OUTSIDE RECORDS SUMMARY | 2024-12-09 10:41 | XMS_ITS | Encounter Summary ---
Author Organization Healthcare Address [address] [place] [address] Care Team Providers Care Trumpet Teacher Name Role Phone Ulises Judd MD Primary Care Provider [phone] Reason for Visit * Reason Comments Med Refill Encounter Details Date Type Department Care Team (Late st Contact Info) Description 01/21/2023 Refill [place] [facility] [address], [address] [place] [address] Trino Trevizo MD [address] [facility] [address] [place] [address] Status post cervical spinal fusion Social History [...] drink first t inna in the morning (EYE-MANAGER COMMUNITY) to steady your nerves or to get [...] Description 01/03/2025 3:30 PM EDT Office Visit [place] [facility] [address], [address]st [place] [address] Trino Trevizo MD [address] [address] documented as of this encounter Visit [...] documented as of this encounter Care Teams Trumpet Teacher Relationship Specialty Start Date End Date Ulises Judd MD [address] [place] [address] PCP - General 07/27/21 documented as of this encounter
--- OUTSIDE RECORDS SUMMARY | 2024-12-09 10:41 | XMS_ITS | Encounter Summary ---
Author Organization Healthcare Address [address] [place] [address] Care Team Providers Care Reel Fed Printer Name Role Phone Ulises Judd MD Primary Care Provider [phone] Reason for Visit * Reason Comments Med Refill Encounter Details Date Type Department Care Team (Late st Contact Info) Description 01/21/2023 Refill [place] [facility] [address], [address] [place] [address] Nathan Feliciano MD [address] [facility] [address] [place] [address] Cervical myelopathy with cervical radiculopathy [...] drink first t inna in the morning (EYE-CONVENIENCE STORE MANAGER) to steady your nerves or to get [...] Description 01/03/2025 3:30 PM EDT Office Visit [facility] [address], [address] [place] [address] Trino Trevizo MD [address] [facility] [address] [place] [address] documented as of this encounter Visit Diagnoses [...] documented as of this encounter Care Teams Reel Fed Printer Relationship Specialty Start Date End Date Ulises Judd MD [address] [facility] [place] [address] PCP - General 07/27/21 documented as of this encounter
--- OUTSIDE RECORDS SUMMARY | 2024-12-09 10:41 | XMS_ITS | Encounter Summary ---
Author Organization [employer] Address [address] [place] [address] Care Team Providers Care Research Dietitian Name Role Phone Unavailable Primary Care Provider Unavailabl e Encounter Details Date Type Department Care Team (Late st Contact Info) Description 04/12/2020 Transcribed Document [facility] Family Medicine [address] [place] [address] ProviderAbdiel MD [address] [place] [address] Social History Tobacco Use Types Packs/Day Years Used Date Smoking Tobacco: Never Assessed Comments Unknown Sex and Gender Information Value Date Recorded Sex Assigned at Not on file Legal Sex Female 5:08 PM CDT Gender Identity Not on file Sexual Orientation Not on file documented as of this encounter Miscellaneous Notes * Cerner Conversion Note - Historical ProviderMD - 04/12/2020 3:28 AM CDT Admission History, Adult Entered On: 04/12/2020 3:36 EDT Performed On: 04/12/2020 3:28 EDT by Sally Huang Rn Advance Directive Patient has Advance Directive *Q : No, patient refuses Advance Directive information Sally Huang Rn - 04/12/2020 3:36 EDT Anesthesia/Transfusion History Family History of Anesthesia Reaction : No prior transfusion(s) Blood Transfusion Acceptable to Patient : Yes Transfusion History : Prior anesthesia reaction Type of Anesthesia Reaction : Excessive nausea/vomiting Family History of Anesthesia Reaction : None Sally Huang Rn - 04/12/2020 3:36 EDT Functional Assessment Living Situation : Home Patient Lives With : Spouse Current Home Treatments : Oxygen therapy Sally Huang Rn - 04/12/2020 3:36 EDT General Info Want Family/Rep/Phys Notified of Admit : No Emergency Contact #1 : Efren Emergency Contact #1 Phone Number : marky Emergency Contact #1 Relationship : [phone] Emergency Contact #2 : none Emergency Contact #2 Phone Number : none Emergency Contact #2 Relationship : n one Primary Language : Albanian Communication Barrier : None X Ray Developing Machine Operator Needed : No Sally Huang Rn - 04/12/2020 3:36 EDT Fall Risk Scales ABCs Fall Injury Risk Identification : Age, Coagulation ABC Fall Injury Risk : Moderate to high injury risk BETH Hx Falls Immediate/Within 3 Months : No Beth Secondary Diagnosis : Yes BETH Use of Ambulatory Aid : Crutches/Cane/Walker BETH IV Therapy or IV Access : Yes Beth Gait/Transferring : Weak Beth Mental Status : Oriented to own ability Beth Fall Risk Score : 60 BETH Fall Scale Risk Level : 25-45 Medium Risk Cross Fall Interventions : Adequate lighting Barriers to Learning : None evident Sally Huang Rn - 04/12/2020 3:36 EDT Health Histories Smoking Status : Former smoker, quit more than 30 days ago Smokeless Tobacco Status : Never Sally Huang Rn - 04/12/2020 3:36 EDT Social History (As Of: 04/12/2020 03:36:56 EDT) Alcohol: Alcohol Use History No. (Last Updated: 12/15/2015 07:35:28 EDT by RENETTA DOMÍNGUEZ) Substance Abuse: Drug Use Hx: No. (Last Updated: 12/15/2015 07:35:34 EDT by RENETTA DOMÍNGUEZ) Height and Weight, Clinical Dosing Height Source : Measured Height Entry Format : [place] Height, Feet : 5 ft(Converted to: 152 cm, 60 Inch) Height, Inches : 7 Inch(Converted to: 0 ft 7 Inch, 17.78 cm) Clinical Height : 170.18 cm Weight Source : Standing scale Weight Entry Format : [place] Clinical Dosing Weight : 116.82 kg Weight, Pounds : 257 lb Body Surface Area (BSA) : 2.25 m2 Body Mass Index : 40.3 kg/m2 (>HHI) [place] Body Weight : 61 kg Sally Huang Rn - 04/12/2020 3:36 EDT Infectious Disease History Has the patient ever been tested for COVID-19? : Yes, Patient stated results Negative Where was the COVID-19 Testing completed? : here Where are the test results? : Paper Copy on chart Date of COVID-19 test known? : No Does patient have symptoms of COVID-19? : No COVID19 Screening : No Experiencing Infectious Disease Symptoms : No symptoms Physical contact outside [place] in the last 30 days : No Infectious Disease History : C-Difficile, Chicken pox/Shingles, Influenza Tuberculosis Symptoms : None Sally Huang Rn - 04/12/2020 3:36 EDT Influenza Vaccine Asmt, Adult Previous Vaccines from Immunization Schedule : No qualifying data available. Influenza Immunization, Current Season : No Inactivated Flu Vaccine Contraindications : No contraindications to inactivated influenza vaccine Transplant Workup/Recent Transplant : No Order for Influenza Vaccine : Declined Vaccination Sally Huang Rn - 04/12/2020 3:36 EDT Pneumococcal Vaccine Previous Vaccines from Immunization Schedule : No qualifying data available. Pneumonia Immunization Received : No Pneumococcal Risk Assessment < Age 65 : None Sally Huang Rn - 04/12/2020 3:36 EDT Nutrition History Eating Poorly Due to Decreased Appetite : No Unplanned Weight Loss in Past 3-6 Months : No Malnutrition Screening Tool Total(mal) : 0 Malnutrition Screening Tool Risk Level : Patient not at risk Sally Huang Rn - 04/12/2020 3:36 EDT [place] Suicide Severity Rating Scale (C-SSRS) CSSRS Past Month Wish to be : No CSSRS Past Month Suicidal Thoughts : No CSSRS Lifetime Suicide Behavior : No Suicide Severity Rating Score : 0 Suicide Severity Rating : No Additional Care Required at this time Sally Huang Rn - 04/12/2020 3:36 EDT Psychosocial History Do You Have a History of the Following? : Depression Currently in Unsafe Situation : No Sally Huang Rn - 04/12/2020 3:36 EDT Sleep Apnea Risk Assmt BiPAP/CPAP Ordered for Home Use : Yes Hx of Obstructive Sleep Apnea Diagnosis : Yes BiPAP/CPAP Used at Home : No Reason BiPAP/CPAP Not Used at Home : cant wear it Age over 50 Years Old : Yes Gender Male : No Sally Huagn Rn - 04/12/2020 3:36 EDT Valuables and Belongings Valuables and Belongings : Clothing Clothing : Common streetwear Clothing Disposition : Bedside Sally Huang Rn - 04/12/2020 3:36 EDT documented in this encounter Plan of Treatment Not on file documented as of this encounter Visit Diagnoses Not on filedocumented in this encounter
--- OUTSIDE RECORDS SUMMARY | 2024-12-09 10:41 | XMS_ITS | Encounter Summary ---
Author Organization Healthcare Address [address] [place] [address] Care Team Providers Care Fire Engine Operator Name Role Phone Ulises Judd MD Primary Care Provider Reason for Visit * Reason Comments Med Refill Encounter Details Date Type Department Care Team (Late st Contact Info) Description 12/23/2023 Refill [place] [facility] [address], [address] [place] [address] Trino Trevizo MD [address] [place] [address] Status post cervical spinal fusion; [...] drink first t inna in the morning (EYE-BOAT HOIST OPERATOR) to steady your nerves or to get [...] Description 01/03/2025 3:30 PM EDT Office Visit [facility] [address], [address]st [place] [address] Trino Trevizo MD [address] [facility] [address] [place] [address] documented as of this encounter [...] documented as of this encounter Care Teams Fire Engine Operator Relationship Specialty Start Date End Date Ulises Judd MD [address] [facility] [place] [address] PCP - General 07/27/21 documented as of this encounter
--- OUTSIDE RECORDS SUMMARY | 2024-12-09 10:41 | XMS_ITS | Encounter Summary ---
Author Organization [employer] Address [address] [place] [address] Care Team Providers Care Medication Aide Name Role Phone Unavailable Primary Care Provider Unavailabl e Encounter Details Date Type Department Care Team (Late st Contact Info) Description 04/12/2020 Transcribed Document [facility] Family Medicine [address] [place] [address] ProviderAbdiel MD [address] [place], [place] [id number] Social History Tobacco Use Types Packs/Day Years Used Date Smoking Tobacco: Never Assessed Comments Unknown Sex and Gender Information Value Date Recorded Sex Assigned at Not on file Legal Sex Female 5:08 PM CDT Gender Identity Not on file Sexual Orientation Not on file documented as of this encounter Miscellaneous Notes * Cerner Conversion Note - Abdiel ProviderMD - 04/12/2020 10:11 AM CDT Education-Wound Care Entered On: 04/12/2020 14:34 EDT Performed On: 04/12/2020 10:11 EDT by CARROLL ROMERO RN Teaching/Learning Assessment Barriers To Learning : None evident CARROLL ROMERO RN - 04/12/2020 14:34 EDT Education Topics, Wound Care Wound Education Grid Cleansing Wound : Verbalizes understanding Debridement : Verbalizes understanding Decrease Friction/Shear : Verbalizes understanding Dressing Changes : Verbalizes understanding Diapering : Verbalizes understanding Etiology/Risk Factors : Verbalizes understanding Hygiene : Verbalizes understanding Incontinence Management : Verbalizes understanding Infection Control : Verbalizes understanding Nutritional Support : Verbalizes understanding Pain Management : Verbalizes understanding Plan of Care : Verbalizes understanding Positioning : Verbalizes understanding Postoperative Care : Verbalizes understanding Pressure Relief : Verbalizes understanding Pressure Ulcer Definition : Verbalizes understanding Prevention : Verbalizes understanding Principles of Wound Healing : Verbalizes understanding Product Use : Verbalizes understanding Recognize Signs and Symptoms of Skin Integrity Impairment : Verbalizes understanding Reports Skin Changes to Healthcare Team : Verbalizes understanding Risk Assessment : Verbalizes understanding Skin Assessment : Verbalizes understanding Skin Care : Verbalizes understanding Support Surfaces : Verbalizes understanding Wound Symptoms of Infection : Verbalizes understanding Wound vacuum : Verbalizes understanding Wound Care, Other : Verbalizes understanding CARROLL ROMERO RN - 04/12/2020 14:34 EDT documented in this encounter Plan of Treatment Not on file documented as of this encounter Visit Diagnoses Not on filedocumented in this encounter
--- OUTSIDE RECORDS SUMMARY | 2024-12-09 10:41 | XMS_ITS | Encounter Summary ---
Author Organization Healthcare Address [address] [place] [address] Care Team Providers Care Nuclear Radiologist Name Role Phone Ulises Judd MD Primary Care Provider [phone] Reason for Visit * Reason Comments Med Refill Encounter Details Date Type Department Care Team (Late st Contact Info) Description 11/21/2023 Refill [place] [facility] [address], [address] [place] [address] Trino Trevizo MD [address] [place] [address] Status post cervical spinal fusion [...] drink first t inna in the morning (EYE-BINDER SELECTOR) to steady your nerves or to get [...] Description 01/03/2025 3:30 PM EDT Office Visit [facility] [address], [address] [place] [address] Trino Trevizo MD [address] [facility] [address] [place] [address] documented as of this encounter Visit Diagnoses Diagnosis Status post cervical spinal fusion Arthrodesis status documented in this encounter Additional Health Concerns Assessment Noted Time A fall risk assessment has been complete d for the patient 08/25/2023 2:32 PM EST A Body Mass Index follow-up plan has been documented for the patient 08/26/2023 7:29 AM EST documented as of this encounter Care Teams Nuclear Radiologist Relationship Specialty Start Date End Date Ulises Judd MD [address] [place] [address] PCP - General 07/27/21 documented as of this encounter
--- OUTSIDE RECORDS SUMMARY | 2024-12-09 10:41 | XMS_ITS | Clinical Summary ---
Author Organization [facility] Address [address] [place] [address] Care Team Providers Care Document Image Technician Name Role Phone Ulises Judd MD Primary Care Provider [phone] Allergies Active Allergy Reactions Criticality Noted Date Comments Cross-Linked Hyaluronate Anaphylaxis,Other - please document in the comment field High 05/22/2021 Supartz - Vital signs bottomed out. Gabapentin Hallucinations Medium 02/12/2022 Medications methenamine hippurate (Hiprex) 1 g tablet Take 1 tablet (1 g) by mouth 1 (one) time each day. Active pantoprazole (Protonix) 40 MG EC tablet Take 1 tablet (40 mg) by mouth 1 (one) time each day. 1 Active pramipexole (Mirapex) 1 MG tablet Take 1 tablet (1 mg) by mouth 3 (three) times a day. Active potassium chloride ER (Micro-K) 10 MEQ ER capsule Take 1 capsule (10 mEq) by mouth 2 (two) times a day. Do not crush or chew. Active bumetanide (Bumex) 1 MG tablet Take by mouth 1 (one) time each day. Active metoprolol succinate XL (Toprol-XL) 25 MG 24 hr tablet Take 1 tablet (25 mg) by mouth 1 (one) time each day. 2 Active topiramate 50 MG tablet Take 100 mg by mouth 2 (two) times a day. 60 tablet 3 3 Active ferrous sulfate 325 (65 Fe) MG tablet Take 1 tablet (325 mg) by mouth 1 (one) time each day with breakfast. Active Zinc 50 MG tablet Take 50 mg by mouth 1 (one) time each day. Active cyanocobalamin (Vitamin B-12) 500 MCG tablet Take 1 tablet (500 mcg) by mouth 1 (one) time each day. Active B Jvlzonl-Wxdvzp-IW ( VITAMIN B 50/B-COMPLEX PO) Take 1 tablet by mouth 1 (one) time each day. Active Multiple Vitamins-Minerals (GNP Century Mature Women's 50+) tablet Take 1 tablet by mouth 1 (one) time each day. Active HYDROcodone-aceta minophen (Sparta) 7.5-325 MG tablet Take 1 tablet by mouth 4 (four) times a day. Please hold home pain medications while taking the pain medication that was prescribed to you following your surgery. 0 3 Active Additional Information Patient not taking.Reported on 10/25/2024 Xarelto 20 MG tablet Take 1 tablet (20 mg total) by mouth 1 (one) time each day. May resume 2 weeks after your most recent surgery. 3 Active Additional Information Patient not taking.Reported on 10/25/2024 venlafaxine XR (Effexor-XR) 150 MG 24 hr capsule 3 Active levothyroxine (Synthroid, Levoxyl) 125 MCG tablet Take 1 tablet (125 mcg) by mouth 1 (one) time each day. 3 Active alendronate (Fosamax) 70 MG tablet Take 1 tablet (70 mg) by mouth once a week. 3 Active diazePAM (Valium) 2 MG tabletIndications :Cervical myelopathy with cervical radiculopathy (CMS/HCC),Status post cervical spinal fusion Take 1-2 tablets (2-4 mg) by mouth every 6 (six) hours if needed for anxiety, sleep or muscle spasms. 60 tablet 1 3 Active Additional Information Patient not taking.Reported on 10/25/2024 doxycycline (Vibramycin) 100 MG capsule TAKE ONE CAPSULE BY MOUTH EVERY TWELVE HOURS FOR FOURTEEN DAYS -- FINISH ALL MEDICINE -- 3 Active venlafaxine 150 MG 24 hr tablet TAKE TWO TABLETS BY MOUTH EVERY DAY --TAKE WITH FOOD-- 3 Active Ascorbic Acid (vitamin C) 500 MG tablet Take 1 tablet (500 mg) by mouth 1 (one) time each day. 3 Active nitroglycerin (Nitrostat) 0.[address] 1 TABLET UNDER TONGUE EVERY 5- 15 MINUTES IF NEEDED FOR CHEST PAIN; MAY REPEAT 2 TIMES; IF NO RELIEF AFTER 3 DOSES CALL 911 OR GO TO ER 3 Active ondansetron (Zofran) 4 MG tablet Take 1 tablet (4 mg) by mouth every 8 (eight) hours if needed. 4 Active oxyCODONE-acetami nophen (Percocet) 5-325 MG tablet Take 1 tablet by mouth every 6 (six) hours if needed. 4 Active pregabalin (Lyrica) 75 MG capsuleIndication s:Status post cervical spinal fusion,Cervical radiculopathy,Par esthesias in right hand,Cervical myelopathy with cervical radiculopathy (CMS/HCC) Take 1 capsule (75 mg) by mouth 2 (two) times a day. 60 capsule 4 Active pregabalin (Lyrica) 75 MG capsuleIndication s:Status post cervical spinal fusion Take 1 capsule (75 mg) by mouth 2 (two) times a day. 60 capsule 4 Active Additional Information Patient not taking.Reported on 10/25/2024 pregabalin (Lyrica) 75 MG capsuleIndication s:Status post cervical spinal fusion Take 1 capsule (75 mg) by mouth 2 (two) times a day. 60 capsule 2 4 Active Additional Information Patient not taking.Reported on 10/25/2024 baclofen (Lioresal) 10 MG tablet 1 tablet. 5 Active phenazopyridine (Pyridium) 100 MG tablet Take 1 tablet by mouth. 5 Active HYDROcodone-aceta minophen (Sparta) 10-325 MG tablet TAKE ONE TABLET BY MOUTH FOUR TIMES DAILY NEEDED FOR PAIN (scale score 4-6) MAY CAUSE DROWSINESS 5 Active levothyroxine (Synthroid, Levoxyl) 137 MCG tablet Take 1 tablet by mouth daily. 4 Active methocarbamol (Robaxin) 750 MG tablet 1 tablet. 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, initial encounter 03/15/2022 Pre-operative anxiety 03/15/2022 PND (paroxysmal nocturnal dyspnea) 03/15/2022 Peripheral edema 03/15/2022 Chronic renal insufficiency 03/15/2022 Severe obesity (BMI 35.0-39.9) with comorbidity 03/14/2022 Failure of total knee replacement, subsequent en counter 03/14/2022 Mechanical loosening of internal left knee prost hetic joint 02/13/2022 Overview (02/13/2022): Added automatically from request for surgery [id number] Spinal cord stimulator status 08/03/2021 Arthritis 08/03/2021 Hypertension 08/03/2021 Hypothyroidism 07/25/2021 Gastroesophageal reflux disease 07/25/2021 Nasopharyngeal mass 07/25/2021 PONV (postoperative nausea and vomiting) 022 REFUGIO (obstructive sleep apnea) 07/25/2021 Atrial fibrillation 07/25/2021 Poor tolerance for activity 07/25/2021 Resolved Problems Problem Noted Date Diagnosed Date Resolved Date Cervical spinal cord compression 08/23/2022 09/04/2022 Encounters Date Type Department Care Team Description 10/25/2024 2:06 PM EDT - 10/25/2024 11:59 PM EDT Hospital Encounter [facility] [address], [address] [place] [id number] Status post cervical spinal fusion Discharge Disposition: Home or Self Care 10/25/2024 2:00 PM EDT Office Visit [facility] [address], [address] [place] [address] Trino Trevizo MD Status post cervical spinal fusion (Primary Dx); Gait instability; Cervical radiculopathy; Cervical myelopathy with cervical radiculopathy (CMS/HCC); Low back pain, unspecified back pain laterality, unspecified chronicity, unspecified whether sciatica present 10/25/2024 Travel from Last 3 Months Immunizations Immunization Administration Dates Next Due Influenza, injectable, quadrivalent, preservativ e free 04/30/2022,04/30/2022 Family History Medical History Relation Name Comments Depression Mother Merlyn Hypertension Mother Merlyn Migraines Mother Merlyn Alcohol abuse Other Arthritis Other Diabetes Other Gout Other Heart Problem Other kidney problem Other Anesthesia problems Neg Hx Breast cancer Neg Hx Malig Hyperthermia Neg Hx Relation Name Status Comments Mother Merlyn Other Social History Tobacco Use Types Packs/Day Years Used Date Smoking Tobacco: Former Cigarettes 1 - 11/30/2021 Passive Smoke Exposure: Past Smokeless Tobacco: Never Tobacco Cessation:Counseling Given: Not Answered Comments:I had a mass in my sinuses [...] drink first t inna in the morning (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) to steady your nerves or to get [...] Orientation Straight 06/18/2021 9: 56 AM EST Last Filed Vital Signs Vital Sign Reading Time Taken Comments Blood Pressure 132/80 10/25/2024 2:41 PM EDT Pulse 60 10/25/2024 2:41 PM EDT Temperature 36.6 C (97.8 F) 05/18/2024 11:35 AM EST Respiratory Rate 17 10/28/2022 3:44 PM EDT Oxygen Saturation 95% 10/25/2024 2:41 PM EDT Inhaled Oxygen Concentration - - Weight 102 kg (225 lb 12 oz) 10/25/2024 2:41 PM EDT Height 160 cm (5' 3 ) 10/25/2024 2:41 PM EDT Body Mass Index 39.99 10/25/2024 2:41 PM EDT Plan of Treatment Upcoming Encounters Date Type Department Care Team (Late st Contact Info) Description 01/03/2025 3:30 PM EDT Office Visit [place] [facility] [address], [address] [place] [address] Trino Trevizo MD [address] [place] [address] Health Maintenance Due Date Last Done Comments [facility]-Bone Density Scan 1960 [facility]-Infant/Child/Adol SDOH Screenings 1960 [facility]- SDOH Screenings 1978 [facility]-Adult SDOH Screenings 1978 [facility]-DTaP,Tdap,and Td Vaccines (1 - Tdap) 11/27/1979 CT Colonography 2005 Colonoscopy 2005 FIT-DNA 2005 FIT 2005 FOBT 2005 Sigmoidoscopy 2005 [facility]-Colorectal Cancer Screening 2005 [facility]-Zoster Vaccines (1 of 2) 2010 [facility]-RSV Vaccine: 60+ Years or (1 - Risk 60-74 years 1-dose series) 2020 [facility]-FQACP-18 Vaccine (3 - Moderna risk series) 01/05/2021 12/08/2020, 11/10/2020 [facility]-Breast Cancer Screening 12/06/2023 12/05/2021 [facility]-Depression Screening 01/21/2024 01/20/2023 [facility]-Influenza Vaccine (Season Ended) 2025 05/27/2023, 04/30/2022, 04/30/2022, Additional history exists [facility]-Medicare Annual Wellness (AWV) 09/21/2025 09/21/2024, 09/18/2023 [facility]-HIV Screening Completed 08/23/2022, 07/03/2021 [facility]-Hepatitis C Screening Completed 08/23/2022, 09/2021 [facility]-Pneumococcal Vaccine: 50+ Years Completed 09/18/2023 [facility]-Obesity Intervention Completed 025, 05/18/2024, 08/25/2023, Additional history exists HPV Vaccines Aged Out No longer eligi ble based on patient's age to complete this topic [facility]-HIB Vaccines Aged Out No longer e ligible based on patient's age to complete this topic [facility]-Hepatitis A Vaccines Aged Out No longer eligible based on patient's age to complete this topic [facility]-IPV Vaccines Aged Out No longer e ligible based on patient's age to complete this topic [facility]-Rotavirus Vaccines Aged Out No lo nger eligible based on patient's age to complete this topic Medical Devices Implanted Type Area Storage Engineer Device Identifier Shelf Expiration Date Model / Serial / Lot Cement Palacos Lv W Gent - [id number] - [id number] Implanted:Qty: 6 on 03/15/2022 by Pino Ponce MD at [facility] Cement Left: Knee [employer]-[id number] 08/28/2023 [id number] / [id number] / Putty Fibergraft Bg Xsmall 1cc - [id number] - [id number] Implanted:Qty: 1 on 08/25/2022 by Trino Trevizo MD at [facility] Implant N/A: Spine Cervical [employer] LP-[id number] 12/08/2023 [id number] / [id number] / [id number] Juan Str Ti 4.0x240 - S. - [id number] Implanted:Qty: 1 on 08/27/2022 by Trino Trevizo MD at [facility] Juan N/A: Spine Cervical [employer] LP-[id number] 08/27/2023 [id number] / . / Set Screw - S. - [id number] Implanted:Qty: 11 on 08/27/2022 by Trino Trevizo MD at [facility] Screw N/A: Spine Cervical [employer] LP-[id number] 08/27/2023 [id number] / . / Screw 4.0 Ply 3.5x16 - S. - [id number] Implanted:Qty: 5 on 08/27/2022 by Trino Trevizo MD at [facility] Screw N/A: Spine Cervical [employer] LP-[id number] 08/27/2022 [id number] / . / Screw 4.0 Ply Cfx 4.5x26 - S. - [id number] Implanted:Qty: 2 on 08/27/2022 by Trino Trevizo MD at [facility] Screw N/A: Spine Cervical [employer] LP-[id number] 08/27/2023 [id number] / . / Screw 4.0 Ply Cfx 4.5x30 - S. - [id number] Implanted:Qty: 2 on 08/27/2022 by Trino Trevizo MD at [facility] Screw N/A: Spine Cervical [employer] LP-[id number] 08/27/2023 [id number] / . / Screw 4.0 Ply 4.0x30 - S. - [id number] Implanted:Qty: 1 on 08/27/2022 by Trino Trevizo MD at [facility] Screw N/A: Spine Cervical [employer] LP-[id number] 08/27/2023 [id number] / . / Screw 4.0 Ply 4.0x24 - S. - [id number] Implanted:Qty: 1 on 08/27/2022 by Trino Trevizo MD at [facility] Screw N/A: Spine Cervical [employer] LP-[id number] 08/27/2023 [id number] / . / Tibial Baseplate Size 4 Component - [id number] - [id number] Implanted:Qty: 1 on 03/15/2022 by Pino Ponce MD at [facility] Left: Knee [employer]-[id number] 05/15/2029 [id number]-01 M / [id number] / Stem Ext 33o15de Str Bullet-Tip 20h10wp - [id number] - [id number] Implanted:Qty: 1 on 03/15/2022 by Pino Ponce MD at [facility] Left: Knee [employer]-[id number] 06/01/2029 [id number] / [id number] / Stem Str Fluted 36mm Collar 03pbf595hr - [id number] - [id number] Implanted:Qty: 1 on 03/15/2022 by Pino Ponce MD at [facility] Left: Knee [employer]-[id number] 02/07/2029 -12146-19 M / [id number] / Distalfemur [id number] - [id number] - [id number] Implanted:Qty: 1 on 03/15/2022 by Pino Ponce MD at [facility] Left: Knee [employer]-[id number] 10/17/2029 [id number] / [id number] / One Size Tibial Baseplate Tapered Screw Implanted:Qty: 1 on 03/15/2022 by Pino Ponce MD at [facility] Left: Knee [employer] 12/07/2025 -[id number] / [id number] / Description:NONFILE Eleos Tibial Hinge W/O Rotational Stop - [id number] - [id number] Implanted:Qty: 1 on 03/15/2022 by Pino Ponce MD at [facility] Left: Knee [employer]-[id number] 07/10/2029 [id number] / [id number] / Distalfemur Axial Pin One Size - [id number] - [id number] Implanted:Qty: 1 on 03/15/2022 by Pino Ponce MD at [facility] Left: Knee [employer]-[id number] 12/13/2028 [id number] / [id number] / Tibial Poly Spacer 12mm - [id number] Implanted:Qty: 1 on 03/15/2022 by Pino Ponce MD at [facility] Left: Knee [employer]-140978 02/25/2027 [id number] / / [id number] Compression Pin, 12mm - [id number] Implanted:Qty: 2 on 08/25/2022 by Trino Trevizo MD at [facility] Spine [facility] LP-[id number] 08/25/2023 [id number] / / Bengal Stack Std Lisbeth 30mm - [id number] Implanted:Qty: 1 on 08/25/2022 by Trino Trevizo MD at [facility] N/A: Spine Cervical [employer] LP-[id number] 08/25/2023 [id number] / / Plate Two Level 36mm - [id number] Implanted:Qty: 1 on 08/25/2022 by Trino Trevizo MD at [facility] N/A: Spine Cervical [employer] LP-[id number] 08/25/2023 [id number] / / Self Drilling Screw 18mm - [id number] Implanted:Qty: 3 on 08/25/2022 by Trino Trevizo MD at [facility] N/A: Spine Cervical [employer] LP-[id number] 08/25/2023 [id number] / / Self Drilling Screw 16mm - [id number] Implanted:Qty: 1 on 08/25/2022 by Trino Trevizo MD at [facility] N/A: Spine Cervical [employer] -[id number] 08/25/2023 [id number] / / Graft Vivigen 10cc - [id number] Implanted:Qty: 1 on 08/27/2022 by Trino Trevizo MD at [facility] N/A: Spine Cervical [id number] 04/24/2026 [id number] / / [id number] Matrix Fibergraft Bg Lg 12.5cc - [id number] Implanted:Qty: 1 on 08/27/2022 by Trino Trevizo MD at [facility] N/A: Spine Cervical [employer] LP-[id number] 08/01/2024 [id number] / / [id number] Description:Used part# [id number] Connector Lateral Offset 4.0 L - S. - [id number] Implanted:Qty: 1 on 08/27/2022 by Trino Trevizo MD at [facility] N/A: Spine Cervical [employer] LP-[id number] 08/27/2023 [id number] / . / Procedures Procedure Name Priority Date/Time Associated Diagnosis Comments XR CERVICAL SPINE 2 OR 3 VIEWS Routine 10/25/2024 2:16 PM EDT Status post cervical spinal fusion HEPATITIS C ANTIBODY - ED W/REFLEX TO HCV QUANT PCR STAT 08/23/2022 1:43 PM EST HIV 1/2 ANTIBODY/ANTIGEN SCREEN WITH REFLEX TO HIV I/II DIFFERENTIATION STAT 08/23/2022 1:43 PM EST MAMMOGRAPHY BREAST SCREENING TOMOSYNTHESIS BILATERAL Routine 12/05/2021 11:30 AM EDT Visit for screening mammogram from Last 3 Months or Most Recently Relevant to Health Maintenance Results * XR Cervical Spine 2 or [...] Deleon MD on 10/25/2024 2:27 PM Brittni Sultana PA IMG XR PROCEDURES Final Result * HIV 1 & 2 Antibody/Antigen Screen (08/23/2022 1:43 PM EST) Pathologist [facility] HIV 1 & 2 Antibody/Antigen Screen Non Reactive Non Reactive 08/23/2022 3:06 PM EST [facility] Comment:Screening for HIV 1 & 2 antibodies, and P24 antigen is NONREACTIVE. No confirmatory testing is required. Blood Venous blood specimen / Unknown Venipuncture / Unknown 08/23/2022 1:43 PM EST 08/23/2022 2:22 PM EST Sally Washington MD LAB BLOOD ORDERABLES Final R esult Performing Organization Address City/[facility] Co de Phone Number [facility] [address] [place] [address] * Hepatitis C Antibody - ED (08/23/2022 1:43 PM EST) Hepatitis C Antibody Negative Negative 08/23/2022 3:03 PM EST [facility] Blood Venous blood specimen / Unknown Venipuncture / Unknown 08/23/2022 1:43 PM EST 08/23/2022 2:22 PM EST Sally Washington MD LAB BLOOD ORDERABLES Final R esult Performing Organization Address City/[facility]/ZIP Co de Phone Number [facility] [address] [place] [address] * Mammography Breast Screening Tomosynthesis Bilateral (12/05/2021 11:30 AM EDT) Anatomical Region Laterality Modality Breast Bilateral Mammography Impressions 12/24/2021 8:01 AM EDT No mammographic evidence of malignancy. BI-RADS CATEGORY: Overall: 1 - Negative RECOMMENDATION: - Routine Screening Mammogram in 1 Year. Patient Lifetime Risk Score of Breast Malignancy: 7.0 % This risk assessment is calculated using the Arianna Risk Assessment model which may underestimate the lifetime risk of breast malignancy. COMMUNICATION: Computer-aided detection (CAD) and tomosynthesis were utilized by the radiologist in the interpretation of this examination. The results and recommendations will be sent to the patient in a printed lay language version of the imaging report. Narrative 12/24/2021 8:01 AM EDT EXAM: Mammography Breast Screening Tomosynthesis Bilateral REASON FOR EXAM: Screening Mammogram HISTORY: Patient is 61 y.o. Surgical history includes hysterectomy (Hysterectomy from [employer]). COMPARISON STUDIES: Compared to: 01/05/2019 Mammography Outside Images Upload at [facility] 02/08/2020 Mammography Outside Images Upload at [facility] BREAST COMPOSITION: The breasts are almost entirely fatty. FINDINGS: There are no suspicious masses, calcifications, or areas of architectural distortion in either breast. Ulises Judd MD IMG BI PROCEDURES Final Resul t from Last 3 Months or Most Recently Relevant to Health Maintenance Insurance [employer] MEDICARE Advance Directives * Full Code (Latest Code Status on File) Date Activated Date Inactivated Comments 08/23/2022 9:01 PM 09/04/2022 4:29 PM Question Answer Comments Patient has decision-making capacity? Yes * Full Code Date Activated Date Inactivated Comments 06/18/2022 9:59 AM 06/19/2022 4:37 PM Question Answer Comments Patient has decision-making capacity? Yes * Full Code Date Activated Date Inactivated Comments 03/15/2022 12:42 PM 03/21/2022 6:22 PM Question Answer Comments Patient has decision-making capacity? Yes Care Teams Document Image Technician Relationship Specialty Start Date End Date Ulises Judd MD [address] [place] [address] PCP - General 07/27/21
--- OUTSIDE RECORDS SUMMARY | 2024-12-09 10:41 | XMS_ITS | Encounter Summary ---
Author Organization [employer] Address [address] [place] [address] Care Team Providers Care Waste Machine Tender Name Role Phone Unavailable Primary Care Provider Unavailabl e Encounter Details Date Type Department Care Team (Late st Contact Info) Description 04/11/2020 Transcribed Document [facility] [place] Family Medicine [address] [place] [address] ProviderAbdiel MD [address], [place] [id number] Social History Tobacco Use Types Packs/Day Years Used Date Smoking Tobacco: Never Assessed Comments Unknown Sex and Gender Information Value Date Recorded Sex Assigned at Not on file Legal Sex Female 5:08 PM CDT Gender Identity Not on file Sexual Orientation Not on file documented as of this encounter Miscellaneous Notes * Cerner Conversion Note - Abdiel James MD - 04/11/2020 1:40 PM CDT Patient: MICHAELLE LEONARD Age: 59 Years Sex: Female : 1960 Procedure: 1. Intracardiac echocardiography. 2. Transseptal access. 3. Electrophysiologic study. 4. 3D electroanatomic mapping. 5. Catheter ablation. 6. Isoproterenol provocation. 7. US guided venous access. ATTENDING NETWORKER: Cha Jean-Baptiste MD REFERRING PHYSICIAN: Chris Hernandez MD PROCEDURE INDICATIONS: Symptomatic paroxysmal atrial fibrillation associated with sinus bradycardia could not start AAD. BASELINE ELECTROCARDIOGRAM: The rhythm was normal bradycardia. PROCEDURE SUMMARY: After written, witnessed, informed consent was obtained for the procedure and sedation from the patient,the patient was transferred to the EP laboratory. The patient was in the fasting state. A grounding pad was placed. Self-adhesive anterior- posterior defibrillation pads were applied. Blood pressure was monitored. 1. The groins were prepped and draped in the usual sterile fashion. 2. Local anesthesia with lidocaine was given at the access site. 3. Bilateral femoral vein access was obtained. The vessels were accessed using the modified Seldinger technique under US guidance. 4. Right femoral artery was accessed under US guidance. Esophageal temperature probe was used (CIRCA) 5. A decapolar catheter was positioned in the RA and coronary sinus through the left femoral vein. 6. Intracardiac echocardiography: A phased array 10-Kittitian ICE catheter was advanced into the right atrium via the sheath in the left femoral vein. Echocardiography was used to guide the transseptal puncture, in addition to monitoring for any complications. 7. Transseptal catheterization was performed under fluoroscopic and intracardiac echocardiographic guidance. Heparin bolus was given before and continuous IV infusion was started after transseptal puncture. The sheath in the right femoral vein was exchanged over a wire and transseptal access was performed using a BrockenDodreamsugh needle assembly with SL1. SL1 was then exchanged over Pro-trak wire with 15Fr FlexCath sheath. Arctic Front Advance catheter was advanced through the sheath and positioned in the left atrium. The heparin infusion rate was adjusted to maintain an ACT above 350 seconds throughout the procedure. 8. Electrophysiologic testing was performed with multiple catheter technique. 9. 3D electroanatomic mapping/ablation:3D maps of LA/PV's. 10. Penta-array through SL1 sheath was used to create a pre-voltage map. 11. Ablation of pulmonary veins was performed using cryoaballoon 12. Heparin was revered with protamine at the end of the procedure. Sheaths were then removed and adequate hemostasis was obtained. VASCULAR ACCESS AND CATHETER PROPERTIES: 1. Right femoral vein: An 7-Kittitian short sheath,Biosense Salazar decapolar catheter, in coronary sinus, SVC for diaphragmatic pacing. 2. Left femoral vein: A 11-Kittitian short sheath, Biosense Salazar, Sound Star ICE catheter. 3. Right femoral vein: An 8-Kittitian long sheath (SL1), left atrium, exchanged with 15-Kittitian FlexCath steerable sheath. 4. Right femoral artery: A 4-Kittitian short sheath. ADMINISTERED MEDICATIONS: The procedure was performed under general anesthesia. IV isoproternol was given. ELECTROPHYSIOLOGIC STUDY AND ABLATION: The patient presented to the EP laboratory in sinus rhythm. There was no pericardial effusion present prior to ablation as seen on ICE catheter. PV anatomy was seen by ICE and using pent-array catheter to map LA and create a pre-voltage map. All pulmonary veins were electrically isolated from the left atrium by cryoballoon. Cryoballoon was positioned at the antrum of each vein with confirmed occlusion using contrast injection. Veins were monitored for isolation and then additional 90 seconds were added. Temperature achieved was -38 to -50 C. CryoAblation was stopped once Esophageal temp reached 30 degrees Celsius. Diaphragmatic pacing was performed during isolation of right pulmonary veins(1000 msec, 20mA at 2 ms) with no change of contraction intensity. ICE and 3D mapping were also used to guide Cryoballoon and spiral catheter (achieve) manipulation. Penta-array was exchanged with the CLASEMOVIL Front Advance catheter 3D voltage map of LA and PV's was obtained, showed overall normal voltage on posterior wall, with wide area circumferential ablation around pulmonary veins. Isoproterenol was then infused up to 20 mcg/min. No triggers were noted. EP study was then performed: AH=78 msec, HV=50 msec. IN 148 msec, QRS99 msec. Pent-array was placed in LV to pace LV for CS activation and assessment of Acessory pathway. Retrograde AV jeanie WBCL<380 msec. Concentric CS activation with straight LV pacing. The Flexsheath sheath was then pulled to the right atrium and heparin was reversed using protamine. There was no pericardial effusion present after ablation as seen on ICE catheter. Hemostasis was achieved with a figure of 8. Manual pressure ofr arterial access. COMPLICATIONS: No acute complications. DISCHARGE AND FOLLOWUP: The patient left the EP laboratory to recovery in a stable condition. SUMMARY: 1. Successful pulmonary vein isolation using Cryoballoon ablation. 2. normal baseliune intervals. RECOMMENDATIONS: 1. Bedrest for 4 hours after sheath removal. 2. Restart Xarelto tonight. 3. PPI for one month. Thank you so much for allowing me to participate in the care of your pleasant patient. documented in this encounter Plan of Treatment Not on file documented as of this encounter Visit Diagnoses Not on filedocumented in this encounter
--- OUTSIDE RECORDS SUMMARY | 2024-12-09 10:41 | XMS_ITS | Encounter Summary ---
Author Organization [employer] Address [address] [place] [address] Care Team Providers Care Director Occupational Name Role Phone Unavailable Primary Care Provider Unavailabl e Encounter Details Date Type Department Care Team (Late st Contact Info) Description 04/12/2020 Transcribed Document [facility] [place] Family Medicine [address] [place] [address] ProviderAbdiel MD [address] [place] [address] Social History Tobacco Use Types Packs/Day Years Used Date Smoking Tobacco: Never Assessed Comments Unknown Sex and Gender Information Value Date Recorded Sex Assigned at Not on file Legal Sex Female 5:08 PM CDT Gender Identity Not on file Sexual Orientation Not on file documented as of this encounter Miscellaneous Notes * Cerner Conversion Note - Historical ProviderMD - 04/12/2020 12:59 AM CDT Spiritual Care Short Form Entered On: 04/12/2020 1:00 EDT Performed On: 04/12/2020 0:59 EDT by TORIE TEAGUE Chaplain General Information, Spiritual Care Spiritual Care Referred by : Seasonal Sales Associate initiated Reason for Visit : Initial Ministry Provided to : Patient Intervention/Comment/Summary Points : Door closed quiet within. Chap. prayed o/s pt. room. Focus: restorative sleep followed by renewed strength and robert in AM coupled with renewed realization of God's presence, peace, and eternal provision for body, soul, and spirit thoughout hospital stay. TORIE TEAGUE Chaplain - 04/12/2020 0:59 EDT Electronically signed by Bogdan Garcia Conversion Health Care Marketing Specialist Cerner at 10/15/2022 5:12 PM CDT documented in this encounter Plan of Treatment Not on file documented as of this encounter Visit Diagnoses Not on filedocumented in this encounter
--- OUTSIDE RECORDS SUMMARY | 2024-12-09 10:41 | XMS_ITS | Encounter Summary ---
Author Organization [employer] Address [address] [place] [address] Care Team Providers Care Manager Statistics Name Role Phone Unavailable Primary Care Provider Unavailabl e Encounter Details Date Type Department Care Team (Late st Contact Info) Description 04/12/2020 Transcribed Document [facility] [place] [address] [place] [address] ProviderAbdiel MD [address] [place], [place] [phone] Social History Tobacco Use Types Packs/Day Years Used Date Smoking Tobacco: Never Assessed Comments Unknown Sex and Gender Information Value Date Recorded Sex Assigned at Not on file Legal Sex Female 5:08 PM CDT Gender Identity Not on file Sexual Orientation Not on file documented as of this encounter Miscellaneous Notes * Cerner Conversion Note - Historical ProviderMD - 04/12/2020 8:55 AM CDT UM Authorization Entered On: 04/12/2020 8:55 EDT Performed On: 04/12/2020 8:55 EDT by DORITA LAWRENCE Rn-Utilization Review Primary Insurance Authorization Authorization and Policy Numbers : Insurance 1 Health Plan: [employer] MEDICARE REPL Policy Number: [id number] Authorization Number: [id number] Insurance 2 Health Plan: MEDICAID [place] Policy Number: [id number] Authorization Number: Insurance Primary Name : [facility] MEDICARE REPL Policy Number: [id number] MEDICAID [place] Policy Number: [id number] Historical Authorization Comments-Primary : No Authorization Comments Found DORITA LAWRENCE Rn-Utilization Review - 04/12/2020 8:55 EDT documented in this encounter Plan of Treatment Not on file documented as of this encounter Visit Diagnoses Not on filedocumented in this encounter
--- OUTSIDE RECORDS SUMMARY | 2024-12-09 10:41 | XMS_ITS | Encounter Summary ---
Author Organization [employer] Address [address] [place] [address] Care Team Providers Care Wireless Watcher Name Role Phone Unavailable Primary Care Provider Unavailabl e Encounter Details Date Type Department Care Team (Late st Contact Info) Description 04/12/2020 Transcribed Document [facility] [place] Family Medicine [address] [place] [address] ProviderAbdiel MD [address] [place] [address] Social History Tobacco Use Types Packs/Day Years Used Date Smoking Tobacco: Never Assessed Comments Unknown Sex and Gender Information Value Date Recorded Sex Assigned at Not on file Legal Sex Female 5:08 PM CDT Gender Identity Not on file Sexual Orientation Not on file documented as of this encounter Miscellaneous Notes * Cerner Conversion Note - Historical ProviderMD - 04/12/2020 5:00 PM CDT Chart Check - Review Order Profile Entered On: 04/12/2020 18:54 EDT Performed On: 04/12/2020 17:00 EDT by CARROLL ROMERO RN Chart Check Powerplans Initiated/Discontinued as Appropriate : Yes All Active Orders Reviewed : Yes CARROLL ROMERO RN - 04/12/2020 18:54 EDT documented in this encounter Plan of Treatment Not on file documented as of this encounter Visit Diagnoses Not on filedocumented in this encounter
--- OUTSIDE RECORDS SUMMARY | 2024-12-09 10:41 | XMS_ITS | Encounter Summary ---
Author Organization [employer] Address [address] [place] [address] Care Team Providers Care Deicer Inspector Electric Name Role Phone Unavailable Primary Care Provider Unavailabl e Encounter Details Date Type Department Care Team (Late st Contact Info) Description 04/11/2020 Transcribed Document [facility] [place] Family Medicine [address] [place] [address] ProviderAbdiel MD [address] [place] [address] Social History Tobacco Use Types Packs/Day Years Used Date Smoking Tobacco: Never Assessed Comments Unknown Sex and Gender Information Value Date Recorded Sex Assigned at Not on file Legal Sex Female 5:08 PM CDT Gender Identity Not on file Sexual Orientation Not on file documented as of this encounter Miscellaneous Notes * Cerner Conversion Note - Abdiel ProviderMD - 04/11/2020 7:02 AM CDT Pre Procedure Adult Entered On: 04/11/2020 7:07 EDT Performed On: 04/11/2020 7:02 EDT by DONNA HUTCHINSON RN Height and Weight, Clinical Dosing Height Source : Measured Height Entry Format : Howell Height, Feet : 5 ft(Converted to: 152 cm, 60 Inch) Height, Inches : 7 Inch(Converted to: 0 ft 7 Inch, 17.78 cm) Clinical Height : 170.18 cm Weight Source : Standing scale Weight Entry Format : Howell Clinical Dosing Weight : 116.82 kg Weight, Pounds : 257 lb Body Surface Area (BSA) : 2.25 m2 Body Mass Index : 40.3 kg/m2 (>HHI) Lester Body Weight : 61 kg DONNA HUTCHINSON RN - 04/11/2020 7:02 EDT Health Histories Smoking Status : Former smoker, quit more than 30 days ago Smokeless Tobacco Status : Never DONNA HUTCHINSON RN - 04/11/2020 7:02 EDT Social History (As Of: 04/11/2020 07:07:23 EDT) Alcohol: Alcohol Use History No. (Last Updated: 12/15/2015 07:35:28 EDT by RENETTA DOMÍNGUEZ) Substance Abuse: Drug Use Hx: No. (Last Updated: 12/15/2015 07:35:34 EDT by RENETTA DOMÍNGUEZ) Infectious Disease History Has the patient ever been tested for COVID-19? : Yes, Patient stated results Negative Where was the COVID-19 Testing completed? : here Where are the test results? : Paper Copy on chart Date of COVID-19 test known? : Yes Date of COVID-19 Test : 04/07/2020 EDT Does patient have symptoms of COVID-19? : No COVID19 Screening : No Experiencing Infectious Disease Symptoms : No symptoms Physical contact outside [place] in the last 30 days : No Infectious Disease History : C-Difficile, Chicken pox/Shingles, Influenza Tuberculosis Symptoms : None DONNA HUTCHINSON RN - 04/11/2020 7:02 EDT COVID19 PreProcedure Screening Is this an Emergent or Add on Procedure? : No Date of COVID-19 test known? : Yes Date of COVID-19 Test : 04/07/2020 EDT Has patient been isolated since the test : Yes Exposed to COVID19 symptoms since test? : No DONNA HUTCHINSON RN - 04/11/2020 7:02 EDT Anesthesia/Transfusion History Family History of Anesthesia Reaction : No prior transfusion(s) Blood Transfusion Acceptable to Patient : Yes Transfusion History : Prior anesthesia reaction Type of Anesthesia Reaction : Excessive nausea/vomiting Family History of Anesthesia Reaction : None DONNA HUTCHINSON RN - 04/11/2020 7:02 EDT Functional Assessment Living Situation : Home Patient Lives With : Spouse Current Home Treatments : Oxygen therapy DONNA HUTCHINSON RN - 04/11/2020 7:02 EDT [place] Suicide Severity Rating Scale (C-SSRS) CSSRS Past Month Wish to be : No CSSRS Past Month Suicidal Thoughts : No CSSRS Lifetime Suicide Behavior : No Suicide Severity Rating Score : 0 Suicide Severity Rating : No Additional Care Required at this time DONNA HUTCHINSON RN - 04/11/2020 7:02 EDT Psychosocial History Do You Have a History of the Following? : Depression Currently in Unsafe Situation : No DONNA HUTCHINSON RN - 04/11/2020 7:02 EDT Advance Directive Patient has Advance Directive *Q : No, patient refuses Advance Directive information DONNA HUTCHINSON RN - 04/11/2020 7:02 EDT General Info Want Family/Rep/Phys Notified of Admit : No Emergency Contact #1 : Efren Emergency Contact #1 Phone Number : Emergency Contact #1 Relationship : [phone] Emergency Contact #2 : none Emergency Contact #2 Phone Number : none Emergency Contact #2 Relationship : n one Primary Language : Zambian Communication Barrier : None Injection Molding Engineer Needed : No DONNA HUTCHINSON RN - 04/11/2020 7:02 EDT Sleep Apnea Risk Assmt BiPAP/CPAP Ordered for Home Use : Yes Hx of Obstructive Sleep Apnea Diagnosis : Yes BiPAP/CPAP Used at Home : No Reason BiPAP/CPAP Not Used at Home : cant wear it Age over 50 Years Old : Yes Gender Male : No DONNA HUTCHINSON RN - 04/11/2020 7:02 EDT Krish Scale Krish Sensory Perception : No impairment Krish Moisture : Rarely moist Krish Activity : Walks frequently Krish Mobility : No limitation Krish Nutrition : Adequate Krish Friction and Shear : No apparent problem Krish Score : 22 DONNA HUTCHINSON RN - 04/11/2020 7:02 EDT Fall Risk Scales ABCs Fall Injury Risk Identification : Coagulation ABC Fall Injury Risk : Moderate to high injury risk BETH Hx Falls Immediate/Within 3 Months : No Beth Secondary Diagnosis : No BETH Use of Ambulatory Aid : None BETH IV Therapy or IV Access : Yes Beth Gait/Transferring : Normal, bedrest, immobile Beth Mental Status : Oriented to own ability Beth Fall Risk Score : 20 BETH Fall Scale Risk Level : 0-24 Low Risk [place] Fall Interventions : Adequate lighting, Assistive devices within reach, Bed in low position, Call device within reach, Fall prevention handout/education per facility policy, Hourly comfort/safety rounds, Non-slip footwear, Personal items within reach, Reinforced to call for assistance before getting out of bed, Room free of clutter/spills, Upper side-rails up, Wheels locked, Wires/Cords secured DONNA HUTCHINSON RN - 04/11/2020 7:02 EDT Valuables and Belongings Valuables and Belongings : Clothing Clothing : Common streetwear Clothing Disposition : Bedside DONNA HUTCHINSON RN - 04/11/2020 7:02 EDT documented in this encounter Plan of Treatment Not on file documented as of this encounter Visit Diagnoses Not on filedocumented in this encounter
--- OUTSIDE RECORDS SUMMARY | 2024-12-09 10:41 | XMS_ITS | Encounter Summary ---
Author Organization [facility] Address [address] [place] [address] Care Team Providers Care Director Business Travel Name Role Phone Ulises Judd MD Primary Care Provider [phone] Reason for Visit * Reason Comments Med Refill Encounter Details Date Type Department Care Team (Late st Contact Info) Description 05/21/2023 [facility]ill [place] [facility] [address] [place] [address] Trino Trevizo MD [address] [place] [address] Cervical myelopathy with cervical radiculopathy [...] drink first t inna in the morning (EYE-GINSENG FARMER) to steady your nerves or to get [...] AM EST documented as of this encounter Miscellaneous Notes * Telephone Encounter - Brittni Sultana PA - 05/21/2023 1:33 PM EST Tavo request #: [id number] was reviewed and appropriate. Refill for Lyrica 75 mg BID sent to Dr. Trevizo for authorization. documented in this encounter Plan of Treatment Upcoming Encounters Date Type Department Care Team (Late st Contact Info) Description 01/03/2025 3:30 PM EDT Office Visit [place] [facility] [address] [place] [address] Trino Trevizo MD [address] [facility] [address] [place] [address] documented as of this encounter Visit Diagnoses Diagnosis Cervical myelopathy with cervical radiculopathy (CMS/HCC) Status post cervical spinal fusion Arthrodesis status documented in this encounter Additional Health Concerns Assessment Noted Time A fall risk assessment has been complete d for the patient 05/13/2023 11:05 AM EST A Body Mass Index follow-up plan has been documented for the patient 05/13/2023 11:30 AM EST documented as of this encounter Care Teams Director Business Travel Relationship Specialty Start Date End Date Ulises Judd MD [address] [facility] [place] [address] PCP - General 07/27/21 documented as of this encounter
--- OUTSIDE RECORDS SUMMARY | 2024-12-09 10:41 | XMS_ITS | Encounter Summary ---
Author Organization [employer] Address [address] [place] [address] Care Team Providers Care Bonding Equipment Operator Name Role Phone Unavailable Primary Care Provider Unavailabl e Encounter Details Date Type Department Care Team (Late st Contact Info) Description 04/12/2020 Transcribed Document [facility] [place] Family Medicine [address] [place] [address] ProviderAbdiel MD [address] [place], [place] [id number] Social History Tobacco Use Types Packs/Day Years Used Date Smoking Tobacco: Never Assessed Comments Unknown Sex and Gender Information Value Date Recorded Sex Assigned at Not on file Legal Sex Female 5:08 PM CDT Gender Identity Not on file Sexual Orientation Not on file documented as of this encounter Miscellaneous Notes * Cerner Conversion Note - Abdiel ProviderMD - 04/12/2020 8:00 AM CDT Patient: MICHAELLE LEONARD Age: 59 years Sex: Female : 1960 Associated Diagnoses: None Author: MANDO BUCIO MD-CAR Allergies (1) Active Reaction Supartz None Documented [facility] EP Discharge Summary: Primary Winding Inspector: Dr. Hernandez PCP: Saundra Angel Consults: Dr. Jean-Baptiste- EP History of Present Illness: Patient is a very pleasant 59 yo female who follows with Dr. Hernandez, with PMH significant for paroxysmal atrial fibrillation. As per EKG, she appears to be currently in normal sinus rhythm. She is anticoagulated. She has had recurrent episodes of paroxysmal A. fib at least once to twice a week, lasting up to an hour in duration. She has a monitor that checks pulse rate and she states it shows HR as high as 180 during these episodes. She reports that she has had a Holter monitor study about three months ago at [facility] when she was diagnosed with PAF. She admits to associated symptoms of shortness of breath, chest heaviness and at times, dizziness. Of note the patient has a normal left ventricular systolic function. Also suffers with bilateral lower extremity edema, she is known to have obstructive sleep apnea and she has restarted using CPAP again. Patient has sinus bradycardia at baseline and she may not tolerate AAD. Will proceed with PVI. She said that her mother had AF ablation and she is familiar with the procedure as a management strategy of AF. Admitting Diagnosis: 1. Symptomatic Paroxysmal Afib 2. Palpitations Surgical History: 1. Gastric bypass 2. cholecystectomy Pertinent Labs/Results Blood Gases (Current Encounter/Past 24 Hours) No Blood Gas Results Found (Past 24 Hours) Labs (Last four charted values) WBC H 11.2 (APR 12) 8.2 (APR 11) HB 11.5 (APR 12) 12.8 (APR 11) HCT 36.7 (APR 12) 40.3 (APR 11) Plt 249 (APR 12) 244 (APR 11) Na 139 (APR 12) 139 (APR 11) K 3.5 (APR 12) 3.5 (APR 11) Cl 103 (APR 12) 107 (APR 11) CO2 32 (APR 12) 27 (APR 11) BUN 20 (APR 12) 22 (APR 11) Cr H 1.20 (APR 12) H 1.10 (APR 11) Glu R H 131 (APR 12) 104 (APR 11) Ca 9.1 (APR 12) 9.4 (APR 11) Total Cholesterol Triglycerides HDL LDL Telemetry: Normal sinus rhythm, sinus bradycardia with HR 50's Procedures this admission: 1. Successful pulmonary vein isolation using Cryoballoon ablation. 2. normal baseline intervals. Groins soft this morning. Limited Echo to rule out pericardial effusion this morning unremarkable (chest discomfort) Discharge Diagnoses: 1. Hypothyroidism 2. CKD 3. DM 4. PAD 5. Anxiety Discharge Medications: 1. Baclofen 20 MG Oral Tablet 2. busPIRone HCl - 10 MG Oral Tablet 3. Digoxin 125 MCG Oral Tablet 4. Escitalopram Oxalate 10 MG Oral Tablet 5. Furosemide 80 MG Oral Tablet 6. Gabapentin 300 MG Oral Capsule 7. HYDROcodone-Acetaminophen 7.5-325 MG Oral Tablet 8. Levothyroxine Sodium 125 MCG Oral Tablet 9. Naproxen Sodium 550 MG Oral Tablet 10. Omeprazole 40 MG Oral Capsule Delayed Release 11. Potassium Chloride ER 10 MEQ Oral Capsule Extended Release 12. Pramipexole Dihydrochloride 1 MG Oral Tablet 13. Topiramate 50 MG Oral Tablet 14. Venlafaxine HCl ER 150 MG Oral Capsule Extended Release 24 Hour 15. Xarelto 20 MG Oral Tablet Allergies (1) Active Reaction No Known Medication Allergies None Documented Disposition: Patient sent home in stable condition with family support. Discharge Instructions: Cardiac Diet. Post Cardiac ablation Instructions. Activity as tolerated. Smoking cessation and risk factor modification addressed. Followup Appointments: PCP as scheduled Primary Winding Inspector as scheduled EP in 1 month Patient has been instructed on and verbalized an understanding of the above discharge instructions. Plan has been discussed and is in agreement with Dr. Bucio. Billie Mckinnon, RN documenting for Dr. Bucio. documented in this encounter Plan of Treatment Not on file documented as of this encounter Visit Diagnoses Not on filedocumented in this encounter
--- OUTSIDE RECORDS SUMMARY | 2024-12-09 10:41 | XMS_ITS | Encounter Summary ---
Author Organization [employer] Address [address] [place] [address] Care Team Providers Care Cage Maker Name Role Phone Unavailable Primary Care Provider Unavailabl e Encounter Details Date Type Department Care Team (Late st Contact Info) Description 04/12/2020 Transcribed Document [facility] [place] Family Medicine [address] [place] [address] ProviderAbdiel MD [address] [place] [address] Social History Tobacco Use Types Packs/Day Years Used Date Smoking Tobacco: Never Assessed Comments Unknown Sex and Gender Information Value Date Recorded Sex Assigned at Not on file Legal Sex Female 5:08 PM CDT Gender Identity Not on file Sexual Orientation Not on file documented as of this encounter Miscellaneous Notes * Cerner Conversion Note - Historical ProviderMD - 04/12/2020 10:39 AM CDT Nursing Discharge Summary Entered On: 04/12/2020 10:40 EDT Performed On: 04/12/2020 10:39 EDT by CARROLL ROMERO, prepared foods service team member Documentation Patient Disposition, General : Discharge Discharge To : Home with ambulatory/outpatient follow-up Education Comment : CARROLL Garnett, RN - 04/12/2020 10:39 EDT Electronically signed by Jose [facility] Conversion Linecasting Machine Keyboard Operator Cerner at 10/15/2022 5:22 PM CDT documented in this encounter Plan of Treatment Not on file documented as of this encounter Visit Diagnoses Not on filedocumented in this encounter
--- OUTSIDE RECORDS SUMMARY | 2024-12-09 10:41 | XMS_ITS | Encounter Summary ---
Author Organization [employer] Address [address] [place] [address] Care Team Providers Care Second Time Worker Name Role Phone Unavailable Primary Care Provider Unavailabl e Encounter Details Date Type Department Care Team (Late st Contact Info) Description 04/12/2020 Transcribed Document [facility] [place] [address] [place] [address] ProviderAbdiel MD [address] [place] [address] Social History Tobacco Use Types Packs/Day Years Used Date Smoking Tobacco: Never Assessed Comments Unknown Sex and Gender Information Value Date Recorded Sex Assigned at Not on file Legal Sex Female 5:08 PM CDT Gender Identity Not on file Sexual Orientation Not on file documented as of this encounter Miscellaneous Notes * Cerner Conversion Note - Historical ProviderMD - 04/12/2020 10:39 AM CDT Stroke/Warfarin Instructions Entered On: 04/12/2020 10:39 EDT Performed On: 04/12/2020 10:39 EDT by CARROLL ROMERO RN Stroke/Warfarin Instructions Stroke/TIA Discharge Ins : N/A Warfarin Discharge Ins : N/A CARROLL ROMERO RN - 04/12/2020 10:39 EDT documented in this encounter Plan of Treatment Not on file documented as of this encounter Visit Diagnoses Not on filedocumented in this encounter
--- OUTSIDE RECORDS SUMMARY | 2024-12-09 10:42 | XMS_ITS | Encounter Summary ---
Author Organization [employer] Address [address] [place] [address] Care Team Providers Care Vacuum Filter Operator Name Role Phone Unavailable Primary Care Provider Unavailabl e Encounter Details Date Type Department Care Team (Late st Contact Info) Description 04/18/2020 Transcribed Document [facility] [place] Family Medicine [facility] [place] [address] ProviderAbdiel MD [address] [place] [address] Social History Tobacco Use Types Packs/Day Years Used Date Smoking Tobacco: Never Assessed Comments Unknown Sex and Gender Information Value Date Recorded Sex Assigned at Not on file Legal Sex Female 5:08 PM CDT Gender Identity Not on file Sexual Orientation Not on file documented as of this encounter Miscellaneous Notes * Cerner Conversion Note - Abdiel ProviderMD - 04/18/2020 8:37 AM CDT HISTORY AND PHYSICAL UPDATE Update Required: The appropriate section below MUST be completed prior to authentication. UPDATE: The History and Physical performed by Cha Jean-Baptiste on 03/20/2020___ has been reviewed, patient was examined, and no change has occurred since the History and Physical was completed. OR UPDATE: The History and Physical performed by on has been reviewed and patient examined. The only significant change(s) in the patient's history or condition since the History and Physical was completed are indicated below: Significant Changes: Electronically signed by Interface, Sjh Conversion Optical Effects Line Up Person Cerner at 10/15/2022 5:10 PM CDT documented in this encounter Plan of Treatment Not on file documented as of this encounter Visit Diagnoses Not on filedocumented in this encounter
--- OUTSIDE RECORDS SUMMARY | 2024-12-09 10:42 | XMS_ITS | Encounter Summary ---
Author Organization Healthcare Address [address] [place] [address] Care Team Providers Care American Indian Policy Specialist Name Role Phone Ulises Judd MD Primary Care Provider [phone] Reason for Visit * Reason Comments Med Refill Encounter Details Date Type Department Care Team (Late st Contact Info) Description 01/23/2024 Refill [place] [facility] [address] [place] [address] Trino Trevizo MD [address] [place] [address] Status post cervical spinal fusion [...] drink first t inna in the morning (EYE-ALCOHOL RUBBER) to steady your nerves or to get [...] Telephone Encounter - Brittni Sultana PA - 01/23/2024 4:11 PM EDT Report # : [id number] was reviewed and appropriate. Medication refill for Lyrica was sent to Dr. Trevizo for authorization. documented in this encounter Plan of Treatment Upcoming Encounters Date Type Department Care Team (Late st Contact Info) Description 01/03/2025 3:30 PM EDT Office Visit [place] [facility] [address] [place] [address] Trino Trevizo MD [address] [facility] [address] [place] [phone] documented as of this encounter Visit Diagnoses Diagnosis Status post cervical spinal fusion Arthrodesis status documented in this encounter Additional Health Concerns Assessment Noted Time A fall risk assessment has been complete d for the patient 08/25/2023 2:32 PM EST A Body Mass Index follow-up plan has been documented for the patient 08/26/2023 7:29 AM EST documented as of this encounter Care Teams American Indian Policy Specialist Relationship Specialty Start Date End Date Ulises Judd MD [address] [place] [address] PCP - General 07/27/21 documented as of this encounter
--- OUTSIDE RECORDS SUMMARY | 2024-12-09 10:42 | XMS_ITS | Clinical Summary ---
Author Organization [employer] Address [address] [place] [address] Care Team Providers Care Wire Photo Operator News Name Role Phone Unavailable Primary Care Provider [...]
--- OUTSIDE RECORDS SUMMARY | 2024-12-09 10:42 | XMS_ITS | Encounter Summary ---
Author Organization [employer] Address [address] [place] [address] Care Team Providers Care Ironworker Apprentice Name Role Phone Unavailable Primary Care Provider Unavailabl e Encounter Details Date Type Department Care Team (Late st Contact Info) Description 04/13/2020 Transcribed Document [facility] [place] Family Medicine [address] [place] [address] ProviderAbdiel MD [address] [place] [id number] Social History Tobacco Use Types Packs/Day Years Used Date Smoking Tobacco: Never Assessed Comments Unknown Sex and Gender Information Value Date Recorded Sex Assigned at Not on file Legal Sex Female 5:08 PM CDT Gender Identity Not on file Sexual Orientation Not on file documented as of this encounter Miscellaneous Notes * Cerner Conversion Note - Abdiel ProviderMD - 04/13/2020 11:00 AM CDT Final Discharge Planning Entered On: 04/12/2020 13:30 EDT Performed On: 04/13/2020 11:00 EDT by MAYNOR SEXTON Rn-Project Hire Final Discharge Planning Transportation Needs : Family/Friend Follow Up Appointment Scheduled : Yes Is Patient High/Moderate Readmission Risk? : No Discharge Arrangements : Patient Post-Acute Information Patient Name: MICHAELLE LEONARD Gender: Female : [birth year] Age: 59 Years No Post-Acute Placement(s) Listed No Post-Acute Service(s) Listed No Cur[place] Referral(s) Listed Patient/Family Notified of Plan : Yes Is Patient Ready for Discharge? : Yes Physician Notified Patient is Ready for Discharge? : Yes Discharge To Care Management : Home/Residential/Senior Care or Self Care -01 MAYNOR SEXTON, Rn-Project Hire - 04/13/2020 11:10 EDT documented in this encounter Plan of Treatment Not on file documented as of this encounter Visit Diagnoses Not on filedocumented in this encounter
--- OUTSIDE RECORDS SUMMARY | 2024-12-09 10:42 | XMS_ITS | Encounter Summary ---
Author Organization Healthcare Address [address] [place] [address] Care Team Providers Care Scrap Separator Name Role Phone Ulises Judd MD Primary Care Provider [phone] Reason for Visit * Reason Comments Med Refill Encounter Details Date Type Department Care Team (Late st Contact Info) Description 04/20/2024 Refill [place] [facility] [address] [place] [address] Trino Trevizo MD [address] [place] [address] Status post cervical spinal fusion [...] drink first t inna in the morning (EYE-BLOOD BANK BOOKING CLERK) to steady your nerves or to get [...] Description 01/03/2025 3:30 PM EDT Office Visit [facility] [address] [place] [address] Trino Trevizo MD [address] [facility] [address] [place] [phone] documented as of this encounter Visit Diagnoses Diagnosis Status post cervical spinal fusion Arthrodesis status documented in this encounter Additional Health Concerns Assessment Noted Time A fall risk assessment has been complete d for the patient 08/25/2023 2:32 PM EST A Body Mass Index follow-up plan has been documented for the patient 08/26/2023 7:29 AM EST documented as of this encounter Care Teams Scrap Separator Relationship Specialty Start Date End Date Ulises Judd MD [address] [place] [address] PCP - General 07/27/21 documented as of this encounter
--- OUTSIDE RECORDS SUMMARY | 2024-12-09 10:42 | XMS_ITS | Encounter Summary ---
Author Organization [email or web address] Address [address] [place] [address] Care Team Providers Care Software Clerk Name Role Phone Unavailable Primary Care Provider Unavailabl e Encounter Details Date Type Department Care Team (Late st Contact Info) Description 04/11/2020 Transcribed Document [facility] [place] [address] [place] [address] ProviderAbdiel MD [address], [place] [phone] Social History Tobacco Use Types Packs/Day Years Used Date Smoking Tobacco: Never Assessed Comments Unknown Sex and Gender Information Value Date Recorded Sex Assigned at Not on file Legal Sex Female 5:08 PM CDT Gender Identity Not on file Sexual Orientation Not on file documented as of this encounter Miscellaneous Notes * Cerner Conversion Note - Historical ProviderMD - 04/11/2020 2:38 PM CDT Admission History, Adult Entered On: 04/11/2020 14:40 EDT Performed On: 04/11/2020 14:38 EDT by CARROLL ROMERO RN Advance Directive Patient has Advance Directive *Q : No, patient refuses Advance Directive information CARROLL ROMERO RN - 04/11/2020 14:38 EDT Anesthesia/Transfusion History Family History of Anesthesia Reaction : No prior transfusion(s) Blood Transfusion Acceptable to Patient : Yes Transfusion History : Prior anesthesia reaction Type of Anesthesia Reaction : Excessive nausea/vomiting Family History of Anesthesia Reaction : None CARROLL ROMERO RN - 04/11/2020 14:38 EDT Functional Assessment Living Situation : Home Patient Lives With : Spouse Current Home Treatments : Oxygen therapy CARROLL ROMERO RN - 04/11/2020 14:38 EDT General Info Want Family/Rep/Phys Notified of Admit : No Emergency Contact #1 : Efren Emergency Contact #1 Phone Number : marky Emergency Contact #1 Relationship : [phone] Emergency Contact #2 : none Emergency Contact #2 Phone Number : none Emergency Contact #2 Relationship : n one Primary Language : French Communication Barrier : None Swing Manager Needed : No CARROLL ROMERO RN - 04/11/2020 14:38 EDT Fall Risk Scales ABCs Fall Injury Risk Identification : None BETH Hx Falls Immediate/Within 3 Months : No Beth Secondary Diagnosis : Yes BETH Use of Ambulatory Aid : Bed rest/Nurse assist BETH IV Therapy or IV Access : Yes Beth Gait/Transferring : Weak Beth Mental Status : Oriented to own ability Beth Fall Risk Score : 45 BETH Fall Scale Risk Level : 25-45 Medium Risk [place] Fall Interventions : Adequate lighting, Assistive devices within reach, Bed in low position Barriers to Learning : None evident CARROLL ROMERO RN - 04/11/2020 14:38 EDT Health Histories Smoking Status : Former smoker, quit more than 30 days ago Smokeless Tobacco Status : Never CARROLL ROMERO RN - 04/11/2020 14:38 EDT Social History (As Of: 04/11/2020 14:40:24 EDT) Alcohol: Alcohol Use History No. (Last Updated: 12/15/2015 07:35:28 EDT by RENETTA DOMÍNGUEZ) Substance Abuse: Drug Use Hx: No. (Last Updated: 12/15/2015 07:35:34 EDT by RENETTA DOMÍNGUEZ) Height and Weight, Clinical Dosing Height Source : Measured Height Entry Format : [place] Height, Feet : 5 ft(Converted to: 152 cm, 60 Inch) Height, Inches : 7 Inch(Converted to: 0 ft 7 Inch, 17.78 cm) Clinical Height : 170.18 cm Weight Source : Standing scale Weight Entry Format : [place] Clinical Dosing Weight : 116.82 kg Weight, Pounds : 257 lb Body Surface Area (BSA) : 2.25 m2 Body Mass Index : 40.3 kg/m2 (>HHI) [place] Body Weight : 61 kg CARROLL ROMERO RN - 04/11/2020 14:38 EDT Infectious Disease History Has the patient [...] Chicken pox/Shingles, Influenza Tuberculosis Symptoms : None CARROLL ROMERO RN - 04/11/2020 14:38 EDT Influenza Vaccine Asmt, Adult Previous Vaccines from Immunization Schedule : No qualifying data available. Influenza Immunization, Current Season : No Inactivated Flu Vaccine Contraindications : No contraindications to inactivated influenza vaccine Transplant Workup/Recent Transplant : Yes CARROLL ROMERO RN - 04/11/2020 14:38 EDT Pneumococcal Vaccine Previous Vaccines from Immunization Schedule : No qualifying data available. Pneumonia Immunization Received : No Pneumococcal Risk Assessment < Age 65 : None CARROLL ROMERO RN - 04/11/2020 14:38 EDT Nutrition History Eating Poorly Due to Decreased Appetite : No Unplanned Weight Loss in Past 3-6 Months : No Malnutrition Screening Tool Total(mal) : 0 Malnutrition Screening Tool Risk Level : Patient not at risk CARROLL ROMERO RN - 04/11/2020 14:38 EDT [place] Suicide Severity Rating Scale (C-SSRS) CSSRS Past Month Wish to be : No CSSRS Past Month Suicidal Thoughts : No CSSRS Lifetime Suicide Behavior : No Suicide Severity Rating Score : 0 Suicide Severity Rating : No Additional Care Required at this time CARROLL ROMERO RN - 04/11/2020 14:38 EDT Psychosocial History Do You Have a History of the Following? : Depression Currently in Unsafe Situation : No CARROLL ROMERO RN - 04/11/2020 14:38 EDT Sleep Apnea Risk Assmt BiPAP/CPAP Ordered for Home Use : Yes Hx of Obstructive Sleep Apnea Diagnosis : Yes BiPAP/CPAP Used at Home : No Reason BiPAP/CPAP Not Used at Home : cant wear it Age over 50 Years Old : Yes Gender Male : No CARROLL ROMERO RN - 04/11/2020 14:38 EDT Valuables and Belongings Valuables and Belongings : Clothing Clothing : Common streetwear Clothing Disposition : Bedside CARROLL ROMERO RN - 04/11/2020 14:38 EDT Electronically signed by Jose, [facility] Conversion Pastry Mixer Cerner at 10/15/2022 5:26 PM CDT documented in this encounter Plan of Treatment Not on file documented as of this encounter Visit Diagnoses Not on filedocumented in this encounter
--- OUTSIDE RECORDS SUMMARY | 2024-12-09 10:42 | XMS_ITS | Encounter Summary ---
Author Organization [employer] Address [address] [place] [address] Care Team Providers Care Compliance Director Name Role Phone Unavailable Primary Care Provider Unavailabl e Encounter Details Date Type Department Care Team (Late st Contact Info) Description 04/11/2020 Transcribed Document [facility] [place] Family Medicine [address] [place] [address] ProviderAbdiel MD [address] [place] [address] Social History Tobacco Use Types Packs/Day Years Used Date Smoking Tobacco: Never Assessed Comments Unknown Sex and Gender Information Value Date Recorded Sex Assigned at Not on file Legal Sex Female 5:08 PM CDT Gender Identity Not on file Sexual Orientation Not on file documented as of this encounter Miscellaneous Notes * Cerner Conversion Note - Historical ProviderMD - 04/11/2020 5:18 PM CDT Pain Assessment Entered On: 04/13/2020 0:48 EDT Performed On: 04/12/2020 22:41 EDT by Sally Huang, Rn Intervention Information: acetaminophen-HYDROcodone Performed by Sally Huang Rn on 04/12/2020 21:41:00 EDT acetaminophen-HYDROcodone,1Tab Oral,Pain Pain Assessment Pain Assessment : Follow-up assessment Pain Scale Goal : 4 Sally Huang Rn - 04/13/2020 0:48 EDT Electronically signed by Bogdan Garcia Conversion Enterprise Systems Administrator Cerner at 10/20/2022 2:01 PM CDT documented in this encounter Plan of Treatment Not on file documented as of this encounter Visit Diagnoses Not on filedocumented in this encounter
--- OUTSIDE RECORDS SUMMARY | 2024-12-09 10:42 | XMS_ITS | Encounter Summary ---
Author Organization [employer] Address [address] [place] [id number] Care Team Providers Care Senior Counsel Commercial Name Role Phone Unavailable Primary Care Provider Unavailabl e Encounter Details Date Type Department Care Team (Late st Contact Info) Description 04/11/2020 Transcribed Document [facility] Family Medicine [address] [place] [address] ProviderAbdiel MD [address], [place] [id number] Social History Tobacco Use Types Packs/Day Years Used Date Smoking Tobacco: Never Assessed Comments Unknown Sex and Gender Information Value Date Recorded Sex Assigned at Not on file Legal Sex Female 5:08 PM CDT Gender Identity Not on file Sexual Orientation Not on file documented as of this encounter Miscellaneous Notes * Cerner Conversion Note - Historical ProviderMD - 04/11/2020 6:17 AM CDT Education-Surgery Entered On: 04/11/2020 14:37 EDT Performed On: 04/11/2020 6:17 EDT by CARROLL ROMERO RN Teaching/Learning Assessment Barriers To Learning : None evident CARROLL ROMERO, RN - 04/11/2020 14:37 EDT Education Topics, Periop Preadmission Perioperative Education Grid Arrival Time/Place : Verbalizes understanding CAUTI : Verbalizes understanding Central Lines : Verbalizes understanding CHG Preoperative Bathing/Cloths : Verbalizes understanding Falls : Verbalizes understanding Incentive Spirometry : Verbalizes understanding Infection Control : Verbalizes understanding IV's : Verbalizes understanding NPO Status/Directions : Verbalizes understanding Pain Management : Verbalizes understanding Postoperative Care Preparations : Verbalizes understanding Preprocedure Preparations : Verbalizes understanding Preprocedure Tests/Labs : Verbalizes understanding Remove Body Piercings : Verbalizes understanding Responsible Adult : Verbalizes understanding SNE's : Verbalizes understanding Take/Hold Medications Pre-Procedure : Verbalizes understanding Other : Verbalizes understanding CARROLL ROMERO RN - 04/11/2020 14:37 EDT Education Topics, Day of Surgery DayofSurgery Education Grid Anesthesia/Sedation : Verbalizes understanding CAUTI : Verbalizes understanding Central Lines : Verbalizes understanding CHG Preoperative Bathing/Cloths : Verbalizes understanding Fall Risks : Verbalizes understanding Family Instructions : Verbalizes understanding Incentive Spirometry : Verbalizes understanding Infection Control : Verbalizes understanding Infection Risks : Verbalizes understanding IV's : Verbalizes understanding Medication Instructions : Verbalizes understanding Pain Management : Verbalizes understanding Plan of Care : Verbalizes understanding Respiratory Care : Verbalizes understanding Responsible Adult : Verbalizes understanding SNE's : Verbalizes understanding Tubes/Drains : Verbalizes understanding Other : Verbalizes understanding CARROLL ROMERO RN - 04/11/2020 14:37 EDT Education Topics, Surgery Surgery Education Topics Activity Limitations/Expectations : Verbalizes understanding Advance Directives : Verbalizes understanding Allergies : Verbalizes understanding Equipment/Devices : Verbalizes understanding Follow-up Appointment : Verbalizes understanding Medication : Verbalizes understanding Pain Management : Verbalizes understanding Postprocedure Care : Verbalizes understanding Preoperative Instructions : Verbalizes understanding Safe Surgery Pamphlet : Verbalizes understanding Smoking Cessation : Verbalizes understanding Surgery : Verbalizes understanding Treatments/Procedures/Tests : Verbalizes understanding Turn/Cough/Deep Breathe : Verbalizes understanding Surgery, Other : Verbalizes understanding CARROLL ROMERO RN - 04/11/2020 14:37 EDT Education Topics, Postoperative Ed-Medications Take Home Activity Limitations/Expectations : Verbalizes understanding Community Resources : Verbalizes understanding Diet : Verbalizes understanding Discharge Instructions : Verbalizes understanding Discharge Planning : Verbalizes understanding Emergency and Physician Contact Info : Verbalizes understanding Bathing/Hygiene : Verbalizes understanding Medications Take Home : Verbalizes understanding Pain Management : Verbalizes understanding Plan of Care : Verbalizes understanding Progressive Activity : Verbalizes understanding Respiratory Care : Verbalizes understanding Signs & Symptoms to Report : Verbalizes understanding Tubes/Drains/IV's : Verbalizes understanding Turn/Cough/Deep Breathe : Verbalizes understanding Vital Sign Frequency : Verbalizes understanding Wound/Incision Care : Verbalizes understanding Postoperative, Other : Verbalizes understanding CARROLL ROMERO RN - 04/11/2020 14:37 EDT Education Topics, Intraspinal Intraspinal Education Grid Action/Side Effects of Medication : Verbalizes understanding Insertion Procedure : Verbalizes understanding Line Care : Verbalizes understanding Monitoring/Assessment : Verbalizes understanding Pain Management Strategies : Verbalizes understanding Positioning/Activity : Verbalizes understanding Precautions : Verbalizes understanding Pump : Verbalizes understanding Reason for Catheter : Verbalizes understanding Reportable Symptoms : Verbalizes understanding Transition to Oral Analgesics : Verbalizes understanding Intraspinal, Other : Verbalizes understanding CARROLL ROMERO RN - 04/11/2020 14:37 EDT documented in this encounter Plan of Treatment Not on file documented as of this encounter Visit Diagnoses Not on filedocumented in this encounter
--- OUTSIDE RECORDS SUMMARY | 2024-12-09 10:42 | XMS_ITS | Encounter Summary ---
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 Name Role Phone Unavailable Primary Care Provider Unavailabl e Encounter Details Date Type Department Care Team (Late st Contact Info) Description 04/13/2020 Transcribed Document [facility] [place] [facility] [address] [place] [address] ProviderAbdiel MD [address] [place] [address] Social History Tobacco Use Types Packs/Day Years Used Date Smoking Tobacco: Never Assessed Comments Unknown Sex and Gender Information Value Date Recorded Sex Assigned at Not on file Legal Sex Female 5:08 PM CDT Gender Identity Not on file Sexual Orientation Not on file documented as of this encounter Miscellaneous Notes * Cerner Conversion Note - Abdiel James MD - 04/13/2020 9:40 AM CDT [facility] [place] [address] MICHAELLE LEONARD :1960 Visit Time:04/11/2020 Your Visit Summary Your Care Team Admitting Physician - SERGEY PERKINS MD-CAR Attending Physician - SERGEY PERKINS MD-CAR Primary Care Physician - RUSSELL GARCIA NP-SYLVIA Referring Physician - GEORGE, NOT LISTED Your Diagnosis Paroxysmal atrial fibrillation, Paroxysmal atrial fibrillation Discharge Vitals Temperature 36.3 ??C Heart Rate (Monitored) 51 Respiratory Rate 12 Blood Pressure 142/71 What to do next Instructions From Your Care Team Please STOP taking these home medications: 1. Digoxin 2. Omeprazole -- You will now take Protonix (Pantoprazole) Discharge Activity: Discharge Activity: No strenuous activities Activity: Discharge Activity: No strenuous activities Diet: Discharge Diet: Resume usual diet as tolerated Diet: Discharge Diet: Regular diet as tolerated Wound/Incision Care Instructions: Keep operative site/wound clean and dry Showering/Bathing Instructions: No tub bathing, soaking, or swimming x 3 days Showering/Bathing Instructions: May shower Driving Restriction: Do Not Drive 3 days post procedure. Driving Restriction: No driving until 24 hours after taking pain medication Return to Work or School: May return to work in 1 week. Follow-Up Appointments Follow Up with SERGEY PERKINS When 05/15/2020 11:45 AM EST Comments Appointment has been made Where: [address] [place] [address]- Follow Up with RUSSELL GARCIA NP-FAM When 04/24/2020 10:30 AM EDT Comments Appointment has been made Where: [address] [place] [address]- Medications What How Much When Instructions Next Dose pantoprazole (Protonix 40 mg oral delayed release tablet) 1 Tablet(s) Oral Every Day Printed Prescription ascorbic acid (Vitamin C) 500 Milligram(s) Oral Every Day baclofen (baclofen 20 mg oral tablet) 1 Tablet(s) Oral Three Times A Day as needed for Muscle Spasms cholecalciferol (Vitamin D3) 2,000 Unit(s) Oral Every Day citalopram (CeleXA 10 mg oral tablet) 1 Tablet(s) Oral Every Day furosemide (Lasix 80 mg oral tablet) 1 Tablet(s) Oral Every Day gabapentin (gabapentin 300 mg oral capsule) 1 Capsule(s) Oral Every Day levothyroxine (levothyroxine 125 mcg (0.125 mg) oral tablet) 1 Tablet(s) Oral Every Day multivitamin (Multi Vitamin+) 1 Tablet(s) Oral Every Day pramipexole (pramipexole 1 mg oral tablet) 1 Tablet(s) Oral Three Times A Day topiramate (topiramate 50 mg oral capsule, extended release) 1 Capsule(s) Oral Every Day venlafaxine (Effexor XR 150 mg oral capsule, extended release) 1 Capsule(s) Oral Every Day acetaminophen-hydrocodone (acetaminophen-HYDROcodone 325 mg-7.5 mg oral tablet) 1 Tablet(s) Oral Every 4 Hours as needed for as needed for pain aspirin 81 Milligram(s) Oral Every Day busPIRone (BuSpar) 10 Milligram(s) Oral Two Times A Day ferrous sulfate 325 Milligram(s) Oral Two Times A Day melatonin (Melatonin 1 mg oral tablet) 1 Tablet(s) Oral Once a day (at bedtime) as needed for as needed for insomnia naproxen (naproxen sodium 550 mg oral tablet) 1 Tablet(s) Oral Two Times A Day as needed for for arthritis potassium chloride (potassium chloride 10 mEq oral capsule, extended release) 1 Capsule(s) Oral Two Times A Day rivaroxaban (Xarelto 20 mg oral tablet) 1 Tablet(s) Oral Every Evening zinc sulfate (Zinc) 50 Milligram(s) Oral Every Day Take your medications faithfully. Do NOT skip medication. Do NOT stop taking medications without the direction of a physician. Carry a list of your medications with you at all times, and take this medication list with you to your first follow up visit. Report any side effects. Avoid herbal remedies unless discussed with your physician. As part of your treatment plan, your physician may have prescribed a limited course of a controlled substance. This medication may be given to help people with moderate or severe pain or for other medical conditions, but there are risks involved with treatment. Common side effects may include nausea, constipation, drowsiness, sweating, itching, dry mouth, and rash. More serious side effects may include cognitive and motor impairment, like problems with thinking, concentrating, alertness, and movement (e.g. slowed reflexes), and driving and operating heavy machinery can be dangerous. It is important for you to talk to your physician if you have these side effects or questions. These controlled substances can produce physical dependence and be habit-forming if taken for an extended period of time, which means that the body has gotten used to them and may experience withdrawal symptoms if they are abruptly stopped. Withdrawal symptoms can include runny nose, sweating, goose bumps, diarrhea, abdominal cramping, rapid heartbeat, difficulty sleeping, and nervousness. Please dispose of unused and medications per your retail pharmacy guidance. Allergies Supartz Immunizations This Visit No Immunizations Found Education Materials Electrical Cardioversion Electrical cardioversion is the delivery of a jolt of electricity to restore a normal rhythm to the heart. A rhythm that is too fast or is not regular keeps the heart from pumping well. In this procedure, sticky patches or metal paddles are placed on the chest to deliver electricity to the heart from a device. This procedure may be done in an emergency if: ??? There is low or no blood pressure as a result of the heart rhythm. ??? Normal rhythm must be restored as fast as possible to protect the brain and heart from further damage. ??? It may save a life. This procedure may also be done for irregular or fast heart rhythms that are not immediately life-threatening. Tell a health care provider about: ??? Any allergies you have. ??? All medicines you are taking, including vitamins, herbs, eye drops, creams, and zxji-nbo-iqqfaug medicines. ??? Any problems you or family members have had with anesthetic medicines. ??? Any blood disorders you have. ??? Any surgeries you have had. ??? Any medical conditions you have. ??? Whether you are or may be . What are the risks? Generally, this is a safe procedure. However, problems may occur, including: ??? Allergic reactions to medicines. ??? A blood clot that breaks free and travels to other parts of your body. ??? The possible return of an abnormal heart rhythm within hours or days after the procedure. ??? Your heart stopping (cardiac arrest ). This is rare. What happens before the procedure? Medicines ??? Your health care provider may have you start taking: ? Blood-thinning medicines (anticoagulants) so your blood does not clot as easily. ? Medicines may be given to help stabilize your heart rate and rhythm. ??? Ask your health care provider about changing or stopping your regular medicines. This is especially important if you are taking diabetes medicines or blood thinners. General instructions ??? Plan to have someone take you home from the hospital or clinic. ??? If you will be going home right after the procedure, plan to have someone with you for 24 hours. ??? Follow instructions from your health care provider about eating or drinking restrictions. What happens during the procedure? To lower your risk of infection: ? Your health care team will wash or sanitize their hands. ? Your skin will be washed with soap. ??? An IV tube will be inserted into one of your veins. ??? You will be given a medicine to help you relax (sedative). ??? Sticky patches (electrodes) or metal paddles may be placed on your chest. ??? An electrical shock will be delivered. The procedure may vary among health care providers and hospitals. What happens after the procedure? Your blood pressure, heart rate, breathing rate, and blood oxygen level will be monitored until the medicines you were given have worn off. ??? Do not drive for 24 hours if you were given a sedative. ??? Your heart rhythm will be watched to make sure it does not change. This information is not intended to replace advice given to you by your health care provider. Make sure you discuss any questions you have with your health care provider. Document Released: 06/06/2003 Document Revised: 05/29/2018 Document Reviewed: 12/20/2016 [employer] Patient Education ?? 2020 [employer]. Electrophysiology Study An electrophysiology (EP) study is a heart test in which thin, flexible tubes (catheters) are placed in a large vein in your groin, arm, neck, or chest. This test is done to evaluate the electrical conduction system of your heart. You may need this test if you have: ??? Dizziness or fainting. ??? A fast heartbeat (tachycardia). ??? A slow heartbeat (bradycardia). ??? An irregular heartbeat (arrhythmia), such as atrial fibrillation. Tell a health care provider about: ??? Any allergies you have. ??? All medicines you are taking, including vitamins, herbs, eye drops, creams, and uwtd-aaw-vsvtaue medicines. ??? Any problems you or family members have had with anesthetic medicines. ??? Any blood disorders you have. ??? Any surgeries you have had. ??? Any medical conditions you have. ??? Whether you are or may be . What are the risks? Generally, this is a safe procedure. However, problems may occur, including: ??? Tachycardia that does not go away. ??? Bleeding or bruising around the insertion sites. ??? Infection. ??? Temporary or permanent heart rhythm abnormalities. ??? Temporary changes in blood pressure. ??? Puncture (perforation) of the heart wall or a blood vessel. This can cause bleeding between the heart and the sac that surrounds it (cardiac tamponade). ??? Possible cardiac arrest or fatal heart arrhythmia. ??? Allergic reactions to medicines or dyes. ??? Damage to other structures or organs. What happens before the procedure? Staying hydrated Follow instructions from your health care provider about hydration, which may include: ??? Up to 2 hours before the procedure ??? you may continue to drink clear liquids, such as water, clear fruit juice, black coffee, and plain tea. Eating and drinking restrictions Follow instructions from your health care provider about eating and drinking, which may include: ??? 8 hours before the procedure ??? stop eating heavy meals or foods such as meat, fried foods, or fatty foods. ??? 6 hours before the procedure ??? stop eating light meals or foods, such as toast or cereal. ??? 6 hours before the procedure ??? stop drinking milk or drinks that contain milk. ??? 2 hours before the procedure ??? stop drinking clear liquids. Medicines ??? Ask your health care provider about: ? Changing or stopping your regular medicines. This is especially important if you are taking diabetes medicines or blood thinners. ? Taking medicines such as aspirin and ibuprofen. These medicines can thin your blood. Do not take these medicines before your procedure if your health care provider instructs you not to. ??? You may be given antibiotic medicine to help prevent infection. General instructions ??? Plan to have someone take you home from the hospital or clinic. ??? If you will be going home right after the procedure, plan to have someone with you for 24 hours. ??? Ask your health care provider how your surgical site will be marked or identified. What happens during the procedure? To lower your risk of infection: ? Your health care team will wash or sanitize their hands. ? Your skin will be washed with soap. ? Hair may be removed from the surgical area. ??? An IV tube will be inserted into one of your veins. ??? You will be given one or more of the following: ? A medicine to help you relax (sedative). ? A medicine to numb the area (local anesthetic). ? A medicine to make you fall asleep (general anesthetic). ??? Catheters with an electrode tip will be inserted into a large vein. These electrode tips can measure the heart's electrical activity. They can also use electrical signals to change the heart rhythm. ??? The catheters will be guided to the heart using a type of X-ray machine (fluoroscopy). Once the catheters are in the heart, they will evaluate the electrical activity of your heart. ??? If you are awake during the EP study, you may feel dizzy or light-headed. Your heart rate may temporarily increase or you may feel your heart beating hard. Tell your health care provider if you experience these things during the EP study: ? You feel dizzy or nauseous. ? You have chest pain or pressure. ??? The catheters will be removed. ??? Firm pressure will be applied to the insertion sites to prevent bleeding. ??? A bandage (dressing) may be applied over the insertion sites. The procedure may vary among health care providers and hospitals. What happens after the procedure? Do not drive for 24 hours if you were given a sedative. ??? Your blood pressure, heart rate, breathing rate, and blood oxygen level will be monitored until the medicines you were given have worn off. ??? You will need to lie flat for a few hours or as told by your health care provider. Keep your legs straight. Do not bend or cross your legs. This information is not intended to replace advice given to you by your health care provider. Make sure you discuss any questions you have with your health care provider. Document Released: 12/04/2010 Document Revised: 02/06/2017 Document Reviewed: 12/23/2016 [employer] Patient Education ?? 2020 [employer]. Atrial Fibrillation Atrial fibrillation is a type of heartbeat that is irregular or fast (rapid). If you have this condition, your heart beats without any order. This makes it hard for your heart to pump blood in a normal way. Having this condition gives you more risk for stroke, heart failure, and other heart problems. Atrial fibrillation may start all of a sudden and then stop on its own, or it may become a long-lasting problem. What are the causes? This condition may be caused by heart conditions, such as: ??? High blood pressure. ??? Heart failure. ??? Heart valve disease. ??? Heart surgery. Other causes include: ??? Pneumonia. ??? Obstructive sleep apnea. ??? Lung cancer. ??? Thyroid disease. ??? Drinking too much alcohol. Sometimes the cause is not known. What increases the risk? You are more likely to develop this condition if: ??? You smoke. ??? You are older. ??? You have diabetes. ??? You are overweight. ??? You have a family history of this condition. ??? You exercise often and hard. What are the signs or symptoms? Common symptoms of this condition include: ??? A feeling like your heart is beating very fast. ??? Chest pain. ??? Feeling short of breath. ??? Feeling light-headed or weak. ??? Getting tired easily. Follow these instructions at home: Medicines ??? Take aefh-jmw-vzlfqae and prescription medicines only as told by your doctor. ??? If your doctor gives you a blood-thinning medicine, take it exactly as told. Taking too much of it can cause bleeding. Taking too little of it does not protect you against clots. Clots can cause a stroke. Lifestyle ??? Do not use any tobacco products. These include cigarettes, chewing tobacco, and e-cigarettes. If you need help quitting, ask your doctor. ??? Do not drink alcohol. ??? Do not drink beverages that have caffeine. These include coffee, soda, and tea. ??? Follow diet instructions as told by your doctor. ??? Exercise regularly as told by your doctor. General instructions ??? If you have a condition that causes breathing to stop for a short period of time (apnea), treat it as told by your doctor. ??? Keep a healthy weight. Do not use diet pills unless your doctor says they are safe for you. Diet pills may make heart problems worse. ??? Keep all follow-up visits as told by your doctor. This is important. Contact a doctor if: ??? You notice a change in the speed, rhythm, or strength of your heartbeat. ??? You are taking a blood-thinning medicine and you see more bruising. ??? You get tired more easily when you move or exercise. ??? You have a sudden change in weight. Get help right away if: ??? You have pain in your chest or your belly (abdomen). ??? You have trouble breathing. ??? You have blood in your vomit, poop, or pee (urine). ??? You have any signs of a stroke. BE FAST is an easy way to remember the main warning signs: ? B - Balance. Signs are dizziness, sudden trouble walking, or loss of balance. ? E - Eyes. Signs are trouble seeing or a change in how you see. ? F - Face. Signs are sudden weakness or loss of feeling in the face, or the face or eyelid drooping on one side. ? A - Arms. Signs are weakness or loss of feeling in an arm. This happens suddenly and usually on one side of the body. ? S - Speech. Signs are sudden trouble speaking, slurred speech, or trouble understanding what people say. ? T - Time. Time to call emergency services. Write down what time symptoms started. ??? You have other signs of a stroke, such as: ? A sudden, very bad headache with no known cause. ? Feeling sick to your stomach (nausea). ? Throwing up (vomiting). ? Jerky movements you cannot control (seizure). These symptoms may be an emergency. Do not wait to see if the symptoms will go away. Get medical help right away. Call your local emergency services (911 in the [place] Do not drive yourself to the hospital. Summary ??? Atrial fibrillation is a type of heartbeat that is irregular or fast (rapid). ??? You are at higher risk of this condition if you smoke, are older, have diabetes, or are overweight. ??? Follow your doctor's instructions about medicines, diet, exercise, and follow-up visits. ??? Get help right away if you think that you have signs of a stroke. This information is not intended to replace advice given to you by your health care provider. Make sure you discuss any questions you have with your health care provider. Document Released: 03/25/2009 Document Revised: 08/20/2018 Document Reviewed: 08/07/2018 [employer] Patient Education ?? 2020 [employer] pantoprazole (oral/injection) (owen TOE pra zole) Protonix What is the most important information I should know about pantoprazole? Pantoprazole can cause kidney problems. Tell your doctor if you are urinating less than usual, or if you have blood in your urine. Diarrhea may be a sign of a new infection. Call your doctor if you have diarrhea that is watery or has blood in it. Pantoprazole may cause new or worsening symptoms of lupus. Tell your doctor if you have joint pain and a skin rash on your cheeks or arms that worsens in sunlight. You may be more likely to have a broken bone while taking this medicine [facility] or more than once per day. What is pantoprazole? Pantoprazole is a proton pump inhibitor that decreases the amount of acid produced in the stomach. Pantoprazole is used to treat erosive esophagitis (damage to the esophagus from stomach acid caused by gastroesophageal reflux disease, or GERD) in adults and children who are at least 5 years old. Pantoprazole is usually given for up to 8 weeks at a time while your esophagus heals. Pantoprazole is also used to treat Carlos-Gleason syndrome and other conditions involving excess stomach acid. Pantoprazole is not for immediate relief of heartburn. Pantoprazole may also be used for purposes not listed in this medication guide. What should I discuss with my healthcare provider before using pantoprazole? Heartburn can mimic early symptoms of a heart attack. Get emergency medical help if you have chest pain that spreads to your jaw or shoulder and you feel anxious or light-headed. You should not use this medicine if: ?? you also take medicine that contains rilpivirine (Edurant, Complera, Juluca, Odefsey); or ?? you are allergic to pantoprazole or similar medicines (lansoprazole, omeprazole, Nexium, Prevacid, Prilosec, and others). Tell your doctor if you have ever had: ?? low levels of magnesium in your blood; ?? lupus; or ?? osteoporosis or low bone mineral density. You may be more likely to have a broken bone in your hip, wrist, or spine while taking a proton pump inhibitor long-term or more than once per day. Talk with your doctor about ways to keep your bones healthy. It is not known whether this medicine will harm an unborn baby. Tell your doctor if you are or plan to become . You should not breast-feed while using this medicine. Pantoprazole is not approved for use by anyone younger than 5 years old. How should I use pantoprazole? Follow all directions on your prescription label and read all medication guides or instruction sheets. Use the medicine exactly as directed. Use the lowest dose for the shortest amount of time needed to treat your condition. Pantoprazole is taken by mouth (oral) or given as an infusion into a vein (injection). A healthcare provider may teach you how to properly use pantoprazole injection by yourself. Pantoprazole tablets are taken by mouth, with or without food. Pantoprazole oral granules should be taken 30 minutes before a meal. Do not crush, chew, or break the tablet. Swallow it whole. The oral granules should be mixed with applesauce or apple juice and given either by mouth or through a nasogastric (NG) tube. Read and carefully follow any Instructions for Use provided with your medicine. Ask your doctor or pharmacist if you do not understand these instructions. Use this medicine for the full prescribed length of time, even if your symptoms quickly improve. Call your doctor if your symptoms do not improve or if they get worse while you are using this medicine. This medicine can affect the results of certain medical tests. Tell any doctor who treats you that you are using pantoprazole. Pantoprazole may also affect a drug-screening urine test and you may have false results. Tell the laboratory staff that you use this medicine. Store this medicine at room temperature away from moisture, heat, and light. What happens if I miss a dose? Use the medicine as soon as you can, but skip the missed dose if it is almost time for your next dose. Do not use two doses at one time. What happens if I overdose? Seek emergency medical attention or call the Poison Help line at . What should I avoid while using pantoprazole? This medicine can cause diarrhea, which may be a sign of a new infection. If you have diarrhea that is watery or bloody, call your doctor. Do not use anti-diarrhea medicine unless your doctor tells you to. What are the possible side effects of pantoprazole? Get emergency medical help if you have signs of an allergic reaction: hives; difficulty breathing; swelling of your face, lips, tongue, or throat. Call your doctor at once if you have: ?? severe stomach pain, diarrhea that is watery or bloody; ?? sudden pain or trouble moving your hip, wrist, or back; ?? bruising or swelling where intravenous pantoprazole was injected; ?? kidney problems--urinating less than usual, blood in your urine, swelling, rapid weight gain; ?? low magnesium--dizziness, fast or irregular heart rate, tremors (shaking) or jerking muscle movements, feeling jittery, muscle cramps, muscle spasms in your hands and feet, cough or choking feeling; or ?? new or worsening symptoms of lupus--joint pain, and a skin rash on your cheeks or arms that worsens in sunlight. Taking pantoprazole long-term may cause you to develop stomach growths called fundic gland polyps. Talk with your doctor about this risk. If you use pantoprazole for longer than 3 years, you could develop a vitamin B-12 deficiency. Talk to your doctor about how to manage this condition if you develop it. Common side effects may include: ?? headache, dizziness; ?? stomach pain, gas, nausea, vomiting, diarrhea; ?? joint pain; or ?? fever, rash, or cold symptoms (most common in children). This is not a complete list of side effects and others may occur. Call your doctor for medical advice about side effects. You may report side effects to FDA at 7-997-HQY-2394. What other drugs will affect pantoprazole? Tell your doctor about all your other medicines, especially: ?? digoxin; ?? methotrexate; or ?? a diuretic or 'water pill.' This list is not complete. Other drugs may affect pantoprazole, including prescription and wjtb-pas-jztziec medicines, vitamins, and herbal products. Not all possible drug interactions are listed here. Where can I get more information? Your pharmacist can provide more information about pantoprazole. Remember, keep this and all other medicines out of the reach of children, never share your medicines with others, and use this medication only for the indication prescribed. Every effort has been made to ensure that the information provided by [employer] ('[employer]') is accurate, up-to-date, and complete, but no guarantee is made to that effect. Drug information contained herein may be time sensitive. [employer] information has been compiled for use by healthcare practitioners and consumers in the [place] and therefore [employer] does not warrant that uses outside of the [place] are appropriate, unless specifically indicated otherwise. [employer]'s drug information does not endorse drugs, diagnose patients or recommend therapy. [facility] drug information is an informational resource designed to assist licensed healthcare practitioners in caring for their patients and/or to serve consumers viewing this service as a supplement to, and not a substitute for, the expertise, skill, knowledge and judgment of healthcare practitioners. The absence of a warning for a given drug or drug combination in no way should be construed to indicate that the drug or drug combination is safe, effective or appropriate for any given patient. [facility] does not assume any responsibility for any aspect of healthcare administered with the aid of information [facility] provides. The information contained herein is not intended to cover all possible uses, directions, precautions, warnings, drug interactions, allergic reactions, or adverse effects. If you have questions about the drugs you are taking, check with your doctor, nurse or pharmacist. Copyright 2809-0185 [facility]. Version: 19.02. Revision Date: 12/23/2017. Emergency Awareness and Preventative Care STROKE is an EMERGENCY Every Minute Counts Act FAST and Check for these signs: FACE Does the face look uneven? ARM Does one arm drift down? SPEECH Does their speech sound strange? TIME Call at any sign of stroke Stroke Risk Factors Atrial Fibrillation (irregular heartbeat) Diabetes Family history of stroke Heart Disease Heavy alcohol use High Blood Pressure High Cholesterol Physical inactivity and obesity Smoking Cigarette Smoking The facts are clear, cigarette smoking will shorten your life. Smoking can cause many illnesses along the way. As a healthcare provider, we recommend that you stop smoking. Assistance with quitting is available by contacting 3-809-EFSY-NOW. This is a free resource providing counseling, support, and referral. Or you may contact your personal physician. National Suicide Prevention Lifeline: The National Suicide Prevention Lifeline is a national network of local crisis centers that provides free and confidential emotional support to people in suicidal crisis or emotional distress 24 hours a day, 7 days a week. Don't Wait! Stop a Heart Attack Before it Starts What is a heart attack? A heart attack is damage or to a part of the heart from severely decreased or lack of blood flow to the heart. Over time, arteries can become narrow from the buildup of fat and cholesterol, which is called plaque. The plaque can rupture causing a blood clot to form. When the blood clot forms, the artery can become severely narrowed or completely blocked, causing a heart attack. Heart attack is the leading cause of in the [place]. 85% of muscle damage occurs within the first 2 hours. Delay in the recognition of heart attack symptoms increases the chances of . Know the early symptoms of a heart attack: Nausea Feeling of fullness in chest Jaw Pain Pain that travels down one or both arms Fatigue/being tired Anxiety Back Pain Chest pressure, squeezing, or discomfort Shortness of breath Sweating, or a cold sweat Feeling of impending doom There are unusual signs of a heart attack, too! Women, the elderly, and diabetics may present with atypical symptoms: Fainting/dizziness Weakness Confusion Risk Factors for a Heart Attack Some heart disease risk factors, such as age and family history, cannot be changed. Others, like smoking and lack of exercise, can be changed. Smoking High Cholesterol High Blood Pressure Family History Obesity Age Gender (Males are at higher risk) Lack of Exercise Diabetes Diet Stress Excessive Alcohol Intake If you or someone you know is experiencing the signs and symptoms of a heart attack, DON???T DELAY. Call immediately and seek help. If someone collapses, perform CPR! Do not attempt to drive if you are having symptoms of heart attack. Hands-Only CPR Why Hands-Only CPR? Hands-Only CPR has been shown to be as effective as conventional CPR for cardiac arrests that occur outside of a hospital. Survival depends on immediately receiving CPR from someone nearby. How do you perform Hands-Only CPR? There are two easy steps: Call if you see a teen or adult collapse Push hard and fast in the center of the chest at a beat of 100 beats per minute. Save a life! 4 WAYS TO GET AHEAD OF SEPSIS SEPSIS is a MEDICAL EMERGENCY. Time matters! Infections put you and your family at risk for a life-threatening condition called sepsis. Sepsis is the body's extreme response to an infection. It is life-threatening, and without timely treatment, sepsis can rapidly lead to tissue damage, organ failure, and . Sepsis happens when an infection you already have-in your skin, lungs, urinary tract or somewhere else-triggers a chain reaction throughout your body. 1 PREVENT INFECTIONS Take good care of chronic conditions. Talk to your doctor about getting the recommended vaccines. 2 PRACTICE GOOD HYGIENE Wash your hands frequently. Keep cuts or open sores clean and covered until they are healed. 3 KNOW THE SYMPTOMS Confusion or disorientation Shortness of breath High heart rate Fever, shivering, or feeling very cold Extreme pain or discomfort Clammy or sweaty skin 4 ACT FAST Get medical care IMMEDIATELY if you suspect sepsis or if you have an infection that is not getting better or is getting worse. To learn more about sepsis and how to prevent infections, visit www.cdc.gov/sepsis. Test Results Laboratory or Other Results This Visit (last charted value for your 04/11/2020 visit) Hematology 04/12/2020 2:28 PM WBC: 10.6 K/uL -- Normal range between ( 4.5 and 10.5 ) RBC: 3.93 Million/uL -- Normal range between ( 3.93 and 5.22 ) Hct: 39.4 % -- Normal range between ( 34.1 and 44.9 ) Hgb: 12.4 g/dL -- Normal range between ( 11.2 and 15.7 ) Platelet Count: 263 K/uL -- Normal range between ( 163 and 369 ) MCH: 31.6 pg -- Normal range between ( 25.6 and 32.2 ) MCHC: 31.5 Gram/dL -- Normal range between ( 32.2 and 36.5 ) MCV: 100.3 fL -- Normal range between ( 79.0 and 94.8 ) ALYC #: 2 K/uL RBC Morphology: Abnormal RDW: 12.8 % -- Normal range between ( 11.7 and 14.9 ) ANC #: 8 K/uL [place] Percent Man: 3 % -- Normal range between ( 4 and 5 ) Ovalocytes: 1+ Baso Percent Man: 1 % -- Normal range between ( 0 and 1 ) Neutrophil Percent Man: 76 % -- Normal range between ( 50 and 65 ) Eos Percent Man: 2 % -- Normal range between ( 0 and 3 ) Platelet Ct Estimate: Adequate MPV: 11.2 fL -- Normal range between ( 9.4 and 12.4 ) Lymph Percent Man: 18 % -- Normal range between ( 24 and 44 ) Giant Platelet: rare 04/12/2020 6:07 AM Slide Review: No Eos %: 1.1 % -- Normal range between ( 0.0 and 7.0 ) [place] #: 0.60 K/uL -- Normal range between ( 0.16 and 1.00 ) Eos #: 0.12 x10(3)/uL -- Normal range between ( 0.00 and 0.80 ) [place] %: 5.3 % -- Normal range between ( 3.0 and 9.0 ) Baso %: 0.4 % -- Normal range between ( 0.0 and 1.5 ) Baso #: 0.04 x10(3)/uL -- Normal range between ( 0.00 and 0.20 ) Neut %: 81.3 % -- Normal range between ( 34.0 and 71.0 ) Neut #: 9.13 K/uL -- Normal range between ( 1.56 and 6.13 ) Lymph %: 11.3 % -- Normal range between ( 19.3 and 53.1 ) Lymph #: 1.27 x10(3)/uL -- Normal range between ( 1.00 and 3.90 ) IG#: 0.07 x10(3)/uL -- Normal range between ( 0.00 and 0.05 ) IG%: 0.60 % -- Normal range between ( 0.00 and 0.60 ) General Chemistry 04/12/2020 5:30 PM Glucose POC2: 103 mg/dL -- Normal range between ( 70 and 110 ) Device Comment 1: Device Comment 1 04/12/2020 6:07 AM Creatinine Level: 1.20 mg/dL -- Normal range between ( 0.55 and 1.02 ) Sodium Level: 139 mmol/L -- Normal range between ( 136 and 146 ) Potassium Level: 3.5 mmol/L -- Normal range between ( 3.5 and 5.1 ) Chloride Level: 103 mmol/L -- Normal range between ( 102 and 112 ) Carbon Dioxide Level: 32 mmol/L -- Normal range between ( 21 and 32 ) Anion Gap: 8 -- Normal range between ( 9 and 20 ) Bun/Creatinine: 16.7 -- Normal range between ( 8.0 and 20.0 ) Calcium Level: 9.1 mg/dL -- Normal range between ( 8.4 and 10.1 ) eGFR : 56 mL/min/1.73m2 eGFR NonAfrican: 46 mL/min/1.73m2 Glucose Level: 131 mg/dL -- Normal range between ( 74 and 106 ) Magnesium Level: 2.3 mg/dL -- Normal range between ( 1.5 and 2.4 ) Blood Urea Nitrogen: 20 mg/dL -- Normal range between ( 7 and 22 ) Coagulation 04/11/2020 11:44 AM ACT POC: 153 Second(s) -- Normal range between ( 74 and 137 ) Therapeutic Drugs 04/11/2020 6:18 AM Digoxin Level: 1.0 ng/mL -- Normal range between ( 0.8 and 2.0 ) Computed Tomography 04/12/2020 3:[address] Head WO: CT Head WO Echo 04/12/2020 9:51 AM EC 2D Echo LTD / Follow Up: EC 2D Echo LTD / Follow Up Patient Name:MICHAELLE LEONARD I have received and understand this information and was given the opportunity to ask questions. Patient/Deliverer Pharmacy Name: Patient/Deliverer Pharmacy Signature: Relationship to Patient: Clinician/Hospital Deliverer Pharmacy Signature: Date: documented in this encounter Plan of Treatment Not on file documented as of this encounter Visit Diagnoses Not on filedocumented in this encounter
--- OUTSIDE RECORDS SUMMARY | 2024-12-09 10:42 | XMS_ITS | Encounter Summary ---
Author Organization [employer] Address [address] [place] [address] Care Team Providers Care Pipe Fitter Supervisor Maintenance Name Role Phone Unavailable Primary Care Provider Unavailabl e Encounter Details Date Type Department Care Team (Late st Contact Info) Description 04/13/2020 Transcribed Document [facility] [place] [address] [place] [address] ProviderAbdiel MD [address] [place], [place] [id number] Social History Tobacco Use Types Packs/Day Years Used Date Smoking Tobacco: Never Assessed Comments Unknown Sex and Gender Information Value Date Recorded Sex Assigned at Not on file Legal Sex Female 5:08 PM CDT Gender Identity Not on file Sexual Orientation Not on file documented as of this encounter Miscellaneous Notes * Cerner Conversion Note - Abdiel James MD - 04/13/2020 9:39 AM CDT Patient Education Materials Follows:Medicine Electrical Cardioversion Electrical cardioversion is the delivery [...] including vitamins, herbs, eye drops, creams, and qzxm-kas-oqqvucl medicines. ??? Any problems you or family [...] the procedure. ??? Your heart stopping (cardiac arrest?). This is rare. What happens before the [...] 06/06/2003 Document Revised: 05/29/2018 Document Reviewed: 12/20/2016 [employer] Patient Education ? 2020 [employer] Atrial Fibrillation Atrial fibrillation is a type [...] these instructions at home: Medicines ??? Take mpmc-vsg-mfiunbv and prescription medicines only as told by [...] 03/25/2009 Document Revised: 08/20/2018 Document Reviewed: 08/07/2018 [employer] Patient Education ? 2020 [employer]. Radiology Electrophysiology Study An electrophysiology (EP) study is [...] including vitamins, herbs, eye drops, creams, and rbqk-jfh-duijspm medicines. ??? Any problems you or family [...] Up to 2 hours before the procedure ? you may continue to drink clear liquids, such as water, clear fruit juice, black coffee, and plain tea. Eating and drinking restrictions Follow instructions from your health care provider about eating and drinking, which may include: ??? 8 hours before the procedure ? stop eating heavy meals or foods such as meat, fried foods, or fatty foods. ??? 6 hours before the procedure ? stop eating light meals or foods, such as toast or cereal. ??? 6 hours before the procedure ? stop drinking milk or drinks that contain milk. ??? 2 hours before the procedure ? stop drinking clear liquids. Medicines ??? Ask [...] 12/04/2010 Document Revised: 02/06/2017 Document Reviewed: 12/23/2016 [employer] Patient Education ? 2020 [employer]. documented in this encounter Plan of Treatment Not on file documented as of this encounter Visit Diagnoses Not on filedocumented in this encounter
--- OUTSIDE RECORDS SUMMARY | 2024-12-09 10:42 | XMS_ITS | Encounter Summary ---
Author Organization [employer] Address [address] [place] [address] Care Team Providers Care Diamond Driller Name Role Phone Unavailable Primary Care Provider Unavailabl e Encounter Details Date Type Department Care Team (Late st Contact Info) Description 04/13/2020 Transcribed Document [facility] [place] Family Medicine [address] [place] [address] ProviderAbdiel MD [address], [place] [id number] Social History Tobacco Use Types Packs/Day Years Used Date Smoking Tobacco: Never Assessed Comments Unknown Sex and Gender Information Value Date Recorded Sex Assigned at Not on file Legal Sex Female 5:08 PM CDT Gender Identity Not on file Sexual Orientation Not on file documented as of this encounter Miscellaneous Notes * Cerner Conversion Note - Abdiel ProviderMD - 04/13/2020 8:44 AM CDT Patient: MICHAELLE LEONARD Age: 59 years Sex: Female : 1960 Associated Diagnoses: None Author: SERGEY JEAN-BAPTISTE MD-CAR Allergies (1) Active Reaction Supartz None Documented [facility] EP Discharge Summary: Primary Financial Services Representative: Dr. Hernandez PCP: Saundra Angel Consults: Dr. Jean-Baptiste- EP Addendum: Patient was to be discharged home yesterday 04/12/2020. She received a phone call prior to discharge that her uncle had . She had also received several Rx in the am which she divides dose from am and pm. The patient became confused. Discharge was postponed. CT obtained which was negative. The patient's cognitive status improved over night back to baseline and it was felt this am she could be discharged home. The patient also verbalized her wishes to go home. No changes in discharge plan. History of Present Illness: Patient is a [...] monitor study about three months ago at [facility] when she was diagnosed with PAF. She [...] Labs (Last four charted values) WBC H 10.6 (APR 12) H 11.2 (APR 12) 8.2 (APR 11) HB 12.4 (APR 12) 11.5 (APR 12) 12.8 (APR 11) HCT 39.4 (APR 12) 36.7 (MAR 14) 40.3 (APR 11) Plt 263 (MAR 14) 249 (MAR 14) 244 (MAR 13) Na 139 (MAR 14) 139 (MAR 13) K 3.5 (MAR 14) 3.5 (MAR 13) Cl 103 (MAR 14) 107 (MAR 13) CO2 32 (MAR 14) 27 (MAR 13) BUN 20 (MAR 14) 22 (MAR 13) Cr H 1.20 (MAR 14) H 1.10 (APR 11) Glu R H 131 (MAR 14) 104 (APR 11) Ca 9.1 (APR 12) [...] addressed. Followup Appointments: PCP as scheduled Primary Financial Services Representative as scheduled EP in 1 month Patient has been instructed on and verbalized an understanding of the above discharge instructions. Plan has been discussed and is in agreement with Dr. Jean-Baptiste documented in this encounter Plan of Treatment Not on file documented as of this encounter Visit Diagnoses Not on filedocumented in this encounter
--- OUTSIDE RECORDS SUMMARY | 2024-12-09 10:42 | XMS_ITS | Encounter Summary ---
Author Organization [employer] Address [address] [place] [address] Care Team Providers Care Bailer Tenders Supervisor Name Role Phone Unavailable Primary Care Provider Unavailabl e Encounter Details Date Type Department Care Team (Late st Contact Info) Description 04/11/2020 Transcribed Document [facility] [place] [address] [place] [address] ProviderAbdiel MD [address], [place] [id number] Social History Tobacco Use Types Packs/Day Years Used Date Smoking Tobacco: Never Assessed Comments Unknown Sex and Gender Information Value Date Recorded Sex Assigned at Not on file Legal Sex Female 5:08 PM CDT Gender Identity Not on file Sexual Orientation Not on file documented as of this encounter Miscellaneous Notes * Cerner Conversion Note - Abdiel ProviderMD - 04/11/2020 8:00 AM CDT [facility] Main OR PACU Summary Primary Physician: SERGEY PERKINS MD-CAR Finalized Date/Time: 04/11/20 14:25:18 Pt. Name: MICHAELLE LEONARD/Sex: 1960 Female Med Rec #: [id number] Physician: SERGEY PERKINS MD-CAR Financial #: [id number] Pt. Type: O Room/Bed: [facility]/1 Admit/Disch: 04/11/20 05:59:00 - Institution: [facility] Main OR PACU I Case Times Entry 1 In PACU I 04/11/20 12:33:00 Ready for PACU 04/11/20 13:30:00 Discharge Discharge from PACU 04/11/20 14:15:00 I Last Modified By: GINNY COOL 04/11/20 14:25:11 Finalized By: GINNY COOL Document Signatures Signed By: GINNY COOL 04/11/20 14:25 documented in this encounter Plan of Treatment Not on file documented as of this encounter Visit Diagnoses Not on filedocumented in this encounter
--- OUTSIDE RECORDS SUMMARY | 2024-12-09 10:42 | XMS_ITS | Encounter Summary ---
Author Organization [employer] Address [address] [place] [address] Care Team Providers Care Plumbing And Heating Contractor Name Role Phone Unavailable Primary Care Provider Unavailabl e Encounter Details Date Type Department Care Team (Late st Contact Info) Description 04/13/2020 Transcribed Document [facility] [place] [address] [place] [address] ProviderAbdiel MD [address] [place], [place] [id number] Social History Tobacco Use Types Packs/Day Years Used Date Smoking Tobacco: Never Assessed Comments Unknown Sex and Gender Information Value Date Recorded Sex Assigned at Not on file Legal Sex Female 5:08 PM CDT Gender Identity Not on file Sexual Orientation Not on file documented as of this encounter Miscellaneous Notes * Cerner Conversion Note - Historical ProviderMD - 04/13/2020 11:34 AM CDT Nursing Discharge Summary Entered On: 04/13/2020 11:34 EDT Performed On: 04/13/2020 11:34 EDT by CARROLL ROEMRO, bakery demonstrator Documentation Discharge Date/Time : 04/13/2020 11:30 EDT Patient Disposition, General : Discharge Discharge To : Home with ambulatory/outpatient follow-up Education Comment : CARROLL Garnett, RN - 04/13/2020 11:34 EDT Electronically signed by Bogdan Garcia Conversion Central Office Operator Supervisor Cerner at 10/15/2022 5:12 PM CDT documented in this encounter Plan of Treatment Not on file documented as of this encounter Visit Diagnoses Not on filedocumented in this encounter
--- OUTSIDE RECORDS SUMMARY | 2024-12-09 10:42 | XMS_ITS | Encounter Summary ---
Author Organization Healthcare Address [address] [place] [address] Care Team Providers Care Wrestling Coach Name Role Phone Ulises Judd MD Primary Care Provider [phone] Reason for Visit * Reason Comments Med Refill Encounter Details Date Type Department Care Team (Late st Contact Info) Description 05/20/2024 Refill [place] [facility] [address] [place] [address] Trino Trevizo MD [address] [place] [address] Status post cervical spinal fusion [...] drink first t inna in the morning (EYE-IT BUSINESS SYSTEMS ANALYST) to steady your nerves or to get [...] Telephone Encounter - Brittni Sultana PA - 05/20/2024 4:27 PM EST A message was sent to patient in November 2023 stating we can no longer prescribe Lyrica. Her surgery was with Dr. Trevizo in July 2022. She will need to follow up with PCP for refills. Please let patient know. If she has questions or concerns, please let me know. documented in this encounter Plan of Treatment Upcoming Encounters Date Type Department Care Team (Late st Contact Info) Description 01/03/2025 3:30 PM EDT Office Visit [place] [facility] [address] [place] [address] Trino Trevizo MD [address] [place] [address] documented as of this encounter Visit Diagnoses Diagnosis Status post cervical spinal fusion Arthrodesis status documented in this encounter Additional Health Concerns Assessment Noted Time A fall risk assessment has been complete d for the patient 05/18/2024 11:34 AM EST A Body Mass Index follow-up plan has been documented for the patient 05/18/2024 12:20 PM EST documented as of this encounter Care Teams Wrestling Coach Relationship Specialty Start Date End Date Ulises Judd MD [address] [facility] [place] [address] PCP - General 07/27/21 documented as of this encounter
--- OUTSIDE RECORDS SUMMARY | 2024-12-09 10:42 | XMS_ITS | Encounter Summary ---
Author Organization Healthcare Address [address] [place] [address] Care Team Providers Care Monument Setter Name Role Phone Ulises Judd MD Primary Care Provider [phone] Encounter Details Date Type Department Care Team (Latest Contact Info) Description 10/25/2024 Travel Social History Tobacco Use Types Packs/Day Years [...] drink first t inna in the morning (EYE-MAINTENANCE WORKER MUNICIPAL) to steady your nerves or to get [...] Description 01/03/2025 3:30 PM EDT Office Visit [place] [facility] [address] [place] [address] Trino Trevizo MD [address] [facility] [address] [place] [address] documented as of this encounter Visit Diagnoses Not on filedocumented in this encounter Additional Health Concerns Assessment Noted Time A fall risk assessment has been complete d for the patient 10/25/2024 2:41 PM EDT A Body Mass Index follow-up plan has been documented for the patient 10/25/2024 6:15 PM EDT documented as of this encounter Care Teams Monument Setter Relationship Specialty Start Date End Date Ulises Judd MD [address] [facility] [place] [address] PCP - General 07/27/21 documented as of this encounter
--- NOTE | 2024-12-09 10:47 | EXP.PAIN.SOA ---
[facility] Disclaimer: The information contained in this section may have been updated after the patient was seen, as this information can be updated by other users. 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 Epistaxis not due to trauma URI (upper respiratory infection) Epistaxis Right ankle pain Right foot pain Low back pain Drug overdose Renal insufficiency Accidental drug ingestion Morbid obesity Abnormal stress test Abnormal electrocardiography Dyspnea Surgical History Hx of cholecystectomy H/O spinal fusion H/O shoulder surgery H/O knee surgery H/O: hysterectomy Family History Other No significant family history Social History Smoking Status: Light tobacco smoker second hand exposure: No alcohol intake: never substance use type: denies use current occupational status: other Travel in the last 8 weeks?: None household members: spouse housing: house current occupational exposures/hazards: No caffeine: Yes Have you lived/traveled outside US in past 30 days?: No Contact w/someone who lives/traveled outside US past 30 days?: No Exposure to someone with infectious disease in past 14 days?: No Do you have a fever (greater than 100.4 F or 38 C)?: No Have you tested positive for COVID-19?: No Exposed to someone with COVID-19 in past 14 days?: No Do you have a sore throat?: No Do you have a cough?: No Do you have any weakness?: No Do you have any diarrhea?: No Are you experiencing any unusual bleeding?: No Do you have any muscle aches/pain?: No Do you have any abdominal pain?: No Are you experiencing loss of taste or smell?: No PM Subjective & Objective Subjective Subjective:: Patient is a pleasant 64-year-old female who presents today for Medication refill and follow-up. She rates her pain today an 8 out of 10. Patient does state that she still has the chronic neck and low back pain. Patient is currently managed with Eagle Point 10 mg 3 times a day and baclofen 10 mg 3 times a day and pregabalin from an outside provider. She denies any side effects. Patient is also continued to use her medical marijuana to help with her daily aches and pains. She does state that she is going to see the surgeon on January 03 for the possibility of evaluation of additional surgery. Her Tavo has been reviewed and is appropriate. Review of Systems: General: No recent weight changes, no fever, no sleep disturbances Respiratory: No cough, no shortness of air, no recurring pulmonary infections Cardiovascular/peripheral vascular: No chest pain, no palpitations, no edema, no shortness of breath Gastrointestinal: No new onset incontinence, normal bowel movements reported Genitourinary: No new onset incontinence Musculoskeletal: Neck pain, low back pain Psychiatric: [Normal mood/affect] Neurological: [Denies weakness in extremities], [denies balance issues] Pain at rest (0-10 scale): 8 Objective Objective:: Physical Exam: General: Alert and oriented x3, no acute distress, pleasant and cooperative Lungs: Respirations even and unlabored, symmetrical chest expansion Eyes: PERRL Musculoskeletal: Flexion and extension of cervical [spine] somewhat guarded secondary to pain, [antalgic gait noted] Neurological: Speech clear, no gross sensory deficit Has patient had previous pain injection?: No Conservative treatment options previously tried: Prescription medications Length of treatment: Longer than 12 weeks Meds Home Medications and Allergies Home Medications ?Medication ?Instructions ?Recorded ?Confirmed ?Type pantoprazole 40 mg tablet,delayed 40 mg PO DAILY 05/28/20 12/07/24 History release potassium chloride 10 mEq 10 meq PO BID 05/17/21 12/07/24 History capsule,extended release nitroglycerin 0.4 mg sublingual 0.4 mg sublingual Q5-15M PRN chest 04/29/23 12/07/24 Rx tablet pain #30 tabs cyanocobalamin (vitamin B-12) 500 500 mcg PO WEEKLY 06/11/23 12/07/24 History mcg tablet bumetanide 1 mg tablet 1 mg PO BID 12/30/23 12/07/24 History levothyroxine 150 mcg capsule 150 mcg PO DAILY #30 caps 06/14/24 12/07/24 Rx cefdinir 300 mg capsule 300 mg PO BID #20 caps 07/01/24 12/07/24 Rx methocarbamol 750 mg tablet 750 mg PO Q6H PRN muscle spasm #20 09/24/24 12/07/24 Rx tabs baclofen 10 mg tablet 10 mg PO TID #90 tabs 11/11/24 12/07/24 Rx hydrocodone 10 mg-acetaminophen 1 tab PO TID PRN Pain (Scale Score 11/11/24 12/07/24 Rx 325 mg tablet 4-6) #90 tabs benzonatate 100 mg capsule 100 mg PO TIDP PRN Cough 12/07/24 History metoprolol succinate 25 mg 25 mg PO DAILY 12/07/24 History tablet,extended release 24 hr pramipexole 1 mg tablet 1 mg PO TID 12/07/24 12/07/24 History rivaroxaban 20 mg tablet 20 mg PO DAILY 12/07/24 12/07/24 History venlafaxine 150 mg tablet,extended 150 mg PO DAILY PRN 12/07/24 History release 24 hr New Prescriptions to Start Prescriptions: Allergies Allergy/AdvReac Type Severity Reaction Status Date / Time gabapentin Allergy Verified 12/07/24 08:41 hyaluronic acid (From AdvReac Severe Verified 12/07/24 08:41 Supartz) Assessment and Plan *Assessment and plan (1) Degenerative joint disease (DJD) of lumbar spine: Status: Chronic Qualifiers: Spinal osteoarthritis complication: with radiculopathy Qualified Code(s): M47.26 - Other spondylosis with radiculopathy, lumbar region Category: Medical Code(s): M47.816 - Spondylosis without myelopathy or radiculopathy, lumbar region (2) Degenerative disc disease, cervical: Status: Acute Category: Medical Code(s): M50.30 - Other cervical disc degeneration, unspecified cervical region Plan I will refill the patient's Eagle Point and baclofen and provide a 1 month supply of this medication. Patient will return to clinic in 1 month for reevaluation of symptoms and plan of care. Risks and benefits of the medication have been explained in detail to the patient. The patient does understand the risk of dependence on the medication when given over a prolonged period. Patient has been advised of risks of oversedation with the prescribed medication. Narcan has been offered to the paitent in the event of oversedation. Patient has been advised that a family member should also be educated regarding administration of Narcan. The patient has been advised to consult with his/her primary care provider and pharmacist regarding drug-drug interaction of medications currently prescribed. Patient has been prescribed a controlled substance after being counseled on the medication, medication safety, and possible side effects. Opioid contract was reviewed and signed by the patient, and that they have agreed to all of the terms set forth by our compliance program. A UDS is needed to verify patient's compliance with our office pain contract. This is ordered based off specific treatments related to chronic pain with the potential to abuse certain medications. Patient has been instructed to contact the clinic with any concerns before the next appointment. Dr. Barnett has reviewed this note and agrees with this plan of care. This note was dictated using voice recognition software and make contain errors or omissions.
[2024-12-09 10:52] VITALS: BP 121/63; PULSE 60; RESP 12; O2SAT 100; BMI 38.7
--- OUTSIDE RECORDS SUMMARY | 2024-12-09 11:41 | XMS_ITS | CCD ---
Author Organization Unknown Care Team Providers Care Pipe Out Worker Name Role Phone Non Engaged, [facility] Primary Care Provider Unav ailable Unavailable Chronic Care Management Unavaila ble Summary Purpose DataExchange Insurance Providers Payer name Policy type / Coverage type Covered republican ID Effective Begin Date Effective End Date [facility] [id number] Unknown Unknown Family History Family History data not found Medication Administered No Medication Administered data Reason For Visit No Reason For Visit data Medical Equipment No Medical Equipment data Advance Directives No Advance Directive data
--- OUTSIDE RECORDS SUMMARY | 2024-12-09 11:41 | XMS_ITS | CCD ---
Author Organization Unknown Care Team Providers Care Rolling Mill Operator Helper Name Role Phone Non Engaged, [facility] Primary Care Provider Unav ailable Unavailable Chronic Care Management Unavaila ble Summary Purpose DataExchange Insurance Providers Payer name Policy type / Coverage type Covered constitution party ID Effective Begin Date Effective End Date [facility] [id number] Unknown Unknown Family History Family History data not found Medication Administered No Medication Administered data Reason For Visit No Reason For Visit data Medical Equipment No Medical Equipment data Advance Directives No Advance Directive data
== END 2024-12-09 23:59 | disposition home or self-care (01) ==
PROVIDERS: PCP Family Medicine; Visit Provider Nurse Practitioner Family
DX: M47.26 Other spondylosis with radiculopathy, lumbar region (principal); M50.30 Other cervical disc degeneration, unspecified cervical region; Z79.891 Long term (current) use of opiate analgesic; Z79.899 Other long term (current) drug therapy
CPT/HCPCS: 99212; G0463

== ENCOUNTER 2025-01-10 09:17 | Outpatient (POV) | payer MEDICARE, SELFPAY ==
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
--- OUTSIDE RECORDS SUMMARY | 2025-01-10 09:27 | XMS_ITS | Encounter Summary ---
Author Organization [employer] ([place], [place], [place], [place]) Address [address] [place] [address] Care Team Providers Care Parachute/Combatant Diver Officer Name Role Phone Unavailable Primary Care Provider Unavailabl e Encounter Details Date Type Department Care Team (Late st Contact Info) Description 04/11/2020 Transcribed Document [facility] [place] [address] [place] [address] ProviderAbdiel MD [address] [place] [address] Social History Tobacco Use Types Packs/Day Years [...] : marky Emergency Contact #1 Relationship : [phone] Emergency Contact #2 : none Emergency Contact #2 Phone Number : none Emergency Contact #2 Relationship : n one Primary Language : [place] Islander Communication Barrier : None Motor Vehicles Inspector Needed : No CARROLL ROMERO RN - [...] Scale Risk Level : 25-45 Medium Risk [place] Fall Interventions : Adequate lighting, Assistive devices [...] Source : Measured Height Entry Format : [place] Height, Feet : 5 ft(Converted to: 152 cm, 60 Inch) Height, Inches : 7 Inch(Converted to: 0 ft 7 Inch, 17.78 cm) Clinical Height : 170.18 cm Weight Source : Standing scale Weight Entry Format : [place] Clinical Dosing Weight : 116.82 kg Weight, Pounds : 257 lb Body Surface Area (BSA) : 2.25 m2 Body Mass Index : 40.3 kg/m2 (>HHI) [place] Body Weight : 61 kg CARROLL ROMERO [...] CARROLL ROMERO RN - 04/11/2020 14:38 EDT [place] Suicide Severity Rating Scale (C-SSRS) CSSRS Past [...] - 04/11/2020 14:38 EDT Electronically signed by [facility], [facility] Conversion Roof Bolting Coal Miner Cerner at 10/15/2022 5:26 PM CDT documented in this encounter Plan of Treatment Not on file documented as of this encounter Visit Diagnoses Not on filedocumented in this encounter
--- OUTSIDE RECORDS SUMMARY | 2025-01-10 09:27 | XMS_ITS | Encounter Summary ---
Author Organization [employer] ([place], [place], [place], [place]) Address [address] [place] [address] Care Team Providers Care Clay Puddler Name Role Phone Unavailable Primary Care Provider Unavailabl e Encounter Details Date Type Department Care Team (Late st Contact Info) Description 04/12/2020 Transcribed Document [facility] [place] [address] [place] [address] ProviderAbdiel MD [address] [place] [address] Social History Tobacco Use Types Packs/Day Years [...]
--- OUTSIDE RECORDS SUMMARY | 2025-01-10 09:27 | XMS_ITS | Encounter Summary ---
Author Organization [facility] Address [address] [place] [address] Care Team Providers Care Bronzer Name Role Phone Ulises Judd MD Primary Care Provider Reason for Visit * Reason Comments Med Refill Encounter Details Date Type Department Care Team (Late st Contact Info) Description 02/28/2023 Refill [place] [facility] [address], [address]st [place] [address] Trino Trevizo MD [address] [place] [address] Cervical myelopathy with cervical radiculopathy [...] drink first t inna in the morning (EYE-SERVICE LOSS CONTROL CONSULTANT) to steady your nerves or to get [...] Description 03/21/2025 4:00 PM EDT Office Visit [place] [facility] [address], [address]st [place] [address] Trino Trevizo MD [address] [facility] [address] [place] [address] documented as of this encounter [...] documented as of this encounter Care Teams Bronzer Relationship Specialty Start Date End Date Ulises Judd MD [address] [place] [address] PCP - General 07/27/21 documented as of this encounter
--- OUTSIDE RECORDS SUMMARY | 2025-01-10 09:27 | XMS_ITS | Encounter Summary ---
Author Organization [facility] Address [address] [place] [address] Care Team Providers Care Brass Wind Instrument Maker Name Role Phone Ulises Judd MD Primary Care Provider [phone] Reason for Visit * Reason Comments Med Refill Encounter Details Date Type Department Care Team (Late st Contact Info) Description 12/23/2023 Refill [place] [facility] [address], [address]st [place] [address] Trino Trevizo MD [address] [place] [address] Status post cervical spinal fusion; [...] drink first t inna in the morning (EYE-SKIDDER DRIVER) to steady your nerves or to get [...] Description 03/21/2025 4:00 PM EDT Office Visit [facility] [address], [address] [place] [address] Trino Trevizo MD [address] [facility] [address] [place] [address] documented as of this encounter Visit Diagnoses [...] documented as of this encounter Care Teams Brass Wind Instrument Maker Relationship Specialty Start Date End Date Ulises Judd MD [address] [facility] [place] [address] PCP - General 07/27/21 documented as of this encounter
--- OUTSIDE RECORDS SUMMARY | 2025-01-10 09:27 | XMS_ITS | Encounter Summary ---
Author Organization [facility] Address [address] [place] [address] Care Team Providers Care Sustainable Products Marketing Manager Name Role Phone Ulises Judd MD Primary Care Provider [phone] Encounter Details Date Type Department Care Team ([facility] st Contact Info) Description 11/05/2024 Orders Only External Location [address] [place] [address] Provider, External Social History Tobacco Use Types Packs/Day Years [...] drink first t inna in the morning (EYE-COUNSELING DIRECTOR) to steady your nerves or to [...] Description 03/21/2025 4:00 PM EDT Office Visit [place] [facility] [address], [address]st [place] [address] Trino Trevizo MD [address] [facility] [address] [place] [address] documented as of this encounter Procedures Procedure Name Priority Date/Time Associated Diagnosis Comments CT NEURO OUTSIDE IMAGES 11/05/2024 3:10 PM EDT documented in this encounter Results * CT NEURO OUTSIDE IMAGES (11/05/2024 3:10 PM EDT) Anatomical Region Laterality Modality Computed Tomogra phy 11/05/2024 3:10 PM EDT us External Provider IMG CT PROCEDURES Final Result documented in this encounter Visit Diagnoses Not on filedocumented in this encounter Additional Health Concerns Assessment Noted Time A fall risk assessment has been complete d for the patient 10/25/2024 2:41 PM EDT A Body Mass Index follow-up plan has been documented for the patient 10/25/2024 6:15 PM EDT documented as of this encounter Care Teams Sustainable Products Marketing Manager Relationship Specialty Start Date End Date Ulises Jdud MD [address] [facility] [place], [place] [address] PCP - General 07/27/21 documented as of this encounter
--- OUTSIDE RECORDS SUMMARY | 2025-01-10 09:27 | XMS_ITS | Encounter Summary ---
Author Organization [employer] ([place], [place], [place], [place]) Address [address] [place] [address] Care Team Providers Care Metal Buffer Name Role Phone Unavailable Primary Care Provider Unavailabl e Encounter Details Date Type Department Care Team (Late st Contact Info) Description 04/12/2020 Transcribed Document [facility] [place] Family Medicine [address] [place] [address] ProviderAbdiel MD [address] [place] [address] Social History Tobacco Use Types Packs/Day Years [...]
--- OUTSIDE RECORDS SUMMARY | 2025-01-10 09:27 | XMS_ITS | Encounter Summary ---
Author Organization [facility] Address [address] [place] [address] Care Team Providers Care Gantry Crane Operator Name Role Phone Ulises Judd MD Primary Care Provider [phone] Reason for Visit * Reason Comments Med Refill Encounter Details Date Type Department Care Team (Late st Contact Info) Description 10/23/2023 Refill [place] [facility] [address], [address]st [place] [address] Trino Trevizo MD [address] [place] [address] Status post cervical spinal fusion; [...] drink first t inna in the morning (EYE-CHEMICAL HANDLER) to steady your nerves or to get [...] Description 03/21/2025 4:00 PM EDT Office Visit [facility] [address], [address]st [place] [address] Trino Trevizo MD [address] [facility] [address] [place] [address] documented as of this encounter Visit Diagnoses [...] documented as of this encounter Care Teams Gantry Crane Operator Relationship Specialty Start Date End Date Ulises Judd MD [address] [facility] [place] [address] PCP - General 07/27/21 documented as of this encounter
--- OUTSIDE RECORDS SUMMARY | 2025-01-10 09:27 | XMS_ITS | Referral Summary ---
Author Organization [employer] ([place], [place], [place]) Address [address] [place] [address] Care Team Providers Care Professor Of Psychiatry Name Role Phone Unavailable Primary Care Provider [...]
--- OUTSIDE RECORDS SUMMARY | 2025-01-10 09:27 | XMS_ITS | Encounter Summary ---
Author Organization [employer] ([place], [place], [place], [place]) Address [address] [place] [address] Care Team Providers Care External Grinder Tender Name Role Phone Unavailable Primary Care Provider Unavailabl e Encounter Details Date Type Department Care Team (Late st Contact Info) Description 04/11/2020 Transcribed Document [facility] [place] [address] [place] [address] ProviderAbdiel MD [address] [place] [id number] Social History Tobacco Use Types Packs/Day Years Used Date Smoking Tobacco: Never Assessed Comments Unknown Sex and Gender Information Value Date Recorded Sex Assigned at Not on file Legal Sex Female 5:08 PM CDT Gender Identity Not on file Sexual Orientation Not on file documented as of this encounter Miscellaneous Notes * Cerner Conversion Note - Abdiel ProviderMD - 04/11/2020 1:40 PM CDT Patient: MICHAELLE LEONARD Age: 59 Years Sex: Female : 1960 Procedure: 1. Intracardiac echocardiography. 2. Transseptal access. 3. Electrophysiologic study. 4. 3D electroanatomic mapping. 5. Catheter ablation. 6. Isoproterenol provocation. 7. US guided venous access. ATTENDING SUPPORT SERVICES MANAGER: Cha Jean-Baptiste MD REFERRING PHYSICIAN: Chris Hernandez [...] vein. 6. Intracardiac echocardiography: A phased array 10-Ethiopian ICE catheter was advanced into the right [...] and transseptal access was performed using a [place] needle assembly with SL1. SL1 was then [...] CATHETER PROPERTIES: 1. Right femoral vein: An 7-Ethiopian short sheath,Biosense Salazar decapolar catheter, in coronary sinus, SVC for diaphragmatic pacing. 2. Left femoral vein: A 11-Ethiopian short sheath, Biosense Salazar, Sound Star ICE catheter. 3. Right femoral vein: An 8-Ethiopian long sheath (SL1), left atrium, exchanged with 15-Ethiopian FlexCath steerable sheath. 4. Right femoral artery: A 4-Ethiopian short sheath. ADMINISTERED MEDICATIONS: The procedure was [...] (achieve) manipulation. Penta-array was exchanged with the [employer] Front Advance catheter 3D voltage map of LA and PV's was obtained, showed overall normal voltage on posterior wall, with wide area circumferential ablation around pulmonary veins. Isoproterenol was then infused up to 20 mcg/min. No triggers were noted. EP study was then performed: AH=78 msec, HV=50 msec. WI 148 msec, QRS99 msec. Pent-array was placed [...]
--- OUTSIDE RECORDS SUMMARY | 2025-01-10 09:27 | XMS_ITS | Encounter Summary ---
Author Organization [facility] Address [address] [place] [address] Care Team Providers Care Property Administrator Name Role Phone Ulises Judd MD Primary Care Provider [phone] Reason for Visit * Reason Comments Med Refill Encounter Details Date Type Department Care Team (Late st Contact Info) Description 11/21/2023 Refill [place] [facility] [address], [address]st [place] [address] Trino Trevizo MD [address] [place] [address] Status post cervical spinal fusion [...] drink first t inna in the morning (EYE-MORGUE TECHNICIAN) to steady your nerves or to get [...] Description 03/21/2025 4:00 PM EDT Office Visit [place] [facility] [address], [address]st [place] [address] Trino Trevizo MD [address] [facility] [address] [place] [address] documented as of this encounter [...] documented as of this encounter Care Teams Property Administrator Relationship Specialty Start Date End Date Ulises Judd MD [address] [place] [address] PCP - General 07/27/21 documented as of this encounter
--- OUTSIDE RECORDS SUMMARY | 2025-01-10 09:27 | XMS_ITS | Encounter Summary ---
Author Organization [employer] ([place], [place], [place], [place]) Address [address] [place] [address] Care Team Providers Care Research And Development Researcher Name Role Phone Unavailable Primary Care Provider Unavailabl e Encounter Details Date Type Department Care Team (Late st Contact Info) Description 04/12/2020 Transcribed Document [facility] [place] [address] [place] [address] ProviderAbdiel MD [address] [place], [place] [id number] Social History Tobacco Use Types Packs/Day Years Used Date Smoking Tobacco: Never Assessed Comments Unknown Sex and Gender Information Value Date Recorded Sex Assigned at Not on file Legal Sex Female 5:08 PM CDT Gender Identity Not on file Sexual Orientation Not on file documented as of this encounter Miscellaneous Notes * Cerner Conversion Note - Abdiel ProviderMD - 04/12/2020 8:55 AM CDT UM Authorization Entered On: 04/12/2020 8:55 EDT Performed On: 04/12/2020 8:55 EDT by DORITA LAWRENCE Rn-Utilization Review Primary Insurance Authorization Authorization and Policy Numbers : Insurance 1 Health Plan: [employer] MEDICARE REPL Policy Number: [id number] Authorization Number: [id number] Insurance 2 Health Plan: MEDICAID [place] Policy Number: [id number] Authorization Number: Insurance Primary Name : [facility] MEDICARE REPL Policy Number: [id number] MEDICAID [place] Policy Number: [id number] Historical Authorization Comments-Primary : No Authorization Comments Found DORITA LAWRENCE Rn-Utilization Review - 04/12/2020 8:55 EDT documented in this encounter Plan of Treatment Not on file documented as of this encounter Visit Diagnoses Not on filedocumented in this encounter
--- OUTSIDE RECORDS SUMMARY | 2025-01-10 09:27 | XMS_ITS | Encounter Summary ---
Author Organization [employer] ([place]) Address [address] [place] [address] Care Team Providers Care Engineering Mathematician Name Role Phone Unavailable Primary Care Provider Unavailabl e Encounter Details Date Type Department Care Team (Late st Contact Info) Description 04/11/2020 Transcribed Document [facility] [place] [address] [place] [address] ProviderAbdiel MD [address] [id number] Social History Tobacco Use Types Packs/Day Years [...] Source : Measured Height Entry Format : [place] Height, Feet : 5 ft(Converted to: 152 cm, 60 Inch) Height, Inches : 7 Inch(Converted to: 0 ft 7 Inch, 17.78 cm) Clinical Height : 170.18 cm Weight Source : Standing scale Weight Entry Format : [place] Clinical Dosing Weight : 116.82 kg Weight, Pounds : 257 lb Body Surface Area (BSA) : 2.25 m2 Body Mass Index : 40.3 kg/m2 (>HHI) [place] Body Weight : 61 kg DONNA HUTCHINSON [...] DONNA HUTCHINSON RN - 04/11/2020 7:02 EDT [place] Suicide Severity Rating Scale (C-SSRS) CSSRS Past [...] Number : Emergency Contact #1 Relationship : [phone] Emergency Contact #2 : none Emergency Contact #2 Phone Number : none Emergency Contact #2 Relationship : n one Primary Language : Syrian Communication Barrier : None Party Chief Needed : No DONNA HUTCHINSON RN - [...] Scale Risk Level : 0-24 Low Risk [place] Fall Interventions : Adequate lighting, Assistive devices [...]
--- OUTSIDE RECORDS SUMMARY | 2025-01-10 09:27 | XMS_ITS | Encounter Summary ---
Author Organization [facility] Address [address] [place] [address] Care Team Providers Care Worm Farmer Name Role Phone Ulises Judd MD Primary Care Provider [phone] Reason for Visit * Reason Comments Med Refill Encounter Details Date Type Department Care Team (Late st Contact Info) Description 01/21/2023 Refill [place] [facility] [address], [address] [place] [address] Trino Trevizo MD [address] [place] [address] Status post cervical spinal fusion [...] drink first t inna in the morning (EYE-TECHNICAL SUPPORT ASSISTANT) to steady your nerves or to get [...] Description 03/21/2025 4:00 PM EDT Office Visit [facility] [address], [address] [place] [address] Trino Trevizo MD [address] [facility] [address] [place] [address] documented as of this encounter Visit Diagnoses Diagnosis Status post cervical spinal fusion Arthrodesis status documented in this encounter Additional Health Concerns Assessment Noted Time A fall risk assessment has been complete d for the patient 01/20/2023 12:42 PM EDT A Body Mass Index follow-up plan has been documented for the patient 01/20/2023 1:45 PM EDT documented as of this encounter Care Teams Worm Farmer Relationship Specialty Start Date End Date Ulises Judd MD [address] [place] [address] PCP - General 07/27/21 documented as of this encounter
--- OUTSIDE RECORDS SUMMARY | 2025-01-10 09:27 | XMS_ITS | Encounter Summary ---
Author Organization [employer] ([place], [place], [place], [place]) Address [address] [place] [address] Care Team Providers Care Senior Sales Operations Manager Name Role Phone Unavailable Primary Care Provider Unavailabl e Encounter Details Date Type Department Care Team (Late st Contact Info) Description 04/12/2020 Transcribed Document [facility] [place] [facility] [place] Family Medicine [address] [place] [address] ProviderAbdiel MD [address] [place] [address] Social History Tobacco Use Types Packs/Day Years [...] On: 04/12/2020 11:09 EDT by MAYNOR SEXTON Rn-Allergist/Pediatric Pulmonologist Initial Assessment I Previously Documented Living Environment : No qualifying data available. Living Situation : Home Patient Lives With : Spouse Emergency Contact #1 : Efren Emergency Contact #1 Phone Number : Emergency Contact #1 Relationship : [phone] Emergency Contact #2 : none Emergency Contact #2 Phone Number : none Emergency Contact #2 Relationship : n one Enter Doctors Name : Dr. London Does Patient have PCP Listed? : Yes Legal Guardian : No MAYNOR SEXTON Rn-Allergist/Pediatric Pulmonologist - 04/13/2020 11:09 EDT Initial Assessment II Sensory and Motor Deficits : None Current Home Treatments and Equipment : None MAYNOR SEXTON Rn-Allergist/Pediatric Pulmonologist - 04/13/2020 11:09 EDT Discharge Needs I Anticipated Discharge Date : 04/14/2020 EDT Anticipated Discharge To, CM : Home with family care Current Home Treatment/Equipment : Current Home Treatment/Equipment No qualifying data available. Post Acute/Home Treatments : None Documentation Status Complete : Yes MAYNOR SEXTON Rn-Allergist/Pediatric Pulmonologist - 04/13/2020 11:09 EDT Discharge Needs II Professional Skilled Services : Professional Skilled Services No qualifying data available. Needs Assistance with Transportation : No Discharge Options Discussed with Patient : Discharge transportation, DME, Home Health, Outpatient services MAYNOR SEXTON Rn-Allergist/Pediatric Pulmonologist - 04/13/2020 11:09 EDT documented in this encounter Plan of Treatment Not on file documented as of this encounter Visit Diagnoses Not on filedocumented in this encounter
--- OUTSIDE RECORDS SUMMARY | 2025-01-10 09:27 | XMS_ITS | Encounter Summary ---
Author Organization [employer] ([place], [place], [place]) Address [address] [place] [address] Care Team Providers Care Cad Specialist Name Role Phone Unavailable Primary Care Provider Unavailabl e Encounter Details Date Type Department Care Team (Late st Contact Info) Description 04/12/2020 Transcribed Document [facility] [place] Family Medicine [address] [place] [address] ProviderAbdiel MD [address] [place] [address] Social History Tobacco Use Types Packs/Day Years [...]
--- OUTSIDE RECORDS SUMMARY | 2025-01-10 09:27 | XMS_ITS | Encounter Summary ---
Author Organization [facility] Address [address] [place] [address] Care Team Providers Care Director On Air Name Role Phone Ulises Judd MD Primary Care Provider [phone] Reason for Visit * Reason Comments Med Refill Encounter Details Date Type Department Care Team (Late st Contact Info) Description 05/21/2023 Refill [place] [facility] [address] [place] [address] Trino Trevizo MD [address] [place] [address] Cervical myelopathy with cervical radiculopathy [...] drink first t inna in the morning (EYE-NEWS PRODUCTION ASSISTANT) to steady your nerves or to [...] Sultana PA - 05/21/2023 1:33 PM EST [facility] request #: [id number] was reviewed and appropriate. Refill for Lyrica 75 mg BID sent to Dr. Trevizo for authorization. documented in this encounter Plan of Treatment Upcoming Encounters Date Type Department Care Team (Late st Contact Info) Description 03/21/2025 4:00 PM EDT Office Visit [place] [facility] [address] [place] [address] Trino Trevizo MD [address] [place] [address] documented as of this encounter Visit Diagnoses [...] as of this encounter Care Teams Director On Air Relationship Specialty Start Date End Date Ulises Judd MD [address] [place] [address] PCP - General 07/27/21 documented as of this encounter
--- OUTSIDE RECORDS SUMMARY | 2025-01-10 09:27 | XMS_ITS | Encounter Summary ---
Author Organization [facility] Address [address] [place] [address] Care Team Providers Care Slot Machine Mechanic Name Role Phone Ulises Judd MD Primary Care Provider [phone] Reason for Visit * Reason Comments Med Refill Encounter Details Date Type Department Care Team (Late st Contact Info) Description 01/21/2023 Refill [place] [facility] [address] [place] [address] Nathan Feliciano MD [address] [place] [address] Cervical myelopathy with cervical radiculopathy [...] drink first t inna in the morning (EYE-MARGIN ANALYST) to steady your nerves or to [...] Description 03/21/2025 4:00 PM EDT Office Visit [place] [facility] [address] [place] [address] Trino Trevizo MD [address] [facility] [address] [place] [address] documented as of this encounter [...] documented as of this encounter Care Teams Slot Machine Mechanic Relationship Specialty Start Date End Date Ulises Judd MD [address] [place] [address] PCP - General 07/27/21 documented as of this encounter
--- OUTSIDE RECORDS SUMMARY | 2025-01-10 09:27 | XMS_ITS | Encounter Summary ---
Author Organization [facility] Address [address] [place] [address] Care Team Providers Care Concession Attendant Name Role Phone Ulises Judd MD Primary Care Provider [phone] Encounter Details Date Type Department Care Team (Latest Contact Info) Description 01/03/2025 Travel Social History Tobacco Use Types Packs/Day [...] drink first t inna in the morning (EYE-TRACK LEADER) to steady your nerves or to get [...] Description 03/21/2025 4:00 PM EDT Office Visit [place] [facility] [address], [address] [place] [address] Trino Trevizo MD [address] [facility] [address] [place] [address] documented as of this encounter Visit Diagnoses Not on filedocumented in this encounter Additional Health Concerns Assessment Noted Time A fall risk assessment has been complete d for the patient 01/03/2025 3:17 PM EDT A Body Mass Index follow-up plan has been documented for the patient 01/03/2025 9:21 PM EDT documented as of this encounter Care Teams Concession Attendant Relationship Specialty Start Date End Date Ulises Judd MD [address] [place] [address] PCP - General 07/27/21 documented as of this encounter
--- OUTSIDE RECORDS SUMMARY | 2025-01-10 09:27 | XMS_ITS | Encounter Summary ---
Author Organization [employer] ([place], [place], [place], [place]) Address [address] [place] [address] Care Team Providers Care Biophysics Professor Name Role Phone Unavailable Primary Care Provider Unavailabl e Encounter Details Date Type Department Care Team (Late st Contact Info) Description 04/12/2020 Transcribed Document [facility] [place] [address] [place] [address] ProviderAbdiel MD [address] [place] [address] Social History Tobacco Use Types Packs/Day Years Used Date Smoking Tobacco: Never Assessed Comments Unknown Sex and Gender Information Value Date Recorded Sex Assigned at Not on file Legal Sex Female 5:08 PM CDT Gender Identity Not on file Sexual Orientation Not on file documented as of this encounter Miscellaneous Notes * [employer] Conversion Note - Abdiel ProviderMD - 04/12/2020 3:28 AM CDT Admission [...] : marky Emergency Contact #1 Relationship : [phone] Emergency Contact #2 : none Emergency Contact #2 Phone Number : none Emergency Contact #2 Relationship : n one Primary Language : Pry[place]inig Communication Barrier : None Sorter Upholstery Parts Needed : No Sally Huang Rn - [...] Scale Risk Level : 25-45 Medium Risk [place] Fall Interventions : Adequate lighting Barriers to Learning : None evident Sally Huang Rn - 04/12/2020 3:36 EDT Health Histories Smoking Status : Former smoker, quit more than 30 days ago Smokeless Tobacco Status : Never Sally uHang Rn - 04/12/2020 3:36 EDT Social History (As Of: 04/12/2020 03:36:56 EDT) Alcohol: Alcohol Use History No. (Last Updated: 12/15/2015 07:35:28 EDT by RENETTA DOMÍNGUEZ) Substance Abuse: Drug Use Hx: No. (Last Updated: 12/15/2015 07:35:34 EDT by RENETTA DOMÍNGUEZ) Height and Weight, Clinical Dosing Height Source : Measured Height Entry Format : [place] Height, Feet : 5 ft(Converted to: 152 cm, 60 Inch) Height, Inches : 7 Inch(Converted to: 0 ft 7 Inch, 17.78 cm) Clinical Height : 170.18 cm Weight Source : Standing scale Weight Entry Format : [place] Clinical Dosing Weight : 116.82 kg Weight, Pounds : 257 lb Body Surface Area (BSA) : 2.25 m2 Body Mass Index : 40.3 kg/m2 (>HHI) [place] Body Weight : 61 kg Sally Huang [...] Sally Huang Rn - 04/12/2020 3:36 EDT [place] Suicide Severity Rating Scale (C-SSRS) CSSRS Past [...] : Yes Gender Male : No Sally Huang Rn - 04/12/2020 3:36 EDT Valuables and Belongings Valuables and Belongings : Clothing Clothing : Common streetwear Clothing Disposition : Bedside Sally Huang Rn - 04/12/2020 3:36 EDT Electronically signed by Jose [facility] Conversion C[employer]on Sawyer Cerner at 10/15/2022 5:23 PM CDT documented in this encounter Plan of Treatment Not on file documented as of this encounter Visit Diagnoses Not on filedocumented in this encounter
--- OUTSIDE RECORDS SUMMARY | 2025-01-10 09:27 | XMS_ITS | Encounter Summary ---
Author Organization [facility] Address [address] [place] [address] Care Team Providers Care Director Of Institutional Sales Name Role Phone Ulises Judd MD Primary Care Provider [phone] Encounter Details Date Type Department Care Team ([facility] st Contact Info) Description 11/11/2024 Orders Only External Location [address] [place] [address] Provider, External Social History Tobacco Use Types [...] drink first t inna in the morning (EYE-CNMT) to steady your nerves or to get [...] Description 03/21/2025 4:00 PM EDT Office Visit [place] [facility] [address], [address] [place] [address] Trino Trevizo MD [address] [facility] [address] [place] [address] documented as of this encounter Procedures Procedure Name Priority Date/Time Associated Diagnosis Comments MR NEURO OUTSIDE IMAGES 11/11/2024 1:19 PM EDT documented in this encounter Results * MR NEURO OUTSIDE IMAGES (11/11/2024 1:19 PM EDT) Anatomical Region Laterality Modality Magnetic Resonan ce 11/11/2024 1:19 PM EDT us External Provider IMG MRI PROCEDURES Final Resul t documented in this encounter Visit Diagnoses Not on filedocumented in this encounter Additional Health Concerns Assessment Noted Time A fall risk assessment has been complete d for the patient 10/25/2024 2:41 PM EDT A Body Mass Index follow-up plan has been documented for the patient 10/25/2024 6:15 PM EDT documented as of this encounter Care Teams Director Of Institutional Sales Relationship Specialty Start Date End Date Ulises Judd MD [address] [facility] [place] [address] PCP - General 07/27/21 documented as of this encounter
--- OUTSIDE RECORDS SUMMARY | 2025-01-10 09:27 | XMS_ITS | Encounter Summary ---
Author Organization [employer] ([place], [place], [place], [place]) Address [address] [place] [address] Care Team Providers Care Aerospace Assembler Name Role Phone Unavailable Primary Care Provider Unavailabl e Encounter Details Date Type Department Care Team (Late st Contact Info) Description 04/11/2020 Transcribed Document [facility] [place] Medicine [address] [place] [address] ProviderAbdiel MD [address], [place] [id number] Social History Tobacco Use Types Packs/Day Years Used Date Smoking Tobacco: Never Assessed Comments Unknown Sex and Gender Information Value Date Recorded Sex Assigned at Not on file Legal Sex Female 5:08 PM CDT Gender Identity Not on file Sexual Orientation Not on file documented as of this encounter Miscellaneous Notes * Cerner Conversion Note - Abdiel ProviderMD - 04/11/2020 8:00 AM CDT [facility] Main OR PACU Summary Primary Physician: SERGEY PERKINS MD-CAR Finalized Date/Time: 04/11/20 14:25:18 Pt. Name: MICHAELLE LEONARD/Sex: 1960 Female Med Rec #: [id number] Physician: SERGEY PERKINS MD-CAR Financial #: [id number] Pt. Type: O Room/Bed: [facility]/1 Admit/Disch: 04/11/20 05:59:00 - Institution: [facility] Main OR PACU I Case Times Entry [...]
--- OUTSIDE RECORDS SUMMARY | 2025-01-10 09:27 | XMS_ITS | Encounter Summary ---
Author Organization [facility] Address [address] [place] [place] [address] Care Team Providers Care Sap Basis Name Role Phone Ulises Judd MD Primary Care Provider [phone] Encounter Details Date Type Department Care Team ([facility] st Contact Info) Description 11/11/2024 Orders Only External Location [address] [place] [address] Provider, External Social History Tobacco Use Types [...] drink first t inna in the morning (EYE-METAL MOVER) to steady your nerves or to get [...] Description 03/21/2025 4:00 PM EDT Office Visit [place] [facility] [address], [address] [place] [address] Trino Trevizo MD [address] [facility] [address] [place] [address] documented as of this encounter [...] documented as of this encounter Care Teams Sap Basis Relationship Specialty Start Date End Date Ulises Judd MD [address] [place] [place] [address] PCP - General 07/27/21 documented as of this encounter
--- OUTSIDE RECORDS SUMMARY | 2025-01-10 09:27 | XMS_ITS | Encounter Summary ---
Author Organization [employer] ([place], [place], [place], [place]) Address [address] [place] [address] Care Team Providers Care Cleaner And Preparer Name Role Phone Unavailable Primary Care Provider Unavailabl e Encounter Details Date Type Department Care Team (Late st Contact Info) Description 04/12/2020 Transcribed Document [facility] [place] Family Medicine [address] [place] [address] ProviderAbdiel MD [address], [place] [id number] Social History Tobacco Use Types Packs/Day Years Used Date Smoking Tobacco: Never Assessed Comments Unknown Sex and Gender Information Value Date Recorded Sex Assigned at Not on file Legal Sex Female 5:08 PM CDT Gender Identity Not on file Sexual Orientation Not on file documented as of this encounter Miscellaneous Notes * [employer] Conversion Note - Abdiel ProviderMD - 04/12/2020 12:59 AM CDT Spiritual Care Short Form Entered On: 04/12/2020 1:00 EDT Performed On: 04/12/2020 0:59 EDT by TORIE TEAGUE Chaplain General Information, Spiritual Care Spiritual Care Referred by : Director Of Medicare initiated Reason for Visit : Initial Ministry [...] EDT Electronically signed by Bogdan Garcia Conversion Senior National Account Manager [employer] at 10/15/2022 5:12 PM CDT documented in this encounter Plan of Treatment Not on file documented as of this encounter Visit Diagnoses Not on filedocumented in this encounter
--- OUTSIDE RECORDS SUMMARY | 2025-01-10 09:27 | XMS_ITS | Encounter Summary ---
Author Organization [employer] ([place], [place], [place], [place]) Address [address] [place] [address] Care Team Providers Care Drum Drier Operator Name Role Phone Unavailable Primary Care Provider Unavailabl e Encounter Details Date Type Department Care Team (Late st Contact Info) Description 04/12/2020 Transcribed Document [facility] [place] Family Medicine [address] [place] [address] ProviderAbdiel MD [address] [place], [place] [id number] Social History Tobacco Use Types Packs/Day Years [...] Allergies (1) Active Reaction Supartz None Documented [facility] EP Discharge Summary: Primary Associate Professor Of Mathematics: Dr. Hernandez PCP: Saundra Angel Consults: Dr. [...] monitor study about three months ago at [facility] when she was diagnosed with PAF. [...] addressed. Followup Appointments: PCP as scheduled Primary Associate Professor Of Mathematics as scheduled EP in 1 month Patient [...]
--- OUTSIDE RECORDS SUMMARY | 2025-01-10 09:27 | XMS_ITS | Encounter Summary ---
Author Organization [employer] ([place], [place], [place], [place]) Address [address] [place] [address] Care Team Providers Care Job Coaching Name Role Phone Unavailable Primary Care Provider Unavailabl e Encounter Details Date Type Department Care Team (Late st Contact Info) Description 04/11/2020 Transcribed Document [facility] [place] Family Medicine [address] [place] [address] ProviderAbdiel MD [address] [place] [address] Social History Tobacco Use Types Packs/Day Years [...] Goal : 4 Sally Huang Rn - 04/12/2020 1:18 EDT documented in this encounter Plan of Treatment Not on file documented as of this encounter Visit Diagnoses Not on filedocumented in this encounter
--- OUTSIDE RECORDS SUMMARY | 2025-01-10 09:27 | XMS_ITS | Clinical Summary ---
Author Organization [facility] Address [address] [place] [address] Care Team Providers Care Asphalt Paving Superintendent Name Role Phone Ulises Judd MD Primary Care Provider [phone] Allergies Active Allergy Reactions Criticality Noted Date [...] 1 (one) time each day. Active B Zxgnoqf-Emtszm-EB ( VITAMIN B 50/B-COMPLEX PO) Take 1 tablet by mouth 1 (one) time each day. Active Multiple Vitamins-Minerals (GNP Century Mature Women's 50+) tablet Take 1 tablet by mouth 1 (one) time each day. Active HYDROcodone-aceta minophen ([place]) 7.5-325 MG tablet Take 1 tablet by mouth 4 (four) times a day. Please hold home pain medications while taking the pain medication that was prescribed to you following your surgery. 0 3 Active Additional Information Patient not taking.Reported on 01/03/2025 Xarelto 20 MG tablet Take 1 tablet (20 mg total) by mouth 1 (one) time each day. May resume 2 weeks after your most recent surgery. 3 Active Additional Information Patient not taking.Reported on 01/03/2025 venlafaxine XR (Effexor-XR) 150 MG 24 hr [...] Active Additional Information Patient not taking.Reported on 01/03/2025 doxycycline (Vibramycin) 100 MG capsule TAKE ONE [...] Active Additional Information Patient not taking.Reported on 01/03/2025 pregabalin (Lyrica) 75 MG capsuleIndication s:Status post cervical spinal fusion Take 1 capsule (75 mg) by mouth 2 (two) times a day. 60 capsule 2 4 Active Additional Information Patient not taking.Reported on 01/03/2025 baclofen (Lioresal) 10 MG tablet 1 tablet. 5 Active phenazopyridine (Pyridium) 100 MG tablet Take 1 tablet by mouth. 5 Active HYDROcodone-aceta minophen ([place]) 10-325 MG tablet TAKE ONE TABLET BY MOUTH FOUR TIMES DAILY NEEDED FOR PAIN (scale score 4-6) MAY CAUSE DROWSINESS 5 Active levothyroxine (Synthroid, Levoxyl) 137 MCG tablet Take 1 tablet by mouth daily. 4 Active methocarbamol (Robaxin) 750 MG tablet 1 tablet. 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 PONV (postoperative nausea and vomiting) 022 REFUGIO (obstructive sleep apnea) 07/25/2021 Atrial fibrillation 07/25/2021 Poor tolerance for activity 07/25/2021 Resolved Problems Problem Noted Date Diagnosed Date Resolved Date Cervical spinal cord compression 08/23/2022 09/04/2022 Encounters Date Type Department Care Team Description 01/03/2025 3:30 PM EDT Office Visit [place] [facility] [address], [address] [place] [address] Trino Trevizo MD Lumbar spondylosis (Primary Dx); Lumbar radiculopathy; Spinal stenosis of lumbar region with neurogenic claudication; Degeneration of intervertebral disc of lumbar region with discogenic back pain and lower extremity pain 01/03/2025 Travel 11/11/2024 Orders Only External Location [address] [place] [address] Provider, External 11/11/2024 Orders Only External Location [address] [place] [phone] Provider, External 11/05/2024 Orders Only External Location [address] [place] [address] Provider, External 10/25/2024 2:06 PM EDT - 10/25/2024 11:59 PM EDT Hospital Encounter [place] [facility] Radiology [address], [address] [place] [address] Status post cervical spinal fusion Discharge Disposition: Home or Self Care 10/25/2024 2:00 PM EDT Office Visit [place] [facility] [address], [address] [place] [address] Trino Trevizo MD Status post cervical spinal [...] Depression Mother Merlyn Hypertension Mother Merlyn Migraines [facility] [place] Alcohol abuse Other Arthritis Other Diabetes [...] drink first t inna in the morning (EYE-LOAN INTERVIEWER MORTGAGE) to steady your nerves or to get [...] Pulse 63 01/03/2025 3:17 PM EDT Temperature 36.6 C (97.8 F) 05/18/2024 11:35 AM EST Respiratory Rate 17 10/28/2022 3:44 PM EDT Oxygen Saturation 96% 01/03/2025 3:17 PM EDT Inhaled Oxygen Concentration - - Weight 98.8 kg (217 lb 13 oz) 01/03/2025 3:17 PM EDT Height 160 cm (5' 3 ) 01/03/2025 3:17 PM EDT Body Mass Index 38.58 01/03/2025 3:17 PM EDT Plan of Treatment Upcoming Encounters Date Type Department Care Team (Late st Contact Info) Description 03/21/2025 4:00 PM EDT Office Visit [place] [facility] [address], [address] [place] [address] Trino Trevizo MD [address] [place] [address] Health Maintenance Due Date Last Done Comments [facility]-Bone Density Scan 1960 [facility]-Infant/Child/Adol SDOH Screenings 1960 [facility]- SDOH Screenings 1978 [facility]-Adult SDOH Screenings 1978 [facility]-DTaP,Tdap,and Td Vaccines (1 - Tdap) 11/27/1979 CT Colonography 2005 Colonoscopy 2005 FIT 2005 FOBT 2005 Sigmoidoscopy 2005 [facility]-Zoster Vaccines (1 of 2) 2010 [facility]-RSV Vaccine: 60+ Years or (1 - Risk 60-74 years 1-dose series) 2020 [id number] Vaccine (3 - Moderna risk series) 01/05/2021 12/08/2020, 11/10/2020 [facility]-Breast Cancer Screening 12/06/2023 12/05/2021 [facility]-Depression Screening 01/21/2024 01/20/2023 [facility]-Influenza Vaccine (#1) 02/28/202505/27, 04/30/2022, 04/30/2022, Additional history exists [facility]-Medicare Annual Wellness (AWV) 09/21/2025 09/21/2024, 09/18/2023 FIT-DNA 12/06/2027 12/05/2024, 11/01/2021 [facility]-Colorectal Cancer Screening 12/06/2027 [facility]-HIV Screening Completed 08/23/2022, 07/03/2021 [facility]-Hepatitis C Screening Completed 08/23/2022, 09/2021 [facility]-Pneumococcal Vaccine: 50+ Years Completed 09/18/2023 [facility]-Obesity Intervention Completed 025, 10/25/2024, 05/18/2024, Additional history exists HPV Vaccines Aged Out [...] this topic Medical Devices Implanted Type Area Manager Cardiac Device Identifier Shelf Expiration Date Model / Serial / Lot Cement Palacos Lv W Gent - [id number] - [id number] Implanted:Qty: 6 on 03/15/2022 by Pino Ponce MD at [facility] Cement Left: Knee [employer] Inc-[id number] 08/28/2023 [id number] / [id number] / Putty Fibergraft Bg Xsmall 1cc - [id number] - [id number] Implanted:Qty: 1 on 08/25/2022 by Trino Trevizo MD at [facility] Implant N/A: Spine Cervical [employer] LP-[id number] 12/08/2023 [id number] / [id number] / [id number] Juan Str Ti 4.0x240 - S. - [id number] Implanted:Qty: 1 on 08/27/2022 by Trino Trevizo MD at [facility] Juan N/A: Spine Cervical [employer]-[id number] 08/27/2023 [id number] / . / Set Screw - S. - [id number] Implanted:Qty: 11 on 08/27/2022 by Trino Trevizo MD at [facility] Screw N/A: Spine Cervical [employer] LP-[id number] 08/27/2023 [id number] / . / Screw 4.0 Ply 3.5x16 - S. - [id number] Implanted:Qty: 5 on 08/27/2022 by Trino Trevizo MD at [facility] Screw N/A: Spine Cervical [employer] LP-[id number] 08/27/2022 [id number] / . / Screw 4.0 Ply Cfx 4.5x26 - S. - [id number] Implanted:Qty: 2 on 08/27/2022 by Trino Trevizo MD at [facility] Screw N/A: Spine Cervical [employer]-[id number] 08/27/2023 [id number] / . / Screw 4.0 Ply Cfx 4.5x30 - S. - [id number] Implanted:Qty: 2 on 08/27/2022 by Trino Trevizo MD at [facility] Screw N/A: Spine Cervical [employer]-[id number] 08/27/2023 [id number] / . / Screw 4.0 Ply 4.0x30 - S. - [id number] Implanted:Qty: 1 on 08/27/2022 by Trino Trevizo MD at [facility] Screw N/A: Spine Cervical [employer] LP-[id number] 08/27/2023 [id number] / . / Screw 4.0 Ply 4.0x24 - S. - [id number] Implanted:Qty: 1 on 08/27/2022 by Trino Trevizo MD at [facility] Screw N/A: Spine Cervical [employer] LP-[id number] 08/27/2023 [id number] / . / Tibial Baseplate Size 4 Component - [id number] - [id number] Implanted:Qty: 1 on 03/15/2022 by Pino Ponce MD at [facility] Left: Knee [employer]-[id number] 05/15/2029 TB-2204E-01 / [id number] / Stem Ext 71b85za Str Bullet-Tip 78u22kw - [id number] - [id number] Implanted:Qty: 1 on 03/15/2022 by Pino Ponce MD at [facility] Left: Knee [employer]-[id number] 06/01/2029 [id number] / [id number] / Stem Str Fluted 36mm Collar [id number] - [id number] - [id number] Implanted:Qty: 1 on 03/15/2022 by Pino Ponce MD at [facility] Left: Knee [employer]-[id number] 02/07/2029 [id number] / [id number] / Distalfemur [id number] - [id number] - [id number] Implanted:Qty: 1 on 03/15/2022 by Pino Ponce MD at [facility] Left: Knee [employer]-175551 10/17/2029 [id number] / [id number] / One Size Tibial Baseplate Tapered Screw Implanted:Qty: 1 on 03/15/2022 by Pino Ponce MD at [facility] Left: Knee [employer] 12/07/2025 TB-TSCRW-01 M / [id number] / Description:NONFILE Eleos Tibial Hinge W/O Rotational Stop - [id number] - [id number] Implanted:Qty: 1 on 03/15/2022 by Pino Ponce MD at [facility] Left: Knee [employer]-[id number] 07/10/2029 [id number] / [id number] / Distalfemur Axial Pin One Size - [id number] - [id number] Implanted:Qty: 1 on 03/15/2022 by Pino Ponce MD at [facility] Left: Knee [employer]-[id number] 12/13/2028 [id number] / [id number] / Tibial Poly Spacer 12mm - [id number] Implanted:Qty: 1 on 03/15/2022 by Pino Ponce MD at [facility] Left: Knee [employer] Inc-[id number] 02/25/2027 [id number] / / [id number] Compression Pin, 12mm - [id number] Implanted:Qty: 2 on 08/25/2022 by Trino Trevizo MD at [facility] [employer]-[id number] 08/25/2023 [id number] / / Bengal Stack Std Lisbeth 30mm - [id number] Implanted:Qty: 1 on 08/25/2022 by Trino Trevizo MD at [facility] N/A: Spine Cervical [employer] LP-358604 08/25/2023 [id number] / / Plate Two Level 36mm - [id number] Implanted:Qty: 1 on 08/25/2022 by Trino Trevizo MD at [facility] N/A: Spine Cervical [employer]-669149 08/25/2023 [id number] / / Self Drilling Screw 18mm - [id number] Implanted:Qty: 3 on 08/25/2022 by Trino Trevizo MD at [facility] N/A: Spine Cervical [employer] LP-074670 08/25/2023 [id number] / / Self Drilling Screw 16mm - [id number] Implanted:Qty: 1 on 08/25/2022 by Trino Trevizo MD at [facility] N/A: Spine Cervical [employer] LP-292886 08/25/2023 [id number] / / Graft Vivigen 10cc - [id number] Implanted:Qty: 1 on 08/27/2022 by Trino Trevizo MD at [facility] N/A: Spine Cervical [facility]-068910 04/24/2026 BL-[id number] / / [id number] Matrix Fibergraft Bg Lg 12.5cc - [id number] Implanted:Qty: 1 on 08/27/2022 by Trino Trevizo MD at [facility] N/A: Spine Cervical De[employer] LP-092574 08/01/2024 [id number] / / [id number] Description:Used part# [id number] Connector Lateral Offset 4.0 L - S. - [id number] Implanted:Qty: 1 on 08/27/2022 by Trino Trevizo MD at [facility] N/A: Spine Cervical De[employer] -[id number] 08/27/2023 [id number] / . / Procedures Procedure Name Priority Date/Time Associated Diagnosis Comments MR NEURO OUTSIDE IMAGES 11/12/19 1:19 PM EDT MR NEURO OUTSIDE IMAGES 11/12/19 1:[address] NEURO OUTSIDE IMAGES 11/06/19 3:10 PM EDT XR CERVICAL SPINE 2 OR 3 VIEWS [...] Recently Relevant to Health Maintenance Results * MR NEURO OUTSIDE IMAGES (11/11/2024 1:19 PM EDT) Only the most recent of2 resultswithin the time period is included. Anatomical Region Laterality Modality Magnetic Resonan ce 11/11/2024 1:19 PM EDT us External Provider IMG MRI PROCEDURES Final Resul t * CT NEURO OUTSIDE IMAGES (11/05/2024 3:10 PM EDT) Anatomical Region Laterality Modality Computed Tomogra phy 11/05/2024 3:10 PM EDT us External Provider IMG CT PROCEDURES Final Result * XR Cervical Spine 2 or 3 [...] Antibody/Antigen Screen (08/23/2022 1:43 PM EST) Pathologist [facility] HIV 1 & 2 Antibody/Antigen Screen Non Reactive Non Reactive 08/23/2022 3:06 PM EST [facility] Comment:Screening for HIV 1 & 2 antibodies, and P24 antigen is NONREACTIVE. No confirmatory testing is required. Blood Venous blood specimen / Unknown Venipuncture / Unknown 08/23/2022 1:43 PM EST 08/23/2022 2:22 PM EST Sally Washington MD LAB BLOOD ORDERABLES Final R esult Performing Organization Address City/[facility]/ZIP Co de Phone Number [facility] [address] [place] [address] * Hepatitis C Antibody - ED (08/23/2022 1:43 PM EST) Pathologist [facility] Hepatitis C Antibody Negative Negative 08/23/2022 3:03 PM EST [facility] Blood Venous blood specimen / Unknown Venipuncture / Unknown 08/23/2022 1:43 PM EST 08/23/2022 2:22 PM EST Sally Washington MD LAB BLOOD ORDERABLES Final R esult [facility] [address] [place] [address] * Mammography Breast Screening Tomosynthesis Bilateral (12/05/2021 [...] to: 01/05/2019 Mammography Outside Images Upload at [employer] 02/08/2020 Mammography Outside Images Upload at [facility] BREAST COMPOSITION: The breasts are almost entirely fatty. FINDINGS: There are no suspicious masses, calcifications, or areas of architectural distortion in either breast. us Ulises Judd MD IMG BI PROCEDURES Final Resul t from Last 3 Months or Most Recently Relevant to Health Maintenance Insurance [employer] MEDICARE Advance Directives * Full Code (Latest [...] Patient has decision-making capacity? Yes Care Teams Asphalt Paving Superintendent Relationship Specialty Start Date End Date Ulises Judd MD [address] [address] PCP - General 07/27/21
--- OUTSIDE RECORDS SUMMARY | 2025-01-10 09:27 | XMS_ITS | Encounter Summary ---
Author Organization Healthcare Address [address] [place] [address] Care Team Providers Care Liability Claims Representative Name Role Phone Ulises Judd MD Primary Care Provider [phone] Reason for Visit * Reason Comments Med Refill Encounter Details Date Type Department Care Team (Late st Contact Info) Description 05/22/2022 Refill Medical Office Building [facility] [address] [facility] [facility], [address] [place] [address] Pino Ponce MD [address] [place] [address] Social History Tobacco Use Types Packs/Day Years [...] Description 03/21/2025 4:00 PM EDT Office Visit [place] [facility] [address], [address] [place] [address] Trino Trevizo MD [address] [facility] [address] [place] [address] documented as of this encounter Visit Diagnoses Not on filedocumented in this encounter Additional Health Concerns Assessment Noted Time A fall risk assessment has been complete d for the patient 05/07/2022 3:42 PM EST documented as of this encounter Care Teams Liability Claims Representative Relationship Specialty Start Date End Date Ulises Judd MD [address] [place] [address] PCP - General 07/27/21 documented as of this encounter
--- OUTSIDE RECORDS SUMMARY | 2025-01-10 09:27 | XMS_ITS | Encounter Summary ---
Author Organization [employer] ([place], [place], [place], [place]) Address [address] [place] [address] Care Team Providers Care Virtualization Consultant Name Role Phone Unavailable Primary Care Provider Unavailabl e Encounter Details Date Type Department Care Team (Late st Contact Info) Description 04/11/2020 Transcribed Document [facility] [place] Family Medicine [address] [place] [address] ProviderAbdiel MD [address] [place] [address] Social History Tobacco Use Types Packs/Day Years [...] Performed On: 04/12/2020 22:41 EDT by Sally Huang Rn Intervention Information: acetaminophen-HYDROcodone Performed by Sally Huang Rn on 04/12/2020 21:41:00 EDT acetaminophen-HYDROcodone,1Tab Oral,Pain Pain Assessment Pain Assessment : Follow-up assessment Pain Scale Goal : 4 Sally Huang Rn - 04/13/2020 0:48 EDT documented in this encounter Plan of Treatment Not on file documented as of this encounter Visit Diagnoses Not on filedocumented in this encounter
--- OUTSIDE RECORDS SUMMARY | 2025-01-10 09:27 | XMS_ITS | Encounter Summary ---
Author Organization [employer] ([place], [place], [place], [place]) Address [address] [place] [address] Care Team Providers Care Driver Service Technician Name Role Phone Unavailable Primary Care Provider Unavailabl e Encounter Details Date Type Department Care Team (Late st Contact Info) Description 04/12/2020 Transcribed Document [facility] Family Medicine [address] [place] [address] ProviderAbdiel MD [address] [place] [address] Social History Tobacco Use Types Packs/Day Years [...] On: 04/12/2020 10:39 EDT by CARROLL ROMERO, waitstaff captain Documentation Patient Disposition, General : Discharge Discharge To : Home with ambulatory/outpatient follow-up Education Comment : CARROLL Garnett, RN - 04/12/2020 10:39 EDT documented in this encounter Plan of Treatment Not on file documented as of this encounter Visit Diagnoses Not on filedocumented in this encounter
--- OUTSIDE RECORDS SUMMARY | 2025-01-10 09:28 | XMS_ITS | Encounter Summary ---
Author Organization [facility] Address [address] [place] [address] Care Team Providers Care Senior Java Programmer Analyst Name Role Phone Ulises Judd MD Primary Care Provider [phone] Reason for Visit * Reason Comments Med Refill Encounter Details Date Type Department Care Team (Late st Contact Info) Description 01/23/2024 Refill [place] [facility] [address], [address] [place] [address] Trino Trevizo MD [address] [place] [address] Status post cervical spinal fusion [...] drink first t inna in the morning (EYE-BUNDLE CLERK) to steady your nerves or to [...] 01/23/2024 4:11 PM EDT Report # : [id number] was reviewed and appropriate. Medication refill for Lyrica was sent to Dr. Trevizo for authorization. documented in this encounter Plan of Treatment Upcoming Encounters Date Type Department Care Team (Late st Contact Info) Description 03/21/2025 4:00 PM EDT Office Visit [place] [facility] [address] [place] [address] Trino Trevizo MD [address] [facility] [address] [place] [address] documented as of this encounter Visit Diagnoses Diagnosis Status post cervical spinal fusion Arthrodesis status documented in this encounter Additional Health Concerns Assessment Noted Time A fall risk assessment has been complete d for the patient 08/25/2023 2:32 PM EST A Body Mass Index follow-up plan has been documented for the patient 08/26/2023 7:29 AM EST documented as of this encounter Care Teams Senior Java Programmer Analyst Relationship Specialty Start Date End Date Ulises Judd MD [address] [place] [address] PCP - General 07/27/21 documented as of this encounter
--- OUTSIDE RECORDS SUMMARY | 2025-01-10 09:28 | XMS_ITS | Encounter Summary ---
Author Organization [employer] ([place], [place], [place], [place]) Address [address] [place] [address] Care Team Providers Care Telemarketing Representative Name Role Phone Unavailable Primary Care Provider Unavailabl e Encounter Details Date Type Department Care Team (Late st Contact Info) Description 04/11/2020 Transcribed Document [facility] [place] [address] [place] [address] ProviderAbdiel MD [address] [place] [address] Social History Tobacco Use Types Packs/Day Years Used Date Smoking Tobacco: Never Assessed Comments Unknown Sex and Gender Information Value Date Recorded Sex Assigned at Not on file Legal Sex Female 5:08 PM CDT Gender Identity Not on file Sexual Orientation Not on file documented as of this encounter Miscellaneous Notes * Cerner Conversion Note - Abdiel ProviderMD - 04/11/2020 6:17 AM CDT Education-Surgery Entered On: 04/11/2020 14:37 EDT Performed On: 04/11/2020 6:17 EDT by CARROLL ROMERO, RN Teaching/Learning Assessment Barriers To Learning : [...]
--- OUTSIDE RECORDS SUMMARY | 2025-01-10 09:28 | XMS_ITS | Clinical Summary ---
Author Organization [employer] ([place], [place], [place], [place]) Address [address] [place] [address] Care Team Providers Care Silo Tender Name Role Phone Unavailable Primary Care [...]
--- OUTSIDE RECORDS SUMMARY | 2025-01-10 09:28 | XMS_ITS | Encounter Summary ---
Author Organization [employer] ([place], [place], [place], [place]) Address [address] [place] [address] Care Team Providers Care Phosphoric Acid Operator Name Role Phone Unavailable Primary Care Provider Unavailabl e Encounter Details Date Type Department Care Team (Late st Contact Info) Description 04/13/2020 Transcribed Document [facility] [place] [facility] Family Medicine [address] [place] [address] ProviderAbdiel MD [address] [place] [id number] Social History Tobacco Use Types Packs/Day Years [...] On: 04/13/2020 11:00 EDT by MAYNOR SEXTON Rn-Acquisitions Logistics Analyst Final Discharge Planning Transportation Needs : Family/Friend [...] : Yes Discharge To Care Management : Home/Residential/[facility]ci or Self Care -01 MAYNOR SEXTON Rn-Acquisitions Logistics Analyst - 04/13/2020 11:10 EDT documented in this encounter Plan of Treatment Not on file documented as of this encounter Visit Diagnoses Not on filedocumented in this encounter
--- OUTSIDE RECORDS SUMMARY | 2025-01-10 09:28 | XMS_ITS | Encounter Summary ---
Author Organization [employer] ([place], [place], [place], [place]) Address [address] [place] [address] Care Team Providers Care Ranch Helper Name Role Phone Unavailable Primary Care Provider Unavailabl e Encounter Details Date Type Department Care Team (Late st Contact Info) Description 04/13/2020 Transcribed Document [facility] Family Medicine [address] [place] [address] ProviderAbdiel MD [address] [place] [address] Social History Tobacco Use Types Packs/Day Years Used Date Smoking Tobacco: Never Assessed Comments Unknown Sex and Gender Information Value Date Recorded Sex Assigned at Not on file Legal Sex Female 5:08 PM CDT Gender Identity Not on file Sexual Orientation Not on file documented as of this encounter Miscellaneous Notes * Cerner Conversion Note - Abdiel ProviderMD - 04/13/2020 11:34 AM CDT Nursing Discharge Summary Entered On: 04/13/2020 11:34 EDT Performed On: 04/13/2020 11:34 EDT by CARROLL ROMERO, cement finisher apprentice Documentation Discharge Date/Time : 04/13/2020 11:30 EDT Patient Disposition, General : Discharge Discharge To : Home with ambulatory/outpatient follow-up Education Comment : CARROLL Garnett, RN - 04/13/2020 11:34 EDT documented in this encounter Plan of Treatment Not on file documented as of this encounter Visit Diagnoses Not on filedocumented in this encounter
--- OUTSIDE RECORDS SUMMARY | 2025-01-10 09:28 | XMS_ITS | Encounter Summary ---
Author Organization [employer] ([place], [place], [place], [place]) Address [address] [place] [address] Care Team Providers Care Manager Fixed Income Name Role Phone Unavailable Primary Care Provider Unavailabl e Encounter Details Date Type Department Care Team (Late st Contact Info) Description 04/13/[address] [facility] [place] Family Medicine [address] [place] [address] ProviderAbdiel MD [address] [place] [address] Social History Tobacco Use Types Packs/Day Years Used Date Smoking Tobacco: Never Assessed Comments Unknown Sex and Gender Information Value Date Recorded Sex Assigned at Not on file Legal Sex Female 5:08 PM CDT Gender Identity Not on file Sexual Orientation Not on file documented as of this encounter Miscellaneous Notes * Cerner Conversion Note - Abdiel ProviderMD - 04/13/2020 9:40 AM CDT [facility] [place] [address] MICHAELLE LEONARD :1960 Visit Time:04/11/2020 Your [...] been made Where: [address] [place] [address]- Follow Up with RUSSELL GARCIA NP-FAM When 04/24/2020 10:30 AM EDT Comments Appointment has been made Where: [address] [place] [address]- Medications What How Much When Instructions Next [...] including vitamins, herbs, eye drops, creams, and kzvq-jcq-jpquzzs medicines. ??? Any problems you or family [...] 06/06/2003 Document Revised: 05/29/2018 Document Reviewed: 12/20/2016 [employer] Patient Education ?? 2020 [employer], a Division of [employer]. Electrophysiology Study An electrophysiology (EP) study is [...] including vitamins, herbs, eye drops, creams, and mldu-aoo-afxkjnc medicines. ??? Any problems you or family [...] 12/04/2010 Document Revised: 02/06/2017 Document Reviewed: 12/23/2016 [employer] Patient Education ?? 2020 [employer], a Division of [employer]. Atrial Fibrillation Atrial fibrillation is a type [...] these instructions at home: Medicines ??? Take buam-xrj-qvxttlc and prescription medicines only as told by [...] 03/25/2009 Document Revised: 08/20/2018 Document Reviewed: 08/07/2018 [employer] Patient Education ?? 2020 [employer]. pantoprazole (oral/injection) (owen TOE pra zole) [...] a broken bone while taking this medicine intermodal customer service or more than once per day. What [...] may report side effects to FDA at 3-212-OTY-0410. What other drugs will affect pantoprazole? Tell your doctor about all your other medicines, especially: ?? digoxin; ?? methotrexate; or ?? a diuretic or 'water pill.' This list is not complete. Other drugs may affect pantoprazole, including prescription and yvgs-kag-vpmunhv medicines, vitamins, and herbal products. Not all [...] to ensure that the information provided by [employer]. ('[employer]') is accurate, up-to-date, and complete, but no guarantee is made to that effect. Drug information contained herein may be time sensitive. [employer] information has been compiled for use by healthcare practitioners and consumers in the [place] and therefore [employer] does not warrant that uses outside of the [place] are appropriate, unless specifically indicated otherwise. [employer]'s drug information does not endorse drugs, diagnose patients or recommend therapy. [facility] drug information is an informational resource designed [...] effective or appropriate for any given patient. [facility] does not assume any responsibility for any aspect of healthcare administered with the aid of information [facility] provides. The information contained herein is not intended to cover all possible uses, directions, precautions, warnings, drug interactions, allergic reactions, or adverse effects. If you have questions about the drugs you are taking, check with your doctor, nurse or pharmacist. Copyright 7133-0962 [employer]. Version: 19.02. Revision Date: 12/23/2017. Emergency Awareness [...] Assistance with quitting is available by contacting 4-228-UJBG-NOW. This is a free resource providing counseling, [...] and 14.9 ) ANC #: 8 K/uL Nye Percent Man: 3 % -- Normal range [...] range between ( 0.0 and 7.0 ) Nye #: 0.60 K/uL -- Normal range between ( 0.16 and 1.00 ) Eos #: 0.12 x10(3)/uL -- Normal range between ( 0.00 and 0.80 ) Nye %: 5.3 % -- Normal range between [...] was given the opportunity to ask questions. Patient/Carbon Dioxide Operator Name: Patient/Carbon Dioxide Operator Signature: Relationship to Patient: Clinician/Hospital Carbon Dioxide Operator Signature: Date: Electronically signed by Jose, Azam Conversion Head Insulation Board Saw Operator Cerner at 10/15/2022 5:26 PM CDT documented in this encounter Plan of Treatment Not on file documented as of this encounter Visit Diagnoses Not on filedocumented in this encounter
--- OUTSIDE RECORDS SUMMARY | 2025-01-10 09:28 | XMS_ITS | Encounter Summary ---
Author Organization [employer] ([place], [place], [place], [place]) Address [address] [place] [address] Care Team Providers Care Printer Slotter Operator Name Role Phone Unavailable Primary Care Provider Unavailabl e Encounter Details Date Type Department Care Team (Late st Contact Info) Description 04/13/2020 Transcribed Document [facility] [place] [facility] [place] [address] ProviderAbdiel MD [address], [place] [address] Social History Tobacco Use Types Packs/Day Years [...] Allergies (1) Active Reaction Supartz None Documented [facility] EP Discharge Summary: Primary Boiler House Inspector: Dr. Hernandez PCP: Saundra Angel Consults: [...] monitor study about three months ago at [facility] when she was diagnosed with PAF. [...] 39.4 (APR 12) 36.7 (MAR 14) 40.3 (MAR 13) Plt 263 (MAR 14) 249 (MAR 14) [...] addressed. Followup Appointments: PCP as scheduled Primary Boiler House Inspector as scheduled EP in 1 month Patient has been instructed on and verbalized an understanding of the above discharge instructions. Plan has been discussed and is in agreement with Dr. Jean-Baptiste documented in this encounter Plan of Treatment Not on file documented as of this encounter Visit Diagnoses Not on filedocumented in this encounter
--- OUTSIDE RECORDS SUMMARY | 2025-01-10 09:28 | XMS_ITS | Encounter Summary ---
Author Organization [facility] Address [address] [place] [address] Care Team Providers Care Steam And Power Superintendent Name Role Phone Ulises Judd MD Primary Care Provider [phone] Reason for Visit * Reason Comments Med Refill Encounter Details Date Type Department Care Team (Late st Contact Info) Description 05/20/2024 Refill [place] [facility] [address] [place] [address] Trino Trevizo MD [address] [place] [address] Status post cervical spinal fusion [...] drink first t inna in the morning (EYE-HEALTH AND WELLNESS COACH) to steady your nerves or to get [...] Visit [place] [facility] [address] [place] [address] Trino Trevizo MD [address] [place] [address] documented as of this encounter [...] documented as of this encounter Care Teams Steam And Power Superintendent Relationship Specialty Start Date End Date Ulises Judd MD [address] [place], [place] [id number] PCP - General 07/27/21 documented as of this encounter
--- OUTSIDE RECORDS SUMMARY | 2025-01-10 09:28 | XMS_ITS | Encounter Summary ---
Author Organization [employer] ([place], [place], [place], [place]) Address [address] [place] [address] Care Team Providers Care Salvage Laborer Name Role Phone Unavailable Primary Care Provider Unavailabl e Encounter Details Date Type Department Care Team (Late st Contact Info) Description 04/18/2020 Transcribed Document [facility] [place] [address] [place] [address] ProviderAbdiel MD [address] [place] [address] Social History Tobacco Use Types [...] was completed are indicated below: Significant Changes: documented in this encounter Plan of Treatment Not on file documented as of this encounter Visit Diagnoses Not on filedocumented in this encounter
--- OUTSIDE RECORDS SUMMARY | 2025-01-10 09:28 | XMS_ITS | Encounter Summary ---
Author Organization [facility] Address [address] [place] [address] Care Team Providers Care Nuclear Medicine Chief Technologist Name Role Phone Ulises Judd MD Primary Care Provider [phone] Reason for Visit * Reason Comments Med Refill Encounter Details Date Type Department Care Team (Late st Contact Info) Description 04/20/2024 Refill [place] [facility] [address] [place] [address] Trino Trevizo MD [address] [place] [address] Status post cervical spinal fusion [...] drink first t inna in the morning (EYE-VENTILATING EQUIPMENT INSTALLER) to steady your nerves or to get [...] Description 03/21/2025 4:00 PM EDT Office Visit [place] [facility] [address] [place] [address] Trino Trevizo MD [address] [facility] [address] [place] [address] documented as of this encounter [...] as of this encounter Care Teams Nuclear Medicine Chief Technologist Relationship Specialty Start Date End Date Ulises Judd MD [address] [place] [address] PCP - General 07/27/21 documented as of this encounter
--- OUTSIDE RECORDS SUMMARY | 2025-01-10 09:28 | XMS_ITS | Encounter Summary ---
Author Organization [employer] ([place], [place], [place], [place]) Address [address] [place] [address] Care Team Providers Care Lumber Tallier Name Role Phone Unavailable Primary Care Provider Unavailabl e Encounter Details Date Type Department Care Team (Late st Contact Info) Description 04/13/2020 Transcribed Document [facility] [place] [address] [place] [address] ProviderAbdiel MD [address], [place] [id number] Social History Tobacco Use Types Packs/Day Years Used Date Smoking Tobacco: Never Assessed Comments Unknown Sex and Gender Information Value Date Recorded Sex Assigned at Not on file Legal Sex Female 5:08 PM CDT Gender Identity Not on file Sexual Orientation Not on file documented as of this encounter Miscellaneous Notes * Cerner Conversion Note - Abdiel ProviderMD - 04/13/2020 9:39 AM CDT Patient Education [...] including vitamins, herbs, eye drops, creams, and xwhz-lby-imzzhcu medicines. ??? Any problems you or family [...] 06/06/2003 Document Revised: 05/29/2018 Document Reviewed: 12/20/2016 [employer] Patient Education ? 2020 [employer]. Atrial Fibrillation Atrial fibrillation is a [...] these instructions at home: Medicines ??? Take dnyp-pnh-epafypq and prescription medicines only as told by [...] 03/25/2009 Document Revised: 08/20/2018 Document Reviewed: 08/07/2018 [employer] Patient Education ? 2020 [employer]. Radiology Electrophysiology Study An electrophysiology (EP) study [...] including vitamins, herbs, eye drops, creams, and erxb-zkf-zpxahul medicines. ??? Any problems you or family [...] 12/04/2010 Document Revised: 02/06/2017 Document Reviewed: 12/23/2016 [employer] Patient Education ? 2020 [employer]. documented in this encounter Plan of Treatment Not on file documented as of this encounter Visit Diagnoses Not on filedocumented in this encounter
--- NOTE | 2025-01-10 09:37 | EXP.PAIN.SOA ---
[facility] Disclaimer: The information contained in this section may have been updated after the patient was seen, as this information can be updated by other users. 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 intermediate current use of anticoagulant Epistaxis not due to trauma URI (upper respiratory infection) Epistaxis Right ankle pain Right foot pain Low back pain Drug overdose Renal insufficiency Accidental drug ingestion Morbid obesity Abnormal stress test Abnormal electrocardiography Dyspnea Surgical History Hx of cholecystectomy H/O spinal fusion H/O shoulder surgery H/O knee surgery H/O: hysterectomy Family History Other No significant family history Social History Smoking Status: Light tobacco smoker second hand exposure: No alcohol intake: never substance use type: denies use current occupational status: other Travel in the last 8 weeks?: None household members: spouse housing: house current occupational exposures/hazards: No caffeine: Yes Have you lived/traveled outside US in past 30 days?: No Contact w/someone who lives/traveled outside US past 30 days?: No Exposure to someone with infectious disease in past 14 days?: No Do you have a fever (greater than 100.4 F or 38 C)?: No Have you tested positive for COVID-19?: No Exposed to someone with COVID-19 in past 14 days?: No Do you have a sore throat?: No Do you have a cough?: No Do you have any weakness?: No Do you have any diarrhea?: No Are you experiencing any unusual bleeding?: No Do you have any muscle aches/pain?: No Do you have any abdominal pain?: No Are you experiencing loss of taste or smell?: No PM Subjective & Objective Subjective Subjective:: Patient is a pleasant 64-year-old female who presents today for her monthly medication refill. Today she rates her pain a 7 out of 10. She denies any new trauma or injury. Patient is currently managed with [place] 10 mg 3 times a day, baclofen 10 mg 3 times a day from our office and pregabalin from an outside provider. Her Tavo has been reviewed and is appropriate. Review of Systems: General: No recent weight changes, no fever, no sleep disturbances Respiratory: No cough, no shortness of air, no recurring pulmonary infections Cardiovascular/peripheral vascular: No chest pain, no palpitations, no edema, no shortness of breath Gastrointestinal: No new onset incontinence, normal bowel movements reported Genitourinary: No new onset incontinence Musculoskeletal: Chronic back pain Psychiatric: [Normal mood/affect] Neurological: [Denies weakness in extremities], [denies balance issues] Pain at rest (0-10 scale): 7 Objective Objective:: Physical Exam: General: Alert and oriented x3, no acute distress, pleasant and cooperative Lungs: Respirations even and unlabored, symmetrical chest expansion Eyes: PERRL Musculoskeletal: Flexion and extension of cervical [spine] somewhat guarded secondary to pain, [antalgic gait noted] Neurological: Speech clear, no gross sensory deficit Has patient had previous pain injection?: No Conservative treatment options previously tried: Prescription medications Length of treatment: Longer than 12 weeks Meds Home Medications and Allergies Home Medications ?Medication ?Instructions ?Recorded ?Confirmed ?Type pantoprazole 40 mg tablet,delayed 40 mg PO DAILY 05/28/20 12/09/24 History release potassium chloride 10 mEq 10 meq PO BID 05/17/21 12/09/24 History capsule,extended release nitroglycerin 0.4 mg sublingual 0.4 mg sublingual Q5-15M PRN chest 04/29/23 12/09/24 Rx tablet pain #30 tabs cyanocobalamin (vitamin B-12) 500 500 mcg PO WEEKLY 06/11/23 12/09/24 History mcg tablet bumetanide 1 mg tablet 1 mg PO BID 12/30/23 12/09/24 History levothyroxine 150 mcg capsule 150 mcg PO DAILY #30 caps 06/14/24 12/09/24 Rx cefdinir 300 mg capsule 300 mg PO BID #20 caps 07/01/24 12/09/24 Rx methocarbamol 750 mg tablet 750 mg PO Q6H PRN muscle spasm #20 09/24/24 12/09/24 Rx tabs baclofen 10 mg tablet 10 mg PO TID #90 tabs 11/11/24 12/09/24 Rx benzonatate 100 mg capsule 100 mg PO TIDP PRN Cough 12/07/24 12/09/24 History metoprolol succinate 25 mg 25 mg PO DAILY 12/07/24 12/09/24 History tablet,extended release 24 hr pramipexole 1 mg tablet 1 mg PO TID 12/07/24 12/09/24 History rivaroxaban 20 mg tablet 20 mg PO DAILY 12/07/24 12/09/24 History venlafaxine 150 mg tablet,extended 150 mg PO DAILY PRN Mood 12/07/24 12/09/24 History release 24 hr hydrocodone 10 mg-acetaminophen 1 tab PO TID #90 tabs 12/22/24 Rx 325 mg tablet New Prescriptions to Start Prescriptions: Allergies Allergy/AdvReac Type Severity Reaction Status Date / Time gabapentin Allergy Verified 12/07/24 08:41 hyaluronic acid (From AdvReac Severe Verified 12/07/24 08:41 Supartz) Assessment and Plan *Assessment and plan (1) Degenerative disc disease, cervical: Status: Acute Category: Medical Code(s): M50.30 - Other cervical disc degeneration, unspecified cervical region (2) Neck pain: Status: Acute Category: Medical Code(s): M54.2 - Cervicalgia (3) Degenerative joint disease (DJD) of lumbar spine: Status: Chronic Qualifiers: Spinal osteoarthritis complication: with radiculopathy Qualified Code(s): M47.26 - Other spondylosis with radiculopathy, lumbar region Category: Medical Code(s): M47.816 - Spondylosis without myelopathy or radiculopathy, lumbar region (4) Lumbar radiculopathy: Status: Chronic Category: Medical Code(s): M54.16 - Radiculopathy, lumbar region Plan I will refill her baclofen and [place] and provide a 1 month supply of these medications. We did discuss her follow-up from neurosurgery. Patient states that he was not recommending any cervical surgery and that there seemed to be no problems with her hardware that is in place. He did however think there was a possibility that he could do something for her chronic low back however he is wanting her to start physical therapy first. We will continue to follow-up on this. We did also discuss today the possibility of additional injections and/or a intrathecal pain pump trial. Risk and benefits were discussed with the patient. I did parliamentary counsel her that the only thing I would need at this time would be the psychological evaluation. Patient would like time to think on it and let us know. Patient will return to clinic in 1 month. Risks and benefits of the medication have been explained in detail to the patient. The patient does understand the risk of dependence on the medication when given over a prolonged period. Patient has been advised of risks of oversedation with the prescribed medication. Narcan has been offered to the paitent in the event of oversedation. Patient has been advised that a family member should also be educated regarding administration of Narcan. The patient has been advised to consult with his/her primary care provider and pharmacist regarding drug-drug interaction of medications currently prescribed. Patient has been prescribed a controlled substance after being counseled on the medication, medication safety, and possible side effects. Opioid contract was reviewed and signed by the patient, and that they have agreed to all of the terms set forth by our compliance program. A UDS is needed to verify patient's compliance with our office pain contract. This is ordered based off specific treatments related to chronic pain with the potential to abuse certain medications. Patient has been instructed to contact the clinic with any concerns before the next appointment. Dr. Barnett has reviewed this note and agrees with this plan of care. This note was dictated using voice recognition software and make contain errors or omissions.
[2025-01-10 09:39] VITALS: BP 115/56; PULSE 61; RESP 14; O2SAT 100; BMI 38.2
--- OUTSIDE RECORDS SUMMARY | 2025-01-10 10:27 | XMS_ITS | CCD ---
Author Organization Unknown Care Team Providers Care Nanosystems Engineer Name Role Phone Non Engaged, [facility] Primary Care Provider Unav ailable Unavailable Chronic Care Management Unavaila ble Summary Purpose DataExchange Insurance Providers Payer name Policy type / Coverage type Covered republican ID Effective Begin Date Effective End Date [facility] [id number] Unknown Unknown Family History Family History data not found Medication Administered No Medication Administered data Reason For Visit No Reason For Visit data Medical Equipment No Medical Equipment data Advance Directives No Advance Directive data
--- OUTSIDE RECORDS SUMMARY | 2025-01-10 10:27 | XMS_ITS | CCD ---
Author Organization Unknown Care Team Providers Care Step Down Specialist Name Role Phone Non Engaged, [facility] Primary Care Provider Unav ailable Unavailable Chronic Care Management Unavaila ble Summary Purpose [employer]Exchange Insurance Providers Payer name Policy type / Coverage type Covered republican ID Effective Begin Date Effective End Date [facility] [id number] Unknown Unknown Family History Family History data not found Medication Administered No Medication Administered data Reason For Visit No Reason For Visit data Medical Equipment No Medical Equipment data Advance Directives No Advance Directive data
== END 2025-01-10 23:59 | disposition home or self-care (01) ==
PROVIDERS: PCP Family Medicine; Visit Provider Nurse Practitioner Family
DX: M50.30 Other cervical disc degeneration, unspecified cervical region (principal); M47.26 Other spondylosis with radiculopathy, lumbar region
CPT/HCPCS: 99212; G0463

== ENCOUNTER 2025-02-10 10:23 | Outpatient (POV) | payer MEDICARE, SELFPAY ==
--- OUTSIDE RECORDS SUMMARY | 2025-01-03 15:30 | XMS_ITS | Encounter Summary ---
Author Organization [facility] Address [address] [place] [address] Care Team Providers Care Varnisher Apprentice Name Role Phone Ulises Judd MD Primary Care Provider [phone] Reason for Referral * Imaging (Urgent) - Authorized Specialty Diagnoses / Procedures Referred By Contac t Referred To Contact Diagnoses Lumbar spondylosis Lumbar radiculopathy Spinal stenosis of lumbar region with neurogenic claudication Degeneration of intervertebral disc of lumbar region with discogenic back pain and lower extremity pain Procedures CT Lumbar Spine wo IV Contrast Brittni Miller PA [address] [address] Phone: tel: fax: [facility] () [address] [place] [address] Phone: tel: fax: Referral ID Status Reason Start Date Expiration Date V isits Requested Visits Authorized [id number] Authorized 01/03/2025 07/05/2026 1 1 * Consultation (Routine) - Authorized Specialty Diagnoses / Procedures Referred By Contac t Referred To Contact Physical Therapy Diagnoses Lumbar spondylosis Lumbar radiculopathy Brittni Miller PA [address] [address] Phone: tel: fax: Referral ID Status Reason Start Date Expiration Date Visits Requested Visits Authorized [id number] Authorized Consult and Treat 01/03/2025 07/05/2026 1 1 Encounter Details Date Type Department Care Team (Latest Contact Info) Description 01/03/2025 3:30 PM EDT [facility] Visit [facility] [address], [address] [place] [address] Trino Trevizo MD [address] [place] [address] Lumbar spondylosis (Primary Dx); Lumbar [...] drink first t inna in the morning (EYE-CADDY PACKER) to steady your nerves or to get [...] both hands, and lower back pain with modz-scssxrc-pwej right lower extremity pain with associated with [...] in physical therapy in the past without game agent benefit. She is status post injection therapy [...] medical history of Arrhythmia, Arthritis, Atrial fibrillation ([facility]), CKD (chronic kidney disease) stage 3, GFR 30-59 ml/min ([facility]), Depression, GERD (gastroesophageal reflux disease), Hypertension, Hypothyroid, Migraines, Nasal septum perforation, Obesity (1989), Osteoarthritis (10/20), PONV (postoperative nausea and vomiting), Seizures ([facility]) (11/14/2018), and Thoracic spinal cord injury ([facility]) (08/25/2022). Surgical History She has [...] extension (Triceps) 11/01 11/01 C8: Finger flexion (Siphon Operator Strength) 10/02 10/02 T1: Finger abduction 11/01 [...] We will request imaging be completed at [facility]. In the meantime, we have referred the [...] of care for this patient. The total dcal-oh-myrc time spent on this visit was greater than 30 minutes, with the majority (>50%) of the time spent in counseling, discussing pathology and management options, and coordination of care. Parts of this note were dictated using Roomish Direct voice recognition software. As a result, errors may occur. When identified, these size tester errors are corrected, but while every attempt is made to prevent/correct these, errors may still exist. Assessment/Plan Active Problems: There are no active Hospital Problems. Brittni Miller PA-C [facility] [place] Department of Neurosurgery [1] Family History Problem [...] mouth 1 (one) time each day. B Gmthddm-Mdgevg-WP ( VITAMIN B 50/B-COMPLEX PO) Take 1 tablet by mouth 1 (one) time each day. baclofen (Lioresal) 10 MG tablet 1 tablet. bumetanide (Bumex) 1 MG tablet Take by mouth 1 (one) time each day. cyanocobalamin (Vitamin B-12) 500 MCG tablet Take 1 tablet (500 mcg) by mouth 1 (one) time each day. HYDROcodone-acetaminophen (Amboy) 10-325 MG tablet TAKE ONE TABLET BY [...] (Patient not taking: Reported on 01/03/2025) HYDROcodone-acetaminophen (Amboy) 7.5-325 MG tablet Take 1 tablet by [...] Description 03/21/2025 4:00 PM EDT [facility] [address], 1[address] [place] [address] Trino Trevizo MD [address] [facility] [address] [place] [address] Scheduled Orders Name Type Priority [...] documented as of this encounter Care Teams Varnisher Apprentice Relationship Specialty Start Date End Date Ulises Judd MD [address] [place] [address] PCP - General 07/27/21 documented as of this encounter
--- OUTSIDE RECORDS SUMMARY | 2025-01-25 17:00 | XMS_ITS | Encounter Summary ---
Author Organization [facility] Address [address] [place] [address] Care Team Providers Care Residential Property Manager Name Role Phone Ulises Judd MD Primary Care Provider + Reason for Visit * Reason Comments Other Right leg redness, p ain Encounter Details Date Type Department Care Team (Late st Contact Info) Description 01/25/2025 5:00 PM EDT Telemedicine [facility] [address] [address] Alyssa Cerda APRN [address] [facility] [address] [place] [address] Cellulitis of right lower extremity [...] sent through Care Everywhere. * Cellulitis Adult [id number] (Senegalese) documented in this encounter Progress Notes * [...] CERVICAL CORPECTOMY WITH FUSION 07/2022 Dr. Trevizo, [facility] Neurosurgery SECTION 02/1984 CHOLECYSTECTOMY 2002 COLONOSCOPY 2019 [...] or diaphoretic. HENT: Head: Normocephalic. Mouth/Throat: Lips: [place]. Mouth: Mucous membranes are moist. Pulmonary: Effort: [...] Mode of Visit: Video Location of patient: Other-[facility] Location of provider: +HOME+ You have [...] Primary documented in this encounter Care Teams Residential Property Manager Relationship Specialty Start Date End Date Ulises Judd MD [address] [place] [address] PCP - General Family Medicine 10/11/21 documented as of this encounter
--- OUTSIDE RECORDS SUMMARY | 2025-01-27 12:45 | XMS_ITS | Encounter Summary ---
Author Organization [facility] Address [address] [place] [address] Care Team Providers Care Environmental Studies Professor Name Role Phone Ulises Judd MD Primary Care Provider + Reason for Visit * Reason Comments Blister Popped and has green ivy drainage located on right lateral calf Upper Extremity Issue Swelling in right hand Encounter Details Date Type Department Care Team (Late st Contact Info) Description 01/27/2025 12:45 PM EDT Office Visit [facility] [address] [place] [address] Judy Friend, PA-C [address] [place] [address] Cellulitis of right lower extremity (Primary Dx); Right wrist pain; Essential hypertension Social History Tobacco Use Types Packs/Day Years [...] AM EDT documented as of this encounter Last Filed Vital Signs Vital Sign Reading Time Taken Comments Blood Pressure 100/60 01/27/2025 12:46 PM EDT Pulse 60 01/27/2025 12:46 PM EDT Temperature 36.9 C (98.4 F) 01/27/2025 12:46 PM EDT Respiratory Rate 16 01/27/2025 12:46 PM EDT Oxygen Saturation - - Inhaled Oxygen Concentration - - Weight 100 kg (221 lb) 01/27/2025 12:46 PM EDT Height 170.2 cm (5' 7.01 ) 01/27/2025 12:46 PM E DT Body Mass Index 34.61 01/27/2025 12:46 PM EDT documented in this encounter Progress Notes * Judy Friend PA-C - 01/27/2025 2:16 PM EDTAssociated Problem(s): Right wrist pain Patient should avoid symptoms that worsen pain Can apply ice to the affected area and take OTC medications as needed for symptomatic relief Keep the area wrapped when able and can sleep in wrist brace to avoid worsening symptoms Patient should contact office if symptoms have not improved in 7 days to discuss the need for potential imaging * Judy Friend PA-C - 01/27/2025 2:12 PM EDTAssociated Problem(s): Cellulitis of right lower extremity Initiate Bactrim and complete as prescribed Advised patient to keep the area clean and dry Patient can take an extra diuretic for the next 5-7 days as long as she is able to tolerate to decrease lower extremity edema Return if symptoms worsen or fail to improve * Judy Friend PA-C - 01/27/2025 12:45 PM EDT Images from the original note were not included. Office Note Name: Sue Wood : 1960 Chief Complaint Blister (Popped and has greenish drainage located on right lateral calf /) and Upper Extremity Issue (Swelling in right hand) Subjective History of Present Illness: Sue Wood is a 64 y.o. female who presents today with complaints of a sore on her right leg. She noticed the area on Friday night. The area was painful, but then the area opened and drained green fluid. The area since then has not been painful. Past medical history is significant for lower extremity edema which has worsened over the last week due to recent travelling. Denies any discharge recently, fevers, injury to the leg, and recent open wounds. Did meet with someone on Telehealthand was prescribed Bactrim, has not started the medication yet as she wanted to wait until this appointment. Also complains of recent wrist pain that began on Friday. Denies injury. Admits to swelling. Pain is worse with range of potion. Does have a history of arthritis. Has been wrapping the wrist with a bandage which seems to help some. No other complaints or concerns. Past Medical History: Past Medical History: Diagnosis Date Arthritis 1990 [...] them all my life Past Surgical History: Past Surgical History: Procedure Laterality Date BARIATRIC SURGERY 04/2009 CARDIAC CATHETERIZATION CERVICAL CORPECTOMY WITH FUSION 07/2022 Dr. Trevizo, [facility] Neurosurgery SECTION 02/1984 CHOLECYSTECTOMY 2002 COLONOSCOPY 2019 HERNIA REPAIR 04/2009 Was done during barbaric bypass HYSTERECTOMY 1993 JOINT REPLACEMENT 2019 KNEE ARTHROPLASTY Left 03/15/2022 SINUS SURGERY 08/19/2021 Had to remove a mass behind my TUBAL ABDOMINAL LIGATION 1991 Immunizations: Immunization History Administered Date(s) Administered COVID-19 (MODERNA) 1st,2nd,3rd Dose Monovalent 11/10/2020, 12/08/2020 Fluzone (or Fluarix & Flulaval for VFC) >6mos 04/30/2022, 05/27/2023 H1N1 Inj 04/28/2009 Pneumococcal Conjugate 20-Valent (PCV20) 09/18/2023 Medications: Current Outpatient Medications: albuterol sulfate HFA 108 (90 Base) MCG/ACT inhaler, Inhale 2 puffs Every 4 (Four) Hours As Needed for Wheezing., Disp: 18 g, Rfl: 1 alendronate (FOSAMAX) 70 MG tablet, TAKE ONE TABLET BY MOUTH ONCE a WEEK, Disp: 4 tablet, Rfl: 11 baclofen (LIORESAL) 10 MG tablet, Take 1 tablet by mouth 3 (Three) Times a Day., Disp: , Rfl: bumetanide (BUMEX) 1 MG tablet, Take 1 tablet by mouth Daily., Disp: 30 tablet, Rfl: 0 GNP Vitamin B-12 500 MCG tablet, TAKE [...] EVERY DAY, Disp: 90 tablet, Rfl: 3 potassium chloride (MICRO-K) 10 MEQ CR capsule, [...] tablet by mouth Daily., Disp: , Rfl: amoxicillin (AMOXIL) 500 MG capsule, Take 1 capsule by mouth 3 (Three) Times a Day. (Patient not taking: Reported on 01/27/2025), Disp: 21 capsule, Rfl: 0 Allergies: Allergies Allergen Reactions Cross-Linked Hyaluronate Anaphylaxis and Other (See Comments) Vital signs bottomed out. Gabapentin Hallucinations Family History: Family History Problem Relation Age of Onset Arthritis Mother Depression Mother Thyroid disease Mother Alcohol abuse Maternal Grandfather Alcohol abuse Maternal Grandmother Depression Maternal Grandmother Arthritis Maternal Aunt Depression Maternal Aunt Diabetes Maternal Aunt Thyroid disease Maternal Aunt Depression Brother Arthritis Maternal Aunt Depression Maternal Aunt Diabetes Maternal Aunt Thyroid disease Maternal Aunt Depression Brother Social History: Social History Socioeconomic History Marital status: Tobacco [...] Currently Partners: Male control/protection: Post-menopausal, None, Hysterectomy Objective Vital Signs BP 100/60 Pulse 60 Temp 98.4 ??F (36.9 ??C) Resp 16 Ht 170.2 cm (67.01 ) Wt 100 kg (221 lb) BMI 34.61 kg/m?? Estimated body mass index is 34.61 kg/m?? as calculated from the following: Height as of this encounter: 170.2 cm (67.01 ). Weight as of this encounter: 100 kg (221 lb). Physical Exam Vitals and nursing note reviewed. Constitutional: Appearance: Normal appearance. HENT: Head: Normocephalic and atraumatic. Cardiovascular: Rate and Rhythm: Normal rate and regular rhythm. Heart sounds: No murmur heard. No friction rub. No gallop. Pulmonary: Effort: Pulmonary effort is normal. Breath sounds: Normal breath sounds. No wheezing, rhonchi or rales. Skin: General: Skin is warm and dry. Findings: Erythema and wound present. Neurological: General: No focal deficit present. Mental Status: She is alert and oriented to person, place, and time. Psychiatric: Mood and Affect: Mood normal. Behavior: Behavior normal. Assessment and Plan Diagnoses and all orders for this visit: 1. Cellulitis of right lower extremity (Primary) Assessment & Plan: Initiate Bactrim and complete as prescribed Advised patient to keep the area clean and dry Patient can take an extra diuretic for the next 5-7 days as long as she is able to tolerate to decrease lower extremity edema Return if symptoms worsen or fail to improve 2. Right wrist pain Assessment & Plan: Patient should avoid symptoms that worsen pain Can apply ice to the affected area and take OTC medications as needed for symptomatic relief Keep the area wrapped when able and can sleep in wrist brace to avoid worsening symptoms Patient should contact office if symptoms have not improved in 7 days to discuss the need for potential imaging 3. Essential hypertension Comments: Refill antihypertensives. Renal function normal Orders: - bumetanide (BUMEX) 1 MG tablet; Take 1 tablet by mouth Daily. Dispense: 30 tablet; Refill: 0 Follow Up No follow-ups on file. ARABELLA [place] [facility] [address] [facility] [address] documented in this encounter Plan of Treatment Not on file documented as of this encounter Visit Diagnoses Diagnosis Cellulitis of right lower extremity- Primary Right wrist pain Pain in joint, forearm Essential hypertension Unspecified essential hypertension documented in this encounter Care Teams Environmental Studies Professor Relationship Specialty Start Date End Date Ulises Judd MD [address] [place] [address] PCP - General Family Medicine 10/11/21 documented as of this encounter
--- OUTSIDE RECORDS SUMMARY | 2025-02-10 10:28 | XMS_ITS | Encounter Summary ---
Author Organization [facility] Address [address] [place] [address] Care Team Providers Care Supervisor Vegetable Farming Name Role Phone Ulises Judd MD Primary Care Provider [phone] Reason for Visit * Reason Comments Med Refill Encounter Details Date Type Department Care Team (Late st Contact Info) Description 02/28/2023 Refill [place] [facility] [address], [address] [place] [address] Trino Trevizo MD [address] [place] [address] Cervical myelopathy with cervical radiculopathy [...] drink first t inna in the morning (EYE-ACCOUNT CONSULTANT) to steady your nerves or to [...] Description 03/21/2025 4:00 PM EDT Office Visit [place] [facility] [address], [address] [place] [address] Trino Trevizo MD [address] [facility] [address] [place] [address] documented as of this encounter [...] documented as of this encounter Care Teams Supervisor Vegetable Farming Relationship Specialty Start Date End Date Ulises Judd MD [address] [place] [address] PCP - General 07/27/21 documented as of this encounter
--- OUTSIDE RECORDS SUMMARY | 2025-02-10 10:28 | XMS_ITS | Encounter Summary ---
Author Organization [facility] Address [address] [place] [address] Care Team Providers Care Public Information Specialist Name Role Phone Ulises Judd MD Primary Care Provider [phone] Reason for Visit * Reason Comments Med Refill Encounter Details Date Type Department Care Team (Late st Contact Info) Description 04/20/2024 Refill [place] [facility] [address], 1[address] [place] [address] Trino Trevizo MD [address] [place] [address] Status post cervical spinal fusion [...] drink first t inna in the morning (EYE-TRUSS MAKER) to steady your nerves or to get [...] Description 03/21/2025 4:00 PM EDT Office Visit [place] [facility] [address], [address] [place] [address] Trino Trevizo MD [address] [facility] [address] [place] [address] documented as of this encounter [...] documented as of this encounter Care Teams Public Information Specialist Relationship Specialty Start Date End Date Ulises Judd MD [address] [place] [address] PCP - General 07/27/21 documented as of this encounter
--- OUTSIDE RECORDS SUMMARY | 2025-02-10 10:28 | XMS_ITS | Encounter Summary ---
Author Organization [facility] Address [address] [place] [address] Care Team Providers Care Vp Marketing Name Role Phone Ulises Judd MD Primary Care Provider [phone] Reason for Visit * Reason Comments Med Refill Encounter Details Date Type Department Care Team (Late st Contact Info) Description 11/21/2023 Refill [place] [facility] [address], 1[address] [place] [address] Trino Trevizo MD [address] [place] [address] Status post cervical spinal fusion [...] drink first t inna in the morning (EYE-LENS EXAMINER) to steady your nerves or to [...] Description 03/21/2025 4:00 PM EDT Office Visit [place] [facility] [address], [address] [place] [address] Trino Trevizo MD [address] [facility] [address] [place] [address] documented as of this encounter [...] documented as of this encounter Care Teams Vp Marketing Relationship Specialty Start Date End Date Ulises Judd MD [address] [place] [address] PCP - General 07/27/21 documented as of this encounter
--- OUTSIDE RECORDS SUMMARY | 2025-02-10 10:28 | XMS_ITS | Clinical Summary ---
Author Organization [facility] Address [address] [place] [address] Care Team Providers Care Manager Msw Name Role Phone Ulises Judd MD Primary Care Provider + Allergies Active Allergy Reactions Criticality Noted Date Comments Cross-Linked Hyaluronate Anaphylaxis,Other (See Comments) High 05/22/2021 Vital signs bottomed out. Gabapentin Hallucinations Medium 02/12/2022 Medications Zinc 50 MG tablet Take 1 tablet by mouth Daily. 021 Active Hypertonic Nasal Wash (Sinus Rinse Bottle Kit) pack 1 application into the nostril(s) as directed by provider 3 (Three) Times a Day. 022 Active thiamine (VITAMIN B1) 50 MG tablet Take 1 tablet by mouth Daily. Active multivitamin with minerals (GNP Century Mature Women's 50+) tablet tablet Take 1 tablet by mouth Daily. Active nitroglycerin (NITROSTAT) 0.[address] 1 tablet under the tongue Every 5 (Five) Minutes As Needed for Chest Pain. 023 Active pregabalin (LYRICA) 75 MG capsule Take 1 capsule by mouth 2 (Two) Times a Day. Active alendronate (FOSAMAX) 70 MG tabletIndication s:Age-related osteoporosis without current pathological fracture TAKE ONE TABLET BY MOUTH ONCE a WEEK 4 tablet 11 024 Active pantoprazole (PROTONIX) 40 MG EC tablet TAKE ONE TABLET BY MOUTH EVERY DAY 90 tablet 3 024 Active vitamin C (ASCORBIC ACID) 500 MG tablet TAKE ONE TABLET BY MOUTH EVERY DAY 30 tablet 12 024 Active GNP Vitamin B-12 500 MCG tablet TAKE ONE TABLET BY MOUTH EVERY WEEK 4 tablet 12 024 Active venlafaxine (EFFEXOR) 150 MG tablet sustained-releas e 24 hour 24 hr tabletIndication s:Anxiety disorder, unspecified TAKE TWO TABLETS BY MOUTH EVERY DAY --TAKE WITH FOOD-- 60 tablet 5 024 Active HYDROcodone-acet aminophen (NORCO) 10-325 MG per tablet Take 1 tablet by mouth Every 6 (Six) Hours As Needed for Moderate Pain or Severe Pain. 024 Active baclofen (LIORESAL) 10 MG tablet Take 1 tablet by mouth 3 (Three) Times a Day. 025 Active topiramate (TOPAMAX) 50 MG tablet TAKE TWO TABLETS BY MOUTH TWICE DAILY 120 tablet 5 025 Active metoprolol succinate XL (TOPROL-XL) 25 MG 24 hr tabletIndication s:Essential hypertension TAKE ONE TABLET BY MOUTH EVERY DAY 90 tablet 1 025 Active methocarbamol (ROBAXIN) 750 MG tabletIndication s:Abdominal spasms Take 1 tablet by mouth 3 (Three) Times a Day As Needed for Muscle Spasms. 90 tablet 1 025 Active pramipexole (MIRAPEX) 1 MG tablet Take 1 tablet by mouth 3 times a day. 90 tablet 2 025 Active levothyroxine (SYNTHROID, LEVOTHROID) 175 MCG tablet Take 1 tablet by mouth Daily. 90 tablet 025 Active amoxicillin (AMOXIL) 500 MG capsuleIndicatio ns:Acute bronchitis and bronchiolitis Take 1 capsule by mouth 3 (Three) Times a Day. 21 capsule 025 Active Additional Information Patient not taking.Reported on 01/27/2025 albuterol sulfate HFA 108 (90 Base) MCG/ACT inhalerIndicatio ns:Acute bronchitis and bronchiolitis Inhale 2 puffs Every 4 (Four) Hours As Needed for Wheezing. 18 g 1 025 Active potassium chloride (MICRO-K) 10 MEQ CR capsuleIndicatio ns:Essential hypertension TAKE ONE CAPSULE BY MOUTH TWICE DAILY 60 capsule 3 025 Active mupirocin (BACTROBAN) 2 % ointmentIndicati ons:Cellulitis of right lower extremity Apply 1 Application topically to the appropriate area as directed 3 (Three) Times a Day. 30 g 025 Active bumetanide (BUMEX) 1 MG tabletIndication s:Essential hypertension Take 1 tablet by mouth Daily. 30 tablet 025 Active bumetanide (BUMEX) 1 MG tabletIndication s:Essential hypertension TAKE ONE TABLET BY MOUTH EVERY DAY 90 tablet 3 024 2024 Discontinued(R eorder) phenazopyridine (Pyridium) 100 MG tabletIndication s:Bladder spasm Take 1 tablet by mouth 3 (Three) Times a Day As Needed for Bladder Spasms or Dysuria. 30 tablet 025 2024 Discontinued(* Therapy completed) potassium chloride (MICRO-K) 10 MEQ CR capsuleIndicatio ns:Essential hypertension TAKE ONE CAPSULE BY MOUTH TWICE DAILY 90 capsule 025 2024 Discontinued sulfamethoxazole -trimethoprim (Bactrim DS) 800-160 MG per tabletIndication s:Cellulitis of right lower extremity Take 1 tablet by mouth 2 (Two) Times a Day for 7 days. 14 tablet 025 2024 albuterol sulfate HFA 108 (90 Base) MCG/ACT inhaler 2 puffs Every 4 (Four) Hours As Needed for Wheezing. 2024 Discontinued(D uplicate order) Active Problems Problem Noted Date Diagnosed Date Cellulitis of right lower extremity 01/27/2025 Assessment & Plan (01/27/2025 2:12 PM EDT): Initiate Bactrim and complete as prescribed Advised patient to keep the area clean and dry Patient can take an extra diuretic for the next 5-7 days as long as she is able to tolerate to decrease lower extremity edema Return if symptoms worsen or fail to improve Right wrist pain 01/27/2025 Assessment & Plan (01/27/2025 2:16 PM EDT): Patient should avoid symptoms that worsen pain Can apply ice to the affected area and take OTC medications as needed for symptomatic relief Keep the area wrapped when able and can sleep in wrist brace to avoid worsening symptoms Patient should contact office if symptoms have not improved in 7 days to discuss the need for potential imaging Age-related osteoporosis paz cobos current pathological fracture 10/10/2022 Hepatic steatosis 04/30/2022 Class 2 severe obesity due t o excess calories with serious comorbidity and body mass index (BMI) of 35.0 to 35.9 in adult 01/10/2022 Chronic daily headache 01/10/2022 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 Yonatan Euceda Acquired hypothyroidism 10/11/2021 Assessment & Plan (09/21/2024 4:36 PM EDT): Orders: TSH Comprehensive Metabolic Panel Assessment & Plan (04/30/2022 4:38 PM EDT): No refill needed today. Patient will continue levothyroxine 150 mcg daily. TSH will be repeated at return visit in 3 months Assessment & Plan (11/08/2021 1:31 PM EDT): Repeat TSH today after change in levothyroxine Essential hypertension 10/11/2021 Assessment & Plan (09/21/2024 4:36 PM EDT): Orders: Lipid Panel Comprehensive Metabolic Panel CBC (No Diff) Major depressive disorder, recurrent, mild 10/11 Chronic pain syndrome 10/11/2021 Arthritis of lumbar spine 10/11/2021 Assessment & Plan (04/30/2022 4:39 PM EDT): Patient will continue to see [facility] pain management clinic. There has been discussion of a pain pump Spinal cord stimulator status 08/03/2021 Gastroesophageal reflux disease 07/25/2021 REFUGIO (obstructive sleep apnea) 07/25/2021 Encounters Date Type Department Care Team Description 01/27/2025 12:45 PM EDT Office Visit [facility] [address] [place] [address] Judy Friend, ARABELLA Cellulitis of right lower extremity (Primary Dx); Right wrist pain; Essential hypertension 01/27/2025 Travel 01/25/2025 5:00 PM EDT Telemedicine [address] [place] [address] Alyssa Cerda APRN Cellulitis of right lower extremity (Primary Dx) 01/19/2025 Refill [facility] [address] [place] [address] Ulises Judd MD Essential hypertension 12/02/2024 12:15 PM EDT Office Visit [facility] [address] [address] Ulises Judd MD Acute bronchitis and bronchiolitis (Primary Dx) 12/02/2024 Travel 11/23/2024 Refill [facility] [address] [place] [address] Ulises Judd MD Essential hypertension from Last 3 Months Immunizations Immunization Administration Dates Next Due COVID-19 (MODERNA) 1st,2nd,3rd Dose Monovalent 0 12/08/2020,11/10/2020 Fluzone (or Fluarix & Flulaval for VFC) >6mos ,04/30/2022 H1N1 Inj 04/28/2009 Pneumococcal Conjugate 20-Valent (PCV20) 024 Family History Medical History Relation Name Comments Depression Brother 1 Julito Louden Depression Brother 2 Julito Louden Arthritis Maternal Aunt 1 Bianca Michael Depression Maternal Aunt 1 Bianca Michael Diabetes Maternal Aunt 1 Bianca Michael Thyroid disease Maternal Aunt 1 Bianca Michael Arthritis Maternal Aunt 2 Bianca Michael Depression Maternal Aunt 2 Bianca Michael Diabetes Maternal Aunt 2 Bianca Michael Thyroid disease Maternal Aunt 2 Bianca Michael Alcohol abuse Maternal Grandfather Corona Grimes Alcohol abuse Maternal Grandmother Unique [place] Depression Maternal Grandmother Unique Sydney Arthritis Mother Citlalli Hoyt Depression Mother Citlalli Hoyt Thyroid disease Mother Citlalli Hoyt Relation Name Status Comments Brother 1 Julito Sullivanen Brother 2 Julito Morales Alive Maternal Aunt 1 Bianca Michael Maternal Aunt 2 Bianca Michael Alive Maternal Grandfather Corona Sydney Alive Maternal Grandmother Unique Sydney Alive Mother Citlalli Hoyt Alive Social History Tobacco Use Types Packs/Day Years Used Date Smoking Tobacco: Some Days Cigarettes 1 11.2 Started: 03/30/2013; Last attempted to quit: 05/29/2024 Smokeless Tobacco: Never Tobacco Cessation:Ready to Q uit: Not Asked; Counseling Given: Not Answered Alcohol Use Standard Drinks/Week Comments Not Currently [...] Orientation Straight 09/20/2024 4: 03 AM EDT Last Filed Vital Signs Vital Sign Reading Time Taken Comments Blood Pressure 100/60 01/27/2025 12:46 PM EDT Pulse 60 01/27/2025 12:46 PM EDT Temperature 36.9 C (98.4 F) 01/27/2025 12:46 PM EDT Respiratory Rate 16 01/27/2025 12:46 PM EDT Oxygen Saturation 97% 12/02/2024 12:37 PM EDT Inhaled Oxygen Concentration - - Weight 100 kg (221 lb) 01/27/2025 12:46 PM EDT Height 170.2 cm (5' 7.01 ) 01/27/2025 12:46 PM E DT Body Mass Index 34.61 01/27/2025 12:46 PM EDT Plan of Treatment Health Maintenance Due Date Last Done Comments Annual Gynecologic Pelvic an d Breast Exam 1960 TDAP/TD VACCINES (1 - Tdap) 11/27/1979 COLON CANCER SCREENING 5 YEA R SIGMOIDOSCOPY [address] COLONOGRAPHY 2005 FECAL OCCULT BLOOD TEST 2005 FIT Testing (1 year) 2005 ZOSTER VACCINE (1 of 2) 2010 COVID-19 Vaccine (2023-2 5 season) 2024 12/08/2020, 11/10/2020 INFLUENZA VACCINE 03/30/2025 05/27/2023, 04/30/2022 ANNUAL WELLNESS VISIT 09/21/2025 09/21/2024 , 09/21/2024, 09/18/2023, Additional history exists MAMMOGRAM 12/21/2025 12/22/2023, 01/2022, 12/05/2021, Additional history exists COLOGUARD 12/06/2027 12/05/2024, 10/28, 11/08/2021, Additional history exists COLORECTAL CANCER SCREENING 12/06/2027 HEPATITIS C SCREENING Completed 08/23/2022 , 07/03/2021 (Patient-Reported (Performed Externally)) Pneumococcal Vaccine 50+ Completed 09/18/2023 Procedures Procedure Name Priority Date/Time Associated Diagnosis Comments COLOGUARD Routine 12/05/2024 6:00 PM EDT Colon cancer screening SCANNED - IMAGING 11/11/2024 SCANNED - IMAGING 11/11/2024 SCANNED - MAMMO 12/22/2023 from Last 3 Months or Most Recently Relevant to Health Maintenance Results * Cologuard - Stool, Per Rectum (12/05/2024 6:00 PM EDT) Cologuard Negative Negative 12/12/2024 4:40 PM EDT [employer] (CLIA #:[id number]) Comment: The Cologuard (TM) test was performed on this specimen. NEGATIVE TEST RESULT. A negative Cologuard result indicates a low likelihood that a colorectal cancer (CRC) or advanced adenoma (adenomatous polyps with more advanced pre-malignant features) is present. The chance that a person with a negative Cologuard test has a colorectal cancer is less than 1 in 1500 (negative predictive value >99.9%) or has an advanced adenoma is less than 5.3% (negative predictive value 94.7%). These data are based on a prospective cross-sectional study of 10,000 individuals at average risk for colorectal cancer who were screened with both Cologuard and colonoscopy. (Axel Cordova al, N Engl J Med 2014;370(14):1286- 1297) The normal value (reference range) for this assay is negative. COLOGUARD RE-SCREENING RECOMMENDATION: Periodic colorectal cancer screening is an important part of preventive healthcare for asymptomatic individuals at average risk for colorectal cancer. Following a negative Cologuard result, the [place] [employer] Cancer Society and U.S. Multi-Society Task Force screening guidelines recommend a Cologuard re-screening interval of 3 years. References: [place] [employer] Society Guideline for Colorectal Cancer Screening: https://www.cancer.org/cancer/osiww-hrodee-tdmvrt/gtimcsonj-reqqsvdav-socklvo/ac s-rec ommendations.html.; Miguel DK, Ivonne JAIME, Roel AvilaK, Colorectal Cancer Screening: Recommendations for Physicians and Patients from the U.S. Multi-Society Task Force on Colorectal Cancer Screening , Am J Gastroenterology 2017; 112:4306-8211. TEST DESCRIPTION: Composite algorithmic analysis of stool DNA-biomarkers with hemoglobin immunoassay. Quantitative values of individual biomarkers are not reportable and are not associated with individual biomarker result reference ranges. Cologuard is intended for colorectal cancer screening of adults of either sex, 45 years or older, who are at average-risk for colorectal cancer (CRC). Cologuard has been approved for use by the U.S. FDA. The performance of Cologuard was established in a cross sectional study of average-risk adults aged 50-84. Cologuard performance in patients ages 45 to 49 years was estimated by sub-group analysis of near-age groups. Colonoscopies performed for a positive result may find as the most clinically significant lesion: colorectal cancer [4.0%], advanced adenoma (including sessile serrated polyps greater than or equal to 1cm diameter) [20%] or non- advanced adenoma [31%]; or no colorectal neoplasia [45%]. These estimates are derived from a prospective cross-sectional screening study of 10,000 individuals at average risk for colorectal cancer who were screened with both Cologuard and colonoscopy. (Imperiale T. et al, N Engl J Med 2014;370(14):7158-2334.) Cologuard may produce a false negative or false positive result (no colorectal cancer or precancerous polyp present at colonoscopy follow up). A negative Cologuard test result does not guarantee the absence of CRC or advanced adenoma (pre-cancer). The current Cologuard screening interval is every 3 years. ([place] [employer] Cancer Society and U.S. Multi-Society Task Force). Cologuard performance data in a 10,000 patient pivotal study using colonoscopy as the reference method can be accessed at the following location: www.[employer] Online.Swift Identity/results. Additional description of the Cologuard test process, warnings and precautions can be found at www.cologuard.Swift Identity. Stool specimen (specimen) Specimen from rectum / Unknown 12/05/2024 6:00 PM EDT 12/08/2024 11:19 AM EDT Ulises Judd MD BODY FLUIDS AND STOOLS O RDERABLES Final Result [employer] (CLIA #:[id number]) [place] [address], * IMAGING SCANNED (11/11/2024) Only the most recent of2 resultswithin the time period is included. Anatomical Region Laterality Modality Radiographic Mary ging Ulises Judd MD IMG DIAGNOSTIC IMAGING O RDERABLES Final Result * MAMMO Scan (12/22/2023) Anatomical Region Laterality Modality Other Ulises Judd MD CHART REVIEW TABS Fin al Result from Last 3 Months or Most Recently Relevant to Health Maintenance Insurance [employer] HMO Care Teams Manager Msw Relationship Specialty Start Date End Date Ulises Judd MD [address] [facility] [place] [address] PCP - General Family Medicine 10/11/21
--- OUTSIDE RECORDS SUMMARY | 2025-02-10 10:28 | XMS_ITS | Encounter Summary ---
Author Organization [facility] Address [address] [place] [address] Care Team Providers Care Elementary Education Tutor Name Role Phone Ulises Judd MD Primary Care Provider [phone] Reason for Visit * Reason Comments Med Refill Encounter Details Date Type Department Care Team (Late st Contact Info) Description 05/20/2024 Refill [place] [facility] [address], [address] [place] [address] Trino Trevizo MD [address] [place] [address] Status post cervical spinal fusion [...] drink first t inna in the morning (EYE-FIELD ENUMERATOR) to steady your nerves or to get [...] Visit [place] [facility] [address] [place] [address] Trino Trevizo MD [address] [place] [address] documented as of this encounter [...] documented as of this encounter Care Teams Elementary Education Tutor Relationship Specialty Start Date End Date Ulises Judd MD [address] [place], [place] [id number] PCP - General 07/27/21 documented as of this encounter
--- OUTSIDE RECORDS SUMMARY | 2025-02-10 10:28 | XMS_ITS | Encounter Summary ---
Author Organization [facility] Address [address] [place] [address] Care Team Providers Care Cloth Tester Name Role Phone Ulises Judd MD Primary Care Provider + Encounter Details Date Type Department Care Team (Latest Contact Info) Description 01/27/2025 Travel Social History Tobacco Use Types Packs/Day [...] AM EDT documented as of this encounter Plan of Treatment Not on file documented as of this encounter Visit Diagnoses Not on filedocumented in this encounter Care Teams Cloth Tester Relationship Specialty Start Date End Date Ulises Judd MD [facility] [place] [address] PCP - General Family Medicine 10/11/21 documented as of this encounter
--- OUTSIDE RECORDS SUMMARY | 2025-02-10 10:28 | XMS_ITS | Encounter Summary ---
Author Organization [facility] Address [address] [place] [address] Care Team Providers Care Buffet Server Name Role Phone Ulises Judd MD Primary Care Provider [phone] Encounter Details Date Type Department Care Team ([facility] st Contact Info) Description 11/11/2024 Orders Only External Location [address] [place] [address] Provider, External Social History Tobacco Use Types [...] drink first t inna in the morning (EYE-WARP HAULER) to steady your nerves or to get [...] Visit [place] [facility] [address], [address] [place] [address] Trino Trevizo MD [address] [facility] [address] [place] [address] documented as of this encounter [...] documented as of this encounter Care Teams Buffet Server Relationship Specialty Start Date End Date Ulises Judd MD [address] [facility] [place] [address] PCP - General 07/27/21 documented as of this encounter
--- OUTSIDE RECORDS SUMMARY | 2025-02-10 10:28 | XMS_ITS | Encounter Summary ---
Author Organization [facility] Address [address] [place] [address] Care Team Providers Care Maintenance And Custodian Supervisor Name Role Phone Ulises Judd MD Primary Care Provider [phone] Reason for Visit * Reason Comments Med Refill Encounter Details Date Type Department Care Team (Late st Contact Info) Description 05/21/2023 Refill [place] [facility] [address] [place] [address] Trino Trevizo MD [address] [place] [address] Cervical myelopathy with cervical radiculopathy [...] drink first t inna in the morning (EYE-CORPORATE STAFF ACCOUNTANT) to steady your nerves or to get [...] Sultana PA - 05/21/2023 1:33 PM EST [employer] [facility] [employer] [facility] request #: [id number] was reviewed and appropriate. Refill for Lyrica 75 mg BID sent to Dr. Trevizo for authorization. documented in this encounter Plan of Treatment Upcoming Encounters Date Type Department Care Team (Late st Contact Info) Description 03/21/2025 4:00 PM EDT Office Visit [place] [facility] [address] [place] [address] Trino Trevizo MD [address] [place] [address] documented as of this encounter Visit Diagnoses [...] documented as of this encounter Care Teams Maintenance And Custodian Supervisor Relationship Specialty Start Date End Date Ulises Judd MD [address] [place] [address] PCP - General 07/27/21 documented as of this encounter
--- OUTSIDE RECORDS SUMMARY | 2025-02-10 10:28 | XMS_ITS | Encounter Summary ---
Author Organization [facility] Address [address] [place] [id number] Care Team Providers Care Manager Underwriting Name Role Phone Ulises Judd MD Primary Care Provider + Encounter Details Date Type Department Care Team (Late st Contact Info) Description 09/30/2024 Results Follow-Up [facility] [address] [place] [address] Ulises Judd MD [address] [place] [address] Social History Tobacco Use Types Packs/Day Years [...] on filedocumented in this encounter Care Teams Manager Underwriting Relationship Specialty Start Date End Date Ulises Judd MD [address] [place] [address] PCP - General Family Medicine 10/11/21 documented as of this encounter
--- OUTSIDE RECORDS SUMMARY | 2025-02-10 10:28 | XMS_ITS | Encounter Summary ---
Author Organization Healthcare Address [address] [place] [address] Care Team Providers Care Improvement Intern Name Role Phone Ulises Judd MD Primary Care Provider [phone] Reason for Visit * Reason Comments Med Refill Encounter Details Date Type Department Care Team (Late st Contact Info) Description 05/22/2022 Refill Medical Office [facility] [address] [facility], [address] [place] [address] Pino Ponce MD [address] [place] [address] Social History Tobacco Use Types [...] Description 03/21/2025 4:00 PM EDT Office Visit [place] [facility] [address], 1st [place] [address] Trino Trevizo MD [address] [facility] [address] [place] [address] documented as of this encounter Visit Diagnoses Not on filedocumented in this encounter Additional Health Concerns Assessment Noted Time A fall risk assessment has been complete d for the patient 05/07/2022 3:42 PM EST documented as of this encounter Care Teams Improvement Intern Relationship Specialty Start Date End Date Ulises Judd MD [address] [place] [address] PCP - General 07/27/21 documented as of this encounter
--- OUTSIDE RECORDS SUMMARY | 2025-02-10 10:28 | XMS_ITS | Encounter Summary ---
Author Organization [facility] Address [address] [place] [address] Care Team Providers Care Director Of Pediatric Rehabilitation Name Role Phone Ulises Judd MD Primary Care Provider + Reason for Visit * Reason Comments Med Refill Encounter Details Date Type Department Care Team (Late st Contact Info) Description 01/19/2025 Refill [facility] [address] [facility] [place] [address] Ulises Judd MD [address] [place] [address] Essential hypertension Social History Tobacco Use Types [...] as of this encounter Visit Diagnoses Diagnosis Essential hypertension Unspecified essential hypertension documented in this encounter Care Teams Director Of Pediatric Rehabilitation Relationship Specialty Start Date End Date Ulises Judd MD [address] [place] [address] PCP - General Family Medicine 10/11/21 documented as of this encounter
--- OUTSIDE RECORDS SUMMARY | 2025-02-10 10:28 | XMS_ITS | Encounter Summary ---
Author Organization [facility] Address [address] [place] [id number] Care Team Providers Care Tufting Machine Fixer Name Role Phone Ulises Judd MD Primary Care Provider + Encounter Details Date Type Department Care Team (Late st Contact Info) Description 10/04/2024 Results Follow-Up [facility] [address] [place] [address] Ulises Judd MD [address] [place] [address] Social History Tobacco Use Types [...] on filedocumented in this encounter Care Teams Tufting Machine Fixer Relationship Specialty Start Date End Date Ulises Judd MD [address] [place] [address] PCP - General Family Medicine 10/11/21 documented as of this encounter
--- OUTSIDE RECORDS SUMMARY | 2025-02-10 10:28 | XMS_ITS | Encounter Summary ---
Author Organization [facility] Address [address] [place] [address] Care Team Providers Care Dry Plasterer Helper Name Role Phone Ulises Judd MD Primary Care Provider [phone] Reason for Visit * Reason Comments Med Refill Encounter Details Date Type Department Care Team (Late st Contact Info) Description 01/23/2024 Refill [place] [facility] [address], 1st [place] [address] Trino Trevizo MD [address] [place] [address] Status post cervical spinal fusion [...] drink first t inna in the morning (EYE-FORMULA MAKER) to steady your nerves or to [...] 01/23/2024 4:11 PM EDT Report # : [id number] was reviewed and appropriate. Medication refill for Lyrica was sent to Dr. Trevizo for authorization. documented in this encounter Plan of Treatment Upcoming Encounters Date Type Department Care Team (Late st Contact Info) Description 03/21/2025 4:00 PM EDT Office Visit [place] [facility] [address], 1[address] [place] [address] Trino Trevizo MD [address] [facility] [address] [place] [address] documented as of this encounter Visit Diagnoses Diagnosis Status post cervical spinal fusion Arthrodesis status documented in this encounter Additional Health Concerns Assessment Noted Time A fall risk assessment has been complete d for the patient 08/25/2023 2:32 PM EST A Body Mass Index follow-up plan has been documented for the patient 08/26/2023 7:29 AM EST documented as of this encounter Care Teams Dry Plasterer Helper Relationship Specialty Start Date End Date Ulises Judd MD [address] [place] [address] PCP - General 07/27/21 documented as of this encounter
--- OUTSIDE RECORDS SUMMARY | 2025-02-10 10:28 | XMS_ITS | Encounter Summary ---
Author Organization [facility] Address [address] [place] [address] Care Team Providers Care Toe Stripper Name Role Phone Ulises Judd MD Primary Care Provider [phone] Encounter Details Date Type Department Care Team ([facility] st Contact Info) Description 11/05/2024 Orders Only External Location [address] [place] [address] Provider, External Social History Tobacco Use Types [...] drink first t inna in the morning (EYE-ROBOTIC WELD TECHNICIAN) to steady your nerves or to [...] Visit [place] [facility] [address], [address] [place] [address] Trino Trevizo MD [address] [facility] [address] [place] [address] documented as of this encounter [...] documented as of this encounter Care Teams Toe Stripper Relationship Specialty Start Date End Date Ulises Judd MD [address] [facility] [place], [place] [id number] PCP - General 07/27/21 documented as of this encounter
--- OUTSIDE RECORDS SUMMARY | 2025-02-10 10:28 | XMS_ITS | Encounter Summary ---
Author Organization Healthcare Address [address] [place] [address] Care Team Providers Care Mimeographer Name Role Phone Ulises Judd MD Primary Care Provider Reason for Visit * Reason Comments Med Refill Encounter Details Date Type Department Care Team (Late st Contact Info) Description 01/21/2023 Refill [place] [facility] [address], 1[address] [place] [address] Trino Trevizo MD [address] [place] [address] Status post cervical spinal fusion [...] drink first t inna in the morning (EYE-QA AUDITOR) to steady your nerves or to get [...] Description 03/21/2025 4:00 PM EDT Office Visit [facility] [address], 1[address] [place] [address] Trino Trevizo MD [address] [facility] [address] [place] [address] documented as of this encounter Visit Diagnoses Diagnosis Status post cervical spinal fusion Arthrodesis status documented in this encounter Additional Health Concerns Assessment Noted Time A fall risk assessment has been complete d for the patient 01/20/2023 12:42 PM EDT A Body Mass Index follow-up plan has been documented for the patient 01/20/2023 1:45 PM EDT documented as of this encounter Care Teams Mimeographer Relationship Specialty Start Date End Date Ulises Judd MD [address] [place] [address] PCP - General 07/27/21 documented as of this encounter
--- OUTSIDE RECORDS SUMMARY | 2025-02-10 10:28 | XMS_ITS | Encounter Summary ---
Author Organization [facility] Address [address] [place] [address] Care Team Providers Care Plant Quality Manager Name Role Phone Ulises Judd MD Primary Care Provider [phone] Reason for Visit * Reason Comments Med Refill Encounter Details Date Type Department Care Team (Late st Contact Info) Description 10/23/2023 Refill [place] [facility] [address], 1[address] [place] [address] Trino Trevizo MD [address] [place] [address] Status post cervical spinal fusion; [...] drink first t inna in the morning (EYE-CONE TREATER) to steady your nerves or to get [...] Description 03/21/2025 4:00 PM EDT Office Visit [facility] [address], [address] [place] [address] Trino Trevizo MD [address] [facility] [address] [place] [address] documented as of this encounter Visit Diagnoses [...] documented as of this encounter Care Teams Plant Quality Manager Relationship Specialty Start Date End Date Ulises Judd MD [address] [facility] [place] [address] PCP - General 07/27/21 documented as of this encounter
--- OUTSIDE RECORDS SUMMARY | 2025-02-10 10:28 | XMS_ITS | Encounter Summary ---
Author Organization [facility] Address [address] [place] [address] Care Team Providers Care Marketing [employer] Name Role Phone Ulises Judd MD Primary Care Provider [phone] Reason for Visit * Reason Comments Med Refill Encounter Details Date Type Department Care Team (Late st Contact Info) Description 12/23/2023 Refill [place] [facility] [address], [address] [place] [address] Trino Trevizo MD [address] [place] [address] Status post cervical spinal fusion; [...] drink first t inna in the morning (EYE-ON AIR ANNOUNCER) to steady your nerves or to get [...] Description 03/21/2025 4:00 PM EDT Office Visit [facility] [address], [address] [place] [address] Trino Trevizo MD [address] [facility] [address] [place] [address] documented as of this encounter Visit Diagnoses [...] documented as of this encounter Care Teams Marketing [employer] Relationship Specialty Start Date End Date Ulises Judd MD [address] [facility] [place] [place] [address] PCP - General 07/27/21 documented as of this encounter
--- OUTSIDE RECORDS SUMMARY | 2025-02-10 10:28 | XMS_ITS | Encounter Summary ---
Author Organization [facility] Address [address] [place] [id number] Care Team Providers Care General I Farmworker Name Role Phone Ulises Judd MD Primary Care Provider + Encounter Details Date Type Department Care Team (Late st Contact Info) Description 10/11/2024 Results Follow-Up [facility] [address] [facility] [place] [address] Chloe Muniz PA [address] [place] [address] Social History Tobacco Use Types [...] as of this encounter Visit Diagnoses Diagnosis Acute UTI- Primary Urinary tract infection, site not specified documented in this encounter Care Teams General I Farmworker Relationship Specialty Start Date End Date Ulises Judd MD [address] [facility] [place] [address] PCP - General Family Medicine 10/11/21 documented as of this encounter
--- OUTSIDE RECORDS SUMMARY | 2025-02-10 10:28 | XMS_ITS | Encounter Summary ---
Author Organization [facility] Address [address] [place] [id number] Care Team Providers Care Zipper Cutter Name Role Phone Ulises uJdd MD Primary Care Provider + Encounter Details Date Type Department Care Team (Late st Contact Info) Description 11/04/2024 Results Follow-Up [facility] [address] [place] [address] Chloe Muniz PA [address] [place] [address] Social History Tobacco Use Types [...] on filedocumented in this encounter Care Teams Zipper Cutter Relationship Specialty Start Date End Date Ulises Judd MD [address] [place] [address] PCP - General Family Medicine 10/11/21 documented as of this encounter
--- OUTSIDE RECORDS SUMMARY | 2025-02-10 10:28 | XMS_ITS | Encounter Summary ---
Author Organization [facility] Address [address] [place] [address] Care Team Providers Care Radiosonde Specialist Name Role Phone Ulises Judd MD Primary Care Provider [phone] Encounter Details Date Type Department Care Team ([facility] st Contact Info) Description 11/11/2024 Orders Only External Location [address] [place] [address] Provider, External Social History Tobacco Use Types [...] drink first t inna in the morning (EYE-CREW CALLER) to steady your nerves or to get [...] Description 03/21/2025 4:00 PM EDT Office Visit [place] [facility] [address], 1st [place] [address] Trino Trevizo MD [address] [facility] [address] [place] [address] documented as of this encounter [...] documented as of this encounter Care Teams Radiosonde Specialist Relationship Specialty Start Date End Date Ulises Judd MD [address] [facility] [place] [address] PCP - General 07/27/21 documented as of this encounter
--- OUTSIDE RECORDS SUMMARY | 2025-02-10 10:28 | XMS_ITS | Encounter Summary ---
Author Organization [facility] Address [address] [place] [address] Care Team Providers Care Inside Plant Supervisor Name Role Phone Ulises Judd MD Primary Care Provider [phone] Encounter Details Date Type Department Care Team [...] drink first t inna in the morning (EYE-BEFORE AND AFTER SCHOOL DAYCARE WORKER) to steady your nerves or to get [...] Visit [place] [facility] [address], 1[address] [place] [address] Trino Trevizo MD [address] [facility] [address] [place] [address] documented as of this encounter Visit Diagnoses Not on filedocumented in this encounter Additional Health Concerns Assessment Noted Time A fall risk assessment has been complete d for the patient 01/03/2025 3:17 PM EDT A Body Mass Index follow-up plan has been documented for the patient 01/03/2025 9:21 PM EDT documented as of this encounter Care Teams Inside Plant Supervisor Relationship Specialty Start Date End Date Ulises Judd MD [address] [place] [address] PCP - General 07/27/21 documented as of this encounter
--- OUTSIDE RECORDS SUMMARY | 2025-02-10 10:28 | XMS_ITS | Clinical Summary ---
Author Organization [facility] Address [address] [place] [address] Care Team Providers Care Agronomy Research Manager Name Role Phone Ulises Judd MD Primary Care Provider [phone] Allergies Active Allergy Reactions Criticality Noted Date [...] 1 (one) time each day. Active B Huyhprj-Mxabku-MQ ( VITAMIN B 50/B-COMPLEX PO) Take 1 tablet by mouth 1 (one) time each day. Active Multiple Vitamins-Minerals (GNP Century Mature Women's 50+) tablet Take 1 tablet by mouth 1 (one) time each day. Active HYDROcodone-aceta minophen ([place]) 7.5-325 MG tablet Take 1 tablet by [...] tablet by mouth. 5 Active HYDROcodone-aceta minophen ([place]) 10-325 MG tablet TAKE ONE TABLET BY [...] (02/13/2022): Added automatically from request for surgery [id number] Spinal cord stimulator status 08/03/2021 Arthritis 08/03/2021 [...] Description 01/03/2025 3:30 PM EDT Office Visit [place] [facility] [address], [address] [place] [address] Trino Trevizo MD Lumbar spondylosis (Primary Dx); Lumbar radiculopathy; Spinal stenosis of lumbar region with neurogenic claudication; Degeneration of intervertebral disc of lumbar region with discogenic back pain and lower extremity pain 01/03/2025 Travel 11/11/2024 Orders Only External Location [address] [place] [address] Provider, External 11/11/2024 Orders Only External Location [address] [place] [address] Provider, External from Last 3 Months Immunizations Immunization Administration [...] drink first t inna in the morning (EYE-LIMOUSINE RENTAL CLERK) to steady your nerves or to [...] Visit [place] [facility] [address], [address] [place] [address] Trino Trevizo MD [address] [place] [address] Health Maintenance Due Date Last Done Comments [facility]-Bone Density Scan 1960 [facility]-Infant/Child/Adol SDOH Screenings 1960 [facility]- SDOH Screenings 1978 [facility]-Adult SDOH Screenings 1978 [facility]-DTaP,Tdap,and Td Vaccines (1 - Tdap) 11/27/1979 CT Colonography 2005 Colonoscopy 2005 FIT 2005 FOBT 2005 Sigmoidoscopy 2005 [facility]-Zoster Vaccines (1 of 2) 2010 [facility]-RSV Vaccine: 60+ Years or (1 - Risk 60-74 years 1-dose series) 2020 [id number] Vaccine (3 - Moderna risk series) 01/05/2021 [...] this topic Medical Devices Implanted Type Area Pest Control Service Sales Agent Device Identifier Shelf Expiration Date Model / Serial / Lot Cement Palacos Lv W Gent - [id number] - [id number] Implanted:Qty: 6 on 03/15/2022 by Pino Ponce MD at [facility] Cement Left: Knee Herae[employer] Inc-[id number] 08/28/2023 [id number] / [id number] / Putty Fibergraft Bg Xsmall 1cc - [id number] - [id number] Implanted:Qty: 1 on 08/25/2022 by Trino Trevizo MD at [facility] Implant N/A: Spine Cervical DePuy Spine Sales LP-[id number] 12/08/2023 [id number] / [id number] / [id number] Juan Str Ti 4.0x240 - S. - [id number] Implanted:Qty: 1 on 08/27/2022 by Trino Trevizo MD at [facility] Juan N/A: Spine Cervical DePuy Sp[employer] LP-[id number] 08/27/2023 [id number] / . / Set Screw - S. - [id number] Implanted:Qty: 11 on 08/27/2022 by Trino Trevizo MD at [facility] Screw N/A: Spine Cervical DePuy Spine [employer] LP-[id number] 08/27/2023 [id number] / . / Screw 4.0 Ply 3.5x16 - S. - [id number] Implanted:Qty: 5 on 08/27/2022 by Trino Trevizo MD at [facility] Screw N/A: Spine Cervical De[employer] Sp[employer] LP-[id number] 08/27/2022 [id number] / . / Screw 4.0 Ply Cfx 4.5x26 - S. - [id number] Implanted:Qty: 2 on 08/27/2022 by Trino Trevizo MD at [facility] Screw N/A: Spine Cervical De[employer] Sp[employer] LP-[id number] 08/27/2023 [id number] / . / Screw 4.0 Ply Cfx 4.5x30 - S. - [id number] Implanted:Qty: 2 on 08/27/2022 by Trino Trevizo MD at [facility] Screw N/A: Spine Cervical De[employer] Sp[employer] LP-[id number] 08/27/2023 [id number] / . / Screw 4.0 Ply 4.0x30 - S. - [id number] Implanted:Qty: 1 on 08/27/2022 by Trino Trevizo MD at [facility] Screw N/A: Spine Cervical De[employer] Sp[employer] LP-[id number] 08/27/2023 [id number] / . / Screw 4.0 Ply 4.0x24 - S. - [id number] Implanted:Qty: 1 on 08/27/2022 by Trino Trevizo MD at [facility] Screw N/A: Spine Cervical DePuy Spine [employer] LP-[id number] 08/27/2023 [id number] / . / Tibial Baseplate Size 4 Component - [id number] - [id number] Implanted:Qty: 1 on 03/15/2022 by Pino Ponce MD at [facility] Left: Knee Onkos [employer] Inc-[id number] 05/15/2029 [id number] / [id number] / Stem Ext [id number] Str Bullet-Tip 19k28un - [id number] - [id number] Implanted:Qty: 1 on 03/15/2022 by Pino Ponce MD at [facility] Left: Knee [employer] Inc-[id number] 06/01/2029 [id number] / [id number] / Stem Str Fluted 36mm Collar [id number] - [id number] - [id number] Implanted:Qty: 1 on 03/15/2022 by Pion Ponce MD at [facility] Left: Knee [employer] Inc-[id number] 02/07/2029 -[id number] / [id number] / Distalfemur [id number] - [id number] - [id number] Implanted:Qty: 1 on 03/15/2022 by Pino Ponce MD at [facility] Left: Knee [employer] Inc-[id number] 10/17/2029 [id number] / [id number] / One Size Tibial Baseplate Tapered Screw Implanted:Qty: 1 on 03/15/2022 by Pino Ponce MD at [facility] Left: Knee [employer] 12/07/2025 -[id number] / [id number] / Description:NONFILE Eleos Tibial Hinge W/O Rotational Stop - [id number] - [id number] Implanted:Qty: 1 on 03/15/2022 by Pino Ponce MD at [facility] Left: Knee [employer] Inc-[id number] 07/10/2029 [id number] / [id number] / Distalfemur Axial Pin One Size - [id number] - [id number] Implanted:Qty: 1 on 03/15/2022 by Pino Ponce MD at [facility] Left: Knee [employer] Inc-[id number] 12/13/2028 [id number] / [id number] / Tibial Poly Spacer 12mm - [id number] Implanted:Qty: 1 on 03/15/2022 by Pino Ponce MD at [facility] Left: Knee [employer] Inc-[id number] 02/25/2027 [id number] / / [id number] Compression Pin, 12mm - [id number] Implanted:Qty: 2 on 08/25/2022 by Trino Trevizo MD at [facility] DePuy Spine Sales -[id number] 08/25/2023 [id number] / / Bengal Stack Std Lisbeth 30mm - [id number] Implanted:Qty: 1 on 08/25/2022 by Trino Trevizo MD at [facility] N/A: Spine Cervical DePuy Spine Sales -[id number] 08/25/2023 [id number] / / Plate Two Level 36mm - [id number] Implanted:Qty: 1 on 08/25/2022 by Trino Trevizo MD at [facility] N/A: Spine Cervical DePuy Spine Sales -[id number] 08/25/2023 [id number] / / Self Drilling Screw 18mm - [id number] Implanted:Qty: 3 on 08/25/2022 by Trino Trevizo MD at [facility] N/A: Spine Cervical DePuy Spine Sales -[id number] 08/25/2023 [id number] / / Self Drilling Screw 16mm - [id number] Implanted:Qty: 1 on 08/25/2022 by Trino Trevizo MD at [facility] N/A: Spine Cervical DePuy Spine Sales -[id number] 08/25/2023 [id number] / / Graft Vivigen 10cc - [id number] Implanted:Qty: 1 on 08/27/2022 by Trino Trevizo MD at [facility] N/A: Spine Cervical [id number] 04/24/2026 [id number] / / [id number] Matrix Fibergraft Bg Lg 12.5cc - [id number] Implanted:Qty: 1 on 08/27/2022 by Trino Trevizo MD at [facility] N/A: Spine Cervical DePuy Spine Sales -[id number] 08/01/2024 [id number] / / [id number] Description:Used part# [id number] Connector Lateral Offset 4.0 L - S. - [id number] Implanted:Qty: 1 on 08/27/2022 by Trino Trevizo MD at [facility] N/A: Spine Cervical DePuy Spine Sales LP-[id number] 08/27/2023 [id number] / . / Procedures Procedure Name Priority Date/Time Associated Diagnosis Comments MR NEURO OUTSIDE IMAGES 11/12/19 1:19 PM EDT MR NEURO OUTSIDE IMAGES 11/12/19 1:19 PM EDT HEPATITIS C ANTIBODY - ED W/REFLEX TO [...] IMG MRI PROCEDURES Final Resul t * HIV 1 & 2 Antibody/Antigen Screen (08/23/2022 1:43 PM EST) [facility] HIV 1 & 2 Antibody/Antigen Screen Non Reactive Non Reactive 08/23/2022 3:06 PM EST [facility] Comment:Screening for HIV 1 & 2 antibodies, and P24 antigen is NONREACTIVE. No confirmatory testing is required. Blood Venous blood specimen / Unknown Venipuncture / Unknown 08/23/2022 1:43 PM EST 08/23/2022 2:22 PM EST Sally Washington MD LAB BLOOD ORDERABLES [facility] [address] [place] [address] * Hepatitis C Antibody - ED (08/23/2022 1:43 PM EST) Hepatitis C Antibody Negative Negative 08/23/2022 3:03 PM EST [facility] Blood Venous blood specimen / Unknown Venipuncture / Unknown 08/23/2022 1:43 PM EST 08/23/2022 2:22 PM EST us Sally Washington MD LAB BLOOD ORDERABLES Final [facility] [address] [place] [address] * Mammography Breast Screening Tomosynthesis Bilateral (12/05/2021 [...] to: 01/05/2019 Mammography Outside Images Upload at [facility] 02/08/2020 Mammography Outside Images Upload at [facility] BREAST COMPOSITION: The breasts are almost entirely fatty. FINDINGS: There are no suspicious masses, calcifications, or areas of architectural distortion in either breast. us Ulises Judd MD IMG BI PROCEDURES Final Resul t from Last 3 Months or Most Recently Relevant to Health Maintenance Insurance [employer] MEDICARE Advance Directives * Full Code (Latest [...] Patient has decision-making capacity? Yes Care Teams Agronomy Research Manager Relationship Specialty Start Date End Date Ulises Judd MD [address] [place] [address] PCP - General 07/27/21
--- OUTSIDE RECORDS SUMMARY | 2025-02-10 10:28 | XMS_ITS | Encounter Summary ---
Author Organization [facility] Address [address] [place] [id number] Care Team Providers Care Selenium Plant Operator Name Role Phone Ulises Judd MD Primary Care Provider + Encounter Details Date Type Department Care Team (Late st Contact Info) Description 11/08/2024 Results Follow-Up [facility] [address] [place] [address] Chloe Muniz PA [address] [place] [address] Social History Tobacco Use Types [...] on filedocumented in this encounter Care Teams Selenium Plant Operator Relationship Specialty Start Date End Date Ulises Judd MD [address] [place] [address] PCP - General Family Medicine 10/11/21 documented as of this encounter
--- OUTSIDE RECORDS SUMMARY | 2025-02-10 10:28 | XMS_ITS | Encounter Summary ---
Author Organization [facility] Address [address] [place] [id number] Care Team Providers Care Manufacturing Quality Inspector Name Role Phone Ulises Judd MD Primary Care Provider + Encounter Details Date Type Department Care Team (Late st Contact Info) Description 09/22/2024 Results Follow-Up [facility] [address] [place] [address] Ulises Judd MD [address] [place] [address] Social History Tobacco Use Types [...] on filedocumented in this encounter Care Teams Manufacturing Quality Inspector Relationship Specialty Start Date End Date Ulises Judd MD [address] [place] [address] PCP - General Family Medicine 10/11/21 documented as of this encounter
--- OUTSIDE RECORDS SUMMARY | 2025-02-10 10:28 | XMS_ITS | Encounter Summary ---
Author Organization [facility] Address [address] [place] [id number] Care Team Providers Care Air Defence Officer Name Role Phone Ulises Judd MD Primary Care Provider + Encounter Details Date Type Department Care Team (Late st Contact Info) Description 10/04/2024 Results Follow-Up [facility] [address] [place] [address] Ulises Judd MD [address] [place] [address] Social History Tobacco Use Types [...] on filedocumented in this encounter Care Teams Air Defence Officer Relationship Specialty Start Date End Date Ulises Judd MD [address] [place] [address] PCP - General Family Medicine 10/11/21 documented as of this encounter
--- OUTSIDE RECORDS SUMMARY | 2025-02-10 10:28 | XMS_ITS | Encounter Summary ---
Author Organization [facility] Address [address] [place] [address] Care Team Providers Care Expanded Function Dental Assistant Name Role Phone Ulises Judd MD Primary Care Provider [phone] Reason for Visit * Reason Comments Med Refill Encounter Details Date Type Department Care Team (Late st Contact Info) Description 01/21/2023 Refill [place] [facility] [address], [address] [place] [address] Nathan Feliciano MD [address] [place] [address] Cervical myelopathy with cervical radiculopathy [...] drink first t inna in the morning (EYE-HUMAN RESOURCES DIRECTOR) to steady your nerves or to [...] Visit [place] [facility] [address], [address] [place] [address] Trino Trevizo MD [address] [facility] [address] [place] [address] documented as of this encounter [...] documented as of this encounter Care Teams Expanded Function Dental Assistant Relationship Specialty Start Date End Date Ulises Judd MD [address] [place] [address] PCP - General 07/27/21 documented as of this encounter
[2025-02-10 10:36] VITALS: BP 123/69; PULSE 61; RESP 14; O2SAT 99; BMI 37.5
--- NOTE | 2025-02-10 10:49 | EXP.PAIN.SOA ---
[facility] Disclaimer: The information contained in this section may have been updated after the patient was seen, as this information can be updated by other users. 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 Epistaxis not due to trauma URI (upper respiratory infection) Epistaxis Right ankle pain Right foot pain Low back pain Drug overdose Renal insufficiency Accidental drug ingestion Morbid obesity Abnormal stress test Abnormal electrocardiography Dyspnea Surgical History Hx of cholecystectomy H/O spinal fusion H/O shoulder surgery H/O knee surgery H/O: hysterectomy Family History Other No significant family history Social History Smoking Status: Light tobacco smoker second hand exposure: No alcohol intake: never substance use type: denies use current occupational status: other Travel in the last 8 weeks?: None household members: spouse housing: house current occupational exposures/hazards: No caffeine: Yes PM Subjective & Objective Subjective Subjective:: Patient is a pleasant 64-year-old female who presents today for medication refill and follow-up. Today she rates her pain an 8 out of 10. She denies any new trauma or injury. She is starting physical therapy on the of this month. Patient is currently managed with Causey 10 mg 3 times a day and baclofen 10 mg/day. She denies any side effects and states she does not need refills on her baclofen. Her Tavo has been reviewed and is appropriate. Review of Systems: General: No recent weight changes, no fever, no sleep disturbances Respiratory: No cough, no shortness of air, no recurring pulmonary infections Cardiovascular/peripheral vascular: No chest pain, no palpitations, no edema, no shortness of breath Gastrointestinal: No new onset incontinence, normal bowel movements reported Genitourinary: No new onset incontinence Musculoskeletal: Low back pain Psychiatric: [Normal mood/affect] Neurological: [Denies weakness in extremities], [denies balance issues] Pain at rest (0-10 scale): 8 Objective Objective:: Physical Exam: General: Alert and oriented x3, no acute distress, pleasant and cooperative Lungs: Respirations even and unlabored, symmetrical chest expansion Eyes: PERRL Musculoskeletal: Flexion and extension of lumbar [spine] somewhat guarded secondary to pain, [antalgic gait noted] Neurological: Speech clear, no gross sensory deficit Has patient had previous pain injection?: No Conservative treatment options previously tried: Home exercise plan Length of treatment: longer than 12 weeks Meds Home Medications and Allergies Home Medications ?Medication ?Instructions ?Recorded ?Confirmed ?Type pantoprazole 40 mg tablet,delayed 40 mg PO DAILY 05/28/20 02/10/25 History release potassium chloride 10 mEq 10 meq PO BID 05/17/21 02/10/25 History capsule,extended release nitroglycerin 0.4 mg sublingual 0.4 mg sublingual Q5-15M PRN chest 04/29/23 02/10/25 Rx tablet pain #30 tabs cyanocobalamin (vitamin B-12) 500 500 mcg PO WEEKLY 06/11/23 02/10/25 History mcg tablet bumetanide 1 mg tablet 1 mg PO BID 12/30/23 02/10/25 History levothyroxine 150 mcg capsule 150 mcg PO DAILY #30 caps 06/14/24 02/10/25 Rx cefdinir 300 mg capsule 300 mg PO BID #20 caps 07/01/24 02/10/25 Rx methocarbamol 750 mg tablet 750 mg PO Q6H PRN muscle spasm #20 09/24/24 02/10/25 Rx tabs benzonatate 100 mg capsule 100 mg PO TIDP PRN Cough 12/07/24 02/10/25 History metoprolol succinate 25 mg 25 mg PO DAILY 12/07/24 02/10/25 History tablet,extended release 24 hr pramipexole 1 mg tablet 1 mg PO TID 12/07/24 02/10/25 History rivaroxaban 20 mg tablet 20 mg PO DAILY 12/07/24 02/10/25 History venlafaxine 150 mg tablet,extended 150 mg PO DAILY PRN Mood 12/07/24 02/10/25 History release 24 hr baclofen 10 mg tablet 10 mg PO TID #90 tabs 01/10/25 02/10/25 Rx hydrocodone 10 mg-acetaminophen 1 tab PO TID #90 tabs 01/10/25 02/10/25 Rx 325 mg tablet New Prescriptions to Start Prescriptions: Allergies Allergy/AdvReac Type Severity Reaction Status Date / Time gabapentin Allergy Verified 12/07/24 08:41 hyaluronic acid (From AdvReac Severe Verified 12/07/24 08:41 Supartz) Assessment and Plan *Assessment and plan (1) Lumbar radiculopathy: Status: Chronic Category: Medical Code(s): M54.16 - Radiculopathy, lumbar region (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 Qualifiers: Spinal osteoarthritis complication: with radiculopathy Qualified Code(s): M47.26 - Other spondylosis with radiculopathy, lumbar region Category: Medical Code(s): M47.816 - Spondylosis without myelopathy or radiculopathy, lumbar region Plan We will refill her Causey and provide a 1 month supply of this medication. Patient will return to clinic in 1 month. Risks and benefits of the medication have been explained in detail to the patient. The patient does understand the risk of dependence on the medication when given over a prolonged period. Patient has been advised of risks of oversedation with the prescribed medication. Narcan has been offered to the paitent in the event of oversedation. Patient has been advised that a family member should also be educated regarding administration of Narcan. The patient has been advised to consult with his/her primary care provider and pharmacist regarding drug-drug interaction of medications currently prescribed. Patient has been prescribed a controlled substance after being counseled on the medication, medication safety, and possible side effects. Opioid contract was reviewed and signed by the patient, and that they have agreed to all of the terms set forth by our compliance program. A UDS is needed to verify patient's compliance with our office pain contract. This is ordered based off specific treatments related to chronic pain with the potential to abuse certain medications. Patient has been instructed to contact the clinic with any concerns before the next appointment. Dr. Barnett has reviewed this note and agrees with this plan of care. This note was dictated using voice recognition software and make contain errors or omissions.
--- OUTSIDE RECORDS SUMMARY | 2025-02-10 11:27 | XMS_ITS | CCD ---
Author Organization Unknown Care Team Providers Care Public Relations Account Supervisor Name Role Phone Non Engaged, [facility] Primary Care Provider Unav ailable Unavailable Chronic Care Management Unavaila ble Summary Purpose DataExchange Insurance Providers Payer name Policy type / Coverage type Covered green party ID Effective Begin Date Effective End Date [facility] [id number] Unknown Unknown Family History Family History data not found Medication Administered No Medication Administered data Reason For Visit No Reason For Visit data Medical Equipment No Medical Equipment data Advance Directives No Advance Directive data
--- OUTSIDE RECORDS SUMMARY | 2025-02-10 11:28 | XMS_ITS | CCD ---
Author Organization Unknown Care Team Providers Care Info Analyst Name Role Phone Non Engaged, [facility] Primary Care Provider Unav ailable Unavailable Chronic Care Management Unavaila ble Summary Purpose DataExchange Insurance Providers Payer name Policy type / Coverage type Covered republican ID Effective Begin Date Effective End Date [facility] [id number] Unknown Unknown Family History Family History data not found Medication Administered No Medication Administered data Reason For Visit No Reason For Visit data Medical Equipment No Medical Equipment data Advance Directives No Advance Directive data
== END 2025-02-10 23:59 | disposition home or self-care (01) ==
PROVIDERS: PCP Family Medicine; Visit Provider Nurse Practitioner Family
DX: M47.26 Other spondylosis with radiculopathy, lumbar region (principal); Z79.891 Long term (current) use of opiate analgesic; Z79.899 Other long term (current) drug therapy
CPT/HCPCS: 99212; G0463

== ENCOUNTER 2025-02-23 11:04 | Outpatient (RCR) | payer MEDICARE, SELFPAY | END 2025-02-23 23:59 | disposition home or self-care (01) | LOC: PT 11:04 | PROVIDERS: Visit Provider Physician Assistant Medical | DX: M47.26 Other spondylosis with radiculopathy, lumbar region (principal) | CPT/HCPCS: 97163 ==

== ENCOUNTER 2025-03-18 08:56 | Outpatient (CLI) | payer MEDICARE, SELFPAY ==
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
--- OUTSIDE RECORDS SUMMARY | 2025-01-27 12:45 | XMS_ITS | Encounter Summary ---
Author Organization [facility] Address [address] [place] [address] Care Team Providers Care Cigarette Stamper Name Role Phone Ulises Judd MD Primary Care Provider + Reason for Visit * Reason Comments Blister Popped and has green ivy drainage located on right lateral calf Upper Extremity Issue Swelling in right hand Encounter Details Date Type Department Care Team (Late st Contact Info) Description 01/27/2025 12:45 PM EDT Office Visit [facility] [address] [place] [address] Judy Friend, PA-C [address] [place] [address] Cellulitis of right lower extremity [...] CERVICAL CORPECTOMY WITH FUSION 07/2022 Dr. Trevizo, [facility] Neurosurgery SECTION 02/1984 CHOLECYSTECTOMY 2002 COLONOSCOPY [...] No follow-ups on file. [place]ELLA [place] [facility] [address] [facility] [phone] documented in this encounter Plan of Treatment Not on file documented as of this encounter Visit Diagnoses Diagnosis Cellulitis of right lower extremity- Primary Right wrist pain Pain in joint, forearm Essential hypertension Unspecified essential hypertension documented in this encounter Care Teams Cigarette Stamper Relationship Specialty Start Date End Date Ulises Judd MD [address] [place] [address] PCP - General Family Medicine 10/11/21 documented as of this encounter
--- NOTE | 2025-03-18 08:58 | CT_ITS ---
FINAL REPORT TECHNIQUE: CT examination of the lumbar spine was performed without the administration of intravenous contrast using axial images from the lower thoracic region into the pelvis. Multiplanar reconstructions in the sagittal and coronal planes were subsequently performed. This study was performed with techniques to keep radiation doses as low as reasonably achievable (ALARA). Individualized dose reduction techniques using automated exposure control or adjustment of mA and/or kV according to the patient's size were employed. CLINICAL HISTORY: LUMBAR SPONDYLOSIS COMPARISON: MRI 11/11/2024, CT of the abdomen 06/02/2024. FINDINGS: CT LUMBAR SPINE: There are chronic endplate deformities at the L4-5 level, that may be secondary to either chronic discitis or longstanding degenerative disc changes with endplate microfractures. No acute fracture is identified. Moderate levoscoliosis is present. There is lateral subluxation of L4 on L5 of up to 15 mm. Multilevel canal stenosis is present, most pronounced at the L4-5 level, also seen at the L3-4 level, and to a lesser extent at other levels. There is advanced multilevel neural foraminal narrowing present. IMPRESSION: 1. There are severe chronic changes of the lumbar spine, with advanced canal stenosis and neural foraminal narrowing most pronounced at the L4-5 level. 2. No acute process. Reviewed, Interpreted and Dictated by Nader Garcia MD Transcribed by Millicent White Authenticated and [facility]
--- OUTSIDE RECORDS SUMMARY | 2025-03-18 09:00 | XMS_ITS | Encounter Summary ---
Author Organization [facility] Address [address] [place] [address] Care Team Providers Care Annealing Oven Operator Name Role Phone Ulises Judd MD Primary Care Provider [phone] Reason for Visit * Reason Comments Med Refill Encounter Details Date Type Department Care Team (Late st Contact Info) Description 01/21/2023 Refill [place] [facility] [address] [place] [address] Nathan Feliciano MD [address] [place] [address] Cervical myelopathy with cervical radiculopathy [...] drink first t inna in the morning (EYE-BLEACHER GROUNDWOOD PULP) to steady your nerves or to get [...] Description 03/21/2025 4:00 PM EDT Office Visit [place] [facility] [address] [place] [address] Trino Trevizo MD [address] [facility] [address] [place] [address] documented as of this encounter [...] documented as of this encounter Care Teams Annealing Oven Operator Relationship Specialty Start Date End Date Ulises Judd MD [address] [place] [address] PCP - General 07/27/21 documented as of this encounter
--- OUTSIDE RECORDS SUMMARY | 2025-03-18 09:00 | XMS_ITS | Encounter Summary ---
Author Organization Healthcare Address [address] [place] [address] Care Team Providers Care Pipefitter Welder Name Role Phone Ulises Judd MD Primary Care Provider [phone] Reason for Visit * Reason Comments Med Refill Encounter Details Date Type Department Care Team (Late st Contact Info) Description 01/21/2023 Refill [place] [facility] [address], [address]st [place] [address] Trino Trevizo MD [address] [place] [address] Status post cervical spinal fusion [...] drink first t inna in the morning (EYE-CONCRETE POINTER) to steady your nerves or to get [...] Description 03/21/2025 4:00 PM EDT Office Visit [facility] [address], [address] [place] [address] Trino Trevizo MD [address] [facility] [address] [place] [address] documented as of this encounter Visit Diagnoses Diagnosis Status post cervical spinal fusion Arthrodesis status documented in this encounter Additional Health Concerns Assessment Noted Time A fall risk assessment has been complete d for the patient 01/20/2023 12:42 PM EDT A Body Mass Index follow-up plan has been documented for the patient 01/20/2023 1:45 PM EDT documented as of this encounter Care Teams Pipefitter Welder Relationship Specialty Start Date End Date Ulises Judd MD [address] [place] [address] PCP - General 07/27/21 documented as of this encounter
--- OUTSIDE RECORDS SUMMARY | 2025-03-18 09:01 | XMS_ITS | Encounter Summary ---
Author Organization [facility] Address [address] [place] [id number] Care Team Providers Care Head Bander And Liner Operator Name Role Phone Ulises Judd MD Primary Care Provider + Encounter Details Date Type Department Care Team (Late st Contact Info) Description 10/04/2024 Results Follow-Up [facility] FAMILY MEDICINE [address] [place] [address] Ulises Judd MD [address] [place] [address] Social History Tobacco Use Types [...] on filedocumented in this encounter Care Teams Head Bander And Liner Operator Relationship Specialty Start Date End Date Ulises Judd MD [address] [place] [address] PCP - General Family Medicine 10/11/21 documented as of this encounter
--- OUTSIDE RECORDS SUMMARY | 2025-03-18 09:01 | XMS_ITS | Encounter Summary ---
Author Organization [facility] Address [address] [place] [address] Care Team Providers Care Life Insurance Actuary Name Role Phone Ulises Judd MD Primary Care Provider + Reason for Visit * Reason Comments Med Refill Encounter Details Date Type Department Care Team (Late st Contact Info) Description 02/16/2025 Refill [facility] FAMILY MEDICINE [address] [place] [address] Ulises Judd MD [address] [place] [address] Social History Tobacco Use Types [...] on filedocumented in this encounter Care Teams Life Insurance Actuary Relationship Specialty Start Date End Date Ulises Judd MD [address] [facility] [place] [address] PCP - General Family Medicine 10/11/21 documented as of this encounter
--- OUTSIDE RECORDS SUMMARY | 2025-03-18 09:01 | XMS_ITS | Encounter Summary ---
Author Organization [facility] Address [address] [place] [address] Care Team Providers Care Nailer Operator Name Role Phone Ulises Judd MD Primary Care Provider [phone] Encounter Details Date Type Department Care Team ([facility] st Contact Info) Description 11/11/2024 Orders Only External Location [address] [place] [address] Provider, External Social History Tobacco Use Types [...] drink first t inna in the morning (EYE-CUSTODIAN ATHLETIC EQUIPMENT) to steady your nerves or to get [...] Description 03/21/2025 4:00 PM EDT Office Visit [place] [facility] [address], 1st [place] [address] Trino Trevizo MD [address] [facility] [address] [place] [address] documented as of this encounter [...] documented as of this encounter Care Teams Nailer Operator Relationship Specialty Start Date End Date Ulises Judd MD [address] [facility] [place] [address] PCP - General 07/27/21 documented as of this encounter
--- OUTSIDE RECORDS SUMMARY | 2025-03-18 09:01 | XMS_ITS | Encounter Summary ---
Author Organization [facility] Address [address] [place] [address] Care Team Providers Care Breaker Boss Name Role Phone Ulises Judd MD Primary Care Provider + Reason for Visit * Reason Onset Date Comments Med Refill 02/16/2025 Encounter Details Date Type Department Care Team (Late st Contact Info) Description 02/16/2025 Refill [facility] FAMILY MEDICINE [address] [place] [address] Ulises Judd MD [address] [place] [address] Essential hypertension Social History Tobacco [...] AM EDT documented as of this encounter Miscellaneous Notes * Telephone Encounter - Desirae Palmer RegSched Rep - 02/16/2025 1:42 PM EDT Caller: [facility] [address] - [phone] [place] [phone] FX Relationship: Pharmacy Best call back number: [phone] Requested Prescriptions: Requested Prescriptions Pending Prescriptions Disp Refills bumetanide (BUMEX) 1 MG tablet 30 tablet 0 Sig: Take 1 tablet by mouth Daily. Pharmacy where request should be sent: [facility] [address] - [phone] [facility] [phone] FX Last office visit with prescribing clinician: 12/02/2024 Last telemedicine visit with prescribing clinician: Visit date not found Next office visit with prescribing clinician: Visit date not found Additional details provided by patient: PATIENT HAS BEEN TAKING 2 MG AND THE PHARMACY HAS REQUESTEDTHE REFILL REFLECT THAT. Does the patient have less than a 3 day supply: [x] Yes [] No Would you like a call back once the refill request has been completed: [] Yes [] No If the office needs to give you a call back, can they leave a voicemail: [] Yes [] No Ita Mckinney 02/16/25 13:42 EDT documented in this encounter Plan of Treatment Not on file documented as of this encounter Visit Diagnoses Diagnosis Essential hypertension Unspecified essential hypertension documented in this encounter Care Teams Breaker Boss Relationship Specialty Start Date End Date Ulises Judd MD [facility] [address] [place] [address] PCP - General Family Medicine 10/11/21 documented as of this encounter
--- OUTSIDE RECORDS SUMMARY | 2025-03-18 09:01 | XMS_ITS | Clinical Summary ---
Author Organization [employer] ([place], [place], [place], [place]) Address [address] [place] [address] Care Team Providers Care Supervisor Blasting Name Role Phone Unavailable Primary Care Provider [...]
--- OUTSIDE RECORDS SUMMARY | 2025-03-18 09:01 | XMS_ITS | Encounter Summary ---
Author Organization [facility] Address [address] [place] [id number] Care Team Providers Care Blow Off Worker Name Role Phone Ulises Judd MD Primary Care Provider + Encounter Details Date Type Department Care Team (Late st Contact Info) Description 11/08/2024 Results Follow-Up [facility] FAMILY MEDICINE [address] [place] [address] Chloe Muniz PA [address] [place] [address] Social History Tobacco Use Types [...] on filedocumented in this encounter Care Teams Blow Off Worker Relationship Specialty Start Date End Date Ulises Judd MD [address] [place] [address] PCP - General Family Medicine 10/11/21 documented as of this encounter
--- OUTSIDE RECORDS SUMMARY | 2025-03-18 09:01 | XMS_ITS | Encounter Summary ---
Author Organization [facility] Address [address] [place] [address] Care Team Providers Care Corporation Secretary Name Role Phone Ulises Judd MD Primary [...] on filedocumented in this encounter Care Teams Corporation Secretary Relationship Specialty Start Date End Date Ulises Judd MD [facility] [address] PCP - General Family Medicine 10/11/21 documented as of this encounter
--- OUTSIDE RECORDS SUMMARY | 2025-03-18 09:01 | XMS_ITS | Encounter Summary ---
Author Organization [employer] ([place], [place], [place], [place]) Address [address] [place] [address] Care Team Providers Care Front End Ui Developer Name Role Phone Unavailable Primary Care Provider Unavailabl e Encounter Details Date Type Department Care Team (Late st Contact Info) Description 04/12/2020 Transcribed Document [facility] [place] [address] [place] [address] ProviderAbdiel MD [address] [place] [address] Social History Tobacco Use Types Packs/Day Years [...]
--- OUTSIDE RECORDS SUMMARY | 2025-03-18 09:01 | XMS_ITS | Encounter Summary ---
Author Organization [employer] ([place], [place], [place], [place]) Address [address] [place] [address] Care Team Providers Care Saddle Lining Stitcher Name Role Phone Unavailable Primary Care Provider Unavailabl e Encounter Details Date Type Department Care Team (Late st Contact Info) Description 04/13/2020 Transcribed Document [facility] [place] Family Medicine [address] [place] [address] ProviderAbdiel MD [address] [place], [place] [id number] Social History Tobacco Use Types Packs/Day Years [...] including vitamins, herbs, eye drops, creams, and svcs-kqw-uqqffdr medicines. ??? Any problems you or family [...] 06/06/2003 Document Revised: 05/29/2018 Document Reviewed: 12/20/2016 [employer] Patient Education ? 2020 [employer] Atrial Fibrillation Atrial fibrillation is a [...] these instructions at home: Medicines ??? Take syct-mhq-ykifqdx and prescription medicines only as told by [...] 03/25/2009 Document Revised: 08/20/2018 Document Reviewed: 08/07/2018 [employer] Patient Education ? 2020 [employer]. Radiology Electrophysiology Study An electrophysiology (EP) study [...] including vitamins, herbs, eye drops, creams, and niqp-jhw-swczafs medicines. ??? Any problems you or family [...] 12/04/2010 Document Revised: 02/06/2017 Document Reviewed: 12/23/2016 [employer] Patient Education ? 2020 [employer] documented in this encounter Plan of Treatment Not on file documented as of this encounter Visit Diagnoses Not on filedocumented in this encounter
--- OUTSIDE RECORDS SUMMARY | 2025-03-18 09:01 | XMS_ITS | Encounter Summary ---
Author Organization [facility] Address [address] [place] [address] Care Team Providers Care Collar Sewer Name Role Phone Ulises Judd MD Primary Care Provider [phone] Reason for Visit * Reason Comments Med Refill Encounter Details Date Type Department Care Team (Late st Contact Info) Description 05/21/2023 Refill [place] [facility] [address], 1st [place] [address] Trino Trevizo MD [address] [place] [address] Cervical myelopathy with cervical radiculopathy [...] first t inna in the morning (EYE-CONCRETE STONE FABRICATING SUPERVISOR) to steady your nerves or to get [...] Sultana PA - 05/21/2023 1:33 PM EST [facility] request #: [id number] was reviewed and appropriate. Refill for Lyrica 75 mg BID sent to Dr. Trevizo for authorization. documented in this encounter Plan of Treatment Upcoming Encounters Date Type Department Care Team (Late st Contact Info) Description 03/21/2025 4:00 PM EDT Office Visit [place] [facility] [address], [address]st [place] [address] Trino Trevizo MD [address] [place] [address] documented as of this encounter Visit Diagnoses [...] documented as of this encounter Care Teams Collar Sewer Relationship Specialty Start Date End Date Ulises Judd MD [address] [place] [address] PCP - General 07/27/21 documented as of this encounter
--- OUTSIDE RECORDS SUMMARY | 2025-03-18 09:01 | XMS_ITS | Encounter Summary ---
Author Organization [employer] ([place], [place], [place], [place]) Address [address] [place] [address] Care Team Providers Care Collateral Clerk Name Role Phone Unavailable Primary Care Provider Unavailabl e Encounter Details Date Type Department Care Team (Late st Contact Info) Description 04/12/2020 Transcribed Document [facility] [place] Family Medicine [address] [place] [address] ProviderAbdiel MD [address] [place], [place] [address] Social History Tobacco Use Types Packs/Day Years [...] Allergies (1) Active Reaction Supartz None Documented [facility] EP Discharge Summary: Primary Gluing Machine Feeder: Dr. Hernandez PCP: Saundra Angel Consults: Dr. [...] monitor study about three months ago at [facility] when she was diagnosed with PAF. She [...] addressed. Followup Appointments: PCP as scheduled Primary Gluing Machine Feeder as scheduled EP in 1 month Patient [...]
--- OUTSIDE RECORDS SUMMARY | 2025-03-18 09:01 | XMS_ITS | Encounter Summary ---
Author Organization [facility] Address [address] [place] [id number] Care Team Providers Care Computer Network And Systems Engineer Name Role Phone Ulises Judd MD Primary Care Provider + Encounter Details Date Type Department Care Team (Late st Contact Info) Description 11/04/2024 Results Follow-Up [facility] FAMILY MEDICINE [address] [place] [address] Chloe Muniz PA [address] [place] [address] Social History Tobacco Use Types [...] on filedocumented in this encounter Care Teams Computer Network And Systems Engineer Relationship Specialty Start Date End Date Ulises Judd MD [address] [place] [address] PCP - General Family Medicine 10/11/21 documented as of this encounter
--- OUTSIDE RECORDS SUMMARY | 2025-03-18 09:01 | XMS_ITS | Encounter Summary ---
Author Organization [employer] ([place], [place], [place], [place]) Address [address] [place] [address] Care Team Providers Care System Designer Name Role Phone Unavailable Primary Care Provider Unavailabl e Encounter Details Date Type Department Care Team (Late st Contact Info) Description 04/13/2020 Transcribed Document [facility] Family Medicine [facility] [place] [address] ProviderAbdiel MD [address] [place], [place] [address] Social History Tobacco Use Types Packs/Day Years [...] Allergies (1) Active Reaction Supartz None Documented [facility] EP Discharge Summary: Primary Recycling Specialist: Dr. Hernandez PCP: Saundra Angel Consults: Dr. [...] monitor study about three months ago at [facility] when she was diagnosed [...] addressed. Followup Appointments: PCP as scheduled Primary Recycling Specialist as scheduled EP in 1 month Patient has been instructed on and verbalized an understanding of the above discharge instructions. Plan has been discussed and is in agreement with Dr. Jean-Baptiste documented in this encounter Plan of Treatment Not on file documented as of this encounter Visit Diagnoses Not on filedocumented in this encounter
--- OUTSIDE RECORDS SUMMARY | 2025-03-18 09:01 | XMS_ITS | Encounter Summary ---
Author Organization [facility] Address [address] [place] [address] Care Team Providers Care Optical Fabrication Technician Name Role Phone Ulises Judd MD Primary Care Provider [phone] Reason for Visit * Reason Comments Med Refill Encounter Details Date Type Department Care Team (Late st Contact Info) Description 12/23/2023 Refill [place] [facility] [address], 1st [place] [address] Trino Trevizo MD [address] [place] [address] Status post cervical spinal fusion; [...] drink first t inna in the morning (EYE-BEHAVIORAL HEALTH CLINICIAN) to steady your nerves or to get [...] Description 03/21/2025 4:00 PM EDT Office Visit [facility] [address], [address] [place] [address] Trino Trevizo MD [address] [facility] [address] [place] [address] documented as of this encounter Visit Diagnoses [...] documented as of this encounter Care Teams Optical Fabrication Technician Relationship Specialty Start Date End Date Ulises Judd MD [address] [place] [address] PCP - General 07/27/21 documented as of this encounter
--- OUTSIDE RECORDS SUMMARY | 2025-03-18 09:01 | XMS_ITS | Encounter Summary ---
Author Organization [facility] Address [address] [place] [id number] Care Team Providers Care Commander Police Reserves Name Role Phone Ulises Judd MD Primary Care Provider + Encounter Details Date Type Department Care Team (Late st Contact Info) Description 09/30/2024 Results Follow-Up [facility] FAMILY MEDICINE [address] [place] [address] Ulises Judd MD [address] [place] [address] Social History Tobacco Use Types [...] on filedocumented in this encounter Care Teams Commander Police Reserves Relationship Specialty Start Date End Date Ulises Judd MD [address] [place] [address] PCP - General Family Medicine 10/11/21 documented as of this encounter
--- OUTSIDE RECORDS SUMMARY | 2025-03-18 09:01 | XMS_ITS | Encounter Summary ---
Author Organization [employer] ([place], [place], [place], [place]) Address [address] [place] [address] Care Team Providers Care Energy Infrastructure Engineer Name Role Phone Unavailable Primary Care Provider Unavailabl e Encounter Details Date Type Department Care Team (Late st Contact Info) Description 04/12/[address] [facility] [place] Family Medicine [address] [place] [address] ProviderAbdiel MD [address] [place], [place] [id number] Social History Tobacco Use Types Packs/Day Years [...] Spiritual Care Spiritual Care Referred by : Senior Commissions Analyst initiated Reason for Visit : Initial Ministry Provided to : Patient Intervention/Comment/Summary Points : Door closed quiet within. Chap. prayed o/s pt. room. Focus: restorative sleep followed by renewed strength and robert in AM coupled with renewed realization of God's presence, peace, and eternal provision for body, soul, and spirit thoughout hospital stay. TORIE TEAGUE Chaplain - 04/12/2020 0:59 EDT documented in this encounter Plan of Treatment Not on file documented as of this encounter Visit Diagnoses Not on filedocumented in this encounter
--- OUTSIDE RECORDS SUMMARY | 2025-03-18 09:01 | XMS_ITS | Encounter Summary ---
Author Organization [facility] Address [address] [place] [id number] Care Team Providers Care Area Attendant Name Role Phone Ulises Judd MD Primary Care Provider + Encounter Details Date Type Department Care Team (Late st Contact Info) Description 10/11/2024 Results Follow-Up [facility] FAMILY MEDICINE [address] [place] [address] Chloe Muniz PA [address] [place] [address] Social History Tobacco Use Types [...] specified documented in this encounter Care Teams Area Attendant Relationship Specialty Start Date End Date Ulises Judd MD [address] [facility] [place] [address] PCP - General Family Medicine 10/11/21 documented as of this encounter
--- OUTSIDE RECORDS SUMMARY | 2025-03-18 09:01 | XMS_ITS | Encounter Summary ---
Author Organization [employer] ([place], [place], [place], [place]) Address [address] [place] [address] Care Team Providers Care Hospital Unit Clerk Name Role Phone Unavailable Primary Care Provider Unavailabl e Encounter Details Date Type Department Care Team (Late st Contact Info) Description 04/12/2020 Transcribed Document [facility] [place] [address] [place] [address] ProviderAbdiel MD [address] [place] [address] Social History Tobacco Use Types Packs/Day Years [...] On: 04/12/2020 11:09 EDT by MAYNOR SEXTON Rn-Traffic Personnel Supervisor Initial Assessment I Previously Documented Living Environment : No qualifying data available. Living Situation : Home Patient Lives With : Spouse Emergency Contact #1 : Efren Emergency Contact #1 Phone Number : Emergency Contact #1 Relationship : [phone] Emergency Contact #2 : none Emergency Contact #2 Phone Number : none Emergency Contact #2 Relationship : n one Enter Doctors Name : Dr. London Does Patient have PCP Listed? : Yes Legal Guardian : No MAYNOR SEXTON Rn-Traffic Personnel Supervisor - 04/13/2020 11:09 EDT Initial Assessment II Sensory and Motor Deficits : None Current Home Treatments and Equipment : None MAYNOR SEXTON Rn-Traffic Personnel Supervisor - 04/13/2020 11:09 EDT Discharge Needs I Anticipated Discharge Date : 04/14/2020 EDT Anticipated Discharge To, CM : Home with family care Current Home Treatment/Equipment : Current Home Treatment/Equipment No qualifying data available. Post Acute/Home Treatments : None Documentation Status Complete : Yes MAYNOR SEXTON Rn-Traffic Personnel Supervisor - 04/13/2020 11:09 EDT Discharge Needs II Professional Skilled Services : Professional Skilled Services No qualifying data available. Needs Assistance with Transportation : No Discharge Options Discussed with Patient : Discharge transportation, DME, Home Health, Outpatient services MAYNOR SEXTON Rn-Traffic Personnel Supervisor - 04/13/2020 11:09 EDT documented in this encounter Plan of Treatment Not on file documented as of this encounter Visit Diagnoses Not on filedocumented in this encounter
--- OUTSIDE RECORDS SUMMARY | 2025-03-18 09:01 | XMS_ITS | Encounter Summary ---
Author Organization [facility] Address [address] [place] [address] Care Team Providers Care Counter Dish Carrier Name Role Phone Ulises Judd MD Primary Care Provider [phone] Reason for Visit * Reason Comments Med Refill Encounter Details Date Type Department Care Team (Late st Contact Info) Description 05/20/2024 Refill [place] [facility] [address], [address]st [place] [address] Trino Trevizo MD [address] [place] [address] Status post cervical spinal fusion [...] drink first t inna in the morning (EYE-BOOK STORE ASSOCIATE) to steady your nerves or to get [...] Visit [place] [facility] [address], [address] [place] [address] Trino Trevizo MD [address] [place] [address] documented as of this encounter [...] documented as of this encounter Care Teams Counter Dish Carrier Relationship Specialty Start Date End Date Ulises Judd MD [address] [place], [place] [address] PCP - General 07/27/21 documented as of this encounter
--- OUTSIDE RECORDS SUMMARY | 2025-03-18 09:01 | XMS_ITS | Encounter Summary ---
Author Organization [facility] ([place], [place], [place], [place]) Address [address] [place] [address] Care Team Providers Care Floor Cashier Name Role Phone Unavailable Primary Care Provider Unavailabl e Encounter Details Date Type Department Care Team (Late st Contact Info) Description 04/13/2020 Transcribed Document [facility] [place] Family Medicine [address] [place] [address] ProviderAbdiel MD [address] [place] [address] Social History Tobacco Use Types [...] Abdiel ProviderMD - 04/13/2020 9:40 AM CDT [facility] [place] [address] MICHAELLE LEONARD :1960 Visit Time:04/11/2020 Your [...] been made Where: [address] [place] [address]- Follow Up with RUSSELL GARCIA NP-FAM When 04/24/2020 10:30 AM EDT Comments Appointment has been made Where: [address] [place] [address]- Medications What How Much When Instructions Next [...] including vitamins, herbs, eye drops, creams, and oerd-hlp-hjubwwr medicines. ??? Any problems you or family [...] 06/06/2003 Document Revised: 05/29/2018 Document Reviewed: 12/20/2016 [employer] Patient Education ?? 2020 [employer]. Electrophysiology Study An electrophysiology (EP) study is [...] including vitamins, herbs, eye drops, creams, and xlvj-dcq-alydecg medicines. ??? Any problems you or family [...] 12/04/2010 Document Revised: 02/06/2017 Document Reviewed: 12/23/2016 [employer] Patient Education ?? 2020 Care.com. Atrial Fibrillation Atrial fibrillation is a type [...] these instructions at home: Medicines ??? Take ahnj-zgj-iezpqwq and prescription medicines only as told by [...] 03/25/2009 Document Revised: 08/20/2018 Document Reviewed: 08/07/2018 [employer] Patient Education ?? 2020 [employer] pantoprazole (oral/injection) (owen TOE pra [...] a broken bone while taking this medicine local company intermodal truck driver or more than once per day. What [...] may report side effects to FDA at 3-312-NIJ-4616. What other drugs will affect pantoprazole? Tell your doctor about all your other medicines, especially: ?? digoxin; ?? methotrexate; or ?? a diuretic or 'water pill.' This list is not complete. Other drugs may affect pantoprazole, including prescription and hezh-yof-rypnxcs medicines, vitamins, and herbal products. Not all [...] to ensure that the information provided by [employer]. ('[employer]') is accurate, up-to-date, and complete, but no guarantee is made to that effect. Drug information contained herein may be time sensitive. [employer] information has been compiled for use by healthcare practitioners and consumers in the [place] and therefore [employer] does not warrant that uses outside of the [place] are appropriate, unless specifically indicated otherwise. [employer]'s drug information does not endorse drugs, diagnose patients or recommend therapy. [facility] drug information is an informational resource designed [...] effective or appropriate for any given patient. [facility] does not assume any responsibility for any aspect of healthcare administered with the aid of information [facility] provides. The information contained herein is not intended to cover all possible uses, directions, precautions, warnings, drug interactions, allergic reactions, or adverse effects. If you have questions about the drugs you are taking, check with your doctor, nurse or pharmacist. Copyright 6770-2449 [employer]. Version: 19.02. Revision Date: 12/23/2017. Emergency Awareness [...] Assistance with quitting is available by contacting 7-215-DETQ-NOW. This is a free resource providing counseling, [...] and 14.9 ) ANC #: 8 K/uL [place] Percent Man: 3 % -- Normal range [...] range between ( 0.0 and 7.0 ) [place] #: 0.60 K/uL -- Normal range between ( 0.16 and 1.00 ) Eos #: 0.12 x10(3)/uL -- Normal range between ( 0.00 and 0.80 ) [place] %: 5.3 % -- Normal range between [...] was given the opportunity to ask questions. Patient/Line Installation Supervisor Name: Patient/Line Installation Supervisor Signature: Relationship to Patient: Clinician/Hospital Line Installation Supervisor Signature: Date: documented in this encounter Plan of Treatment Not on file documented as of this encounter Visit Diagnoses Not on filedocumented in this encounter
--- OUTSIDE RECORDS SUMMARY | 2025-03-18 09:01 | XMS_ITS | Encounter Summary ---
Author Organization [facility] Address [address] [place] [address] Care Team Providers Care Trapper Bird Name Role Phone Ulises Judd MD Primary Care Provider [phone] Encounter Details Date Type Department Care Team ([facility] st Contact Info) Description 11/05/2024 Orders Only External Location [address] [place] [address] Provider, External Social History Tobacco Use Types [...] drink first t inna in the morning (EYE-VOCATIONAL EDUCATION PROFESSIONAL) to steady your nerves or to get [...] Description 03/21/2025 4:00 PM EDT Office Visit [facility] [address] [place] [address] Trino Trevizo MD [address] [facility] [address] [place] [address] documented as of this encounter [...] documented as of this encounter Care Teams Trapper Bird Relationship Specialty Start Date End Date Ulises Judd MD [address] [facility] [place], [place] [id number] PCP - General 07/27/21 documented as of this encounter
--- OUTSIDE RECORDS SUMMARY | 2025-03-18 09:01 | XMS_ITS | Encounter Summary ---
Author Organization [employer] ([place], [place], [place], [place]) Address [address] [place] [address] Care Team Providers Care Vulcanized Fiber Unit Operator Name Role Phone Unavailable Primary Care Provider Unavailabl e Encounter Details Date Type Department Care Team (Late st Contact Info) Description 04/13/2020 Transcribed Document [facility] [place] Family Medicine [address] [place] [address] ProviderAbdiel MD [address] [place] [address] Social History Tobacco Use Types Packs/Day Years [...] On: 04/13/2020 11:34 EDT by CARROLL ROMERO, drywall taper helper Documentation Discharge Date/Time : 04/13/2020 11:30 EDT Patient Disposition, General : Discharge Discharge To : Home with ambulatory/outpatient follow-up Education Comment : CARROLL Garnett, RN - 04/13/2020 11:34 EDT documented in this encounter Plan of Treatment Not on file documented as of this encounter Visit Diagnoses Not on filedocumented in this encounter
--- OUTSIDE RECORDS SUMMARY | 2025-03-18 09:01 | XMS_ITS | Clinical Summary ---
Author Organization [facility] Address [address] [place] [address] Care Team Providers Care In Room Dining Server Name Role Phone Ulises Judd MD Primary Care Provider + Allergies Active Allergy Reactions Criticality Noted Date Comments Cross-Linked Hyaluronate Anaphylaxis,Other (See Comments) High 05/22/2021 Vital signs bottomed out. Gabapentin Hallucinations Medium 02/12/2022 Medications Zinc 50 MG tablet Take 1 tablet by mouth Daily. 1 Active Hypertonic Nasal Wash (Sinus Rinse Bottle Kit) pack 1 application into the nostril(s) as directed by provider 3 (Three) Times a Day. 2 Active thiamine (VITAMIN B1) 50 MG tablet Take 1 tablet by mouth Daily. Active multivitamin with minerals (GNP Century Mature Women's 50+) tablet tablet Take 1 tablet by mouth Daily. Active nitroglycerin (NITROSTAT) 0.[address] 1 tablet under the tongue Every 5 (Five) Minutes As Needed for Chest Pain. 3 Active pregabalin (LYRICA) 75 MG capsule Take 1 capsule by mouth 2 (Two) Times a Day. Active alendronate (FOSAMAX) 70 MG tabletIndications :Age-related osteoporosis without current pathological fracture TAKE ONE TABLET BY MOUTH ONCE a WEEK 4 tablet 11 4 Active GNP Vitamin B-12 500 MCG tablet TAKE ONE TABLET BY MOUTH EVERY WEEK 4 tablet 12 4 Active venlafaxine (EFFEXOR) 150 MG tablet sustained-release 24 hour 24 hr tabletIndications :Anxiety disorder, unspecified TAKE TWO TABLETS BY MOUTH EVERY DAY --TAKE WITH FOOD-- 60 tablet 5 4 Active HYDROcodone-aceta minophen (NORCO) 10-325 MG per tablet Take 1 tablet by mouth Every 6 (Six) Hours As Needed for Moderate Pain or Severe Pain. 4 Active baclofen (LIORESAL) 10 MG tablet Take 1 tablet by mouth 3 (Three) Times a Day. 5 Active topiramate (TOPAMAX) 50 MG tablet TAKE TWO TABLETS BY MOUTH TWICE DAILY 120 tablet 5 5 Active metoprolol succinate XL (TOPROL-XL) 25 MG 24 hr tabletIndications :Essential hypertension TAKE ONE TABLET BY MOUTH EVERY DAY 90 tablet 1 5 Active methocarbamol (ROBAXIN) 750 MG tabletIndications :Abdominal spasms Take 1 tablet by mouth 3 (Three) Times a Day As Needed for Muscle Spasms. 90 tablet 1 5 Active pramipexole (MIRAPEX) 1 MG tablet Take 1 tablet by mouth 3 times a day. 90 tablet 2 5 Active levothyroxine (SYNTHROID, LEVOTHROID) 175 MCG tablet Take 1 tablet by mouth Daily. 90 tablet 5 Active amoxicillin (AMOXIL) 500 MG capsuleIndication s:Acute bronchitis and bronchiolitis Take 1 capsule by mouth 3 (Three) Times a Day. 21 capsule 5 Active Additional Information Patient not taking.Reported on 01/27/2025 albuterol sulfate HFA 108 (90 Base) MCG/ACT inhalerIndication s:Acute bronchitis and bronchiolitis Inhale 2 puffs Every 4 (Four) Hours As Needed for Wheezing. 18 g 1 5 Active potassium chloride (MICRO-K) 10 MEQ CR capsuleIndication s:Essential hypertension TAKE ONE CAPSULE BY MOUTH TWICE DAILY 60 capsule 3 5 Active mupirocin (BACTROBAN) 2 % ointmentIndicatio ns:Cellulitis of right lower extremity Apply 1 Application topically to the appropriate area as directed 3 (Three) Times a Day. 30 g 5 Active vitamin C (ASCORBIC ACID) 500 MG tablet TAKE ONE TABLET BY MOUTH EVERY DAY 120 tablet 5 Active pantoprazole (PROTONIX) 40 MG EC tablet TAKE ONE TABLET BY MOUTH EVERY DAY 60 tablet 5 Active bumetanide (BUMEX) 1 MG tabletIndications :Essential hypertension Take 1 tablet by mouth 2 (Two) Times a Day. 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 Yonatan Euceda Acquired hypothyroidism 10/11/2021 [...] PM EDT): Patient will [facility] see [facility] pain management clinic. There has been discussion of a pain pump Spinal cord stimulator status 08/03/2021 Gastroesophageal reflux disease 07/25/2021 REFUGIO (obstructive sleep apnea) 07/25/2021 Encounters Date Type Department Care Team Description 02/16/2025 Refill [facility] [address] [place] [address] Ulises Judd MD Essential hypertension 02/16/2025 Refill [facility] [address] [place] [address] Ulises Judd MD 01/27/2025 12:45 PM EDT Office Visit [facility] [address] [place] [address] Judy Friend, PASalomonC Cellulitis of right lower extremity (Primary Dx); Right wrist pain; Essential hypertension 01/27/2025 Travel 01/25/2025 5:00 PM EDT Telemedicine [facility] [address] [place] [address] [address] [place] [address] Alyssa Cerda APRN Cellulitis of right lower extremity (Primary Dx) 01/19/2025 Refill [facility] [address] [place] [address] Ulises Judd MD Essential hypertension from Last [...] Bianca Michael Alcohol abuse Maternal Grandfather Corona [place] Alcohol abuse Maternal Grandmother Unique [place] Depression Maternal Grandmother Unique [place] Arthritis Mother Citlalli Hoyt Depression Mother Citlalli Hoyt Thyroid disease Mother Citlalli Hoyt Relation Name Status Comments Brother 1 Julito Louden Brother 2 Julito Louden Alive Maternal Aunt 1 Bianca Michael Maternal [...] VACCINE (1 of 2) 2010 COVID-19 Vaccine (3 - 2024-2 6 season) 2025 12/08/2020, 11/10/2020 INFLUENZA VACCINE 03/30/2025 05/27/2023, 04/30/2022 [...] PM EDT Colon cancer screening SCANNED - MAMMO 12/22/2023 from Last 3 Months or Most Recently Relevant to Health Maintenance Results * Cologuard - Stool, Per Rectum (12/05/2024 6:00 PM EDT) Cologuard Negative Negative 12/12/2024 4:40 PM EDT [employer] (CLIA #:[id number]) Comment: The Cologuard (TM) test was performed [...] screened with both Cologuard and colonoscopy. (Axel Foss. et al, N Engl J Med 2014;370(14):1286- 1297) The normal value (reference range) for this assay is negative. COLOGUARD RE-SCREENING RECOMMENDATION: Periodic colorectal cancer screening is an important part of preventive healthcare for asymptomatic individuals at average risk for colorectal cancer. Following a negative Cologuard result, the [place] Cancer Society and U.S. Multi-Society Task Force screening guidelines recommend a Cologuard re-screening interval of 3 years. References: [place] Cancer Society Guideline for Colorectal Cancer Screening: https://www.cancer.org/cancer/hkmay-etezqa-mzbufr/owfistlgo-hwdnabvbf-kclubry/ac s-rec ommendations.html.; Miguel DK, Ivonne CR, Roel AvilaK, Colorectal Cancer Screening: Recommendations for Physicians and Patients from the U.S. Multi-Society Task Force on Colorectal Cancer Screening , Am J Gastroenterology 2017; 112:0898-2196. TEST DESCRIPTION: Composite algorithmic analysis of stool [...] screened with both Cologuard and colonoscopy. (Axel Marcum et al, N Engl J Med 2014;370(14):3128-9966.) Cologuard may produce a false negative or false positive result (no colorectal cancer or precancerous polyp present at colonoscopy follow up). A negative Cologuard test result does not guarantee the absence of CRC or advanced adenoma (pre-cancer). The current Cologuard screening interval is every 3 years. ([place] Cancer Society and U.S. Multi-Society Task Force). Cologuard performance data in a 10,000 patient pivotal study using colonoscopy as the reference method can be accessed at the following location: www.[employer]ie/results. Additional description of the Cologuard test process, warnings and precautions can be found at www.[employer] NanoMedicinesrd.com. Stool specimen (specimen) Specimen from rectum / Unknown 12/05/2024 6:00 PM EDT 12/08/2024 11:19 AM EDT us Ulises Judd MD BODY FLUIDS AND STOOLS O RDERABLES Final Result [employer] (CLIA #:[id number]) [place] [address], * MAMMO Scan (12/22/2023) Anatomical Region Laterality Modality Other Ulises Judd MD CHART REVIEW TABS Fin al Result from Last 3 Months or Most Recently Relevant to Health Maintenance Insurance [facility] MEDICARE ADVANTAGE O Care Teams In Room Dining Server Relationship Specialty Start Date End Date Ulises Judd MD [address] [place] [address] [place] [address] PCP - General Family Medicine 10/11/21
--- OUTSIDE RECORDS SUMMARY | 2025-03-18 09:01 | XMS_ITS | Encounter Summary ---
Author Organization [facility] Address [address] [place] [id number] Care Team Providers Care Funeral Home Director Name Role Phone Ulises Judd MD Primary Care Provider + Encounter Details Date Type Department Care Team (Late st Contact Info) Description 09/22/2024 Results Follow-Up [facility] [address] [place] [address] Ulises Judd MD [address] [place] [address] Social History Tobacco Use Types [...] on filedocumented in this encounter Care Teams Funeral Home Director Relationship Specialty Start Date End Date Ulises Judd MD [address] [place] [address] PCP - General Family Medicine 10/11/21 documented as of this encounter
--- OUTSIDE RECORDS SUMMARY | 2025-03-18 09:01 | XMS_ITS | Encounter Summary ---
Author Organization [employer] ([place], [place], [place], [place]) Address [address] [place] [address] Care Team Providers Care Human Resources Benefits Specialist Name Role Phone Unavailable Primary Care Provider Unavailabl e Encounter Details Date Type Department Care Team (Late st Contact Info) Description 04/12/2020 Transcribed Document [facility] [place] Family Medicine [address] [place] [address] ProviderAbdiel MD [address] [place], [place] [id number] Social History Tobacco Use Types Packs/Day Years [...] Health Plan: [employer] MEDICARE REPL Policy Number: [id number] Authorization Number: [id number] Insurance 2 Health Plan: MEDICAID [place] Policy Number: [id number] Authorization Number: Insurance Primary Name : [facility] MEDICARE REPL Policy Number: [id number] MEDICAID [place] Policy Number: [id number] Historical Authorization Comments-Primary : No Authorization Comments Found DORITA LAWRENCE Rn-Utilization Review - 04/12/2020 8:55 EDT documented in this encounter Plan of Treatment Not on file documented as of this encounter Visit Diagnoses Not on filedocumented in this encounter
--- OUTSIDE RECORDS SUMMARY | 2025-03-18 09:01 | XMS_ITS | Encounter Summary ---
Author Organization [employer] ([place], [place], [place], [place]) Address [address] [place] [address] Care Team Providers Care Implementation Consultant Name Role Phone Unavailable Primary Care Provider Unavailabl e Encounter Details Date Type Department Care Team (Late st Contact Info) Description 04/12/2020 Transcribed Document [facility] [place] [address] [place] [address] ProviderAbdiel MD [address] [place] [address] Social History Tobacco Use Types Packs/Day Years [...] : marky Emergency Contact #1 Relationship : [phone] Emergency Contact #2 : none Emergency Contact #2 Phone Number : none Emergency Contact #2 Relationship : n one Primary Language : Sierra Leonean Communication Barrier : None Buffer Nickel Needed : No Sally Huang Rn - [...] Scale Risk Level : 25-45 Medium Risk Alice Fall Interventions : Adequate lighting Barriers to [...] Source : Measured Height Entry Format : [place] Height, Feet : 5 ft(Converted to: 152 cm, 60 Inch) Height, Inches : 7 Inch(Converted to: 0 ft 7 Inch, 17.78 cm) Clinical Height : 170.18 cm Weight Source : Standing scale Weight Entry Format : [place] Clinical Dosing Weight : 116.82 kg Weight, Pounds : 257 lb Body Surface Area (BSA) : 2.25 m2 Body Mass Index : 40.3 kg/m2 (>HHI) [place] Body Weight : 61 kg Sally Huang [...] Sally Huang Rn - 04/12/2020 3:36 EDT [place] Suicide Severity Rating Scale (C-SSRS) CSSRS Past [...] 3:36 EDT Electronically signed by Jose [facility] Conversion Crime Scene Photographer Cerner at 10/15/2022 5:23 PM CDT documented in this encounter Plan of Treatment Not on file documented as of this encounter Visit Diagnoses Not on filedocumented in this encounter
--- OUTSIDE RECORDS SUMMARY | 2025-03-18 09:01 | XMS_ITS | Encounter Summary ---
Author Organization [facility] Address [address] [place] [address] Care Team Providers Care Aircraft Structure Mechanic Name Role Phone Ulises Judd MD Primary Care Provider [phone] Encounter Details Date Type Department Care Team ([facility] st Contact Info) Description 11/11/2024 Orders Only External Location [address] [place] [address] Provider, External Social History Tobacco Use Types [...] drink first t inna in the morning (EYE-GOLF CART MAKER) to steady your nerves or to [...] Description 03/21/2025 4:00 PM EDT Office Visit [place] [facility] [address] [place] [address] Trino Trevizo MD [address] [facility] [address] [place] [address] documented as of this encounter [...] documented as of this encounter Care Teams Aircraft Structure Mechanic Relationship Specialty Start Date End Date Ulises Judd MD [address] [facility] [place] [place] [address] PCP - General 07/27/21 documented as of this encounter
--- OUTSIDE RECORDS SUMMARY | 2025-03-18 09:01 | XMS_ITS | Encounter Summary ---
Author Organization [employer] ([place], [place], [place], [place]) Address [address] [place] [address] Care Team Providers Care Bracelet Form Coverer Name Role Phone Unavailable Primary Care Provider Unavailabl e Encounter Details Date Type Department Care Team (Late st Contact Info) Description 04/12/2020 Transcribed Document [facility] [place] [address] [place] [address] ProviderAbdiel MD [address] [place] [address] Social History Tobacco Use Types Packs/Day Years [...]
--- OUTSIDE RECORDS SUMMARY | 2025-03-18 09:01 | XMS_ITS | Encounter Summary ---
Author Organization [facility] Address [address] [place] [address] Care Team Providers Care Early Childhood Aide Classroom Name Role Phone Ulises Judd MD Primary Care Provider + Reason for Visit * Reason Comments Med Refill Encounter Details Date Type Department Care Team (Late st Contact Info) Description 01/19/2025 Refill [facility] [address] [facility] [place] [address] Ulises Judd MD [address] [place] [address] Essential hypertension Social History Tobacco [...] hypertension documented in this encounter Care Teams Early Childhood Aide Classroom Relationship Specialty Start Date End Date Ulises Judd MD [address] [place] [address] PCP - General Family Medicine 10/11/21 documented as of this encounter
--- OUTSIDE RECORDS SUMMARY | 2025-03-18 09:01 | XMS_ITS | Clinical Summary ---
Author Organization [facility] Address [address] [place] [address] Care Team Providers Care Parking Enforcement Technician Name Role Phone Ulises Judd MD Primary Care Provider [phone] Allergies Active Allergy Reactions Criticality Noted Date [...] 1 (one) time each day. Active B Mmzwkvi-Cxunjc-TT ( VITAMIN B 50/B-COMPLEX PO) Take 1 tablet by mouth 1 (one) time each day. Active Multiple Vitamins-Minerals (GNP Century Mature Women's 50+) tablet Take 1 tablet by mouth 1 (one) time each day. Active HYDROcodone-aceta minophen ([place]) 7.5-325 MG tablet Take 1 tablet by [...] tablet by mouth. 5 Active HYDROcodone-aceta minophen ([place]) 10-325 MG tablet TAKE ONE TABLET BY [...] (02/13/2022): Added automatically from request for surgery [id number] Spinal cord stimulator status 08/03/2021 Arthritis 08/03/2021 [...] 3:30 PM EDT Office Visit [place] [facility] [address], [address] [place] [address] Trino Trevizo MD Lumbar spondylosis (Primary Dx); Lumbar radiculopathy; Spinal stenosis of lumbar region with neurogenic claudication; Degeneration of intervertebral disc of lumbar region with discogenic back pain and lower extremity pain 01/03/2025 Travel from Last 3 Months Immunizations Immunization [...] drink first t inna in the morning (EYE-PRINTED CIRCUIT BOARDS STRIPPER ETCHER) to steady your nerves or to get [...] Visit [place] [facility] [address], [address] [place] [address] Trino Trevizo MD [address] [place] [address] Health Maintenance Due Date Last Done Comments [facility]-Bone Density Scan 1960 [facility]-Infant/Child/Adol SDOH Screenings 1960 [facility]- SDOH Screenings 1978 [facility]-Adult SDOH Screenings 1978 [facility]-DTaP,Tdap,and Td Vaccines (1 - Tdap) 11/27/1979 CT Colonography 2005 Colonoscopy 2005 FIT 2005 FOBT 2005 Sigmoidoscopy 2005 [facility]-Zoster Vaccines (1 of 2) 2010 [facility]-RSV Vaccine: 60+ Years or (1 - Risk 60-74 years 1-dose series) 2020 SFG-[id number]-59 Vaccine (3 - Moderna risk series) 01/05/2021 [...] this topic Medical Devices Implanted Type Area Gymnastics Coach Device Identifier Shelf Expiration Date Model / Serial / Lot Cement Palacos Lv W Gent - [id number] - [id number] Implanted:Qty: 6 on 03/15/2022 by Pino Ponce MD at [facility] Cement Left: Knee Heraeus Inc-[id number] 08/28/2023 [id number] / [id number] / Putty Fibergraft Bg Xsmall 1cc - [id number] - [id number] Implanted:Qty: 1 on 08/25/2022 by Trino Trevizo MD at [facility] Implant N/A: Spine Cervical DePuy Spine Sales -[id number] 12/08/2023 [id number] / [id number] / [id number] Juan Str Ti 4.0x240 - S. - [id number] Implanted:Qty: 1 on 08/27/2022 by Trino Trevizo MD at [facility] Juan N/A: Spine Cervical DePuy Spine Sales -[id number] 08/27/2023 [id number] / . / Set Screw - S. - [id number] Implanted:Qty: 11 on 08/27/2022 by Trino Trevizo MD at [facility] Screw N/A: Spine Cervical DePuy Spine Sales LP-[id number] 08/27/2023 [id number] / . / Screw 4.0 Ply 3.5x16 - S. - [id number] Implanted:Qty: 5 on 08/27/2022 by Trino Trevizo MD at [facility] Screw N/A: Spine Cervical DePuy Spine Sales LP-[id number] 08/27/2022 [id number] / . / Screw 4.0 Ply Cfx 4.5x26 - S. - [id number] Implanted:Qty: 2 on 08/27/2022 by Trino Trevizo MD at [facility] Screw N/A: Spine Cervical DePuy Spine Sales LP-[id number] 08/27/2023 [id number] / . / Screw 4.0 Ply Cfx 4.5x30 - S. - [id number] Implanted:Qty: 2 on 08/27/2022 by Trino Trevizo MD at [facility] Screw N/A: Spine Cervical DePuy Spine Sales LP-[id number] 08/27/2023 [id number] / . / Screw 4.0 Ply 4.0x30 - S. - [id number] Implanted:Qty: 1 on 08/27/2022 by Trino Trevizo MD at [facility] Screw N/A: Spine Cervical DePuy Spine Sales LP-[id number] 08/27/2023 [id number] / . / Screw 4.0 Ply 4.0x24 - S. - [id number] Implanted:Qty: 1 on 08/27/2022 by Trino Trevizo MD at [facility] Screw N/A: Spine Cervical DePuy Spine Sales LP-[id number] 08/27/2023 [id number] / . / Tibial Baseplate Size 4 Component - [id number] - [id number] Implanted:Qty: 1 on 03/15/2022 by Pino Ponce MD at [facility] Left: Knee Onkos [employer] Inc-[id number] 05/15/2029 [id number] M / [id number] / Stem Ext [id number] Str Bullet-Tip 51n66mm - [id number] - [id number] Implanted:Qty: 1 on 03/15/2022 by Pino Ponce MD at [facility] Left: Knee [employer] Inc-[id number] 06/01/2029 [id number] / [id number] / Stem Str Fluted 36mm Collar [id number] - [id number] - [id number] Implanted:Qty: 1 on 03/15/2022 by Pino Ponce MD at [facility] Left: Knee [employer] Inc-[id number] 02/07/2029 -[id number] M / [id number] / Distalfemur [id number] - [id number] - [id number] Implanted:Qty: 1 on 03/15/2022 by Pino Ponce MD at [facility] Left: Knee [employer] Inc-[id number] 10/17/2029 [id number] / [id number] / One Size Tibial Baseplate Tapered Screw Implanted:Qty: 1 on 03/15/2022 by Pino Ponce MD at [facility] Left: Knee [employer] Inc 12/07/2025 -[id number] / [id number] / Description:NONFILE Eleos Tibial Hinge W/O Rotational Stop - [id number] - [id number] Implanted:Qty: 1 on 03/15/2022 by Pino Ponce MD at [facility] Left: Knee [employer] Inc-[id number] 07/10/2029 [id number] / [id number] / Distalfemur Axial Pin One Size - [id number] - [id number] Implanted:Qty: 1 on 03/15/2022 by Pino Ponce MD at [facility] Left: Knee [employer] Inc-[id number] 12/13/2028 [id number] / [id number] / Tibial Poly Spacer 12mm - [id number] Implanted:Qty: 1 on 03/15/2022 by Pino Ponce MD at [facility] Left: Knee [employer] Inc-[id number] 02/25/2027 [id number] / / [id number] Compression Pin, 12mm - [id number] Implanted:Qty: 2 on 08/25/2022 by Trino Trevizo MD at [facility] Spine Sales LP-[id number] 08/25/2023 [id number] / / Bengal Stack Std Lisbeth 30mm - [id number] Implanted:Qty: 1 on 08/25/2022 by Trino Trevizo MD at [facility] N/A: Spine Cervical DePuy Spine Sales LP-[id number] 08/25/2023 [id number] / / Plate Two Level 36mm - [id number] Implanted:Qty: 1 on 08/25/2022 by Trino Trevizo MD at [facility] N/A: Spine Cervical DePuy Spine Sales LP-[id number] 08/25/2023 [id number] / / Self Drilling Screw 18mm - [id number] Implanted:Qty: 3 on 08/25/2022 by Trino Trevizo MD at [facility] N/A: Spine Cervical DePuy Spine Sales LP-[id number] 08/25/2023 [id number] / / Self Drilling Screw 16mm - [id number] Implanted:Qty: 1 on 08/25/2022 by Trino Trevizo MD at [facility] N/A: Spine Cervical DePuy Spine Sales LP-[id number] 08/25/2023 [id number] / / Graft Vivigen 10cc - [id number] Implanted:Qty: 1 on 08/27/2022 by Trino Trevizo MD at [facility] N/A: Spine Cervical [id number] 04/24/2026 [id number] / / [id number] Matrix Fibergraft Bg Lg 12.5cc - [id number] Implanted:Qty: 1 on 08/27/2022 by Trino Trevizo MD at [facility] N/A: Spine Cervical DePuy Spine Sales LP-[id number] 08/01/2024 [id number] / / [id number] Description:Used part# [id number] Connector Lateral Offset 4.0 L - S. - [id number] Implanted:Qty: 1 on 08/27/2022 by Trino Trevizo MD at [facility] N/A: Spine Cervical DePuy Spine Sales LP-[id number] 08/27/2023 [id number] / . / Procedures Procedure Name Priority Date/Time Associated Diagnosis Comments HEPATITIS C ANTIBODY - ED W/REFLEX TO HCV QUANT PCR STAT 08/23/2022 1:43 PM EST HIV 1/2 ANTIBODY/ANTIGEN SCREEN WITH REFLEX TO HIV I/II DIFFERENTIATION STAT 08/23/2022 1:43 PM EST MAMMOGRAPHY BREAST SCREENING TOMOSYNTHESIS BILATERAL Routine 12/05/2021 11:30 AM EDT Visit for screening mammogram from Last 3 Months or Most Recently Relevant to Health Maintenance Results * HIV 1 & 2 Antibody/Antigen Screen (08/23/2022 1:43 PM EST) HIV 1 & 2 Antibody/Antigen Screen Non [...] ORDERABLES Final R esult Performing Organization Address City/[facility]/ZIP Co de Phone Number [facility] [address] [place] [address] * Hepatitis C Antibody - ED (08/23/2022 1:43 PM EST) Hepatitis C Antibody Negative Negative 08/23/2022 3:03 PM EST [facility] Blood Venous blood specimen / Unknown Venipuncture / Unknown 08/23/2022 1:43 PM EST 08/23/2022 2:22 PM EST us Sally Washington MD LAB BLOOD ORDERABLES Final R esult Performing Organization Address City/[facility]/ZIP Co de Phone Number [facility] [address] [place] [address] * Mammography Breast Screening Tomosynthesis Bilateral (12/05/2021 [...] to: 01/05/2019 [facility] 02/08/2020 [facility] BREAST COMPOSITION: The breasts are almost entirely fatty. FINDINGS: There are no suspicious masses, calcifications, or areas of architectural distortion in either breast. Ulises Judd MD IMG BI PROCEDURES Final Resul t from Last 3 Months or Most Recently Relevant to Health Maintenance Insurance [facility] MEDICARE Advance Directives * Full Code (Latest [...] Patient has decision-making capacity? Yes Care Teams Parking Enforcement Technician Relationship Specialty Start Date End Date Ulises Judd MD [address] [place] [address] PCP - General 07/27/21
--- OUTSIDE RECORDS SUMMARY | 2025-03-18 09:01 | XMS_ITS | Encounter Summary ---
Author Organization Healthcare Address [address] [place] [address] Care Team Providers Care Fondant Cooker Name Role Phone Ulises Judd MD Primary Care Provider [phone] Reason for Visit * Reason Comments Med Refill Encounter Details Date Type Department Care Team (Late st Contact Info) Description 05/22/2022 Refill Medical Office Building [facility] [address], [address] [place] [address] Pino Ponce MD [address] [place] [address] Social History Tobacco Use Types [...] Description 03/21/2025 4:00 PM EDT Office Visit [place] [facility] [address], [address]st [place] [address] Trino Trevizo MD [address] [facility] [address] [place] [address] documented as of this encounter Visit Diagnoses Not on filedocumented in this encounter Additional Health Concerns Assessment Noted Time A fall risk assessment has been complete d for the patient 05/07/2022 3:42 PM EST documented as of this encounter Care Teams Fondant Cooker Relationship Specialty Start Date End Date Ulises Judd MD [address] [place] [address] PCP - General 07/27/21 documented as of this encounter
--- OUTSIDE RECORDS SUMMARY | 2025-03-18 09:01 | XMS_ITS | Encounter Summary ---
Author Organization [employer] ([place], [place], [place], [place]) Address [address] [place] [address] Care Team Providers Care Director Fundraising Name Role Phone Unavailable Primary Care Provider Unavailabl e Encounter Details Date Type Department Care Team (Late st Contact Info) Description 04/12/2020 Transcribed Document [facility] Family Medicine [address] [place] [address] ProviderAbdiel MD [address] [place] [address] Social History Tobacco Use Types Packs/Day Years [...] CARROLL ROMERO RN - 04/12/2020 18:54 EDT Electronically signed by [facility] Conversion Cargo Operations Agent Cerner at 10/15/2022 5:14 PM CDT documented in this encounter Plan of Treatment Not on file documented as of this encounter Visit Diagnoses Not on filedocumented in this encounter
--- OUTSIDE RECORDS SUMMARY | 2025-03-18 09:01 | XMS_ITS | Encounter Summary ---
Author Organization [facility] ([place], [place], [place], [place]) Address [address] [place] [address] Care Team Providers Care Scale Mechanic Name Role Phone Unavailable Primary Care Provider Unavailabl e Encounter Details Date Type Department Care Team (Late st Contact Info) Description 04/13/2020 Transcribed Document [facility] [address] [place] [address] ProviderAbdiel MD [address], [place] [id number] Social History Tobacco Use Types Packs/Day Years [...] On: 04/13/2020 11:00 EDT by MAYNOR SEXTON Rn-Optimization Analyst Final Discharge Planning Transportation Needs : [...] : Yes Discharge To Care Management : Home/Residential/[facility] or Self Care -01 MAYNOR SEXTON Rn-Optimization Analyst - 04/13/2020 11:10 EDT documented in this encounter Plan of Treatment Not on file documented as of this encounter Visit Diagnoses Not on filedocumented in this encounter
--- OUTSIDE RECORDS SUMMARY | 2025-03-18 09:01 | XMS_ITS | Encounter Summary ---
Author Organization [employer] ([place], [place], [place], [place]) Address [address] [place] [address] Care Team Providers Care Beauty Shop Manager Name Role Phone Unavailable Primary Care Provider Unavailabl e Encounter Details Date Type Department Care Team (Late st Contact Info) Description 04/12/2020 Transcribed Document [facility] Family Medicine [address] [place] [address] ProviderAbdiel MD [address] [place] [address] Social History Tobacco Use Types Packs/Day Years [...] On: 04/12/2020 10:39 EDT by CARROLL ROMERO, marketing and development coordinator Documentation Patient Disposition, General : Discharge Discharge To : Home with ambulatory/outpatient follow-up Education Comment : CARROLL Garnett, RN - 04/12/2020 10:39 EDT Electronically signed by Bogdan Garcia Conversion C2 Tactical Analysis Technician Cerner at 10/15/2022 5:22 PM CDT documented in this encounter Plan of Treatment Not on file documented as of this encounter Visit Diagnoses Not on filedocumented in this encounter
--- OUTSIDE RECORDS SUMMARY | 2025-03-18 09:01 | XMS_ITS | Referral Summary ---
Author Organization [employer] ([place], [place], [place], [place]) Address [address] [place] [address] Care Team Providers Care Manager Loan Name Role Phone Unavailable Primary Care Provider [...]
--- OUTSIDE RECORDS SUMMARY | 2025-03-18 09:01 | XMS_ITS | Encounter Summary ---
Author Organization [employer] ([place], [place], [place], [place]) Address [address] [place] [address] Care Team Providers Care Firmware Engineer Name Role Phone Unavailable Primary Care Provider Unavailabl e Encounter Details Date Type Department Care Team (Late st Contact Info) Description 04/18/2020 Transcribed Document [facility] Family Medicine [address] [place] [address] ProviderAbdiel MD [address] [place] [address] Social History Tobacco Use Types [...]
--- OUTSIDE RECORDS SUMMARY | 2025-03-18 09:01 | XMS_ITS | Encounter Summary ---
Author Organization [facility] Address [address] [place] [address] Care Team Providers Care Singing Telegram Performer Name Role Phone Ulises Judd MD Primary Care Provider [phone] Reason for Visit * Reason Comments Med Refill Encounter Details Date Type Department Care Team (Late st Contact Info) Description 11/21/2023 Refill [place] [facility] [address], [address] [place] [address] Trino Trevizo MD [address] [place] [address] Status post cervical spinal fusion [...] drink first t inna in the morning (EYE-MOLD POLISHER) to steady your nerves or to get [...] Visit [place] [facility] [address], [address] [place] [address] Trino Trevizo MD [address] [facility] [facility] [address] [place] [address] documented as of this encounter [...] documented as of this encounter Care Teams Singing Telegram Performer Relationship Specialty Start Date End Date Ulises Judd MD [address] [place] [address] PCP - General 07/27/21 documented as of this encounter
--- OUTSIDE RECORDS SUMMARY | 2025-03-18 09:01 | XMS_ITS | Encounter Summary ---
Author Organization [facility] Address [address] [place] [address] Care Team Providers Care Package Line Operator Name Role Phone Ulises Judd MD Primary Care Provider [phone] Reason for Visit * Reason Comments Med Refill Encounter Details Date Type Department Care Team (Late st Contact Info) Description 02/28/2023 Refill [place] [facility] [address], [address] [place] [address] Trino Trevizo MD [address] [place] [address] Cervical myelopathy with cervical radiculopathy [...] drink first t inna in the morning (EYE-FLAT POLISHER) to steady your nerves or to [...] Visit [place] [facility] [address], [address] [place] [address] Trino Trevizo MD [address] [facility] [address] [place] [address] documented as of this encounter [...] documented as of this encounter Care Teams Package Line Operator Relationship Specialty Start Date End Date Ulises Judd MD [address] [place] [address] PCP - General 07/27/21 documented as of this encounter
--- OUTSIDE RECORDS SUMMARY | 2025-03-18 09:01 | XMS_ITS | Encounter Summary ---
Author Organization [facility] Address [address] [place] [id number] Care Team Providers Care Men'S Leather Dress Belt Maker Name Role Phone Ulises Judd MD Primary Care Provider + Encounter Details Date Type Department Care Team (Late st Contact Info) Description 10/04/2024 Results Follow-Up [facility]ILY [facility] [address] [place] [address] Ulises Judd MD [address] [place] [address] Social History Tobacco Use Types [...] on filedocumented in this encounter Care Teams Men'S Leather Dress Belt Maker Relationship Specialty Start Date End Date Ulises Judd MD [address] [place] [address] PCP - General Family Medicine 10/11/21 documented as of this encounter
--- OUTSIDE RECORDS SUMMARY | 2025-03-18 09:02 | XMS_ITS | Encounter Summary ---
Author Organization [employer] ([place], [place], [place], [place]) Address [address] [place] [address] Care Team Providers Care Recruitment Internship Name Role Phone Unavailable Primary Care Provider Unavailabl e Encounter Details Date Type Department Care Team (Late st Contact Info) Description 04/11/2020 Transcribed Document [facility] [place] [facility] [address] [place] [address] ProviderAbdiel MD [address] [place] [address] Social History Tobacco Use Types Packs/Day Years [...]
--- OUTSIDE RECORDS SUMMARY | 2025-03-18 09:02 | XMS_ITS | Encounter Summary ---
Author Organization [employer] ([place], [place], [place], [place]) Address [address] [place] [address] Care Team Providers Care Air Brake Man Name Role Phone Unavailable Primary Care Provider Unavailabl e Encounter Details Date Type Department Care Team (Late st Contact Info) Description 04/11/2020 Transcribed Document [facility] [place] [address] [place] [address] ProviderAbdiel MD [address] [place] [address] Social History Tobacco Use Types Packs/Day Years [...] : marky Emergency Contact #1 Relationship : [phone] Emergency Contact #2 : none Emergency Contact #2 Phone Number : none Emergency Contact #2 Relationship : n one Primary Language : Beninese Communication Barrier : None Dairy Chemist Needed : No CARROLL ROMERO RN - [...] Scale Risk Level : 25-45 Medium Risk [place] Fall Interventions : Adequate lighting, Assistive devices [...] Source : Measured Height Entry Format : [place] Height, Feet : 5 ft(Converted to: 152 cm, 60 Inch) Height, Inches : 7 Inch(Converted to: 0 ft 7 Inch, 17.78 cm) Clinical Height : 170.18 cm Weight Source : Standing scale Weight Entry Format : [place] Clinical Dosing Weight : 116.82 kg Weight, Pounds : 257 lb Body Surface Area (BSA) : 2.25 m2 Body Mass Index : 40.3 kg/m2 (>HHI) Sylvia Body Weight : 61 kg CARROLL ROMERO [...] CARROLL ROMERO RN - 04/11/2020 14:38 EDT [place] Suicide Severity Rating Scale (C-SSRS) CSSRS Past [...] - 04/11/2020 14:38 EDT Electronically signed by [facility] Conversion Spa Receptionist Cerner at 10/15/2022 5:26 PM CDT documented in this encounter Plan of Treatment Not on file documented as of this encounter Visit Diagnoses Not on filedocumented in this encounter
--- OUTSIDE RECORDS SUMMARY | 2025-03-18 09:02 | XMS_ITS | Encounter Summary ---
Author Organization [facility] Address [address] [place] [address] Care Team Providers Care Rebar Worker Name Role Phone Ulises Judd MD Primary Care Provider [phone] Reason for Visit * Reason Comments Med Refill Encounter Details Date Type Department Care Team (Late st Contact Info) Description 04/20/2024 Refill [place] [facility] [address], [address] [place] [address] Trino Trevizo MD [address] [place] [address] Status post cervical spinal fusion [...] drink first t inna in the morning (EYE-HEATING UNIT INSTALLER) to steady your nerves or to [...] Visit [place] [facility] [address], [address] [place] [address] Trino Trevizo MD [address] [facility] [address] [place] [address] documented as of this encounter [...] documented as of this encounter Care Teams Rebar Worker Relationship Specialty Start Date End Date Ulises Judd MD [address] [place] [address] PCP - General 07/27/21 documented as of this encounter
--- OUTSIDE RECORDS SUMMARY | 2025-03-18 09:02 | XMS_ITS | Encounter Summary ---
Author Organization [employer] ([place], [place], [place], [place]) Address [address] [place] [address] Care Team Providers Care Equipment Operator Name Role Phone Unavailable Primary Care Provider Unavailabl e Encounter Details Date Type Department Care Team (Late st Contact Info) Description 04/11/2020 Transcribed Document [facility] Family Medicine [address] [place] [address] ProviderAbdiel MD [address], [place] [id number] Social History Tobacco Use Types Packs/Day Years [...] Source : Measured Height Entry Format : [place] Height, Feet : 5 ft(Converted to: 152 cm, 60 Inch) Height, Inches : 7 Inch(Converted to: 0 ft 7 Inch, 17.78 cm) Clinical Height : 170.18 cm Weight Source : Standing scale Weight Entry Format : [place] Clinical Dosing Weight : 116.82 kg Weight, Pounds : 257 lb Body Surface Area (BSA) : 2.25 m2 Body Mass Index : 40.3 kg/m2 (>HHI) [place] Body Weight : 61 kg DONNA HUTCHINSON [...] DONNA HUTCHINSON RN - 04/11/2020 7:02 EDT [place] Suicide Severity Rating Scale (C-SSRS) CSSRS Past [...] Number : Emergency Contact #1 Relationship : [phone] Emergency Contact #2 : none Emergency Contact #2 Phone Number : none Emergency Contact #2 Relationship : n one Primary Language : Rwandan Communication Barrier : None Test And Turn Up Technician Needed : No DONNA HUTCHINSON RN - [...] Scale Risk Level : 0-24 Low Risk [place] Fall Interventions : Adequate lighting, Assistive devices [...]
--- OUTSIDE RECORDS SUMMARY | 2025-03-18 09:02 | XMS_ITS | Encounter Summary ---
Author Organization [employer] ([place], [place], [place], [place]) Address [address] [place] [address] Care Team Providers Care Celery Tier Name Role Phone Unavailable Primary Care Provider Unavailabl e Encounter Details Date Type Department Care Team (Late st Contact Info) Description 04/11/2020 Transcribed Document [facility] [place] [address] [place] [address] ProviderAbdiel MD [address] [place] [id number] Social History Tobacco Use Types Packs/Day Years Used Date Smoking Tobacco: Never Assessed Comments Unknown Sex and Gender Information Value Date Recorded Sex Assigned at Not on file Legal Sex Female 5:08 PM CDT Gender Identity Not on file Sexual Orientation Not on file documented as of this encounter Miscellaneous Notes * Cerner Conversion Note - Abdiel ProviderMD - 04/11/2020 8:00 AM CDT [facility] Main OR PACU Summary Primary Physician: SERGEY PERKINS MD-CAR Finalized Date/Time: 04/11/20 14:25:18 Pt. Name: MICHAELLE LEONARD/Sex: 1960 Female Med Rec #: [id number] Physician: SERGEY PERKINS MD-CAR Financial #: [id number] Pt. Type: O Room/Bed: [facility]/1 Admit/Disch: 04/11/20 05:59:00 - Institution: [facility] Main OR PACU I Case Times Entry [...]
--- OUTSIDE RECORDS SUMMARY | 2025-03-18 09:02 | XMS_ITS | Encounter Summary ---
Author Organization [facility] Address [address] [place] [address] Care Team Providers Care Cement Patcher Name Role Phone Ulises Judd MD Primary Care Provider [phone] Reason for Visit * Reason Comments Med Refill Encounter Details Date Type Department Care Team (Late st Contact Info) Description 01/23/2024 [facility]ill [place] [facility] [address] [place] [address] Tirno Trevizo MD [address] [place] [address] Status post cervical spinal fusion [...] drink first t inna in the morning (EYE-SUPERVISOR SILVERING DEPARTMENT) to steady your nerves or to get [...] 01/23/2024 4:11 PM EDT Report # : [id number] was reviewed and appropriate. Medication refill for Lyrica was sent to Dr. Trevizo for authorization. documented in this encounter Plan of Treatment Upcoming Encounters Date Type Department Care Team (Late st Contact Info) Description 03/21/2025 4:00 PM EDT Office Visit [place] [facility] [address] [place] [address] Trino Trevizo MD [address] [facility] [address] [place] [address] documented as of this encounter Visit Diagnoses Diagnosis Status post cervical spinal fusion Arthrodesis status documented in this encounter Additional Health Concerns Assessment Noted Time A fall risk assessment has been complete d for the patient 08/25/2023 2:32 PM EST A Body Mass Index follow-up plan has been documented for the patient 08/26/2023 7:29 AM EST documented as of this encounter Care Teams Cement Patcher Relationship Specialty Start Date End Date Ulises Judd MD [address] [place] [address] PCP - General 07/27/21 documented as of this encounter
--- OUTSIDE RECORDS SUMMARY | 2025-03-18 09:02 | XMS_ITS | Encounter Summary ---
Author Organization [employer] ([place], [place], [place], [place]) Address [address] [place] [address] Care Team Providers Care Tooth Clerk Name Role Phone Unavailable Primary Care Provider Unavailabl e Encounter Details Date Type Department Care Team (Late st Contact Info) Description 04/11/2020 Transcribed Document [facility] [place] Family Medicine [address] [place] [address] ProviderAbdiel MD [address] [place] [address] Social History Tobacco Use Types Packs/Day Years [...]
--- OUTSIDE RECORDS SUMMARY | 2025-03-18 09:02 | XMS_ITS | Encounter Summary ---
Author Organization [facility] Address [address] [place] [address] Care Team Providers Care Cnc Machine Operator Name Role Phone Ulises Judd MD Primary Care Provider [phone] Reason for Visit * Reason Comments Med Refill Encounter Details Date Type Department Care Team (Late st Contact Info) Description 10/23/2023 Refill [place] [facility] [address] [place] [address] Trino Trevizo MD [address] [place] [address] Status post cervical spinal fusion; [...] drink first t inna in the morning (EYE-RADAR ENGINEER) to steady your nerves or to get [...] Description 03/21/2025 4:00 PM EDT Office Visit [facility] [address] [place] [address] Trino Trevizo MD [address] [facility] [address] [place] [address] documented as of this encounter Visit Diagnoses [...] documented as of this encounter Care Teams Cnc Machine Operator Relationship Specialty Start Date End Date Ulises Judd MD [address] [facility] [place] [address] PCP - General 07/27/21 documented as of this encounter
--- OUTSIDE RECORDS SUMMARY | 2025-03-18 09:02 | XMS_ITS | Encounter Summary ---
Author Organization [employer] ([place], [place], [place], [place]) Address [address] [place] [address] Care Team Providers Care Canvas Shop Laborer Name Role Phone Unavailable Primary Care Provider Unavailabl e Encounter Details Date Type Department Care Team (Late st Contact Info) Description 04/11/2020 Transcribed Document [facility] [place] Family Medicine [address] [place] [address] ProviderAbdiel MD [address], [place] [id number] Social History Tobacco Use Types Packs/Day Years [...] provocation. 7. US guided venous access. ATTENDING WEDDING DESIGNER: Cha Jean-Baptiste MD REFERRING PHYSICIAN: Chris Hernandez [...] vein. 6. Intracardiac echocardiography: A phased array 10-[place] ICE catheter was advanced into the right [...] CATHETER PROPERTIES: 1. Right femoral vein: An 7-[place] short sheath,Biosense Salazar decapolar catheter, in coronary sinus, SVC for diaphragmatic pacing. 2. Left femoral vein: A 11-[place] short sheath, Biosense Salazar, Sound Star ICE catheter. 3. Right femoral vein: An 8-[place] long sheath (SL1), left atrium, exchanged with 15-[place] FlexCath steerable sheath. 4. Right femoral artery: A 4-[place] short sheath. ADMINISTERED MEDICATIONS: The procedure was [...] (achieve) manipulation. Penta-array was exchanged with the DAVIDsTEA Front Advance catheter 3D voltage map of LA and PV's was obtained, showed overall normal voltage on posterior wall, with wide area circumferential ablation around pulmonary veins. Isoproterenol was then infused up to 20 mcg/min. No triggers were noted. EP study was then performed: AH=78 msec, HV=50 msec. MO 148 msec, QRS99 msec. Pent-array was placed [...]
--- OUTSIDE RECORDS SUMMARY | 2025-03-18 09:02 | XMS_ITS | Encounter Summary ---
Author Organization [employer] ([place], [place], [place], [place]) Address [address] [place] [address] Care Team Providers Care Senior Dot Net Developer Name Role Phone Unavailable Primary Care Provider Unavailabl e Encounter Details Date Type Department Care Team (Late st Contact Info) Description 04/11/2020 Transcribed Document [facility] [place] [address] [place] [address] ProviderAbdiel MD [address] [place] [address] Social History Tobacco Use Types Packs/Day Years [...]
== END 2025-03-18 23:59 | disposition home or self-care (01) ==
LOC: RAD 08:57
PROVIDERS: PCP Family Medicine; Visit Provider Physician Assistant Medical
DX: M48.062 Spinal stenosis, lumbar region with neurogenic claudication (principal); M99.73 Connective tissue and disc stenosis of intervertebral foramina of lumbar region; M47.26 Other spondylosis with radiculopathy, lumbar region; M51.362 Other intervertebral disc degeneration, lumbar region with discogenic back pain and lower extremity pain; R93.7 Abnormal findings on diagnostic imaging of other parts of musculoskeletal system
CPT/HCPCS: 72131

== ENCOUNTER 2025-03-22 09:00 | Outpatient (RCR) | payer MEDICARE, SELFPAY | END 2025-03-22 23:59 | disposition home or self-care (01) | LOC: PT 09:00 | PROVIDERS: Visit Provider Physician Assistant Medical | DX: M47.26 Other spondylosis with radiculopathy, lumbar region (principal) | CPT/HCPCS: 97014; 97110; 97140; G0283 ==

== ENCOUNTER 2025-04-26 10:44 | Day surgery (SDC) | payer MEDICARE, SELFPAY ==
[2025-04-26 10:56] VITALS: BP 116/76; PULSE 54; RESP 16; O2SAT 100; BMI 36.3
[2025-04-26] MEDS: BUPIVACAINE 0.25% 10ML INJ 25 MG IJ (11:24)
[2025-04-26] MEDS: DEXAMETHASONE 10MG/ML 1ML VIAL 10 MG (11:24)
[2025-04-26] MEDS: LIDOCAINE 1% 5ML PF VIAL 5 ML (11:24)
[2025-04-26 11:26] VITALS: BP 116/70; PULSE 54; RESP 18; O2SAT 100
--- NOTE | 2025-04-26 11:28 | EXP.PAIN.PRO ---
Procedure Date: 04/26/25 Time: 11:20 Anesthesiologist:: Pino Steele CRNA Complications:: None Pre-procedure Diagnosis:: DJD right knee. Chronic right knee pain. Status post left TKA. Chronic left knee pain. Post-procedure Diagnosis:: Same. Indications for Procedure:: Patient is a pleasant 64-year-old female who comes our clinic today for right intra-articular knee injection of cortisone and local anesthetic. Also, left infrapatellar nerve block. Patient describes bilateral knee pain as constant, dull, aching. She reports left TKA several years ago. However, she continues having left knee pain that she describes as aching. Procedure Details:: Details of the procedure explained to the patient. The patient taken procedure room placed in the sitting position. The over the right knee was cleaned using chlorhexidine as a cleansing solution. Using a 22-gauge inch and half needle the right knee joint was accessed from the anterior lateral position. After negative aspiration 4 cc of 1% lidocaine +4 cc of 0.25% Marcaine and 10 mg of dexamethasone was injected. Patient tolerated procedure without difficulty. There are no complications. Details of the procedure explained to the patient. The patient taken procedure and placed in the sitting position. The over the left knee was cleaned using chlorhexidine as a cleansing solution. Using a 25-gauge inch and half needle the left infrapatellar branch of the saphenous nerve was accessed with ease. After negative aspiration 4 cc of 1% lidocaine +4 cc of 0.25% Marcaine and 10 mg of dexamethasone was injected incrementally. Patient tolerated procedure without difficulty. Dental complications. Plan and Disposition:: Patient was discharged without incident.
[2025-04-26 11:29] VITALS: BP 125/75; PULSE 52; RESP 18; O2SAT 97
[2025-04-26 11:30] VITALS: BP 116/70; PULSE 54; RESP 18; O2SAT 100
== END 2025-04-26 11:29 | disposition home or self-care (01) ==
PROVIDERS: PCP Family Medicine; Visit Provider Nurse Anesthetist, Certified Registered
DX: M17.11 Unilateral primary osteoarthritis, right knee (principal); M25.562 Pain in left knee; G89.29 Other chronic pain; I10 Essential (primary) hypertension; E03.9 Hypothyroidism, unspecified; F17.210 Nicotine dependence, cigarettes, uncomplicated; E66.9 Obesity, unspecified; Z68.36 Body mass index [BMI] 36.0-36.9, adult; Z96.652 Presence of left artificial knee joint; Z98.1 Arthrodesis status; Z98.890 Other specified postprocedural states; Z88.8 Allergy status to other drugs, medicaments and biological substances; Z79.890 Hormone replacement therapy; Z79.891 Long term (current) use of opiate analgesic; Z79.899 Other long term (current) drug therapy
CPT/HCPCS: 20610; 64447; J0665; J1100; J2003